=== PATIENT | female | born 1935 | race Caucasian/White ===

== ENCOUNTER 2023-08-24 05:38 | Outpatient (REF) | payer MEDICARE, SELFPAY ==
[2023-08-24 06:05] LABS: INR 2.06
== END 2023-08-24 05:39 | disposition home or self-care (01) ==
LOC: LAB 05:38
DX: I50.9 Heart failure, unspecified (principal)
CPT/HCPCS: 36415; 85610

== ENCOUNTER 2023-09-07 19:07 | Outpatient (REF) | payer MEDICARE, SELFPAY ==
--- OUTSIDE RECORDS SUMMARY | 2023-09-07 19:12 | XMS_ITS | CCD ---
Author Name Unknown Address [address] [place] [address] Organization [facility] Care Team Providers Care Senior Financial Accountant Name Role Phone Favio Garzonuso Primary Care Provider [phone] ZHEN SOLO Referring Unavailable ORTEGA GONZALEZ I Primary Care Unavailable ALAMINA, FOLUSO Primary Care Unavailable ALAMINA, FOLUSO Primary Care Unavailable EDIE HALL Attending Unavailable ALAMINA, FOLUSO Primary Care Unavailable HAMZAH LUJAN Attending Unavailable ELOY SULLIVAN Consulting Unavailable THOMAS CHANG Attending Unavailable THOMAS CHANG Admitting Unavailable ALAMINA, FOLUSO Primary Care Unavailable CARLOS ALBERTO BEST Consulting Unavailable TYRESE CLEMONS Consulting Unavailable HAMZAH BRISCOE Consulting Unavailable Medications Current Medications Medication Drug Class(es) Dates Sig (Normalized) Sig (Original) Acetaminophen (3 sources) Start: 12-09-2022 acetaminophen (TYLENOL) tablet 650 mg take 1 tablet by angel th every six hours as needed acetaminophen (TYLENOL) 500 MG tablet Ta ke 1 tablet by mouth every 6 hours as needed 0 Active Acetaminophen / HYDROcodone (1 source) Opioid Agonist Start: 12-09-2022 HYDROcodone-acetaminophen (NORCO) 5-325 MG per tablet 1 tablet apixaban 2.5 mg oral tablet (3 sources) Factor Xa Inhibitor Start: 11-20-2022 End: 12-20-2022 take 1 tablet by mouth twice daily apixaban (ELIQUIS) 2.5 MG TABS tablet Take 1 tablet by mouth 2 times daily 60 tablet 0 11/20/2022 12/20/2022 Active aspirin 81 mg chewable tablet (2 sources) Platelet Aggregation Inhibitor, Nonsteroidal Anti-inflammator y Drug Start: 03-23-2021 aspirin 81 MG chewable tablet Take 1 tablet by mouth 0 03/23/2021 Active 4 ml furosemide 10 mg/ml injection (5 sources) Loop Diuretic Start: 12-10-2022 furosemide (LASIX) injection 40 mg Start: 12-09-2022 End: 12-10-2022 furosemide (LASIX) injection 20 mg Start: 11-13-2022 End: 12-14-2022 furosemide (LASIX) 20 MG tab let TAKE 1 TABLET BY MOUTH NEEDED FOR LEG EDEMA 0 11/13/2022 Active 1 ml hydrALAZINE hydrochloride 20 mg/ml injection (1 source) Arteriolar Vasodilator Start: 12-11-2022 hydrALAZINE (APRESOLINE) injection 10 mg 1 ml HYDROmorphone hydrochloride 1 mg/ml cartridge (1 source) Opioid Agonist Start: 12-11-2022 HYDROmorphone (DILAUDID) injection 0.5 mg 100 ml magnesium sulfate 10 mg/ml injection (1 source) Start: 12-09-2022 take 1000 mg intravenously every hour as needed 1,000 mg, IntraVENous, at 100 mL/hr, Administer over 1 Hours, PRN, Other, Per IV Magnesium Replacement Protocol, Starting on 12/09/22 at 0805 Mg Lab &nb sp; Replaceme nt Action 1.4-1. 6 &nbsp ; 1 gram IVPB x 2 doses & nbsp; & nbsp; & nbsp; & nbsp; & nbsp; & nbsp; (2 gram Total) 1.0-1. 3 &nbsp ; 1 gram IVPB x 4 doses & nbsp; & nbsp; & nbsp; & nbsp; & nbsp; & nbsp; (4 gram Total) <1.0&n bsp; &n bsp; &n bsp; CALL PHYSICIAN and 1 gram IVPB x 4 doses (4 gram Total) Infuse at 1 gram/hr Repea t Mag level next AM Protocol not for use in Patients with CrCl<30ml/min&nbsp ; midodrine hydrochloride 10 mg oral tablet (3 sources) alpha-Adrenergic Agonist Start: 12-14-2022 take 0.5 tablet by mouth three times daily midodrine (PROAMATINE) 10 MG tablet Take 0.5 tablets by mouth 3 times daily 90 tablet 3 12/14/2022 Active Start: 12-12-2022 midodrine (PRO AMATINE) tablet 10 mg 1 ml morphine sulfate 2 mg/ml cartridge (1 source) Opioid Agonist Start: 12-11-2022 morphine (PF) injection 1 mg ondansetron (ZOFRAN-ODT) disintegrating tablet 4 mg (1 source) Start: 12-09-2022 ondansetron (Z OFRAN-ODT) disintegrating tablet 4 mg Potassium Chloride (1 source) Start: 12-09-2022 potassium chlo ride (KLOR-CON M) extended release tablet 40 mEq Completed/Discontinued Medications Medication Drug Class(es) Dates Sig (Normalized) Sig (Original) acetaminophen 325 mg / oxyCODONE hydrochloride 5 mg oral tablet (1 source) Opioid Agonist Start: 12-08-2022 End: 12-08-2022 oxyCODONE-acetamin ophen (PERCOCET) 5-325 MG per tablet 1 tablet digoxin 0.125 mg oral tablet (3 sources) Cardiac Glycoside Start: 12-10-2022 take 0.125 mg by mouth once daily 0.125 mg, Oral, DAILY, First dose on Sat12/10/22 at 0900, Until Discontinued Start: 05-21-2022 digoxin (LANOX IN) 125 MCG tablet Take 1 tablet by mouth 0 05/21/2022 Active 0.4 ml enoxaparin sodium 100 mg/ml prefilled syringe (1 source) Low Molecular Weight Heparin Start: 12-09-2022 End: 12-12-2022 inject 40 mg by subcutaneous injection once daily 40 mg, SubCUTAneous, DAILY, First dose on 12/09/22 at 0900, Until Discontinued Indication of Use: Prophylaxis-DVT/PE Administer by deep subCUTAneous injection with pt lying down. Alternate injection sites on abdominal wall. Do not rub site after injection. Check with provider prior to any invasive procedure. 24 hr metoprolol succinate 25 mg extended release oral tablet (2 sources) beta-Adrenergic Felipe Start: 11-09-2022 take 25 mg by mouth once daily 25 mg, Oral, DAILY, First dose on Sat12/09/22 at 2200, Until Discontinued Do not crush or chew. polyethylene glycol [id number] [id number] mg powder for oral solution (1 source) Osmotic Laxative Start: 12-09-2022 17 g, Oral, DAILY PRN, Starting on Sat12/09/22 at 0805, Until Discontinued, Constipation First line therapy for constipation sacubitril 24 mg / valsartan 26 mg oral tablet (3 sources) Angiotensin 2 Receptor Felipe Start: 12-09-2022 take 1 tablet by mouth twice daily 1 tablet, Oral, 2 TIMES DAILY, First dose on Sat12/09/22 at 2200, Until Discontinued Start: 06-02-2021 take 24-26 mg by angel th once sacubitril-valsartan (ENTRESTO) 24-26 MG per tablet Take 1 tablet by mouth 2 times daily 0 06/02/2021 Active 5 ml sodium chloride 9 mg/ml injection (8 sources) Start: 12-11-2022 0.9 % sodium c hloride infusion Start: 12-11-2022 End: 12-13-2022 sodium chloride flush 0.9 % injection 5-40 mL Start: 12-09-2022 IntraVENous, a t 5-250 mL/hr, PRN, if patient receiving piggyback infusions and maintenance fluids are not ordered OR KVO fluids to protect IV site / prevent frequent line interruptions/ long duration, Starting on Sat12/09/22 at 0805 For piggyback infusion, administer at same rate as piggyback for a total of 25 mL. Enter 25 mL into dose field and piggyback rate into rate field of order. If piggyback is infusing at a rate less than 100 mL/hr, enter 25 mL into dose field and 100 mL/hr into rate field of order. For KVO fluids, enter rate of 20 mL/hr or less into rate field of order. Start: 12-09-2022 take 1 dose intraven ously twice daily 5-40 mL, IntraVENous, EVERY 12 HOURS SCHEDULED (2 times per day), First dose on Sat12/09/22 at 0900, Until Discontinued For Line Patency: Peripheral IV = 5 mL; Midline or Central Line = 10 mL/lumen. If following IV push medication, administer flush at same rate as the IV push. Flush volume is determined by type of infusion therapy being given. For non-viscous solutions use: Peripheral IV = 5 mL Midline or Central Line = 10 mL/lumen For viscous solutions (i.e. blood components, parenteral nutrition, contrast media, or after obtaining blood sample) use: Peripheral IV = 10 mL Midline or Central Line = 20 mL/lumen Start: 12-09-2022 take 10 mL intraveno usly once as needed 10 mL, IntraVENous, PRN, Starting on Sat12/09/22 at 0805, Until Discontinued, Line Care, After every IV line use Problems Problem Classification Problem Date Documented Da te Episodic/Chronic Abdominal hernia (1 source) Umbilical hernia without obstruction or gangrene; Translations: [Umbilical hernia without obstruction or gangrene] Onset: 01-24-2023 Episodic Cardiac dysrhythmias (3 sources) Atrial fibrillation with rapid ventricular response; Translations: [Unspecified atrial fibrillation] Onset: 12-09-2022 Chronic Congestive heart failure; nonhypertensive (1 source) Heart failure, unspecified; Translations: [Heart failure, unspecified] Onset: 12-25-2022 Chronic Genitourinary symptoms and ill-defined conditions (1 source) Retention of urine, unspecified; Translations: [Retention of urine, unspecified] Onset: 01-24-2023 Episodic Other fractures (1 source) Compression fracture of lumbar spine; Translations: [Wedge compression fracture of unspecified lumbar vertebra, sequela] Episodic Other fractures (3 sources) Closed fracture lumbar vertebra; Translations: [Unspecified fracture of unspecified lumbar vertebra, initial encounter for closed fracture] Onset: 12-09-2022 Episodic Other fractures (1 source) Other specified fracture of right pubis, initial encounter for closed fracture; Translations: [Other specified fracture of right pubis, initial encounter for closed fracture] Onset: 01-24-2023 Episodic Other fractures (1 source) Unspecified fracture of sacrum, initial encounter for closed fracture; Translations: [Unspecified fracture of sacrum, initial encounter for closed fracture] Onset: 01-24-2023 Episodic Other fractures (1 source) Wedge compression fracture of unspecified lumbar vertebra, sequela; Translations: [Wedge compression fracture of unspecified lumbar vertebra, sequela] Onset: 12-08-2022 Episodic Other gastrointestinal disorders (1 source) Constipation, unspecified; Translations: [Constipation, unspecified] Onset: 01-24-2023 Episodic Other screening for suspected conditions (not mental disorders or infectious disease) (1 source) Other specified abnormal findings of blood chemistry; Translations: [Other specified abnormal findings of blood chemistry] Onset: 12-25-2022 Episodic Pleurisy; pneumothorax; pulmonary collapse (3 sources) Pleural effusion; Translations: [Pleural effusion, not elsewhere classified] Onset: 12-09-2022 Episodic Residual codes; unclassified (3 sources) Edema, generalized; Translations: [Generalized edema] Onset: 12-09-2022 Episodic Residual codes; unclassified (1 source) Pain, unspecified; Translations: [Pain, unspecified] Onset: 01-30-2023 Episodic Urinary tract infections (1 source) Urinary tract infection, site not specified; Translations: [Urinary tract infection, site not specified] Onset: 12-25-2022 Episodic Results Test Name Value Interpretation Reference Range Facility XR PELVIS (MIN 3 VIEWS)on XR PELVIS (MIN 3 VIEWS) History: 87yo FFSH with right pelvic pain Comparison: None Findings: 3 views of the pelvis (AP pelvis, inlet/outlet) showing the inferior and superior pubic ramus fracture unchanged in alignment or displacement. No significant interval healing. No soft tissue abnormalities. Scoliotic change about lumbar spine with noted bone cement within lumbar vertebrae. Osteopenic bone. Mild bilateral hip osteoarthritis. Impression: Right superior and inferior pubic ramus fracture Interpreted by: Zhen Solo DO Signed by: Zhen Solo DO 02/12/23 Final result Normal [facility] CT ABDOMEN PELVIS WO CONTRAS Ton 01-25-2023 CT ABDOMEN PELVIS WO CONTRAST EXAMINATION: CT OF THE ABDOMEN AND PELVIS WITHOUT CONTRAST 01/24/2023 8:47 pm TECHNIQUE: CT of the abdomen and pelvis was performed without the administration of intravenous contrast. Multiplanar reformatted images are provided for review. Automated exposure control, iterative reconstruction, and/or weight based adjustment of the mA/kV was utilized to reduce the radiation dose to as low as reasonably achievable. COMPARISON: Lumbar spine CT 12/08/2022. HISTORY: ORDERING SYSTEM PROVIDED HISTORY: fall yesterday, outpatient x-ray shows right superior rami fracture, low back and pelvic pain TECHNOLOGIST PROVIDED HISTORY: fall yesterday, outpatient x-ray shows right superior rami fracture, low back and pelvic pain Decision Support Exception - unselect if not a suspected or confirmed emergency medical condition->Emergency Medical Condition (MA) Reason for Exam: h/o compression fractures, new fall yesterday, low back and pelvic pain, outpatient x-ray shows right superior rami fracture FINDINGS: Lower Chest: There is a trace right pleural effusion. There is no confluent consolidation at the lung bases. Organs: The liver, gallbladder, spleen, adrenal glands and pancreas are unremarkable. There is mild bilateral hydronephrosis. GI/Bowel: No bowel dilatation or bowel wall thickening is noted. There is a moderate amount of stool in the colon. An umbilical hernia contains a loop of small bowel. Pelvis: There is moderate to severe distension of the bladder. The uterus is unremarkable. Peritoneum/Retroperit oneum: No evidence of lymphadenopathy. Aorta is normal in caliber. No fat stranding, free fluid, free air or focal fluid collection is identified. Bones/Soft Tissues: There is a nondisplaced fracture of the right sacral ala. There is an oblique fracture of the medial aspect of the right superior pubic ramus with mild inferior displacement of the medial fracture fragment. There is a fracture of the inferior ramus with lateral displacement of the anterior fracture fragment. There has been treatment of a T12 compression fracture and of an L3 compression fracture in the interval. Compression fractures at L1, L2 and L3 appear unchanged. No other fracture is noted. IMPRESSION: 1. Right obturator ring fractures including an oblique fracture of the superior ramus medially with mild inferior displacement of the medial fracture fragment and a transverse inferior ramus fracture with lateral displacement of the anterior fracture fragment. There is also a nondisplaced right sacral lydia are fracture. 2. No CT evidence of acute injury elsewhere in the abdomen or pelvis. 3. Moderate to severe distension of the bladder which raise the question of bladder outlet obstruction and mild bilateral hydronephrosis which is likely related. 4. Trace right pleural effusion. 5. Small bowel containing umbilical hernia with no associated bowel obstruction. 6. Moderate stool in the colon which could reflect constipation. Interpreted by: Abdifatah Ac MD Signed by: Abdifatah Ac MD 01/24/23 Final result Normal [facility] CT HEAD WO CONTRASTon 2022 CT HEAD WO CONTRAST EXAMINATION: CT OF THE HEAD WITHOUT CONTRAST 01/24/2023 6:47 pm TECHNIQUE: CT of the head was performed without the administration of intravenous contrast. Automated exposure control, iterative reconstruction, and/or weight based adjustment of the mA/kV was utilized to reduce the radiation dose to as low as reasonably achievable. COMPARISON: None. HISTORY: ORDERING SYSTEM PROVIDED HISTORY: fall yesterday, hit head, on Eliquis TECHNOLOGIST PROVIDED HISTORY: fall yesterday, hit head, on Eliquis Decision Support Exception - unselect if not a suspected or confirmed emergency medical condition->Emergency Medical Condition (MA) Reason for Exam: fall yesterday, hit head, on Eliquis FINDINGS: BRAIN/VENTRICLES: There is a small area of loss of lauren-white differentiation in the right parietal lobe medially. Attenuation of this region is relatively low. There is a similar small area of loss of lauren-white differentiation in the right frontal lobe anteriorly on image 16 of series 3. There is no loss of lauren-white differentiation elsewhere. There is no acute intracranial hemorrhage or mass effect. There is generalized volume loss with multifocal areas of white matter hypoattenuation. The ventricles and cisterns normally patent. No abnormal extra-axial fluid collection is identified. ORBITS: The visualized portion of the orbits demonstrate no acute abnormality. SINUSES: The visualized paranasal sinuses and mastoid air cells demonstrate no acute abnormality. SOFT TISSUES/SKULL: No acute abnormality of the visualized skull or soft tissues. IMPRESSION: 1. No CT evidence of acute injury. 2. 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 These are of uncertain acuity, but favored to be old given their attenuation. 3. Volume loss and chronic microvascular ischemic changes. Interpreted by: Abdifatah Ac MD Signed by: Abdifatah Ac MD 01/24/23 Final result Normal [facility] CT LUMBAR SPINE WO CONTRASTo n 01-25-2023 CT LUMBAR SPINE WO CONTRAST EXAMINATION: CT OF THE LUMBAR SPINE WITHOUT CONTRAST 01/24/2023 TECHNIQUE: CT of the lumbar spine was performed without the administration of intravenous contrast. Multiplanar reformatted images are provided for review. Adjustment of mA and/or kV according to patient size was utilized. Automated exposure control, iterative reconstruction, and/or weight based adjustment of the mA/kV was utilized to reduce the radiation dose to as low as reasonably achievable. COMPARISON: CT lumbar spine performed 12/08/2022. HISTORY: ORDERING SYSTEM PROVIDED HISTORY: h/o compression fractures, new fall yesterday, low back and pelvic pain, outpatient x-ray shows right superior rami fracture TECHNOLOGIST PROVIDED HISTORY: h/o compression fractures, new fall yesterday, low back and pelvic pain, outpatient x-ray shows right superior rami fracture Decision Support Exception - unselect if not a suspected or confirmed emergency medical condition->Emergency Medical Condition (MA) Reason for Exam: h/o compression fractures, new fall yesterday, low back and pelvic pain, outpatient x-ray shows right superior rami fracture FINDINGS: BONES/ALIGNMENT: There is levocurvature of the lumbar spine. There is remote compression deformity status post kyphoplasty at T10, T11, and L3. There is stable remote compression deformity at L1, L2, and L4. There is no spondylolisthesis. DEGENERATIVE CHANGES: There is multilevel degenerative change with endplate osteophytosis throughout the lumbar spine. There is multilevel degenerative facet hypertrophy. There is no significant canal stenosis. There is bony foraminal narrowing most pronounced on the right at L3-4, L4-5, and L5-S1. SOFT TISSUES/RETROPERITONE UM: The posterior paraspinal soft tissues are unremarkable. There are trace pleural effusions. IMPRESSION: Levocurvature with remote compression deformity at T10, T11, L1, L2, L3, and L4 with prior kyphoplasty at T10, T11, and L3. No definite acute lumbar spine abnormality. Interpreted by: Thiago Rosenthal MD Signed by: Thiago Rosenthal MD 01/24/23 Final result Normal [facility] BASIC METABOLIC PANELon 06-0 Anion gap [Moles/Vol] 9 mmol/L Normal 7-20 [facility] Comment on above: Performed By: #### L [id number] #### [facility] [[email or web address] LAB ([facility]) [address] [place] [address] Calcium [Mass/Vol] 8.5 mg/dL Low 8.6-10.3 [facility] Comment on above: Performed By: #### L [id number] #### [facility] [[email or web address] LAB ([facility]) [address] [place] [address] Chloride [Moles/Vol] 106 mmol/L Normal 98-107 [facility] Comment on above: Performed By: #### L [id number] #### [facility] [[email or web address]] LAB ([facility]) [address] [place] [address] CO2 [Moles/Vol] 28 mmol/L Normal 21-31 [facility] Comment on above: Performed By: #### L [id number] #### [facility] [[email or web address] [address] [place] [address] Creatinine [Mass/Vol] 0.64 mg/dL Normal 0.60-1.20 [facility] Comment on above: Performed By: #### L [id number] #### [facility] [[email or web address]] LAB ([facility]) [address] [place] [address] GLOMERULAR FILTRATION RATE ML/MIN/1.73 SQ M.PREDICTED 86.0 mL/min/1.73m*2 Normal >60.0 [facility] Comment on above: Result Comment: [facility]???s estimated glomerular filtration rate (eGFR) will no longer include consideration of race in its calculation. The National Kidney Foundation???s eGFR Task Force developed new recommendations for the estimation of the glomerular filtration rate in the [place] They recommend immediate implementation of the new equation refit without the race variable in all laboratories because the calculation does not include race. In addition to not including race in the calculation and reporting, it included diversity in its development, and has acceptable performance characteristics and potential consequences that do not disproportionately affect any one group of individuals. Performed By: #### L [id number] #### [facility] [[email or web address]] LAB ([facility]) [address] [place] [address] Glucose [Mass/Vol] 78 mg/dL Normal 70-100 [facility] Comment on above: Performed By: #### L [id number] #### [facility] [[email or web address]] LAB ([facility]) [address] [place] [address] Potassium [Moles/Vol] 4.5 mmol/L Normal 3.5-5.1 [facility] Comment on above: Performed By: #### L [id number] #### [facility] [[email or web address]] LAB ([facility]) [address] [place] [address] Sodium [Moles/Vol] 138 mmol/L Normal 136-145 [facility] Comment on above: Performed By: #### L [id number] #### [facility] [[email or web address]] LAB ([facility]) [address] [place] [address] Urea nitrogen [Mass/Vol] 17 mg/dL Normal 7-25 [facility] Comment on above: Performed By: #### L [id number] #### [facility] [[email or web address]] LAB ([facility]) [address] [place] [address] UREA NITROGEN/CREATININE (MASS RATIO) IN SER/PLAS 26.6 Normal [facility] Comment on above: Performed By: #### L [id number] #### [facility] [[email or web address]] LAB ([facility]) [address] [place] [address] CBCon 01-16-2023 Erythrocyte distribution width (RBC) [Ratio] 21.6 % High 11.5-15.0 [facility] Comment on above: Performed By: #### L [id number] #### [facility] [[email or web address]] LAB ([facility]) [address] [place] [address] ERYTHROCYTE MEAN CORPUSCULAR HEMOGLOBIN CONCENTRATION (G/DL) BY AUTOMATED 30.9 g/dL Low 32.0-35.0 [facility] Comment on above: Performed By: #### L [id number] #### [facility] [[email or web address]] LAB ([facility]) [address] [place] [place] [address] Hematocrit (Bld) [Volume fraction] 37.6 % Normal 36.0-48.0 [facility] Comment on above: Performed By: #### L [id number] #### [facility] [[email or web address]] LAB ([facility]) [address] [place] [place] [address] Hemoglobin (Bld) [Mass/Vol] 11.6 g/dL Low 12.0-15.0 [facility] Comment on above: Performed By: #### L [id number] #### [facility] [[email or web address]] LAB ([facility]) [address] [place] [address] MCH (RBC) [Entitic mass] 29.5 pg Normal 27.0-33.0 [facility] Comment on above: Performed By: #### L [id number] #### [facility] [[email or web address]] LAB ([facility]) [address] [place] [address] MCV (RBC) [Entitic vol] 95.7 fL Normal 82.0-98.0 [facility] Comment on above: Performed By: #### L [id number] #### [facility] [[email or web address]] LAB ([facility]) [address] [place] [address] PLATELETS (10*3/UL) IN BLOOD AUTOMATED COUNT 313 10*3/uL Normal 150-400 [facility] Comment on above: Performed By: #### L [id number] #### [facility] [[email or web address]] [facility] ([facility]) [address] [place] [address] RBC (Bld) [#/Vol] 3.93 10*6/uL Normal 3.80-5.00 [facility] Comment on above: Performed By: #### L [id number] #### [facility] ([facility]) [address] [place] [address] WBC (Bld) [#/Vol] 7.89 10*3/uL Normal 4.00-10.60 [facility] Comment on above: Performed By: #### L [id number] #### [facility] [[email or web address] LAB ([facility]) [address] [place] [address] URINALYSISon 01-15-2023 BILIRUBIN, TOTAL PRESENCE IN URINE Negative Normal Negative [facility] Comment on above: Order Comment: Micro scopics not performed on urines with negative chemical reactions unless requested on original order. Performed By: #### L [id number] #### [facility] [[email or web address] LAB ([facility]) [address] [place] [address] Clarity (U) Clear Normal Clear [facility] Comment on above: Order Comment: Micro scopics not performed on urines with negative chemical reactions unless requested on original order. Performed By: #### L [id number] #### [facility] [[email or web address] LAB ([facility]) [address] [place] [address] Color (U) Yellow Normal Yellow [facility] Comment on above: Order Comment: Micro scopics not performed on urines with negative chemical reactions unless requested on original order. Performed By: #### L [id number] #### [facility] [[email or web address] LAB ([facility]) [address] [place] [address] Glucose (U) [Mass/Vol] Negative Normal Negative [facility] Comment on above: Order Comment: Micro scopics not performed on urines with negative chemical reactions unless requested on original order. Performed By: #### L [id number] #### [facility] [[email or web address] LAB ([facility]) [address] [place] [address] HEMOGLOBIN PRESENCE IN URINE Negative Normal Negative [facility] Comment on above: Order Comment: Micro scopics not performed on urines with negative chemical reactions unless requested on original order. Performed By: #### L [id number] #### [facility] [[email or web address] LAB ([facility]) [address] [place] [address] Ketones Ql (U) Negative Normal Negative [facility] Comment on above: Order Comment: Micro scopics not performed on urines with negative chemical reactions unless requested on original order. Performed By: #### L [id number] #### [facility] [[email or web address] LAB ([facility]) [address] [place] [address] LEUKOCYTE ESTERASE PRESENCE IN URINE BY TEST STRIP Negative Normal Negative [facility] Comment on above: Order Comment: Micro scopics not performed on urines with negative chemical reactions unless requested on original order. Performed By: #### L [id number] #### [facility] [[email or web address] LAB ([facility]) [address] [place] [address] NITRITE PRESENCE IN URINE Negative Normal Negative [facility] Comment on above: Order Comment: Micro scopics not performed on urines with negative chemical reactions unless requested on original order. Performed By: #### L [id number] #### [facility] [[email or web address] LAB ([facility]) [address] [place] [address] pH (U) 7.0 [pH] Normal 5.0-8.0 [facility] Comment on above: Order Comment: Micro scopics not performed on urines with negative chemical reactions unless requested on original order. Performed By: #### L [id number] #### [facility] [[email or web address] LAB ([facility]) [address] [place] [address] Protein (U) [Mass/Vol] Negative Normal Negative [facility] Comment on above: Order Comment: Micro scopics not performed on urines with negative chemical reactions unless requested on original order. Performed By: #### L [id number] #### [facility] [[email or web address] LAB ([facility]) [address] [place] [address] Specific gravity (U) [Rel density] 1.013 Low 1.015-1.020 [facility] Comment on above: Order Comment: Micro scopics not performed on urines with negative chemical reactions unless requested on original order. Performed By: #### L [id number] #### [facility] [[email or web address] LAB ([facility]) [address] [place] [address] URINE CULTURE, ROUTINEon Ampicillin [Susc] >8 Resistant [facility] Comment on above: Performed By: #### L [id number] #### [facility] [[email or web address] LAB ([facility]) [address] [place] [address] DAPTOmycin [Susc] 2 ug/ml Susceptible [facility] Comment on above: Performed By: #### L [id number] #### [facility] [[email or web address] LAB ([facility]) [address] [place] [address] Linezolid [Susc] <=1 Susceptible [facility] Comment on above: Performed By: #### L [id number] #### [facility] [[email or web address] LAB ([facility]) [address] [place] [address] Vancomycin [Susc] >16 Resistant [facility] Comment on above: Performed By: #### L [id number] #### [facility] [[email or web address] LAB ([facility]) [address] [place] [address] B-TYPE NATRIURETIC PEPTIDEon 12-28-2022 Natriuretic peptide B (Bld) [Mass/Vol] 1447 pg/mL High 0-100 [facility] Comment on above: Performed By: #### L [id number] #### [facility] [[email or web address] LAB ([facility]) [address] [place] [address] BASIC METABOLIC PANELon - Anion gap [Moles/Vol] 23 mmol/L High 7-20 [facility] Comment on above: Performed By: #### L [id number] #### [facility] [[email or web address] LAB ([facility]) [address] [place] [address] Calcium [Mass/Vol] 8.1 mg/dL Low 8.6-10.3 [facility] Comment on above: Performed By: #### L [id number] #### [facility] [[email or web address] LAB ([facility]) [address] [place] [address] Chloride [Moles/Vol] 108 mmol/L High 98-107 [facility] Comment on above: Performed By: #### L [id number] #### [facility] [[email or web address] LAB ([facility]) [address] [place] [address] CO2 [Moles/Vol] 13 mmol/L Invalid Interpretation Code 21-31 [facility] Comment on above: Performed By: #### L [id number] #### [facility] [[email or web address] LAB ([facility]) [address] [place] [address] Creatinine [Mass/Vol] 0.86 mg/dL Normal 0.60-1.20 [facility] Comment on above: Performed By: #### L [id number] #### [facility] [[email or web address] LAB ([facility]) [address] [place] [address] GLOMERULAR FILTRATION RATE ML/MIN/1.73 SQ M.PREDICTED 65.8 mL/min/1.73m*2 Normal >60.0 [facility] Comment on above: Result Comment: [facility]???s estimated glomerular filtration rate (eGFR) will no longer include consideration of race in its calculation. The National Kidney Foundation???s eGFR Task Force developed new recommendations for the estimation of the glomerular filtration rate in the [place] They recommend immediate implementation of the new equation refit without the race variable in all laboratories because the calculation does not include race. In addition to not including race in the calculation and reporting, it included diversity in its development, and has acceptable performance characteristics and potential consequences that do not disproportionately affect any one group of individuals. Performed By: #### L [id number] #### [facility] [[email or web address] LAB ([facility]) [address] [place] [address] Glucose [Mass/Vol] 41 mg/dL Invalid Interpretation Code 70-100 [facility] Comment on above: Performed By: #### L [id number] #### [facility] [[email or web address] LAB ([facility]) [address] [place] [address] Potassium [Moles/Vol] 5.3 mmol/L High 3.5-5.1 [facility] Comment on above: Performed By: #### L [id number] #### [facility] [[email or web address] LAB ([facility]) [address] [place] [address] Sodium [Moles/Vol] 139 mmol/L Normal 136-145 [facility] Comment on above: Performed By: #### L [id number] #### [facility] [[email or web address]] LAB ([facility]) [address] [place] [address] Urea nitrogen [Mass/Vol] 20 mg/dL Normal 7-25 [facility] Comment on above: Performed By: #### L [id number] #### [facility] [[email or web address] LAB ([facility]) [address] [place] [address] UREA NITROGEN/CREATININE (MASS RATIO) IN SER/PLAS 23.3 Normal [facility] Comment on above: Performed By: #### L [id number] #### [facility] [[email or web address] LAB ([facility]) [address] [place] [address] XR CHEST PORTABLEon 12-27-19 XR CHEST PORTABLE EXAMINATION: ONE XRAY VIEW OF THE CHEST 12/25/2022 5:40 pm COMPARISON: December 12, 2022 HISTORY: ORDERING SYSTEM PROVIDED HISTORY: altered mental status TECHNOLOGIST PROVIDED HISTORY: altered mental status Reason for Exam: Altered mental status FINDINGS: Redemonstration of cardiomegaly. Increased opacity of the right chest is less pronounced compared to the previous evaluation. Right effusion is smaller. Right lower lobe atelectatic changes. No evidence of pulmonary edema. No evidence of left lung infiltrates. IMPRESSION: Improvement and right effusion and right lower lobe atelectatic changes. Redemonstration of cardiomegaly. Interpreted by: Radha Rizo MD Signed by: Radha Rizo MD 12/25/22 Final result Normal [facility] B-TYPE NATRIURETIC PEPTIDEon 12-25-2022 Natriuretic peptide B (Bld) [Mass/Vol] 1854 pg/mL High 0-100 [facility] Comment on above: Performed By: #### L [id number] #### [facility] [[email or web address]] LAB ([facility]) [address] [place] [address] BASIC METABOLIC PANELon 12-10 Anion gap [Moles/Vol] 15 mmol/L Normal 7-20 [facility] Comment on above: Performed By: #### L [id number] #### [facility] [[email or web address] LAB ([facility]) [address] [place] [address] Calcium [Mass/Vol] 8.0 mg/dL Low 8.6-10.3 [facility] Comment on above: Performed By: #### L [id number] #### [facility] [[email or web address] LAB ([facility]) [address] [place] [address] Chloride [Moles/Vol] 106 mmol/L Normal 98-107 [facility] Comment on above: Performed By: #### L [id number] #### [facility] [[email or web address] LAB ([facility]) [address] [place] [address] CO2 [Moles/Vol] 22 mmol/L Normal 21-31 [facility] Comment on above: Performed By: #### L [id number] #### [facility] [[email or web address] LAB ([facility]) [address] [place] [address] Creatinine [Mass/Vol] 0.77 mg/dL Normal 0.60-1.20 [facility] Comment on above: Performed By: #### L [id number] #### [facility] [[email or web address] LAB ([facility]) [address] [place] [address] GLOMERULAR FILTRATION RATE ML/MIN/1.73 SQ M.PREDICTED 75.1 mL/min/1.73m*2 Normal >60.0 [facility] Comment on above: Result Comment: [facility]???s estimated glomerular filtration rate (eGFR) will no longer include consideration of race in its calculation. The National Kidney Foundation???s eGFR Task Force developed new recommendations for the estimation of the glomerular filtration rate in the [place] They recommend immediate implementation of the new equation refit without the race variable in all laboratories because the calculation does not include race. In addition to not including race in the calculation and reporting, it included diversity in its development, and has acceptable performance characteristics and potential consequences that do not disproportionately affect any one group of individuals. Performed By: #### L [id number] #### [facility] [[email or web address]] LAB ([facility]) [address] [place] [address] Glucose [Mass/Vol] 48 mg/dL Invalid Interpretation Code 70-100 [facility] Comment on above: Performed By: #### L [id number] #### [facility] [[email or web address] [address] [place] [address] Potassium [Moles/Vol] 5.3 mmol/L High 3.5-5.1 [facility] Comment on above: Result Comment: M-CH EMISTRY SPECIMEN MODERATELY HEMOLYZED RESULTS MAY NOT BE ACCURATE Performed By: #### L [id number] #### [facility] [[email or web address] LAB ([facility]) [address] [place] [address] Sodium [Moles/Vol] 138 mmol/L Normal 136-145 [facility] Comment on above: Performed By: #### L [id number] #### [facility] [[email or web address] LAB ([facility]) [address] [place] [address] Urea nitrogen [Mass/Vol] 14 mg/dL Normal 7-25 [facility] Comment on above: Performed By: #### L [id number] #### [facility] [[email or web address] LAB ([facility]) [address] [place] [address] UREA NITROGEN/CREATININE (MASS RATIO) IN SER/PLAS 18.2 Normal [facility] Comment on above: Performed By: #### L [id number] #### [facility] [[email or web address] LAB ([facility]) [address] [place] [address] Basic Metabolic Profon 12-25 Anion gap [Moles/Vol] 12 mmol/L Normal 9-17 [facility] Comment on above: Performed By: #### KYE HUANG #### [facility] [address] [place] [address] Cable Machine Operator: Paddy Juares MD Calcium [Mass/Vol] 8.4 mg/dL Low 8.6-10.4 [facility] Comment on above: Performed By: #### RENEE HUANGX #### [facility] [id number] [place] [address] [employer] Machine Operator: Paddy Juares MD Chloride [Moles/Vol] 103 mmol/L Normal 98-107 [facility] Comment on above: Performed By: #### U MICAO, UAX #### [place] [id number] [employer] Machine Operator: Paddy Juares MD CO2 [Moles/Vol] 25 mmol/L Normal 20-31 [facility] Comment on above: Performed By: #### U MICAO, UAX #### [place] [address] Cable Machine Operator: Paddy Juares MD Creatinine [Mass/Vol] 0.72 mg/dL Normal 0.50-0.90 [facility] Comment on above: Performed By: #### U MICAO, UAX #### [place] [address] Cable Machine Operator: Paddy Juares MD GFR/1.73 sq M.predicted among non-blacks MDRD (S/P/Bld) [Vol rate/Area] mL/min/{1.73_m2} Normal >60 [facility] Comment on above: Result Comment: These results are not intended for use in patients <18 years of age. eGFR results are calculated without a race factor using the 2020 CKD-EPI equation. Careful clinical correlation is recommended, particularly when comparing to results calculated using previous equations. The CKD-EPI equation is less accurate in patients with extremes of muscle mass, extra-renal metabolism of creatine, excessive creatine ingestion, or following therapy that affects renal tubular secretion. Performed By: #### U MICAO, UAX #### [place] [id number] Cable Machine Operator: Paddy Juares MD Glucose [Mass/Vol] 79 mg/dL Normal 70-99 [facility] Comment on above: Performed By: #### U MICAO, UAX #### [place] [address] Cable Machine Operator: Paddy Juares MD Potassium [Moles/Vol] 3.7 mmol/L Normal 3.7-5.3 [facility] Comment on above: Performed By: #### Jonh AGUILERA UAX #### [address] [address] Cable Machine Operator: Paddy Juares MD Sodium [Moles/Vol] 140 mmol/L Normal 135-144 [facility] Comment on above: Performed By: #### Jonh AGUILERA UAX #### [place] [id number] Cable Machine Operator: Paddy Juares MD Urea nitrogen [Mass/Vol] 13 mg/dL Normal 8-23 [facility] Comment on above: Performed By: #### Jonh AGUILERA UAX #### [place] [id number] Cable Machine Operator: Paddy Juares MD Brain Natri. Peptideon 12-25 Natriuretic peptide B (Bld) [Mass/Vol] 8736 pg/mL High <300 [facility] Comment on above: Result Comment: An age-independent cutoff point of 300 pg/ml has a 98% negative predictive value excluding acute heart failure. Performed By: #### Jonh AGUILERA UAX #### [place] [id number] [employer] Machine Operator: Paddy Juares MD CBCon 12-25-2022 Hemoglobin (Bld) [Mass/Vol] 14.0 g/dL Normal 12.0-16.0 [facility] Comment on above: Performed By: #### L [id number] #### [facility] [[email or web address]] LAB ([facility]) [address] [place] [address] Performed By: #### Jonh AGUILERA UAX #### [place] [id number] [place], [place] [id number] Cable Machine Operator: Paddy Juares MD Erythrocyte distribution width (RBC) [Ratio] 21.7 % High 11.5-15.0 [facility] Comment on above: Performed By: #### L [id number] #### [facility] [[email or web address] LAB ([facility]) [address] [place] [address] ERYTHROCYTE MEAN CORPUSCULAR HEMOGLOBIN CONCENTRATION (G/DL) BY AUTOMATED 31.1 g/dL Low 32.0-35.0 [facility] Comment on above: Performed By: #### L [id number] #### [facility] [[email or web address] LAB ([facility]) [address] [place] [address] Hematocrit (Bld) [Volume fraction] 45.0 % Normal 36.0-48.0 [facility] Comment on above: Performed By: #### L [id number] #### [facility] [[email or web address] LAB ([facility]) [address] [place] [address] MCH (RBC) [Entitic mass] 28.9 pg Normal 27.0-33.0 [facility] Comment on above: Performed By: #### L [id number] #### [email or web address] LAB ([facility]) [address] [place] [address] MCV (RBC) [Entitic vol] 92.8 fL Normal 82.0-98.0 [facility] Comment on above: Performed By: #### L [id number] #### [facility] [[email or web address] LAB ([facility]) [address] [place] [address] PLATELETS (10*3/UL) IN BLOOD AUTOMATED COUNT 327 10*3/uL Normal 150-400 [facility] Comment on above: Performed By: #### L [id number] #### [email or web address] LAB ([facility]) [address] [place] [address] RBC (Bld) [#/Vol] 4.85 10*6/uL Normal 3.80-5.00 [facility] Comment on above: Performed By: #### L [id number] #### [email or web address] LAB ([facility]) [address] [place] [address] WBC (Bld) [#/Vol] 9.86 10*3/uL Normal 4.00-10.60 [facility] Comment on above: Performed By: #### L [id number] #### [email or web address] LAB ([facility]) [address] [place] [address] CBC with Diffon 12-25-2022 Abs. Basophil 0.00 k/uL Normal 0.0-0.2 [facility] Comment on above: Performed By: #### U WILLY UAX #### [place] [address] Cable Machine Operator: Paddy Juares MD Abs.Neutrophil (Seg) 9.63 k/uL High 1.8-7.7 [facility] Comment on above: Performed By: #### Jonh AGUILERA UAX #### [place] [address] Cable Machine Operator: Paddy Juares MD Basophils/100 WBC (Bld) 0 % Normal 0-2 [facility] Comment on above: Performed By: #### Jonh AGUILERA UAX #### [place] [address] Cable Machine Operator: Paddy Juares MD Eosinophils (Bld) [#/Vol] 0.00 10*3/uL Normal 0.0-0.4 [facility] Comment on above: Performed By: #### U WILLY UAX #### [place] [address] Cable Machine Operator: Paddy Juares MD Eosinophils/100 WBC (Bld) 0 % Low 1-4 [facility] Comment on above: Performed By: #### U WILLY UAX #### [facility] [id number] [place] [address] Cable Machine Operator: Paddy Juares MD Lymphocytes (Bld) [#/Vol] 0.32 10*3/uL Low 1.0-4.8 [facility] Comment on above: Performed By: #### U MAILEO, UAX #### [place] [address] Cable Machine Operator: Paddy Juares MD Lymphocytes/100 WBC (Bld) 3 % Low 24-44 [facility] Comment on above: Performed By: #### U MAILEO, UAX #### [place] [address] Cable Machine Operator: Paddy Juares MD Monocytes (Bld) [#/Vol] 0.75 10*3/uL Normal 0.1-0.8 [facility] Comment on above: Performed By: #### U MAILEO, UAX #### [place] [address] Cable Machine Operator: Paddy Juares MD Monocytes/100 WBC (Bld) 7 % Normal 1-7 [facility] Comment on above: Performed By: #### U WILLY, UAX #### [place] [address] Cable Machine Operator: Paddy Juares MD Morphology Juan Manuel (Bld) [Interp] ANISOCYTOSIS PRESENT Normal [facility] Comment on above: Performed By: #### U MAILEO, UAX #### [place] [address] Cable Machine Operator: Paddy Juares MD Neutrophil (Seg) 90 % High 36-66 [facility] Comment on above: Performed By: #### U WILLY, UAX #### [place] [address] Cable Machine Operator: Paddy Juares MD Erythrocyte distribution width (RBC) [Ratio] 23.0 % High 12.5-15.4 [facility] Comment on above: Performed By: #### U WILLY UAX #### [place] [address] Cable Machine Operator: Paddy Juares MD Hematocrit (Bld) [Volume fraction] 44.7 % Normal 36-46 [facility] Comment on above: Performed By: #### Jonh AGUILERA UAX #### [place] [address] Cable Machine Operator: Paddy Juares MD MCH (RBC) [Entitic mass] 29.1 pg Normal 26-34 [facility] Comment on above: Performed By: #### Jonh AGUILERA UAX #### [place] [address] Cable Machine Operator: Paddy Juares MD MCHC (RBC) [Mass/Vol] 31.3 g/dL Normal 31-37 [facility] Comment on above: Performed By: #### Jonh AGUILERA UAX #### [place] [address] Cable Machine Operator: Paddy Juares MD MCV (RBC) [Entitic vol] 92.9 fL Normal 80-100 [facility] Comment on above: Performed By: #### U WILLY UAX #### [place] [address] Cable Machine Operator: Paddy Juares MD Platelet mean volume (Bld) [Entitic vol] 10.5 fL Normal 8.0-14.0 [facility] Comment on above: Performed By: #### U MICAO, UAX #### [place] [address] Cable Machine Operator: Paddy Juares MD Platelets (Bld) [#/Vol] 289 10*3/uL Normal 140-450 [facility] Comment on above: Performed By: #### U MICAO, UAX #### [place] [address] Cable Machine Operator: Paddy Juares MD RBC (Bld) [#/Vol] 4.81 10*6/uL Normal 4.0-5.2 [facility] Comment on above: Performed By: #### U MICAO, UAX #### [place] [address] Cable Machine Operator: Paddy Juares MD WBC (Bld) [#/Vol] 10.7 10*3/uL Normal 3.5-11.0 [facility] Comment on above: Performed By: #### U MICAO, UAX #### [place] [address] Cable Machine Operator: Paddy Juares MD Specimen Rejectionon 023 Reason for rejection Unable to perform testing: Specimen quantity not sufficient. Normal [facility] Comment on above: Performed By: #### U MICAO, UAX #### [place] [address] Cable Machine Operator: Paddy Juares MD Source of sample .BLOOD Normal [facility] Comment on above: Performed By: #### U MICAO, UAX #### [place] [address] Cable Machine Operator: Paddy Juares MD Test ordered BMP TROPI BNP Normal [facility] Comment on above: Performed By: #### U MICAO, UAX #### [place] [address] [employer] Machine Operator: Paddy Juares MD Troponinon 12-25-2022 Troponin, High Sens 51 ng/L High 014 [facility] Comment on above: Result Comment: High Sensitivity Troponin values cannot be compared with other Troponin methodologies. Performed By: #### T ROPI #### [place] [address] [employer] Machine Operator: Paddy Juares MD Troponin, High Sens 50 ng/L High 0-14 [facility] Comment on above: Result Comment: High Sensitivity Troponin values cannot be compared with other Troponin methodologies. Performed By: #### U MICAO, UAX #### [place] [address] Cable Machine Operator: Paddy Juares MD UA w/Reflex Cultureon 2022 Bilirubin, SemiQt,Ur Negative Normal NEG [facility] Comment on above: Performed By: #### U MICAO, UAX #### [place] [address] Cable Machine Operator: Paddy Juares MD Blood, Urine Negative Normal NEG [facility] Comment on above: Performed By: #### U MICAO, UAX #### [place] [address] Cable Machine Operator: Paddy Juares MD Clarity (U) Clear Normal CLEAR [facility] Comment on above: Performed By: #### U MICAO, UAX #### [address] [phone] [employer] Operator: Paddy Juares MD Color (U) Yellow Normal YEL [facility] Comment on above: Performed By: #### U MICAO, UAX #### [address] [address] [employer] Machine Operator: Paddy Juares MD Glucose Ql (U) Negative Normal NEG [facility] Comment on above: Performed By: #### U MICAO, UAX #### [address] [phone] [employer] Machine Operator: Paddy Juares MD Ketones Ql (U) Negative Normal NEG [facility] Comment on above: Performed By: #### U MICAO, UAX #### [place] [address] Cable Machine Operator: Paddy Juares MD Leukocyte esterase Test strip Ql (U) Negative Normal NEG [facility] Comment on above: Performed By: #### U MICAO, UAX #### [address] [phone] [employer] Operator: Paddy Juares MD Nitrite,Ur Positive Abnormal NEG [facility] Comment on above: Performed By: #### U MICAO, UAX #### [address] [phone] Cable Machine Operator: Paddy Juares MD PH,Ur 8.0 Normal 5.0-8.0 [facility] Comment on above: Performed By: #### U MICAO, UAX #### [address] [phone] Cable Machine Operator: Paddy Juares MD Protein Ql (U) Negative Normal NEG [facility] Comment on above: Performed By: #### U MAILEO, UAX #### [facility] [id number] [place] [address] [phone] [employer] Machine Operator: Paddy Juares MD Spec. Veblen,Ur 1.015 Normal 1.005-1.030 [facility] Comment on above: Performed By: #### U MAILEO, UAX #### [place] [phone] Cable Machine Operator: Paddy Juares MD Urobilinogen,Ur Normal Normal NORM [facility] Comment on above: Performed By: #### U MAILEO, UAX #### [place] [phone] [employer] Machine Operator: Paddy Juares MD URINALYSISon 12-25-2022 BILIRUBIN, TOTAL PRESENCE IN URINE Negative Normal Negative [facility] Comment on above: Order Comment: Micro scopics not performed on urines with negative chemical reactions unless requested on original order. Performed By: #### L [id number] #### [facility] [[email or web address] LAB (AKER) [address] [place] [address] Clarity (U) Clear Normal Clear [facility] Comment on above: Order Comment: Micro scopics not performed on urines with negative chemical reactions unless requested on original order. Performed By: #### L [id number] #### [facility] [[email or web address] LAB (BEAKER) [address] [facility] [place] [address] Color (U) Yellow Normal Yellow [facility] Comment on above: Order Comment: Micro scopics not performed on urines with negative chemical reactions unless requested on original order. Performed By: #### L [id number] #### [facility] [[email or web address] LAB (BEAKER) [address] [place] [address] Glucose (U) [Mass/Vol] Negative Normal Negative [facility] Comment on above: Order Comment: Micro scopics not performed on urines with negative chemical reactions unless requested on original order. Performed By: #### L [id number] #### [facility] ([facility]) [address] [place] [address] HEMOGLOBIN PRESENCE IN URINE Negative Normal Negative [facility] Comment on above: Order Comment: Micro scopics not performed on urines with negative chemical reactions unless requested on original order. Performed By: #### L [id number] #### [facility] [[email or web address] LAB ([facility]) [address] [place] [address] Ketones Ql (U) Negative Normal Negative [facility] Comment on above: Order Comment: Micro scopics not performed on urines with negative chemical reactions unless requested on original order. Performed By: #### L [id number] #### [facility] [[email or web address] LAB ([facility]) [address] [place] [address] LEUKOCYTE ESTERASE PRESENCE IN URINE BY TEST STRIP Negative Normal Negative [facility] Comment on above: Order Comment: Micro scopics not performed on urines with negative chemical reactions unless requested on original order. Performed By: #### L [id number] #### [facility] [[email or web address] LAB ([facility]) [address] [place] [address] NITRITE PRESENCE IN URINE Negative Normal Negative [facility] Comment on above: Order Comment: Micro scopics not performed on urines with negative chemical reactions unless requested on original order. Performed By: #### L [id number] #### [facility] [[email or web address] LAB ([facility]) [address] [place] [address] pH (U) 8.0 [pH] Normal 5.0-8.0 [facility] Comment on above: Order Comment: Micro scopics not performed on urines with negative chemical reactions unless requested on original order. Performed By: #### L [id number] #### [facility] [[email or web address] LAB ([facility]) [address] [place] [address] Protein (U) [Mass/Vol] Negative Normal Negative [facility] Comment on above: Order Comment: Micro scopics not performed on urines with negative chemical reactions unless requested on original order. Performed By: #### L [id number] #### [facility] [[email or web address] LAB ([facility]) [address] [place] [address] Specific gravity (U) [Rel density] 1.009 Low 1.015-1.020 [facility] Comment on above: Order Comment: Micro scopics not performed on urines with negative chemical reactions unless requested on original order. Performed By: #### L [id number] #### [facility] [[email or web address] LAB ([facility]) [address] [place] [address] URINE CULTURE, ROUTINEon 3 Bacteria identified Cx Nom (U) <10,000 CFU/ML No Significant Growth Normal [facility] Comment on above: Performed By: #### L [id number] #### [facility] [[email or web address] LAB ([facility]) [address] [place] [address] Urinalysis,Microon 3 Bacteria MANY Abnormal NONE [facility] Comment on above: Performed By: #### U WILLY UAX #### [place] [phone] Cable Machine Operator: Paddy Juares MD Epithelial cells LM Ql (Urine sed) 0 TO 2 Normal 0-5 [facility] Comment on above: Performed By: #### U WILLY, UAX #### [address] [address] Cable Machine Operator: Paddy Juares MD Other Observations Utilizing a urinalysis as the only screening method to exclude a potential Abnormal NREQ [facility] Comment on above: Result Comment: urop athogen can be unreliable in many patient populations. Rapid screening tests are less sensitive than culture and if UTI is a clinical possibility, culture should be considered despite a negative urinalysis. Performed By: #### U WILLY, UAX #### [address] [address] Cable Machine Operator: Paddy Juares MD Urine RBC's 0 TO 2 Normal 0-2 [facility] Comment on above: Performed By: #### U WILLY UAX #### [facility] [address] [place], [place] [phone] Cable Machine Operator: Paddy Juares MD Urine WBC's 0 TO 2 Normal 0-5 [facility] Comment on above: Performed By: #### U WILLY, UAX #### [facility] [address] [place], [place] [phone] Cable Machine Operator: Paddy Juares MD BASIC METABOLIC PANELon 05-0 Anion gap [Moles/Vol] 9 mmol/L Normal 7-20 [facility] Comment on above: Performed By: #### L [id number] #### [facility] [[email or web address]] LAB (BEAKER) [address] [place] [address] Calcium [Mass/Vol] 7.5 mg/dL Low 8.6-10.3 [facility] Comment on above: Performed By: #### L [id number] #### [facility] [[email or web address] LAB (BEAKER) [address] [place] [address] Chloride [Moles/Vol] 101 mmol/L Normal 98-107 [facility] Comment on above: Performed By: #### L [id number] #### [facility] [[email or web address] LAB (BEAKER) [address] [place] [address] CO2 [Moles/Vol] 36 mmol/L High 21-31 [facility] Comment on above: Performed By: #### L [id number] #### [facility] [[email or web address]] LAB (BEAKER) [address] [place] [address] Creatinine [Mass/Vol] 0.83 mg/dL Normal 0.60-1.20 [facility] Comment on above: Performed By: #### L [id number] #### [facility] [[email or web address] LAB (BEAKER) [address] [place] [address] GLOMERULAR FILTRATION RATE ML/MIN/1.73 SQ M.PREDICTED 68.6 mL/min/1.73m*2 Normal >60.0 [facility] Comment on above: Result Comment: The [facility]???s estimated glomerular filtration rate (eGFR) will no longer include consideration of race in its calculation. The National Kidney Foundation???s eGFR Task Force developed new recommendations for the estimation of the glomerular filtration rate in the [place] They recommend immediate implementation of the new equation refit without the race variable in all laboratories because the calculation does not include race. In addition to not including race in the calculation and reporting, it included diversity in its development, and has acceptable performance characteristics and potential consequences that do not disproportionately affect any one group of individuals. Performed By: #### L [id number] #### [facility] [[email or web address] LAB ([facility]) [address] [place] [address] Glucose [Mass/Vol] 136 mg/dL High 70-100 [facility] Comment on above: Performed By: #### L [id number] #### [facility] [[email or web address] LAB ([facility]) [address] [place] [address] Potassium [Moles/Vol] 3.3 mmol/L Low 3.5-5.1 [facility] Comment on above: Performed By: #### L [id number] #### [facility] [[email or web address] LAB ([facility]) [address] [place] [address] Sodium [Moles/Vol] 143 mmol/L Normal 136-145 [facility] Comment on above: Performed By: #### L [id number] #### [facility] [[email or web address] LAB ([facility]) [address] [place] [address] Urea nitrogen [Mass/Vol] 17 mg/dL Normal 7-25 [facility] Comment on above: Performed By: #### L [id number] #### [facility] [[email or web address] LAB ([facility]) [address] [place] [address] UREA NITROGEN/CREATININE (MASS RATIO) IN SER/PLAS 20.5 Normal [facility] Comment on above: Performed By: #### L [id number] #### [facility] [[email or web address] LAB ([facility]) [address] [place] [address] CBCon 12-17-2022 Erythrocyte distribution width (RBC) [Ratio] 20.5 % High 11.5-15.0 [facility] Comment on above: Performed By: #### L [id number] #### [facility] [[email or web address] [address] [place] [address] ERYTHROCYTE MEAN CORPUSCULAR HEMOGLOBIN CONCENTRATION (G/DL) BY AUTOMATED 29.4 g/dL Low 32.0-35.0 [facility] Comment on above: Performed By: #### L [id number] #### [facility] [[email or web address] [address] [place] [address] Hematocrit (Bld) [Volume fraction] 43.6 % Normal 36.0-48.0 [facility] Comment on above: Performed By: #### L [id number] #### [facility] [[email or web address] LAB ([facility]) [address] [place] [address] Hemoglobin (Bld) [Mass/Vol] 12.8 g/dL Normal 12.0-15.0 [facility] Comment on above: Performed By: #### L [id number] #### [email or web address] [address] [place] [address] MCH (RBC) [Entitic mass] 28.1 pg Normal 27.0-33.0 [facility] Comment on above: Performed By: #### L [id number] #### [facility] [[email or web address] [address] [place] [address] MCV (RBC) [Entitic vol] 95.6 fL Normal 82.0-98.0 [facility] Comment on above: Performed By: #### L [id number] #### [facility] [[email or web address] [address] [place] [address] PLATELETS (10*3/UL) IN BLOOD AUTOMATED COUNT 210 10*3/uL Normal 150-400 [facility] Comment on above: Performed By: #### L [id number] #### [facility] [[email or web address] LAB (BEAKER) [address] [place] [address] RBC (Bld) [#/Vol] 4.56 10*6/uL Normal 3.80-5.00 [facility] Comment on above: Performed By: #### L [id number] #### [facility] [[email or web address] LAB ([facility]) [address] [place] [address] WBC (Bld) [#/Vol] 6.10 10*3/uL Normal 4.00-10.60 [facility] Comment on above: Performed By: #### L [id number] #### [facility] [[email or web address] LAB ([facility]) [address] [place] [address] DIGOXIN LEVELon 12-17-2022 DIGOXIN (NG/ML) IN SER/PLAS 1.3 ng/mL Normal 0.7-2 [facility] Comment on above: Performed By: #### L [id number] #### [facility] [[email or web address] LAB ([facility]) [address] [place] [address] EKG Rhythm Stripon 3 [facility]SE [facility] Lactate Dehydrogenaseon LDH [Catalytic activity/Vol] 418 U/L High 135-214 [facility] Comment on above: Performed By: #### L D #### [facility] [employer] [address] [place], [place] [phone] Cable Machine Operator: Rogelio Franks MD #### TROPI, BMP, PT, TP #### [facility] [address] [place] [address] Cable Machine Operator: Paddy Juares MD Cholesterol in LDL [Mass/Vol] 418 U/L High 135 - 214 U/L [facility] Interpretation and review of laboratory results Abnormal [facility] [employer] EKG Rhythm Stripon 3 [facility] No Panel Informationon 12-13 Successful ultrasoun d guided thoracentesis. [facility] Nilo Muro MD - 12/13/2022 PROCEDURE: ULTRASOUNDGUIDED RIGHT THORACENTESIS 12/13/2022 HISTORY: ORDERING SYSTEM PROVIDED HISTORY: Right-sided pleural effusion TECHNOLOGIST PROVIDED HISTORY: Right-sided pleural effusion Which side should the procedure be performed?->Right TECHNIQUE: This procedure was performed by Emmett Steele PA-C under indirect supervision of Dr. Rawls. A detailed explanation of the procedure including but not limited to risks and benefits of the procedure were discussed. The posterior chest was prepped and draped using universal protocol and maximum sterile barrier technique. All elements of maximal sterile barrier technique, including cap, mask, sterile gown, sterile gloves, sterile drapes, hand hygiene and 2% chlorhexidine for cutaneous antisepsis were followed. While the patient was seated upright, after localizing, marking and anesthetizing the posterior right lower chest with one percent lidocaine. A 5 [place] [employer] needle was advanced into the pleural effusion under ultrasound guidence. A saved sonographic image demonstrates safe tract access. The catheter was advanced and the needle was removed. The catheter was connected to a Vacutainer bottle and 800 mL of clear yellow fluidwere drained. Postprocedural ultrasound demonstrated no residual fluid. The catheter was removed and the site was dressed appropriately. A sample was sent for laboratory analysis. Estimated blood loss was minimum. The patient tolerated the procedure well and left the department in stable condition. FINDINGS: A total of 800 mL clear yellow fluid was removed. IMPRESSION: Successful ultrasound guided thoracentesis. [employer] Phone: Radiology Study observation (narrative) [employer] Phone: No Panel InformationOrdered By: Nilo Rawls on 12-13-2022 [employer] Phone: Protein, Totalon 12-13-2022 Protein [Mass/Vol] 5.7 g/dL Low 6.4-8.3 [facility] Comment on above: Performed By: #### L D #### [employer] [address] [place] [address] Cable Machine Operator: Rogelio Franks MD #### BENJAMINI, BMP, PT, TP #### [facility] [address] Cable Machine Operator: Paddy Juares MD Interpretation and review of laboratory results Abnormal [facility] Protein [Mass/Vol] 5.7 g/dL Low 6.4 - 8.3 g/dL [facility] Lactate, Sepsison 12-12-2022 Lactic Acid, Sepsis 2.1 mmol/L High 0.5-1.9 [facility] Comment on above: Performed By: #### U MICAO, UAX #### [address] [address] Cable Machine Operator: Paddy Juares MD Interpretation and review of laboratory results Abnormal [facility] Lactic Acid, Sepsis 2.1 mmol/L High 0.5 - 1. 9 mmol/L [facility] Lactic Acid, Sepsis 2.9 mmol/L High 0.5-1.9 [facility] Comment on above: Performed By: #### U MICAO, UAX #### [address] [address] Cable Machine Operator: Paddy Juares MD Interpretation and review of laboratory results Abnormal [facility] Lactic Acid, Sepsis 2.9 mmol/L High 0.5 - 1. 9 mmol/L [facility] Microscopic Urinalysison Bacteria, UA MANY Abnormal None [facility] Epithelial Cells UA TOO NUMEROUS TO COUNT [facility] Interpretation and review of laboratory results Abnormal [facility] Other Observations UA Utilizing a urinalysis as the only screening method to exclude a potential uropathogen can be unreliable in many patient populations. Rapid screening tests are less sensitive than culture and if UTI is a clinical possibility, culture should be considered despite a negative urinalysis. Abnormal NOT REQ. [facility] RBC clumps Auto (Urine sed) [#/Area] 0 TO 2 [facility] WBC, UA 0 TO 2 [facility] UA w/Reflex Cultureon 2022 Bilirubin, SemiQt,Ur Negative Normal NEG [facility] Comment on above: Performed By: #### U AX, UMICAO #### [address] [phone] Cable Machine Operator: Paddy Juares MD Blood, Urine Negative Normal NEG [facility] Comment on above: Performed By: #### U AX, UMICAO #### [place] [address] Cable Machine Operator: Paddy Juares MD Clarity (U) Cloudy Abnormal CLEAR [facility] Comment on above: Performed By: #### U AX, UMICAO #### [place] [address] Cable Machine Operator: Paddy Juares MD Color (U) Yellow Normal YEL [facility] Comment on above: Performed By: #### U AX, UMICAO #### [place] [address] Cable Machine Operator: Paddy Juares MD Glucose Ql (U) Negative Normal NEG [facility] Comment on above: Performed By: #### U AX, UMICAO #### [place] [phone] Cable Machine Operator: Paddy Juares MD Ketones Ql (U) Negative Normal NEG [facility] Comment on above: Performed By: #### U AX, UMICAO #### [address] [phone] Cable Machine Operator: Paddy Juares MD Leukocyte esterase Test strip Ql (U) Negative Normal NEG [facility] Comment on above: Performed By: #### U AX, UMICAO #### [place] [address] Cable Machine Operator: Paddy Juares MD Nitrite,Ur Negative Normal NEG [facility] Comment on above: Performed By: #### U AX, UMICAO #### [place] [address] Cable Machine Operator: Paddy Juares MD PH,Ur 7.0 Normal 5.0-8.0 [facility] Comment on above: Performed By: #### U AX, UMICAO #### [place] [address] Cable Machine Operator: Paddy Juares MD Protein Ql (U) Negative Normal NEG [facility] Comment on above: Performed By: #### U AX, UMICAO #### [place] [address] Cable Machine Operator: Paddy Juares MD Spec. Veblen,Ur 1.015 Normal 1.005-1.030 [facility] Comment on above: Performed By: #### U AX, UMICAO #### [place] [address] Cable Machine Operator: Paddy Juares MD Urobilinogen,Ur Normal Normal NORM [facility] Comment on above: Performed By: #### U AX, UMICAO #### [place] [address] Cable Machine Operator: Paddy Juares MD Urinalysis with Reflex to Cu ltureon 12-12-2022 Bilirubin Urine Negative NEGATIVE [facility] Color, UA Yellow Yellow [facility] Glucose Auto test strip (U) [Mass/Vol] Negative NEGATIVE [facility] Interpretation and review of laboratory results Abnormal [facility] Ketones (U) [Mass/Vol] Negative NEGATIVE [facility] Leukocyte esterase Auto test strip Ql (U) Negative NEGATIVE [facility] Nitrite Auto test strip Ql (U) Negative NEGATIVE [facility] Protein (U) [Mass/Vol] 7.0 mg/dL 5.0 - 8.0 [facility] Protein (U) [Mass/Vol] Negative NEGATIVE [facility] Specific Veblen, UA 1.015 1.005 - 1.030 [facility] Turbidity UA Cloudy Abnormal Clear [facility] Urine Hgb Negative NEGATIVE [facility] Urobilinogen, Urine Normal Normal [facility] Urinalysis,Microon 3 Bacteria MANY Abnormal NONE [facility] Comment on above: Performed By: #### U AXFRANKY #### [place] [address] Cable Machine Operator: Paddy Juares MD Epithelial cells LM Ql (Urine sed) TOO NUMEROUS TO COUNT Normal 0-5 [facility] Comment on above: Performed By: #### U FRANKY DAWKINS #### [address] [address] Cable Machine Operator: Paddy Juares MD Other Observations Utilizing a urinalysis as the only screening method to exclude a potential Abnormal NREQ [facility] Comment on above: Result Comment: urop athogen can be unreliable in many patient populations. Rapid screening tests are less sensitive than culture and if UTI is a clinical possibility, culture should be considered despite a negative urinalysis. Performed By: #### U AXFRANKY #### [address] [address] Cable Machine Operator: Paddy Juares MD Urine RBC's 0 TO 2 Normal 0-2 [facility] Comment on above: Performed By: #### U AX, MARCELO #### [facility] [address] [place] [address] Cable Machine Operator: Paddy Juares MD Urine WBC's 0 TO 2 Normal 0-5 [facility] Comment on above: Performed By: #### U AX, UMICAO #### [address] [address] Cable Machine Operator: Paddy Juares MD XR CHEST PORTABLEon 12-13-19 XR CHEST PORTABLE EXAMINATION: ONE XRAY VIEW OF THE CHEST 12/12/2022 3:06 pm COMPARISON: 12/10/2022 HISTORY: ORDERING SYSTEM PROVIDED HISTORY: Hypotension; r/o post-op PNA TECHNOLOGIST PROVIDED HISTORY: Hypotension; r/o post-op PNA Reason for Exam: Hypotension FINDINGS: Stable cardiomegaly. Right pleural effusion again noted. No pneumothorax. No new airspace disease. No pulmonary vascular congestion. IMPRESSION: Unchanged chest demonstrating cardiomegaly and right pleural effusion Interpreted by: Tim Sánchez MD Signed by: Tim Sánchez MD 12/12/22 Final result Normal [facility] Unchanged chest demonstrating cardiomegaly and right pleural effusion [facility] RIS CONSOLIDATED EXAMINATION: ONE XRAY VIEW OF THE CHEST 12/12/2022 3:06 pm COMPARISON: 12/10/2022 HISTORY: ORDERING SYSTEM PROVIDED HISTORY: Hypotension; r/o post-op PNA TECHNOLOGIST PROVIDED HISTORY: Hypotension; r/o post-op PNA Reason for Exam: Hypotension FINDINGS: Stable cardiomegaly. Right pleural effusion again noted. No pneumothorax. No new airspace disease. No pulmonary vascular congestion. MHPN RIS CONSOLIDATED Tim Sánchez MD - 12/12/2022 EXAMINATION: ONE XRAY VIEW OF THE CHEST 12/12/2022 3:06 pm COMPARISON: 12/10/2022 HISTORY: ORDERING SYSTEM PROVIDED HISTORY: Hypotension; r/o post-op PNA TECHNOLOGIST PROVIDED HISTORY: Hypotension; r/o post-op PNA Reason for Exam: Hypotension FINDINGS: Stable cardiomegaly. Right pleural effusion again noted. No pneumothorax. No new airspace disease. No pulmonary vascular congestion. IMPRESSION: Unchanged chest demonstrating cardiomegaly and right pleural effusion [employer] Phone: Radiology Study observation (narrative) [employer] Phone: XR CHEST PORTABLEOrdered By: Tim Sánchez on 12-12-2022 [employer] Phone: ECHO Complete 2D W Doppler W ColorOrdered By: Tyrese Clemons on 12-11-2022 Left ventricular Ejection fraction 33 [employer] Phone: LVEF MODALITY ECHO [employer] Phone: [employer] Phone: ECHO Complete 2D W Doppler W Coloron 12-11-2022 [facility] Transthoracic Echocardiography Report (TTE) Patient Name MINARCIN Date of Study 12/10/2022 REBEKAH Date of 1935 Gender Female Age 87 year(s) Race Room Number [id number] Height: 64 inch, 162.56 cm Corporate ID [id number] Weight: 116 pounds, 52.6 kg # Patient Acct [id number] BSA: 1.55 m^2 BMI: 19.91 kg/m^2 # MR # [id number] Packing Room Worker Samy Man, [facility] Interpreting Physician Tyrese Clemons Fellow Referring Nurse Practitioner Interpreting Referring Physician Stephen Gamboa Fellow Type of Study TTE procedure:2D Echocardiogram, M-Mode, Doppler, Color Doppler. Procedure Date Date: 12/10/2022 Start: 03:57 PM Study Location: [facility] Technical Quality: Adequate visualization Indications:Congestiv e heart failure. Patient Status: Inpatient Height: 64 inches Weight: 116 pounds BSA: 1.55 m^2 BMI: 19.91 kg/m^2 Rhythm: Atrial fibrillation CONCLUSIONS Summary Normal left ventricle size with reduced function. Garay's biplane estimated EF of 40%. Visually LVEF 30-35%, global hypokinesis. Mild concentric left ventricular hypertrophy. Left atrium is severely dilated. Right atrium is severely dilated . Reduced right ventricle function. Sclerotic tri-leaflet AV. Trivial aortic insufficiency. Posterior mitral annular calcification. Thickened mitral scott leaflets. Severe Eccentric mitral regurgitation, posteriorly directed, with coanda. Normal tricuspid valve structure and function. Moderate tricuspid regurgitation. Estimated right ventricular systolic pressure is 36 mmHg. Dilated IVC at 2.1 with collapse. RAP of 8 mmHg. Signature FINDINGS Left Atrium Left atrium is severely dilated. Left Ventricle Normal left ventricle size with reduced function. Garay's biplane estimated EF of 40%. Visually LVEF 30-35%, global hypokinesis. Mild concentric left ventricular hypertrophy. Right Atrium Right atrium is severely dilated . Right Ventricle Reduced right ventricle function. Mitral Valve Posterior mitral annular calcification. Thickened mitral scott leaflets. Severe Eccentric mitral regurgitation, posteriorly directed, with coanda. Aortic Valve Sclerotic tri-leaflet AV. Trivial aortic insufficiency. Tricuspid Valve Normal tricuspid valve structure and function. Moderate tricuspid regurgitation. Estimated right ventricular systolic pressure is 36 mmHg. Pulmonic Valve The pulmonic valve is normal in structure. Pericardial Effusion No pericardial effusion seen. Miscellaneous Dilated IVC at 2.1 with collapse. RAP of 8 mmHg. M-mode / 2D Measurements & Calculations: LVIDd:3.8 cm(3.7 - 5.6 cm) Diastolic Volume:56.1 ml LVIDs:2.9 cm(2.2 - 4.0 cm) Systolic Volume:33.5 ml IVSd:1.5 cm(0.6 - 1.1 cm) Aortic Root:3.2 cm(2.0 - 3.7 cm) LVPWd:1.3 cm(0.6 - 1.1 cm) LA Dimension: 3 cm(1.9 - 4.0 cm) Fractional Shortenin.68 % LA volume/Index: 68.9 ml /44m^2 Calculated LVEF (%): 40.29 % LVOT:2 cm Mitral: Aortic Peak E-Wave: 0.99 m/s Peak Velocity: 0.92 m/s Peak Gradient: 3.39 mmHg Peak Gradient: 3.88 mmHg Mean Gradient: 2 mmHg Deceleration Time: 187 msec Mean Velocity: 0.60 m/s Tricuspid: Pulmonic: Peak TR Velocity: 2.62 m/s Peak Velocity: 0.47 m/s Peak TR Gradient: 27.4576 mmHg Peak Gradient: 0.86 mmHg Estimated RA Pressure: 8 mmHg Peak E-Wave: 0.70 m/s Peak Gradient: 1.96 mmHg Estimated PASP: 35.46 mmHg MH LVEF Tyrese Clemons, / Result, Unknown Provider - 12/11/2022 [facility] Transthoracic Echocardiography Report (TTE) Patient Name MINARCIN Date of Study 12/10/2022 REBEKAH Date of 1935 Gender Female Age 87 year(s) Race Room Number [id number] Height: 64 inch, 162.56 cm Corporate ID [id number] Weight: 116 pounds, 52.6 kg # Patient Acct [id number] BSA: 1.55 m^2 BMI: 19.91 kg/m^2 # MR # [id number] Packing Room Worker Samy Man RDCS Interpreting Physician Tyrese Clemons Fellow Referring Nurse Practitioner Interpreting Referring Physician Stephen Gamboa Fellow Type of Study TTE procedure:2D Echocardiogram, M-Mode, Doppler, Color Doppler. Procedure Date Date: 12/10/2022 Start: 03:57 PM Study Location: [facility] Technical Quality: Adequate visualization Indications:Congestiv e heart failure. Patient Status: Inpatient Height: 64 inches Weight: 116 pounds BSA: 1.55 m^2 BMI: 19.91 kg/m^2 Rhythm: Atrial fibrillation CONCLUSIONS Summary Normal left ventricle size with reduced function. Garay's biplane estimated EF of 40%. Visually LVEF 30-35%, global hypokinesis. Mild concentric left ventricular hypertrophy. Left atrium is severely dilated. Right atrium is severely dilated . Reduced right ventricle function. Sclerotic tri-leaflet AV. Trivial aortic insufficiency. Posterior mitral annular calcification. Thickened mitral scott leaflets. Severe Eccentric mitral regurgitation, posteriorly directed, with coanda. Normal tricuspid valve structure and function. Moderate tricuspid regurgitation. Estimated right ventricular systolic pressure is 36 mmHg. Dilated IVC at 2.1 with collapse. RAP of 8 mmHg. Signature - - - - FINDINGS Left Atrium Left atrium is severely dilated. Left Ventricle Normal left ventricle size with reduced function. Garay's biplane estimated EF of 40%. Visually LVEF 30-35%, global hypokinesis. Mild concentric left ventricular hypertrophy. Right Atrium Right atrium is severely dilated . Right Ventricle Reduced right ventricle function. Mitral Valve Posterior mitral annular calcification. Thickened mitral scott leaflets. Severe Eccentric mitral regurgitation, posteriorly directed, with coanda. Aortic Valve Sclerotic tri-leaflet AV. Trivial aortic insufficiency. Tricuspid Valve Normal tricuspid valve structure and function. Moderate tricuspid regurgitation. Estimated right ventricular systolic pressure is 36 mmHg. Pulmonic Valve The pulmonic valve is normal in structure. Pericardial Effusion No pericardial effusion seen. Miscellaneous Dilated IVC at 2.1 with collapse. RAP of 8 mmHg. M-mode / 2D Measurements & Calculations: LVIDd:3.8 cm(3.7 - 5.6 cm) Diastolic Volume:56.1 ml LVIDs:2.9 cm(2.2 - 4.0 cm) Systolic Volume:33.5 ml IVSd:1.5 cm(0.6 - 1.1 cm) Aortic Root:3.2 cm(2.0 - 3.7 cm) LVPWd:1.3 cm(0.6 - 1.1 cm) LA Dimension: 3 cm(1.9 - 4.0 cm) Fractional Shortenin.68 % LA volume/Index: 68.9 ml /44m^2 Calculated LVEF (%): 40.29 % LVOT:2 cm Mitral: Aortic Peak E-Wave: 0.99 m/s Peak Velocity: 0.92 m/s Peak Gradient: 3.39 mmHg Peak Gradient: 3.88 mmHg Mean Gradient: 2 mmHg Deceleration Time: 187 msec Mean Velocity: 0.60 m/s Tricuspid: Pulmonic: Peak TR Velocity: 2.62 m/s Peak Velocity: 0.47 m/s Peak TR Gradient: 27.4576 mmHg Peak Gradient: 0.86 mmHg Estimated RA Pressure: 8 mmHg Peak E-Wave: 0.70 m/s Peak Gradient: 1.96 mmHg Estimated PASP: 35.46 mmHg [employer] Phone: EKG 12 Leadon 12-11-2022 Atrial Rate 75 BPM [employer] Phone: Q-T Interval 418 ms [employer] Phone: QRS Duration 124 ms [employer] Phone: QTc Calculation (Bazett) 466 ms [employer] Phone: R [place] 2 degrees [employer] Phone: T [place] -91 degrees [employer] Phone: Ventricular Rate 75 BPM AKI [facility] Phone: Atrial fibrillation Right bundle branch block T wave abnormality, consider inferolateral ischemia Abnormal ECG When compared with ECG of 08-DEC-2022 21:14, Vent. rate has decreased BY 54 BPM Right bundle branch block is now Present [facility] Result, Unknown Provider - 12/11/2022 Atrial fibrillation Right bundle branch block T wave abnormality, consider inferolateral ischemia Abnormal ECG When compared with ECG of 08-DEC-2022 21:14, Vent. rate has decreased BY 54 BPM Right bundle branch block is now Present [employer] Phone: [employer] Phone: EKG Rhythm Stripon [employer] FLUORO FOR SURGICAL PROCEDUR ESon 12-11-2022 FLUORO FOR SURGICAL PROCEDURES Radiology exam is complete. No Radiologist dictation. Please follow up with ordering provider. Final result Normal [facility] Radiology exam is complete. No Radiologist dictation. Please follow up with ordering provider. [facility] RIS CONSOLIDATED Basic Metabolic Panelon 05-0 Anion gap [Moles/Vol] 8 mmol/L Low 9 - 17 mmol/L [facility] Calcium [Mass/Vol] 8.4 mg/dL Low 8.6 - 10. 4 mg/dL [facility] Chloride [Moles/Vol] 104 mmol/L 98 - 10 7 mmol/L [facility] CO2 [Moles/Vol] 31 mmol/L 20 - 31 mmol/L [facility] Creatinine [Mass/Vol] 0.99 mg/dL High 0.50 - 0.90 mg/dL [facility] GFR/1.73 sq M.predicted MDRD (S/P/Bld) [Vol rate/Area] 56 mL/min/{1.73_m2} Low - PINF [facility] Comment on above: These results are not intended for use in patients <18 years of age. eGFR results are calculated without a race factor using the 2020 CKD-EPI equation. Careful clinical correlation is recommended, particularly when comparing to results calculated using previous equations. The CKD-EPI equation is less accurate in patients with extremes of muscle mass, extra-renal metabolism of creatine, excessive creatine ingestion, or following therapy that affects renal tubular secretion. Glucose [Mass/Vol] 121 mg/dL High 70 - 99 mg/dL [facility] Interpretation and review of laboratory results Abnormal [facility] Potassium [Moles/Vol] 3.8 mmol/L 3.7 - 5.3 mmol/L [facility] Sodium [Moles/Vol] 143 mmol/L 135 - 144 mmol/L [facility] Urea nitrogen [Mass/Vol] 24 mg/dL High 8 - 23 mg/dL [facility] Basic Metabolic Profon 12-10 Anion gap [Moles/Vol] 8 mmol/L Low 9-17 [facility] Comment on above: Performed By: #### L D #### [facility] [address] [id number] Cable Machine Operator: Rogelio Franks MD #### TROPI, BMP, PT, TP #### [address] [address] Cable Machine Operator: Paddy Juares MD Calcium [Mass/Vol] 8.4 mg/dL Low 8.6-10.4 [facility] Comment on above: Performed By: #### L D #### [address] [id number] Cable Machine Operator: Rogelio Franks MD #### TROPRobyn, BMP, PT, TP #### [address] [address] Cable Machine Operator: Paddy Juares MD Chloride [Moles/Vol] 104 mmol/L Normal 98-107 [facility] Comment on above: Performed By: #### L D #### [address] [id number] Cable Machine Operator: Rogelio Franks MD #### TROPRobyn, BMP, PT, TP #### [address] [address] Cable Machine Operator: Paddy Juares MD CO2 [Moles/Vol] 31 mmol/L Normal 20-31 [facility] Comment on above: Performed By: #### L D #### [address] [id number] Cable Machine Operator: Rogelio Franks MD #### TROPI, BMP, PT, TP #### [address] [address] Cable Machine Operator: Paddy Juares MD Creatinine [Mass/Vol] 0.99 mg/dL High 0.50-0.90 [facility] Comment on above: Performed By: #### L D #### [employer] [address] [place] [address] [id number] Cable Machine Operator: Rogelio Franks MD #### EDGAR MENDENHALL PT, TP #### [address] [address] Cable Machine Operator: Paddy Juares MD GFR/1.73 sq M.predicted among non-blacks MDRD (S/P/Bld) [Vol rate/Area] 56 mL/min/{1.73_m2} Low >60 [facility] Comment on above: Result Comment: These results are not intended for use in patients <18 years of age. eGFR results are calculated without a race factor using the 2020 CKD-EPI equation. Careful clinical correlation is recommended, particularly when comparing to results calculated using previous equations. The CKD-EPI equation is less accurate in patients with extremes of muscle mass, extra-renal metabolism of creatine, excessive creatine ingestion, or following therapy that affects renal tubular secretion. Performed By: #### L D #### [address] [id number] Cable Machine Operator: Rogelio Franks MD #### EDGAR MENDENHALL PT, TP #### [address] [address] Cable Machine Operator: Paddy Juares MD Glucose [Mass/Vol] 121 mg/dL High 70-99 [facility] Comment on above: Performed By: #### L D #### [employer] [address] [place] [address] [id number] Cable Machine Operator: Rogelio Franks MD #### EDGAR MENDENHALL PT, TP #### [id number] [place] [address] Cable Machine Operator: Paddy Juares MD Potassium [Moles/Vol] 3.8 mmol/L Normal 3.7-5.3 [facility] Comment on above: Performed By: #### L D #### [facility] [employer] [address] [place] [address] [id number] Cable Machine Operator: Rogelio Franks MD #### TROPI, BMP, PT, TP #### [address] [id number] Cable Machine Operator: Paddy Juares MD Sodium [Moles/Vol] 143 mmol/L Normal 135-144 [facility] Comment on above: Performed By: #### L D #### [facility] [employer] [address] [place] [address] [id number] Cable Machine Operator: Rogelio Franks MD #### TROPI, BMP, PT, TP #### [address] [address] Cable Machine Operator: Paddy Juares MD Urea nitrogen [Mass/Vol] 24 mg/dL High 8- [facility] Comment on above: Performed By: #### L D #### [address] [id number] Cable Machine Operator: Rogelio Franks MD #### TROPI, BMP, PT, TP #### [address] [address] Cable Machine Operator: Paddy Juares MD EKG 12 Leadon 12-10-2022 Atrial Rate 131 BPM [employer] Phone: Q-T Interval 306 ms [employer] Phone: QRS Duration 114 ms [employer] Phone: QTc Calculation (Bazett) 448 ms [employer] Phone: R [place] 21 degrees [employer] Phone: T [place] -66 degrees [employer] Phone: Ventricular Rate 129 BPM AKI PEARCE [employer] Work Phone: Atrial fibrillation with rapid ventricular response ST & T wave abnormality, consider anterior ischemia Abnormal ECG No previous ECGs available [facility] Result, Unknown Provider - 12/10/2022 Atrial fibrillation with rapid ventricular response ST & T wave abnormality, consider anterior ischemia Abnormal ECG No previous ECGs available [facility] [employer] Work Phone: AKI [employer] Work Phone: EKG Rhythm Stripon 3 [employer] [facility] [employer] MRI LUMBAR SPINE WO CONTRAST on 12-10-2022 MRI LUMBAR SPINE WO CONTRAST EXAMINATION: MRI OF THE LUMBAR SPINE WITHOUT CONTRAST, 12/10/2022 10:46 am TECHNIQUE: Multiplanar multisequence MRI of the lumbar spine was performed without the administration of intravenous contrast. COMPARISON: CT lumbar spine performed 12/08/2022. HISTORY: ORDERING SYSTEM PROVIDED HISTORY: lumbar compression fracture TECHNOLOGIST PROVIDED HISTORY: Please prioritize sagittal cuts > axial and coronals if too painful to lie still entire time, as my main goal is to assess for acute VCF lumbar compression fracture Reason for Exam: lumbar compression fracture, patient was picking up something heavy now has a lot of pain in the back FINDINGS: BONES/ALIGNMENT: There is mild loss of vertebral body height with superior endplate edema versus inflammation at the L3 level. There is remote compression deformity at L1 and L2. There is multilevel degenerative disc disease with loss of disc signal. There is disc space narrowing in the mid and lower lumbar spine. There is no spondylolisthesis. SPINAL CORD: The conus terminates normally. SOFT TISSUES: No paraspinal mass identified. L1-L2: There is a circumferential disc bulge with facet and ligamentous hypertrophy. There is no canal stenosis. There is moderate bilateral foraminal narrowing. L2-L3: There is a circumferential disc bulge with facet and ligamentous hypertrophy. There is no canal stenosis. There is mild left and moderate right foraminal narrowing. L3-L4: There is a circumferential disc bulge with facet and ligamentous hypertrophy. There is no canal stenosis. There is lateral recess narrowing. There is mild left and moderate to severe right foraminal narrowing. L4-L5: There is a circumferential disc bulge with facet and ligamentous hypertrophy. There is no canal stenosis. There is narrowing of the lateral recesses. There is moderate left and severe right foraminal narrowing. L5-S1: There is a circumferential disc bulge with facet and ligamentous hypertrophy. There is no canal stenosis. There is severe bilateral foraminal narrowing. IMPRESSION: Mild loss of vertebral body height and superior endplate edema versus inflammation at the L3 level that may represent an acute/subacute compression deformity. Remote compression deformity at L1 and L2. Multilevel degenerative change with foraminal narrowing as described above. Interpreted by: Thiago Rosenthal MD Signed by: Thiago Rosenthal MD 12/10/22 Final result Normal [facility] Mild loss of vertebral body height and superior endplate edema versus inflammation at the L3 level that may represent an acute/subacute compression deformity. Remote compression deformity at L1 and L2. Multilevel degenerative change with foraminal narrowing as described above. [facility] RIS CONSOLIDATED EXAMINATION: MRI OF THE LUMBAR SPINE WITHOUT CONTRAST, 12/10/2022 10:46 am TECHNIQUE: Multiplanar multisequence MRI of the lumbar spine was performed without the administration of intravenous contrast. COMPARISON: CT lumbar spine performed 12/08/2022. HISTORY: ORDERING SYSTEM PROVIDED HISTORY: lumbar compression fracture TECHNOLOGIST PROVIDED HISTORY: Please prioritize sagittal cuts > axial and coronals if too painful to lie still entire time, as my main goal is to assess for acute VCF lumbar compression fracture Reason for Exam: lumbar compression fracture, patient was picking up something heavy now has a lot of pain in the back FINDINGS: BONES/ALIGNMENT: There is mild loss of vertebral body height with superior endplate edema versus inflammation at the L3 level. There is remote compression deformity at L1 and L2. There is multilevel degenerative disc disease with loss of disc signal. There is disc space narrowing in the mid and lower lumbar spine. There is no spondylolisthesis. SPINAL CORD: The conus terminates normally. SOFT TISSUES: No paraspinal mass identified. L1-L2: There is a circumferential disc bulge with facet and ligamentous hypertrophy. There is no canal stenosis. There is moderate bilateral foraminal narrowing. L2-L3: There is a circumferential disc bulge with facet and ligamentous hypertrophy. There is no canal stenosis. There is mild left and moderate right foraminal narrowing. L3-L4: There is a circumferential disc bulge with facet and ligamentous hypertrophy. There is no canal stenosis. There is lateral recess narrowing. There is mild left and moderate to severe right foraminal narrowing. L4-L5: There is a circumferential disc bulge with facet and ligamentous hypertrophy. There is no canal stenosis. There is narrowing of the lateral recesses. There is moderate left and severe right foraminal narrowing. L5-S1: There is a circumferential disc bulge with facet and ligamentous hypertrophy. There is no canal stenosis. There is severe bilateral foraminal narrowing. [facility] RIS CONSOLIDATED Thiago Rosenthal MD - 12/10/2022 EXAMINATION: MRI OF THE LUMBAR SPINE WITHOUT CONTRAST, 12/10/2022 10:46 am TECHNIQUE: Multiplanar multisequence MRI of the lumbar spine was performed without the administration of intravenous contrast. COMPARISON: CT lumbar spine performed 12/08/2022. HISTORY: ORDERING SYSTEM PROVIDED HISTORY: lumbar compression fracture TECHNOLOGIST PROVIDED HISTORY: Please prioritize sagittal cuts > axial and coronals if too painful to lie still entire time, as my main goal is to assess for acute VCF lumbar compression fracture Reason for Exam: lumbar compression fracture, patient was picking up something heavy now has a lot of pain in the back FINDINGS: BONES/ALIGNMENT: There is mild loss of vertebral body height with superior endplate edema versus inflammation at the L3 level. There is remote compression deformity at L1 and L2. There is multilevel degenerative disc disease with loss of disc signal. There is disc space narrowing in the mid and lower lumbar spine. There is no spondylolisthesis. SPINAL CORD: The conus terminates normally. SOFT TISSUES: No paraspinal mass identified. L1-L2: There is a circumferential disc bulge with facet and ligamentous hypertrophy. There is no canal stenosis. There is moderate bilateral foraminal narrowing. L2-L3: There is a circumferential disc bulge with facet and ligamentous hypertrophy. There is no canal stenosis. There is mild left and moderate right foraminal narrowing. L3-L4: There is a circumferential disc bulge with facet and ligamentous hypertrophy. There is no canal stenosis. There is lateral recess narrowing. There is mild left and moderate to severe right foraminal narrowing. L4-L5: There is a circumferential disc bulge with facet and ligamentous hypertrophy. There is no canal stenosis. There is narrowing of the lateral recesses. There is moderate left and severe right foraminal narrowing. L5-S1: There is a circumferential disc bulge with facet and ligamentous hypertrophy. There is no canal stenosis. There is severe bilateral foraminal narrowing. IMPRESSION: Mild loss of vertebral body height and superior endplate edema versus inflammation at the L3 level that may represent an acute/subacute compression deformity. Remote compression deformity at L1 and L2. Multilevel degenerative change with foraminal narrowing as described above. [employer] Phone: [employer] Phone: Radiology Study observation (narrative) [employer] Phone: MRI THORACIC SPINE WO CONTRA STon 12-10-2022 MRI THORACIC SPINE WO CONTRAST EXAMINATION: MRI OF THE THORACIC SPINE WITHOUT CONTRAST 12/10/2022 10:45 am TECHNIQUE: Multiplanar multisequence MRI of the thoracic spine was performed without the administration of intravenous contrast. COMPARISON: None. HISTORY: ORDERING SYSTEM PROVIDED HISTORY: multiple compression fractures on CT, mid to upper back and rib pain TECHNOLOGIST PROVIDED HISTORY: Please prioritize sagittal cuts > axial and coronals if too painful to lie flat entire time, as my main goal is to assess for acute VCF multiple compression fractures on CT, mid to upper back and rib pain Reason for Exam: multiple compression fractures on CT, mid to upper back and rib pain FINDINGS: BONES/ALIGNMENT: There is scoliotic curvature of the dorsal spine with dextrocurvature in the thoracic region and compensatory levocurvature in the lumbar region. There is remote compression deformity at T4, T6, T7, T8, T10, T11, L1, and L2. There is a prominent inferior endplate Schmorl's node at T11 with adjacent edema or inflammation. There is no spondylolisthesis. SPINAL CORD: No abnormal cord signal is seen. SOFT TISSUES: The posterior paraspinal soft tissues are unremarkable. The visualized abdominal structures are unremarkable. There is a large right-sided pleural effusion. There is trace left-sided effusion. DEGENERATIVE CHANGES: There is multilevel degenerative change with loss of disc signal. There is multilevel degenerative facet hypertrophy. There is no canal stenosis or significant foraminal narrowing. IMPRESSION: Remote compression deformity at T4, T6, T7, T8, T10, T11, L1, and L2. Prominent inferior endplate Schmorl's node at T11 with adjacent edema or inflammation. Multilevel degenerative change without significant canal stenosis or foraminal narrowing. Large right-sided pleural effusion and trace left-sided pleural effusion. Interpreted by: Thiago Rosenthal MD Signed by: Thiago Rosenthal MD 12/10/22 Final result Normal [facility] Remote compression deformity at T4, T6, T7, T8, T10, T11, L1, and L2. Prominent inferior endplate Schmorl's node at T11 with adjacent edema or inflammation. Multilevel degenerative change without significant canal stenosis or foraminal narrowing. Large right-sided pleural effusion and trace left-sided pleural effusion. [facility] EXAMINATION: MRI OF THE THORACIC SPINE WITHOUT CONTRAST 12/10/2022 10:45 am TECHNIQUE: Multiplanar multisequence MRI of the thoracic spine was performed without the administration of intravenous contrast. COMPARISON: None. HISTORY: ORDERING SYSTEM PROVIDED HISTORY: multiple compression fractures on CT, mid to upper back and rib pain TECHNOLOGIST PROVIDED HISTORY: Please prioritize sagittal cuts > axial and coronals if too painful to lie flat entire time, as my main goal is to assess for acute VCF multiple compression fractures on CT, mid to upper back and rib pain Reason for Exam: multiple compression fractures on CT, mid to upper back and rib pain FINDINGS: BONES/ALIGNMENT: There is scoliotic curvature of the dorsal spine with dextrocurvature in the thoracic region and compensatory levocurvature in the lumbar region. There is remote compression deformity at T4, T6, T7, T8, T10, T11, L1, and L2. There is a prominent inferior endplate Schmorl's node at T11 with adjacent edema or inflammation. There is no spondylolisthesis. SPINAL CORD: No abnormal cord signal is seen. SOFT TISSUES: The posterior paraspinal soft tissues are unremarkable. The visualized abdominal structures are unremarkable. There is a large right-sided pleural effusion. There is trace left-sided effusion. DEGENERATIVE CHANGES: There is multilevel degenerative change with loss of disc signal. There is multilevel degenerative facet hypertrophy. There is no canal stenosis or significant foraminal narrowing. [facility] Thiago Rosenthal MD - 12/10/2022 EXAMINATION: MRI OF THE THORACIC SPINE WITHOUT CONTRAST 12/10/2022 10:45 am TECHNIQUE: Multiplanar multisequence MRI of the thoracic spine was performed without the administration of intravenous contrast. COMPARISON: None. HISTORY: ORDERING SYSTEM PROVIDED HISTORY: multiple compression fractures on CT, mid to upper back and rib pain TECHNOLOGIST PROVIDED HISTORY: Please prioritize sagittal cuts > axial and coronals if too painful to lie flat entire time, as my main goal is to assess for acute VCF multiple compression fractures on CT, mid to upper back and rib pain Reason for Exam: multiple compression fractures on CT, mid to upper back and rib pain FINDINGS: BONES/ALIGNMENT: There is scoliotic curvature of the dorsal spine with dextrocurvature in the thoracic region and compensatory levocurvature in the lumbar region. There is remote compression deformity at T4, T6, T7, T8, T10, T11, L1, and L2. There is a prominent inferior endplate Schmorl's node at T11 with adjacent edema or inflammation. There is no spondylolisthesis. SPINAL CORD: No abnormal cord signal is seen. SOFT TISSUES: The posterior paraspinal soft tissues are unremarkable. The visualized abdominal structures are unremarkable. There is a large right-sided pleural effusion. There is trace left-sided effusion. DEGENERATIVE CHANGES: There is multilevel degenerative change with loss of disc signal. There is multilevel degenerative facet hypertrophy. There is no canal stenosis or significant foraminal narrowing. IMPRESSION: Remote compression deformity at T4, T6, T7, T8, T10, T11, L1, and L2. Prominent inferior endplate Schmorl's node at T11 with adjacent edema or inflammation. Multilevel degenerative change without significant canal stenosis or foraminal narrowing. Large right-sided pleural effusion and trace left-sided pleural effusion. [employer] Phone: Radiology Study observation (narrative) [employer] Phone: MRI THORACIC SPINE WO CONTRA STOrdered By: Thiago Rosenthal on 12-10-2022 [employer] Phone: PTon 12-10-2022 INR Coag (PPP) [Relative time] 1.2 {INR} Normal [facility] Comment on above: Result Comment: Therapeutic Range: Moderate Anticoagulant Intensity: INR = 2.0-3.0 High Anticoagulant Intensity: INR = 2.5-3.5 Performed By: #### L D #### [address] [id number] [employer] Machine Operator: Rogelio Franks MD #### TROPI, BMP, PT, TP #### [address] [address] [employer] Machine Operator: Paddy Juares MD PT Coag (PPP) [Time] 12.5 s Normal 9.4-12.6 [facility] Comment on above: Performed By: #### L D #### [place] [id number] [employer] Machine Operator: Rogelio Franks MD #### TROPI, BMP, PT, TP #### [address] [address] [employer] Machine Operator: Paddy Juares MD Protime-INRon 1 INR Coag (PPP) [Relative time] 1.2 {INR} [facility] Comment on above: Therapeutic Range: Moderate Anticoagulant Intensity: INR = 2.0-3.0 High Anticoagulant Intensity: INR = 2.5-3.5 PT Coag (PPP) [Time] 12.5 s [facility] Troponinon 12-10-2022 Troponin, High Sens 35 ng/L High 0-14 [facility] Comment on above: Result Comment: High Sensitivity Troponin values cannot be compared with other Troponin methodologies. Performed By: #### L D #### [place] [id number] [employer] Machine Operator: Rogelio Franks MD #### TROPI, BMP, PT, TP #### [address] [address] Cable Machine Operator: Paddy Juares MD Interpretation and review of laboratory results Abnormal [facility] Troponin I.cardiac DL <= 0.01 ng/mL [Mass/Vol] 35 ng/L High 0 - 14 ng/L [facility] Comment on above: High Sensitivity Tro ponin values cannot be compared with other Troponin methodologies. [facility] XR CHEST PORTABLEon 12-11-19 XR CHEST PORTABLE EXAMINATION: ONE XRAY VIEW OF THE CHEST 12/10/2022 2:19 pm COMPARISON: CT scan of the lumbar spine from 12/08/2022 HISTORY: ORDERING SYSTEM PROVIDED HISTORY: Rt pleural effusion TECHNOLOGIST PROVIDED HISTORY: Rt pleural effusion Reason for Exam: Right pleural effusion FINDINGS: Overlying ECG monitor leads and gown snaps. Mod cardiomegaly. Probable left ventricular configuration. Mediastinal structures midline; heavy calcification thoracic aorta, especially knob. Opacity right mid-lower lung, corresponding to pleural effusion noted on recent CT, with associated compressive atelectasis and likely extending into the major fissure. Probable atelectasis medial left base. Underlying infiltrate a consideration. Cephalization of blood flow but no definite Yasmeen lines. For convex-left curvature thoracic spine and some DJD. IMPRESSION: Right pleural effusion with associated compressive atelectasis. Bibasilar opacities, also likely atelectatic. Infiltrate a consideration. Cardiomegaly with venous hypertension but no radiographic CHF. Interpreted by: Deuce Dubois MD Signed by: Deuce Dubois MD 12/10/22 Final result Normal [facility] Right pleural effusion with associated compressive atelectasis. Bibasilar opacities, also likely atelectatic. Infiltrate a consideration. Cardiomegaly with venous hypertension but no radiographic CHF. [facility] EXAMINATION: ONE XRAY VIEW OF THE CHEST 12/10/2022 2:19 pm COMPARISON: CT scan of the lumbar spine from 12/08/2022 HISTORY: ORDERING SYSTEM PROVIDED HISTORY: Rt pleural effusion TECHNOLOGIST PROVIDED HISTORY: Rt pleural effusion Reason for Exam: Right pleural effusion FINDINGS: Overlying ECG monitor leads and gown snaps. Mod cardiomegaly. Probable left ventricular configuration. Mediastinal structures midline; heavy calcification thoracic aorta, especially knob. Opacity right mid-lower lung, corresponding to pleural effusion noted on recent CT, with associated compressive atelectasis and likely extending into the major fissure. Probable atelectasis medial left base. Underlying infiltrate a consideration. Cephalization of blood flow but no definite Yasmeen lines. For convex-left curvature thoracic spine and some DJD. [facility] R[facility] Deuce Celeste MD - 12/10/2022 EXAMINATION: ONE XRAY VIEW OF THE CHEST 12/10/2022 2:19 pm COMPARISON: CT scan of the lumbar spine from 12/08/2022 HISTORY: ORDERING SYSTEM PROVIDED HISTORY: Rt pleural effusion TECHNOLOGIST PROVIDED HISTORY: Rt pleural effusion Reason for Exam: Right pleural effusion FINDINGS: Overlying ECG monitor leads and gown snaps. Mod cardiomegaly. Probable left ventricular configuration. Mediastinal structures midline; heavy calcification thoracic aorta, especially knob. Opacity right mid-lower lung, corresponding to pleural effusion noted on recent CT, with associated compressive atelectasis and likely extending into the major fissure. Probable atelectasis medial left base. Underlying infiltrate a consideration. Cephalization of blood flow but no definite Yasmeen lines. For convex-left curvature thoracic spine and some DJD. IMPRESSION: Right pleural effusion with associated compressive atelectasis. Bibasilar opacities, also likely atelectatic. Infiltrate a consideration. Cardiomegaly with venous hypertension but no radiographic CHF. [employer] Phone: Radiology Study observation (narrative) [employer] Phone: XR CHEST PORTABLEOrdered By: Deuce Dubois on 12-10-2022 [employer] Phone: CT LUMBAR SPINE WO CONTRASTo n 12-09-2022 CT LUMBAR SPINE WO CONTRAST EXAMINATION: CT OF THE LUMBAR SPINE WITHOUT CONTRAST 12/08/2022 11:10 pm TECHNIQUE: CT of the lumbar spine was performed without the administration of intravenous contrast. Multiplanar reformatted images are provided for review. Adjustment of mA and/or kV according to patient size was utilized. Automated exposure control, iterative reconstruction, and/or weight based adjustment of the mA/kV was utilized to reduce the radiation dose to as low as reasonably achievable. COMPARISON: Lumbar spine radiograph 12/08/2022 HISTORY: ORDERING SYSTEM PROVIDED HISTORY: trauma TECHNOLOGIST PROVIDED HISTORY: trauma Decision Support Exception - unselect if not a suspected or confirmed emergency medical condition->Emergency Medical Condition ([place]) Reason for Exam: lower back pain, fall FINDINGS: BONES/ALIGNMENT: Severe diffuse bony demineralization. Fractures of the T11 inferior endplate, L3 superior endplate, and L4 superior endplate with associated sclerosis and new bone formation, appearing older at T11 than at L3 or L4. Chronic appearing fractures involving the L1 and L2 superior endplates, likely newer at L2 given some persistent sclerosis. Partial straightening of lumbar lordosis. No spondylolisthesis. Moderate levoscoliosis. DEGENERATIVE CHANGES: Moderate to severe degenerative disc disease. Mild to severe facet arthropathy. SOFT TISSUES: Normal appearance of the paravertebral soft tissues. Moderate to large right and trace left pleural effusions. Passive atelectasis more prominent in the right lower lobe than in the left lower lobe. Wedge-shaped opacity in the left lower lobe due to subsegmental atelectasis or scarring. Suspected cardiomegaly. At least trace pericardial effusion. Potential for at least trace free intraperitoneal fluid. At least mild subcutaneous edema. IMPRESSION: 1. Subacute appearing fractures involving the T11 inferior endplate and the superior endplates of L3 and L4. Consider MRI if needed for confirmation. 2. Chronic appearing fractures involving the superior endplates of L1 and L2, likely newer at L2. 3. Bony demineralization consistent with osteoporosis given the above findings. 4. Moderate to severe lumbar spine degenerative changes associated with moderate levoscoliosis. 5. Findings suggestive of volume overload include moderate to large right pleural effusion, trace left pleural effusion, at least trace pericardial effusion, potential for at least trace ascites, and at least mild anasarca. Interpreted by: Tim Bishop MD Signed by: Tim Bishop MD 12/09/22 Final result Normal [facility] 1. Subacute appearin g fractures involving the T11 inferior endplate and the superior endplates of L3 and L4. Consider MRI if needed for confirmation. 2. Chronic appearing fractures involving the superior endplates of L1 and L2, likely newer at L2. 3. Bony demineralization consistent with osteoporosis given the above findings. 4. Moderate to severe lumbar spine degenerative changes associated with moderate levoscoliosis. 5. Findings suggestive of volume overload include moderate to large right pleural effusion, trace left pleural effusion, at least trace pericardial effusion, potential for at least trace ascites, and at least mild anasarca. [facility] EXAMINATION: CT OF THE LUMBAR SPINE WITHOUT CONTRAST 12/08/2022 11:10 pm TECHNIQUE: CT of the lumbar spine was performed without the administration of intravenous contrast. Multiplanar reformatted images are provided for review. Adjustment of mA and/or kV according to patient size was utilized. Automated exposure control, iterative reconstruction, and/or weight based adjustment of the mA/kV was utilized to reduce the radiation dose to as low as reasonably achievable. COMPARISON: Lumbar spine radiograph 12/08/2022 HISTORY: ORDERING SYSTEM PROVIDED HISTORY: trauma TECHNOLOGIST PROVIDED HISTORY: trauma Decision Support Exception - unselect if not a suspected or confirmed emergency medical condition->Emergency Medical Condition ([place]) Reason for Exam: lower back pain, fall FINDINGS: BONES/ALIGNMENT: Severe diffuse bony demineralization. Fractures of the T11 inferior endplate, L3 superior endplate, and L4 superior endplate with associated sclerosis and new bone formation, appearing older at T11 than at L3 or L4. Chronic appearing fractures involving the L1 and L2 superior endplates, likely newer at L2 given some persistent sclerosis. Partial straightening of lumbar lordosis. No spondylolisthesis. Moderate levoscoliosis. DEGENERATIVE CHANGES: Moderate to severe degenerative disc disease. Mild to severe facet arthropathy. SOFT TISSUES: Normal appearance of the paravertebral soft tissues. Moderate to large right and trace left pleural effusions. Passive atelectasis more prominent in the right lower lobe than in the left lower lobe. Wedge-shaped opacity in the left lower lobe due to subsegmental atelectasis or scarring. Suspected cardiomegaly. At least trace pericardial effusion. Potential for at least trace free intraperitoneal fluid. At least mild subcutaneous edema. [facility] Tim Bishop MD - 12/09/2022 EXAMINATION: CT OF THE LUMBAR SPINE WITHOUT CONTRAST 12/08/2022 11:10 pm TECHNIQUE: CT of the lumbar spine was performed without the administration of intravenous contrast. Multiplanar reformatted images are provided for review. Adjustment of mA and/or kV according to patient size was utilized. Automated exposure control, iterative reconstruction, and/or weight based adjustment of the mA/kV was utilized to reduce the radiation dose to as low as reasonably achievable. COMPARISON: Lumbar spine radiograph 12/08/2022 HISTORY: ORDERING SYSTEM PROVIDED HISTORY: trauma TECHNOLOGIST PROVIDED HISTORY: trauma Decision Support Exception - unselect if not a suspected or confirmed emergency medical condition->Emergency Medical Condition ([place]) Reason for Exam: lower back pain, fall FINDINGS: BONES/ALIGNMENT: Severe diffuse bony demineralization. Fractures of the T11 inferior endplate, L3 superior endplate, and L4 superior endplate with associated sclerosis and new bone formation, appearing older at T11 than at L3 or L4. Chronic appearing fractures involving the L1 and L2 superior endplates, likely newer at L2 given some persistent sclerosis. Partial straightening of lumbar lordosis. No spondylolisthesis. Moderate levoscoliosis. DEGENERATIVE CHANGES: Moderate to severe degenerative disc disease. Mild to severe facet arthropathy. SOFT TISSUES: Normal appearance of the paravertebral soft tissues. Moderate to large right and trace left pleural effusions. Passive atelectasis more prominent in the right lower lobe than in the left lower lobe. Wedge-shaped opacity in the left lower lobe due to subsegmental atelectasis or scarring. Suspected cardiomegaly. At least trace pericardial effusion. Potential for at least trace free intraperitoneal fluid. At least mild subcutaneous edema. IMPRESSION: 1. Subacute appearing fractures involving the T11 inferior endplate and the superior endplates of L3 and L4. Consider MRI if needed for confirmation. 2. Chronic appearing fractures involving the superior endplates of L1 and L2, likely newer at L2. 3. Bony demineralization consistent with osteoporosis given the above findings. 4. Moderate to severe lumbar spine degenerative changes associated with moderate levoscoliosis. 5. Findings suggestive of volume overload include moderate to large right pleural effusion, trace left pleural effusion, at least trace pericardial effusion, potential for at least trace ascites, and at least mild anasarca. [employer] Phone: [employer] Phone: XR LUMBAR SPINE (2-3 VIEWS)o n 12-09-2022 XR LUMBAR SPINE (2-3 VIEWS) EXAMINATION: 3 XRAY VIEWS OF THE LUMBAR SPINE 12/08/2022 10:03 pm COMPARISON: None HISTORY: ORDERING SYSTEM PROVIDED HISTORY: fall, rule out fracture TECHNOLOGIST PROVIDED HISTORY: fall, rule out fracture Reason for Exam: fall, rule out fracture FINDINGS: Severe diffuse bony demineralization. Age-indeterminate deformities of the L1 and L2 superior endplates with resultant mild and moderate height loss, respectively. Additional height loss involving the T10 and T11 vertebral bodies with more chronic appearance. Straightening of lumbar lordosis. No obvious spondylolisthesis. Moderate levoscoliosis. Mild to moderate degenerative disc disease. Mild to severe facet arthropathy. IMPRESSION: 1. Age-indeterminate compression fractures of the L1 and L2 superior endplates. Compression deformities at T10 and T11 are favored to be chronic. Consider further seen with MRI or CT. 2. Severe bony demineralization partially limits evaluation for fractures. 3. Moderate lumbar spine degenerative changes associated with moderate levoscoliosis. Interpreted by: Tim Bishop MD Signed by: Tim Bishop MD 12/08/22 Final result Normal [facility] CT LUMBAR SPINE WO CONTRASTo n 12-08-2022 Radiology Study observation (narrative) [facility] [employer] Work Phone: XR LUMBAR SPINE (2-3 VIEWS)o n 12-08-2022 1. Age-indeterminate compression fractures of the L1 and L2 superior endplates. Compression deformities at T10 and T11 are favored to be chronic. Consider further seen with MRI or CT. 2. Severe bony demineralization partially limits evaluation for fractures. 3. Moderate lumbar spine degenerative changes associated with moderate levoscoliosis. [facility] EXAMINATION: 3 XRAY VIEWS OF THE LUMBAR SPINE 12/08/2022 10:03 pm COMPARISON: None HISTORY: ORDERING SYSTEM PROVIDED HISTORY: fall, rule out fracture TECHNOLOGIST PROVIDED HISTORY: fall, rule out fracture Reason for Exam: fall, rule out fracture FINDINGS: Severe diffuse bony demineralization. Age-indeterminate deformities of the L1 and L2 superior endplates with resultant mild and moderate height loss, respectively. Additional height loss involving the T10 and T11 vertebral bodies with more chronic appearance. Straightening of lumbar lordosis. No obvious spondylolisthesis. Moderate levoscoliosis. Mild to moderate degenerative disc disease. Mild to severe facet arthropathy. [facility] Tim Bishop MD - 12/08/2022 EXAMINATION: 3 XRAY VIEWS OF THE LUMBAR SPINE 12/08/2022 10:03 pm COMPARISON: None HISTORY: ORDERING SYSTEM PROVIDED HISTORY: fall, rule out fracture TECHNOLOGIST PROVIDED HISTORY: fall, rule out fracture Reason for Exam: fall, rule out fracture FINDINGS: Severe diffuse bony demineralization. Age-indeterminate deformities of the L1 and L2 superior endplates with resultant mild and moderate height loss, respectively. Additional height loss involving the T10 and T11 vertebral bodies with more chronic appearance. Straightening of lumbar lordosis. No obvious spondylolisthesis. Moderate levoscoliosis. Mild to moderate degenerative disc disease. Mild to severe facet arthropathy. IMPRESSION: 1. Age-indeterminate compression fractures of the L1 and L2 superior endplates. Compression deformities at T10 and T11 are favored to be chronic. Consider further seen with MRI or CT. 2. Severe bony demineralization partially limits evaluation for fractures. 3. Moderate lumbar spine degenerative changes associated with moderate levoscoliosis. [employer] Work Phone: Radiology Study observation (narrative) [employer] Work Phone: XR LUMBAR SPINE (2-3 VIEWS)O rdered By: Tim Bishop on 12-08-2022 [employer] Work Phone: Vital Signs Date Time Vital Sign Value Performing Clinician Faci lity 12-14-2022 14:46-0400 Body height 162.6 cm Abdifatah Bridges III, MD Work Phone: [facility] 12-14-2022 08:15-0400 Body temperature 97.3 [degF] Abdifatah Bridges III, MD Work Phone: [facility] 12-14-2022 08:15-0400 Diastolic blood pressure 65 mm[Hg] Abdifatah Bridges III, MD Work Phone: [facility] 12-14-2022 08:15-0400 Heart rate 71 /min Abdifatah Bridges III, MD Work Phone: [facility] 12-14-2022 08:15-0400 Respiratory rate 16 /min Abdifatah Bridges III, MD Work Phone: [facility] 12-14-2022 08:15-0400 SaO2% (BldA) [Mass fraction] 98 % Abdifatah Bridges III, MD Work Phone: [facility] 12-14-2022 08:15-0400 Systolic blood pressure 110 mm[Hg] Abdifatah Bridges III, MD Work Phone: [facility] 12-14-2022 06:00-0400 Body mass index (BMI) [Ratio] 20.06 kg/m2 Abdifatah Bridges III, MD Work Phone: [facility] 12-14-2022 06:00-0400 Body weight 53 kg Abdifatah Bridges III, MD Work Phone: [facility] 12-13-2022 11:54-0400 Diastolic blood pressure 64 mm[Hg] [facility] [place] 2 [facility] 12-13-2022 11:54-0400 SaO2% (BldA) [Mass fraction] 100 % [facility] [place] 2 [facility] 12-13-2022 11:54-0400 Systolic blood pressure 112 mm[Hg] [facility] [place] 2 [facility] Encounters Encounter Date Encounter Type Care Provider Facility Start: 01-30-2023 End: 01-30-2023 ambulatory ZHEN SOLO [facility] Start: 01-24-2023 End: 01-25-2023 Emergency department patient visit [facility] Start: 12-25-2022 End: 12-26-2022 Emergency department patient visit [facility] Start: 12-13-2022 End: 12-16-2022 ambulatory [facility] Start: 12-13-2022 End: 12-15-2022 Subsequent hospital visit by physician [facility] [address] Special Procedures Comment on above: Arrived Start: 12-08-2022 End: 12-14-2022 Evaluation and management of inpatient ELOY Sonia SULLIVAN [facility] Start: 12-08-2022 End: 12-14-2022 Evaluation and management of inpatient Abdifatah Bridges MD Work Phone: [facility] Med Surg ICU Comment on above: Lumbar compression f racture, sequela (Primary Dx) Procedures Date Procedure Procedure Detail Performing Clinician Start: 12-14-2022 Rhythm ecg 1-3 leads w/interpretation & report Unknown Provider Result Start: 12-13-2022 Thoracentesis needle /cath pleura w/imaging Thomas Chang MD Work Phone: Start: 12-13-2022 Rhythm ecg 1-3 leads w/interpretation & report Unknown Provider Result Start: 12-12-2022 LACTATE, SEPSIS Thomas Chang MD Work Phone: Start: 12-12-2022 Radiologic exam ches t single view Thomas Chang MD Work Phone: Start: 12-12-2022 Urinalysis microscop ic only Thomas Chang MD Work Phone: Start: 12-12-2022 Urnls dip stick/tabl et rgnt auto w/o microscopy Thomas Chang MD Work Phone: Start: 12-12-2022 LACTATE, SEPSIS Thomas Chang MD Work Phone: Start: 12-11-2022 Fluoroscopy during operation Deuce Olguinenship DO Work Phone: Start: 12-11-2022 End: 12-11-2022 Perq vert agmntj cavity crtj uni/bi cannulj lmbr Deuce Pozo Hollis DO Work Phone: Start: 12-11-2022 Rhythm ecg 1-3 leads w/interpretation & report Unknown Provider Result Start: 12-10-2022 Echo tthrc r-t 2d w/wom-mode compl spec&colr d Cooper Mitchell MD Work Phone: Start: 12-10-2022 Radiologic exam ches t single view Carlos Alberto Best MD Work Phone: Start: 12-10-2022 End: 12-10-2022 Mri spinal canal thoracic w/o contrast matrl Deuce Pozo Hollis DO Work Phone: Start: 12-10-2022 Ecg routine ecg w/le ast 12 lds trcg only w/o i&r Thomas Chang MD Work Phone: Start: 12-10-2022 Basic metabolic pane l calcium total Showkat Stephen MARTINEZ Work Phone: Start: 12-10-2022 Rhythm ecg 1-3 leads w/interpretation & report Unknown Provider Result Start: 12-08-2022 Ct lumbar spine w/o contrast material Abdifatah Bridges MD Work Phone: Start: 12-08-2022 Radex spine lumbosac ral 2/3 views Abdifatah Bridges MD Work Phone: Start: 12-08-2022 Ecg routine ecg w/le ast 12 lds trcg only w/o i&r Abdifatah Bridges MD Work Phone: Plan of Treatment Date Care Activity Detail Author Start: 08-15-2032 DTaP/Tdap/Td vaccine (2 - Td or Tdap) DTaP/Tdap/Td vaccine (2 - Td or Tdap) [facility] Start: 03-12-2023 Influenza vaccination Flu vacc ine (Season Ended) [facility] Start: 12-10-2022 Annual Wellness Visi t (AWV) Annual Wellness Visit (AWV) [facility] Start: 1986 Shingles vaccine (1 of 2) Shingles vaccine (1 of 2) [facility] Start: 1948 Depression Screen Depression Screen [facility] Start: 1942 Pneumococcal 65+ yea rs Vaccine (1 - PCV) Pneumococcal 65+ years Vaccine (1 - PCV) [facility] Start: 1936 COVID-19 Vaccine (#1) COVID-19 Vacci ne (#1) [facility] End: 12-13-2022 Culture, Body Fluid Culture, Body Fluid Microbiology Routine One Time for 1 Occurrences starting 12/13/2022 until 12/13/2022 [facility] Work Phone: Comment on above: One Time for 1 Occur rences starting 12/13/2022 until 12/13/2022 End: 12-13-2022 Cytology, Non-Senior Assistant Manager Cytology, Non-Senior Assistant Manager Lab Routine One Time for 1 Occurrences starting 12/13/2022 until 12/13/2022 [employer] Phone: Comment on above: One Time for 1 Occur rences starting 12/13/2022 until 12/13/2022 End: 12-13-2022 Glucose, Body Fluid Glucose, Body Fluid Lab Routine One Time for 1 Occurrences starting 12/13/2022 until 12/13/2022 [employer] Phone: Comment on above: One Time for 1 Occur rences starting 12/13/2022 until 12/13/2022 End: 12-11-2022 INITIATE PACU OXYGEN THERAPY PROTOCOL Initiate PACU Oxygen Therapy Protocol Respiratory Care Routine Continuous until discontinued starting 12/11/2022 [employer] Phone: Comment on above: Continuous until dis continued starting 12/11/2022 Intermittent pulse oximetry Pulse Oximetry Spot Check Respiratory Care Routine As Needed until discontinued starting 12/09/2022 [employer] Phone: Comment on above: As Needed until disc ontinued starting 12/09/2022 End: 12-13-2022 Lactate Dehydrogenase, Body Fluid Lactate Dehydrogenase, Body Fluid Lab Routine One Time for 1 Occurrences starting 12/13/2022 until 12/13/2022 [employer] Phone: Comment on above: One Time for 1 Occur rences starting 12/13/2022 until 12/13/2022 Nasal Cannula Oxygen Nasal Cannu la Oxygen Respiratory Care Routine Daily until discontinued starting 12/11/2022 [employer] Phone: Comment on above: Daily until disconti nued starting 12/11/2022 Nasal Cannula Oxygen Nasal Cannu la Oxygen Respiratory Care Routine Daily until discontinued starting 12/12/2022 [employer] Phone: Comment on above: Daily until disconti nued starting 12/12/2022 Oxygen therapy [[facility] Data Set] Initiate Oxygen Therapy Protocol Respiratory Care Routine As Needed until discontinued starting 12/09/2022 [employer] Phone: Comment on above: As Needed until disc ontinued starting 12/09/2022 Oxygen therapy [[facility] Data Set] Initiate Oxygen Therapy Protocol Respiratory Care Routine As Needed until discontinued starting 12/11/2022 [employer] Phone: Comment on above: As Needed until disc ontinued starting 12/11/2022 End: 12-13-2022 pH, Body Fluid pH, Body Fluid Lab Routine One Time for 1 Occurrences starting 12/13/2022 until 12/13/2022 [employer] Phone: Comment on above: One Time for 1 Occur rences starting 12/13/2022 until 12/13/2022 End: 12-11-2022 , urine POCT , urine POCT Point of Care Testing Routine One Time for 1 Occurrences starting 12/11/2022 until 12/11/2022 [employer] Phone: Comment on above: One Time for 1 Occur rences starting 12/11/2022 until 12/11/2022 End: 12-13-2022 Protein [Mass/volume] in Serum or Plasma Protein, Total Lab Routine One Time for 1 Occurrences starting 12/13/2022 until 12/13/2022 [employer] Phone: Comment on above: One Time for 1 Occur rences starting 12/13/2022 until 12/13/2022 Payers Date Payer Category Payer Medicare [id number] 1935 Unknown [id number] 1935 Unknown [id number] 2.16 [id number] 1936 Unknown [id number]. [id number] 1935 Unknown [id number] [id number]. [id number] 1935 Unknown [id number] [id number]. [id number] Social History Date Type Detail Facility Start: 12-09-2022 [facility] [employer] Phone: History of tobacco use Cigarette Smoker [facility] [employer] Phone: Start: 12-09-2022 Cigarettes smoked current (pack per day) - Reported 1 [facility] [employer] Phone: Start: 12-09-2022 Tobacco use and exposure Smoke less tobacco non-user [facility] [employer] Phone: Start: 1935 Sex Assigned At Not on file [facility] [employer] Phone: Medical Equipment Procedure Code Equipment Code Equipment Origin al Text Equipment Identifier Dates Cement Bne Hi Vi sc Radiopaque Kyphon Hv-R - [id number] Start: 12-11-2022 Hospital Discharge instructions 12-14-2022 Discharge Instr - LORA Note Date & Type Note Facility 12-14-2022 Hospital Discharg e instructions Thomas Chang MD - 12/14/2022 12:07 PM EDT Continuity of Care Form Patient Name: Rebekah Moore : 1935 Admit date: 12/08/2022 Discharge date: Code Status Order: Full Code Advance Directives: Advance Care Flowsheet Documentation Date/Time Healthcare Directive Type of Healthcare Directive Copy in Chart Healthcare Agent Appointed Healthcare Agent's Name Healthcare Agent's Phone Number 12/11/22 1122 No, patient does not have an advance directive for healthcare treatment -- -- -- -- -- Admitting Physician: Thomas Chang MD PCP: Hawa Garzon Discharging Nurse: Discharging Hospital Unit/Room#: 324/324-01 Discharging Unit Phone Number: Emergency Contact: Extended Emergency Contact Information Primary Emergency Contact: Klarissa Moore Relation: Child Police Department Secretary needed? No Secondary Emergency Contact: maria dolores kamara Relation: Child Past Surgical History: Past Surgical History: Procedure Laterality Date KYPHOSIS SURGERY 12/11/2022 SPINE SURGERY N/A 12/11/2022 T10, T11, L3 KYPHOPLASTY WITH KYPHON performed by Deuce Hollis DO at [facility] OR Immunization History: There is no immunization history on file for this patient. Active Problems: Patient Active Problem List Diagnosis Code Fracture of lumbar spine without cord injury, closed, initial encounter ([facility]) S32.009A Pleural effusion, right J90 Atrial fibrillation with rapid ventricular response ([facility]) I48.91 Anasarca R60.1 Isolation/Infection: Isolation No Isolation Patient Infection Status None to display Nurse Assessment: Last Vital Signs: BP 110/65 Pulse 71 Temp 97.3 F (36.3 C) (Axillary) Resp 16 Ht 5' 4 (1.626 m) Wt 116 lb 13.5 oz (53 kg) SpO2 98% BMI 20.06 kg/m Last documented pain score (0-10 scale): Pain Level: 4 Last Weight: Wt Readings from Last 1 Encounters: 12/14/22 116 lb 13.5 oz (53 kg) Mental Status: oriented IV Access: - None Nursing Mobility/ADLs: Walking Assisted Transfer Assisted Bathing Assisted Dressing Assisted Toileting Assisted Feeding Independent Animal Therapist Independent Med Delivery whole Wound Care Documentation and Therapy: Puncture 12/11/22 Back (Active) Kimberlee-wound Assessment Intact 12/13/22 1600 Closure Adhesive bandage 12/13/22 1600 Drainage Amount Small 12/12/22 0345 Drainage Description Sanguinous 12/12/22 0345 Dressing/Treatment Adhesive bandage 12/13/22 1600 Dressing Changed Changed/New 12/11/22 1347 Dressing Status Intact;Old drainage noted 12/13/22 1600 Number of days: 2 Puncture 12/13/22 Back (Active) Kimberlee-wound Assessment Intact 12/13/22 1600 Closure Adhesive bandage 12/13/22 1600 Drainage Amount None 12/13/22 1600 Dressing/Treatment Gauze dressing/dressing sponge;Tape/Soft cloth adhesive tape 12/13/22 1600 Dressing Status Clean, dry & intact 12/13/22 1600 Number of days: 0 Elimination: Continence: Bowel: Yes Bladder: No Urinary Catheter: None Colostomy/Ileostomy/Ileal Conduit: No Date of Last BM: 12/13 Intake/Output Summary (Last 24 hours) at 12/14/2022 1158 Last data filed at 12/14/2022 0600 Gross per 24 hour Intake 250 ml Output 1370 ml Net -1120 ml I/O last 3 completed shifts: In: 670 [P.O.:650; I.V.:20] Out: 1690 [Urine:1690] Safety Concerns: At Risk for Falls Impairments/Disabilities: None Nutrition Therapy: Current Nutrition Therapy: - Oral Diet: General Routes of Feeding: Oral Liquids: Thin Liquids Daily Fluid Restriction: no Last Modified Barium Swallow with Video (Video Swallowing Test): not done Treatments at the Time of Hospital Discharge: Respiratory Treatments: Oxygen Therapy: is not on home oxygen therapy. Ventilator: - No ventilator support Rehab Therapies: Physical Therapy and Occupational Therapy Weight Bearing Status/Restrictions: No weight bearing restrictions Other Medical Equipment (for information only, NOT a DME order): walker Other Treatments: Patient's personal belongings (please select all that are sent with patient): None RN SIGNATURE: CASE MANAGEMENT/SOCIAL WORK SECTION Inpatient Status Date: Readmission Risk Assessment Score: Readmission Risk Risk of Unplanned Readmission: 11 Discharging to Facility/ Agency Name: Facility: [facility] Address: [address] [place] [address] Service Loss Control Consultant/Hotel Dining Room Cashier signature: PHYSICIAN SECTION Prognosis: Fair Condition at Discharge: Stable Rehab Potential (if transferring to Rehab): Fair Recommended Labs or Other Treatments After Discharge: PT/OT; follow-up with orthopedic surgery and pulmonology as scheduled. Physician Certification: I certify the above information and transfer of Rebekah Moore is necessary for the continuing treatment of the diagnosis listed and that she requires Penitentiary Facility for greater 30 days. Update Admission H&P: No change in H&P PHYSICIAN SIGNATURE: documented in this encounter [facility] Work Phone: Hospital course Narrative 12-14-2022 Thomas Chang MD - 12/14/2022 9:11 AM EDT Note Date & Type Note Facility 12-14-2022 Hospital course Narrative Images from the original note were not included. [facility] Office: [phone] Aditya Zapata DO, Teo Espitia DO, Haroon Killian DO, Italo Sanabria DO, Martínez Julio MD, Grecia Fox MD, Copoer Mitchell MD, Annita Argueta MD, Kapil Jones MD, Darrel Tejada MD, Hamilton Redmond DO, Barney Mcclelland MD, Megan Harper DO, Era Garcia MD, Thomas Chang MD, Tim Zapata DO, Kenya Garduno MD, Brian Lai MD, Sanya Rojas DO, Alissa Pulido MD, Larissa Moses MD, Nicolasa Yeh MD, Clara Calles MD, Moustapha Gillespie DO, Augustus Pak MD, No Walton CNP, Kendra Ramirez CNP, Aviva Barnett CNP, Hamzah Hartman CNP, Yudith Shell DNP, Karissa Nguyen CNP, Julissa Landis CNP, Genet Vega CNP, Keri Dietz CNP, Shirley Helton CNP, Deuce Guthrie PA-C, Anabelle Mccoy, [place], Aparna Bryant CNP, Rebekah Duran, CORNELIUS [facility] IN-PATIENT SERVICE [facility] Discharge Summary Patient ID: Rebekah Moore : 1935 ACCOUNT: [id number] Patient's PCP: Hawa Garzon Admit Date: 12/08/2022 Discharge Date: 12/14/2022 Length of Stay: 5 Code Status: Full Code Admitting Physician: Thomas Chang MD Discharge Physician: Thomas Chang MD Active Discharge Diagnoses: Hospital Problem Lists: Principal Problem: Fracture of lumbar spine without cord injury, closed, initial encounter (HCC) Active Problems: Pleural effusion, right Atrial fibrillation with rapid ventricular response (HCC) Anasarca Resolved Problems: * No resolved hospital problems. * Admission Condition: poor Discharged Condition: fair Hospital Stay: Hospital Course: Rebekah Moore is a 87 y.o. female with a past medical history of atrial fibrillation (on Eliquis) and HFrEF who presented to the emergency department on 12/09/2022 after experiencing a mechanical fall at home. In the ED, the patient was afebrile and nontoxic appearing. CT scan of the lumbar spine was done and was remarkable for T11, L3 and L4 compression fractures as well as a large right pleural effusion. The patient was admitted to internal medicine for further management. Orthopedic surgery was consulted and took the patient to the OR for T10, T11 and L3 vertebral augmentation on 12/11. The patient had an uncomplicated post-operative course. The patient was hypoxic during admission and an IR-guided therapeutic thoracentesis was done for the right pleural effusion on 12/13. The patient improved following thoracentesis. She is discharged to SNF today (12/14) in stable condition. The patient is instructed to follow-up with orthopedic surgery and pulmonology as scheduled. Significant therapeutic interventions: Vertebral augmentation; thoracentesis Significant Diagnostic Studies: Labs: Hematology:No results for input(s): WBC, RBC, HGB, HCT, MCV, MCH, MCHC, RDW, PLT, MPV, SEDRATE, CRP, INR, DDIMER, QG0CSOWB, LABABSO in the last 72 hours. Invalid input(s): PT Chemistry:No results for input(s): NA, K, CL, CO2, GLUCOSE, BUN, CREATININE, MG, ANIONGAP, LABGLOM, GFRAA, CALCIUM, CAION, PHOS, PSA, PROBNP, TROPHS, CKTOTAL, CKMB, CKMBINDEX, MYOGLOBIN, DIGOXIN, LACTACIDWB in the last 72 hours.No results for input(s): PROT, LABALBU, LABA1C, V6WDBQC, O0LURSX, FT4, TSH, AST, ALT, LDH, GGT, ALKPHOS, LABGGT, BILITOT, BILIDIR, AMMONIA, AMYLASE, LIPASE, LACTATE, CHOL, HDL, LDLCHOLESTEROL, CHOLHDLRATIO, TRIG, VLDL, JRQ49JO, PHENYTOIN, PHENYF, URICACID, POCGLU in the last 72 hours. ABG:No results found for: POCPH, PHART, PH, POCPCO2, BVP8PHC, PCO2, POCPO2, PO2ART, PO2, POCHCO3, FDF6DQJ, HCO3, NBEA, PBEA, BEART, BE, THGBART, THB, PXB7TKB, MEZP7JIC, R1AOKCVV, O2SAT, FIO2 No results found for: SPECIAL No results found for: CULTURE Radiology: XR LUMBAR SPINE (2-3 VIEWS) Result Date: 12/08/2022 1. Age-indeterminate compression fractures of the L1 and L2 superior endplates. Compression deformities at T10 and T11 are favored to be chronic. Consider further seen with MRI or CT. 2. Severe bony demineralization partially limits evaluation for fractures. 3. Moderate lumbar spine degenerative changes associated with moderate levoscoliosis. CT LUMBAR SPINE WO CONTRAST Result Date: 12/09/2022 1. Subacute appearing fractures involving the T11 inferior endplate and the superior endplates of L3 and L4. Consider MRI if needed for confirmation. 2. Chronic appearing fractures involving the superior endplates of L1 and L2, likely newer at L2. 3. Bony demineralization consistent with osteoporosis given the above findings. 4. Moderate to severe lumbar spine degenerative changes associated with moderate levoscoliosis. 5. Findings suggestive of volume overload include moderate to large right pleural effusion, trace left pleural effusion, at least trace pericardial effusion, potential for at least trace ascites, and at least mild anasarca. MRI THORACIC SPINE WO CONTRAST Result Date: 12/10/2022 Remote compression deformity at T4, T6, T7, T8, T10, T11, L1, and L2. Prominent inferior endplate Schmorl's node at T11 with adjacent edema or inflammation. Multilevel degenerative change without significant canal stenosis or foraminal narrowing. Large right-sided pleural effusion and trace left-sided pleural effusion. MRI LUMBAR SPINE WO CONTRAST Result Date: 12/10/2022 Mild loss of vertebral body height and superior endplate edema versus inflammation at the L3 level that may represent an acute/subacute compression deformity. Remote compression deformity at L1 and L2. Multilevel degenerative change with foraminal narrowing as described above. XR CHEST PORTABLE Result Date: 12/12/2022 Unchanged chest demonstrating cardiomegaly and right pleural effusion XR CHEST PORTABLE Result Date: 12/10/2022 Right pleural effusion with associated compressive atelectasis. Bibasilar opacities, also likely atelectatic. Infiltrate a consideration. Cardiomegaly with venous hypertension but no radiographic CHF. IR GUIDED THORACENTESIS PLEURAL Result Date: 12/13/2022 Successful ultrasound guided thoracentesis. Consultations: Consults: Final Specialist Recommendations/Findings: IP CONSULT TO ORTHOPEDIC SURGERY IP CONSULT TO PULMONOLOGY IP CONSULT TO CARDIOLOGY IP CONSULT TO CARDIOLOGY The patient was seen and examined on day of discharge and this discharge summary is in conjunction with any daily progress note from day of discharge. Discharge plan: Disposition: To a non-[facility] facility Physician Follow Up: [place] [id number] [address] [phone] Schedule an appointment as soon as possible for a visit in 1 week(s) Hospital follow-up; right-sided pleural effusion Deuce Hollis DO [address] [facility] [phone] Schedule an appointment as soon as possible for a visit in 2 week(s) Post-op follow-up Requiring Further Evaluation/Follow Up POST HOSPITALIZATION/Incidental Findings: Patient will need to follow-up with pulmonology and orthopedic surgery as scheduled. Diet: cardiac diet Activity: As tolerated Instructions to Patient: Follow-up with pulmonology and orthopedic surgery as scheduled. Discharge Medications: Medication List START taking these medications midodrine 10 MG tablet Commonly known as: PROAMATINE Take 0.5 tablets by mouth 3 times daily CHANGE how you take these medications furosemide 20 MG tablet Commonly known as: LASIX What changed: Another medication with the same name was removed. Continue taking this medication, and follow the directions you see here. CONTINUE taking these medications acetaminophen 500 MG tablet Commonly known as: TYLENOL apixaban 2.5 MG Tabs tablet Commonly known as: ELIQUIS aspirin 81 MG chewable tablet digoxin 125 MCG tablet Commonly known as: LANOXIN metoprolol succinate 25 MG extended release tablet Commonly known as: TOPROL XL sacubitril-valsartan 24-26 MG per tablet Commonly known as: ENTRESTO Where to Get Your Medications These medications were sent to [facility] [address] [place] [id number] [address]BBOTT - P [phone] - F [phone] [id number] [facility] [id number] midodrine 10 MG tablet Time spent on discharge is 20 mins in patient examination, evaluation, counseling as well as medication reconciliation, prescriptions for required medications, discharge plan and follow up. Electronically signed by Thomas Chang MD 12/14/2022 9:[address] Hawa Garzon for the opportunity to be involved in this patient's care. documented in this encounter [facility] [employer] Phone: Clinical Note 12-13-2022 Note Date & Type Note Facility 12-13-2022 Note PROCEDURE: ULTRASOUNDGUIDED RIGHT THORACENTESIS 12/13/2022 HISTORY: ORDERING SYSTEM PROVIDED HISTORY: Right-sided pleural effusion TECHNOLOGIST PROVIDED HISTORY: Right-sided pleural effusion Which side should the procedure be performed?->Right TECHNIQUE: This procedure was performed by Emmett Steele PA-C under indirect supervision of Dr. Rawls. A detailed explanation of the procedure including but not limited to risks and benefits of the procedure were discussed. The posterior chest was prepped and draped using universal protocol and maximum sterile barrier technique. All elements of maximal sterile barrier technique, including cap, mask, sterile gown, sterile gloves, sterile drapes, hand hygiene and 2% chlorhexidine for cutaneous antisepsis were followed. While the patient was seated upright, after localizing, marking and anesthetizing the posterior right lower chest with one percent lidocaine. A 5 [place] Y[place] needle was advanced into the pleural effusion under ultrasound guidence. A saved sonographic image demonstrates safe tract access. The catheter was advanced and the needle was removed. The catheter was connected to a Vacutainer bottle and 800 mL of clear yellow fluidwere drained. Postprocedural ultrasound demonstrated no residual fluid. The catheter was removed and the site was dressed appropriately. A sample was sent for laboratory analysis. Estimated blood loss was minimum. The patient tolerated the procedure well and left the department in stable condition. FINDINGS: A total of 800 mL clear yellow fluid was removed. IMPRESSION: Successful ultrasound guided thoracentesis. Interpreted by: MD Emmett Alarcon PA Signed by: Nilo Rawls MD 12/13/22 Final result [facility] History of Present illness Narrative 12-13-2022 Carlos Alberto Best MD - 12/13/2022 5:03 PM EDTThomas Chang MD - 12/13/2022 10:19 AM EDTCarlos Alberto Best MD - 12/12/2022 4:53 PM EDTThomas Chang MD - 12/12/2022 1:25 PM EDT Note Date & Type Note Facility 12-13-2022 History of Present illness Narrative PULMONARY & CRITICAL CARE MEDICINE PROGRESS NOTE Patient: Reebkah Moore Admit date: 12/08/2022 Primary Care Physician: Hawa Garzon Consulting Physician: Thomas Chang MD CODE Status: Full Code LOS: 4 SUBJECTIVE CHIEF COMPLAINT/REASON FOR INITIAL CONSULT:Fall (Fell backwards in the bathroom while trying to have a BM, struck upper/mid back on door. C/o rib pain and pain with movement) BRIEF HOSPITAL COURSE: The patient is a 87 y.o. female ith history of coronary artery disease CHF, and atrial fibrillation atrial fibrillation presented with complaints of back pain after she fell backwards in the bathroom. During evaluation in the hospital she was found to be in A-fib with RVR. CT lumbar spine showed subacute fracture involving T11. CT also reported a large right pleural effusion. Patient does not seem to be a good historian. Her home medication list show Entresto, metoprolol and Lasix. Unsure if she is compliant with her medications. She is receiving IV Lasix now. She is on room air and does not seem to be in any acute respiratory distress. INTERVAL HISTORY: 12/13/22 Patient s/p T10, T11 and L3 kyphoplasty on 12/29 Afebrile, hemodynamically stable On nasal cannula at 2 L/min She is s/p IR guided thoracentesis today with removal of 800 mL clear dark yellow fluid OBJECTIVE VITAL SIGNS: LAST: BP 116/84 Pulse 91 Temp 97.5 F (36.4 C) (Axillary) Resp 14 Ht 5' 4 (1.626 m) Wt 116 lb 10 oz (52.9 kg) SpO2 97% BMI 20.02 kg/m 8-24 HR RANGE: TEMP Temp Av.6 F (36.4 C) Min: 97.5 F (36.4 C) Max: 97.8 F (36.6 C) BP Systolic (24hrs), Av , Min:100 , Max:127 Diastolic (24hrs), Av, Min:57, Max:84 PULSE Pulse Av Min: 66 Max: 91 RR Resp Av Min: 10 Max: 14 O2 SAT SpO2 Av % Min: 97 % Max: 97 % OXYGEN DELIVERY O2 Flow Rate (L/min) Av L/min Min: 2 L/min Max: 4 L/min PHYSICAL EXAM: Physical Exam Constitutional: General: She is awake. Appearance: She is ill-appearing. Interventions: Nasal cannula in place. HENT: Head: Normocephalic and atraumatic. Eyes: General: No scleral icterus. Conjunctiva/sclera: Conjunctivae normal. Cardiovascular: Rate and Rhythm: Normal rate. Heart sounds: Normal heart sounds. No murmur heard. Pulmonary: Effort: No accessory muscle usage or respiratory distress. Breath sounds: Examination of the right-lower field reveals decreased breath sounds. Decreased breath sounds and rales present. Abdominal: General: Bowel sounds are normal. Palpations: Abdomen is soft. Tenderness: There is no abdominal tenderness. Musculoskeletal: Cervical back: Neck supple. Right lower leg: No edema. Left lower leg: No edema. Skin: Coloration: Skin is not pale. Findings: No rash. Neurological: General: No focal deficit present. DATA REVIEW CURRENT MEDICATIONS: Scheduled Meds: [Held by provider] apixaban 2.5 mg Oral BID midodrine 10 mg Oral TID WC furosemide 40 mg IntraVENous BID sodium chloride flush 5-40 mL IntraVENous 2 times per day digoxin 0.125 mg Oral Daily [Held by provider] metoprolol succinate 25 mg Oral Daily [Held by provider] sacubitril-valsartan 1 tablet Oral BID Continuous Infusions: sodium chloride sodium chloride sodium chloride INPUT/OUTPUT: In: 430 [P.O.:410; I.V.:20] Out: 1470 [Urine:1470] Date 12/13/22 - 12/13/22 235 Shift 0459-7924 5067-9425 6531-0099 24 Hour Total INTAKE P.O.(mL/kg/hr) 50(0.1) 50 I.V.(mL/kg) 10(0.2) 10(0.2) Shift Total(mL/kg) 50(0.9) 10(0.2) 60(1.1) OUTPUT Urine(mL/kg/hr) 320(0.8) 1150 1470 Shift Total(mL/kg) 320(6) 1150(21.7) 1470(27.8) Weight (kg) 52.9 52.9 52.9 52.9 LABORATORY RESULTS: BLOOD GASES: No results for input(s): POCPH, POCPCO2, POCPO2, POCHCO3, GGCL9QIB in the last 72 hours. COMPLETE BLOOD COUNTS: No results for input(s): WBC, HGB, HCT, MCV, PLT, LABLYMP, MID, GRAN, LYMPHOPCT, MIDPERCENT, GRANULOCYTES, RBC, MCH, MCHC, RDW in the last 72 hours. Invalid input(s): RELATIVEPERCENT C-REACTIVE PROTEIN: No results for input(s): CRP in the last 72 hours. LACTATE DEHYDROGENASE: No results for input(s): LDH in the last 72 hours. BASIC METABOLIC PROFILE: No results for input(s): NA, K, CL, CO2, BUN, CREATININE, GLUCOSE, PHOS, CA, IONCA in the last 72 hours. Invalid input(s): MG LIVER FUNCTION TESTS: No results for input(s): PROT, LABALBU, ALT, AST, GGT, ALKPHOS, BILITOT in the last 72 hours. COAGULATION PROFILE: No results for input(s): INR, PROTIME, APTT in the last 72 hours. D-DIMER: No results for input(s): DDIMER in the last 72 hours. LACTIC ACID: No results for input(s): LACTA in the last 72 hours. CARDIAC ENZYMES: No results for input(s): CKTOTAL, CKMB, CKMBINDEX, TROPONINI in the last 72 hours. Invalid input(s): TROPONIN, HSTROP BRAIN NATRIURETIC PEPTIDE/PRO-BRAIN NATRURETIC PEPTIDE: No results for input(s): BNP, PROBNP in the last 72 hours. TRIGLYCERIDES: No results for input(s): TRIG in the last 72 hours. MICROBIOLOGY RESULTS: URINE CULTURE: No components found for: CURINE BLOOD CULTURE: No components found for: CBLOOD, CFUNGUSBL SPUTUM CULTURE: No components found for: CSPUTUM No results for input(s): SPUTUM, SPECDESC, SPECIAL, CULTURE, STATUS, ORG, CDIFFTOXPCR, MPNEUM, MPNEUG, CAMPYLOBPCR, SALMONELLAPC, SHIGAPCR, SHIGELLAPCR, LACTOQL in the last 72 hours. Invalid input(s): CURINE, CBLOOD, CFUNGUSBL PATHOLOGY RESULTS: RADIOLOGY REPORTS: IR GUIDED THORACENTESIS PLEURAL Final Result Successful ultrasound guided thoracentesis. XR CHEST PORTABLE Final Result Unchanged chest demonstrating cardiomegaly and right pleural effusion FLUORO FOR SURGICAL PROCEDURES Final Result XR CHEST PORTABLE Final Result Right pleural effusion with associated compressive atelectasis. Bibasilar opacities, also likely atelectatic. Infiltrate a consideration. Cardiomegaly with venous hypertension but no radiographic CHF. MRI LUMBAR SPINE WO CONTRAST Final Result Mild loss of vertebral body height and superior endplate edema versus inflammation at the L3 level that may represent an acute/subacute compression deformity. Remote compression deformity at L1 and L2. Multilevel degenerative change with foraminal narrowing as described above. MRI THORACIC SPINE WO CONTRAST Final Result Remote compression deformity at T4, T6, T7, T8, T10, T11, L1, and L2. Prominent inferior endplate Schmorl's node at T11 with adjacent edema or inflammation. Multilevel degenerative change without significant canal stenosis or foraminal narrowing. Large right-sided pleural effusion and trace left-sided pleural effusion. CT LUMBAR SPINE WO CONTRAST Final Result 1. Subacute appearing fractures involving the T11 inferior endplate and the superior endplates of L3 and L4. Consider MRI if needed for confirmation. 2. Chronic appearing fractures involving the superior endplates of L1 and L2, likely newer at L2. 3. Bony demineralization consistent with osteoporosis given the above findings. 4. Moderate to severe lumbar spine degenerative changes associated with moderate levoscoliosis. 5. Findings suggestive of volume overload include moderate to large right pleural effusion, trace left pleural effusion, at least trace pericardial effusion, potential for at least trace ascites, and at least mild anasarca. XR LUMBAR SPINE (2-3 VIEWS) Final Result 1. Age-indeterminate compression fractures of the L1 and L2 superior endplates. Compression deformities at T10 and T11 are favored to be chronic. Consider further seen with MRI or CT. 2. Severe bony demineralization partially limits evaluation for fractures. 3. Moderate lumbar spine degenerative changes associated with moderate levoscoliosis. ECHOCARDIOGRAM: No results found for this or any previous visit. ASSESSMENT AND PLAN PROBLEM LIST: Patient Active Problem List Diagnosis Fracture of lumbar spine without cord injury, closed, initial encounter ([facility]) Pleural effusion, right Atrial fibrillation with rapid ventricular response (HCC) Anasarca ASSESSMENT: Right pleural effusion, s/p thoracentesis 12/13 Congestive cardiac failure LV systolic dysfunction, EF 40% Atrial fibrillation, on chronic anticoagulation with Eliquis Recent fall T11 compression fracture; s/p kyphoplasty PLAN: I personally interviewed/examined the patient; reviewed interval history, interpreted all available radiographic and laboratory data at the time of service. Patient remains hemodynamically stable On nasal cannula Echo reviewed Diuresis with Lasix S/p IR guided thoracentesis Pleural fluid analysis ordered CHF management as per primary service/cardiology Use supplemental oxygen if needed, to keep oxygen saturation >90% Encourage incentive spirometry/Acapella Maintain bronchopulmonary hygiene Aspiration precautions Bronchodilators as needed Anticoagulation to be resumed when okay with orthopedic surgery Physical/occupational therapy Smoking cessation counseling It was my pleasure to evaluate Rebekah Moore today. I would like to thank you for allowing me to participate in the care of this patient. Please feel free to call with any further questions or concerns. We will continue to follow. Carlos Alberto Best MD Pulmonary and Critical Care Medicine 12/13/2022 This note is created with the assistance of a speech recognition program. While intending to generate a document that actually reflects the content of the visit, the document can still have some errors including those of syntax and sound-alike substitutions which may escape proof reading. It such instances, actual meaning can be extrapolated by contextual diversion. Images from the original note were not included. [facility] Office: [phone] Aditya Zapata DO, Teo Espitia DO, Haroon Killian DO, Italo Sanabria DO, Martínez Julio MD, Grecia Fox MD, Cooper Mitchell MD, Annita Argueta MD, Kapil Jones MD, Darrel Tejada MD, Hamilton Redmond DO, Barney Mcclelland MD, Megan Harper DO, Era Garcia MD, Thomas Chang MD, Tim Zapata DO, Kenya Garduno MD, Brian Lai MD, Sanya Rojas DO, Alissa Pulido MD, Larissa Moses MD, Nicolasa Yeh MD, Clara Calles MD, Moustapha Gillespie DO, Augustus Pak MD, No Walton, CAD PROGRAMMER, Kendra Ramirez, CAD PROGRAMMER, Aviva Barnett, CAD PROGRAMMER, Hamzah Hartman, CAD PROGRAMMER, Yudith Shell, DNP, Karissa Nguyen, CAD PROGRAMMER, Julissa Landis, CAD PROGRAMMER, Genet Vega, CAD PROGRAMMER, Keri Dietz, CAD PROGRAMMER, Shirley Helton, CAD PROGRAMMER, MEGHA Mcelroy-Alcon, Anabelle Mccoy, LICENSED MENTAL HEALTH COUNSELOR, Aparna Bryant, CAD PROGRAMMER, Rebekah Durna, CAD PROGRAMMER [facility] IN-PATIENT SERVICE [facility] Progress Note 12/13/2022 10:19 AM Name: Rebekah Moore Acct: [id number] Room: 324/324-01 Day: 4 Admit Date: 12/08/2022 8:59 PM PCP: Hawa Garzon Code Status: Full Code Subjective: Patient was seen and examined at bedside this AM. She reports feeling okay and is without complaint but remains on 4 L nasal cannula. Plan for IR-guided thoracentesis of the right pleural effusion this morning. Anticipate discharge in 24-48 hours pending continued clinical improvement. Medications: Allergies: No Known Allergies Current Meds: Scheduled Meds: [Held by provider] apixaban 2.5 mg Oral BID midodrine 10 mg Oral TID WC furosemide 40 mg IntraVENous BID sodium chloride flush 5-40 mL IntraVENous 2 times per day digoxin 0.125 mg Oral Daily [Held by provider] metoprolol succinate 25 mg Oral Daily [Held by provider] sacubitril-valsartan 1 tablet Oral BID Continuous Infusions: sodium chloride sodium chloride sodium chloride PRN Meds: sodium chloride, sodium chloride flush, sodium chloride, morphine, HYDROmorphone, hydrALAZINE, sodium chloride flush, sodium chloride, [Held by provider] potassium chloride OR [Held by provider] potassium alternative oral replacement OR [Held by provider] potassium chloride, [Held by provider] magnesium sulfate, ondansetron OR ondansetron, polyethylene glycol, acetaminophen OR acetaminophen, HYDROcodone 5 mg - acetaminophen OR HYDROcodone 5 mg - acetaminophen Data: Vitals: BP 114/73 Pulse 81 Temp 97.6 F (36.4 C) Resp 16 Ht 5' 4 (1.626 m) Wt 116 lb 10 oz (52.9 kg) SpO2 96% BMI 20.02 kg/m Temp (24hrs), Av.7 F (36.5 C), Min:97.3 F (36.3 C), Max:98.2 F (36.8 C) No results for input(s): POCGLU in the last 72 hours. I/O (24Hr): Intake/Output Summary (Last 24 hours) at 12/13/2022 1019 Last data filed at 12/13/2022 0400 Gross per 24 hour Intake 670 ml Output 320 ml Net 350 ml Labs: Hematology: No results for input(s): WBC, RBC, HGB, HCT, MCV, MCH, MCHC, RDW, PLT, MPV, SEDRATE, CRP, INR, DDIMER, UN3OHUBH, LABABSO in the last 72 hours. Invalid input(s): PT Chemistry: No results for input(s): NA, K, CL, CO2, GLUCOSE, BUN, CREATININE, MG, ANIONGAP, LABGLOM, GFRAA, CALCIUM, CAION, PHOS, PSA, PROBNP, TROPHS, CKTOTAL, CKMB, CKMBINDEX, MYOGLOBIN, DIGOXIN, LACTACIDWB in the last 72 hours. No results for input(s): PROT, LABALBU, LABA1C, B9HHZYG, R1HKAMF, FT4, TSH, AST, ALT, LDH, GGT, ALKPHOS, LABGGT, BILITOT, BILIDIR, AMMONIA, AMYLASE, LIPASE, LACTATE, CHOL, HDL, LDLCHOLESTEROL, CHOLHDLRATIO, TRIG, VLDL, OFC82NH, PHENYTOIN, PHENYF, URICACID, POCGLU in the last 72 hours. ABG:No results found for: POCPH, PHART, PH, POCPCO2, HMA6VHH, PCO2, POCPO2, PO2ART, PO2, POCHCO3, ZBU8LMW, HCO3, NBEA, PBEA, BEART, BE, THGBART, THB, USY3QTZ, WTUW2DDW, O6IUTWPI, O2SAT, FIO2 No results found for: SPECIAL No results found for: CULTURE Radiology: XR LUMBAR SPINE (2-3 VIEWS) Result Date: 12/08/2022 1. Age-indeterminate compression fractures of the L1 and L2 superior endplates. Compression deformities at T10 and T11 are favored to be chronic. Consider further seen with MRI or CT. 2. Severe bony demineralization partially limits evaluation for fractures. 3. Moderate lumbar spine degenerative changes associated with moderate levoscoliosis. CT LUMBAR SPINE WO CONTRAST Result Date: 12/09/2022 1. Subacute appearing fractures involving the T11 inferior endplate and the superior endplates of L3 and L4. Consider MRI if needed for confirmation. 2. Chronic appearing fractures involving the superior endplates of L1 and L2, likely newer at L2. 3. Bony demineralization consistent with osteoporosis given the above findings. 4. Moderate to severe lumbar spine degenerative changes associated with moderate levoscoliosis. 5. Findings suggestive of volume overload include moderate to large right pleural effusion, trace left pleural effusion, at least trace pericardial effusion, potential for at least trace ascites, and at least mild anasarca. Physical Examination: General appearance: alert, cooperative and no distress Mental Status: oriented to person, place and time and normal affect Lungs: Decreased breath sounds on the right. Heart: regular rate and rhythm, no murmur Abdomen: soft, nontender, nondistended, normal bowel sounds, no masses, hepatomegaly, splenomegaly Extremities: 1+ pitting edema appreciated in bilateral lower extremities. Skin: no gross lesions, rashes, induration Assessment: Hospital Problems Last Modified POA * (Principal) Fracture of lumbar spine without cord injury, closed, initial encounter ([facility]) 12/09/2022 Yes Pleural effusion, right 12/09/2022 Yes Atrial fibrillation with rapid ventricular response ([facility]) 12/09/2022 Yes Anasarca 12/09/2022 Yes Plan: T11 compression fracture -CT lumbar spine showing subacute appearing fractures in the T11 inferior endplate as well as L3 and L4 endplates -MRI thoracic and lumbar spine showing L1 and L2 compression fractures -Patient is POD #2 s/p kyphoplasty Right pleural effusion -Secondary to underlying HFrEF -Echocardiogram showing reduced EF of 40% -Continue diuresis -IR-guided thoracentesis Atrial fibrillation -Chronic -Continue home Eliquis -Continue home digoxin and metoprolol HFrEF -Currently in acute exacerbation -Lasix as above Medical Decision Making: Medium Thomas Chang MD 12/13/2022 10:19 AM PULMONARY & CRITICAL CARE MEDICINE PROGRESS NOTE Patient: Rebekah Moore Admit date: 12/08/2022 Primary Care Physician: Hawa Garzon Consulting Physician: Thomas Chang MD CODE Status: Full Code LOS: 3 SUBJECTIVE CHIEF COMPLAINT/REASON FOR INITIAL CONSULT:Fall (Fell backwards in the bathroom while trying to have a BM, struck upper/mid back on door. C/o rib pain and pain with movement) BRIEF HOSPITAL COURSE: The patient is a 87 y.o. female ith history of coronary artery disease CHF, and atrial fibrillation atrial fibrillation presented with complaints of back pain after she fell backwards in the bathroom. During evaluation in the hospital she was found to be in A-fib with RVR. CT lumbar spine showed subacute fracture involving T11. CT also reported a large right pleural effusion. Patient does not seem to be a good historian. Her home medication list show Entresto, metoprolol and Lasix. Unsure if she is compliant with her medications. She is receiving IV Lasix now. She is on room air and does not seem to be in any acute respiratory distress. INTERVAL HISTORY: 12/12/22 Patient s/p T10, T11 and L3 kyphoplasty on 12/29 T-max is 98.7 Remains hemodynamically stable On nasal cannula at 2 L/min Denies any shortness of breath, cough or wheezing OBJECTIVE VITAL SIGNS: LAST: BP (!) 98/52 Pulse 70 Temp 98.2 F (36.8 C) (Oral) Resp 18 Ht 5' 4 (1.626 m) Wt 118 lb 13.3 oz (53.9 kg) SpO2 98% BMI 20.40 kg/m 8-24 HR RANGE: TEMP Temp Av.8 F (36.6 C) Min: 97 F (36.1 C) Max: 98.7 F (37.1 C) BP Systolic (24hrs), Av , Min:74 , Max:108 Diastolic (24hrs), Av, Min:42, Max:75 PULSE Pulse Av.4 Min: 70 Max: 116 RR Resp Av.3 Min: 12 Max: 18 O2 SAT SpO2 Av % Min: 98 % Max: 100 % OXYGEN DELIVERY No data recorded PHYSICAL EXAM: Physical Exam Constitutional: General: She is awake. Appearance: She is ill-appearing. Interventions: Nasal cannula in place. HENT: Head: Normocephalic and atraumatic. Eyes: General: No scleral icterus. Conjunctiva/sclera: Conjunctivae normal. Cardiovascular: Rate and Rhythm: Normal rate. Heart sounds: Normal heart sounds. No murmur heard. Pulmonary: Effort: No accessory muscle usage or respiratory distress. Breath sounds: Examination of the right-lower field reveals decreased breath sounds. Decreased breath sounds and rales present. Abdominal: General: Bowel sounds are normal. Palpations: Abdomen is soft. Tenderness: There is no abdominal tenderness. Musculoskeletal: Cervical back: Neck supple. Right lower leg: No edema. Left lower leg: No edema. Skin: Coloration: Skin is not pale. Findings: No rash. Neurological: General: No focal deficit present. DATA REVIEW CURRENT MEDICATIONS: Scheduled Meds: [Held by provider] apixaban 2.5 mg Oral BID midodrine 10 mg Oral TID WC sodium chloride flush 5-40 mL IntraVENous 2 times per day sodium chloride flush 5-40 mL IntraVENous 2 times per day [Held by provider] furosemide 40 mg IntraVENous BID sodium chloride flush 5-40 mL IntraVENous 2 times per day digoxin 0.125 mg Oral Daily [Held by provider] metoprolol succinate 25 mg Oral Daily [Held by provider] sacubitril-valsartan 1 tablet Oral BID Continuous Infusions: sodium chloride sodium chloride sodium chloride INPUT/OUTPUT: In: 1200 [P.O.:150; I.V.:1000] Out: 875 [Urine:875] Date 12/12/22 - 12/12/222358 Shift 6120-9630 9884-7057 6679-5094 24 Hour Total INTAKE P.O.(mL/kg/hr) 150(0.3) 150 Shift Total(mL/kg) 150(2.8) 150(2.8) OUTPUT Urine(mL/kg/hr) 525(1.2) 525 Shift Total(mL/kg) 525(9.7) 525(9.7) Weight (kg) 53.9 53.9 53.9 53.9 LABORATORY RESULTS: BLOOD GASES: No results for input(s): POCPH, POCPCO2, POCPO2, POCHCO3, HGEO7KMN in the last 72 hours. COMPLETE BLOOD COUNTS: No results for input(s): WBC, HGB, HCT, MCV, PLT, LABLYMP, MID, GRAN, LYMPHOPCT, MIDPERCENT, GRANULOCYTES, RBC, MCH, MCHC, RDW in the last 72 hours. Invalid input(s): RELATIVEPERCENT C-REACTIVE PROTEIN: No results for input(s): CRP in the last 72 hours. LACTATE DEHYDROGENASE: No results for input(s): LDH in the last 72 hours. BASIC METABOLIC PROFILE: Recent Labs 12/10/22 0504 NA 143 K 3.8 CL 104 CO2 31 BUN 24* CREATININE 0.99* GLUCOSE 121* LIVER FUNCTION TESTS: No results for input(s): PROT, LABALBU, ALT, AST, GGT, ALKPHOS, BILITOT in the last 72 hours. COAGULATION PROFILE: Recent Labs 12/10/22 0504 INR 1.2 PROTIME 12.5 D-DIMER: No results for input(s): DDIMER in the last 72 hours. LACTIC ACID: No results for input(s): LACTA in the last 72 hours. CARDIAC ENZYMES: No results for input(s): CKTOTAL, CKMB, CKMBINDEX, TROPONINI in the last 72 hours. Invalid input(s): TROPONIN, HSTROP BRAIN NATRIURETIC PEPTIDE/PRO-BRAIN NATRURETIC PEPTIDE: No results for input(s): BNP, PROBNP in the last 72 hours. TRIGLYCERIDES: No results for input(s): TRIG in the last 72 hours. MICROBIOLOGY RESULTS: URINE CULTURE: No components found for: CURINE BLOOD CULTURE: No components found for: CBLOOD, CFUNGUSBL SPUTUM CULTURE: No components found for: CSPUTUM No results for input(s): SPUTUM, SPECDESC, SPECIAL, CULTURE, STATUS, ORG, CDIFFTOXPCR, MPNEUM, MPNEUG, CAMPYLOBPCR, SALMONELLAPC, SHIGAPCR, SHIGELLAPCR, LACTOQL in the last 72 hours. Invalid input(s): CURINE, CBLOOD, CFUNGUSBL PATHOLOGY RESULTS: RADIOLOGY REPORTS: XR CHEST PORTABLE Final Result Unchanged chest demonstrating cardiomegaly and right pleural effusion FLUORO FOR SURGICAL PROCEDURES Final Result XR CHEST PORTABLE Final Result Right pleural effusion with associated compressive atelectasis. Bibasilar opacities, also likely atelectatic. Infiltrate a consideration. Cardiomegaly with venous hypertension but no radiographic CHF. MRI LUMBAR SPINE WO CONTRAST Final Result Mild loss of vertebral body height and superior endplate edema versus inflammation at the L3 level that may represent an acute/subacute compression deformity. Remote compression deformity at L1 and L2. Multilevel degenerative change with foraminal narrowing as described above. MRI THORACIC SPINE WO CONTRAST Final Result Remote compression deformity at T4, T6, T7, T8, T10, T11, L1, and L2. Prominent inferior endplate Schmorl's node at T11 with adjacent edema or inflammation. Multilevel degenerative change without significant canal stenosis or foraminal narrowing. Large right-sided pleural effusion and trace left-sided pleural effusion. CT LUMBAR SPINE WO CONTRAST Final Result 1. Subacute appearing fractures involving the T11 inferior endplate and the superior endplates of L3 and L4. Consider MRI if needed for confirmation. 2. Chronic appearing fractures involving the superior endplates of L1 and L2, likely newer at L2. 3. Bony demineralization consistent with osteoporosis given the above findings. 4. Moderate to severe lumbar spine degenerative changes associated with moderate levoscoliosis. 5. Findings suggestive of volume overload include moderate to large right pleural effusion, trace left pleural effusion, at least trace pericardial effusion, potential for at least trace ascites, and at least mild anasarca. XR LUMBAR SPINE (2-3 VIEWS) Final Result 1. Age-indeterminate compression fractures of the L1 and L2 superior endplates. Compression deformities at T10 and T11 are favored to be chronic. Consider further seen with MRI or CT. 2. Severe bony demineralization partially limits evaluation for fractures. 3. Moderate lumbar spine degenerative changes associated with moderate levoscoliosis. ECHOCARDIOGRAM: No results found for this or any previous visit. ASSESSMENT AND PLAN PROBLEM LIST: Patient Active Problem List Diagnosis Fracture of lumbar spine without cord injury, closed, initial encounter (HCC) Pleural effusion, right Atrial fibrillation with rapid ventricular response (HCC) Anasarca ASSESSMENT: Right pleural effusion Congestive cardiac failure Atrial fibrillation with rapid ventricular response, on chronic anticoagulation with Eliquis Recent fall PLAN: I personally interviewed/examined the patient; reviewed interval history, interpreted all available radiographic and laboratory data at the time of service. Patient remains hemodynamically stable On nasal cannula Echo reviewed Diuresis with Lasix Suggest conservative treatment for right-sided pleural effusion CHF management as per primary service/cardiology Use supplemental oxygen if needed, to keep oxygen saturation >90% Encourage incentive spirometry/Acapella Maintain bronchopulmonary hygiene Aspiration precautions Bronchodilators as needed Chemical DVT prophylaxis/anticoagulation to resume once okay with surgery Physical/occupational therapy Smoking cessation counseling It was my pleasure to evaluate Rebekah Moore today. I would like to thank you for allowing me to participate in the care of this patient. Please feel free to call with any further questions or concerns. We will continue to follow. Carlos Alberto Best MD Pulmonary and Critical Care Medicine 12/12/2022, 4:53 PM This note is created with the assistance of a speech recognition program. While intending to generate a document that actually reflects the content of the visit, the document can still have some errors including those of syntax and sound-alike substitutions which may escape proof reading. It such instances, actual meaning can be extrapolated by contextual diversion. Images from the original note were not included. [facility] Office: [phone] Aditya Zapata DO, Teo Espitia DO, Haroon Killian DO, Italo Sanabria DO, Martínez Julio MD, Grecia Fox MD, Cooper Mitchell MD, Annita Argueta MD, Kapil Jones MD, Darrel Tejada MD, Hamilton Redmond DO, Barney Mcclelland MD, Megan Harper DO, Era Garcia MD, Thomas Chang MD, Tim Zapata DO, Kenya Garduno MD, Brian Lai MD, Sanya Rojas DO, Alissa Pulido MD, Larissa Moses MD, Nicolasa Yeh MD, Clara Calles MD, Moustapha Gillespie DO, Augustus Pak MD, No Walton, CAD PROGRAMMER, Kendra Ramirez, CAD PROGRAMMER, Aviva Barnett, CAD PROGRAMMER, Hamzah Hartman, CAD PROGRAMMER, Yudith Shell, [facility], Karissa Nguyen, CAD PROGRAMMER, Julissa Landis, CAD PROGRAMMER, Genet Vega CAD PROGRAMMER, Keri Dietz, CAD PROGRAMMER, Shirley Helton, CAD PROGRAMMER, MEGHA Mcelroy-C, Anabelle Mccoy, LICENSED MENTAL HEALTH COUNSELOR, Aparna Bryant, CAD PROGRAMMER, Rebekah Duran, CAD PROGRAMMER [facility] IN-PATIENT SERVICE [facility] Progress Note 12/12/2022 1:25 PM Name: Rebekah Moore Acct: [id number] Room: [address] [place] [address] Day: 3 Admit Date: 12/08/2022 8:59 PM PCP: Hawa Garzon Code Status: Full Code Subjective: Patient was seen and examined at bedside this AM. She reports feeling okay and is without complaint. The patient is s/p kyphoplasty. Awaiting placement. Medications: Allergies: No Known Allergies Current Meds: Scheduled Meds: [Held by provider] apixaban 2.5 mg Oral BID midodrine 10 mg Oral TID WC sodium chloride flush 5-40 mL IntraVENous 2 times per day sodium chloride flush 5-40 mL IntraVENous 2 times per day furosemide 40 mg IntraVENous BID sodium chloride flush 5-40 mL IntraVENous 2 times per day digoxin 0.125 mg Oral Daily metoprolol succinate 25 mg Oral Daily sacubitril-valsartan 1 tablet Oral BID Continuous Infusions: sodium chloride sodium chloride sodium chloride PRN Meds: sodium chloride flush, sodium chloride, sodium chloride flush, sodium chloride, morphine, HYDROmorphone, hydrALAZINE, sodium chloride flush, sodium chloride, [Held by provider] potassium chloride OR [Held by provider] potassium alternative oral replacement OR [Held by provider] potassium chloride, [Held by provider] magnesium sulfate, ondansetron OR ondansetron, polyethylene glycol, acetaminophen OR acetaminophen, HYDROcodone 5 mg - acetaminophen OR HYDROcodone 5 mg - acetaminophen Data: Vitals: BP (!) 74/42 Comment: RN notified Pulse 80 Temp 97.7 F (36.5 C) (Axillary) Resp 13 Ht 5' 4 (1.626 m) Wt 118 lb 13.3 oz (53.9 kg) SpO2 100% BMI 20.40 kg/m Temp (24hrs), Av.6 F (36.4 C), Min:97 F (36.1 C), Max:98.7 F (37.1 C) No results for input(s): POCGLU in the last 72 hours. I/O (24Hr): Intake/Output Summary (Last 24 hours) at 12/12/2022 1325 Last data filed at 12/12/2022 0913 Gross per 24 hour Intake 150 ml Output 875 ml Net -725 ml Labs: Hematology: Recent Labs 12/10/22 0504 INR 1.2 Chemistry: Recent Labs 12/10/22 0504 NA 143 K 3.8 CL 104 CO2 31 GLUCOSE 121* BUN 24* CREATININE 0.99* ANIONGAP 8* LABGLOM 56* CALCIUM 8.4* TROPHS 35* No results for input(s): PROT, LABALBU, LABA1C, B3BZNGK, F1VXJYY, FT4, TSH, AST, ALT, LDH, GGT, ALKPHOS, LABGGT, BILITOT, BILIDIR, AMMONIA, AMYLASE, LIPASE, LACTATE, CHOL, HDL, LDLCHOLESTEROL, CHOLHDLRATIO, TRIG, VLDL, ODE46OV, PHENYTOIN, PHENYF, URICACID, POCGLU in the last 72 hours. ABG:No results found for: POCPH, PHART, PH, POCPCO2, KUI9CUM, PCO2, POCPO2, PO2ART, PO2, POCHCO3, GSA8ZQN, HCO3, NBEA, PBEA, BEART, BE, THGBART, THB, YPJ9ZIM, QUCY5SAY, V9QYNCIF, O2SAT, FIO2 No results found for: SPECIAL No results found for: CULTURE Radiology: XR LUMBAR SPINE (2-3 VIEWS) Result Date: 12/08/2022 1. Age-indeterminate compression fractures of the L1 and L2 superior endplates. Compression deformities at T10 and T11 are favored to be chronic. Consider further seen with MRI or CT. 2. Severe bony demineralization partially limits evaluation for fractures. 3. Moderate lumbar spine degenerative changes associated with moderate levoscoliosis. CT LUMBAR SPINE WO CONTRAST Result Date: 12/09/2022 1. Subacute appearing fractures involving the T11 inferior endplate and the superior endplates of L3 and L4. Consider MRI if needed for confirmation. 2. Chronic appearing fractures involving the superior endplates of L1 and L2, likely newer at L2. 3. Bony demineralization consistent with osteoporosis given the above findings. 4. Moderate to severe lumbar spine degenerative changes associated with moderate levoscoliosis. 5. Findings suggestive of volume overload include moderate to large right pleural effusion, trace left pleural effusion, at least trace pericardial effusion, potential for at least trace ascites, and at least mild anasarca. Physical Examination: General appearance: alert, cooperative and no distress Mental Status: oriented to person, place and time and normal affect Lungs: clear to auscultation bilaterally, normal effort Heart: regular rate and rhythm, no murmur Abdomen: soft, nontender, nondistended, normal bowel sounds, no masses, hepatomegaly, splenomegaly Extremities: 1+ pitting edema appreciated in bilateral lower extremities. Skin: no gross lesions, rashes, induration Assessment: Hospital Problems Last Modified POA * (Principal) Fracture of lumbar spine without cord injury, closed, initial encounter ([facility]) 12/09/2022 Yes Pleural effusion, right 12/09/2022 Yes Atrial fibrillation with rapid ventricular response ([facility]) 12/09/2022 Yes Anasarca 12/09/2022 Yes Plan: T11 compression fracture -CT lumbar spine showing subacute appearing fractures in the T11 inferior endplate as well as L3 and L4 endplates -MRI thoracic and lumbar spine showing L1 and L2 compression fractures -Patient is POD #1 s/p kyphoplasty Right pleural effusion -Secondary to underlying HFrEF -Echocardiogram showing reduced EF of 40% -IV furosemide 40 mg bid -Patient is currently on 2 L nasal cannula Atrial fibrillation -Chronic -Continue home Eliquis -Continue home digoxin and metoprolol HFrEF -Currently in acute exacerbation -Lasix as above Medical Decision Making: Medium Thomas Chang MD 12/12/2022 1:25 PM Physical Therapy Facility/Department: [facility] ICU Physical Therapy Initial Assessment Name: Rebekah Moore : 1935 Date of Service: 12/12/2022 Chief Complaint Patient presents with Fall Fell backwards in the bathroom while trying to have a BM, struck upper/mid back on door. C/o rib pain and pain with movement Discharge Recommendations: Patient would benefit from continued therapy after discharge PT Equipment Recommendations Equipment Needed: Yes Mobility Devices: Walker Walker: Rolling Other: Pt denies having any assistive devices at home. Patient Diagnosis(es): The encounter diagnosis was Lumbar compression fracture, sequela. Past Medical History: has a past medical history of CAD (coronary artery disease), Chronic atrial fibrillation ([facility]), Chronic CHF (congestive heart failure) ([facility]), Compression fracture of body of thoracic vertebra ([facility]), Moderate malnutrition ([facility]), Osteoporosis, and PAD (peripheral artery disease) ([facility]). Past Surgical History: has a past surgical history that includes Kyphosis surgery (12/11/2022). Assessment Body Structures, Functions, Activity Limitations Requiring Skilled Therapeutic Intervention: Decreased functional mobility ;Decreased endurance;Decreased strength;Decreased safe awareness;Decreased balance Assessment: Pt presents with generalized weakness and impaired mobility s/p fall with lumbar fracture and surgical repair. Pt requires Min-CGA for transfers and ambulated 10' x 2 with Min-CGA; pt fatigues quickly and exhibited unsteadiness during mobility. Pt would be unsafe to return home at this time due to impaired mobility and limited help at home. Pt would benefit from further therapy upon discharge. Treatment Diagnosis: decreased mobility Therapy Prognosis: Good Decision Making: Medium Complexity Requires PT Follow-Up: Yes Activity Tolerance Activity Tolerance: Patient limited by endurance;Patient limited by fatigue Plan Physcial Therapy Plan General Plan: (1-2x/day 6-7x/week) Current Treatment Recommendations: Strengthening, Balance training, Functional mobility training, Transfer training, Gait training, Endurance training, Patient/Caregiver education & training, Safety education & training, Therapeutic activities Safety Devices Type of Devices: Call light within reach, Chair alarm in place, Nurse notified, Left in chair Restraints Restraints Initially in Place: No Restrictions Restrictions/Precautions Restrictions/Precautions: Fall Risk Required Braces or Orthoses?: No Position Activity Restriction Spinal Precautions: No Bending, No Lifting, No Twisting Other position/activity restrictions: S/p T10, T11, L3 kyphoplasty on 12/11/[address] Mustafa. Mobilize as tolerated per orthosx. Up with assistance. Subjective General Patient assessed for rehabilitation services?: Yes Family / Caregiver Present: No Referring Practitioner: Brad Referral Date : 12/09/22 Follows Commands: Within Functional Limits Subjective Subjective: Pt supine in bed and agreeable to therapy. Pt reports chest and back pain primarily with movement but unquantified. Social/Functional History Social/Functional History Lives With: Daughter Type of Home: Mobile home Home Layout: One level Home Access: Stairs to enter without rails Entrance Stairs - Number of Steps: 4 Bathroom Shower/Tub: Walk-in shower Bathroom Toilet: Standard Bathroom Equipment: None Bathroom Accessibility: Accessible Home Equipment: None Has the patient had two or more falls in the past year or any fall with injury in the past year?: Yes Receives Help From: Family (Pt reports supportive dtr) ADL Assistance: Independent Homemaking Assistance: Independent Homemaking Responsibilities: Yes (pt reports IADL tasks able to be shared with or completed by dtr) Ambulation Assistance: Independent (pt self reports wall/furniture walking) Transfer Assistance: Independent Active Marketing Program Coordinator: Yes Patient's Marketing Program Coordinator Info: Daughter Mode of Transportation: Car Occupation: Retired Vision/Hearing Vision Vision: Impaired Vision Exceptions: Wears glasses for distance Hearing Hearing: Exceptions to WFL Hearing Exceptions: Hard of hearing/hearing concerns Cognition Orientation Overall Orientation Status: Within Functional Limits Orientation Level: Oriented X4 Cognition Overall Cognitive Status: Exceptions Arousal/Alertness: Delayed responses to stimuli Following Commands: Follows one step commands with increased time;Follows one step commands with repetition Attention Span: Attends with cues to redirect Safety Judgement: Decreased awareness of need for assistance Problem Solving: Assistance required to generate solutions;Assistance required to implement solutions;Assistance required to identify errors made Insights: Decreased awareness of deficits Initiation: Requires cues for some Sequencing: Requires cues for some Objective Gross Assessment AROM: Within functional limits PROM: Within functional limits Strength: Generally decreased, functional Coordination: Generally decreased, functional Tone: Normal Sensation: Intact AROM RLE (degrees) RLE AROM: WFL AROM LLE (degrees) LLE AROM : WFL Strength RLE Strength RLE: Exception Comment: Grossly 4-/5 Strength LLE Strength LLE: Exception Comment: Grossly 4-/5 Bed mobility Supine to Sit: Contact guard assistance Scooting: Minimal assistance Bed Mobility Comments: Mod verbal/tactile cues for initiation/sequencing/safety awareness and problem solving; increased time/effort to perform as pt with slow pace/quick to fatigue and with decreased cognition; pt with difficulty scooting to edge of bed. Pt retired to chair at end of session. Transfers Sit to Stand: Minimal Assistance Stand to Sit: Contact guard assistance;Minimal Assistance Stand Pivot Transfers: Contact guard assistance;Minimal Assistance Comment: Transfers with RW; increased time and effort. Ambulation Surface: Level tile Device: Rolling Walker Other Apparatus: O2 (4 L O2) Assistance: Contact guard assistance;Minimal assistance Quality of Gait: Pt with slow pace, increased base of support with short step length and height. Gait Deviations: Slow Jenn;Increased ISAEL;Decreased step length;Decreased step height Distance: 10' x 2 Comments: Pt mildly unsteady throughout ambulation but no true LOB; pt fatgues quickly with decreased safety awareness. More Ambulation?: No Stairs/Curb Stairs?: No Balance Posture: Fair Sitting - Static: Fair Sitting - Dynamic: Fair;- Standing - Static: Fair;- Standing - Dynamic: Fair;- Comments: standing balance assessed with RW OutComes Score AM-PAC Score AM-PAC Inpatient Mobility Raw Score : 16 (12/12/22 111) AM-PAC Inpatient T-Scale Score : 40.78 (12/12/22 1113) Mobility Inpatient CMS 0-100% Score: 54.16 (12/12/22 1113) Mobility Inpatient [facility] G-Code Modifier : CK (12/12/22 1113) Tinneti Score Goals Short Term Goals Time Frame for Short Term Goals: 14 visits Short Term Goal 1: Pt to transfer Modified (I) with appropriate device without LOB. Short Term Goal 2: Pt to improve LE strength via seated PRE's x 20 reps. Short Term Goal 3: Pt to ambulate with RW/appropriate device Modified (I) 150' without LOB. Short Term Goal 4: Pt to negotiate 4 steps without rails SUpervision-SBA without LOB for entry into home. Short Term Goal 5: Improve standing static/dynamic balance to Good with least restrictive device to minimize fall risk. Patient Goals Patient Goals : Return home Education Patient Education Education Given To: Patient Education Provided: Role of Therapy;Plan of Care;Transfer Training;Precautions Education Provided Comments: safety with device, surgical precautions Education Method: Verbal;Demonstration Barriers to Learning: None Education Outcome: Verbalized understanding;Continued education needed Therapy Time Individual Concurrent Group Co-treatment Time In 0832 Time Out 0907 Minutes 35 Timed Code Treatment Minutes: 10 Minutes Kristina Franks PT Occupational Therapy Facility/Department: [facility] Occupational Therapy Initial Assessment Name: Rebekah Moore : 1935 Date of Service: 12/12/2022 Chief Complaint Patient presents with Fall Fell backwards in the bathroom while trying to have a BM, struck upper/mid back on door. C/o rib pain and pain with movement Discharge Recommendations: Patient would benefit from continued therapy after discharge Patient Diagnosis(es): The encounter diagnosis was Lumbar compression fracture, sequela. Past Medical History: has a past medical history of CAD (coronary artery disease), Chronic atrial fibrillation ([facility]), Chronic CHF (congestive heart failure) ([facility]), Compression fracture of body of thoracic vertebra ([facility]), Moderate malnutrition ([facility]), Osteoporosis, and PAD (peripheral artery disease) ([facility]). Past Surgical History: has a past surgical history that includes Kyphosis surgery (12/11/2022). Assessment Performance deficits / Impairments: Decreased functional mobility ;Decreased ADL status;Decreased strength;Decreased safe awareness;Decreased cognition;Decreased fine motor control;Decreased high-level IADLs;Decreased balance;Decreased coordination;Decreased endurance Assessment: Pt currently limited in performing ADL tasks due to above noted deficits, most significantly decreased activity tolerance and decreased cognition/safety awareness. Throughout session this date, pt requiring mod A for functional transfers and min A for functional mobility with use of RW; pt requiring min A to mod A during ADL performance. Pt to benefit from continued therapy services while hospitalized to maximize pt's safety and independence in performing functional tasks. Pt would be unsafe to return to prior living arrangements at this time, strict 24hr supervision/assistance and continued skilled therapy services recommended at discharge. Prognosis: Good Decision Making: Medium Complexity REQUIRES OT FOLLOW-UP: Yes Activity Tolerance Activity Tolerance: Patient limited by fatigue;Treatment limited secondary to decreased cognition;Patient limited by pain Safety Devices Type of Devices: Call light within reach;Chair alarm in place;Nurse notified;Left in chair Restraints Restraints Initially in Place: No Plan Occupational Therapy Plan Times Per Week: 5-6x/wk Current Treatment Recommendations: Strengthening, Balance training, Functional mobility training, Endurance training, Patient/Caregiver education & training, Equipment evaluation, education, & procurement, Home management training, Self-Care / ADL, Safety education & training, Coordination training Restrictions Restrictions/Precautions Restrictions/Precautions: Fall Risk Required Braces or Orthoses?: No Position Activity Restriction Spinal Precautions: No Bending, No Lifting, No Twisting Other position/activity restrictions: S/p T10, T11, L3 kyphoplasty on 12/11/[address] Mustafa. Mobilize as tolerated per orthosx. Up with assistance. Subjective General Patient assessed for rehabilitation services?: Yes Family / Caregiver Present: No General Comment Comments: RN ok'd for therapy this AM. Pt agreeable to participate in session and cooperative however pleasantly confused throughout. Pt denies any pain at rest however reports chest pain/back pain with activity however does not quantify; assisted pt to reposition/increase activity. Pt with 4L O2 in place via nasal cannula. Social/Functional History Social/Functional History Lives With: Daughter Type of Home: Mobile home Home Layout: One level Home Access: Stairs to enter without rails Entrance Stairs - Number of Steps: 4 Bathroom Shower/Tub: Walk-in shower Bathroom Toilet: Standard Bathroom Equipment: None Bathroom Accessibility: Accessible Home Equipment: None Has the patient had two or more falls in the past year or any fall with injury in the past year?: Yes Receives Help From: Family (Pt reports supportive dtr) ADL Assistance: Independent Homemaking Assistance: Independent Homemaking Responsibilities: Yes (pt reports IADL tasks able to be shared with or completed by dtr) Ambulation Assistance: Independent (pt self reports wall/furniture walking) Transfer Assistance: Independent Active Marketing Program Coordinator: Yes Patient's Marketing Program Coordinator Info: Daughter Mode of Transportation: Car Occupation: Retired Objective Balance Sitting: (SBA- static, min A- dynamic) Standing: (min A- static, mod A- dynamic) Functional Mobility Overall Level of Assistance: Moderate assistance (Pt performed functional mobility to/from bathroom with min A-mod A and use of RW; pt unsteady throughout with 2x LOB; increased time/effort to perform as pt with slow pace/quick to fatigue, increased back/chest pain with activity, and decreased cognition) Interventions: Safety awareness training;Tactile cues;Verbal cues (Mod verbal/tactile cues for RW mngt/navigation, safety awareness, initiation/sequencing, problem solving, and attention to task) Assistive Device: Walker, rolling Toilet Transfers Toilet - Technique: Ambulating (with use of RW) Equipment Used: Standard toilet (with use of grab bars) Toilet Transfer: Moderate assistance AROM: Within functional limits (BUE) Strength: Grossly decreased, non-functional (BUE grossly 3+/5) Coordination: Generally decreased, functional (BUE FMC/GMC- decreased speed/accuracy) Sensation: Impaired (Pt reports chronic numbness/tingling to BLE at baseline) ADL Feeding: Setup;Increased time to complete Grooming: Increased time to complete;Verbal cueing;Minimal assistance UE Bathing: Increased time to complete;Verbal cueing;Moderate assistance LE Bathing: Increased time to complete;Verbal cueing;Moderate assistance UE Dressing: Increased time to complete;Verbal cueing;Moderate assistance LE Dressing: Increased time to complete;Verbal cueing;Moderate assistance (pt able to bring ankle over knees for figure four technique however pt is unable to manipulate socks over toes due to decreased BUE strength/coordination, decreased cognition, and decreased activity tolerance) Toileting: Increased time to complete;Moderate assistance (mod A for toilet transfer with use of grab bars, mod A for standing balance with unilateral support on RW/grab bar to perform LB clothing mngt and bottom hygiene) Bed mobility Supine to Sit: Contact guard assistance Sit to Supine: (Pt retired up to chair at end of session) Scooting: Minimal assistance Bed Mobility Comments: Mod verbal/tactile cues for initiation/sequencing/safety awareness and problem solving; increased time/effort to perform as pt with slow pace/quick to fatigue and with decreased cognition Transfers Sit to stand: Moderate assistance Stand to sit: Minimal assistance Transfer Comments: Mod verbal/tactile cues for proper hand placement/initiation/sequencing/s afety awareness with use of RW; increased time/effort to perform Vision Vision: Impaired Vision Exceptions: Wears glasses for distance Hearing Hearing: Exceptions to WFL Hearing Exceptions: Hard of hearing/hearing concerns Cognition Overall Cognitive Status: Exceptions Arousal/Alertness: Delayed responses to stimuli Following Commands: Follows one step commands with increased time;Follows one step commands with repetition Attention Span: Attends with cues to redirect Safety Judgement: Decreased awareness of need for assistance Problem Solving: Assistance required to generate solutions;Assistance required to implement solutions;Assistance required to identify errors made Insights: Decreased awareness of deficits Initiation: Requires cues for some Sequencing: Requires cues for some Orientation Overall Orientation Status: Within Functional Limits Orientation Level: Oriented X4 Education Given To: Patient Education Provided: Role of Therapy;Plan of Care;Precautions;Transfer Training;Energy Conservation;Fall Prevention Strategies;Equipment (Activity Promotion, Safety Awareness/Fall Prevention, Bed Mobility Techniques- No Bending/Lifting/Twisting, Safety with Transfers/RW Mngt, ADL Techniques, Pursed Lip Breathing Techniques) Education Method: Demonstration;Verbal Barriers to Learning: Cognition;Hearing Education Outcome: Verbalized understanding;Continued education needed Hand Dominance Hand Dominance: Right AM-PAC Score AM-PAC Inpatient Daily Activity Raw Score: 15 (12/12/22956) AM-PAC Inpatient ADL T-Scale Score : 34.69 (12/12/22956) ADL Inpatient CMS 0-100% Score: 56.46 (12/12/22956) ADL Inpatient [facility] G-Code Modifier : CK (12/12/22956) Goals Short Term Goals Time Frame for Short Term Goals: 14 visits Short Term Goal 1: Pt will perform grooming/UB ADL tasks with mod IND using AE/DME PRN Short Term Goal 2: Pt will perform toileting tasks/LB ADL tasks with SBA using AE/DME PRN Short Term Goal 3: Pt will perform functional transfers/functional mobility with mod IND using least restrictive AD Short Term Goal 4: Pt will independently demo good safety awareness during engagement in all functional tasks Short Term Goal 5: Pt will demo 5+ minutes standing tolerance with use of least restrictive AD for increased participation in ADL tasks Therapy Time Individual Concurrent Group Co-treatment Time In 0832 Time Out 0909 Minutes 37 Time Coded Treatment Minutes: 10 Kalani Keene OTR/L Images from the original note were not included. [facility] Office: [phone] Aditya Zapata DO, Teo Espitia DO, Haroon Killian DO, Italo Sanabria DO, Martínez Julio MD, Grecia Fox MD, Cooper Mitchell MD, Annita Argueta MD, Kapil oJnes MD, Darrel Tejada MD, Hamilton Redmond DO, Barney Mcclelland MD, Megan Harper DO, Era Garcia MD, Thomas Chang MD, Tim Zapata DO, Kenya Garduno MD, Brian Lai MD, Sanya Rojas DO, Alissa Pulido MD, Larissa Moses MD, Nicolasa Yeh MD, Clara Calles MD, Moustapha Gillespie DO, Augustus Pak MD, No Walton CNP, Kendra Ramirez CNP, Aviva Barnett CNP, Hamzah Hartman CNP, Yudith Shell, KIRTI, Karissa Nguyen CNP, Julissa Landis CNP, Genet Vega CNP, Keri Dietz CNP, Shirley Helton CNP, Deuce Guthrie PA-C, Anabelle Mccoy, LICENSED MENTAL HEALTH COUNSELOR, Aparna Bryant, CAD PROGRAMMER, Rebekah Duran, CAD PROGRAMMER [facility] IN-PATIENT SERVICE [facility] Progress Note 12/11/2022 1:46 PM Name: Rebekah Moore Acct: [id number] Room: [facility] RM/NONE IP Day: 2 Admit Date: 12/08/2022 8:59 PM PCP: No primary care provider on file. Code Status: Full Code Subjective: Patient was seen and examined at bedside this AM. She reports feeling okay and is without complaint. Orthopedic surgery following; plan for kyphoplasty today. Medications: Allergies: No Known Allergies Current Meds: Scheduled Meds: sodium chloride flush 5-40 mL IntraVENous 2 times per day bupivacaine-EPINEPHrine PF sodium chloride flush 5-40 mL IntraVENous 2 times per day ceFAZolin furosemide 40 mg IntraVENous BID sodium chloride flush 5-40 mL IntraVENous 2 times per day enoxaparin 40 mg SubCUTAneous Daily digoxin 0.125 mg Oral Daily metoprolol succinate 25 mg Oral Daily sacubitril-valsartan 1 tablet Oral BID Continuous Infusions: lactated ringers IV soln sodium chloride sodium chloride sodium chloride PRN Meds: lidocaine 1 % injection, sodium chloride flush, sodium chloride, sodium chloride flush, sodium chloride, morphine, HYDROmorphone, oxyCODONE OR oxyCODONE, ondansetron, metoclopramide, diphenhydrAMINE, hydrALAZINE, sodium chloride flush, sodium chloride, [Held by provider] potassium chloride OR [Held by provider] potassium alternative oral replacement OR [Held by provider] potassium chloride, [Held by provider] magnesium sulfate, ondansetron OR ondansetron, polyethylene glycol, acetaminophen OR acetaminophen, HYDROcodone 5 mg - acetaminophen OR HYDROcodone 5 mg - acetaminophen Data: Vitals: BP 113/80 Pulse 92 Temp 97 F (36.1 C) (Infrared) Resp 17 Ht 5' 4 (1.626 m) Wt 112 lb 7 oz (51 kg) SpO2 93% BMI 19.30 kg/m Temp (24hrs), Av.4 F (36.3 C), Min:97 F (36.1 C), Max:97.5 F (36.4 C) No results for input(s): POCGLU in the last 72 hours. I/O (24Hr): Intake/Output Summary (Last 24 hours) at 12/11/2022 1346 Last data filed at 12/11/2022 1309 Gross per 24 hour Intake 1050 ml Output 400 ml Net 650 ml Labs: Hematology: Recent Labs 12/10/22 0504 INR 1.2 Chemistry: Recent Labs 12/10/22 0504 NA 143 K 3.8 CL 104 CO2 31 GLUCOSE 121* BUN 24* CREATININE 0.99* ANIONGAP 8* LABGLOM 56* CALCIUM 8.4* TROPHS 35* No results for input(s): PROT, LABALBU, LABA1C, V0AKMEO, Z7ESRTE, FT4, TSH, AST, ALT, LDH, GGT, ALKPHOS, LABGGT, BILITOT, BILIDIR, AMMONIA, AMYLASE, LIPASE, LACTATE, CHOL, HDL, LDLCHOLESTEROL, CHOLHDLRATIO, TRIG, VLDL, VMY75DH, PHENYTOIN, PHENYF, URICACID, POCGLU in the last 72 hours. ABG:No results found for: POCPH, PHART, PH, POCPCO2, KOM5EIG, PCO2, POCPO2, PO2ART, PO2, POCHCO3, YWH3NKT, HCO3, NBEA, PBEA, BEART, BE, THGBART, THB, OPT2RSV, THVP0JLT, J3MWKQVD, O2SAT, FIO2 No results found for: SPECIAL No results found for: CULTURE Radiology: XR LUMBAR SPINE (2-3 VIEWS) Result Date: 12/08/2022 1. Age-indeterminate compression fractures of the L1 and L2 superior endplates. Compression deformities at T10 and T11 are favored to be chronic. Consider further seen with MRI or CT. 2. Severe bony demineralization partially limits evaluation for fractures. 3. Moderate lumbar spine degenerative changes associated with moderate levoscoliosis. CT LUMBAR SPINE WO CONTRAST Result Date: 12/09/2022 1. Subacute appearing fractures involving the T11 inferior endplate and the superior endplates of L3 and L4. Consider MRI if needed for confirmation. 2. Chronic appearing fractures involving the superior endplates of L1 and L2, likely newer at L2. 3. Bony demineralization consistent with osteoporosis given the above findings. 4. Moderate to severe lumbar spine degenerative changes associated with moderate levoscoliosis. 5. Findings suggestive of volume overload include moderate to large right pleural effusion, trace left pleural effusion, at least trace pericardial effusion, potential for at least trace ascites, and at least mild anasarca. Physical Examination: General appearance: alert, cooperative and no distress Mental Status: oriented to person, place and time and normal affect Lungs: clear to auscultation bilaterally, normal effort Heart: regular rate and rhythm, no murmur Abdomen: soft, nontender, nondistended, normal bowel sounds, no masses, hepatomegaly, splenomegaly Extremities: 1+ pitting edema appreciated in bilateral lower extremities. Skin: no gross lesions, rashes, induration Assessment: Hospital Problems Last Modified POA * (Principal) Fracture of lumbar spine without cord injury, closed, initial encounter ([facility]) 12/09/2022 Yes Pleural effusion, right 12/09/2022 Yes Atrial fibrillation with rapid ventricular response ([facility]) 12/09/2022 Yes Anasarca 12/09/2022 Yes Plan: T11 compression fracture -CT lumbar spine showing subacute appearing fractures in the T11 inferior endplate as well as L3 and L4 endplates -MRI thoracic and lumbar spine showing L1 and L2 compression fractures -Orthopedic surgery following; plan for kyphoplasty today Right pleural effusion -Secondary to underlying HFrEF -Echocardiogram showing reduced EF of 40% -IV furosemide 40 mg bid -Patient is currently on 2 L nasal cannula Atrial fibrillation -Chronic -Continue home Eliquis -Continue home digoxin and metoprolol HFrEF -Currently in acute exacerbation -Lasix as above Medical Decision Making: Veronica Chang MD 12/11/2022 1:46 PM Cardiology note: Asked to comment on patient's risk from a cardiovascular standpoint for upcoming vertebral augmentation Patient normally follows with [facility] Previous cardiac catheterization was in 2014 at which time she had an acute SC involving the right coronary artery with subsequent percutaneous intervention to that vessel. At present asymptomatic from a cardiovascular standpoint. Given the nature of her surgical intervention she is felt to be a moderate risk from a cardiovascular standpoint and should proceed accordingly. Current echo: Summary Normal left ventricle size with reduced function. Garay's biplane estimated EF of 40%. Visually LVEF 30-35%, global hypokinesis. Mild concentric left ventricular hypertrophy. Left atrium is severely dilated. Right atrium is severely dilated . Reduced right ventricle function. Sclerotic tri-leaflet AV. Trivial aortic insufficiency. Posterior mitral annular calcification. Thickened mitral scott leaflets. Severe Eccentric mitral regurgitation, posteriorly directed, with coanda. Normal tricuspid valve structure and function. Moderate tricuspid regurgitation. Estimated right ventricular systolic pressure is 36 mmHg. Dilated IVC at 2.1 with collapse. RAP of 8 mmHg. Echocardiogram is essentially unchanged from a previous study completed at [facility] on September 26, 2021. Electrocardiogram shows atrial fibrillation right bundle branch block pattern. This is unchanged from previous tracings as well. Would resume anticoagulation as soon is it is felt safe to do so from a surgical standpoint. Post discharge she should follow-up with [facility]. Progress Note Patient: Rebekah Moore Date of : 1935 87 y.o. female Subjective: Patient seen and examined in pre-operative area this morning. No new complaints or concerns per patient this morning. No acute issues overnight per nursing. Denies: fever/chills, CP, SOB, or numbness/tingling in extremities. Re-discussed procedure and imaging findings. Objective: Vitals: 12/11/22 0800 BP: 109/66 Pulse: 89 Resp: 16 Temp: 97.5 F (36.4 C) SpO2: 95% Gen: NAD, cooperative, lying comfortably supine in bed CV: distal pulses 2+, +pedal edema Resp: equal chest rise bilaterally, no audible wheezes, no accessory muscle use MSK TTP thoracolumbar Increased back pain with any movement in bed LE Able to perform SLR supine in bed with back pain Gross motor intact 5/5 TA/EHL/GSC Sensation intact to light touch L2-S1 bilaterally No clonus Recent Labs 12/10/22 0504 INR 1.2 NA 143 K 3.8 BUN 24* CREATININE 0.99* GLUCOSE 121* Meds: See rec for complete list Impression: Plan: 87 y.o. female with multiple subacute and chronic compression fractures, acute T10, T11, and L3 -To OR today for vertebral augmentation T10, T11, and L3 -NPO since midnight -Informed consent will be obtained and operative site marked -Ancef child monitor to OR -IM and pulmonology cleared; Echo reviewed per anesthesia and okay to proceed -May mobilize as tolerated post-operatively. Avoid excessive bending, lifting, and twisting (BLT). -Pain control -PT/OT -Okay from orthopedic standpoint for discharge home later this evening if back pain tolerable and cleared for DC by primary team -Follow up in office 2 weeks post-operatively Deuce Hollis DO Orthopedic Spine Surgery 11:06 AM 12/11/2022 Patient is of an acceptable risk level to proceed with kyphoplasty from internal medicine standpoint (RCRI Class II risk) if pre-operative EKG is unchanged from prior. Images from the original note were not included. Occupational Therapy [facility] Occupational Therapy Not Seen Note DATE: 12/11/2022 NAME: Rebekah Moore : 1935 Patient not seen this date for Occupational Therapy due to: Surgery/Procedure: Pt pending kyphoplasty this date with orthosx Next Scheduled Treatment: Will check back 12/12/2022 Images from the original note were not included. Physical Therapy Physical Therapy Cancel Note DATE: 12/11/2022 NAME: Rebekah Moore : 1935 Patient not seen this date for Physical Therapy due to: Surgery/Procedure: hypoplasty today at noon [employer] spoke with Sury on med surg unit, informed her that pt's surgery has been rescheduled for noon on 12/11/2022. Also informed caller that surgeon wants patient to eat today & NPO at midnight. Caller verbalized an understanding. [employer] spoke with RASHIDA Armijo, for report. [employer] Handler informed that pt has an active order for an echocardiogram d/t pleural effusion & was waiting for it to be performed & would need cardiac clearance. States pt was in MRI when tech came to perform test. Surgery lead, Alaina, notified. Dr. Upton notified for clarification of orders for fluoro. Dr. Chang notified that MRI results back. Patient returns back from MRI. Images from the original note were not included. [facility] Office: [phone] Aditya Zapata DO, Teo Espitia DO, Haroon Killian DO, Italo Sanabria DO, Martínez Julio MD, Grecia Fox MD, Cooper Mitchell MD, Annita Argueta MD, Kapil Jones MD, Darrel Tejada MD, Hamilton Redmond DO, Barney Mcclelland MD, Megan Harper DO, Era Garcia MD, Thomas Chang MD, Tim Zapata DO, Kenya Garduno MD, Brian Lai MD, Sanya Rojas DO, Alissa Pulido MD, Larissa Moses MD, Nicolasa Yeh MD, Clara Calles MD, Moustapha Gillespie DO, Augustus Pak MD, No Walton CNP, Kendra Ramirez CNP, Aviva Barnett CNP, Hamzah Hartman, CORNELIUS, Yudith Shell, KIRTI, Karissa Nguyen, CORNELIUS, Julissa Landis, CAD PROGRAMMER, Genet Vega, CAD PROGRAMMER, Keri Dietz, CAD PROGRAMMER, Shirley Helton CNP, Deuce Guthrie PA-C, Anabelle Mccoy, LICENSED MENTAL HEALTH COUNSELOR, Aparna Bryant, CORNELIUS, Rebekah Duran, CORNELIUS [facility] IN-PATIENT SERVICE [facility] Progress Note 12/10/2022 11:07 AM Name: Rebekah Moore Acct: [id number] Room: 324/324-01 Day: 1 Admit Date: 12/08/2022 8:59 PM PCP: No primary care provider on file. Code Status: Full Code Subjective: Patient was seen and examined at bedside this AM. She reports feeling okay but continues to endorse low back pain. MRI cervical and thoracic spine pending. Tentative plan for kyphoplasty today. Medications: Allergies: No Known Allergies Current Meds: Scheduled Meds: sodium chloride flush 5-40 mL IntraVENous 2 times per day enoxaparin 40 mg SubCUTAneous Daily furosemide 20 mg IntraVENous BID digoxin 0.125 mg Oral Daily metoprolol succinate 25 mg Oral Daily sacubitril-valsartan 1 tablet Oral BID Continuous Infusions: sodium chloride PRN Meds: sodium chloride flush, sodium chloride, [Held by provider] potassium chloride OR [Held by provider] potassium alternative oral replacement OR [Held by provider] potassium chloride, [Held by provider] magnesium sulfate, ondansetron OR ondansetron, polyethylene glycol, acetaminophen OR acetaminophen, HYDROcodone 5 mg - acetaminophen OR HYDROcodone 5 mg - acetaminophen Data: Vitals: BP 94/64 Pulse 72 Temp 97.5 F (36.4 C) (Oral) Resp 18 Ht 5' 4 (1.626 m) Wt 116 lb 2.9 oz (52.7 kg) SpO2 96% BMI 19.94 kg/m Temp (24hrs), Av.5 F (36.4 C), Min:97.3 F (36.3 C), Max:97.5 F (36.4 C) No results for input(s): POCGLU in the last 72 hours. I/O (24Hr): Intake/Output Summary (Last 24 hours) at 12/10/2022 1107 Last data filed at 12/10/2022 0510 Gross per 24 hour Intake -- Output 200 ml Net -200 ml Labs: Hematology: Recent Labs 12/10/22 0504 INR 1.2 Chemistry: Recent Labs 12/10/22 0504 NA 143 K 3.8 CL 104 CO2 31 GLUCOSE 121* BUN 24* CREATININE 0.99* ANIONGAP 8* LABGLOM 56* CALCIUM 8.4* TROPHS 35* No results for input(s): PROT, LABALBU, LABA1C, N3NOKNJ, I3UNAIX, FT4, TSH, AST, ALT, LDH, GGT, ALKPHOS, LABGGT, BILITOT, BILIDIR, AMMONIA, AMYLASE, LIPASE, LACTATE, CHOL, HDL, LDLCHOLESTEROL, CHOLHDLRATIO, TRIG, VLDL, RYG21LY, PHENYTOIN, PHENYF, URICACID, POCGLU in the last 72 hours. ABG:No results found for: POCPH, PHART, PH, POCPCO2, SON6PMG, PCO2, POCPO2, PO2ART, PO2, POCHCO3, IFM2TRL, HCO3, NBEA, PBEA, BEART, BE, THGBART, THB, EDI7LGF, BQHB8XCI, F8GLYNFR, O2SAT, FIO2 No results found for: SPECIAL No results found for: CULTURE Radiology: XR LUMBAR SPINE (2-3 VIEWS) Result Date: 12/08/2022 1. Age-indeterminate compression fractures of the L1 and L2 superior endplates. Compression deformities at T10 and T11 are favored to be chronic. Consider further seen with MRI or CT. 2. Severe bony demineralization partially limits evaluation for fractures. 3. Moderate lumbar spine degenerative changes associated with moderate levoscoliosis. CT LUMBAR SPINE WO CONTRAST Result Date: 12/09/2022 1. Subacute appearing fractures involving the T11 inferior endplate and the superior endplates of L3 and L4. Consider MRI if needed for confirmation. 2. Chronic appearing fractures involving the superior endplates of L1 and L2, likely newer at L2. 3. Bony demineralization consistent with osteoporosis given the above findings. 4. Moderate to severe lumbar spine degenerative changes associated with moderate levoscoliosis. 5. Findings suggestive of volume overload include moderate to large right pleural effusion, trace left pleural effusion, at least trace pericardial effusion, potential for at least trace ascites, and at least mild anasarca. Physical Examination: General appearance: alert, cooperative and no distress Mental Status: oriented to person, place and time and normal affect Lungs: clear to auscultation bilaterally, normal effort Heart: regular rate and rhythm, no murmur Abdomen: soft, nontender, nondistended, normal bowel sounds, no masses, hepatomegaly, splenomegaly Extremities: 1+ pitting edema appreciated in bilateral lower extremities. Skin: no gross lesions, rashes, induration Assessment: Hospital Problems Last Modified POA * (Principal) Fracture of lumbar spine without cord injury, closed, initial encounter ([facility]) 12/09/2022 Yes Pleural effusion, right 12/09/2022 Yes Atrial fibrillation with rapid ventricular response ([facility]) 12/09/2022 Yes Anasarca 12/09/2022 Yes Plan: T11 compression fracture -CT lumbar spine showing subacute appearing fractures in the T11 inferior endplate as well as L3 and L4 endplates -MRI thoracic and lumbar spine pending -Orthopedic surgery following; plan for possible kyphoplasty today Right pleural effusion -Secondary to underlying HFrEF -Echocardiogram pending -IV furosemide 40 mg bid -Patient is currently on 2 L nasal cannula Atrial fibrillation -Chronic -Continue home Eliquis -Continue home digoxin and metoprolol HFrEF -Currently in acute exacerbation -Lasix as above Medical Decision Making: Veronica Chang MD 12/10/2022 11:07 AM Patient down to MRI per bed MRI screening form completed. Images from the original note were not included. Physical Therapy Physical Therapy Cancel Note DATE: 12/10/2022 NAME: Rebekah Moore : 1935 Patient not seen this date for Physical Therapy due to: Awaiting thoracic/lumbar MRI and orthosx POC following MRI results. Will check back in PM as time allows or 12/11 Images from the original note were not included. Occupational Therapy [facility] Occupational Therapy Not Seen Note DATE: 12/10/2022 NAME: Rebekah Moore : 1935 Patient not seen this date for Occupational Therapy due to: Other: Awaiting thoracic/lumbar MRI and orthosx POC following MRI results Next Scheduled Treatment: Will check back PM as able or 12/11/2022 documented in this encounter [facility] Work Phone: Clinical Note 12-13-2022 Note Date & Type Note Facility 12-13-2022 Note PROCEDURE: ULTRASOUNDGUIDED RIGHT THORACENTESIS 12/13/2022 HISTORY: ORDERING SYSTEM PROVIDED HISTORY: Right-sided pleural effusion TECHNOLOGIST PROVIDED HISTORY: Right-sided pleural effusion Which side should the procedure be performed?->Right TECHNIQUE: This procedure was performed by Emmett Steele PA-C under indirect supervision of Dr. Rawls. A detailed explanation of the procedure including but not limited to risks and benefits of the procedure were discussed. The posterior chest was prepped and draped using universal protocol and maximum sterile barrier technique. All elements of maximal sterile barrier technique, including cap, mask, sterile gown, sterile gloves, sterile drapes, hand hygiene and 2% chlorhexidine for cutaneous antisepsis were followed. While the patient was seated upright, after localizing, marking and anesthetizing the posterior right lower chest with one percent lidocaine. A 5 [place] Yueh needle was advanced into the pleural effusion under ultrasound guidence. A saved sonographic image demonstrates safe tract access. The catheter was advanced and the needle was removed. The catheter was connected to a Vacutainer bottle and 800 mL of clear yellow fluidwere drained. Postprocedural ultrasound demonstrated no residual fluid. The catheter was removed and the site was dressed appropriately. A sample was sent for laboratory analysis. Estimated blood loss was minimum. The patient tolerated the procedure well and left the department in stable condition. FINDINGS: A total of 800 mL clear yellow fluid was removed. [facility] Clinical Note 12-13-2022 Note Date & Type Note Facility 12-13-2022 Note PROCEDURE: ULTRASOUNDGUIDED RIGHT THORACENTESIS 12/13/2022 HISTORY: ORDERING SYSTEM PROVIDED HISTORY: Right-sided pleural effusion TECHNOLOGIST PROVIDED HISTORY: Right-sided pleural effusion Which side should the procedure be performed?->Right TECHNIQUE: This procedure was performed by Emmett Steele PA-C under indirect supervision of Dr. Rawls. A detailed explanation of the procedure including but not limited to risks and benefits of the procedure were discussed. The posterior chest was prepped and draped using universal protocol and maximum sterile barrier technique. All elements of maximal sterile barrier technique, including cap, mask, sterile gown, sterile gloves, sterile drapes, hand hygiene and 2% chlorhexidine for cutaneous antisepsis were followed. While the patient was seated upright, after localizing, marking and anesthetizing the posterior right lower chest with one percent lidocaine. A 5 [place] Yueh needle was advanced into the pleural effusion under ultrasound guidence. A saved sonographic image demonstrates safe tract access. The catheter was advanced and the needle was removed. The catheter was connected to a Vacutainer bottle and 800 mL of clear yellow fluidwere drained. Postprocedural ultrasound demonstrated no residual fluid. The catheter was removed and the site was dressed appropriately. A sample was sent for laboratory analysis. Estimated blood loss was minimum. The patient tolerated the procedure well and left the department in stable condition. FINDINGS: A total of 800 mL clear yellow fluid was removed. [facility] History of Present illness Narrative 12-13-2022 Nolvia Phipps RN - 12/13/2022 12:00 PM EDT Note Date & Type Note Facility 12-13-2022 History of Present illness Narrative Pt arrives to room with EMS for rt therapeutic thoracentesis JR Megha and CM RT to bedside Site prepped and draped Access obtained on right 800ml of clear dark yellow fluid removed Tolerated well Return to [facility] with transport documented in this encounter [facility] [employer] Phone: Evaluation note Note Date & Type Note Facility Evaluation note Diagnosis Fracture of lumbar spine without cord injury, closed, initial encounter (HCC)- Primary Lumbar compression fracture, sequela Pleural effusion, right Unspecified pleural effusion Atrial fibrillation with rapid ventricular response (HCC) Atrial fibrillation Anasarca Edema documented in this encounter [employer] Phone: Advance Directives No Advanced Directives Records FoundLatest Code Status on File Code Status Date Activated Date Inactivated Comments Full Code 12/09/2022 6:00 AM Latest Code Status on File Code Status Date Activated Date Inactivated Comments Full Code 12/09/2022 6:00 AM 12/14/2022 6:44 PM Summary Purpose Family History No Family History Records FoundNo Family History Records Found Additional Source Comments Reason for Visit (unrecogniz ed section and content) Reason Comments Fall Fell backwards in th e bathroom while trying to have a BM, struck upper/mid back on door. C/o rib pain and pain with movement Ordered Prescriptions (unrec ognized section and content) Prescription Sig Dispensed Refills Start Date End Da te midodrine (PROAMATINE) 10 MG tablet Take 0.5 tablets by mouth 3 times daily 90 tablet 3 12/14/2022 Scheduled Active and Recently Administ ered Medications (unrecognized section and content) Medication Order 12/12/2022 12/13/2022 12/14/2022 apixaban (ELIQUIS) tablet 2.5 mg 2.5 mg, Oral, 2 TIMES DAILY, First dose on Sat12/12/22 at 0900, Until Discontinued, Indication of Use: A Fib/A Flutter, ANTICOAGULANT 0611 (Held by provider - Provider: Thomas Chang MD - Reason: Other - Comment: Possible thora)0900 (Automatically Held - Provider: Thomas Cahng MD)2100 (Automatically Held - Provider: Thomas Chang MD) 0900 (Automatically Held - Provider: Thomas Chang MD)2100 (Automatically Held - Provider: Thomas Chang MD) 0900 (Not Given - Provider: Moustapha Middleton - Reason: Other - Comment: HELD)0911 (Unheld by provider - Provider: Thomas Chang MD)2100 (Due) digoxin (LANOXIN) tablet 0.125 mg 0.125 mg, Oral, DAILY, First dose on Sat12/10/22 at 0900, Until Discontinued 1011 (Given - Provider: Britney Mendosa RN) 0821 (Given - Provider: Andria Cm RN) 0905 (Given - Provider: Moustapha Middleton) furosemide (LASIX) injection 40 mg 40 mg, IntraVENous, 2 TIMES DAILY, First dose (after last modification) on Sat12/10/22 at 1800, Until Discontinued 1011 (Given - Provider: Britney Mendosa RN)1327 (Held by provider - Provider: Thomas Chang MD - Reason: Other - Comment: Hypotension)1800 (Automatically Held - Provider: Thomas Chang MD) 0636 (Unheld by provider - Provider: Thomas Chang MD)0821 (Given - Provider: Andria Cm, RASHIDA)1700 (Given - Provider: Andria Cm RN) 0905 (Given - Provider: Moustapha Middleton)1800 (Due) metoprolol succinate (TOPROL XL) extended release tablet 25 mg 25 mg, Oral, DAILY, First dose on Sat12/09/22 at 2200, Until Discontinued, Do not crush or chew. 1011 (Given - Provider: Britney Mendosa RN)1327 (Held by provider - Provider: Thomas Chang MD - Reason: Other) 0900 (Automatically Held - Provider: Thomas Chang MD) 0900 (Not Given - Provider: Moustapha Middleton - Reason: Other - Comment: HELD)0911 (Unheld by provider - Provider: Thomas Chang MD) midodrine (PROAMATINE) tablet 10 mg 10 mg, Oral, 3 TIMES DAILY WITH MEALS, First dose on Sat12/12/22 at 1230, Until Discontinued, Do not give after 1800 or within 4 hrs of bedtime. 1308 (Given - Provider: Britney Mendosa RN)1735 (Given - Provider: Britney Mendosa RN) 0821 (Given - Provider: Andria Cm RN)1200 (Not Given - Provider: Andria Cm RN - Reason: Transfer to a Procedural area)1700 (Given - Provider: Andria Cm RN) 0905 (Given - Provider: Moustapha Middleton)1228 (Held - Provider: Moustapha Middleton - Reason: Order parameters not met - Comment: BP127/84)1700 (Due) sacubitril-valsartan (ENTRESTO) 24-26 MG per tablet 1 tablet 1 tablet, Oral, 2 TIMES DAILY, First dose on 12/09/22 at 2200, Until Discontinued 1011 (Given - Provider: Britney Mendosa RN)1327 (Held by provider - Provider: Thomas Chang MD - Reason: Other - Comment: Hypotension)2100 (Automatically Held - Provider: Thomas Chang MD) 0900 (Automatically Held - Provider: Thomas Chang MD)2100 (Automatically Held - Provider: Thomas Chang MD) 0900 (Not Given - Provider: Moustapha Middleton - Reason: Other - Comment: HELD)0911 (Unheld by provider - Provider: Thomas Chang MD)2100 (Due) sodium chloride flush 0.9 % injection 5-40 mL 5-40 mL, IntraVENous, EVERY 12 HOURS SCHEDULED (2 times per day), First dose on 12/09/22 at 0900, Until Discontinued, For Line Patency: Peripheral IV = 5 mL; Midline or Central Line = 10 mL/lumen. If following IV push medication, administer flush at same rate as the IV push. Flush volume is determined by type of infusion therapy being given. For non-viscous solutions use: Peripheral IV = 5 mL Midline or Central Line = 10 mL/lumen For viscous solutions (i.e. blood components, parenteral nutrition, contrast media, or after obtaining blood sample) use: Peripheral IV = 10 mL Midline or Central Line = 20 mL/lumen 1012 (Not Given - Provider: Britney Mendosa RN - Reason: Other)2103 (Given - Provider: Jimmy Dewitt RN) 0857 (Not Given - Provider: Andria Cm RN - Reason: Other - Comment: duplicate order)210 (Given - Provider: Jimmy Dewitt RN) 1004 (Not Given - Provider: Moustapha Middleton - Reason: Other)2100 (Due) sodium chloride flush 0.9 % injection 5-40 mL (CANCELED) 5-40 mL, IntraVENous, EVERY 12 HOURS SCHEDULED (2 times per day), First dose on Sat12/11/22 at 2100, Until Discontinued, For Line Patency: Peripheral IV = 5 mL; Midline or Central Line = 10 mL/lumen. If following IV push medication, administer flush at same rate as the IV push. Flush volume is determined by type of infusion therapy being given. For non-viscous solutions use: Peripheral IV = 5 mL Midline or Central Line = 10 mL/lumen For viscous solutions (i.e. blood components, parenteral nutrition, contrast media, or after obtaining blood sample) use: Peripheral IV = 10 mL Midline or Central Line = 20 mL/lumen, PACU only 1011 (Given - Provider: Britney Mendosa RN)2103 (Not Given - Provider: Jimmy Dewitt RN - Reason: Other - Comment: Duplicate order- 1 peripheral IV) 0823 (Given - Provider: Andria Cm RN) PRN Medication Order 12/12/2022 12/13/2022 12/14/2022 0.9 % sodium chloride infusion IntraVENous, at 5-250 mL/hr, PRN, if patient receiving piggyback infusions and maintenance fluids are not ordered OR KVO fluids to protect IV site / prevent frequent line interruptions/ long duration, Starting on Sat12/09/22 at 0805, For piggyback infusion, administer at same rate as piggyback for a total of 25 mL. Enter 25 mL into dose field and piggyback rate into rate field of order. If piggyback is infusing at a rate less than 100 mL/hr, enter 25 mL into dose field and 100 mL/hr into rate field of order. For KVO fluids, enter rate of 20 mL/hr or less into rate field of order. 0.9 % sodium chloride infusion IntraVENous, at 5-250 mL/hr, PRN, if patient receiving piggyback infusions and maintenance fluids are not ordered OR KVO fluids to protect IV site / prevent frequent line interruptions/ long duration, Starting on Sat12/11/22 at 0919, For piggyback infusion, administer at same rate as piggyback for a total of 25 mL. Enter 25 mL into dose field and piggyback rate into rate field of order. If piggyback is infusing at a rate less than 100 mL/hr, enter 25 mL into dose field and 100 mL/hr into rate field of order. For KVO fluids, enter rate of 20 mL/hr or less into rate field of order., Pre-op (day of surgery) 0.9 % sodium chloride infusion 25 mL, IntraVENous, at 100 mL/hr, PRN, If patient receiving piggyback infusions without ordered maintenance IV fluids or with frequent/long duration piggyback infusions, Starting on Sat12/11/22 at 1323, Administer at the same rate as the piggyback being infused., PACU only acetaminophen (TYLENOL) suppository 650 mg(Linked Group 1) 650 mg, Rectal, EVERY 6 HOURS PRN, Starting on Sat12/09/22 at 0712, Until Discontinued, Pain Mild (1-3), Fever, For temp greater than 100.4 F (38 C), Administer if oral route cannot be used. acetaminophen (TYLENOL) tablet 650 mg(Linked Group 1) 650 mg, Oral, EVERY 6 HOURS PRN, Starting on Sat12/09/22 at 0712, Until Discontinued, Pain Mild (1-3), Fever, For temp greater than 100.4 F (38 C), Maximum dose of acetaminophen is 4000 mg from all sources in 24 hours. hydrALAZINE (APRESOLINE) injection 10 mg 10 mg, IntraVENous, EVERY 15 MIN PRN, 2 doses, Starting on Sat12/11/22 at 1323, Until Discontinued, High Blood Pressure, for SBP greater than 180 mmHg for 2 consecutive measurements taken from different sites, Inform provider if SBP is still greater than 180 mmHg 10 minutes after second antihypertensive dose is administered., PACU only HYDROcodone-acetaminophen (NORCO) 5-325 MG per tablet 1 tablet(Linked Group 2) 1 tablet, Oral, EVERY 4 HOURS PRN, Starting on Sat12/09/22 at 0600, Until Discontinued, Pain Moderate (4-6), Maximum dose of acetaminophen is 4000 mg from all sources in 24 hours. 0201 (Given - Provider: Jimmy Dewitt RN) 0105 (See Alternative - Provider: Jimmy Dewitt RN) HYDROcodone-acetaminophen (NORCO) 5-325 MG per tablet 2 tablet(Linked Group 2) 2 tablet, Oral, EVERY 4 HOURS PRN, Starting on Sat12/09/22 at 0600, Until Discontinued, Pain Severe (7-10), Maximum dose of acetaminophen is 4000 mg from all sources in 24 hours. 0201 (See Alternative - Provider: Jimmy Dewitt RN) 0105 (Given - Provider: Jimmy Dewitt RN) HYDROmorphone (DILAUDID) injection 0.5 mg 0.5 mg, IntraVENous, EVERY 5 MIN PRN, 4 doses, Starting on Sat12/11/22 at 1323, Until Discontinued, Pain Severe (7-10), Phase I - Initial therapy for severe pain., PACU only magnesium sulfate 1000 mg in dextrose 5% 100 mL IVPB 1,000 mg, IntraVENous, at 100 mL/hr, Administer over 1 Hours, PRN, Other, Per IV Magnesium Replacement Protocol, Starting on Sat12/09/22 at 0805, Mg Lab Replacement Action 1.4-1.6 1 gram IVPB x 2 doses (2 gram Total) 1.0-1.3 1 gram IVPB x 4 doses (4 gram Total) <1.0 CALL PHYSICIAN and 1 gram IVPB x 4 doses (4 gram Total) Infuse at 1 gram/hr Repeat Mag level next AM Protocol not for use in Patients with CrCl<30ml/min morphine (PF) injection 1 mg 1 mg, IntraVENous, EVERY 5 MIN PRN, 4 doses, Starting on Sat12/11/22 at 1323, Until Discontinued, Pain Moderate (4-6), Phase I - Initial therapy for moderate pain., PACU only ondansetron (ZOFRAN) injection 4 mg(Linked Group 3) 4 mg, IntraVENous, EVERY 6 HOURS PRN, Starting on Sat12/09/22 at 0600, Until Discontinued, Nausea, Vomiting, Administer if oral route cannot be used. ondansetron (ZOFRAN-ODT) disintegrating tablet 4 mg(Linked Group 3) 4 mg, Oral, EVERY 8 HOURS PRN, Starting on Sat12/09/22 at 0600, Until Discontinued, Nausea, Vomiting polyethylene glycol (GLYCOLAX) packet 17 g 17 g, Oral, DAILY PRN, Starting on Sat12/09/22 at 0805, Until Discontinued, Constipation, First line therapy for constipation potassium bicarb-citric acid (EFFER-K) effervescent tablet 40 mEq(Linked Group 4) 40 mEq, Oral, PRN, Starting on Sat12/09/22 at 0805, Until Discontinued, Per Potassium Replacement Protocol, Administer as alternative if patient unable to tolerate oral tablet. K Lab Replacement Action 3.1 to 3.5 40 mEq ORAL x 1 Under 3.1 Refer to IV replacement protocol Recheck K level in AM. Protocol not for use in patients with CrCl less than 30 mL/min. Do not chew or crush. Dissolve flavored tablets completely in 3 to 4 ounces of cold water; unflavored tablets may be dissolved in 3 to 4 ounces of cold juice. Patient to sip slowly over a 5 to 10 minute period. May further dilute if GI adverse effects occur. potassium chloride (KLOR-CON M) extended release tablet 40 mEq(Linked Group 4) 40 mEq, Oral, PRN, Starting on Sat12/09/22 at 0805, Until Discontinued, Potassium Replacement, May give oral solution if patient unable to tolerate tablet. K Lab Replacement Action 3.1-3.5 40 mEq ORAL x 1 2.7-3.0 Refer to IV replacement orders < 2.7 Refer to IV replacement orders Recheck K level in AM. Not for use in patients with CrCl less than 30 mL/min. potassium chloride 10 mEq/100 mL IVPB (Peripheral Line)(Linked Group 4) 10 mEq, IntraVENous, PRN, Starting on Sat12/09/22 at 0805, Until Discontinued, at 100 mL/hr, Potassium Replacement, K Lab Replacement Action 2.7-3.0 10 mEq IVPB x 6 doses (60 mEq Total) < 2.7 CALL PHYSICIAN and 10 mEq IVPB x 6 doses (60 mEq Total) Infuse at 10 mEq/hr Repeat Potassium lab 1 hour after final administration. Not for use in patients with CrCl less than 30 mL/min. sodium chloride flush 0.9 % injection 10 mL 10 mL, IntraVENous, PRN, Starting on Sat12/09/22 at 0805, Until Discontinued, Line Care, After every IV line use sodium chloride flush 0.9 % injection 5-40 mL 5-40 mL, IntraVENous, PRN, Starting on Sat12/11/22 at 1323, Until Discontinued, Line Care, After every IV line use, For Line Patency: Peripheral IV = 5 mL; Midline or Central Line = 10 mL/lumen. If following IV push medication, administer flush at same rate as the IV push. Flush volume is determined by type of infusion therapy being given. For non-viscous solutions use: Peripheral IV = 5 mL Midline or Central Line = 10 mL/lumen For viscous solutions (i.e. blood components, parenteral nutrition, contrast media, or after obtaining blood sample) use: Peripheral IV = 10 mL Midline or Central Line = 20 mL/lumen, PACU only Linked Groups Order Group 1: acetaminophen (TYLENOL) tablet 650 mgJump to med 650 mg, Oral, EVERY 6 HOURS PRN, Starting on Sat12/09/22 at 0712, Until Discontinued, Pain Mild (1-3), Fever, For temp greater than 100.4 F (38 C)
Maximum dose of acetaminophen is 4000 mg from all sources in 24 hours.
Or acetaminophen (TYLENOL) suppository 650 mgJump to med 650 mg, Rectal, EVERY 6 HOURS PRN, Starting on Sat12/09/22 at 0712, Until Discontinued, Pain Mild (1-3), Fever, For temp greater than 100.4 F (38 C)
Administer if oral route cannot be used.
Group 2: HYDROcodone-acetaminophen (NORCO) 5-325 MG per tablet 1 tabletJump to med 1 tablet, Oral, EVERY 4 HOURS PRN, Starting on Sat12/09/22 at 0600, Until Discontinued, Pain Moderate (4-6)
Maximum dose of acetaminophen is 4000 mg from all sources in 24 hours.
Or HYDROcodone-acetaminophen (NORCO) 5-325 MG per tablet 2 tabletJump to med 2 tablet, Oral, EVERY 4 HOURS PRN, Starting on Sat12/09/22 at 0600, Until Discontinued, Pain Severe (7-10)
Maximum dose of acetaminophen is 4000 mg from all sources in 24 hours.
Group 3: ondansetron (ZOFRAN-ODT) disintegrating tablet 4 mgJump to med 4 mg, Oral, EVERY 8 HOURS PRN, Starting on Sat12/09/22 at 0600, Until Discontinued, Nausea, Vomiting Or ondansetron (ZOFRAN) injection 4 mgJump to med 4 mg, IntraVENous, EVERY 6 HOURS PRN, Starting on 12/09/22 at 0600, Until Discontinued, Nausea, Vomiting
Administer if oral route cannot be used.
Group 4: potassium chloride (KLOR-CON M) extended release tablet 40 mEqJump to med 40 mEq, Oral, PRN, Starting on 12/09/22 at 0805, Until Discontinued, Potassium Replacement
May give oral solution if patient unable to tolerate tablet. K Lab Replacement Action 3.1-3.5 40 mEq ORAL x 1 & nbsp; 2.7-3.0 Refer to IV replacement orders < 2.7 Refer to IV replacement orders Recheck K level in AM. Not for use in patients with CrCl less than 30 mL/min.
Or potassium bicarb-citric acid (EFFER-K) effervescent tablet 40 mEqJump to med 40 mEq, Oral, PRN, Starting on 12/09/22 at 0805, Until Discontinued, Per Potassium Replacement Protocol
Administer as alternative if patient unable to tolerate oral tablet. K Lab Repla cemen t Action 3.1 to 3.5 40 mEq ORAL x 1 Under 3.1 Refer to IV replacement protocol Recheck K level in AM. Protocol not for use in patients with CrCl less than 30 mL/min. Do not chew or crush. Dissolve flavored tablets completely in 3 to 4 ounces of cold water; unflavored tablets may be dissolved in 3 to 4 ounces of cold juice. Patient to sip slowly over a 5 to 10 minute period. May further dilute if GI adverse effects occur.
Or potassium chloride 10 mEq/100 mL IVPB (Peripheral Line)Jump to med 10 mEq, IntraVENous, PRN, Starting on 12/09/22 at 0805, Until Discontinued, at 100 mL/hr, Potassium Replacement
K Lab Replacement Action 2.7-3.0 10 mEq IVPB x 6 doses (60 mEq Total) < 2.7 CALL PHYSICIAN and 10 mEq IVPB x 6 doses (60 mEq Total) Infuse at 10 mEq/hr Repeat Potassium lab 1 hour after final administration. Not for use in patients with CrCl less than 30 mL/min.
Care Teams (unrecognized sec tion and content) Senior Financial Accountant Relationship Specialty Start Date End Date Hawa Garzon [address] [place] [address] PCP - General J[employer] Builder 12/11/22 Senior Financial Accountant Relationship Specialty Start Date End Date Hawa Garzon [address] [place] [id number] PCP - General Jig And Fixture Builder 12/11/22 INFORMATION SOURCE (unrecogn ized section and content) DATE CREATED AUTHOR 01/22/2023 [facility] DATE CREATED AUTHOR 'S VEDA LOWE 02/12/2023 [facility] FOR RECORDS PERTAINING TO PATIENTS WHO ARE OR HAVE BEEN ENROLLED IN A CHEMICAL DEPENDENCY/SUBSTANCEABUSE PROGRAM, SOME INFORMATION MAY BE OMITTED. This clinical summary was aggregated from multiple sources. Caution should be exercised in using it in the provision of clinical care. This summary normalizes information from multiple sources, and as a consequence, information in this document may materially change the coding, format and clinical context of patient data. In addition, data may be omitted in some cases. CLINICAL DECISIONS SHOULD BE BASED ON THE PRIMARY CLINICAL RECORDS. [facility] [employer] [facility]. provides no warranty or guarantee of the accuracy or completeness of information in this document.
[2023-09-07 19:51] LABS: Prothrombin Time 32.7 sec (9.0-11.6)
== END 2023-09-07 19:08 | disposition home or self-care (01) ==
LOC: LAB 19:07
DX: I48.20 Chronic atrial fibrillation, unspecified (principal)
CPT/HCPCS: 36415; 85610

== ENCOUNTER 2023-11-22 20:18 | Outpatient (REF) | payer MEDICARE, SELFPAY ==
--- OUTSIDE RECORDS SUMMARY | 2023-11-22 20:24 | XMS_ITS | CCD ---
Author Organization [facility] Care Team Providers Care Bioinformaticist Name Role Phone Favio Garzonuscarol Primary Care Provider [phone] ZHEN SOLO Referring Unavailable ORTEGA GONZALEZ I Primary Care Unavailable ALAMINIvanna FOLUSO Primary Care Unavailable ALAMINA, FOLUSO Primary Care Unavailable EDIE HALL Attending Unavailable ALAMINA, FOLUSO Primary Care Unavailable HAMZAH LUJAN Attending Unavailable ELOY SULLIVAN Consulting Unavailable THOMAS CHANG Attending Unavailable THOMAS CHANG Admitting Unavailable ALAMINIvanna FOLUSO Primary Care Unavailable CARLOS ALBERTO BEST Consulting Unavailable TYRESE CLEMONS Consulting Unavailable HAMZAH BRISCOE Consulting Unavailable Alamelissa MCLAIN-CORNELIUS Foluscarol Primary Care Provider Medications Current Medications Medication Drug Class(es) Dates [...] not crush or chew. polyethylene glycol 3350 60967 mg powder for oral solution (1 source) [...] frequent line interruptions/ long duration, Starting on [place] 12/09/22 at 0805 For piggyback infusion, administer at [...] (2 times per day), First dose on [place] 12/09/22 at 0900, Until Discontinued For Line Patency: [...] needed 10 mL, IntraVENous, PRN, Starting on [place] 12/09/22 at 0805, Until Discontinued, Line Care, After every IV line use Problems Active Problems Problem Classification Problem Date Documented Da te Episodic/Chronic Abdominal hernia (1 source) Umbilical hernia without obstruction or gangrene; Translations: [Umbilical hernia without obstruction or gangrene] Onset: 3 Episodic Acute myocardial infarction (1 source) Myocardial infarction; Translations: [Acute myocardial infarction, unspecified] Onset: 1 07-21-2021 Chronic Cardiac dysrhythmias (4 sources) Atrial fibrillation with rapid ventricular response; Translations: [Unspecified atrial fibrillation] Onset: 1 Chronic Congestive heart failure; nonhypertensive (4 sources) Heart failure, unspecified; Translations: [Chronic systolic heart failure] Onset: 1 07-08-2023 Chronic Coronary atherosclerosis and other heart disease (2 sources) Coronary arteriosclerosis; Translations: [Atherosclerotic heart disease of [place] coronary artery without angina pectoris] Onset: 1 07-08-2023 Chronic E Codes: Fall (1 source) Fall; Translations: [Unspecified fall, initial encounter] Onset: 3 07-09-2023 Episodic Fracture of neck of femur (hip) (2 sources) Closed intertrochanteric fracture of right femur; Translations: [Displaced intertrochanteric fracture of right femur, initial encounter for closed fracture] Onset: 3 07-09-2023 Episodic Genitourinary symptoms and ill-defined conditions (1 source) Retention of urine, unspecified; Translations: [Retention of urine, unspecified] Onset: 3 Episodic Heart valve disorders (2 sources) Non-rheumatic mitral regurgitation ; Translations: [Nonrheumatic mitral (valve) insufficiency] Onset: 1 07-19-2021 Chronic Nutritional deficiencies (1 source) Malnutrition (calorie); Translations: [Moderate protein-calorie malnutrition] Onset: 3 11-06-2022 Chronic Other fractures (1 source) Compression fracture of lumbar spine; Translations: [Wedge compression fracture of unspecified lumbar vertebra, sequela] Episodic Other fractures (3 sources) Closed fracture lumbar vertebra; Translations: [Unspecified fracture of unspecified lumbar vertebra, initial encounter for closed fracture] Onset: 3 Episodic Other fractures (1 source) Other specified fracture of right pubis, initial encounter for closed fracture; Translations: [Other specified fracture of right pubis, initial encounter for closed fracture] Onset: 3 Episodic Other fractures (1 source) Unspecified fracture of sacrum, initial encounter for closed fracture; Translations: [Unspecified fracture of sacrum, initial encounter for closed fracture] Onset: 3 Episodic Other fractures (1 source) Wedge compression fracture of unspecified lumbar vertebra, sequela; Translations: [Wedge compression fracture of unspecified lumbar vertebra, sequela] Onset: 3 Episodic Other gastrointestinal disorders (1 source) Constipation, unspecified; Translations: [Constipation, unspecified] Onset: 3 Episodic Pleurisy; pneumothorax; pulmonary collapse (3 sources) Pleural effusion; Translations: [Pleural effusion, not elsewhere classified] Onset: 3 Episodic Residual codes; unclassified (3 sources) Edema, generalized; Translations: [Generalized edema] Onset: 3 Episodic Residual codes; unclassified (1 source) Pain, unspecified; Translations: [Pain, unspecified] Onset: 3 Episodic Past or Other Problems Problem Classification Problem Date Documented Da te Episodic/Chronic Mood disorders (1 source) Mood disorders Onset: 11-13-2022 11-13-2022 Other screening for suspected conditions (not mental disorders or infectious disease) (2 sources) Other specified abnormal findings of blood chemistry; Translations: [Raised cardiac enzyme or marker] Onset: 07-21-2021 07-21-2021 Episodic Residual codes; unclassified (1 source) Tobacco user; Translations: [Tobacco use] Onset: 07-19-2021 07-19-2021 Episodic Residual codes; unclassified (1 source) Bilateral lower limb edema; Translations: [Localized edema] Onset: 08-16-2022 08-16-2022 Episodic Respiratory failure; insufficiency; arrest (adult) (1 source) Acute respiratory failure; Translations: [Acute respiratory failure with hypoxia] Onset: 09-19-2021 Resolved: 09-19-2021 09-19-2021 Episodic Skin and subcutaneous tissue infections (1 source) Cellulitis of lower leg; Translations: [Cellulitis of left lower limb] Onset: 08-16-2022 08-16-2022 Episodic Spondylosis; intervertebral disc disorders; other back problems (1 source) Chronic low back pain; Translations: [Lumbago with sciatica, left side] Onset: 07-21-2021 07-21-2021 Episodic Urinary tract infections (2 sources) Urinary tract infection, site not specified; Translations: [Acute cystitis] Onset: 07-21-2021 07-21-2021 Episodic Results Test Name Value Interpretation Reference Range Facility Prothrombin Timeon 4 INR Coag (PPP) [Relative time] 1.5 {INR} Normal [facility] Comment on above: Order Comment: CALL doctor [id number] tel. [phone], Fax results to [facility] Ass Patient is at: [address] [place] [address] CALL doctor [id number] tel. [phone], Fax results to [facility] Ass Patient is at: [address] [place] [address] Performed By: #### P T #### [facility] [address] [place] [id number] PT Coag (PPP) [Time] 18.2 s Critically high 12.3-14.9 [facility] Comment on above: Order Comment: CALL doctor [id number] tel. [phone], Fax results to [facility] Ass Patient is at: [address] [place] [address] CALL doctor [id number] tel. [phone], Fax results to [facility] Ass Patient is at: [address] [address] Performed By: #### P T #### [facility] [address] [place] [address] XR PELVIS (MIN 3 VIEWS)on XR PELVIS [...] Zhen Solo DO 02/12/23 Final result Normal [facility] CT ABDOMEN PELVIS WO YAZMIN Ton 01-25-2023 CT ABDOMEN PELVIS WO CONTRAST [...] Abdifatah Ac MD 01/24/23 Final result Normal [facility] CT HEAD WO CONTRASTon 2022 CT HEAD [...] Abdifatah Ac MD 01/24/23 Final result Normal [facility] CT LUMBAR SPINE WO CONTRASTo n 01-25-2023 [...] Thiago Rosenthal MD 01/24/23 Final result Normal [facility] BASIC METABOLIC PANELon 06-0 Anion gap [Moles/Vol] 9 mmol/L Normal 7-20 [facility] Comment on above: Performed By: #### L [id number] #### [facility] (BEAKER) [address] [place] [address] Calcium [Mass/Vol] 8.5 mg/dL Low 8.6-10.3 [facility] Comment on above: Performed By: #### L [id number] #### [facility] ([facility]) [address] [place] [address] Chloride [Moles/Vol] 106 mmol/L Normal 98-107 [facility] Comment on above: Performed By: #### L [id number] #### [facility] ([facility]) [address] [place] [address] CO2 [Moles/Vol] 28 mmol/L Normal 21-31 [facility] Comment on above: Performed By: #### L [id number] #### [facility] ([facility]) [address] [place] [address] Creatinine [Mass/Vol] 0.64 mg/dL Normal 0.60-1.20 [facility] Comment on above: Performed By: #### L [id number] #### [facility] ([facility]) [address] [place] [address] GLOMERULAR FILTRATION RATE ML/MIN/1.73 SQ M.PREDICTED 86.0 mL/min/1.73m*2 Normal >60.0 [facility] Comment on above: Result Comment: [facility]???s estimated glomerular filtration rate (eGFR) will [...] individuals. Performed By: #### L [id number] #### [facility] ([facility]) [address] [place] [address] Glucose [Mass/Vol] 78 mg/dL Normal 70-100 [facility] Comment on above: Performed By: #### L [id number] #### [facility] ([facility]) [address] [place] [address] Potassium [Moles/Vol] 4.5 mmol/L Normal 3.5-5.1 [facility] Comment on above: Performed By: #### L [id number] #### [facility] ([facility]) [address] [place] [address] Sodium [Moles/Vol] 138 mmol/L Normal 136-145 [facility] Comment on above: Performed By: #### L [id number] #### [facility] ([facility]) [address] [place] [address] Urea nitrogen [Mass/Vol] 17 mg/dL Normal 7-25 [facility] Comment on above: Performed By: #### L [id number] #### [facility] ([facility]) [address] [place] [address] UREA NITROGEN/CREATININE (MASS RATIO) IN SER/PLAS 26.6 Normal [facility] Comment on above: Performed By: #### L [id number] #### [facility] ([facility]) [address] [place] [address] CBCon 01-16-2023 Erythrocyte distribution width (RBC) [Ratio] 21.6 % High 11.5-15.0 [facility] Comment on above: Performed By: #### L [id number] #### [facility] ([facility]) [address] [place] [address] ERYTHROCYTE MEAN CORPUSCULAR HEMOGLOBIN CONCENTRATION (G/DL) BY AUTOMATED 30.9 g/dL Low 32.0-35.0 [facility] Comment on above: Performed By: #### L [id number] #### [facility] ([facility]) [address] [place] [address] Hematocrit (Bld) [Volume fraction] 37.6 % Normal 36.0-48.0 [facility] Comment on above: Performed By: #### L [id number] #### [facility] ([facility]) [address] [place] [address] Hemoglobin (Bld) [Mass/Vol] 11.6 g/dL Low 12.0-15.0 [facility] Comment on above: Performed By: #### L [id number] #### [facility] ([facility]) [address] [place] [address] MCH (RBC) [Entitic mass] 29.5 pg Normal 27.0-33.0 [facility] Comment on above: Performed By: #### L [id number] #### [facility] ([facility]) [address] [place] [address] MCV (RBC) [Entitic vol] 95.7 fL Normal 82.0-98.0 [facility] Comment on above: Performed By: #### L [id number] #### [facility] ([facility]) [address] [place] [address] PLATELETS (10*3/UL) IN BLOOD AUTOMATED COUNT 313 10*3/uL Normal 150-400 [facility] Comment on above: Performed By: #### L [id number] #### [facility] ([facility]) [address] [place] [address] RBC (Bld) [#/Vol] 3.93 10*6/uL Normal 3.80-5.00 [facility] Comment on above: Performed By: #### L [id number] #### [facility] ([facility]) [address] [place] [address] WBC (Bld) [#/Vol] 7.89 10*3/uL Normal 4.00-10.60 [facility] Comment on above: Performed By: #### L [id number] #### [facility] ([facility]) [address] [place] [address] URINALYSISon 01-15-2023 BILIRUBIN, TOTAL PRESENCE IN URINE Negative Normal Negative [facility] Comment on above: Order Comment: Micro scopics not performed on urines with negative chemical reactions unless requested on original order. Performed By: #### L [id number] #### [facility] ([facility]) [address] [place] [address] Clarity (U) Clear Normal Clear [facility] Comment on above: Order Comment: Micro scopics not performed on urines with negative chemical reactions unless requested on original order. Performed By: #### L [id number] #### [facility] ([facility]) [address] [place] [address] Color (U) Yellow Normal Yellow [facility] Comment on above: Order Comment: Micro scopics not performed on urines with negative chemical reactions unless requested on original order. Performed By: #### L [id number] #### [facility] ([facility]) [address] [place] [address] Glucose (U) [Mass/Vol] Negative Normal Negative [facility] Comment on above: Order Comment: Micro scopics not performed on urines with negative chemical reactions unless requested on original order. Performed By: #### L [id number] #### [facility] ([facility]) [address] [place] [address] HEMOGLOBIN PRESENCE IN URINE Negative Normal Negative [facility] Comment on above: Order Comment: Micro scopics not performed on urines with negative chemical reactions unless requested on original order. Performed By: #### L [id number] #### [facility] ([facility]) [address] [place] [address] Ketones Ql (U) Negative Normal Negative [facility] Comment on above: Order Comment: Micro scopics not performed on urines with negative chemical reactions unless requested on original order. Performed By: #### L [id number] #### [facility] ([facility]) [address] [place] [address] LEUKOCYTE ESTERASE PRESENCE IN URINE BY TEST STRIP Negative Normal Negative [facility] Comment on above: Order Comment: Micro scopics not performed on urines with negative chemical reactions unless requested on original order. Performed By: #### L [id number] #### [facility] ([facility]) [address] [place] [address] NITRITE PRESENCE IN URINE Negative Normal Negative [facility] Comment on above: Order Comment: Micro scopics not performed on urines with negative chemical reactions unless requested on original order. Performed By: #### L [id number] #### [facility] ([facility]) [address] [place] [address] pH (U) 7.0 [pH] Normal 5.0-8.0 [facility] Comment on above: Order Comment: Micro scopics not performed on urines with negative chemical reactions unless requested on original order. Performed By: #### L [id number] #### [facility] ([facility]) [address] [place] [address] Protein (U) [Mass/Vol] Negative Normal Negative [facility] Comment on above: Order Comment: Micro scopics not performed on urines with negative chemical reactions unless requested on original order. Performed By: #### L [id number] #### [facility] ([facility]) [address] [place] [address] Specific gravity (U) [Rel density] 1.013 Low 1.015-1.020 [facility] Comment on above: Order Comment: Micro scopics not performed on urines with negative chemical reactions unless requested on original order. Performed By: #### L [id number] #### [facility] ([facility]) [address] [place] [address] URINE CULTURE, ROUTINEon Ampicillin [Susc] >8 Resistant [facility] Comment on above: Performed By: #### L [id number] #### [facility] ([facility]) [address] [place] [address] DAPTOmycin [Susc] 2 ug/ml Susceptible [facility] Comment on above: Performed By: #### L [id number] #### [facility] ([facility]) [address] [place] [address] Linezolid [Susc] <=1 Susceptible [facility] Comment on above: Performed By: #### L [id number] #### [facility] ([facility]) [address] [place] [address] Vancomycin [Susc] >16 Resistant [facility] Comment on above: Performed By: #### L [id number] #### [facility] ([facility]) [address] [place] [address] B-TYPE NATRIURETIC PEPTIDEon 12-28-2022 Natriuretic peptide B (Bld) [Mass/Vol] 1447 pg/mL High 0-100 [facility] Comment on above: Performed By: #### L [id number] #### [facility] ([facility]) [address] [place] [address] BASIC METABOLIC PANELon 12-10 Anion gap [Moles/Vol] 23 mmol/L High 7-20 [facility] Comment on above: Performed By: #### L [id number] #### [facility] ([facility]) [address] [place] [address] Calcium [Mass/Vol] 8.1 mg/dL Low 8.6-10.3 [facility] Comment on above: Performed By: #### L [id number] #### [facility] ([facility]) [address] [place] [address] Chloride [Moles/Vol] 108 mmol/L High 98-107 [facility] Comment on above: Performed By: #### L [id number] #### [facility] ([facility]) [address] [place] [address] CO2 [Moles/Vol] 13 mmol/L Invalid Interpretation Code 21- [facility] Comment on above: Performed By: #### L [id number] #### [facility] ([facility]) [address] [place] [address] Creatinine [Mass/Vol] 0.86 mg/dL Normal 0.60-1.20 [facility] Comment on above: Performed By: #### L [id number] #### [facility] ([facility]) [address] [place] [address] GLOMERULAR FILTRATION RATE ML/MIN/1.73 SQ M.PREDICTED 65.8 mL/min/1.73m*2 Normal >60.0 [facility] Comment on above: Result Comment: [facility]???s estimated glomerular filtration rate (eGFR) will [...] individuals. Performed By: #### L [id number] #### [facility] ([facility]) [address] [place] [address] Glucose [Mass/Vol] 41 mg/dL Invalid Interpretation Code 70-100 [facility] Comment on above: Performed By: #### L [id number] #### [facility] ([facility]) [address] [place] [address] Potassium [Moles/Vol] 5.3 mmol/L High 3.5-5.1 [facility] Comment on above: Performed By: #### L [id number] #### [facility] ([facility]) [address] [place] [address] Sodium [Moles/Vol] 139 mmol/L Normal 136-145 [facility] Comment on above: Performed By: #### L [id number] #### [facility] ([facility]) [address] [place] [address] Urea nitrogen [Mass/Vol] 20 mg/dL Normal 7-25 [facility] Comment on above: Performed By: #### L [id number] #### [facility] ([facility]ER) [address] [place] [address] UREA NITROGEN/CREATININE (MASS RATIO) IN SER/PLAS 23.3 Normal [facility] Comment on above: Performed By: #### L [id number] #### [facility] ([facility]ER) [address] [place] [address] XR CHEST PORTABLEon 12-27-19 XR CHEST PORTABLE [...] Radha Rizo MD 12/25/22 Final result Normal [facility] B-TYPE NATRIURETIC PEPTIDEon 12-25-2022 Natriuretic peptide B (Bld) [Mass/Vol] 1854 pg/mL High 0-100 [facility] Comment on above: Performed By: #### L [id number] #### [facility] ([facility]ER) [address] [place] [address] BASIC METABOLIC PANELon 12-10 Anion gap [Moles/Vol] 15 mmol/L Normal 7-20 [facility] Comment on above: Performed By: #### L [id number] #### [facility] ([facility]ER) [address] [place] [address] Calcium [Mass/Vol] 8.0 mg/dL Low 8.6-10.3 [facility] Comment on above: Performed By: #### L [id number] #### [facility] ([facility]) [address] [place] [address] Chloride [Moles/Vol] 106 mmol/L Normal 98-107 [facility] Comment on above: Performed By: #### L [id number] #### [facility] ([facility]) [address] [place] [address] CO2 [Moles/Vol] 22 mmol/L Normal 21-31 [facility] Comment on above: Performed By: #### L [id number] #### [facility] ([facility]) [address] [place] [address] Creatinine [Mass/Vol] 0.77 mg/dL Normal 0.60-1.20 [facility] Comment on above: Performed By: #### L [id number] #### [facility] ([facility]) [address] [place] [address] GLOMERULAR FILTRATION RATE ML/MIN/1.73 SQ M.PREDICTED 75.1 mL/min/1.73m*2 Normal >60.0 [facility] Comment on above: Result Comment: [facility]???s estimated glomerular filtration rate (eGFR) will [...] individuals. Performed By: #### L [id number] #### [facility] ([facility]) [address] [place] [address] Glucose [Mass/Vol] 48 mg/dL Invalid Interpretation Code 70-100 [facility] Comment on above: Performed By: #### L [id number] #### [facility] ([facility]) [address] [place] [address] Potassium [Moles/Vol] 5.3 mmol/L High 3.5-5.1 [facility] Comment on above: Result Comment: M-CH EMISTRY SPECIMEN MODERATELY HEMOLYZED RESULTS MAY NOT BE ACCURATE Performed By: #### L [id number] #### [facility] ([facility]ER) [address] [place] [address] Sodium [Moles/Vol] 138 mmol/L Normal 136-145 [facility] Comment on above: Performed By: #### L [id number] #### [facility] ([facility]ER) [address] [place] [address] Urea nitrogen [Mass/Vol] 14 mg/dL Normal 7-25 [facility] Comment on above: Performed By: #### L [id number] #### [facility] ([facility]ER) [address] [place] [address] UREA NITROGEN/CREATININE (MASS RATIO) IN SER/PLAS 18.2 Normal [facility] Comment on above: Performed By: #### L [id number] #### [facility] (BE[facility]ER) [address] [place] [address] Basic Metabolic Profon 12-25 Anion gap [Moles/Vol] 12 mmol/L Normal 9-17 [facility] Comment on above: Performed By: #### U WILLY UAX #### [place] [id number] Battery Test Engineer: Paddy Juares MD Calcium [Mass/Vol] 8.4 mg/dL Low 8.6-10.[address] [facility] Comment on above: Performed By: #### Jonh AGUILERA UAX #### [facility] [id number] [place], [place] [id number] Battery Test Engineer: Paddy Juares MD Chloride [Moles/Vol] 103 mmol/L Normal 98-107 [facility] Comment on above: Performed By: #### U WILLY UAX #### [facility] [id number] [place], [place] [id number] Battery Test Engineer: Paddy Juares MD CO2 [Moles/Vol] 25 mmol/L Normal 20-[address] [facility] Comment on above: Performed By: #### U MICAO, UAX #### [place] [id number] Battery Test Engineer: Paddy Juares MD Creatinine [Mass/Vol] 0.72 mg/dL Normal 0.50-0.90 [facility] Comment on above: Performed By: #### U MICAO, UAX #### [place] [address] Battery Test Engineer: Paddy Juares MD GFR/1.73 sq M.predicted among non-blacks MDRD (S/P/Bld) [Vol rate/Area] mL/min/{1.73_m2} Normal >[address] [facility] Comment on above: Result Comment: These results [...] renal tubular secretion. Performed By: #### U MAILEO, UAX #### [place] [address] Battery Test Engineer: Paddy Juares MD Glucose [Mass/Vol] 79 mg/dL Normal 70-[address] [facility] Comment on above: Performed By: #### U MAILEO, UAX #### [place] [id number] Battery Test Engineer: Paddy Juares MD Potassium [Moles/Vol] 3.7 mmol/L Normal 3.7-5.3 [facility] Comment on above: Performed By: #### U MAILEO, UAX #### [place] [address] Battery Test Engineer: Paddy Juares MD Sodium [Moles/Vol] 140 mmol/L Normal 135-[address] [facility] Comment on above: Performed By: #### Jonh AGUILERA UAX #### [address] [address] Battery Test Engineer: Paddy Juares MD Urea nitrogen [Mass/Vol] 13 mg/dL Normal 8-[address] [facility] Comment on above: Performed By: #### U WILLY UAX #### [place] [id number] Battery Test Engineer: Paddy Juares MD Brain Natri. Peptideon 12-25 Natriuretic peptide B (Bld) [Mass/Vol] 8736 pg/mL High <[address] [facility] Comment on above: Result Comment: An age-independent cutoff point of 300 pg/ml has a 98% negative predictive value excluding acute heart failure. Performed By: #### Jonh AGUILERA UAX #### [place] [id number] Battery Test Engineer: Paddy Juares MD CBCon 12-25-2022 Hemoglobin (Bld) [Mass/Vol] 14.0 g/dL Normal 12.0-16.0 [facility] Comment on above: Performed By: #### L [id number] #### [facility] ([facility]) [address] [place] [address] Performed By: #### U WILLY UAX #### [address] [address] Battery Test Engineer: Paddy Juares MD Erythrocyte distribution width (RBC) [Ratio] 21.7 % High 11.5-15.0 [facility] Comment on above: Performed By: #### L [id number] #### [facility] ([facility]) [address] [place] [address] ERYTHROCYTE MEAN CORPUSCULAR HEMOGLOBIN CONCENTRATION (G/DL) BY AUTOMATED 31.1 g/dL Low 32.0-35.0 [facility] Comment on above: Performed By: #### L [id number] #### [facility] ([facility]) [address] [place] [address] Hematocrit (Bld) [Volume fraction] 45.0 % Normal 36.0-48.0 [facility] Comment on above: Performed By: #### L [id number] #### [facility] ([facility]) [address] [address] MCH (RBC) [Entitic mass] 28.9 pg Normal 27.0-33.0 [facility] Comment on above: Performed By: #### L [id number] #### [facility] ([facility]) [address] [place] [address] MCV (RBC) [Entitic vol] 92.8 fL Normal 82.0-98.0 [facility] Comment on above: Performed By: #### L [id number] #### [facility] ([facility]) [address] [place] [address] PLATELETS (10*3/UL) IN BLOOD AUTOMATED COUNT 327 10*3/uL Normal 150-400 [facility] Comment on above: Performed By: #### L [id number] #### [facility] ([facility]) [address] [place] [address] RBC (Bld) [#/Vol] 4.85 10*6/uL Normal 3.80-5.00 [facility] Comment on above: Performed By: #### L [id number] #### [facility] ([facility]) [address] [place] [address] WBC (Bld) [#/Vol] 9.86 10*3/uL Normal 4.00-10.60 [facility] Comment on above: Performed By: #### L [id number] #### [facility] ([facility]) [address] [place] [address] CBC with Diffon 12-25-2022 Abs. Basophil 0.00 k/uL Normal 0.0-0.[address] [facility] Comment on above: Performed By: #### U WILLY, UAX #### [place] [address] Battery Test Engineer: Paddy Juares MD Abs.Neutrophil (Seg) 9.63 k/uL High 1.8-7.7 [facility] Comment on above: Performed By: #### U WILLY UAX #### [place] [address] Battery Test Engineer: Paddy Juares MD Basophils/100 WBC (Bld) 0 % Normal 0-[address] [facility] Comment on above: Performed By: #### Jonh AGUILERA UAX #### [place] [address] Battery Test Engineer: Paddy Juares MD Eosinophils (Bld) [#/Vol] 0.00 10*3/uL Normal 0.0-0.[address] [facility] Comment on above: Performed By: #### Jonh AGUILERA UAX #### [place] [address] Battery Test Engineer: Paddy Juares MD Eosinophils/100 WBC (Bld) 0 % Low 1-[address] [facility] Comment on above: Performed By: #### U WILLY UAX #### [place] [address] Battery Test Engineer: Paddy Juares MD Lymphocytes (Bld) [#/Vol] 0.32 10*3/uL Low 1.0-4.[address] [facility] Comment on above: Performed By: #### Jonh AGUILERA UAX #### [place] [address] Battery Test Engineer: Paddy Juares MD Lymphocytes/100 WBC (Bld) 3 % Low 24-[address] [facility] Comment on above: Performed By: #### U MICAO, UAX #### [place] [address] Battery Test Engineer: Paddy Juares MD Monocytes (Bld) [#/Vol] 0.75 10*3/uL Normal 0.1-0.[address] [facility] Comment on above: Performed By: #### U MAILEO, UAX #### [place] [address] Battery Test Engineer: Paddy Juares MD Monocytes/100 WBC (Bld) 7 % Normal 1-[address] [facility] Comment on above: Performed By: #### U MAILEO, UAX #### [place] [address] Battery Test Engineer: Paddy Juares MD Morphology Juan Manuel (Bld) [Interp] ANISOCYTOSIS PRESENT Normal [facility] Comment on above: Performed By: #### U MAILEO, UAX #### [place] [address] Battery Test Engineer: Paddy Juares MD Neutrophil (Seg) 90 % High 36-66 [facility] Comment on above: Performed By: #### U MICAO, UAX #### [place] [address] Battery Test Engineer: Paddy Juares MD Erythrocyte distribution width (RBC) [Ratio] 23.0 % High 12.5-15.[address] [facility] Comment on above: Performed By: #### U MAILEO, UAX #### [place] [address] Battery Test Engineer: Paddy Juraes MD Hematocrit (Bld) [Volume fraction] 44.7 % Normal 36-[address] [facility] Comment on above: Performed By: #### U MAILEO, UAX #### [place] [address] Battery Test Engineer: Paddy Juares MD MCH (RBC) [Entitic mass] 29.1 pg Normal 26-[address] [facility] Comment on above: Performed By: #### U MAILEO, UAX #### [place] [address] Battery Test Engineer: Paddy Juares MD MCHC (RBC) [Mass/Vol] 31.3 g/dL Normal 31-37 [facility] Comment on above: Performed By: #### U WILLY, UAX #### [place] [address] Battery Test Engineer: Paddy Juares MD MCV (RBC) [Entitic vol] 92.9 fL Normal 80-[address] [facility] Comment on above: Performed By: #### U MAILEO, UAX #### [place] [address] Battery Test Engineer: Paddy Juares MD Platelet mean volume (Bld) [Entitic vol] 10.5 fL Normal 8.0-14.[address] [facility] Comment on above: Performed By: #### U MICAO, UAX #### [place] [address] Battery Test Engineer: Paddy Juares MD Platelets (Bld) [#/Vol] 289 10*3/uL Normal 140-[address] [facility] Comment on above: Performed By: #### U MICAO, UAX #### [address] [address] Battery Test Engineer: Paddy Juares MD RBC (Bld) [#/Vol] 4.81 10*6/uL Normal 4.0-5.[address] [facility] Comment on above: Performed By: #### U MICAO, UAX #### [address] [id number] Battery Test Engineer: Paddy Juares MD WBC (Bld) [#/Vol] 10.7 10*3/uL Normal 3.5-11.[address] [facility] Comment on above: Performed By: #### U MICAO, UAX #### [place] [address] Battery Test Engineer: Paddy Juares MD Specimen Rejectionon 023 Reason for rejection Unable to perform testing: Specimen quantity not sufficient. Normal [facility] Comment on above: Performed By: #### U MICAO, UAX #### [address] [address] Battery Test Engineer: Paddy Juares MD Source of sample .BLOOD Normal [facility] Comment on above: Performed By: #### U MICAO, UAX #### [address] [id number] Battery Test Engineer: Paddy Juares MD Test ordered BMP TROPI BNP [facility] Comment on above: Performed By: #### U MICAO, UAX #### [address] [id number] Battery Test Engineer: Paddy Juares MD Troponinon 12-25-2022 Troponin, High Sens 51 ng/L High 0-[address] [facility] Comment on above: Result Comment: High Sensitivity Troponin values cannot be compared with other Troponin methodologies. Performed By: #### T ROPI #### [address] [address] Battery Test Engineer: Paddy Juares MD Troponin, High Sens 50 ng/L High 0-[address] [facility] Comment on above: Result Comment: High Sensitivity Troponin values cannot be compared with other Troponin methodologies. Performed By: #### U MICAO, UAX #### [place] [address] Battery Test Engineer: Paddy Juares MD UA w/Reflex Cultureon 2022 Bilirubin, SemiQt,Ur Negative Normal NEG [facility] Comment on above: Performed By: #### U MICAO, UAX #### [place] [address] Battery Test Engineer: Paddy uJares MD Blood, Urine Negative Normal NEG [facility] Comment on above: Performed By: #### U MICAO, UAX #### [place] [address] Battery Test Engineer: Paddy Juares MD Clarity (U) Clear Normal CLEAR [facility] Comment on above: Performed By: #### U MICAO, UAX #### [place] [address] Battery Test Engineer: Paddy Juares MD Color (U) Yellow Normal YEL [facility] Comment on above: Performed By: #### U MICAO, UAX #### [place] [address] Battery Test Engineer: Paddy Juares MD Glucose Ql (U) Negative Normal NEG [facility] Comment on above: Performed By: #### U MICAO, UAX #### [place] [address] Battery Test Engineer: Paddy Juares MD Ketones Ql (U) Negative Normal NEG [facility] Comment on above: Performed By: #### U MICAO, UAX #### [place] [address] Battery Test Engineer: Paddy Juares MD Leukocyte esterase Test strip Ql (U) Negative Normal NEG [facility] Comment on above: Performed By: #### U MICAO, UAX #### [place] [address] Battery Test Engineer: Paddy Juares MD Nitrite,Ur Positive Abnormal NEG [facility] Comment on above: Performed By: #### U MICAO, UAX #### [place] [address] Battery Test Engineer: Paddy Juares MD PH,Ur 8.0 Normal 5.0-8.[address] [facility] Comment on above: Performed By: #### U MICAO, UAX #### [place] [address] Battery Test Engineer: Paddy Juares MD Protein Ql (U) Negative Normal NEG [facility] Comment on above: Performed By: #### U MICAO, UAX #### [place] [address] Battery Test Engineer: Paddy Juares MD Spec. [place],Ur 1.015 Normal 1.005-1.030 [facility] Comment on above: Performed By: #### U MICAO, UAX #### [facility] [address] [place], [place] [id number] Battery Test Engineer: Paddy Juares MD Urobilinogen,Ur Normal Normal NORM [facility] Comment on above: Performed By: #### U MICAO, UAX #### [facility] [address] [place], [place] [id number] Battery Test Engineer: Paddy Juares MD URINALYSISon 12-25-2022 BILIRUBIN, TOTAL PRESENCE IN URINE Negative Normal Negative [facility] Comment on above: Order Comment: Micro scopics not performed on urines with negative chemical reactions unless requested on original order. Performed By: #### L [id number] #### [facility] ([facility]) [address] [place] [address] Clarity (U) Clear Normal Clear [facility] Comment on above: Order Comment: Micro scopics not performed on urines with negative chemical reactions unless requested on original order. Performed By: #### L [id number] #### [facility] ([facility]) [address] [facility] [address] Color (U) Yellow Normal Yellow [facility] Comment on above: Order Comment: Micro scopics not performed on urines with negative chemical reactions unless requested on original order. Performed By: #### L [id number] #### [facility] ([facility]) [address] [place] [address] Glucose (U) [Mass/Vol] Negative Normal Negative [facility] Comment on above: Order Comment: Micro scopics not performed on urines with negative chemical reactions unless requested on original order. Performed By: #### L [id number] #### [facility] ([facility]) [address] [place] [address] HEMOGLOBIN PRESENCE IN URINE Negative Normal Negative [facility] Comment on above: Order Comment: Micro scopics not performed on urines with negative chemical reactions unless requested on original order. Performed By: #### L [id number] #### [facility] [address] [place] [address] Ketones Ql (U) Negative Normal Negative [facility] Comment on above: Order Comment: Micro scopics not performed on urines with negative chemical reactions unless requested on original order. Performed By: #### L [id number] #### [facility] ([facility]) [address] [place] [address] LEUKOCYTE ESTERASE PRESENCE IN URINE BY TEST STRIP Negative Normal Negative [facility] Comment on above: Order Comment: Micro scopics not performed on urines with negative chemical reactions unless requested on original order. Performed By: #### L [id number] #### [facility] ([facility]) [address] [place] [address] NITRITE PRESENCE IN URINE Negative Normal Negative [facility] Comment on above: Order Comment: Micro scopics not performed on urines with negative chemical reactions unless requested on original order. Performed By: #### L [id number] #### [facility] ([facility]) [address] [place] [address] pH (U) 8.0 [pH] Normal 5.0-8.0 [facility] Comment on above: Order Comment: Micro scopics not performed on urines with negative chemical reactions unless requested on original order. Performed By: #### L [id number] #### [facility] ([facility]) [address] [place] [address] Protein (U) [Mass/Vol] Negative Normal Negative [facility] Comment on above: Order Comment: Micro scopics not performed on urines with negative chemical reactions unless requested on original order. Performed By: #### L [id number] #### [facility] ([facility]) [address] [place] [address] Specific gravity (U) [Rel density] 1.009 Low 1.015-1.020 [facility] Comment on above: Order Comment: Micro scopics not performed on urines with negative chemical reactions unless requested on original order. Performed By: #### L [id number] #### [facility] ([facility]) [address] [facility] [place] [address] URINE CULTURE, ROUTINEon Bacteria identified Cx Nom (U) <10,000 CFU/ML No Significant Growth Normal [facility] Comment on above: Performed By: #### L [id number] #### [facility] ([facility]) [address] [facility] [place] [address] Urinalysis,Microon 3 Bacteria MANY Abnormal NONE [facility] Comment on above: Performed By: #### U MAILEO, UAX #### [address] [id number] Battery Test Engineer: Paddy Juares MD Epithelial cells LM Ql (Urine sed) 0 TO 2 Normal 0-[address] [facility] Comment on above: Performed By: #### U WILLY, UAX #### [place] [address] Battery Test Engineer: aPddy Juares MD Other Observations Utilizing a urinalysis as the only screening method to exclude a potential Abnormal NREQ [facility] Comment on above: Result Comment: urop athogen can be unreliable in many patient populations. Rapid screening tests are less sensitive than culture and if UTI is a clinical possibility, culture should be considered despite a negative urinalysis. Performed By: #### U WILLY, UAX #### [place] [address] Battery Test Engineer: Paddy Juares MD Urine RBC's 0 TO 2 Normal 0-[address] [facility] Comment on above: Performed By: #### U WILLY, UAX #### [address] [id number] Battery Test Engineer: Paddy Juares MD Urine WBC's 0 TO 2 Normal 0-[address] [facility] Comment on above: Performed By: #### U WILLY, UAX #### [facility] [address] [place] [id number] Battery Test Engineer: Paddy Juares MD BASIC METABOLIC PANELon 05-0 Anion gap [Moles/Vol] 9 mmol/L Normal 7-20 [facility] Comment on above: Performed By: #### L [id number] #### [facility] [address] [place] [address] Calcium [Mass/Vol] 7.5 mg/dL Low 8.6-10.3 [facility] Comment on above: Performed By: #### L [id number] #### [facility] ([facility]) [address] [place] [address] Chloride [Moles/Vol] 101 mmol/L Normal 98-107 [facility] Comment on above: Performed By: #### L [id number] #### [facility] ([facility]) [address] [place] [address] CO2 [Moles/Vol] 36 mmol/L High 21-31 [facility] Comment on above: Performed By: #### L [id number] #### [facility] ([facility]) [address] [place] [address] Creatinine [Mass/Vol] 0.83 mg/dL Normal 0.60-1.20 [facility] Comment on above: Performed By: #### L [id number] #### [facility] ([facility]) [address] [place] [address] GLOMERULAR FILTRATION RATE ML/MIN/1.73 SQ M.PREDICTED 68.6 mL/min/1.73m*2 Normal >60.0 [facility] Comment on above: Result Comment: [facility]???s estimated glomerular filtration rate (eGFR) will [...] individuals. Performed By: #### L [id number] #### [facility] ([facility]) [address] [place] [address] Glucose [Mass/Vol] 136 mg/dL High 70-100 [facility] Comment on above: Performed By: #### L [id number] #### [facility] ([facility]) [address] [place] [address] Potassium [Moles/Vol] 3.3 mmol/L Low 3.5-5.1 [facility] Comment on above: Performed By: #### L [id number] #### [facility] ([facility]) [address] [place] [address] Sodium [Moles/Vol] 143 mmol/L Normal 136-145 [facility] Comment on above: Performed By: #### L [id number] #### [facility] ([facility]) [address] [place] [address] Urea nitrogen [Mass/Vol] 17 mg/dL Normal 7-25 [facility] Comment on above: Performed By: #### L [id number] #### [facility] [address] [place] [address] UREA NITROGEN/CREATININE (MASS RATIO) IN SER/PLAS 20.5 Normal [facility] Comment on above: Performed By: #### L [id number] #### [facility] ([facility]) [address] [place] [address] CBCon 12-17-2022 Erythrocyte distribution width (RBC) [Ratio] 20.5 % High 11.5-15.0 [facility] Comment on above: Performed By: #### L [id number] #### [facility] [address] [place] [address] ERYTHROCYTE MEAN CORPUSCULAR HEMOGLOBIN CONCENTRATION (G/DL) BY AUTOMATED 29.4 g/dL Low 32.0-35.0 [facility] Comment on above: Performed By: #### L [id number] #### [facility] ([facility]) [address] [place] [address] Hematocrit (Bld) [Volume fraction] 43.6 % Normal 36.0-48.0 [facility] Comment on above: Performed By: #### L [id number] #### [facility] ([facility]) [address] [place] [address] Hemoglobin (Bld) [Mass/Vol] 12.8 g/dL Normal 12.0-15.0 [facility] Comment on above: Performed By: #### L [id number] #### [facility] ([facility]) [address] [place] [address] MCH (RBC) [Entitic mass] 28.1 pg Normal 27.0-33.0 [facility] Comment on above: Performed By: #### L [id number] #### [facility] ([facility]) [address] [place] [address] MCV (RBC) [Entitic vol] 95.6 fL Normal 82.0-98.0 [facility] Comment on above: Performed By: #### L [id number] #### [facility] ([facility]) [address] [place] [address] PLATELETS (10*3/UL) IN BLOOD AUTOMATED COUNT 210 10*3/uL Normal 150-400 [facility] Comment on above: Performed By: #### L [id number] #### [facility] ([facility]) [address] [place] [address] RBC (Bld) [#/Vol] 4.56 10*6/uL Normal 3.80-5.00 [facility] Comment on above: Performed By: #### L [id number] #### [facility] [address] [place] [address] WBC (Bld) [#/Vol] 6.10 10*3/uL Normal 4.00-10.60 [facility] Comment on above: Performed By: #### L [id number] #### [facility] (AKER) [address] [place] [address] DIGOXIN LEVELon 12-17-2022 DIGOXIN (NG/ML) IN SER/PLAS 1.3 ng/mL Normal 0.7-2 [facility] Comment on above: Performed By: #### L [id number] #### [facility] ([facility]) [address] [place] [address] EKG Rhythm Stripon 3 [facility] Lactate Dehydrogenaseon LDH [Catalytic activity/Vol] 418 U/L High 135-[address] [facility] Comment on above: Performed By: #### L D #### [facility] [address] [place] [address] Battery Test Engineer: Rogelio Franks MD #### TROPI, BMP, PT, TP #### [facility] [address] [place], [place] [id number] Battery Test Engineer: Paddy Juares MD Cholesterol in LDL [Mass/Vol] 418 U/L High 135 - 214 U/L [facility] Interpretation and review of laboratory results Abnormal [facility] EKG Rhythm Stripon 3 [facility] No Panel Informationon 12-13 Successful ultrasoun d guided thoracentesis. [facility] Nilo Muro MD - 12/13/2022 PROCEDURE: [...] chest with one percent lidocaine. A 5 [place] Yueh needle was advanced into the pleural [...] was removed. IMPRESSION: Successful ultrasound guided thoracentesis. [facility] [employer] Work Phone: Radiology Study observation (narrative) [facility] [employer] Work Phone: No Panel InformationOrdered By: Nilo Rawls on 12-13-2022 [facility] Work [facility]: Protein, Totalon 12-13-2022 Protein [Mass/Vol] 5.7 g/dL Low 6.4-8.[address] [facility] Comment on above: Performed By: #### L D #### [employer] [address] [place] [address] Battery Test Engineer: Rogelio Franks MD #### TROPI, BMP, PT, TP #### [place] [id number] [place] [address] Battery Test Engineer: Paddy Juares MD Interpretation and review of laboratory results Abnormal [facility] [employer] Protein [Mass/Vol] 5.7 g/dL Low 6.4 - 8.3 g/dL [facility] [employer] Lactate, Sepsison 12-12-2022 Lactic Acid, Sepsis 2.1 mmol/L High 0.5-1.[address] [facility] Comment on above: Performed By: #### U MAILEO, UAX #### [address] [address] Battery Test Engineer: Paddy Juares MD Interpretation and review of laboratory results Abnormal [facility] Lactic Acid, Sepsis 2.1 mmol/L High 0.5 - 1. 9 mmol/L [facility] Lactic Acid, Sepsis 2.9 mmol/L High 0.5-1.[address] [facility] Comment on above: Performed By: #### U MICAO, UAX #### [address] [address] Battery Test Engineer: Paddy Juares MD Interpretation and review of laboratory results Abnormal [facility] Lactic Acid, Sepsis 2.9 mmol/L High 0.5 - 1. 9 mmol/L [facility] Microscopic Urinalysison Bacteria, UA MANY Abnormal None [facility] Epithelial Cells UA TOO NUMEROUS TO COUNT [facility] Interpretation and review of laboratory results Abnormal [facility] Other Observations UA Utilizing a urinalysis as the only screening method to exclude a potential uropathogen can be unreliable in many patient populations. Rapid screening tests are less sensitive than culture and if UTI is a clinical possibility, culture should be considered despite a negative urinalysis. Abnormal NOT REQ. [facility] RBC clumps Auto (Urine sed) [#/Area] 0 TO 2 [facility] WBC, UA 0 TO 2 [facility] UA w/Reflex Cultureon 2022 Bilirubin, SemiQt,Ur Negative Normal NEG [facility] Comment on above: Performed By: #### U AX, UMICAO #### [address] [address] Battery Test Engineer: Paddy Juares MD Blood, Urine Negative Normal NEG [facility] Comment on above: Performed By: #### U AX, UMICAO #### [address] [id number] Battery Test Engineer: Paddy Juares MD Clarity (U) Cloudy Abnormal CLEAR [facility] Comment on above: Performed By: #### U AX, UMICAO #### [address] [id number] Battery Test Engineer: Paddy Juares MD Color (U) Yellow Normal YEL [facility] Comment on above: Performed By: #### U AX, UMICAO #### [address] [address] Battery Test Engineer: Paddy Juares MD Glucose Ql (U) Negative Normal NEG [facility] Comment on above: Performed By: #### U AX, UMICAO #### [address] [address] Battery Test Engineer: Paddy Juares MD Ketones Ql (U) Negative Normal NEG [facility] Comment on above: Performed By: #### U AX, UMICAO #### [address] [address] Battery Test Engineer: Paddy Juares MD Leukocyte esterase Test strip Ql (U) Negative Normal NEG [facility] Comment on above: Performed By: #### U AX, UMICAO #### [address] [id number] Battery Test Engineer: Paddy Juares MD Nitrite,Ur Negative Normal NEG [facility] Comment on above: Performed By: #### U AX, UMICAO #### [place] [address] Battery Test Engineer: Paddy Juares MD PH,Ur 7.0 Normal 5.0-8.[address] [facility] Comment on above: Performed By: #### U AX, UMICAO #### [place] [address] Battery Test Engineer: Paddy Juares MD Protein Ql (U) Negative Normal NEG [facility] Comment on above: Performed By: #### U AX, UMICAO #### [place] [address] Battery Test Engineer: Paddy Juares MD Spec. [place],Ur 1.015 Normal 1.005-1.030 [place] [facility] Comment on above: Performed By: #### U AX, UMICAO #### [place] [address] Battery Test Engineer: Paddy Juares MD Urobilinogen,Ur Normal Normal NORM [facility] Comment on above: Performed By: #### U AX, UMICAO #### [place] [address] Battery Test Engineer: Paddy Juares MD Urinalysis with Reflex to Cu ltureon 12-12-2022 Bilirubin Urine Negative NEGATIVE [facility] Color, UA Yellow Yellow [facility] Glucose Auto test strip (U) [Mass/Vol] Negative NEGATIVE [facility] Interpretation and review of laboratory results Abnormal [facility] Ketones (U) [Mass/Vol] Negative NEGATIVE [facility] Leukocyte esterase Auto test strip Ql (U) Negative NEGATIVE [facility] Nitrite Auto test strip Ql (U) Negative NEGATIVE [facility] Protein (U) [Mass/Vol] 7.0 mg/dL 5.0 - 8.0 [facility] Protein (U) [Mass/Vol] Negative NEGATIVE [facility] Specific [place], UA 1.015 1.005 - 1.030 [facility] Turbidity UA Cloudy Abnormal Clear [facility] Urine Hgb Negative NEGATIVE [facility] Urobilinogen, Urine Normal Normal [facility] Urinalysis,Microon 3 Bacteria MANY Abnormal NONE [facility] Comment on above: Performed By: #### U AX UMICAO #### [place] [address] Battery Test Engineer: Paddy Juares MD Epithelial cells LM Ql (Urine sed) TOO NUMEROUS TO COUNT Normal 0-[address] [facility] Comment on above: Performed By: #### U AXFRANKY #### [place] [address] Battery Test Engineer: Paddy Juares MD Other Observations Utilizing a urinalysis as the only screening method to exclude a potential Abnormal NREQ [facility] Comment on above: Result Comment: urop athogen can be unreliable in many patient populations. Rapid screening tests are less sensitive than culture and if UTI is a clinical possibility, culture should be considered despite a negative urinalysis. Performed By: #### U AXMARCELO #### [place] [address] Battery Test Engineer: Paddy Juares MD Urine RBC's 0 TO 2 Normal 0-[address] [facility] Comment on above: Performed By: #### U AX UMELEAZARO #### [place] [id number] Battery Test Engineer: Paddy Juares MD Urine WBC's 0 TO 2 Normal 0-[address] [facility] Comment on above: Performed By: #### U AX, UMICAO #### [facility] [address] [place] [address] Battery Test Engineer: Paddy Juares MD XR CHEST PORTABLEon 12-13-19 [...] Tim Sánchez MD 12/12/[address] Final result Normal [facility] Unchanged chest demonstrating cardiomegaly and right pleural [...] chest demonstrating cardiomegaly and right pleural effusion [employer] Phone: Radiology Study observation (narrative) [employer] Phone: XR CHEST PORTABLEOrdered By: Tim Sánchez on 12-12-2022 [employer] [facility] Work Phone: ECHO Complete 2D W Doppler W ColorOrdered By: Tyrese Clemons on 12-11-2022 Left ventricular Ejection fraction [address] [facility] [employer] [facility] Phone: LVEF MODALITY ECHO [facility] Phone: [facility] [employer] [facility] Phone: ECHO Complete 2D W Doppler W Coloron 12-11-2022 [facility] Transthoracic Echocardiography Report (TTE) Patient Name MINARCIN Date of Study 12/10/2022 REBEKAH Date of 1935 Gender Female Age 87 year(s) Race Room Number PB324 Height: 64 inch, 162.56 cm Corporate ID [id number] Weight: 116 pounds, 52.6 kg # Patient Acct [id number] BSA: 1.55 m^2 BMI: 19.91 kg/m^2 # MR # [id number] Strings Teacher Samy Man, [facility] Interpreting Physician Tyrese Clemons Fellow Referring Nurse Practitioner Interpreting Referring Physician Stephen Gamboa Fellow Type of Study TTE procedure:2D Echocardiogram, M-Mode, Doppler, Color Doppler. Procedure Date Date: 12/10/2022 Start: 03:57 PM Study Location: [facility] Technical Quality: Adequate visualization Indications:Congestiv [...] Clemons, / Result, Unknown Provider - 12/11/2022 [facility] Transthoracic Echocardiography Report (TTE) Patient Name MINARCIN Date of Study 12/10/2022 REBEKAH Date of 1935 Gender Female Age 87 year(s) Race Room Number PB324 Height: 64 inch, 162.56 cm Corporate ID [id number] Weight: 116 pounds, 52.6 kg # Patient Acct [id number] BSA: 1.55 m^2 BMI: 19.91 kg/m^2 # MR # [id number] Strings Teacher Samy Man [facility] Interpreting Physician Tyrese Clemons Fellow Referring Nurse Practitioner Interpreting Referring Physician Stephen Gamboa Fellow Type of Study TTE procedure:2D Echocardiogram, M-Mode, Doppler, Color Doppler. Procedure Date Date: 12/10/2022 Start: 03:57 PM Study Location: [facility] Technical Quality: Adequate visualization Indications:Congestiv [...] Gradient: 1.96 mmHg Estimated PASP: 35.46 mmHg [employer] Work Phone: EKG 12 Leadon 12-11-2022 Atrial Rate 75 BPM AKI [employer] Work Phone: Q-T Interval 418 ms [employer] Phone: QRS Duration 124 ms [employer] Work Phone: QTc Calculation (Bazett) 466 ms [employer] Phone: R [place] 2 degrees [employer] Phone: T [place] -91 degrees [employer] Phone: Ventricular Rate 75 BPM AKI [employer] Work Phone: Atrial fibrillation Right bundle branch block T wave abnormality, consider inferolateral ischemia Abnormal ECG When compared with ECG of 08-DEC-2022 21:14, Vent. rate has decreased BY 54 BPM Right bundle branch block is now Present [facility] STV MUSE Result, Unknown Provider - 12/11/2022 Atrial fibrillation Right bundle branch block T wave abnormality, consider inferolateral ischemia Abnormal ECG When compared with ECG of 08-DEC-2022 21:14, Vent. rate has decreased BY 54 BPM Right bundle branch block is now Present [employer] Work Phone: [facility] [employer] Work Phone: EKG Rhythm Stripon [address] [facility] [employer] FLUORO FOR SURGICAL PROCEDUR ESon 12-11-2022 FLUORO FOR SURGICAL PROCEDURES Radiology exam is complete. No Radiologist dictation. Please follow up with ordering provider. Final result Normal [facility] Radiology exam is complete. No Radiologist dictation. Please follow up with ordering provider. [facility] RIS CONSOLIDATED Basic Metabolic Panelon 05-0 Anion gap [Moles/Vol] 8 mmol/L Low 9 - 17 mmol/L [employer] Calcium [Mass/Vol] 8.4 mg/dL Low 8.6 - 10. 4 mg/dL [facility] Chloride [Moles/Vol] 104 mmol/L 98 - 10 7 mmol/L [facility] CO2 [Moles/Vol] 31 mmol/L 20 - 31 mmol/L [facility] Creatinine [Mass/Vol] 0.99 mg/dL High 0.50 - 0.90 mg/dL [facility] GFR/1.73 sq M.predicted MDRD (S/P/Bld) [Vol rate/Area] 56 mL/min/{1.73_m2} Low - PINF [facility] Comment on above: These results are [...] 121 mg/dL High 70 - 99 mg/dL [facility] Interpretation and review of laboratory results Abnormal [facility] Potassium [Moles/Vol] 3.8 mmol/L 3.7 - 5.3 mmol/L [facility] Sodium [Moles/Vol] 143 mmol/L 135 - 144 mmol/L [facility] Urea nitrogen [Mass/Vol] 24 mg/dL High 8 - 23 mg/dL [facility] Basic Metabolic Profon 12-10 Anion gap [Moles/Vol] 8 mmol/L Low 9-17 [facility] Comment on above: Performed By: #### L D #### [employer] [address] [place] [address] Battery Test Engineer: Rogelio Franks MD #### ABDIRASHID, BMP, PT, TP #### [facility] [address] [place] [address] Battery Test Engineer: Paddy Juares MD Calcium [Mass/Vol] 8.4 mg/dL Low 8.6-10.[address] [facility] Comment on above: Performed By: #### L D #### [address] [id number] Battery Test Engineer: Rogelio Franks MD #### TROPI, BMP, PT, TP #### [address] [id number] Battery Test Engineer: Paddy Juares MD Chloride [Moles/Vol] 104 mmol/L Normal 98-107 [facility] Comment on above: Performed By: #### L D #### [address] [id number] Battery Test Engineer: Rogelio Franks MD #### TROPI, BMP, PT, TP #### [address] [address] Battery Test Engineer: Paddy Juares MD CO2 [Moles/Vol] 31 mmol/L Normal 20-[address] [facility] Comment on above: Performed By: #### L D #### [address] [id number] Battery Test Engineer: Rogelio Franks MD #### TROPI, BMP, PT, TP #### [address] [address] Battery Test Engineer: Paddy Juares MD Creatinine [Mass/Vol] 0.99 mg/dL High 0.50-0.90 [facility] Comment on above: Performed By: #### L D #### [address] [id number] Battery Test Engineer: Rogelio Franks MD #### TROPI, BMP, PT, TP #### [address] [address] Battery Test Engineer: Paddy Juares MD GFR/1.73 sq M.predicted among non-blacks MDRD (S/P/Bld) [Vol rate/Area] 56 mL/min/{1.73_m2} Low >[address] [facility] Comment on above: Result Comment: These results [...] secretion. Performed By: #### L D #### [address] [address] Battery Test Engineer: Rogelio Franks MD #### TROPI, BMP, PT, TP #### [address] [address] Battery Test Engineer: Paddy Juares MD Glucose [Mass/Vol] 121 mg/dL High 70-[address] [facility] Comment on above: Performed By: #### L D #### [address] [address] Battery Test Engineer: Rogelio Franks MD #### TROPI, BMP, PT, TP #### [address] [address] Battery Test Engineer: Paddy Juares MD Potassium [Moles/Vol] 3.8 mmol/L Normal 3.7-5.3 [facility] Comment on above: Performed By: #### L D #### [address] [address] Battery Test Engineer: Rogelio Franks MD #### TROPI, BMP, PT, TP #### [address] [address] Battery Test Engineer: Paddy Juares MD Sodium [Moles/Vol] 143 mmol/L Normal 135-[address] [facility] Comment on above: Performed By: #### L D #### [facility] [address] [place] [address] [id number] Battery Test Engineer: Rogelio Franks MD #### TROPRobyn BMP, PT, TP #### [address] [id number] Battery Test Engineer: Paddy Juares MD Urea nitrogen [Mass/Vol] 24 mg/dL High 8- [facility] Comment on above: Performed By: #### L D #### [address] [id number] Battery Test Engineer: Rogelio Franks MD #### TROPRobyn, BMP, PT, TP #### [address] [address] Battery Test Engineer: Paddy Juares MD EKG 12 Leadon 12-10-2022 Atrial Rate 131 BPM [employer] Phone: Q-T Interval 306 ms [employer] Phone: QRS Duration 114 ms [employer] Phone: QTc Calculation (Bazett) 448 ms [employer] Phone: R [place] 21 degrees [employer] Phone: T [place] -66 degrees [employer] Phone: Ventricular Rate 129 BPM [email or web address] Phone: Atrial fibrillation with rapid ventricular response ST & T wave abnormality, consider anterior ischemia Abnormal ECG No previous ECGs available [facility] STV MUSE Result, Unknown Provider - 12/10/2022 Atrial fibrillation with rapid ventricular response ST & T wave abnormality, consider anterior ischemia Abnormal ECG No previous ECGs available [employer] Work Phone: [employer] Work Phone: EKG Rhythm Stripon 3 [employer] MRI LUMBAR SPINE WO CONTRAST on 12-10-2022 [...] Thiago Rosenthal MD 12/10/[address] Normal [facility] Mild loss of vertebral body height and superior endplate edema versus inflammation at the L3 level that may represent an acute/subacute compression deformity. Remote compression deformity at L1 and L2. Multilevel degenerative change with foraminal narrowing as described above. [facility] RIS CONSOLIDATED EXAMINATION: MRI OF THE [...] stenosis. There is severe bilateral foraminal narrowing. [facility] Thiago Herr MD - 12/10/2022 EXAMINATION: MRI OF THE [...] change with foraminal narrowing as described above. [employer] Phone: [employer] Phone: Radiology Study observation (narrative) [employer] Phone: MRI THORACIC SPINE WO CONTRA STon [...] by: Thiago Rosenthal MD Signed by: Thiago Rosetnhal MD 12/10/[address] [facility] Remote compression deformity at T4, T6, T7, T8, T10, T11, L1, and L2. Prominent inferior endplate Schmorl's node at T11 with adjacent edema or inflammation. Multilevel degenerative change without significant canal stenosis or foraminal narrowing. Large right-sided pleural effusion and trace left-sided pleural effusion. [facility] CONSOLIDATED EXAMINATION: MRI OF THE THORACIC SPINE [...] no canal stenosis or significant foraminal narrowing. [facility] CONSOLIDATED Thiago Rosenthal MD - 12/10/2022 EXAMINATION: [...] pleural effusion and trace left-sided pleural effusion. [employer] Phone: Radiology Study observation (narrative) [employer] Phone: MRI THORACIC SPINE WO CONTRA STOrdered By: Thiago Rosenthal on 12-10-2022 [employer] Phone: PTon 12-10-2022 INR Coag (PPP) [Relative time] 1.2 {INR} Normal [facility] Comment on above: Result Comment: Therapeutic Range: Moderate Anticoagulant Intensity: INR = 2.0-3.0 High Anticoagulant Intensity: INR = 2.5-3.5 Performed By: #### L D #### [employer] [address] [place] [address] Battery Test Engineer: Rogelio Franks MD #### TROPI, BMP, PT, TP #### [address] [address] Battery Test Engineer: Paddy Juares MD PT Coag (PPP) [Time] 12.5 s Normal 9.4-12.6 [facility] Comment on above: Performed By: #### L D #### [address] [address] Battery Test Engineer: Rogelio Franks MD #### TROPI, BMP, PT, TP #### [address] [address] Battery Test Engineer: Paddy Juares MD Protime-INRon 12-10-2022 INR Coag (PPP) [Relative time] 1.2 {INR} [facility] Comment on above: Therapeutic Range: Moderate Anticoagulant Intensity: INR = 2.0-3.0 High Anticoagulant Intensity: INR = 2.5-3.5 PT Coag (PPP) [Time] 12.5 s [facility] Troponinon 12-10-2022 Troponin, High Sens 35 ng/L High 0-[address] [facility] Comment on above: Result Comment: High Sensitivity Troponin values cannot be compared with other Troponin methodologies. Performed By: #### L D #### [address] [address] Battery Test Engineer: Rogelio Franks MD #### TROPI, BMP, PT, TP #### [address] [address] Battery Test Engineer: Paddy Juares MD Interpretation and review of laboratory results Abnormal [facility] Troponin I.cardiac DL <= 0.01 ng/mL [Mass/Vol] 35 ng/L High 0 - 14 ng/L [facility] Comment on above: High Sensitivity Tro ponin values cannot be compared with other Troponin methodologies. [facility] XR CHEST PORTABLEon 12-11-19 XR CHEST [...] Deuce Dubois MD 12/10/[address] [facility] Right pleural effusion with associated compressive atelectasis. Bibasilar opacities, also likely atelectatic. Infiltrate a consideration. Cardiomegaly with venous hypertension but no radiographic CHF. [facility] CONSOLIDATED EXAMINATION: ONE XRAY VIEW OF THE [...] convex-left curvature thoracic spine and some DJD. [facility] CONSOLIDATED Deuce Dubois MD - 12/10/2022 EXAMINATION: ONE XRAY VIEW [...] with venous hypertension but no radiographic CHF. [employer] Phone: Radiology Study observation (narrative) [employer] Phone: XR CHEST PORTABLEOrdered By: Deuce Dubois on 12-10-2022 [employer] Phone: CT LUMBAR SPINE WO CONTRASTo n [...] Tim Bishop MD 12/09/[address] [facility] 1. Subacute appearin g fractures involving the [...] trace ascites, and at least mild anasarca. [facility] RIS CONSOLIDATED EXAMINATION: CT OF THE LUMBAR SPINE [...] intraperitoneal fluid. At least mild subcutaneous edema. [facility] RIS CONSOLIDATED Tim Bishop MD - 12/09/2022 EXAMINATION: [...] trace ascites, and at least mild anasarca. [employer] Phone: [employer] Phone: XR LUMBAR SPINE (2-3 VIEWS)o n [...] Tim Bishop MD 12/08/[address] [facility] CT LUMBAR SPINE WO CONTRASTo n 12-08-2022 Radiology Study observation (narrative) [employer] Work Phone: XR LUMBAR SPINE (2-3 VIEWS)o n 12-08-2022 1. Age-indeterminate compression fractures of the L1 and L2 superior endplates. Compression deformities at T10 and T11 are favored to be chronic. Consider further seen with MRI or CT. 2. Severe bony demineralization partially limits evaluation for fractures. 3. Moderate lumbar spine degenerative changes associated with moderate levoscoliosis. [facility] CONSOLIDATED EXAMINATION: 3 XRAY VIEWS OF THE [...] disc disease. Mild to severe facet arthropathy. [facility] CONSOLID[facility] Tim Bishop MD - 12/08/2022 EXAMINATION: [...] spine degenerative changes associated with moderate levoscoliosis. [employer] Work Phone: Radiology Study observation (narrative) [employer] Work Phone: XR LUMBAR SPINE (2-3 VIEWS)O rdered By: Tim Bishop on 12-08-2022 [employer] Work Phone: Vital Signs Date Time Vital Sign Value Performing Clinician Jerzy nicole 12-14-2022 14:46-0400 Body height 162.6 cm Abdifatah Bridges III, MD Work Phone: [employer] 12-14-2022 08:15-0400 Body temperature 97.3 [degF] Abdifatah Bridges III, MD Work Phone: [employer] 12-14-2022 08:15-0400 Diastolic blood pressure 65 mm[Hg] Abdifatah Bridges III, MD Work Phone: [employer] 12-14-2022 08:15-0400 Heart rate 71 /min Abdifatah Bridges III, MD Work Phone: [employer] 12-14-2022 08:15-0400 Respiratory rate 16 /min Abdifatah Bridges III, MD Work Phone: [employer] 12-14-2022 08:15-0400 SaO2% (BldA) [Mass fraction] 98 % Abdifatah Bridges III, MD Work Phone: [employer] 12-14-2022 08:15-0400 Systolic blood pressure 110 mm[Hg] Abdifatah Bridges III, MD Work Phone: [employer] 12-14-2022 06:00-0400 Body mass index (BMI) [Ratio] 20.06 kg/m2 Abdifatah Bridges III, MD Work Phone: [employer] 12-14-2022 06:00-0400 Body weight 53 kg Abdifatah Bridges III, MD Work Phone: [facility] 12-13-2022 11:54-0400 Diastolic blood pressure 64 mm[Hg] Stv 2 [facility] 12-13-2022 11:54-0400 SaO2% (BldA) [Mass fraction] 100 % Stv 2 [facility] 12-13-2022 11:54-0400 Systolic blood pressure 112 mm[Hg] Stv 2 [facility] Encounters Encounter Date Encounter Type Care Provider Facility Start: 01-30-2023 End: 01-30-2023 ambulatory ZHEN Alcon [facility] Start: 01-24-2023 End: 01-25-2023 Emergency department patient visit [facility] Start: 12-25-2022 End: 12-26-2022 Emergency department patient visit [facility] Start: 12-13-2022 End: 12-16-2022 ambulatory [facility] Start: 12-13-2022 End: 12-15-2022 Subsequent hospital visit by physician Eddy [employer] [address] Special Procedures Comment on above: Arrived Start: 12-11-2022 Telephone encounter Alaina Jackman [facility] Start: 12-08-2022 End: 12-14-2022 Evaluation and management of inpatient ELOY SULLIVAN [facility] Start: 12-08-2022 End: 12-14-2022 Evaluation and management of inpatient Abdifatah Bridges MD Work Phone: [facility] Comment on above: Lumbar [...] Phone: Start: 12-12-2022 Urinalysis microscop ic only Tohmas Chang MD Work Phone: Start: 12-12-2022 Urnls dip stick/tabl et rgnt auto w/o microscopy Thomas Chang MD Work Phone: Start: 12-12-2022 LACTATE, SEPSIS Thomas Chang MD Work Phone: Start: 12-11-2022 Fluoroscopy during operation Deuce Pozo [employer] DO Work Phone: Start: 12-11-2022 End: 12-11-2022 Perq vert agmntj cavity crtj uni/bi cannulj lmbr Deuce Pozo [employer] DO Work Phone: Start: 12-11-2022 Rhythm ecg 1-3 leads w/interpretation & report Unknown Provider Result Start: 12-10-2022 Echo tthrc r-t 2d w/wom-mode compl spec&colr d Cooper Mitchell MD Work Phone: Start: 12-10-2022 Radiologic exam ches t single view Carlos Alberto Best MD Work Phone: Start: 12-10-2022 End: 12-10-2022 Mri spinal canal thoracic w/o contrast matrl Deuce Olguinenship DO Work Phone: Start: 12-10-2022 Ecg routine ecg w/le ast 12 lds trcg only w/o i&r Thomas Chang MD Work Phone: Start: 12-10-2022 Basic metabolic pane l calcium total Cooper Mitchell MD Work Phone: Start: 12-10-2022 Rhythm ecg 1-3 leads w/interpretation & report Unknown Provider Result Start: 04-29-2023 Ct lumbar spine w/o contrast material Abdifatah Bridges MD Work Phone: Start: 12-08-2022 Radex spine lumbosac ral 2/3 views Abdifatah Bridges MD Work Phone: Start: 12-08-2022 Ecg routine ecg w/le ast 12 lds trcg only w/o i&r Abdifatah Bridges MD Work Phone: Start: 11-13-2022 Adult depression scr eening assessment Alaina Hurley RN Plan of Treatment Date Care Activity Detail Author Start: 08-15-2032 DTaP,Tdap and Td Vac cines (2 - Td or Tdap) DTaP,Tdap and Td Vaccines (2 - Td or Tdap) [facility] Start: 08-15-2032 DTaP/Tdap/Td vaccine (2 - Td or Tdap) DTaP/Tdap/Td vaccine (2 - Td or Tdap) [facility] Start: 07-12-2024 Adult BMI Screening Adult BMI Screen ing [facility] Start: 07-10-2024 Tobacco Screening Tobacco Screening [facility] Start: 11-14-2023 Depression Screening Depression Scre ening [facility] Start: 04-12-2023 Influenza vaccination Influenza Vacc ine [facility] Start: 03-12-2023 Influenza vaccination Flu vacc ine (Season Ended) [facility] Start: 12-10-2022 Annual Wellness Visi t (AWV) Annual Wellness Visit (AWV) [facility] Start: 2001 Fall Risk Screening Fall Risk Screen ing [facility] Start: 1986 Administration of varicella zoster vaccine Zoster (Shingles) Vaccine (1 of 2) [facility] Start: 1986 Shingles vaccine (1 of 2) [place] gles vaccine (1 of 2) [facility] Start: 1948 Depression Screen Depression Screen [facility] Start: 1942 Pneumococcal 65+ yea rs Vaccine (1 - PCV) Pneumococcal 65+ years Vaccine (1 - PCV) [facility] Start: 1936 COVID-19 Vaccine (#1) COVID-19 Vacci ne (#1) [employer] Start: 1935 Medicare Annual Well ness Visit Medicare Annual Wellness Visit [email or web address] Start: 1936 Tobacco Counseling Tobacco Counselin g [email or web address] End: 12-13-2022 Culture, Body Fluid Culture, Body Fluid Microbiology Routine One Time for 1 Occurrences starting 12/13/2022 until 12/13/2022 [employer] Phone: Comment on above: One Time for 1 Occur rences starting 12/13/2022 until 12/13/2022 End: 12-13-2022 Cytology, Non-Labor And Employment Paralegal Cytology, Non-Labor And Employment Paralegal Lab Routine One Time for 1 Occurrences starting 12/13/2022 until 12/13/2022 [employer] Phone: Comment on above: One Time for 1 Occur rences starting 12/13/2022 until 12/13/2022 End: 12-13-2022 Glucose, Body Fluid Glucose, Body Fluid Lab Routine One Time for 1 Occurrences starting 12/13/2022 until 12/13/2022 [employer] Phone: Comment on above: One Time for 1 Occur rences starting 12/13/2022 until 12/13/2022 End: 12-11-2022 INITIATE PACU OXYGEN THERAPY PROTOCOL Initiate PACU Oxygen Therapy Protocol Respiratory Care Routine Continuous until discontinued starting 12/11/2022 [employer] Phone: Comment on above: Continuous until dis continued starting 12/11/2022 Intermittent pulse oximetry Pulse Oximetry Spot Check Respiratory Care Routine As Needed until discontinued starting 12/09/2022 [employer] Phone: Comment on above: As Needed until disc ontinued starting 12/09/2022 End: 12-13-2022 Lactate Dehydrogenase, Body Fluid Lactate Dehydrogenase, Body Fluid Lab Routine One Time for 1 Occurrences starting 12/13/2022 until 12/13/2022 [employer] Phone: Comment on above: One Time for 1 Occur rences starting 12/13/2022 until 12/13/2022 Nasal Cannula Oxygen Nasal Cannu la Oxygen Respiratory Care Routine Daily until discontinued starting 12/11/2022 [employer] Phone: Comment on above: Daily until disconti nued starting 12/11/2022 Nasal Cannula Oxygen Nasal Cannu la Oxygen Respiratory Care Routine Daily until discontinued starting 12/12/2022 [employer] Phone: Comment on above: Daily until disconti nued starting 12/12/2022 Oxygen therapy [Mini mum Data Set] Initiate Oxygen Therapy Protocol Respiratory Care Routine As Needed until discontinued starting 12/09/2022 [employer] Phone: Comment on above: As Needed until disc ontinued starting 12/09/2022 Oxygen therapy [Mini mum Data Set] Initiate Oxygen Therapy Protocol Respiratory Care Routine As Needed until discontinued starting 12/11/2022 [employer] Phone: Comment on above: As Needed until disc ontinued starting 12/11/2022 End: 12-13-2022 pH, Body Fluid pH, Body Fluid Lab Routine One Time for 1 Occurrences starting 12/13/2022 until 12/13/2022 [employer] Phone: Comment on above: One Time for 1 Occur rences starting 12/13/2022 until 12/13/2022 End: 12-11-2022 , urine POCT , urine POCT Point of Care Testing Routine One Time for 1 Occurrences starting 12/11/2022 until 12/11/2022 [employer] Phone: Comment on above: One Time for 1 Occur rences starting 12/11/2022 until 12/11/2022 End: 12-13-2022 Protein [Mass/volume] in Serum or Plasma Protein, Total Lab Routine One Time for 1 Occurrences starting 12/13/2022 until 12/13/2022 [employer] Phone: Comment on above: One Time for 1 Occur rences starting 12/13/2022 until 12/13/2022 Immunizations Immunization Date Immunization Notes Care Provider Fa destinysree 08-15-2022 tetanus toxoid, redu rakel diphtheria toxoid, and acellular pertussis vaccine, adsorbed Alaina Hurley RN [email or web address] Payers Date Payer Category Payer Medicare [id number] 2001 Medicare MEDICARE MEDICAR E PART A & B [id number] 2001-Present [phone] [address] [place] [address] [id number] 1936 Unknown [id number] 1935 Unknown [id number] 1935 Unknown [id number] 1935 Unknown [id number] 1935 Unknown [id number] Social History Date Type Detail Facility Start: 11-07-2022 End: 12-09-2022 Tobacco smoking status ALIS Smokes tobacco daily [employer] Phone: History of tobacco use Cigarette Smoker [facility] [employer] Phone: Start: 09-21-2020 End: 12-09-2022 Cigarettes smoked current (pack per day) - Reported 1 [email or web address] Work Phone: Start: 11-07-2022 End: 12-09-2022 Tobacco use and exposure Smokeless tobacco non-user [employer] Phone: Start: 1935 Sex Assigned At Not on file AKI [employer] Work Phone: Start: 11-13-2022 Alcohol intake Lifetime non-drinker (finding) [facility] Start: 07-31-2020 End: 09-21-2020 Alcohol Use Disorder Identification Test - Consumption [AUDIT-C] [email or web address] Work Phone: How often to you hav e a drink containing alcohol? Never [email or web address] Work Phone: Average Number of Drinks Not on file [employer] [facility] Start: 1935 Sex Assigned At Female [email or web address] Start: 07-08-2023 Gender identity Identifies as female gender (finding) [facility] Start: 07-08-2023 Sexual orientation Heterosexual (finding) [facility] Start: 10-14-2022 End: 11-13-2022 Exposure to SARS-CoV-2 (event) Not sure [facility] Medical Equipment Procedure Code Equipment Code Equipment Origin al Text Equipment Identifier Dates Cement Bne Hi Vi sc Radiopaque Kyphon Hv-R - [id number] Start: 12-11-2022 Nail Im 170mm 9m m 125d Shrt Cnn Tfn-Adv Lat Rlf Cut Ti Cocr - [id number] Start: 07-10-2023 Blade Im Nl Au 9 0mm 10.35mm Tfn-Adv Hlcl Fem Prox Ti Niobium - [id number] Start: 07-10-2023 Screw Bn 34mm 5m m 4.[address] Lck Strdr Blnt Tip Ti T25 Ft Strl - [id number] Start: 07-10-2023 Goals Date Patient Goal Desired Activity /State Personal health goal Comment on above: Formatting of this n ote might be different from the original. Evaluation of progress towards goal: Pt's goal is to go to SNF at discharge for short term rehab. 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 Active Problems: Patient Active Problem List Diagnosis Code Fracture of lumbar spine without cord injury, closed, initial encounter ([facility]) S32.009A Pleural effusion, right J90 Atrial fibrillation with rapid ventricular response (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 Physician Certification: I certify the above information and transfer of Rebekah Moore is necessary for the continuing treatment of the diagnosis listed and that she requires Half-Way Facility for greater 30 days. Update Admission H&P: No change in H&P PHYSICIAN SIGNATURE: documented in this encounter [employer] Phone: 12-14-2022 Hospital course Narrative Images from the original note were not included. [facility] Office: [phone] Aditya Zapata DO, Teo Espitia DO, Haroon Killian DO, Italo Sanabria DO, Martínez Julio MD, Grecai Fox MD, Cooper Mitchell MD, Annita Argueta MD, Kapil Jones MD, Darrel Tejada MD, Hamilton Redmond DO, Barney Mcclelland MD, Megan Harper DO, Era Garcia MD, Thomas Chang MD, Tim Zapata DO, Kenya Garduno MD, Brian Lai MD, Sanya Rojas, DO, Alissa Pulido MD, Larissa Moses MD, Nicolasa Yeh MD, Clara Calles MD, Moustapha Gillespie DO, Augustus Pak MD, No Walton, SEED CONE PICKER, Kendra Ramirez, SEED CONE PICKER, Aviva Barnett, SEED CONE PICKER, Hamzah Hartman, SEED CONE PICKER, Yudith Shell, KIRTI, Karissa Nguyen, SEED CONE PICKER, Julissa Landis, SEED CONE PICKER, Genet Vega, SEED CONE PICKER, Keri Dietz, SEED CONE PICKER, Shirley Helton, SEED CONE PICKER, Deuce Guthrie PA-C, Anabelle Mccoy, REHEATER HELPER, Aparna Bryant, SEED CONE PICKER, Rebekah Duran, SEED CONE PICKER [facility] IN-PATIENT SERVICE [facility] Discharge Summary Patient ID: Rebekah Moore : 1935 ACCOUNT: [id number] Patient's PCP: Hawa Garzon Admit Date: 12/08/2022 [...] RDW, PLT, MPV, SEDRATE, CRP, INR, DDIMER, FI1QUSHV, LABABSO in the last 72 hours. Invalid input(s): PT Chemistry:No results for input(s): NA, K, CL, CO2, GLUCOSE, BUN, CREATININE, MG, ANIONGAP, LABGLOM, GFRAA, CALCIUM, CAION, PHOS, PSA, PROBNP, TROPHS, CKTOTAL, CKMB, CKMBINDEX, MYOGLOBIN, DIGOXIN, LACTACIDWB in the last 72 hours.No results for input(s): PROT, LABALBU, LABA1C, S3EEIAL, Z7JHBTL, FT4, TSH, AST, ALT, LDH, GGT, ALKPHOS, LABGGT, BILITOT, BILIDIR, AMMONIA, AMYLASE, LIPASE, LACTATE, CHOL, HDL, LDLCHOLESTEROL, CHOLHDLRATIO, TRIG, VLDL, BOR18CX, PHENYTOIN, PHENYF, URICACID, POCGLU in the last 72 hours. ABG:No results found for: POCPH, PHART, PH, POCPCO2, LYE2XTV, PCO2, POCPO2, PO2ART, PO2, POCHCO3, VAB6CLX, HCO3, NBEA, PBEA, BEART, BE, THGBART, THB, QCY6DIJ, NNQA7QPY, I9UHFHDV, O2SAT, FIO2 No results found for: SPECIAL [...] of discharge. Discharge plan: Disposition: To a non-[facility] facility Physician Follow Up: [place] [address] [address] Schedule an appointment as soon as possible for a visit in 1 week(s) Hospital follow-up; right-sided pleural effusion Deuce Hollis, [address] [place] [address] Schedule an appointment as soon as possible [...] Your Medications These medications were sent to [facility] [address] [place] [id number] [place] [address] - [phone] [facility] [id number] midodrine 10 MG tablet Time spent on discharge is 20 mins in patient examination, evaluation, counseling as well as medication reconciliation, prescriptions for required medications, discharge plan and follow up. Electronically signed by Thomas Chang MD 12/14/2022 9:[address] Hawa Garzon for the opportunity to be involved in this patient's care. documented in this encounter [employer] Phone: 12-13-2022 Note PROCEDURE: ULTRASOUNDGUIDED RIGHT THORACENTESIS 12/13/2022 [...] chest with one percent lidocaine. A 5 Salvadorean Yueh needle was advanced into the pleural [...] by: Nilo Rawls MD 12/13/[address] [facility] 12-13-2022 History of Present illness Narrative PULMONARY [...] [P.O.:410; I.V.:20] Out: 1470 [Urine:1470] Date 12/13/22 0000 - 12/13/22 2359 Shift [phone] 5696-9590 8020-8047 24 Hour Total INTAKE P.O.(mL/kg/hr) 50(0.1) 50 I.V.(mL/kg) 10(0.2) 10(0.2) Shift Total(mL/kg) 50(0.9) 10(0.2) 60(1.1) OUTPUT Urine(mL/kg/hr) 320(0.8) 1150 1470 Shift Total(mL/kg) 320(6) 1150(21.7) 1470(27.8) Weight (kg) 52.9 52.9 52.9 52.9 LABORATORY RESULTS: BLOOD GASES: No results for input(s): POCPH, POCPCO2, POCPO2, POCHCO3, VEKZ4TMX in the last 72 hours. COMPLETE BLOOD [...] Anasarca ASSESSMENT: Right pleural effusion, s/p thoracentesis 5/4 Congestive cardiac failure LV systolic dysfunction, EF [...] from the original note were not included. [facility] Office: [phone] Aditya Zapata DO, Teo Espitia DO, Haroon [...] Ramirez CNP, Aviva Barnett CNP, Hamzah Hartman, SEED CONE PICKER, Yudith Shell, KIRTI, Karissa Nguyen, SEED CONE PICKER, Julissa Landis CNP, Genet Vega CNP, Keri Dietz CNP, Shirley Helton CNP, Deuce Guthrie PA-C, Anabelle Mccoy, REHEATER HELPER, Aparna Bryant, SEED CONE PICKER, Rebekah Duran, SEED CONE PICKER [facility] IN-PATIENT SERVICE [facility] Progress Note 12/13/2022 10:19 AM Name: Rebekah Moore Acct: [id number] Room: [address] [place] [address] Day: 4 Admit Date: 12/08/2022 8:59 PM [...] RDW, PLT, MPV, SEDRATE, CRP, INR, DDIMER, LV0VMGUY, LABABSO in the last 72 hours. Invalid input(s): PT Chemistry: No results for input(s): NA, K, CL, CO2, GLUCOSE, BUN, CREATININE, MG, ANIONGAP, LABGLOM, GFRAA, CALCIUM, CAION, PHOS, PSA, PROBNP, TROPHS, CKTOTAL, CKMB, CKMBINDEX, MYOGLOBIN, DIGOXIN, LACTACIDWB in the last 72 hours. No results for input(s): PROT, LABALBU, LABA1C, J3NZAPN, S1IBNKA, FT4, TSH, AST, ALT, LDH, GGT, ALKPHOS, LABGGT, BILITOT, BILIDIR, AMMONIA, AMYLASE, LIPASE, LACTATE, CHOL, HDL, LDLCHOLESTEROL, CHOLHDLRATIO, TRIG, VLDL, RVE97ID, PHENYTOIN, PHENYF, URICACID, POCGLU in the last 72 hours. ABG:No results found for: POCPH, PHART, PH, POCPCO2, JFC9JBK, PCO2, POCPO2, PO2ART, PO2, POCHCO3, XAZ6SBB, HCO3, NBEA, PBEA, BEART, BE, THGBART, THB, ISM7NQT, KPAS0IUV, U9XPQQSJ, O2SAT, FIO2 No results found for: SPECIAL [...] spine without cord injury, closed, initial encounter ([facility]) 12/09/2022 Yes Pleural effusion, right 12/09/2022 Yes Atrial fibrillation with rapid ventricular response ([facility]) 12/09/2022 Yes Anasarca 12/09/2022 Yes Plan: T11 [...] 875 [Urine:875] Date 12/12/22 - 12/12/222358 Shift 2197-0859 5637-8430 7049-4654 24 Hour Total INTAKE P.O.(mL/kg/hr) 150(0.3) 150 Shift Total(mL/kg) 150(2.8) 150(2.8) OUTPUT Urine(mL/kg/hr) 525(1.2) 525 Shift Total(mL/kg) 525(9.7) 525(9.7) Weight (kg) 53.9 53.9 53.9 53.9 LABORATORY RESULTS: BLOOD GASES: No results for input(s): POCPH, POCPCO2, POCPO2, POCHCO3, DMEB9AAB in the last 72 hours. COMPLETE BLOOD [...] from the original note were not included. [facility] Office: [phone] Aditya Zapata DO, Teo Espitia DO, Haroon [...] [place], [place], Aparna Bryant CNP, Rebekah Duran, SEED CONE PICKER [facility] IN-PATIENT SERVICE [facility] Progress Note 12/12/2022 1:25 PM Name: Rebekah Moore Acct: [id number] Room: [address] [place] [address] Day: 3 Admit Date: 12/08/2022 8:59 PM [...] No results for input(s): PROT, LABALBU, LABA1C, M1XFEXR, Z8RMCMB, FT4, TSH, AST, ALT, LDH, GGT, ALKPHOS, LABGGT, BILITOT, BILIDIR, AMMONIA, AMYLASE, LIPASE, LACTATE, CHOL, HDL, LDLCHOLESTEROL, CHOLHDLRATIO, TRIG, VLDL, VNY86JD, PHENYTOIN, PHENYF, URICACID, POCGLU in the last 72 hours. ABG:No results found for: POCPH, PHART, PH, POCPCO2, YFS4DCK, PCO2, POCPO2, PO2ART, PO2, POCHCO3, KAY4TKM, HCO3, NBEA, PBEA, BEART, BE, THGBART, THB, ERY7XNZ, NEPI6IOR, V9ABIDBZ, O2SAT, FIO2 No results found for: SPECIAL [...] spine without cord injury, closed, initial encounter ([facility]) 12/09/2022 Yes Pleural effusion, right 12/09/2022 Yes Atrial fibrillation with rapid ventricular response ([facility]) 12/09/2022 Yes Anasarca 12/09/2022 Yes Plan: T11 [...] MD 12/12/2022 1:25 PM Physical Therapy Facility/Department: [facility] ICU Physical Therapy Initial Assessment [...] CAD (coronary artery disease), Chronic atrial fibrillation ([facility]), Chronic CHF (congestive heart failure) ([facility]), Compression fracture of body of thoracic vertebra ([facility]), Moderate malnutrition ([facility]), Osteoporosis, and PAD (peripheral artery disease) (HCC). Past Surgical History: has a past surgical [...] reports wall/furniture walking) Transfer Assistance: Independent Active Back Hoe Machine Operator: Yes Patient's Back Hoe Machine Operator Info: Daughter Mode of Transportation: Car Occupation: [...] AM-PAC Inpatient T-Scale Score : 40.78 (12/12/22 111) Mobility Inpatient CMS 0-100% Score: 54.16 (12/12/22 111) Mobility Inpatient CMS G-Code Modifier : CK (12/12/221112) Tinneti Score Goals Short Term Goals Time [...] Minutes Kristina Franks PT Occupational Therapy Facility/Department: [facility] MED SURG ICU Occupational Therapy Initial Assessment Name: [...] CAD (coronary artery disease), Chronic atrial fibrillation ([facility]), Chronic CHF (congestive heart failure) ([facility]), Compression fracture of body of thoracic vertebra (HCC), Moderate malnutrition ([facility]), Osteoporosis, and PAD (peripheral artery disease) ([facility]). Past Surgical History: has a past surgical [...] reports wall/furniture walking) Transfer Assistance: Independent Active Back Hoe Machine Operator: Yes Patient's Back Hoe Machine Operator Info: Daughter Mode of Transportation: Car Occupation: [...] Comments: Mod verbal/tactile cues for proper hand placement/initiation/sequencing /safety awareness with use of RW; increased time/effort [...] T-Scale Score : 34.69 (12/12/22956) ADL Inpatient [facility] 0-100% Score: 56.46 (12/12/22956) ADL Inpatient CMS G-Code Modifier : CK (12/12/22956) Goals Short [...] from the original note were not included. [facility] Office: [phone] Aditya Zapata DO, Teo Espitia DO, Haroon [...] Gillespie DO, Augustus Pak MD, No Walton, CORNELIUS, Kendra Ramirez, CORNELIUS, Aviva Barnett, CORNELIUS, Hamzah Hartman, CORNELIUS, Yudith Shell DNP, Karissa Nguyen, CORNELIUS, Julissa Landis, CORNELIUS, Genet Vega, CORNELIUS, Keri Dietz, CORNELIUS, Shirley Helton, CORNELIUS, Deuce Guthrie PA-C, Anabelle Mccoy, REHEATER HELPER, Aparna Bryant, CORNELIUS, Rebekah Duran, CORNELIUS [facility] IN-PATIENT SERVICE [facility] Progress Note 12/11/2022 1:46 PM Name: Rebekah Moore Acct: [id number] Room: [facility] Day: 2 Admit Date: 12/08/2022 8:59 PM [...] No results for input(s): PROT, LABALBU, LABA1C, W1MMDPO, F5CRPVC, FT4, TSH, AST, ALT, LDH, GGT, ALKPHOS, LABGGT, BILITOT, BILIDIR, AMMONIA, AMYLASE, LIPASE, LACTATE, CHOL, HDL, LDLCHOLESTEROL, CHOLHDLRATIO, TRIG, VLDL, OGO06ND, PHENYTOIN, PHENYF, URICACID, POCGLU in the last 72 hours. ABG:No results found for: POCPH, PHART, PH, POCPCO2, FPO1QCQ, PCO2, POCPO2, PO2ART, PO2, POCHCO3, JBR6DAM, HCO3, NBEA, PBEA, BEART, BE, THGBART, THB, HZO9XMH, AEFV7UWO, Y1ZSLGMG, O2SAT, FIO2 No results found for: SPECIAL [...] spine without cord injury, closed, initial encounter ([facility]) 12/09/2022 Yes Pleural effusion, right 12/09/2022 Yes Atrial fibrillation with rapid ventricular response ([facility]) 12/09/2022 Yes Anasarca 12/09/2022 Yes Plan: T11 [...] unchanged from a previous study completed at [facility] on September 26, 2021. Electrocardiogram shows atrial [...] bed with back pain Gross motor intact / TA/EHL/GSC Sensation intact to light touch L2-S1 [...] be obtained and operative site marked -Ancef product consultant to OR -IM and pulmonology cleared; Echo [...] original note were not included. Occupational Therapy [facility] Occupational Therapy Not Seen Note DATE: 12/11/2022 NAME: Rebekah Moore : 1935 Patient not seen this date for Occupational Therapy due to: Surgery/Procedure: Pt pending kyphoplasty this with orthosx Next Scheduled Treatment: Will check back 12/12/2022 Images from the original note were not included. Physical Therapy Physical Therapy Cancel Note DATE: 12/11/2022 NAME: Rebekah Moore : 1935 Patient not seen this date for Physical Therapy due to: Surgery/Procedure: hypoplasty today at noon Graphics Manager spoke with Sury on med surg unit, informed her that pt's surgery has been rescheduled for noon on 12/11/2022. Also informed caller that surgeon wants patient to eat today & NPO at midnight. Caller verbalized an understanding. Graphics Manager spoke with RASHIDA Armijo, for report. Graphics Manager informed that pt has an active order [...] from the original note were not included. [facility] Office: [phone] Aditya Zapata DO, Teo Espitia DO, Haroon Killian DO, Italo Sanabria, DO, Martínez Julio MD, Grecia Fox MD, Cooper Mitchell MD, Annita Argueta MD, Kapil Jones MD, Darrel Tejada MD, Hamilton Redmond, DO, Barney Mcclelland MD, Megan Harper, DO, Era Garcia MD, Thomas Chang MD, Tim Zapata DO, Kenya Garduno MD, Brian Lai MD, Sanya Rojas DO, Alissa Pulido MD, Larissa Moses MD, Nicolasa Yeh MD, Clara Calles MD, Moustapha Gillespie DO, Augustus aPk MD, No Walton, SEED CONE PICKER, Kendra Ramirez, SEED CONE PICKER, Aviva Barnett, SEED CONE PICKER, Hamzah Hartman, SEED CONE PICKER, Yudith Shell, [facility], Karissa Nguyen, SEED CONE PICKER, Julissa Landis, SEED CONE PICKER, Genet Vega SEED CONE PICKER, Keri Dietz, SEED CONE PICKER, Shirley Helton, SEED CONE PICKER, Deuce Guthrie PA-C, Anabelle Mccoy, REHEATER HELPER, Aparna Bryant, SEED CONE PICKER, Rebekah Duran, SEED CONE PICKER [facility] IN-PATIENT SERVICE [facility] Progress Note 12/10/2022 11:07 AM Name: Rebekah Moore Acct: [id number] Room: [address] [place] [address] Day: 1 Admit Date: 12/08/2022 8:59 PM [...] No results for input(s): PROT, LABALBU, LABA1C, X3ZWQEK, E8TCXVT, FT4, TSH, AST, ALT, LDH, GGT, ALKPHOS, LABGGT, BILITOT, BILIDIR, AMMONIA, AMYLASE, LIPASE, LACTATE, CHOL, HDL, LDLCHOLESTEROL, CHOLHDLRATIO, TRIG, VLDL, HVU22FJ, PHENYTOIN, PHENYF, URICACID, POCGLU in the last 72 hours. ABG:No results found for: POCPH, PHART, PH, POCPCO2, HHI0PFB, PCO2, POCPO2, PO2ART, PO2, POCHCO3, YVL4QWJ, HCO3, NBEA, PBEA, BEART, BE, THGBART, THB, QDE9QFS, DPPP1XFY, Y4MOITVS, O2SAT, FIO2 No results found for: SPECIAL [...] spine without cord injury, closed, initial encounter ([facility]) 12/09/2022 Yes Pleural effusion, right 12/09/2022 Yes Atrial fibrillation with rapid ventricular response ([facility]) 12/09/2022 Yes Anasarca 12/09/2022 Yes Plan: T11 [...] original note were not included. Occupational Therapy [facility] Occupational Therapy Not Seen Note DATE: 12/10/2022 NAME: Rebekah Moore : 1935 Patient not seen this date for Occupational Therapy due to: Other: Awaiting thoracic/lumbar MRI and orthosx POC following MRI results Next Scheduled Treatment: Will check back PM as able or 12/11/2022 documented in this encounter [facility] [employer] Work Phone: 12-13-2022 Note PROCEDURE: ULTRASOUNDGUIDED RIGHT THORACENTESIS 12/13/2022 [...] chest with one percent lidocaine. A 5 Salvadorean Yueh needle was advanced into the pleural [...] 800 mL clear yellow fluid was removed. [facility] CONSOLIDATED 12-13-2022 Note PROCEDURE: ULTRASOUNDGUIDED RIGHT THORACENTESIS 12/13/2022 [...] chest with one percent lidocaine. A 5 Salvadorean Yueh needle was advanced into the pleural [...] 800 mL clear yellow fluid was removed. [facility] CONSOLIDATED 12-13-2022 History of Present illness Narrative Pt arrives to room with EMS for rt therapeutic thoracentesis JR Pa and CM RT to bedside Site prepped and draped Access obtained on right 800ml of clear dark yellow fluid removed Tolerated well Return to [facility] with transport documented in this encounter [employer] Phone: 12-11-2022 Miscellaneous Notes Contact Type: General Care Coordination Activity Patient was scheduled for f/u with PCP today. This was cancelled, as patient is currently admitted to [facility] for fall and lumbar compression fracture. documented in this encounter [email or web address] 12-11-2022 Telephone encounter Note Contact Type: General Care Coordination Activity Patient was scheduled for f/u with PCP today. This was cancelled, as patient is currently admitted to [facility] for fall and lumbar compression fracture. [email or web address] Evaluation note Diagnosis Fracture of lumbar spine without cord injury, closed, initial encounter (HCC)- Primary Lumbar compression fracture, sequela Pleural effusion, right Unspecified pleural effusion Atrial fibrillation with rapid ventricular response (HCC) Atrial fibrillation Anasarca Edema documented in this encounter [employer] Phone: InstructionsNot on filedocumented in this encounter [email or web address] Advance Directives No Advanced Directives Records FoundLatest Code Status on File Code Status Date Activated Date Inactivated Comments Full Code 12/09/2022 6:00 AM Latest Code Status on File Code Status Date Activated Date Inactivated Comments Full Code 12/09/2022 6:00 AM 12/14/2022 6:44 PM Documents on File Type Date Recorded 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 DNR Physician Order 07/19/2023 10:17 AM Latest Code Status on File Code Status Date Activated Date Inactivated Comments DNR Comfort Care Arrest (DNR-CCA) [place] 07/08/2023 5:51 PM 07/12/2023 5:41 PM Code Status History Code Status Date Activated Date Inactivated Comments DNR Comfort Care Arrest (DNR -CCA) [place] 11/07/2022 7:10 AM 11/08/2022 8:15 PM Full Code 08/15/2022 6:14 PM 08/20/2022 12:34 AM Full Code 07/22/2021 11:21 AM 07/22/2021 5:22 PM Full Code 05/30/2021 2:17 PM 06/02/2021 5:36 PM Summary Purpose Family History No Family History Records FoundNo Family History Records FoundNo Family History Records [...] Possible thora)0900 (Automatically Held - Provider: Thomas Chang MD)2100 [...] Thomas Chang MD)0821 (Given - Provider: Andria Cm RN)1700 (Given - Provider: Andria Cm RN) 0905 [...] - Provider: Britney Mendosa RN - Reason: Other)210 (Given - Provider: Jimmy Dewitt RN) 0857 [...] only 1011 (Given - Provider: Britney Mendosa RN)2104 (Not Given - Provider: Jimmy Dewitt RN [...] Oral, EVERY 6 HOURS PRN, Starting on 12/09/22 at 0712, Until Discontinued, Pain Mild (1-3), Fever, For temp greater than 100.4 F (38 C)
Maximum dose of acetaminophen is 4000 mg from all sources in 24 hours.
Or acetaminophen (TYLENOL) suppository 650 mgJump to med 650 mg, Rectal, EVERY 6 HOURS PRN, Starting on 12/09/22 at 0712, Until Discontinued, Pain Mild (1-3), Fever, For temp greater than 100.4 F (38 C)
Administer if oral route cannot be used.
Group 2: HYDROcodone-acetaminophen (NORCO) 5-325 MG per tablet 1 tabletJump to med 1 tablet, Oral, EVERY 4 HOURS PRN, Starting on 12/09/22 at 0600, Until Discontinued, Pain Moderate (4-6)
Maximum dose of acetaminophen is 4000 mg from all sources in 24 hours.
Or HYDROcodone-acetaminophen (NORCO) 5-325 MG per tablet 2 tabletJump to med 2 tablet, Oral, EVERY 4 HOURS PRN, Starting on 12/09/22 at 0600, Until Discontinued, Pain Severe (7-10)
Maximum dose of acetaminophen is 4000 mg from all sources in 24 hours.
Group 3: ondansetron (ZOFRAN-ODT) disintegrating tablet 4 mgJump to med 4 mg, Oral, EVERY 8 HOURS PRN, Starting on 12/09/22 at 0600, Until Discontinued, Nausea, Vomiting Or [...]
Care Teams (unrecognized sec tion and content) Bioinformaticist Relationship Specialty Start Date End Date Hawa Garzon [address] [place] [id number] PCP - General Heel Former 12/11/22 Bioinformaticist Relationship Specialty Start Date End Date Hawa Garzon [address] [place] [phone] PCP - General Heel Former 12/11/22 Bioinformaticist Relationship Specialty Start Date End Date Hawa Garzon, [employer] [address] [place] [phone] PCP - General Family Medicine 05/30/21 INFORMATION SOURCE (unrecogn ized section and content) DATE CREATED AUTHOR 01/22/2023 [facility] DATE CREATED AUTHOR AUTHOR'S ORGANIZ ATION 02/12/2023 [facility] DATE CREATED AUTHOR AUTHOR'S ORGANIZ ATION 11/17/2023 [facility] FOR RECORDS PERTAINING TO PATIENTS WHO ARE [...] BE BASED ON THE PRIMARY CLINICAL RECORDS. [facility] provides no warranty or guarantee of the accuracy or completeness of information in this document.
[2023-11-22 20:51] LABS: INR 2.88; Prothrombin Time 28.8 sec (9.0-11.6)
== END 2023-11-22 20:19 | disposition home or self-care (01) ==
LOC: LAB 20:18
PROVIDERS: Visit Provider Student in an Organized Health Care Education/Training Program
DX: Z79.01 Long term (current) use of anticoagulants (principal)
CPT/HCPCS: 36415; 85610

== ENCOUNTER 2023-12-07 09:33 | Outpatient (REF) | payer MEDICARE, SELFPAY ==
--- OUTSIDE RECORDS SUMMARY | 2023-12-07 09:37 | XMS_ITS | CCD ---
Author Organization [facility] Care Team Providers Care Supervisor [employer] Name Role Phone Favio Garzonuscarol Primary Care Provider [phone] ZHEN SOLO Referring Unavailable ORTEGA GONZALEZ I [...] not crush or chew. 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 [phone], Fax results to [facility] Ass Patient is at: [address] [place] [address] CALL doctor [id number] tel. [phone], Fax results to [facility] Ass Patient is at: [address] [place] [address] Performed By: #### P T #### [facility] [address] [place] [id number] PT Coag (PPP) [Time] 18.2 s Critically high 12.3-14.9 [facility] Comment on above: Order Comment: CALL doctor [id number] tel. [phone], Fax results to [facility] Ass Patient is at: [address] [place] [address] CALL doctor [id number] tel. [phone], Fax results to [facility] Ass Patient is at: [address] [address] Performed By: #### P T #### [facility] [address] [place] [address] XR PELVIS (MIN 3 VIEWS)on XR PELVIS [...] Solo DO 02/12/23 Final result Normal [facility] CT ABDOMEN PELVIS WO YAZMIN Ton [...] Ac MD 01/24/23 Final result Normal [facility] CT HEAD WO CONTRASTon 2022 CT [...] Ac MD 01/24/23 Final result Normal [facility] CT LUMBAR SPINE WO CONTRASTo n [...] Rosenthal MD 01/24/23 Final result Normal [facility] BASIC METABOLIC PANELon 06-0 Anion gap [Moles/Vol] 9 mmol/L Normal 7-20 [facility] Comment on above: Performed By: #### L [id number] #### [facility] (BEAKER) [address] [place] [address] Calcium [Mass/Vol] 8.5 mg/dL Low 8.6-10.3 [facility] Comment on above: Performed By: #### L [id number] #### [facility] (BEAKER) [address] [place] [address] Chloride [Moles/Vol] 106 mmol/L Normal 98-107 [facility] Comment on above: Performed By: #### L [id number] #### [facility] (BEAKER) [address] [place] [address] CO2 [Moles/Vol] 28 mmol/L Normal 21-31 [facility] Comment on above: Performed By: #### L [id number] #### [facility] ([facility]AKER) [address] [place] [address] Creatinine [Mass/Vol] 0.64 mg/dL Normal 0.60-1.20 [facility] Comment on above: Performed By: #### L [id number] #### [facility] (BEAKER) [address] [place] [address] GLOMERULAR FILTRATION RATE ML/MIN/1.73 SQ M.PREDICTED 86.0 mL/min/1.73m*2 Normal >60.0 [facility] Comment on above: Result Comment: [facility]???s estimated glomerular filtration rate (eGFR) will no [...] individuals. Performed By: #### L [id number] #### [facility] ([facility]) [address] [place] [address] Glucose [Mass/Vol] 78 mg/dL Normal 70-100 [facility] Comment on above: Performed By: #### L [id number] #### [facility] ([facility]) [address] [place] [address] Potassium [Moles/Vol] 4.5 mmol/L Normal 3.5-5.[address] [facility] Comment on above: Performed By: #### L [id number] #### [facility] ([facility]) [address] [place] [address] Sodium [Moles/Vol] 138 mmol/L Normal 136-145 [facility] Comment on above: Performed By: #### L [id number] #### [facility] ([facility]) [address] [place] [address] Urea nitrogen [Mass/Vol] 17 mg/dL Normal 7-25 [facility] Comment on above: Performed By: #### L [id number] #### [facility] ([facility]) [address] [place] [address] UREA NITROGEN/CREATININE (MASS RATIO) IN SER/PLAS 26.6 Normal [facility] Comment on above: Performed By: #### L [id number] #### [facility] ([facility]) [address] [place] [address] CBCon 01-16-2023 Erythrocyte distribution width (RBC) [Ratio] 21.6 % High 11.5-15.0 [facility] Comment on above: Performed By: #### L [id number] #### [facility] ([facility]) [address] [place] [address] ERYTHROCYTE MEAN CORPUSCULAR HEMOGLOBIN CONCENTRATION (G/DL) BY AUTOMATED 30.9 g/dL Low 32.0-35.0 [facility] Comment on above: Performed By: #### L [id number] #### [facility] ([facility]) [address] [place] [address] Hematocrit (Bld) [Volume fraction] 37.6 % Normal 36.0-48.0 [facility] Comment on above: Performed By: #### L [id number] #### [facility] ([facility]) [address] [place] [address] Hemoglobin (Bld) [Mass/Vol] 11.6 g/dL Low 12.0-15.0 [facility] Comment on above: Performed By: #### L [id number] #### [facility] ([facility]) [address] [place] [address] MCH (RBC) [Entitic mass] 29.5 pg Normal 27.0-33.0 [facility] Comment on above: Performed By: #### L [id number] #### [facility] ([facility]) [address] [place] [address] MCV (RBC) [Entitic vol] 95.7 fL Normal 82.0-98.0 [facility] Comment on above: Performed By: #### L [id number] #### [facility] ([facility]) [address] [place] [address] PLATELETS (10*3/UL) IN BLOOD AUTOMATED COUNT 313 10*3/uL Normal 150-400 [facility] Comment on above: Performed By: #### L [id number] #### [facility] ([facility]) [address] [place] [address] RBC (Bld) [#/Vol] 3.93 10*6/uL Normal 3.80-5.00 [facility] Comment on above: Performed By: #### L [id number] #### [facility] ([facility]) [address] [place] [address] WBC (Bld) [#/Vol] 7.89 10*3/uL Normal 4.00-10.60 [facility] Comment on above: Performed By: #### L [id number] #### [facility] ([facility]) [address] [place] [address] URINALYSISon 01-15-2023 BILIRUBIN, TOTAL PRESENCE IN URINE Negative Normal Negative [facility] Comment on above: Order Comment: Micro scopics not performed on urines with negative chemical reactions unless requested on original order. Performed By: #### L [id number] #### [facility] ([facility]) [address] [place] [address] Clarity (U) Clear Normal Clear [facility] Comment on above: Order Comment: Micro scopics not performed on urines with negative chemical reactions unless requested on original order. Performed By: #### L [id number] #### [facility] ([facility]) [address] [place] [address] Color (U) Yellow Normal Yellow [facility] Comment on above: Order Comment: Micro scopics not performed on urines with negative chemical reactions unless requested on original order. Performed By: #### L [id number] #### [facility] ([facility]) [address] [place] [address] Glucose (U) [Mass/Vol] Negative Normal Negative [facility] Comment on above: Order Comment: Micro scopics not performed on urines with negative chemical reactions unless requested on original order. Performed By: #### L [id number] #### [facility] ([facility]) [address] [place] [address] HEMOGLOBIN PRESENCE IN URINE Negative Normal Negative [facility] Comment on above: Order Comment: Micro scopics not performed on urines with negative chemical reactions unless requested on original order. Performed By: #### L [id number] #### [facility] ([facility]) [address] [place] [address] Ketones Ql (U) Negative Normal Negative [facility] Comment on above: Order Comment: Micro scopics not performed on urines with negative chemical reactions unless requested on original order. Performed By: #### L [id number] #### [facility] ([facility]) [address] [place] [address] LEUKOCYTE ESTERASE PRESENCE IN URINE BY TEST STRIP Negative Normal Negative [facility] Comment on above: Order Comment: Micro scopics not performed on urines with negative chemical reactions unless requested on original order. Performed By: #### L [id number] #### [facility] ([facility]) [address] [place] [address] NITRITE PRESENCE IN URINE Negative Normal Negative [facility] Comment on above: Order Comment: Micro scopics not performed on urines with negative chemical reactions unless requested on original order. Performed By: #### L [id number] #### [facility] ([facility]) [address] [facility] [place] [address] pH (U) 7.0 [pH] Normal 5.0-8.0 [facility] Comment on above: Order Comment: Micro scopics not performed on urines with negative chemical reactions unless requested on original order. Performed By: #### L [id number] #### [facility] ([facility]) [address] [place] [address] Protein (U) [Mass/Vol] Negative Normal Negative [facility] Comment on above: Order Comment: Micro scopics not performed on urines with negative chemical reactions unless requested on original order. Performed By: #### L [id number] #### [facility] ([facility]) [address] [place] [address] Specific gravity (U) [Rel density] 1.013 Low 1.015-1.020 [facility] Comment on above: Order Comment: Micro scopics not performed on urines with negative chemical reactions unless requested on original order. Performed By: #### L [id number] #### [facility] ([facility]) [address] [place] [address] URINE CULTURE, ROUTINEon Ampicillin [Susc] >8 Resistant [facility] Comment on above: Performed By: #### L [id number] #### [facility] ([facility]) [address] [place] [address] DAPTOmycin [Susc] 2 ug/ml Susceptible [facility] Comment on above: Performed By: #### L [id number] #### [facility] ([facility]) [address] [place] [address] Linezolid [Susc] <=1 Susceptible [facility] Comment on above: Performed By: #### L [id number] #### [facility] ([facility]) [address] [place] [address] Vancomycin [Susc] >16 Resistant [facility] Comment on above: Performed By: #### L [id number] #### [facility] ([facility]) [address] [place] [address] B-TYPE NATRIURETIC PEPTIDEon 12-28-2022 Natriuretic peptide B (Bld) [Mass/Vol] 1447 pg/mL High 0-100 [facility] Comment on above: Performed By: #### L [id number] #### [facility] ([facility]) [address] [place] [address] BASIC METABOLIC PANELon 12-10 Anion gap [Moles/Vol] 23 mmol/L High 7-20 [facility] Comment on above: Performed By: #### L [id number] #### [facility] ([facility]) [address] [place] [address] Calcium [Mass/Vol] 8.1 mg/dL Low 8.6-10.3 [facility] Comment on above: Performed By: #### L [id number] #### [facility] ([facility]) [address] [place] [address] Chloride [Moles/Vol] 108 mmol/L High 98-107 [facility] Comment on above: Performed By: #### L [id number] #### [facility] ([facility]) [address] [place] [address] CO2 [Moles/Vol] 13 mmol/L Invalid Interpretation Code 21- [facility] Comment on above: Performed By: #### L [id number] #### [facility] ([facility]) [address] [place] [address] Creatinine [Mass/Vol] 0.86 mg/dL Normal 0.60-1.20 [facility] Comment on above: Performed By: #### L [id number] #### [facility] ([facility]) [address] [place] [address] GLOMERULAR FILTRATION RATE ML/MIN/1.73 SQ M.PREDICTED 65.8 mL/min/1.73m*2 Normal >60.0 [facility] Comment on above: Result Comment: [facility]???s estimated glomerular filtration rate (eGFR) will no [...] individuals. Performed By: #### L [id number] #### [facility] ([facility]) [address] [place] [address] Glucose [Mass/Vol] 41 mg/dL Invalid Interpretation Code 70-100 [facility] Comment on above: Performed By: #### L [id number] #### [facility] ([facility]) [address] [place] [address] Potassium [Moles/Vol] 5.3 mmol/L High 3.5-5.1 [facility] Comment on above: Performed By: #### L [id number] #### [facility] ([facility]) [address] [place] [address] Sodium [Moles/Vol] 139 mmol/L Normal 136-145 [facility] Comment on above: Performed By: #### L [id number] #### [facility] ([facility]) [address] [place] [address] Urea nitrogen [Mass/Vol] 20 mg/dL Normal 7-25 [facility] Comment on above: Performed By: #### L [id number] #### [facility] (BEAKER) [address] [place] [address] UREA NITROGEN/CREATININE (MASS RATIO) IN SER/PLAS 23.3 Normal [facility] Comment on above: Performed By: #### L [id number] #### [facility] (BEAKER) [address] [place] [address] XR CHEST PORTABLEon 12-27-19 XR CHEST PORTABLE [...] Rizo MD 12/25/22 Final result Normal [facility] B-TYPE NATRIURETIC PEPTIDEon 12-25-2022 Natriuretic peptide B (Bld) [Mass/Vol] 1854 pg/mL High 0-100 [facility] Comment on above: Performed By: #### L [id number] #### [facility] (BEAKER) [address] [place] [address] BASIC METABOLIC PANELon 12-10 Anion gap [Moles/Vol] 15 mmol/L Normal 7-20 [facility] Comment on above: Performed By: #### L [id number] #### [facility] (BEAKER) [address] [place] [address] Calcium [Mass/Vol] 8.0 mg/dL Low 8.6-10.3 [facility] Comment on above: Performed By: #### L [id number] #### [facility] (BEAKER) [address] [place] [address] Chloride [Moles/Vol] 106 mmol/L Normal 98-107 [facility] Comment on above: Performed By: #### L [id number] #### [facility] ([facility]) [address] [place] [address] CO2 [Moles/Vol] 22 mmol/L Normal 21-31 [facility] Comment on above: Performed By: #### L [id number] #### [facility] ([facility]) [address] [place] [address] Creatinine [Mass/Vol] 0.77 mg/dL Normal 0.60-1.20 [facility] Comment on above: Performed By: #### L [id number] #### [facility] ([facility]) [address] [place] [address] GLOMERULAR FILTRATION RATE ML/MIN/1.73 SQ M.PREDICTED 75.1 mL/min/1.73m*2 Normal >60.0 [facility] Comment on above: Result Comment: [facility]???s estimated glomerular filtration rate (eGFR) will no [...] individuals. Performed By: #### L [id number] #### [facility] ([facility]) [address] [place] [address] Glucose [Mass/Vol] 48 mg/dL Invalid Interpretation Code 70-100 [facility] Comment on above: Performed By: #### L [id number] #### [facility] ([facility]) [address] [place] [address] Potassium [Moles/Vol] 5.3 mmol/L High 3.5-5.1 [facility] Comment on above: Result Comment: M-CH EMISTRY SPECIMEN MODERATELY HEMOLYZED RESULTS MAY NOT BE ACCURATE Performed By: #### L [id number] #### [facility] (BEAKER) [address] [place] [address] Sodium [Moles/Vol] 138 mmol/L Normal 136-145 [facility] Comment on above: Performed By: #### L [id number] #### [facility] (BEAKER) [address] [place] [address] Urea nitrogen [Mass/Vol] 14 mg/dL Normal 7-25 [facility] Comment on above: Performed By: #### L [id number] #### [facility] (BEAKER) [address] [place] [address] UREA NITROGEN/CREATININE (MASS RATIO) IN SER/PLAS 18.2 Normal [facility] Comment on above: Performed By: #### L [id number] #### [facility] (BEAKER) [address] [place] [address] Basic Metabolic Profon 12-25 Anion gap [Moles/Vol] 12 mmol/L Normal 9-17 [facility] Comment on above: Performed By: #### U WILLY UAX #### [place] [id number] [employer]: Paddy Juares MD Calcium [Mass/Vol] 8.4 mg/dL Low 8.6-10.4 [facility] Comment on above: Performed By: #### Jonh AGUILERA UAX #### [facility] [id number] [place], [place] [id number] [employer]: Paddy Juares MD Chloride [Moles/Vol] 103 mmol/L Normal 98-107 [facility] Comment on above: Performed By: #### U WILLY UAX #### [facility] [id number] [place], [place] [id number] [employer]: Paddy Juares MD CO2 [Moles/Vol] 25 mmol/L Normal 20-31 [facility] Comment on above: Performed By: #### U MICAO, UAX #### [place] [id number] [employer]: Paddy Juares MD Creatinine [Mass/Vol] 0.72 mg/dL Normal 0.50-0.90 [facility] Comment on above: Performed By: #### U MICAO, UAX #### [place] [address] [employer]: Paddy Juares MD GFR/1.73 sq M.predicted among non-blacks MDRD (S/P/Bld) [Vol rate/Area] mL/min/{1.73_m2} Normal >60 [facility] Comment on above: Result Comment: These [...] Performed By: #### U MAILEO, UAX #### [place] [address] [employer]: Paddy Juares MD Glucose [Mass/Vol] 79 mg/dL Normal 70-99 [facility] Comment on above: Performed By: #### U MAILEO, UAX #### [place] [id number] [employer]: Paddy Juares MD Potassium [Moles/Vol] 3.7 mmol/L Normal 3.7-5.3 [facility] Comment on above: Performed By: #### U MAILEO, UAX #### [place] [address] [employer]: Paddy Juares MD Sodium [Moles/Vol] 140 mmol/L Normal 135-144 [facility] Comment on above: Performed By: #### Jonh AGUILERA UAX #### [address] [address] [employer]: Paddy Juares MD Urea nitrogen [Mass/Vol] 13 mg/dL Normal 8-23 [facility] Comment on above: Performed By: #### U WILLY UAX #### [place] [id number] [employer]: Paddy Juares MD Brain Natri. Peptideon 12-25 Natriuretic peptide B (Bld) [Mass/Vol] 8736 pg/mL High <300 [facility] Comment on above: Result Comment: An age-independent cutoff point of 300 pg/ml has a 98% negative predictive value excluding acute heart failure. Performed By: #### Jonh AGUILERA UAX #### [place] [id number] [employer]: Paddy Juares MD CBCon 12-25-2022 Hemoglobin (Bld) [Mass/Vol] 14.0 g/dL Normal 12.0-16.0 [facility] Comment on above: Performed By: #### L [id number] #### [facility] (BEAKER) [address] [place] [address] Performed By: #### U WILLY UAX #### [address] [address] [employer]: Paddy Juares MD Erythrocyte distribution width (RBC) [Ratio] 21.7 % High 11.5-15.0 [facility] Comment on above: Performed By: #### L [id number] #### [facility] (BEAKER) [address] [place] [address] ERYTHROCYTE MEAN CORPUSCULAR HEMOGLOBIN CONCENTRATION (G/DL) BY AUTOMATED 31.1 g/dL Low 32.0-35.0 [facility] Comment on above: Performed By: #### L [id number] #### [facility] ([facility]) [address] [place] [address] Hematocrit (Bld) [Volume fraction] 45.0 % Normal 36.0-48.0 [facility] Comment on above: Performed By: #### L [id number] #### [facility] ([facility]) [address] [place] [address] MCH (RBC) [Entitic mass] 28.9 pg Normal 27.0-33.0 [facility] Comment on above: Performed By: #### L [id number] #### [facility] ([facility]) [address] [place] [address] MCV (RBC) [Entitic vol] 92.8 fL Normal 82.0-98.0 [facility] Comment on above: Performed By: #### L [id number] #### [facility] ([facility]) [address] [place] [address] PLATELETS (10*3/UL) IN BLOOD AUTOMATED COUNT 327 10*3/uL Normal 150-400 [facility] Comment on above: Performed By: #### L [id number] #### [facility] ([facility]) [address] [place] [address] RBC (Bld) [#/Vol] 4.85 10*6/uL Normal 3.80-5.00 [facility] Comment on above: Performed By: #### L [id number] #### [facility] ([facility]) [address] [place] [address] WBC (Bld) [#/Vol] 9.86 10*3/uL Normal 4.00-10.60 [facility] Comment on above: Performed By: #### L [id number] #### [facility] (BEAKER) [address] [place] [address] CBC with Diffon 12-25-2022 Abs. Basophil 0.00 k/uL Normal 0.0-0.2 [facility] Comment on above: Performed By: #### U WILLY, UAX #### [place] [address] [employer]: Paddy Juares MD Abs.Neutrophil (Seg) 9.63 k/uL High 1.8-7.7 [facility] Comment on above: Performed By: #### U WILLY UAX #### [place] [address] [employer]ice: Paddy Juares MD Basophils/100 WBC (Bld) 0 % Normal 0-2 [facility] Comment on above: Performed By: #### Jonh AGUILERA UAX #### [place] [address] [employer]ice: Paddy Juares MD Eosinophils (Bld) [#/Vol] 0.00 10*3/uL Normal 0.0-0.4 [facility] Comment on above: Performed By: #### Jonh AGUILERA UAX #### [place] [address] [employer]: Paddy Juares MD Eosinophils/100 WBC (Bld) 0 % Low 1-4 [facility] Comment on above: Performed By: #### U WILLY UAX #### [place] [address] [employer] App[employer]ice: Paddy Juares MD Lymphocytes (Bld) [#/Vol] 0.32 10*3/uL Low 1.0-4.8 [facility] Comment on above: Performed By: #### Jonh AGUILERA UAX #### [place] [address] [employer] Apprentice: Paddy Juarse MD Lymphocytes/100 WBC (Bld) 3 % Low 24-44 [facility] Comment on above: Performed By: #### U MICAO, UAX #### [place] [address] [employer]rentice: Paddy Juares MD Monocytes (Bld) [#/Vol] 0.75 10*3/uL Normal 0.1-0.8 [facility] Comment on above: Performed By: #### U MAILEO, UAX #### [place] [address] [employer]ice: Paddy Juares MD Monocytes/100 WBC (Bld) 7 % Normal 1-7 [facility] Comment on above: Performed By: #### U MAILEO, UAX #### [place] [address] [employer] Apprentice: Paddy Juares MD Morphology Juan Manuel (Bld) [Interp] ANISOCYTOSIS PRESENT Normal [facility] Comment on above: Performed By: #### U MAILEO, UAX #### [place] [address] [employer] Apprentice: Paddy Juares MD Neutrophil (Seg) 90 % High 36-66 [facility] Comment on above: Performed By: #### U MICAO, UAX #### [place] [address] [employer] Apprentice: Paddy Juares MD Erythrocyte distribution width (RBC) [Ratio] 23.0 % High 12.5-15.4 [facility] Comment on above: Performed By: #### U MAILEO, UAX #### [place] [address] [employer]ice: Paddy Juares MD Hematocrit (Bld) [Volume fraction] 44.7 % Normal 36-46 [facility] Comment on above: Performed By: #### U MAILEO, UAX #### [place] [address] [employer] Apprentice: Paddy Juares MD MCH (RBC) [Entitic mass] 29.1 pg Normal 26-34 [facility] Comment on above: Performed By: #### U MAILEO, UAX #### [place] [address] [employer] Apprentice: Paddy Juares MD MCHC (RBC) [Mass/Vol] 31.3 g/dL Normal 31-37 [facility] Comment on above: Performed By: #### U WILLY, UAX #### [place] [address] [employer] Apprentice: Paddy Juares MD MCV (RBC) [Entitic vol] 92.9 fL Normal 80-100 [facility] Comment on above: Performed By: #### U MAILEO, UAX #### [place] [address] [employer] Apprentice: Paddy Juares MD Platelet mean volume (Bld) [Entitic vol] 10.5 fL Normal 8.0-14.0 [facility] Comment on above: Performed By: #### U MICAO, UAX #### [place] [address] [employer] Apprentice: Paddy Juares MD Platelets (Bld) [#/Vol] 289 10*3/uL Normal 140-450 [facility] Comment on above: Performed By: #### U MICAO, UAX #### [address] [address] [employer] Apprentice: Paddy Juares MD RBC (Bld) [#/Vol] 4.81 10*6/uL Normal 4.0-5.2 [facility] Comment on above: Performed By: #### U MICAO, UAX #### [address] [id number] [employer]ice: Paddy Juares MD WBC (Bld) [#/Vol] 10.7 10*3/uL Normal 3.5-11.0 [facility] Comment on above: Performed By: #### U MICAO, UAX #### [place] [address] [employer] Apprentice: Paddy Juares MD Specimen Rejectionon 023 Reason for rejection Unable to perform testing: Specimen quantity not sufficient. Normal [facility] Comment on above: Performed By: #### U MICAO, UAX #### [address] [address] [employer] Apprentice: Paddy Juares MD Source of sample .BLOOD Normal [facility] Comment on above: Performed By: #### U MICAO, UAX #### [address] [id number] [employer] Apprentice: Paddy Juares MD Test ordered BMP TROPI BNP [facility] Comment on above: Performed By: #### U MICAO, UAX #### [address] [id number] [employer]ice: Paddy Juares MD Troponinon 12-25-2022 Troponin, High Sens 51 ng/L High 0-14 [facility] Comment on above: Result Comment: High Sensitivity Troponin values cannot be compared with other Troponin methodologies. Performed By: #### T ROPI #### [address] [address] [employer]ice: Paddy Juares MD Troponin, High Sens 50 ng/L High 0-14 [facility] Comment on above: Result Comment: High Sensitivity Troponin values cannot be compared with other Troponin methodologies. Performed By: #### U MICAO, UAX #### [place] [address] [employer]ice: Paddy Juares MD UA w/Reflex Cultureon 2022 Bilirubin, SemiQt,Ur Negative Normal NEG [facility] Comment on above: Performed By: #### U MICAO, UAX #### [place] [address] [employer] Apprentice: Paddy Juares MD Blood, Urine Negative Normal NEG [facility] Comment on above: Performed By: #### U MICAO, UAX #### [place] [address] [employer] Apprentice: Paddy Juares MD Clarity (U) Clear Normal CLEAR [facility] Comment on above: Performed By: #### U MICAO, UAX #### [place] [address] [employer] Apprentice: Paddy Juares MD Color (U) Yellow Normal YEL [facility] Comment on above: Performed By: #### U MICAO, UAX #### [place] [address] [employer] Apprentice: Paddy Juares MD Glucose Ql (U) Negative Normal NEG [facility] Comment on above: Performed By: #### U MICAO, UAX #### [place] [address] [employer] Apprentice: Paddy Juares MD Ketones Ql (U) Negative Normal NEG [facility] Comment on above: Performed By: #### U MICAO, UAX #### [place] [address] [employer] Apprentice: Paddy Juares MD Leukocyte esterase Test strip Ql (U) Negative Normal NEG [facility] Comment on above: Performed By: #### U MICAO, UAX #### [place] [address] [employer] Apprentice: Paddy Juares MD Nitrite,Ur Positive Abnormal NEG [facility] Comment on above: Performed By: #### U MICAO, UAX #### [place] [address] [employer] Apprentice: Paddy Juares MD PH,Ur 8.0 Normal 5.0-8.0 [facility] Comment on above: Performed By: #### U MICAO, UAX #### [place] [address] [employer] Apprentice: Paddy Juares MD Protein Ql (U) Negative Normal NEG [facility] Comment on above: Performed By: #### U MICAO, UAX #### [place] [address] [employer] Apprentice: Paddy Juares MD Spec. [place],Ur 1.015 Normal 1.005-1.[address] [facility] Comment on above: Performed By: #### U MICAO, UAX #### [facility] [address] [place], [place] [id number] [employer] App[employer]ice: Paddy Juares MD Urobilinogen,Ur Normal Normal NORM [facility] Comment on above: Performed By: #### U MICAO, UAX #### [facility] [address] [place], [place] [id number] [employer] App[employer]ice: Paddy Juares MD URINALYSISon 12-25-2022 BILIRUBIN, TOTAL PRESENCE IN URINE Negative Normal Negative [facility] Comment on above: Order Comment: Micro scopics not performed on urines with negative chemical reactions unless requested on original order. Performed By: #### L [id number] #### [facility] ([facility]) [address] [place] [address] Clarity (U) Clear Normal Clear [facility] Comment on above: Order Comment: Micro scopics not performed on urines with negative chemical reactions unless requested on original order. Performed By: #### L [id number] #### [facility] ([facility]) [address] [place] [address] Color (U) Yellow Normal Yellow [facility] Comment on above: Order Comment: Micro scopics not performed on urines with negative chemical reactions unless requested on original order. Performed By: #### L [id number] #### [facility] ([facility]) [address] [place] [address] Glucose (U) [Mass/Vol] Negative Normal Negative [facility] Comment on above: Order Comment: Micro scopics not performed on urines with negative chemical reactions unless requested on original order. Performed By: #### L [id number] #### [facility] ([facility]) [address] [place] [address] HEMOGLOBIN PRESENCE IN URINE Negative Normal Negative [facility] Comment on above: Order Comment: Micro scopics not performed on urines with negative chemical reactions unless requested on original order. Performed By: #### L [id number] #### [facility] ([facility]) [address] [place] [address] Ketones Ql (U) Negative Normal Negative [facility] Comment on above: Order Comment: Micro scopics not performed on urines with negative chemical reactions unless requested on original order. Performed By: #### L [id number] #### [facility] ([facility]) [address] [place] [address] LEUKOCYTE ESTERASE PRESENCE IN URINE BY TEST STRIP Negative Normal Negative [facility] Comment on above: Order Comment: Micro scopics not performed on urines with negative chemical reactions unless requested on original order. Performed By: #### L [id number] #### [facility] ([facility]) [address] [place] [address] NITRITE PRESENCE IN URINE Negative Normal Negative [facility] Comment on above: Order Comment: Micro scopics not performed on urines with negative chemical reactions unless requested on original order. Performed By: #### L [id number] #### [facility] ([facility]) [address] [place] [address] pH (U) 8.0 [pH] Normal 5.0-8.0 [facility] Comment on above: Order Comment: Micro scopics not performed on urines with negative chemical reactions unless requested on original order. Performed By: #### L [id number] #### [facility] ([facility]) [address] [facility] [place] [address] Protein (U) [Mass/Vol] Negative Normal Negative [facility] Comment on above: Order Comment: Micro scopics not performed on urines with negative chemical reactions unless requested on original order. Performed By: #### L [id number] #### [facility] ([facility]) [address] [place] [address] Specific gravity (U) [Rel density] 1.009 Low 1.015-1.020 [facility] Comment on above: Order Comment: Micro scopics not performed on urines with negative chemical reactions unless requested on original order. Performed By: #### L [id number] #### [facility] ([facility]) [address] [place] [address] URINE CULTURE, ROUTINEon Bacteria identified Cx Nom (U) <10,000 CFU/ML No Significant Growth Normal [facility] Comment on above: Performed By: #### L [id number] #### [facility] ([facility]) [address] [facility] [place] [address] Urinalysis,Microon 3 Bacteria MANY Abnormal NONE [facility] Comment on above: Performed By: #### U MAILEO, UAX #### [address] [id number] [employer] Apprentice: Paddy Juares MD Epithelial cells LM Ql (Urine sed) 0 TO 2 Normal 0-5 [facility] Comment on above: Performed By: #### U WILLY, UAX #### [place] [address] [employer] Apprentice: Paddy Juares MD Other Observations Utilizing a urinalysis as the only screening method to exclude a potential Abnormal NREQ [facility] Comment on above: Result Comment: urop athogen can be unreliable in many patient populations. Rapid screening tests are less sensitive than culture and if UTI is a clinical possibility, culture should be considered despite a negative urinalysis. Performed By: #### U WILLY, UAX #### [place] [address] [employer]ice: Paddy Juares MD Urine RBC's 0 TO 2 Normal 0-2 [facility] Comment on above: Performed By: #### U WILLY, UAX #### [address] [id number] [employer] Apprentice: Paddy Juares MD Urine WBC's 0 TO 2 Normal 0-5 [facility] Comment on above: Performed By: #### U WILLY, UAX #### [facility] [address] [place] [id number] [employer] Apprentice: Paddy Juares MD BASIC METABOLIC PANELon 05-0 Anion gap [Moles/Vol] 9 mmol/L Normal 7-20 [facility] Comment on above: Performed By: #### L [id number] #### [facility] ([facility]) [address] [place] [address] Calcium [Mass/Vol] 7.5 mg/dL Low 8.6-10.3 [facility] Comment on above: Performed By: #### L [id number] #### [facility] ([facility]) [address] [place] [address] Chloride [Moles/Vol] 101 mmol/L Normal 98-107 [facility] Comment on above: Performed By: #### L [id number] #### [facility] ([facility]) [address] [place] [address] CO2 [Moles/Vol] 36 mmol/L High 21-31 [facility] Comment on above: Performed By: #### L [id number] #### [facility] ([facility]) [address] [place] [address] Creatinine [Mass/Vol] 0.83 mg/dL Normal 0.60-1.20 [facility] Comment on above: Performed By: #### L [id number] #### [facility] ([facility]) [address] [place] [address] GLOMERULAR FILTRATION RATE ML/MIN/1.73 SQ M.PREDICTED 68.6 mL/min/1.73m*2 Normal >60.0 [facility] Comment on above: Result Comment: [facility]???s estimated glomerular filtration rate (eGFR) will no [...] individuals. Performed By: #### L [id number] #### [facility] ([facility]) [address] [place] [address] Glucose [Mass/Vol] 136 mg/dL High 70-100 [facility] Comment on above: Performed By: #### L [id number] #### [facility] ([facility]) [address] [place] [address] Potassium [Moles/Vol] 3.3 mmol/L Low 3.5-5.1 [facility] Comment on above: Performed By: #### L [id number] #### [facility] ([facility]) [address] [place] [address] Sodium [Moles/Vol] 143 mmol/L Normal 136-145 [facility] Comment on above: Performed By: #### L [id number] #### [facility] ([facility]) [address] [place] [address] Urea nitrogen [Mass/Vol] 17 mg/dL Normal 7-25 [facility] Comment on above: Performed By: #### L [id number] #### [facility] ([facility]) [address] [place] [address] UREA NITROGEN/CREATININE (MASS RATIO) IN SER/PLAS 20.5 Normal [facility] Comment on above: Performed By: #### L [id number] #### [facility] ([facility]) [address] [place] [address] CBCon 12-17-2022 Erythrocyte distribution width (RBC) [Ratio] 20.5 % High 11.5-15.0 [facility] Comment on above: Performed By: #### L [id number] #### [facility] ([facility]) [address] [place] [address] ERYTHROCYTE MEAN CORPUSCULAR HEMOGLOBIN CONCENTRATION (G/DL) BY AUTOMATED 29.4 g/dL Low 32.0-35.0 [facility] Comment on above: Performed By: #### L [id number] #### [facility] ([facility]) [address] [place] [address] Hematocrit (Bld) [Volume fraction] 43.6 % Normal 36.0-48.0 [facility] Comment on above: Performed By: #### L [id number] #### [facility] ([facility]) [address] [place] [address] Hemoglobin (Bld) [Mass/Vol] 12.8 g/dL Normal 12.0-15.0 [facility] Comment on above: Performed By: #### L [id number] #### [facility] ([facility]) [address] [place] [address] MCH (RBC) [Entitic mass] 28.1 pg Normal 27.0-33.0 [facility] Comment on above: Performed By: #### L [id number] #### [facility] ([facility]) [address] [place] [address] MCV (RBC) [Entitic vol] 95.6 fL Normal 82.0-98.0 [facility] Comment on above: Performed By: #### L [id number] #### [facility] ([facility]) [address] [place] [address] PLATELETS (10*3/UL) IN BLOOD AUTOMATED COUNT 210 10*3/uL Normal 150-400 [facility] Comment on above: Performed By: #### L [id number] #### [facility] ([facility]) [address] [place] [address] RBC (Bld) [#/Vol] 4.56 10*6/uL Normal 3.80-5.00 [facility] Comment on above: Performed By: #### L [id number] #### [facility] ([facility]) [address] [place] [address] WBC (Bld) [#/Vol] 6.10 10*3/uL Normal 4.00-10.60 [facility] Comment on above: Performed By: #### L [id number] #### [facility] ([facility]ER) [address] [place] [address] DIGOXIN LEVELon 12-17-2022 DIGOXIN (NG/ML) IN SER/PLAS 1.3 ng/mL Normal 0.7-2 [facility] Comment on above: Performed By: #### L [id number] #### [facility] ([facility]) [address] [place] [address] [address] Strip[address] [facility] Lactate Dehydrogenaseon LDH [Catalytic activity/Vol] 418 U/L High 135-214 [facility] Comment on above: Performed By: #### L D #### [facility] [address] [place] [address] [employer]ice: Rogelio Franks MD #### TROPI, BMP, PT, TP #### [facility] [address] [place], [place] [id number] [employer] Apprentice: Paddy Juares MD Cholesterol in LDL [Mass/Vol] 418 U/L High 135 - 214 U/L [facility] Interpretation and review of laboratory results Abnormal [facility] EKG Rhythm Stripon [address] [facility] No Panel Informationon 12-13 Successful ultrasoun d guided thoracentesis. [facility] Nilo Muro MD - 12/13/2022 PROCEDURE: ULTRASOUNDGUIDED [...] chest with one percent lidocaine. A 5 Welsh Yueh needle was advanced into the pleural [...] was removed. IMPRESSION: Successful ultrasound guided thoracentesis. [facility] [employer] Work Phone: Radiology Study observation (narrative) [facility] [employer] Work Phone: No Panel InformationOrdered By: Nilo Rawls on 12-13-2022 [facility] Work [facility]: Protein, Totalon 12-13-2022 Protein [Mass/Vol] 5.7 g/dL Low 6.4-8.3 [facility] Comment on above: Performed By: #### L D #### [employer] [address] [place] [address] [employer] Apprentice: Rogelio Franks MD #### TROPI, BMP, PT, TP #### [place] [id number] [place] [address] [employer] Apprentice: Paddy Juares MD Interpretation and review of laboratory results Abnormal [facility] [employer] Protein [Mass/Vol] 5.7 g/dL Low 6.4 - 8.3 g/dL [facility] [employer] Lactate, Sepsison 12-12-2022 Lactic Acid, Sepsis 2.1 mmol/L High 0.5-1.9 [facility] Comment on above: Performed By: #### U MAILEO, UAX #### [address] [address] [employer]ice: Paddy Juares MD Interpretation and review of laboratory results Abnormal [facility] Lactic Acid, Sepsis 2.1 mmol/L High 0.5 - 1. 9 mmol/L [facility] Lactic Acid, Sepsis 2.9 mmol/L High 0.5-1.9 [facility] Comment on above: Performed By: #### U MICAO, UAX #### [address] [address] [employer]ice: Paddy Juares MD Interpretation and review of laboratory results Abnormal [facility] Lactic Acid, Sepsis 2.9 mmol/L High 0.5 - 1. 9 mmol/L [facility] Microscopic Urinalysison Bacteria, UA MANY Abnormal None [facility] Epithelial Cells UA TOO NUMEROUS TO COUNT [facility] Interpretation and review of laboratory results Abnormal [facility] Other Observations UA Utilizing a urinalysis as the only screening method to exclude a potential uropathogen can be unreliable in many patient populations. Rapid screening tests are less sensitive than culture and if UTI is a clinical possibility, culture should be considered despite a negative urinalysis. Abnormal NOT REQ. [facility] RBC clumps Auto (Urine sed) [#/Area] 0 TO 2 [facility] WBC, UA 0 TO 2 [facility] UA w/Reflex Cultureon 2022 Bilirubin, SemiQt,Ur Negative Normal NEG [facility] Comment on above: Performed By: #### U AX, UMICAO #### [address] [address] [employer] Apprentice: Paddy Juares MD Blood, Urine Negative Normal NEG [facility] Comment on above: Performed By: #### U AX, UMICAO #### [address] [id number] [employer]ice: Paddy Juares MD Clarity (U) Cloudy Abnormal CLEAR [facility] Comment on above: Performed By: #### U AX, UMICAO #### [address] [id number] [employer] Apprentice: Paddy Juares MD Color (U) Yellow Normal YEL [facility] Comment on above: Performed By: #### U AX, UMICAO #### [address] [address] [employer]rentice: Paddy Juares MD Glucose Ql (U) Negative Normal NEG [facility] Comment on above: Performed By: #### U AX, UMICAO #### [address] [address] [employer]rentice: Paddy Juares MD Ketones Ql (U) Negative Normal NEG [facility] Comment on above: Performed By: #### U AX, UMICAO #### [address] [address] [employer] Apprentice: Paddy Juares MD Leukocyte esterase Test strip Ql (U) Negative Normal NEG [facility] Comment on above: Performed By: #### U AX, UMICAO #### [address] [id number] [employer] Apprentice: Paddy Juares MD Nitrite,Ur Negative Normal NEG [facility] Comment on above: Performed By: #### U AX, UMICAO #### [place] [address] [employer] Apprentice: Paddy Juares MD PH,Ur 7.0 Normal 5.0-8.0 [facility] Comment on above: Performed By: #### U AX, UMICAO #### [place] [address] [employer] Apprentice: Paddy Juares MD Protein Ql (U) Negative Normal NEG [facility] Comment on above: Performed By: #### U AX, UMICAO #### [place] [address] [employer] Apprentice: Paddy Juares MD Spec. [place],Ur 1.015 Normal 1.005-1.[address] [facility] Comment on above: Performed By: #### U AX, UMICAO #### [place] [address] [employer] Apprentice: Paddy Juares MD Urobilinogen,Ur Normal Normal NORM [facility] Comment on above: Performed By: #### U AX, UMICAO #### [place] [address] [employer] Apprentice: Paddy Juares MD Urinalysis with Reflex to Cu ltureon 12-12-2022 Bilirubin Urine Negative NEGATIVE [facility] Color, UA Yellow Yellow [facility] Glucose Auto test strip (U) [Mass/Vol] Negative NEGATIVE [facility] Interpretation and review of laboratory results Abnormal [facility] Ketones (U) [Mass/Vol] Negative NEGATIVE [facility] Leukocyte esterase Auto test strip Ql (U) Negative NEGATIVE [facility] Nitrite Auto test strip Ql (U) Negative NEGATIVE [facility] Protein (U) [Mass/Vol] 7.0 mg/dL 5.0 - 8.0 [facility] Protein (U) [Mass/Vol] Negative NEGATIVE [facility] Specific [place], UA 1.015 1.005 - 1.030 [facility] Turbidity UA Cloudy Abnormal Clear [facility] Urine Hgb Negative NEGATIVE [facility] Urobilinogen, Urine Normal Normal [facility] Urinalysis,Microon 3 Bacteria MANY Abnormal NONE [facility] Comment on above: Performed By: #### U AX UMICAO #### [place] [address] [employer] Apprentice: Paddy Juares MD Epithelial cells LM Ql (Urine sed) TOO NUMEROUS TO COUNT Normal 0-5 [facility] Comment on above: Performed By: #### U AXFRAKNY #### [place] [address] [employer] Apprentice: Paddy Juares MD Other Observations Utilizing a urinalysis as the only screening method to exclude a potential Abnormal NREQ [facility] Comment on above: Result Comment: urop athogen can be unreliable in many patient populations. Rapid screening tests are less sensitive than culture and if UTI is a clinical possibility, culture should be considered despite a negative urinalysis. Performed By: #### U AXMARCELO #### [place] [address] [employer] Apprentice: Paddy Juares MD Urine RBC's 0 TO 2 Normal 0-2 [facility] Comment on above: Performed By: #### U AX UMELEAZARO #### [place] [id number] [employer] Apprentice: Paddy Juares MD Urine WBC's 0 TO 2 Normal 0-5 [facility] Comment on above: Performed By: #### U AX, UMICAO #### [facility] [address] [place] [address] [employer] Apprentice: Paddy Juares MD XR CHEST PORTABLEon 12-13-19 [...] Sánchez MD 12/12/22 Final result Normal [facility] Unchanged chest demonstrating cardiomegaly and right [...] chest demonstrating cardiomegaly and right pleural effusion [employer] Phone: Radiology Study observation (narrative) [employer] Phone: XR CHEST PORTABLEOrdered By: Tim Sánchez on 12-12-2022 [employer] [facility] Work Phone: ECHO Complete 2D W Doppler W ColorOrdered By: Tyrese Clemons on 12-11-2022 Left ventricular Ejection fraction 33 [facility] [employer] [facility] Phone: LVEF MODALITY ECHO [facility] Phone: [facility] [employer] [facility] Phone: ECHO Complete 2D W Doppler W Coloron 12-11-2022 [facility] Transthoracic Echocardiography Report (TTE) Patient Name MINARCIN Date of Study 12/10/2022 REBEKAH Date of 1935 Gender Female Age 87 year(s) Race Room Number PB324 Height: 64 inch, 162.56 cm Corporate ID [id number] Weight: 116 pounds, 52.6 kg # Patient Acct [id number] BSA: 1.55 m^2 BMI: 19.91 kg/m^2 # MR # [id number] Construction Engineering Manager Samy Man, [facility] Interpreting Physician Tyrese Clemons Fellow Referring Nurse Practitioner Interpreting Referring Physician Stephen Gamboa Fellow Type of Study TTE procedure:2D Echocardiogram, M-Mode, Doppler, Color Doppler. Procedure Date Date: 12/10/2022 Start: 03:57 PM Study Location: [facility] Technical Quality: Adequate visualization Indications:Congestiv e heart [...] Clemons, / Result, Unknown Provider - 12/11/2022 [facility] Transthoracic Echocardiography Report (TTE) Patient Name MINARCIN Date of Study 12/10/2022 REBEKAH Date of 1935 Gender Female Age 87 year(s) Race Room Number PB324 Height: 64 inch, 162.56 cm Corporate ID [id number] Weight: 116 pounds, 52.6 kg # Patient Acct [id number] BSA: 1.55 m^2 BMI: 19.91 kg/m^2 # MR # [id number] Construction Engineering Manager Samy Man [facility] Interpreting Physician Tyrese Clemons Fellow Referring Nurse Practitioner Interpreting Referring Physician Stephen Gamboa Fellow Type of Study TTE procedure:2D Echocardiogram, M-Mode, Doppler, Color Doppler. Procedure Date Date: 12/10/2022 Start: 03:57 PM Study Location: [facility] Technical Quality: Adequate visualization Indications:Congestiv e heart [...] Gradient: 1.96 mmHg Estimated PASP: 35.46 mmHg [employer] Work Phone: EKG 12 Leadon 12-11-2022 Atrial Rate 75 BPM AKI [employer] Work Phone: Q-T Interval 418 ms [employer] Phone: QRS Duration 124 ms [employer] Work Phone: QTc Calculation (Bazett) 466 ms [employer] Phone: R [place] 2 degrees [employer] Phone: T [place] -91 degrees [employer] Phone: Ventricular Rate 75 BPM AKI [employer] Work Phone: Atrial fibrillation Right bundle branch block T wave abnormality, consider inferolateral ischemia Abnormal ECG When compared with ECG of 08-DEC-2022 21:14, Vent. rate has decreased BY 54 BPM Right bundle branch block is now Present [facility] STV MUSE Result, Unknown Provider - 12/11/2022 Atrial fibrillation Right bundle branch block T wave abnormality, consider inferolateral ischemia Abnormal ECG When compared with ECG of 08-DEC-2022 21:14, Vent. rate has decreased BY 54 BPM Right bundle branch block is now Present [employer] Work Phone: [facility] [employer] Work Phone: EKG Rhythm Stripon 3 [facility]ERSyncronex [facility] [employer] FLUORO FOR SURGICAL PROCEDUR ESon 12-11-2022 [facility] Radiology exam is complete. No Radiologist dictation. Please follow up with ordering provider. Final result Normal [facility] Radiology exam is complete. No Radiologist dictation. Please follow up with ordering provider. [facility] RIS CONSOLIDATED Basic Metabolic Panelon 05-0 Anion gap [Moles/Vol] 8 mmol/L Low 9 - 17 mmol/L [employer] Calcium [Mass/Vol] 8.4 mg/dL Low 8.6 - 10. 4 mg/dL [facility] Chloride [Moles/Vol] 104 mmol/L 98 - 10 7 mmol/L [facility] CO2 [Moles/Vol] 31 mmol/L 20 - 31 mmol/L [facility] Creatinine [Mass/Vol] 0.99 mg/dL High 0.50 - 0.90 mg/dL [facility] GFR/1.73 sq M.predicted MDRD (S/P/Bld) [Vol rate/Area] 56 mL/min/{1.73_m2} Low - PINF [facility] Comment on above: These results are [...] 121 mg/dL High 70 - 99 mg/dL [facility] Interpretation and review of laboratory results Abnormal [facility] Potassium [Moles/Vol] 3.8 mmol/L 3.7 - 5.3 mmol/L [facility] Sodium [Moles/Vol] 143 mmol/L 135 - 144 mmol/L [facility] Urea nitrogen [Mass/Vol] 24 mg/dL High 8 - 23 mg/dL [facility] Basic Metabolic Profon 12-10 Anion gap [Moles/Vol] 8 mmol/L Low 9-17 [facility] Comment on above: Performed By: #### L D #### [employer] [address] [place] [address] [employer] And Die Maker Apprentice: Rogelio Franks MD #### ABDIRASHID, BMP, PT, TP #### [facility] [address] [place] [address] [employer] Maker Apprentice: Paddy Juares MD Calcium [Mass/Vol] 8.4 mg/dL Low 8.6-10.4 [facility] Comment on above: Performed By: #### L D #### [address] [id number] [employer] Maker Apprentice: Rogelio Franks MD #### TROPI, BMP, PT, TP #### [address] [id number] [employer] Maker Apprentice: Paddy Juares MD Chloride [Moles/Vol] 104 mmol/L Normal 98-107 [facility] Comment on above: Performed By: #### L D #### [address] [id number] [employer] Maker Apprentice: Rogelio Franks MD #### TROPI, BMP, PT, TP #### [address] [address] [employer] Apprentice: Paddy Juares MD CO2 [Moles/Vol] 31 mmol/L Normal 20-31 [facility] Comment on above: Performed By: #### L D #### [address] [id number] [employer] Maker Apprentice: Rogelio Franks MD #### TROPI, BMP, PT, TP #### [address] [address] [employer] Apprentice: Paddy Juares MD Creatinine [Mass/Vol] 0.99 mg/dL High 0.50-0.90 [facility] Comment on above: Performed By: #### L D #### [address] [id number] [employer] Apprentice: Rogelio Franks MD #### TROPI, BMP, PT, TP #### [address] [address] [employer] Apprentice: Paddy Juares MD GFR/1.73 sq M.predicted among non-blacks MDRD (S/P/Bld) [Vol rate/Area] 56 mL/min/{1.73_m2} Low >60 [facility] Comment on above: Result Comment: These [...] secretion. Performed By: #### L D #### [address] [address] [employer] Apprentice: Rogelio Franks MD #### TROPI, BMP, PT, TP #### [address] [address] [employer] Apprentice: Paddy Juares MD Glucose [Mass/Vol] 121 mg/dL High 70-99 [facility] Comment on above: Performed By: #### L D #### [address] [address] [employer] Maker Apprentice: Rogelio Franks MD #### TROPI, BMP, PT, TP #### [address] [address] [employer] Maker Apprentice: Paddy Juares MD Potassium [Moles/Vol] 3.8 mmol/L Normal 3.7-5.3 [facility] Comment on above: Performed By: #### L D #### [address] [address] [employer] Maker Apprentice: Rogelio Franks MD #### TROPI, BMP, PT, TP #### [address] [address] [employer] Maker Apprentice: Paddy Juares MD Sodium [Moles/Vol] 143 mmol/L Normal 135-144 [facility] Comment on above: Performed By: #### L D #### [facility] [address] [place] [id number] [employer] Maker Apprentice: Rogelio Franks MD #### TROPRobyn BMP, PT, TP #### [address] [id number] [employer] Maker Apprentice: Paddy Juares MD Urea nitrogen [Mass/Vol] 24 mg/dL High 8- [facility] Comment on above: Performed By: #### L D #### [address] [id number] [employer] Maker Apprentice: Rogelio Franks MD #### TROPRobyn, BMP, PT, TP #### [address] [address] [employer] Maker Apprentice: Paddy Juares MD EKG 12 Leadon 12-10-2022 Atrial Rate 131 BPM [employer] Phone: Q-T Interval 306 ms [employer] Phone: QRS Duration 114 ms [employer] Phone: QTc Calculation (Bazett) 448 ms [employer] Phone: R [place] 21 degrees [employer] Phone: T [place] -66 degrees [employer] Phone: Ventricular Rate 129 BPM [employer] Phone: Atrial fibrillation with rapid ventricular response ST & T wave abnormality, consider anterior ischemia Abnormal ECG No previous ECGs available [facility] STV MUSE Result, Unknown Provider - 12/10/2022 Atrial fibrillation with rapid ventricular response ST & T wave abnormality, consider anterior ischemia Abnormal ECG No previous ECGs available [employer] Work Phone: [employer] Work Phone: EKG Rhythm Stripon 3 Biom[employer] - Biomolecular Determination MRI LUMBAR SPINE WO CONTRAST on 12-10-2022 [...] Rosenthal MD 12/10/22 Final result Normal [facility] Mild loss of vertebral body height and superior endplate edema versus inflammation at the L3 level that may represent an acute/subacute compression deformity. Remote compression deformity at L1 and L2. Multilevel degenerative change with foraminal narrowing as described above. [facility] RIS CONSOLIDATED EXAMINATION: MRI OF THE LUMBAR [...] stenosis. There is severe bilateral foraminal narrowing. [facility] Thiago Herr MD - 12/10/2022 EXAMINATION: MRI [...] change with foraminal narrowing as described above. [employer] Phone: [employer] Phone: Radiology Study observation (narrative) [employer] Phone: MRI THORACIC SPINE WO CONTRA STon [...] Rosenthal MD 12/10/22 Final result Normal [facility] Remote compression deformity at T4, T6, T7, T8, T10, T11, L1, and L2. Prominent inferior endplate Schmorl's node at T11 with adjacent edema or inflammation. Multilevel degenerative change without significant canal stenosis or foraminal narrowing. Large right-sided pleural effusion and trace left-sided pleural effusion. [facility] CONSOL[facility] EXAMINATION: MRI OF THE [...] no canal stenosis or significant foraminal narrowing. [facility] CON[facility] Thiago Rosenthal MD - [...] pleural effusion and trace left-sided pleural effusion. [employer] Phone: Radiology Study observation (narrative) [employer] Phone: MRI THORACIC SPINE WO CONTRA STOrdered By: Thiago Rosenthal on 12-10-2022 [employer] Phone: PTon 12-10-2022 INR Coag (PPP) [Relative time] 1.2 {INR} Normal [facility] Comment on above: Result Comment: Therapeutic Range: Moderate Anticoagulant Intensity: INR = 2.0-3.0 High Anticoagulant Intensity: INR = 2.5-3.5 Performed By: #### L D #### [employer] [address] [place] [id number] [employer] Apprentice: Rogelio Franks MD #### TROPI, BMP, PT, TP #### [address] [address] [employer] Apprentice: Paddy Juares MD PT Coag (PPP) [Time] 12.5 s Normal 9.4-12.6 [facility] Comment on above: Performed By: #### L D #### [address] [address] [employer] Apprentice: Rogelio Franks MD #### TROPI, BMP, PT, TP #### [address] [address] [employer] Maker Apprentice: Paddy Juares MD [employer] 12-10-2022 INR Coag (PPP) [Relative time] 1.2 {INR} [facility] Comment on above: Therapeutic Range: Moderate Anticoagulant Intensity: INR = 2.0-3.0 High Anticoagulant Intensity: INR = 2.5-3.5 PT Coag (PPP) [Time] 12.5 s [facility] Troponinon 12-10-2022 Troponin, High Sens 35 ng/L High 0-14 [facility] Comment on above: Result Comment: High Sensitivity Troponin values cannot be compared with other Troponin methodologies. Performed By: #### L D #### [address] [address] [employer] Apprentice: Rogelio Franks MD #### TROPI, BMP, PT, TP #### [address] [address] [employer] Apprentice: Paddy Juares MD Interpretation and review of laboratory results Abnormal [facility] Troponin I.cardiac DL <= 0.01 ng/mL [Mass/Vol] 35 ng/L High 0 - 14 ng/L [facility] Comment on above: High Sensitivity Tro ponin values cannot be compared with other Troponin methodologies. [facility] XR CHEST PORTABLEon 12-11-19 XR CHEST [...] Dubois MD 12/10/22 Final result Normal [facility] Right pleural effusion with associated compressive atelectasis. Bibasilar opacities, also likely atelectatic. Infiltrate a consideration. Cardiomegaly with venous hypertension but no radiographic CHF. [facility] CONSOLIDATED EXAMINATION: ONE XRAY VIEW [...] convex-left curvature thoracic spine and some DJD. [facility] Deuce Dubois MD - [...] with venous hypertension but no radiographic CHF. [employer] Phone: Radiology Study observation (narrative) [employer] Phone: XR CHEST PORTABLEOrdered By: Deuce Dubois on 12-10-2022 [employer] Phone: CT LUMBAR SPINE WO CONTRASTo n [...] Bishop MD 12/09/22 Final result Normal [facility] 1. Subacute appearin g fractures involving [...] trace ascites, and at least mild anasarca. [employer] Phone: [employer] Phone: XR LUMBAR SPINE (2-3 VIEWS)o n [...] Bishop MD 12/08/22 Final result Normal [facility] CT LUMBAR SPINE WO CONTRASTo n 12-08-2022 Radiology Study observation (narrative) [employer] Work Phone: XR LUMBAR SPINE (2-3 VIEWS)o n 12-08-2022 1. Age-indeterminate compression fractures of the L1 and L2 superior endplates. Compression deformities at T10 and T11 are favored to be chronic. Consider further seen with MRI or CT. 2. Severe bony demineralization partially limits evaluation for fractures. 3. Moderate lumbar spine degenerative changes associated with moderate levoscoliosis. [facility] CON[facility] EXAMINATION: 3 XRAY VIEWS [...] disc disease. Mild to severe facet arthropathy. [facility] Tim Bishop MD - [...] spine degenerative changes associated with moderate levoscoliosis. [employer] Work Phone: Radiology Study observation (narrative) [employer] Work Phone: XR LUMBAR SPINE (2-3 VIEWS)O rdered By: Tim Bishop on 12-08-2022 [employer] Work Phone: Vital Signs Date Time Vital Sign Value Performing Clinician Jerzy nicole 12-14-2022 14:46-0400 Body height 162.6 cm Abdifatah Bridges III, MD Work Phone: [employer] 12-14-2022 08:15-0400 Body temperature 97.3 [degF] Abdifatah Bridges III, MD Work Phone: [employer] 12-14-2022 08:15-0400 Diastolic blood pressure 65 mm[Hg] Abdifatah Bridges III, MD Work Phone: [employer] 12-14-2022 08:15-0400 Heart rate 71 /min Abdifatah Bridges III, MD Work Phone: [employer] 12-14-2022 08:15-0400 Respiratory rate 16 /min Abdifatah Bridges III, MD Work Phone: [employer] 12-14-2022 08:15-0400 SaO2% (BldA) [Mass fraction] 98 % Abdifatah Bridges III, MD Work Phone: [employer] 12-14-2022 08:15-0400 Systolic blood pressure 110 mm[Hg] Abdifatah Bridges III, MD Work Phone: [employer] 12-14-2022 06:00-0400 Body mass index (BMI) [Ratio] 20.06 kg/m2 Abdifatah Bridges III, MD Work Phone: [employer] 12-14-2022 06:00-0400 Body weight 53 kg Abdifatah Bridges III, MD Work Phone: [facility] 12-13-2022 11:54-0400 Diastolic blood pressure 64 mm[Hg] Stv 2 [facility] 12-13-2022 11:54-0400 SaO2% (BldA) [Mass fraction] 100 % Stv 2 [facility] 12-13-2022 11:54-0400 Systolic blood pressure 112 mm[Hg] Stv 2 [facility] Encounters Encounter Date Encounter Type Care Provider Facility Start: 01-30-2023 End: 01-30-2023 ambulatory [facility] Alcon [facility] Start: 01-24-2023 End: 01-25-2023 Emergency department patient visit [facility] Start: 12-25-2022 End: 12-26-2022 Emergency department patient visit [facility] Start: 12-13-2022 End: 12-16-2022 ambulatory [facility] Start: 12-13-2022 End: 12-15-2022 Subsequent hospital visit by physician [facility] [employer] [address] Special Procedures Comment on above: Arrived Start: 12-11-2022 Telephone encounter Alaina [facility]man [facility] Start: 12-08-2022 End: 12-14-2022 Evaluation and management of inpatient ELOY SULLIVAN [facility] Start: 12-08-2022 End: 12-14-2022 Evaluation and management of inpatient Abdifatah Bridges MD Work Phone: [facility] Med Surg ICU Comment on above: Lumbar [...] Start: 12-11-2022 Fluoroscopy during operation Deuce [employer] DO Work Phone: Start: 12-11-2022 End: 12-11-2022 Perq vert agmntj cavity crtj uni/bi cannulj lmbr Deuce [employer] DO Work Phone: Start: 12-11-2022 Rhythm ecg [...] (2 - Td or Tdap) [facility] Start: 08-15-2032 DTaP/Tdap/Td vaccine (2 - Td or Tdap) DTaP/Tdap/Td vaccine (2 - Td or Tdap) [facility] [employer] Start: 07-12-2024 Adult BMI Screening Adult BMI Screen ing [facility] Start: 07-10-2024 Tobacco Screening Tobacco Screening [facility] Start: 11-14-2023 Depression Screening Depression Scre ening [facility] Start: 04-12-2023 Influenza vaccination Influenza Vacc ine [facility] Start: 03-12-2023 Influenza vaccination Flu vacc ine (Season Ended) [facility] Start: 12-10-2022 Annual Wellness Visi t (AWV) Annual Wellness Visit (AWV) [facility] Start: 2001 Fall Risk Screening Fall Risk Screen ing [facility] Start: 1986 Administration of varicella zoster vaccine Zoster (Shingles) Vaccine (1 of 2) [facility] Start: 1986 Shingles vaccine (1 of 2) [place] gles vaccine (1 of 2) [facility] Start: 1948 Depression Screen Depression Screen [facility] Start: 1942 Pneumococcal 65+ yea rs Vaccine (1 - PCV) Pneumococcal 65+ years Vaccine (1 - PCV) [facility] Start: 1936 COVID-19 Vaccine (#1) COVID-19 Vacci ne (#1) [employer] Start: 1936 Medicare Annual Well ness Visit Medicare Annual Wellness Visit [facility] Start: 1936 Tobacco Counseling Tobacco Counselin g [facility] End: 12-13-2022 Culture, Body Fluid Culture, Body Fluid Microbiology Routine One Time for 1 Occurrences starting 12/13/2022 until 12/13/2022 [employer] Phone: Comment on above: One Time for 1 Occur rences starting 12/13/2022 until 12/13/2022 End: 12-13-2022 Cytology, Non-Tool And Die Engineer Cytology, Non-Tool And Die Engineer Lab Routine One Time for 1 Occurrences starting 12/13/2022 until 12/13/2022 [employer] Phone: Comment on above: One Time for 1 Occur rences starting 12/13/2022 until 12/13/2022 End: 12-13-2022 Glucose, Body Fluid Glucose, Body Fluid Lab Routine One Time for 1 Occurrences starting 12/13/2022 until 12/13/2022 [employer] Phone: Comment on above: One Time for 1 Occur rences starting 12/13/2022 until 12/13/2022 End: 12-11-2022 INITIATE PACU OXYGEN THERAPY PROTOCOL Initiate PACU Oxygen Therapy Protocol Respiratory Care Routine Continuous until discontinued starting 12/11/2022 [employer] Phone: Comment on above: Continuous until dis continued starting 12/11/2022 Intermittent pulse oximetry Pulse Oximetry Spot Check Respiratory Care Routine As Needed until discontinued starting 12/09/2022 [employer] Phone: Comment on above: As Needed until disc ontinued starting 12/09/2022 End: 12-13-2022 Lactate Dehydrogenase, Body Fluid Lactate Dehydrogenase, Body Fluid Lab Routine One Time for 1 Occurrences starting 12/13/2022 until 12/13/2022 [employer] Phone: Comment on above: One Time for 1 Occur rences starting 12/13/2022 until 12/13/2022 Nasal Cannula Oxygen Nasal Cannu la Oxygen Respiratory Care Routine Daily until discontinued starting 12/11/2022 [employer] Phone: Comment on above: Daily until disconti nued starting 12/11/2022 Nasal Cannula Oxygen Nasal Cannu la Oxygen Respiratory Care Routine Daily until discontinued starting 12/12/2022 [employer] Phone: Comment on above: Daily until disconti nued starting 12/12/2022 Oxygen therapy [Mini mum Data Set] Initiate Oxygen Therapy Protocol Respiratory Care Routine As Needed until discontinued starting 12/09/2022 [employer] Phone: Comment on above: As Needed until disc ontinued starting 12/09/2022 Oxygen therapy [Mini mum Data Set] Initiate Oxygen Therapy Protocol Respiratory Care Routine As Needed until discontinued starting 12/11/2022 [employer] Phone: Comment on above: As Needed until disc ontinued starting 12/11/2022 End: 12-13-2022 pH, Body Fluid pH, Body Fluid Lab Routine One Time for 1 Occurrences starting 12/13/2022 until 12/13/2022 [employer] Phone: Comment on above: One Time for 1 Occur rences starting 12/13/2022 until 12/13/2022 End: 12-11-2022 , urine POCT , urine POCT Point of Care Testing Routine One Time for 1 Occurrences starting 12/11/2022 until 12/11/2022 [employer] Phone: Comment on above: One Time for 1 Occur rences starting 12/11/2022 until 12/11/2022 End: 12-13-2022 Protein [Mass/volume] in Serum or Plasma Protein, Total Lab Routine One Time for 1 Occurrences starting 12/13/2022 until 12/13/2022 [employer] Phone: Comment on above: One Time for 1 Occur rences starting 12/13/2022 until 12/13/2022 Immunizations Immunization Date Immunization Notes Care Provider Fa destinysree 08-15-2022 tetanus toxoid, redu rakel diphtheria toxoid, and acellular pertussis vaccine, adsorbed Alaina Hurley RN [facility] Payers Date Payer Category Payer Medicare [id number] 2001 Medicare MEDICARE MEDICAR E PART A & B [id number] 2001-Present [phone] [address] [place] [address] [id number] 1936 Unknown [id number] 1936 Unknown [id number] 1936 Unknown [id number] 1936 Unknown [id number] 1936 Unknown [id number] Social History Date Type Detail Facility Start: 11-07-2022 End: 12-09-2022 Tobacco smoking status OHIS Smokes tobacco daily [employer] Phone: History of tobacco use Cigarette Smoker B ON Saranas Phone: Start: 09-21-2020 End: 12-09-2022 Cigarettes smoked current (pack per day) - Reported 1 [employer] Work Phone: Start: 11-07-2022 End: 12-09-2022 Tobacco use and exposure Smokeless tobacco non-user [employer] Phone: Start: 1935 Sex Assigned At Not on file 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 Never [employer] Work Phone: Average Number of Drinks Not on file [facility] Start: 1935 Sex Assigned At Female [facility]idelis Start: 07-08-2023 Gender identity Identifies as female gender (finding) [facility] Start: 07-08-2023 Sexual orientation Heterosexual (finding) [facility] Start: 10-14-2022 End: 11-13-2022 Exposure to SARS-CoV-2 (event) Not sure [facility] Equipment Procedure Code Equipment Code Equipment Origin al Text Equipment Identifier Dates Cement Bne Hi Vi sc Radiopaque Kyphon Hv-R - [id number] Start: 12-11-2022 Nail Im 170mm 9m m 125d Shrt Cnn Tfn-Adv Lat Rlf Cut Ti Cocr - [id number] Start: 07-10-2023 Blade Im Nl Au 9 0mm 10.35mm Tfn-Adv Hlcl Fem Prox Ti Niobium - [id number] Start: 07-10-2023 Screw Bn 34mm 5m m 4.[address] Lck Strdr Blnt Tip Ti T25 Ft Strl - [id number] Start: 07-10-2023 Goals Date Patient Goal [...] Primary Emergency Contact: Klarissa Moore Relation: Child Self Storage Manager needed? No Secondary Emergency Contact: asaddenilsonjay [place] Relation: Child Past Surgical History: Past Surgical History: Procedure Laterality Date KYPHOSIS SURGERY 12/11/2022 SPINE SURGERY N/A 12/11/2022 T10, T11, L3 KYPHOPLASTY WITH KYPHON performed by Deuce Hollis DO at [facility] OR Immunization History: There is no immunization history on file for this patient. Active Problems: Patient Active Problem List Diagnosis Code Fracture of lumbar spine without cord injury, closed, initial encounter ([facility]) S32.009A Pleural effusion, right J90 Atrial fibrillation with rapid ventricular response ([facility]) I48.91 Anasarca R60.1 Isolation/Infection: Isolation No [...] Assisted Dressing Assisted Toileting Assisted Feeding Independent Support Services Specialist Independent Med Delivery whole Wound Care Documentation [...] 11 Discharging to Facility/ Agency Name: Facility: [facility] Address: [address] [place] [address] Rn Patient Services/Sheet Combining Operator signature: PHYSICIAN SECTION Prognosis: Fair Condition at Discharge: Stable Rehab Potential (if transferring to Rehab): Fair Recommended Labs or Other Treatments After Discharge: PT/OT; follow-up with orthopedic surgery and pulmonology as scheduled. Physician Certification: I certify the above information and transfer of Rebekah Moore is necessary for the continuing treatment of the diagnosis listed and that she requires Snf Facility for greater 30 days. Update Admission H&P: No change in H&P PHYSICIAN SIGNATURE: documented in this encounter [facility] Phone: 12-14-2022 Hospital course Narrative Images from the original note were not included. [facility] Office: [phone] Aditya Zapata DO, Teo Espitia DO, Haroon [...] Gillespie DO, Augustus Pak MD, No Walton, STRING STUDIES DIRECTOR, Kendra Ramirez, STRING STUDIES DIRECTOR, Aviva Barnett, STRING STUDIES DIRECTOR, Hamzah Hartman, STRING STUDIES DIRECTOR, Yudith Shell, KIRTI, Karissa Nguyen, STRING STUDIES DIRECTOR, Julissa Landis, STRING STUDIES DIRECTOR, Genet Vega, STRING STUDIES DIRECTOR, Keri Dietz, STRING STUDIES DIRECTOR, Shirley Helton, STRING STUDIES DIRECTOR, Deuce Guthrie PA-C, Anabelle Mccoy, SITE DIRECTOR, Aparna Bryant, STRING STUDIES DIRECTOR, Rebekah Duran, STRING STUDIES DIRECTOR [facility] IN-PATIENT SERVICE [facility] Discharge Summary Patient ID: Rebekah Moore : 1935 ACCOUNT: [id number] Patient's PCP: Hawa Garzon Admit Date: 12/08/2022 [...] RDW, PLT, MPV, SEDRATE, CRP, INR, DDIMER, HV5DMWNO, LABABSO in the last 72 hours. Invalid input(s): PT Chemistry:No results for input(s): NA, K, CL, CO2, GLUCOSE, BUN, CREATININE, MG, ANIONGAP, LABGLOM, GFRAA, CALCIUM, CAION, PHOS, PSA, PROBNP, TROPHS, CKTOTAL, CKMB, CKMBINDEX, MYOGLOBIN, DIGOXIN, LACTACIDWB in the last 72 hours.No results for input(s): PROT, LABALBU, LABA1C, M3MSYTR, W8OQEWL, FT4, TSH, AST, ALT, LDH, GGT, ALKPHOS, LABGGT, BILITOT, BILIDIR, AMMONIA, AMYLASE, LIPASE, LACTATE, CHOL, HDL, LDLCHOLESTEROL, CHOLHDLRATIO, TRIG, VLDL, JSG75AH, PHENYTOIN, PHENYF, URICACID, POCGLU in the last 72 hours. ABG:No results found for: POCPH, PHART, PH, POCPCO2, PTG4GQP, PCO2, POCPO2, PO2ART, PO2, POCHCO3, RLL0TKI, HCO3, NBEA, PBEA, BEART, BE, THGBART, THB, IXE5DTN, MZWR2ILU, Z3RAOSRH, O2SAT, FIO2 No results found for: SPECIAL [...] of discharge. Discharge plan: Disposition: To a non-[facility] facility Physician Follow Up: [place] [address] [address] Schedule an appointment as soon as possible for a visit in 1 week(s) Hospital follow-up; right-sided pleural effusion Deuce Hollis, [address] [place] [address] Schedule an appointment as soon as [...] Your Medications These medications were sent to [facility] [address] [place] [id number] [place] [address] - [phone] [id number] [facility] [address] midodrine 10 MG tablet Time spent on discharge is 20 mins in patient examination, evaluation, counseling as well as medication reconciliation, prescriptions for required medications, discharge plan and follow up. Electronically signed by Thomas Chang MD 12/14/2022 9:[address] Hawa Garzon for the opportunity to be involved in this patient's care. documented in this encounter [facility] Phone: 12-13-2022 Note PROCEDURE: ULTRASOUNDGUIDED RIGHT THORACENTESIS [...] chest with one percent lidocaine. A 5 Welsh Yueh needle was advanced into the pleural [...] Nilo Rawls MD 12/13/22 Final result [facility] 12-13-2022 History of Present illness Narrative [...] Date 12/13/22 0000 - 12/13/22 2359 Shift 6551-2568 7927-1211 1251-5644 24 Hour Total INTAKE P.O.(mL/kg/hr) 50(0.1) 50 I.V.(mL/kg) 10(0.2) 10(0.2) Shift Total(mL/kg) 50(0.9) 10(0.2) 60(1.1) OUTPUT Urine(mL/kg/hr) 320(0.8) 1150 1470 Shift Total(mL/kg) 320(6) 1150(21.7) 1470(27.8) Weight (kg) 52.9 52.9 52.9 52.9 LABORATORY RESULTS: BLOOD GASES: No results for input(s): POCPH, POCPCO2, POCPO2, POCHCO3, ZRBA4EHH in the last 72 hours. COMPLETE BLOOD [...] the original note were not included. [facility] Office: [phone] Aditya Zapata DO, Teo Espitia DO, Haroon [...] Ramirez CNP, Aviva Barnett CNP, Hamzah Hartman, STRING STUDIES DIRECTOR, Yudith Shell, KIRTI, Karissa Nguyen, STRING STUDIES DIRECTOR, Julissa Landis CNP, Genet Vega CNP, Keri Dietz CNP, Shirley Helton CNP, Deuce Guthrie PA-C, Anabelle Mccoy, SITE DIRECTOR, Aparna Bryant, STRING STUDIES DIRECTOR, Rebekah Duran, STRING STUDIES DIRECTOR [facility] IN-PATIENT SERVICE [facility] Progress Note 12/13/2022 10:19 AM Name: Rebekah Moore Acct: [id number] Room: [address] [place] [address] Day: 4 Admit Date: 12/08/2022 8:59 PM [...] RDW, PLT, MPV, SEDRATE, CRP, INR, DDIMER, PX5HKTWB, LABABSO in the last 72 hours. Invalid input(s): PT Chemistry: No results for input(s): NA, K, CL, CO2, GLUCOSE, BUN, CREATININE, MG, ANIONGAP, LABGLOM, GFRAA, CALCIUM, CAION, PHOS, PSA, PROBNP, TROPHS, CKTOTAL, CKMB, CKMBINDEX, MYOGLOBIN, DIGOXIN, LACTACIDWB in the last 72 hours. No results for input(s): PROT, LABALBU, LABA1C, P5TXCBE, J9LZCHX, FT4, TSH, AST, ALT, LDH, GGT, ALKPHOS, LABGGT, BILITOT, BILIDIR, AMMONIA, AMYLASE, LIPASE, LACTATE, CHOL, HDL, LDLCHOLESTEROL, CHOLHDLRATIO, TRIG, VLDL, RMY90MI, PHENYTOIN, PHENYF, URICACID, POCGLU in the last 72 hours. ABG:No results found for: POCPH, PHART, PH, POCPCO2, YFT9YCO, PCO2, POCPO2, PO2ART, PO2, POCHCO3, ZJY9HYE, HCO3, NBEA, PBEA, BEART, BE, THGBART, THB, OQO0IUA, DINV1SNM, P0NHKLVB, O2SAT, FIO2 No results found for: SPECIAL [...] spine without cord injury, closed, initial encounter ([facility]) 12/09/2022 Yes Pleural effusion, right 12/09/2022 Yes Atrial fibrillation with rapid ventricular response ([facility]) 12/09/2022 Yes Anasarca 12/09/2022 Yes Plan: [...] 875 [Urine:875] Date 12/12/22 - 12/12/222358 Shift 6079-8812 2718-0544 6898-6917 24 Hour Total INTAKE P.O.(mL/kg/hr) 150(0.3) 150 Shift Total(mL/kg) 150(2.8) 150(2.8) OUTPUT Urine(mL/kg/hr) 525(1.2) 525 Shift Total(mL/kg) 525(9.7) 525(9.7) Weight (kg) 53.9 53.9 53.9 53.9 LABORATORY RESULTS: BLOOD GASES: No results for input(s): POCPH, POCPCO2, POCPO2, POCHCO3, SNPY4SOE in the last 72 hours. COMPLETE BLOOD [...] the original note were not included. [facility] Office: [phone] Aditya Zapata DO, Teo Espitia DO, Haroon [...] [place], [place], Aparna Bryant CNP, Rebekah Duran, STRING STUDIES DIRECTOR [facility] IN-PATIENT SERVICE [facility] Progress Note 12/12/2022 1:25 PM Name: Rebekah Moore Acct: [id number] Room: [address] [place] [address] Day: 3 Admit Date: 12/08/2022 8:59 PM [...] No results for input(s): PROT, LABALBU, LABA1C, C8TNMEX, U0WUCTE, FT4, TSH, AST, ALT, LDH, GGT, ALKPHOS, LABGGT, BILITOT, BILIDIR, AMMONIA, AMYLASE, LIPASE, LACTATE, CHOL, HDL, LDLCHOLESTEROL, CHOLHDLRATIO, TRIG, VLDL, XYW60JV, PHENYTOIN, PHENYF, URICACID, POCGLU in the last 72 hours. ABG:No results found for: POCPH, PHART, PH, POCPCO2, AQH6SEN, PCO2, POCPO2, PO2ART, PO2, POCHCO3, GTF2TVQ, HCO3, NBEA, PBEA, BEART, BE, THGBART, THB, QQH4LSB, WQOX8KDZ, M9RTWHUD, O2SAT, FIO2 No results found for: SPECIAL [...] spine without cord injury, closed, initial encounter ([facility]) 12/09/2022 Yes Pleural effusion, right 12/09/2022 Yes Atrial fibrillation with rapid ventricular response ([facility]) 12/09/2022 Yes Anasarca 12/09/2022 Yes Plan: [...] 12/12/2022 1:25 PM Physical Therapy Facility/Department: [facility] ICU Physical Therapy Initial Assessment Name: Rebekah [...] CAD (coronary artery disease), Chronic atrial fibrillation ([facility]), Chronic CHF (congestive heart failure) ([facility]), Compression fracture of body of thoracic vertebra ([facility]), Moderate malnutrition ([facility]), Osteoporosis, and PAD (peripheral artery disease) (HCC). [...] reports wall/furniture walking) Transfer Assistance: Independent Active Nuclear Technician: Yes Patient's Nuclear Technician Info: Daughter Mode of Transportation: Car Occupation: [...] Minutes Kristina Franks PT Occupational Therapy Facility/Department: [facility] ICU Occupational Therapy Initial [...] CAD (coronary artery disease), Chronic atrial fibrillation ([facility]), Chronic CHF (congestive heart failure) ([facility]), Compression fracture of body of thoracic vertebra (HCC), Moderate malnutrition ([facility]), Osteoporosis, and PAD (peripheral artery disease) ([facility]). Past Surgical History: has a past [...] reports wall/furniture walking) Transfer Assistance: Independent Active Nuclear Technician: Yes Patient's Nuclear Technician Info: Daughter Mode of Transportation: Car Occupation: [...] T-Scale Score : 34.69 (12/12/22956) ADL Inpatient [facility] 0-100% Score: 56.46 (12/12/22956) ADL Inpatient CMS [...] the original note were not included. [facility] Office: [phone] Aditya Zapata DO, Teo Espitia DO, Haroon [...] Helton, CORNELIUS, Deuce Guthrie PA-C, Anabelle Mccoy, SITE DIRECTOR, Aparna Bryant, CORNELIUS, Rebekah Duran, CORNELIUS [facility] IN-PATIENT SERVICE [facility] Progress Note 12/11/2022 1:46 PM Name: Rebekah Moore Acct: [id number] Room: [facility] Day: 2 Admit Date: 12/08/2022 8:59 PM [...] No results for input(s): PROT, LABALBU, LABA1C, P8UEBXY, P1UYDRS, FT4, TSH, AST, ALT, LDH, GGT, ALKPHOS, LABGGT, BILITOT, BILIDIR, AMMONIA, AMYLASE, LIPASE, LACTATE, CHOL, HDL, LDLCHOLESTEROL, CHOLHDLRATIO, TRIG, VLDL, NME99EH, PHENYTOIN, PHENYF, URICACID, POCGLU in the last 72 hours. ABG:No results found for: POCPH, PHART, PH, POCPCO2, GSW4HQU, PCO2, POCPO2, PO2ART, PO2, POCHCO3, QCN5QLD, HCO3, NBEA, PBEA, BEART, BE, THGBART, THB, PVG4IWD, RMIC6ZVH, X7MRFDSN, O2SAT, FIO2 No results found for: SPECIAL [...] spine without cord injury, closed, initial encounter ([facility]) 12/09/2022 Yes Pleural effusion, right 12/09/2022 Yes Atrial fibrillation with rapid ventricular response ([facility]) 12/09/2022 Yes Anasarca 12/09/2022 Yes Plan: [...] at which time she had an acute VT involving the right coronary artery with subsequent [...] unchanged from a previous study completed at [facility] on September 26, 2021. Electrocardiogram shows atrial [...] be obtained and operative site marked -Ancef professor of special education to OR -IM and pulmonology cleared; Echo [...] original note were not included. Occupational Therapy [facility] Occupational Therapy Not Seen Note DATE: [...] due to: Surgery/Procedure: hypoplasty today at noon Safety Sitter spoke with Sury on med surg unit, informed her that pt's surgery has been rescheduled for noon on 12/11/2022. Also informed caller that surgeon wants patient to eat today & NPO at midnight. Caller verbalized an understanding. Safety Sitter spoke with RASHIDA Armijo, for report. Safety Sitter informed that pt has an active order for an echocardiogram d/t pleural effusion & was waiting for it to be performed & would need cardiac clearance. States pt was in MRI when tech came to perform test. Surgery lead, Alania, notified. Dr. Upton notified for clarification of orders for fluoro. Dr. Chang notified that MRI results back. Patient returns back from MRI. Images from the original note were not included. [facility] Office: [phone] Aditya Zapata DO, Teo Espitia DO, Haroon [...] Gillespie DO, Augustus Pak MD, No Walton, STRING STUDIES DIRECTOR, Kendra Ramirez, STRING STUDIES DIRECTOR, Aviva Barnett, STRING STUDIES DIRECTOR, Hamzah Hartman, STRING STUDIES DIRECTOR, Yudith Shell, [facility], Karissa Nguyen, STRING STUDIES DIRECTOR, Julissa Landis, STRING STUDIES DIRECTOR, Genet Vega STRING STUDIES DIRECTOR, Keri Dietz, STRING STUDIES DIRECTOR, Shirley Helton, STRING STUDIES DIRECTOR, Deuce Guthrie PA-C, Anabelle Mccoy, SITE DIRECTOR, Aparna Bryant, STRING STUDIES DIRECTOR, Rebekah Duran, STRING STUDIES DIRECTOR [facility] IN-PATIENT SERVICE [facility] Progress Note 12/10/2022 11:07 AM Name: Rebekah Moore Acct: [id number] Room: [address] [place] [address] Day: 1 Admit Date: 12/08/2022 8:59 PM [...] No results for input(s): PROT, LABALBU, LABA1C, W5QFLTD, X0VOICW, FT4, TSH, AST, ALT, LDH, GGT, ALKPHOS, LABGGT, BILITOT, BILIDIR, AMMONIA, AMYLASE, LIPASE, LACTATE, CHOL, HDL, LDLCHOLESTEROL, CHOLHDLRATIO, TRIG, VLDL, XPH64EL, PHENYTOIN, PHENYF, URICACID, POCGLU in the last 72 hours. ABG:No results found for: POCPH, PHART, PH, POCPCO2, IJT5CLW, PCO2, POCPO2, PO2ART, PO2, POCHCO3, NXZ5PQH, HCO3, NBEA, PBEA, BEART, BE, THGBART, THB, AHM6GGD, CKIH3MGZ, R0MFLHYM, O2SAT, FIO2 No results found for: SPECIAL [...] spine without cord injury, closed, initial encounter ([facility]) 12/09/2022 Yes Pleural effusion, right 12/09/2022 Yes Atrial fibrillation with rapid ventricular response ([facility]) 12/09/2022 Yes Anasarca 12/09/2022 Yes Plan: [...] original note were not included. Occupational Therapy [facility] Occupational Therapy Not Seen Note DATE: 12/10/2022 NAME: Rebekah Moore : 1935 Patient not seen this date for Occupational Therapy due to: Other: Awaiting thoracic/lumbar MRI and orthosx POC following MRI results Next Scheduled Treatment: Will check back PM as able or 12/11/2022 documented in this encounter [facility] [employer] Work Phone: 12-13-2022 Note PROCEDURE: ULTRASOUNDGUIDED RIGHT [...] chest with one percent lidocaine. A 5 Welsh Yueh needle was advanced into the pleural [...] 800 mL clear yellow fluid was removed. [facility] RIS CONSOLIDATED 12-13-2022 Note PROCEDURE: ULTRASOUNDGUIDED RIGHT [...] chest with one percent lidocaine. A 5 Welsh Yueh needle was advanced into the pleural [...] 800 mL clear yellow fluid was removed. [facility] CONSOLIDATED 12-13-2022 History of Present illness Narrative Pt arrives to room with EMS for rt therapeutic thoracentesis JR Pa and CM RT to bedside Site prepped and draped Access obtained on right 800ml of clear dark yellow fluid removed Tolerated well Return to [facility] with transport documented in this encounter [employer] Phone: 12-11-2022 Miscellaneous Notes Contact Type: General Care Coordination Activity Patient was scheduled for f/u with PCP today. This was cancelled, as patient is currently admitted to [facility] for fall and lumbar compression fracture. documented in this encounter [facility] 12-11-2022 Telephone encounter Note Contact Type: General Care Coordination Activity Patient was scheduled for f/u with PCP today. This was cancelled, as patient is currently admitted to [facility] for fall and lumbar compression fracture. [facility] Evaluation note Diagnosis Fracture of lumbar spine without cord injury, closed, initial encounter (HCC)- Primary Lumbar compression fracture, sequela Pleural effusion, right Unspecified pleural effusion Atrial fibrillation with rapid ventricular response (HCC) Atrial fibrillation Anasarca Edema documented in this encounter [employer] Phone: InstructionsNot on filedocumented in this encounter Fidelis Advance Directives No Advanced Directives Records FoundLatest Code Status on File Code Status Date Activated Date Inactivated Comments Full Code 12/09/2022 6:00 AM Latest Code Status on File Code Status Date Activated Date Inactivated Comments Full Code 12/09/2022 6:00 AM 12/14/2022 6:44 PM Documents on File Type Date Recorded Patient Audio Visual Technician Expl anation DNR Physician Order 07/19/2023 10:17 AM Latest Code Status on File Code Status Date Activated Date Inactivated Comments DNR Comfort Care Arrest (DNR-CCA) [place] 07/08/2023 5:51 PM 07/12/2023 5:41 PM Code Status History Code Status Date Activated Date Inactivated Comments DNR Comfort Care Arrest (DNR -CCA) [place] 11/07/2022 7:10 AM 11/08/2022 8:15 PM Full [...] to a Procedural area)1700 (Given - Provider: Anrdia Cm RN) 0905 (Given - Provider: Moustapha [...] - Reason: Other)210 (Given - Provider: Jimmy eDwitt RN) 0857 (Not Given - Provider: Andria [...]
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 DATE CREATED AUTHOR AUTHOR'S ORGANIZ ATION 02/12/2023 [facility] DATE CREATED AUTHOR AUTHOR'S ORGANIZ ATION 11/17/2023 [facility] FOR RECORDS PERTAINING TO PATIENTS WHO [...] BE BASED ON THE PRIMARY CLINICAL RECORDS. [facility] [facility]. provides no warranty or guarantee of the accuracy or completeness of information in this document.
[2023-12-07 11:16] LABS: INR 1.96
== END 2023-12-07 09:34 | disposition home or self-care (01) ==
LOC: LAB 09:33
PROVIDERS: PCP Student in an Organized Health Care Education/Training Program; Visit Provider Student in an Organized Health Care Education/Training Program
DX: Z79.01 Long term (current) use of anticoagulants (principal)
CPT/HCPCS: 36415; 85610

== ENCOUNTER 2023-12-20 14:50 | Outpatient (REF) | payer MEDICARE, SELFPAY ==
[2023-12-20 15:38] LABS: Prothrombin Time 19.8 sec (9.0-11.6)
== END 2023-12-20 14:51 | disposition home or self-care (01) ==
LOC: LAB 14:50
PROVIDERS: PCP Student in an Organized Health Care Education/Training Program; Visit Provider Student in an Organized Health Care Education/Training Program
DX: Z79.01 Long term (current) use of anticoagulants (principal)
CPT/HCPCS: 36415; 85610

== ENCOUNTER 2024-04-18 10:49 | Outpatient (REF) | payer MEDICARE, MEDICAID, SELFPAY ==
--- OUTSIDE RECORDS SUMMARY | 2024-04-18 10:53 | XMS_ITS | CCD ---
Author Organization [facility] Informat ion Partnership [facility] Care Team Providers Care Counter Intelligence Agent Name Role Phone Favio Garzonuscarol Primary Care Provider ZHEN SOLO Referring Unavailable ORTEGA GONZALEZ I Primary Care Unavailable ALAMINIvanna FOLUSO Primary Care Unavailable ALAMINA, FOLUSO Primary Care Unavailable EDIE HALL Attending Unavailable ALAMINA, FOLUSO Primary Care Unavailable HAMZAH LUJAN Attending Unavailable ELOY SULLIVAN Consulting Unavailable THOMAS CHANG Attending Unavailable THOMAS CHANG Admitting Unavailable BISMARKMINIvanna, FOLUSO Primary Care Unavailable CARLOS ALBERTO BEST Consulting Unavailable TYRESE CLEMONS Consulting Unavailable HAMZAH BRISCOE Consulting Unavailable Duran MCLAIN-CORNELIUS Foluscarol Primary Care Provider Medications Current [...] 40 mg, SubCUTAneous, DAILY, First dose on Sat12/09/22 at 0900, Until Discontinued Indication of Use: [...] not crush or chew. polyethylene glycol 3350 [id number] mg powder for oral solution (1 source) [...] frequent line interruptions/ long duration, Starting on 12/09/22 at 0805 For piggyback infusion, administer [...] dose on 12/09/22 at 0900, Until Discontinued For Line [...] needed 10 mL, IntraVENous, PRN, Starting on 12/09/22 at 0805, Until Discontinued, Line Care, [...] Coronary arteriosclerosis; Translations: [Atherosclerotic heart disease of [place] coronary artery without angina pectoris] Onset: 1 [...] Value Interpretation Reference Range Facility Prothrombin Timeon 04-07-202 4 INR Coag (PPP) [Relative time] 1.5 {INR} Normal [facility] Comment on above: Order Comment: CALL doctor [id number] tel. [phone], Fax results to [facility] Patient is at: [address] [place] [address] CALL doctor [id number] tel. [phone], Fax results to [facility] Patient is at: [address] [place] [address] Performed By: #### P T #### [facility] [address] [place] [id number] PT Coag (PPP) [Time] 18.2 s Critically high 12.3-14.9 [facility] Comment on above: Order Comment: CALL doctor [id number] tel. [phone], Fax results to [facility] Patient is at: [address] [place] [address] CALL doctor [id number] tel. [phone], Fax results to [facility] Patient is at: [phone] [place] [address] Performed By: #### P T #### [facility] [address] [place] [address] XR PELVIS (MIN 3 VIEWS)on XR PELVIS [...] Zhen Solo DO 02/12/23 Final result Normal [facility] CT ABDOMEN PELVIS WO CONTRJIM Ton 01-25-2023 CT ABDOMEN PELVIS WO CONTRAST [...] Abdifatah Ac MD 01/24/23 Final result Normal [facility] CT HEAD WO CONTRASTon 2022 CT [...] Abdifatah Ac MD 01/24/23 Final result Normal [facility] CT LUMBAR SPINE WO CONTRASTo n [...] definite acute lumbar spine abnormality. Interpreted by: Tihago Rosenthal MD Signed by: Thiago Rosenthal MD 01/24/23 Final result Normal [facility] BASIC METABOLIC PANELon 06-0 Anion gap [Moles/Vol] 9 mmol/L Normal 7-20 [facility] Comment on above: Performed By: #### L [id number] #### [facility] [address] [place] [address] Calcium [Mass/Vol] 8.5 mg/dL Low 8.6-10.3 [facility] Comment on above: Performed By: #### L [id number] #### [facility] ([facility]) [address] [place] [address] Chloride [Moles/Vol] 106 mmol/L Normal 98-107 [facility] Comment on above: Performed By: #### L [id number] #### [facility] ([facility]) [address] [place] [address] CO2 [Moles/Vol] 28 mmol/L Normal 21-31 [facility] Comment on above: Performed By: #### L [id number] #### [facility] ([facility]) [address] [place] [address] Creatinine [Mass/Vol] 0.64 mg/dL Normal 0.60-1.20 [facility] Comment on above: Performed By: #### L [id number] #### [facility] ([facility]) [address] [place] [address] GLOMERULAR FILTRATION RATE ML/MIN/1.73 SQ M.PREDICTED 86.0 mL/min/1.73m*2 Normal >60.0 [facility] Comment on above: Result Comment: [facility]???s estimated glomerular filtration rate (eGFR) will [...] individuals. Performed By: #### L [id number] #### [facility] ([facility]) [address] [place] [address] Glucose [Mass/Vol] 78 mg/dL Normal 70-100 [facility] Comment on above: Performed By: #### L [id number] #### [facility] ([facility]) [address] [place] [address] Potassium [Moles/Vol] 4.5 mmol/L Normal 3.5-5.1 [facility] Comment on above: Performed By: #### L [id number] #### [facility] ([facility]) [address] [place] [address] Sodium [Moles/Vol] 138 mmol/L Normal 136-145 [facility] Comment on above: Performed By: #### L [id number] #### [facility] ([facility]) [address] [place] [address] Urea nitrogen [Mass/Vol] 17 mg/dL Normal 7-25 [facility] Comment on above: Performed By: #### L [id number] #### [facility] ([facility]) [address] [place] [address] UREA NITROGEN/CREATININE (MASS RATIO) IN SER/PLAS 26.6 Normal [facility] Comment on above: Performed By: #### L [id number] #### [facility] ([facility]) [address] [place] [address] CBCon 01-16-2023 Erythrocyte distribution width (RBC) [Ratio] 21.6 % High 11.5-15.0 [facility] Comment on above: Performed By: #### L [id number] #### [facility] ([facility]) [address] [place] [address] ERYTHROCYTE MEAN CORPUSCULAR HEMOGLOBIN CONCENTRATION (G/DL) BY AUTOMATED 30.9 g/dL Low 32.0-35.0 [facility] Comment on above: Performed By: #### L [id number] #### [facility] ([facility]) [address] [place] [address] Hematocrit (Bld) [Volume fraction] 37.6 % Normal 36.0-48.0 [facility] Comment on above: Performed By: #### L [id number] #### [facility] ([facility]) [address] [place] [address] Hemoglobin (Bld) [Mass/Vol] 11.6 g/dL Low 12.0-15.0 [facility] Comment on above: Performed By: #### L [id number] #### [facility] ([facility]) [address] [place] [address] MCH (RBC) [Entitic mass] 29.5 pg Normal 27.0-33.0 [facility] Comment on above: Performed By: #### L [id number] #### [facility] ([facility]) [address] [place] [address] MCV (RBC) [Entitic vol] 95.7 fL Normal 82.0-98.0 [facility] Comment on above: Performed By: #### L [id number] #### [facility] ([facility]) [address] [place] [address] PLATELETS (10*3/UL) IN BLOOD AUTOMATED COUNT 313 10*3/uL Normal 150-400 [facility] Comment on above: Performed By: #### L [id number] #### [facility] ([facility]) [address] [place] [address] RBC (Bld) [#/Vol] 3.93 10*6/uL Normal 3.80-5.00 [facility] Comment on above: Performed By: #### L [id number] #### [facility] ([facility]) [address] [place] [address] WBC (Bld) [#/Vol] 7.89 10*3/uL Normal 4.00-10.60 [facility] Comment on above: Performed By: #### L [id number] #### [facility] ([facility]) [address] [place] [address] URINALYSISon 01-15-2023 BILIRUBIN, TOTAL PRESENCE IN URINE Negative Normal Negative [facility] Comment on above: Order Comment: Micro scopics not performed on urines with negative chemical reactions unless requested on original order. Performed By: #### L [id number] #### [facility] ([facility]) [address] [place] [address] Clarity (U) Clear Normal Clear [facility] Comment on above: Order Comment: Micro scopics not performed on urines with negative chemical reactions unless requested on original order. Performed By: #### L [id number] #### [facility] ([facility]) [address] [place] [address] Color (U) Yellow Normal Yellow [facility] Comment on above: Order Comment: Micro scopics not performed on urines with negative chemical reactions unless requested on original order. Performed By: #### L [id number] #### [facility] ([facility]) [address] [place] [address] Glucose (U) [Mass/Vol] Negative Normal Negative [facility] Comment on above: Order Comment: Micro scopics not performed on urines with negative chemical reactions unless requested on original order. Performed By: #### L [id number] #### [facility] ([facility]) [address] [place] [address] HEMOGLOBIN PRESENCE IN URINE Negative Normal Negative [facility] Comment on above: Order Comment: Micro scopics not performed on urines with negative chemical reactions unless requested on original order. Performed By: #### L [id number] #### [facility] ([facility]) [address] [place] [address] Ketones Ql (U) Negative Normal Negative [facility] Comment on above: Order Comment: Micro scopics not performed on urines with negative chemical reactions unless requested on original order. Performed By: #### L [id number] #### [facility] ([facility]) [address] [place] [address] LEUKOCYTE ESTERASE PRESENCE IN URINE BY TEST STRIP Negative Normal Negative [facility] Comment on above: Order Comment: Micro scopics not performed on urines with negative chemical reactions unless requested on original order. Performed By: #### L [id number] #### [facility] ([facility]) [address] [place] [address] NITRITE PRESENCE IN URINE Negative Normal Negative [facility] Comment on above: Order Comment: Micro scopics not performed on urines with negative chemical reactions unless requested on original order. Performed By: #### L [id number] #### [facility] ([facility]) [address] [place] [address] pH (U) 7.0 [pH] Normal 5.0-8.0 [facility] Comment on above: Order Comment: Micro scopics not performed on urines with negative chemical reactions unless requested on original order. Performed By: #### L [id number] #### [facility] ([facility]) [address] [place] [address] Protein (U) [Mass/Vol] Negative Normal Negative [facility] Comment on above: Order Comment: Micro scopics not performed on urines with negative chemical reactions unless requested on original order. Performed By: #### L [id number] #### [facility] ([facility]) [address] [facility] [place] [address] Specific gravity (U) [Rel density] 1.013 Low 1.015-1.020 [facility] Comment on above: Order Comment: Micro scopics not performed on urines with negative chemical reactions unless requested on original order. Performed By: #### L [id number] #### [facility] ([facility]) [address] [place] [address] URINE CULTURE, ROUTINEon Ampicillin [Susc] >8 Resistant [facility] Comment on above: Performed By: #### L [id number] #### [facility] ([facility]) [address] [place] [address] DAPTOmycin [Susc] 2 ug/ml Susceptible [facility] Comment on above: Performed By: #### L [id number] #### [facility] ([facility]) [address] [place] [address] Linezolid [Susc] <=1 Susceptible [facility] Comment on above: Performed By: #### L [id number] #### [facility] ([facility]) [address] [place] [address] Vancomycin [Susc] >16 Resistant [facility] Comment on above: Performed By: #### L [id number] #### [facility] ([facility]) [address] [place] [address] B-TYPE NATRIURETIC PEPTIDEon 12-28-2022 Natriuretic peptide B (Bld) [Mass/Vol] 1447 pg/mL High 0-100 [facility] Comment on above: Performed By: #### L [id number] #### [facility] ([facility]) [address] [place] [address] BASIC METABOLIC PANELon - Anion gap [Moles/Vol] 23 mmol/L High 7-20 [facility] Comment on above: Performed By: #### L [id number] #### [facility] ([facility]) [address] [place] [address] Calcium [Mass/Vol] 8.1 mg/dL Low 8.6-10.3 [facility] Comment on above: Performed By: #### L [id number] #### [facility] ([facility]) [address] [place] [address] Chloride [Moles/Vol] 108 mmol/L High 98-107 [facility] Comment on above: Performed By: #### L [id number] #### [facility] ([facility]) [address] [place] [address] CO2 [Moles/Vol] 13 mmol/L Invalid Interpretation Code 21-31 [facility] Comment on above: Performed By: #### L [id number] #### [facility] ([facility]) [address] [place] [address] Creatinine [Mass/Vol] 0.86 mg/dL Normal 0.60-1.20 [facility] Comment on above: Performed By: #### L [id number] #### [facility] ([facility]) [address] [place] [address] GLOMERULAR FILTRATION RATE ML/MIN/1.73 SQ M.PREDICTED 65.8 mL/min/1.73m*2 Normal >60.0 [facility] Comment on above: Result Comment: [facility]???s estimated glomerular filtration rate (eGFR) will [...] individuals. Performed By: #### L [id number] #### [facility] ([facility]) [address] [place] [address] Glucose [Mass/Vol] 41 mg/dL Invalid Interpretation Code 70-100 [facility] Comment on above: Performed By: #### L [id number] #### [facility] ([facility]) [address] [place] [address] Potassium [Moles/Vol] 5.3 mmol/L High 3.5-5.1 [facility] Comment on above: Performed By: #### L [id number] #### [facility] ([facility]) [address] [place] [address] Sodium [Moles/Vol] 139 mmol/L Normal 136-145 [facility] Comment on above: Performed By: #### L [id number] #### [facility] ([facility]) [address] [place] [address] Urea nitrogen [Mass/Vol] 20 mg/dL Normal 7-25 [facility] Comment on above: Performed By: #### L [id number] #### [facility] [address] [place] [address] UREA NITROGEN/CREATININE (MASS RATIO) IN SER/PLAS 23.3 Normal [facility] Comment on above: Performed By: #### L [id number] #### [facility] [address] [place] [address] XR CHEST PORTABLEon 12-27-19 XR CHEST PORTABLE [...] Radha Rizo MD 12/25/22 Final result Normal [facility] B-TYPE NATRIURETIC PEPTIDEon 12-25-2022 Natriuretic peptide B (Bld) [Mass/Vol] 1854 pg/mL High 0-100 [facility] Comment on above: Performed By: #### L [id number] #### [facility] ([facility]) [address] [place] [address] BASIC METABOLIC PANELon 12-10 Anion gap [Moles/Vol] 15 mmol/L Normal 7-20 [facility] Comment on above: Performed By: #### L [id number] #### [facility] ([facility]) [address] [place] [address] Calcium [Mass/Vol] 8.0 mg/dL Low 8.6-10.3 [facility] Comment on above: Performed By: #### L [id number] #### [facility] ([facility]) [address] [place] [address] Chloride [Moles/Vol] 106 mmol/L Normal 98-107 [facility] Comment on above: Performed By: #### L [id number] #### [facility] ([facility]) [address] [place] [address] CO2 [Moles/Vol] 22 mmol/L Normal 21-31 [facility] Comment on above: Performed By: #### L [id number] #### [facility] ([facility]) [address] [place] [address] Creatinine [Mass/Vol] 0.77 mg/dL Normal 0.60-1.20 [facility] Comment on above: Performed By: #### L [id number] #### [facility] ([facility]) [address] [place] [address] GLOMERULAR FILTRATION RATE ML/MIN/1.73 SQ M.PREDICTED 75.1 mL/min/1.73m*2 Normal >60.0 [facility] Comment on above: Result Comment: [facility]???s estimated glomerular filtration rate (eGFR) will [...] individuals. Performed By: #### L [id number] #### [facility] ([facility]) [address] [place] [address] Glucose [Mass/Vol] 48 mg/dL Invalid Interpretation Code 70-100 [facility] Comment on above: Performed By: #### L [id number] #### [facility] ([facility]) [address] [place] [address] Potassium [Moles/Vol] 5.3 mmol/L High 3.5-5.1 [facility] Comment on above: Result Comment: M-CH EMISTRY SPECIMEN MODERATELY HEMOLYZED RESULTS MAY NOT BE ACCURATE Performed By: #### L [id number] #### [facility] ([facility]) [address] [place] [address] Sodium [Moles/Vol] 138 mmol/L Normal 136-145 [facility] Comment on above: Performed By: #### L [id number] #### [facility] ([facility]) [address] [place] [address] Urea nitrogen [Mass/Vol] 14 mg/dL Normal 7-25 [facility] Comment on above: Performed By: #### L [id number] #### [facility] ([facility]) [address] [place] [address] UREA NITROGEN/CREATININE (MASS RATIO) IN SER/PLAS 18.2 Normal [facility] Comment on above: Performed By: #### L [id number] #### [facility] ([facility]) [address] [place] [address] Basic Metabolic Profon 12-25 Anion gap [Moles/Vol] 12 mmol/L Normal 9-17 [facility] Comment on above: Performed By: #### Jonh AGUILERA UAX #### [facility] [id number] [place] [address] Hand Molder: Paddy Juares MD Calcium [Mass/Vol] 8.4 mg/dL Low 8.6-10.4 [facility] Comment on above: Performed By: #### Jonh AGUILERA UAX #### [facility] [id number] [place] [id number] Hand Molder: Paddy Juares MD Chloride [Moles/Vol] 103 mmol/L Normal 98-107 [facility] Comment on above: Performed By: #### U WILLY, UAX #### [facility] [address] [place], [place] [id number] Hand Molder: Paddy Juares MD CO2 [Moles/Vol] 25 mmol/L Normal 20-31 [facility] Comment on above: Performed By: #### U MICAO, UAX #### [place] [address] Hand Molder: Paddy Juares MD Creatinine [Mass/Vol] 0.72 mg/dL Normal 0.50-0.90 [facility] Comment on above: Performed By: #### U MICAO, UAX #### [place] [address] Hand Molder: Paddy Juares MD GFR/1.73 sq M.predicted among non-blacks MDRD (S/P/Bld) [Vol rate/Area] mL/min/{1.73_m2} Normal >60 [facility] Comment on above: Result Comment: These [...] Performed By: #### U MAILEO, UAX #### [place] [address] Hand Molder: Paddy Juares MD Glucose [Mass/Vol] 79 mg/dL Normal 70-99 [facility] Comment on above: Performed By: #### U MICAO, UAX #### [place] [id number] Hand Molder: Paddy Juares MD Potassium [Moles/Vol] 3.7 mmol/L Normal 3.7-5.3 [facility] Comment on above: Performed By: #### U MICAO, UAX #### [address], [place] [id number] Hand Molder: Paddy Juares MD Sodium [Moles/Vol] 140 mmol/L Normal 135-144 [facility] Comment on above: Performed By: #### Jonh AGUILERA, UAX #### [address] [address] Hand Molder: Paddy Juares MD Urea nitrogen [Mass/Vol] 13 mg/dL Normal 8-23 [facility] Comment on above: Performed By: #### Jonh AGUILERA UAX #### [place] [address] Hand Molder: Paddy Juares MD Brain Natri. Peptideon 12-25 Natriuretic peptide B (Bld) [Mass/Vol] 8736 pg/mL High <300 [facility] Comment on above: Result Comment: An age-independent cutoff point of 300 pg/ml has a 98% negative predictive value excluding acute heart failure. Performed By: #### Jonh AGUILERA UAX #### [place] [id number] Hand Molder: Paddy Juares MD CBCon 12-25-2022 Hemoglobin (Bld) [Mass/Vol] 14.0 g/dL Normal 12.0-16.0 [facility] Comment on above: Performed By: #### L [id number] #### [facility] ([facility]) [address] [place] [address] Performed By: #### U WILLY UAX #### [address] [address] Hand Molder: Paddy Juares MD Erythrocyte distribution width (RBC) [Ratio] 21.7 % High 11.5-15.0 [facility] Comment on above: Performed By: #### L [id number] #### [facility] ([facility]) [address] [place] [address] ERYTHROCYTE MEAN CORPUSCULAR HEMOGLOBIN CONCENTRATION (G/DL) BY AUTOMATED 31.1 g/dL Low 32.0-35.0 [facility] Comment on above: Performed By: #### L [id number] #### [facility] ([facility]) [address] [place] [address] Hematocrit (Bld) [Volume fraction] 45.0 % Normal 36.0-48.0 [facility] Comment on above: Performed By: #### L [id number] #### [facility] ([facility]) [address] [place] [address] MCH (RBC) [Entitic mass] 28.9 pg Normal 27.0-33.0 [facility] Comment on above: Performed By: #### L [id number] #### [facility] ([facility]) [address] [place] [address] MCV (RBC) [Entitic vol] 92.8 fL Normal 82.0-98.0 [facility] Comment on above: Performed By: #### L [id number] #### [facility] ([facility]) [address] [place] [address] PLATELETS (10*3/UL) IN BLOOD AUTOMATED COUNT 327 10*3/uL Normal 150-400 [facility] Comment on above: Performed By: #### L [id number] #### [facility] ([facility]) [address] [place] [address] RBC (Bld) [#/Vol] 4.85 10*6/uL Normal 3.80-5.00 [facility] Comment on above: Performed By: #### L [id number] #### [facility] ([facility]) [address] [place] [address] WBC (Bld) [#/Vol] 9.86 10*3/uL Normal 4.00-10.60 [facility] Comment on above: Performed By: #### L [id number] #### [facility] ([facility]) [address] [place] [address] CBC with Diffon 12-25-2022 Abs. Basophil 0.00 k/uL Normal 0.0-0.2 [facility] Comment on above: Performed By: #### Jonh AGUILERA, UAX #### [place] [address] Hand Molder: Paddy Juares MD Abs.Neutrophil (Seg) 9.63 k/uL High 1.8-7.7 [facility] Comment on above: Performed By: #### Jonh AGUILERA UAX #### [place] [address] Hand Molder: Paddy Juares MD Basophils/100 WBC (Bld) 0 % Normal 0-2 [facility] Comment on above: Performed By: #### Jonh AGUILERA UAX #### [place] [address] Hand Molder: Paddy Juares MD Eosinophils (Bld) [#/Vol] 0.00 10*3/uL Normal 0.0-0.4 [facility] Comment on above: Performed By: #### Jonh AGUILERA UAX #### [place] [address] Hand Molder: Paddy Juares MD Eosinophils/100 WBC (Bld) 0 % Low 1-4 [facility] Comment on above: Performed By: #### U WILLY UAX #### [place] [address] Hand Molder: Paddy Juares MD Lymphocytes (Bld) [#/Vol] 0.32 10*3/uL Low 1.0-4.8 [facility] Comment on above: Performed By: #### U MAILEO, UAX #### [place] [address] Hand Molder: Paddy Juares MD Lymphocytes/100 WBC (Bld) 3 % Low 24-44 [facility] Comment on above: Performed By: #### U MAILEO, UAX #### [place] [address] Hand Molder: Paddy Juares MD Monocytes (Bld) [#/Vol] 0.75 10*3/uL Normal 0.1-0.8 [facility] Comment on above: Performed By: #### U MAILEO, UAX #### [place] [address] Hand Molder: Paddy Juares MD Monocytes/100 WBC (Bld) 7 % Normal 1-7 [facility] Comment on above: Performed By: #### U WILLY, UAX #### [place] [address] Hand Molder: Paddy Juares MD Morphology Juan Manuel (Bld) [Interp] ANISOCYTOSIS PRESENT Normal [facility] Comment on above: Performed By: #### U WILLY, UAX #### [place] [address] Hand Molder: Paddy Juares MD Neutrophil (Seg) 90 % High 36-66 [facility] Comment on above: Performed By: #### U MAILEO, UAX #### [place] [address] Hand Molder: Paddy Juares MD Erythrocyte distribution width (RBC) [Ratio] 23.0 % High 12.5-15.4 [facility] Comment on above: Performed By: #### U MAILEO, UAX #### [place] [address] Hand Molder: Paddy Juares MD Hematocrit (Bld) [Volume fraction] 44.7 % Normal 36-46 [facility] Comment on above: Performed By: #### U MAILEO, UAX #### [place] [address] Hand Molder: Paddy Juares MD MCH (RBC) [Entitic mass] 29.1 pg Normal 26-34 [facility] Comment on above: Performed By: #### U WILLY, UAX #### [place] [address] Hand Molder: Paddy Juares MD MCHC (RBC) [Mass/Vol] 31.3 g/dL Normal 31-37 [facility] Comment on above: Performed By: #### U WILLY UAX #### [place] [address] Hand Molder: Paddy Juares MD MCV (RBC) [Entitic vol] 92.9 fL Normal 80-100 [facility] Comment on above: Performed By: #### U WILLY, UAX #### [place] [address] Hand Molder: Paddy Juares MD Platelet mean volume (Bld) [Entitic vol] 10.5 fL Normal 8.0-14.0 [facility] Comment on above: Performed By: #### U MAILEO, UAX #### [place] [id number] Hand Molder: Paddy Juares MD Platelets (Bld) [#/Vol] 289 10*3/uL Normal 140-450 [facility] Comment on above: Performed By: #### U MICAO, UAX #### [address] [address] Hand Molder: Paddy Juares MD RBC (Bld) [#/Vol] 4.81 10*6/uL Normal 4.0-5.2 [facility] Comment on above: Performed By: #### U MICAO, UAX #### [place] [address] Hand Molder: Paddy Juares MD WBC (Bld) [#/Vol] 10.7 10*3/uL Normal 3.5-11.0 [facility] Comment on above: Performed By: #### U MICAO, UAX #### [place] [address] Hand Molder: Paddy Juares MD Specimen Rejectionon 023 Reason for rejection Unable to perform testing: Specimen quantity not sufficient. Normal [facility] Comment on above: Performed By: #### U MICAO, UAX #### [place] [address] Hand Molder: Paddy Juares MD Source of sample .BLOOD Normal [facility] Comment on above: Performed By: #### U MICAO, UAX #### [place] [address] Hand Molder: Paddy Juares MD Test ordered BMP TROPI BNP Normal [facility] Comment on above: Performed By: #### U MICAO, UAX #### [place] [address] Hand Molder: Paddy Juares MD Troponinon 12-25-2022 Troponin, High Sens 51 ng/L High 0-14 [facility] Comment on above: Result Comment: High Sensitivity Troponin values cannot be compared with other Troponin methodologies. Performed By: #### T ROPI #### [address] [address] Hand Molder: Paddy Juares MD Troponin, High Sens 50 ng/L High 0-14 [facility] Comment on above: Result Comment: High Sensitivity Troponin values cannot be compared with other Troponin methodologies. Performed By: #### U MICAO, UAX #### [address] [address] Hand Molder: Paddy Juares MD UA w/Reflex Cultureon 2022 Bilirubin, SemiQt,Ur Negative Normal NEG [facility] Comment on above: Performed By: #### U MICAO, UAX #### [address] [address] Hand Molder: Paddy Juares MD Blood, Urine Negative Normal NEG [facility] Comment on above: Performed By: #### U MICAO, UAX #### [place] [address] Hand Molder: Paddy Juares MD Clarity (U) Clear Normal CLEAR [facility] Comment on above: Performed By: #### U MICAO, UAX #### [place] [address] Hand Molder: Paddy Juares MD Color (U) Yellow Normal YEL [facility] Comment on above: Performed By: #### U MICAO, UAX #### [address] [place] [address] Hand Molder: Paddy Juares MD Glucose Ql (U) Negative Normal NEG [facility] Comment on above: Performed By: #### U MICAO, UAX #### [place] [address] Hand Molder: Paddy Juares MD Ketones Ql (U) Negative Normal NEG [facility] Comment on above: Performed By: #### U MICAO, UAX #### [place] [address] Hand Molder: Paddy Juares MD Leukocyte esterase Test strip Ql (U) Negative Normal NEG [facility] Comment on above: Performed By: #### U MICAO, UAX #### [place] [address] Hand Molder: Paddy Juares MD Nitrite,Ur Positive Abnormal NEG [facility] Comment on above: Performed By: #### U MICAO, UAX #### [place] [address] Hand Molder: Paddy Juares MD PH,Ur 8.0 Normal 5.0-8.0 [facility] Comment on above: Performed By: #### U MICAO, UAX #### [place] [address] Hand Molder: Paddy Juares MD Protein Ql (U) Negative Normal NEG [facility] Comment on above: Performed By: #### U MICAO, UAX #### [place] [address] Hand Molder: Paddy Juares MD Spec. [place],Ur 1.015 Normal 1.005-1.030 [facility] Comment on above: Performed By: #### U MAILEO, UAX #### [facility] [address] [place], [place] [phone] Hand Molder: Paddy Juares MD Urobilinogen,Ur Normal Normal NORM [facility] Comment on above: Performed By: #### U MAILEO, UAX #### [facility] [address] [place], [place] [phone] Hand Molder: Paddy Juares MD URINALYSISon 12-25-2022 BILIRUBIN, TOTAL PRESENCE IN URINE Negative Normal Negative [facility] Comment on above: Order Comment: Micro scopics not performed on urines with negative chemical reactions unless requested on original order. Performed By: #### L [id number] #### [facility] ([facility]) [address] [place] [address] Clarity (U) Clear Normal Clear [facility] Comment on above: Order Comment: Micro scopics not performed on urines with negative chemical reactions unless requested on original order. Performed By: #### L [id number] #### [facility] ([facility]) [address] [place] [address] Color (U) Yellow Normal Yellow [facility] Comment on above: Order Comment: Micro scopics not performed on urines with negative chemical reactions unless requested on original order. Performed By: #### L [id number] #### [facility] [address] [place] [address] Glucose (U) [Mass/Vol] Negative Normal Negative [facility] Comment on above: Order Comment: Micro scopics not performed on urines with negative chemical reactions unless requested on original order. Performed By: #### L [id number] #### [facility] [address] [facility] [place] [address] HEMOGLOBIN PRESENCE IN URINE Negative Normal Negative [facility] Comment on above: Order Comment: Micro scopics not performed on urines with negative chemical reactions unless requested on original order. Performed By: #### L [id number] #### [facility] ([facility]) [address] [place] [address] Ketones Ql (U) Negative Normal Negative [facility] Comment on above: Order Comment: Micro scopics not performed on urines with negative chemical reactions unless requested on original order. Performed By: #### L [id number] #### [facility] ([facility]) [address] [place] [address] LEUKOCYTE ESTERASE PRESENCE IN URINE BY TEST STRIP Negative Normal Negative [facility] Comment on above: Order Comment: Micro scopics not performed on urines with negative chemical reactions unless requested on original order. Performed By: #### L [id number] #### [facility] ([facility]) [address] [place] [address] NITRITE PRESENCE IN URINE Negative Normal Negative [facility] Comment on above: Order Comment: Micro scopics not performed on urines with negative chemical reactions unless requested on original order. Performed By: #### L [id number] #### [facility] ([facility]) [address] [place] [address] pH (U) 8.0 [pH] Normal 5.0-8.0 [facility] Comment on above: Order Comment: Micro scopics not performed on urines with negative chemical reactions unless requested on original order. Performed By: #### L [id number] #### [facility] ([facility]) [address] [place] [address] Protein (U) [Mass/Vol] Negative Normal Negative [facility] Comment on above: Order Comment: Micro scopics not performed on urines with negative chemical reactions unless requested on original order. Performed By: #### L [id number] #### [facility] ([facility]) [address] [facility] [place] [address] Specific gravity (U) [Rel density] 1.009 Low 1.015-1.020 [facility] Comment on above: Order Comment: Micro scopics not performed on urines with negative chemical reactions unless requested on original order. Performed By: #### L [id number] #### [facility] ([facility]) [address] [facility] [facility] [place] [address] URINE CULTURE, ROUTINEon Bacteria identified Cx Nom (U) <10,000 CFU/ML No Significant Growth Normal [facility] Comment on above: Performed By: #### L [id number] #### [facility] ([facility]) [address] [place] [address] Urinalysis,Microon 3 Bacteria MANY Abnormal NONE [facility] Comment on above: Performed By: #### U MAILEO, UAX #### [address] [phone] Hand Molder: Paddy Juares MD Epithelial cells LM Ql (Urine sed) 0 TO 2 Normal 0-5 [facility] Comment on above: Performed By: #### U WILLY UAX #### [place] [phone] Hand Molder: Paddy Juares MD Other Observations Utilizing a urinalysis as the only screening method to exclude a potential Abnormal NREQ [facility] Comment on above: Result Comment: urop athogen can be unreliable in many patient populations. Rapid screening tests are less sensitive than culture and if UTI is a clinical possibility, culture should be considered despite a negative urinalysis. Performed By: #### U WILLY, UAX #### [address] [phone] Hand Molder: Paddy Juares MD Urine RBC's 0 TO 2 Normal 0-2 [facility] Comment on above: Performed By: #### U WILLY, UAX #### [address] [address] Hand Molder: Paddy Juares MD Urine WBC's 0 TO 2 Normal 0-5 [facility] Comment on above: Performed By: #### U WILLY UAX #### [facility] [address] [place] [phone] Hand Molder: Paddy Juares MD BASIC METABOLIC PANELon 05-0 Anion gap [Moles/Vol] 9 mmol/L Normal 7-20 [facility] Comment on above: Performed By: #### L [id number] #### [facility] [address] [place] [address] Calcium [Mass/Vol] 7.5 mg/dL Low 8.6-10.3 [facility] Comment on above: Performed By: #### L [id number] #### [facility] ([facility]) [address] [place] [address] Chloride [Moles/Vol] 101 mmol/L Normal 98-107 [facility] Comment on above: Performed By: #### L [id number] #### [facility] ([facility]) [address] [place] [address] CO2 [Moles/Vol] 36 mmol/L High 21-31 [facility] Comment on above: Performed By: #### L [id number] #### [facility] ([facility]) [address] [place] [address] Creatinine [Mass/Vol] 0.83 mg/dL Normal 0.60-1.20 [facility] Comment on above: Performed By: #### L [id number] #### [facility] [address] [place] [address] GLOMERULAR FILTRATION RATE ML/MIN/1.73 SQ M.PREDICTED 68.6 mL/min/1.73m*2 Normal >60.0 [facility] Comment on above: Result Comment: The [facility]???s estimated glomerular filtration rate (eGFR) will [...] individuals. Performed By: #### L [id number] #### [facility] ([facility]) [address] [place] [address] Glucose [Mass/Vol] 136 mg/dL High 70-100 [facility] Comment on above: Performed By: #### L [id number] #### [facility] ([facility]) [address] [place] [address] Potassium [Moles/Vol] 3.3 mmol/L Low 3.5-5.1 [facility] Comment on above: Performed By: #### L [id number] #### [facility] ([facility]) [address] [place] [address] Sodium [Moles/Vol] 143 mmol/L Normal 136-145 [facility] Comment on above: Performed By: #### L [id number] #### [facility] ([facility]) [address] [place] [address] Urea nitrogen [Mass/Vol] 17 mg/dL Normal 7-25 [facility] Comment on above: Performed By: #### L [id number] #### [facility] ([facility]) [address] [facility] [place] [address] UREA NITROGEN/CREATININE (MASS RATIO) IN SER/PLAS 20.5 Normal [facility] Comment on above: Performed By: #### L [id number] #### [facility] ([facility]) [address] [place] [address] CBCon 12-17-2022 Erythrocyte distribution width (RBC) [Ratio] 20.5 % High 11.5-15.0 [facility] Comment on above: Performed By: #### L [id number] #### [facility] ([facility]) [address] [place] [address] ERYTHROCYTE MEAN CORPUSCULAR HEMOGLOBIN CONCENTRATION (G/DL) BY AUTOMATED 29.4 g/dL Low 32.0-35.0 [facility] Comment on above: Performed By: #### L [id number] #### [facility] ([facility]) [address] [place] [address] Hematocrit (Bld) [Volume fraction] 43.6 % Normal 36.0-48.0 [facility] Comment on above: Performed By: #### L [id number] #### [facility] ([facility]) [address] [place] [address] Hemoglobin (Bld) [Mass/Vol] 12.8 g/dL Normal 12.0-15.0 [facility] Comment on above: Performed By: #### L [id number] #### [facility] [address] [place] [address] MCH (RBC) [Entitic mass] 28.1 pg Normal 27.0-33.0 [facility] Comment on above: Performed By: #### L [id number] #### [facility] ([facility]) [address] [place] [address] MCV (RBC) [Entitic vol] 95.6 fL Normal 82.0-98.0 [facility] Comment on above: Performed By: #### L [id number] #### [facility] ([facility]) [address] [place] [address] PLATELETS (10*3/UL) IN BLOOD AUTOMATED COUNT 210 10*3/uL Normal 150-400 [facility] Comment on above: Performed By: #### L [id number] #### [facility] [address] [place] [address] RBC (Bld) [#/Vol] 4.56 10*6/uL Normal 3.80-5.00 [facility] Comment on above: Performed By: #### L [id number] #### [facility] [address] [place] [address] WBC (Bld) [#/Vol] 6.10 10*3/uL Normal 4.00-10.60 [facility] Comment on above: Performed By: #### L [id number] #### [facility] ([facility]) [address] [place] [address] DIGOXIN LEVELon 12-17-2022 DIGOXIN (NG/ML) IN SER/PLAS 1.3 ng/mL Normal 0.7-2 [facility] Comment on above: Performed By: #### L [id number] #### [facility] ([facility]) [address] [place] [address] EKG Rhythm Stripon 3 [facility] Lactate Dehydrogenaseon LDH [Catalytic activity/Vol] 418 U/L High 135-214 [facility] Comment on above: Performed By: #### L D #### [facility] [address] [place] [address] Hand Molder: Rogelio Franks MD #### TROPI, BMP, PT, TP #### [facility] [address] [place], [place] [phone] Hand Molder: Paddy Juares MD Cholesterol in LDL [Mass/Vol] 418 U/L High 135 - 214 U/L [facility] Interpretation and review of laboratory results Abnormal [facility] EKG Rhythm Stripon 3 [facility] No Panel Informationon 12-13 Successful ultrasoun d guided thoracentesis. [facility] Nilo Muro MD - 12/13/2022 PROCEDURE: [...] chest with one percent lidocaine. A 5 Turkish Yueh needle was advanced into the pleural [...] was removed. IMPRESSION: Successful ultrasound guided thoracentesis. [facility] Work Phone: Radiology Study observation (narrative) [facility] Phone: No Panel InformationOrdered By: Nilo Rawls on 12-13-2022 [facility] Work Phone: Protein, Totalon 12-13-2022 Protein [Mass/Vol] 5.7 g/dL Low 6.4-8.3 [facility] Comment on above: Performed By: #### L D #### [employer] [address] [place] [address] Hand Molder: Rogelio Franks MD #### ABDIRASHID, BMP, PT, TP #### [facility] [employer] [address] [address] Hand Molder: Paddy Juares MD Interpretation and review of laboratory results Abnormal [facility] Protein [Mass/Vol] 5.7 g/dL Low 6.4 - 8.3 g/dL [facility] Lactate, Sepsison 12-12-2022 Lactic Acid, Sepsis 2.1 mmol/L High 0.5-1.9 [facility] Comment on above: Performed By: #### U MICAO, UAX #### [address] [address] Hand Molder: Paddy Juares MD Interpretation and review of laboratory results Abnormal [facility] Lactic Acid, Sepsis 2.1 mmol/L High 0.5 - 1. 9 mmol/L [facility] Lactic Acid, Sepsis 2.9 mmol/L High 0.5-1.9 [facility] Comment on above: Performed By: #### U MICAO, UAX #### [address] [address] Hand Molder: Paddy Juares MD Interpretation and review of laboratory results Abnormal [facility] Lactic Acid, Sepsis 2.9 mmol/L High 0.5 - 1. 9 mmol/L [facility] Microscopic Urinalysison Bacteria, UA MANY Abnormal None [facility] Epithelial Cells UA TOO NUMEROUS TO COUNT [facility] Interpretation and review of laboratory results Abnormal [facility] Other Observations UA Utilizing a urinalysis as the only screening method to exclude a potential uropathogen can be unreliable in many patient populations. Rapid screening tests are less sensitive than culture and if UTI is a clinical possibility, culture should be considered despite a negative urinalysis. Abnormal NOT REQ. [facility] RBC clumps Auto (Urine sed) [#/Area] 0 TO 2 [facility] WBC, UA 0 TO 2 [facility] UA w/Reflex Cultureon 2022 Bilirubin, SemiQt,Ur Negative Normal NEG [facility] Comment on above: Performed By: #### U AX, UMICAO #### [address] [address] Hand Molder: Paddy Juares MD Blood, Urine Negative Normal NEG [facility] Comment on above: Performed By: #### U AX, UMICAO #### [place] [address] Hand Molder: Paddy Juares MD Clarity (U) Cloudy Abnormal CLEAR [facility] Comment on above: Performed By: #### U AX, UMICAO #### [place] [address] Hand Molder: Paddy Juares MD Color (U) Yellow Normal YEL [facility] Comment on above: Performed By: #### U AX, UMICAO #### [place] [address] Hand Molder: Paddy Juares MD Glucose Ql (U) Negative Normal NEG [facility] Comment on above: Performed By: #### U AX, UMICAO #### [place] [address] Hand Molder: Paddy Juares MD Ketones Ql (U) Negative Normal NEG [facility] Comment on above: Performed By: #### U AX, UMICAO #### [place] [address] Hand Molder: Paddy Juares MD Leukocyte esterase Test strip Ql (U) Negative Normal NEG [facility] Comment on above: Performed By: #### U AX, UMICAO #### [address] [id number] Hand Molder: Paddy Juares MD Nitrite,Ur Negative Normal NEG [facility] Comment on above: Performed By: #### U AX, UMICAO #### [place] [address] Hand Molder: Paddy Juares MD PH,Ur 7.0 Normal 5.0-8.0 [facility] Comment on above: Performed By: #### U AX, UMICAO #### [place] [address] Hand Molder: Paddy Juares MD Protein Ql (U) Negative Normal NEG [facility] Comment on above: Performed By: #### U AX, UMICAO #### [place] [address] Hand Molder: Paddy Juares MD Spec. [place],Ur 1.015 Normal 1.005-1.030 [facility] Comment on above: Performed By: #### U AX, UMICAO #### [place] [address] Hand Molder: Paddy Juares MD Urobilinogen,Ur Normal Normal NORM [facility] Comment on above: Performed By: #### U AX, UMICAO #### [place] [address] Hand Molder: Paddy Juares MD Urinalysis with Reflex to Cu ltureon 12-12-2022 Bilirubin Urine Negative NEGATIVE [facility] [employer]Sec[employer] Color, UA Yellow Yellow [facility] Glucose Auto test strip (U) [Mass/Vol] Negative NEGATIVE [facility] Interpretation and review of laboratory results Abnormal [facility] Ketones (U) [Mass/Vol] Negative NEGATIVE [facility] Leukocyte esterase Auto test strip Ql (U) Negative NEGATIVE [facility] Nitrite Auto test strip Ql (U) Negative NEGATIVE [facility] Protein (U) [Mass/Vol] 7.0 mg/dL 5.0 - 8.0 [facility] Protein (U) [Mass/Vol] Negative NEGATIVE [facility] Specific [place], UA 1.015 1.005 - 1.030 [facility] Turbidity UA Cloudy Abnormal Clear [facility] Urine Hgb Negative NEGATIVE [facility] Urobilinogen, Urine Normal Normal [facility] Urinalysis,Microon 3 Bacteria MANY Abnormal NONE [facility] Comment on above: Performed By: #### U AX, UMICAO #### [address] [address] Hand Molder: Paddy Juares MD Epithelial cells LM Ql (Urine sed) TOO NUMEROUS TO COUNT Normal [address] [place] [address] Comment on above: Performed By: #### U AX UMICAO #### [place] [address] Hand Molder: Paddy Juares MD Other Observations Utilizing a urinalysis as the only screening method to exclude a potential [facility] Comment on above: Result Comment: urop athogen can be unreliable in many patient populations. Rapid screening tests are less sensitive than culture and if UTI is a clinical possibility, culture should be considered despite a negative urinalysis. Performed By: #### U AX, UMICAO #### [place] [id number] Hand Molder: Paddy Juares MD Urine RBC's 0 TO 2 Normal 0-2 [facility] Comment on above: Performed By: #### U AX, UMICAO #### [address] [address] Hand Molder: Paddy Juares MD Urine WBC's 0 TO 2 Normal 0-5 [facility] Comment on above: Performed By: #### U AX, FRANKY #### [facility] [address] [place] [address] Hand Molder: Paddy Juares MD XR CHEST PORTABLEon 12-13-19 [...] Tim Sánchez MD 12/12/22 Final result Normal [facility] Unchanged chest demonstrating cardiomegaly and right [...] chest demonstrating cardiomegaly and right pleural effusion [employer] Phone: Radiology Study observation (narrative) [employer] Phone: XR CHEST PORTABLEOrdered By: Tim Sánchez on 12-12-2022 [employer] Work Phone: ECHO Complete 2D W Doppler W ColorOrdered By: Tyrese Clemons on 12-11-2022 Left ventricular Ejection fraction 33 [employer] Phone: LVEF MODALITY ECHO [facility] DEM[facility]IT Phone: [facility] Phone: ECHO Complete 2D W Doppler W Coloron 12-11-2022 [facility] Transthoracic Echocardiography Report (TTE) Patient Name MINARCIN Date of Study 12/10/2022 REBEKAH Date of 1935 Gender Female Age 87 year(s) Race Room Number PB324 Height: 64 inch, 162.56 cm Corporate ID [id number] Weight: 116 pounds, 52.6 kg # Patient Acct [id number] BSA: 1.55 m^2 BMI: 19.91 kg/m^2 # MR # [id number] Government Affairs Director Samy Man, [facility] Interpreting Physician Tyrese Clemons Fellow Referring Nurse Practitioner Interpreting Referring Physician Stephen Gamboa Fellow Type of Study TTE procedure:2D Echocardiogram, M-Mode, Doppler, Color Doppler. Procedure Date Date: 12/10/2022 Start: 03:57 PM Study Location: [facility] Technical Quality: Adequate visualization Indications:Congestiv e [...] Clemons, / Result, Unknown Provider - 12/11/2022 [facility] Transthoracic Echocardiography Report (TTE) Patient Name MINARCIN Date of Study 12/10/2022 REBEKAH Date of 1935 Gender Female Age 87 year(s) Race Room Number PB324 Height: 64 inch, 162.56 cm Corporate ID [id number] Weight: 116 pounds, 52.6 kg # Patient Acct [id number] BSA: 1.55 m^2 BMI: 19.91 kg/m^2 # MR # [id number] Government Affairs Director Samy Man [facility] Interpreting Physician Tyrese Clemons Fellow Referring Nurse Practitioner Interpreting Referring Physician Stephen Cardona Type of Study TTE procedure:2D Echocardiogram, M-Mode, Doppler, Color Doppler. Procedure Date Date: 12/10/2022 Start: 03:57 PM Study Location: [facility] Technical Quality: Adequate visualization Indications:Congestiv e [...] of 8 mmHg. Signature - - - Electronically signed by [facility]andre [facility] Madisonvilleshana physician) on 12/11/2022 10:30 AM - FINDINGS Left Atrium Left atrium is [...] Gradient: 1.96 mmHg Estimated PASP: 35.46 mmHg [employer] Phone: EKG 12 Leadon 12-11-2022 Atrial Rate 75 BPM AKI [facility]ANDIT Phone: Q-T Interval 418 ms [employer] Phone: QRS Duration 124 ms [employer] Phone: QTc Calculation (Bazett) 466 ms [employer] Phone: R [place] 2 degrees [employer] Phone: T [place] -91 degrees [employer] Phone: Ventricular Rate 75 BPM AKI [employer] Phone: Atrial fibrillation Right bundle branch block T wave abnormality, consider inferolateral ischemia Abnormal ECG When compared with ECG of 08-DEC-2022 21:14, Vent. rate has decreased BY 54 BPM Right bundle branch block is now Present [facility] STV MUSE Result, Unknown Provider - 12/11/2022 Atrial fibrillation Right bundle branch block T wave abnormality, consider inferolateral ischemia Abnormal ECG When compared with ECG of 08-DEC-2022 21:14, Vent. rate has decreased BY 54 BPM Right bundle branch block is now Present [employer] Phone: [employer] Phone: EKG Rhythm Stripon Timecros [facility] [employer] FLUORO FOR SURGICAL PROCEDUR ESon 12-11-2022 FLU[facility] FOR SURGICAL PROCEDURES Radiology exam is complete. No Radiologist dictation. Please follow up with ordering provider. Final result Normal [facility] Radiology exam is complete. No Radiologist dictation. Please follow up with ordering provider. [facility] RIS CONSOLIDATED Basic Metabolic Panelon 05-0 Anion gap [Moles/Vol] 8 mmol/L Low 9 - 17 mmol/L [facility] Calcium [Mass/Vol] 8.4 mg/dL Low 8.6 - 10. 4 mg/dL [facility] Chloride [Moles/Vol] 104 mmol/L 98 - 10 7 mmol/L [facility] CO2 [Moles/Vol] 31 mmol/L 20 - 31 mmol/L [facility] Creatinine [Mass/Vol] 0.99 mg/dL High 0.50 - 0.90 mg/dL [facility] GFR/1.73 sq M.predicted MDRD (S/P/Bld) [Vol rate/Area] 56 mL/min/{1.73_m2} Low - PINF [facility] Comment on above: These results are not [...] 121 mg/dL High 70 - 99 mg/dL [facility] Interpretation and review of laboratory results Abnormal [facility] Potassium [Moles/Vol] 3.8 mmol/L 3.7 - 5.3 mmol/L [facility] Sodium [Moles/Vol] 143 mmol/L 135 - 144 mmol/L [facility] Urea nitrogen [Mass/Vol] 24 mg/dL High 8 - 23 mg/dL [facility] Basic Metabolic Profon 12-10 Anion gap [Moles/Vol] 8 mmol/L Low 9-17 [facility] Comment on above: Performed By: #### L D #### [employer] [address] [place] [address] Hand Molder: Rogelio Franks MD #### TROPI, BMP, PT, TP #### [facility] [address] [place] [address] Hand Molder: Paddy Juares MD Calcium [Mass/Vol] 8.4 mg/dL Low 8.6-10.4 [facility] Comment on above: Performed By: #### L D #### [address] [id number] Hand Molder: Rogelio Franks MD #### TROPI, BMP, PT, TP #### [address] [phone] Hand Molder: Paddy Juares MD Chloride [Moles/Vol] 104 mmol/L Normal 98-107 [facility] Comment on above: Performed By: #### L D #### [address] [id number] Hand Molder: Rogelio Franks MD #### TROPI, BMP, PT, TP #### [address] [address] Hand Molder: Paddy Juares MD CO2 [Moles/Vol] 31 mmol/L Normal 20-31 [facility] Comment on above: Performed By: #### L D #### [address] [id number] Hand Molder: Rogelio Franks MD #### TROPI, BMP, PT, TP #### [address] [address] Hand Molder: Paddy Juares MD Creatinine [Mass/Vol] 0.99 mg/dL High 0.50-0.90 [facility] Comment on above: Performed By: #### L D #### [address] [id number] Hand Molder: Rogelio Franks MD #### TROPI, BMP, PT, TP #### [address] [address] Hand Molder: Paddy Juares MD GFR/1.73 sq M.predicted among non-blacks MDRD (S/P/Bld) [Vol rate/Area] 56 mL/min/{1.73_m2} Low >60 [facility] Comment on above: Result Comment: These [...] secretion. Performed By: #### L D #### [address] [address] Hand Molder: Rogelio Franks MD #### TROPRobyn, BMP, PT, TP #### [address] [address] Hand Molder: Paddy Juares MD Glucose [Mass/Vol] 121 mg/dL High 70-99 [facility] Comment on above: Performed By: #### L D #### [address] [address] Hand Molder: Rogelio Franks MD #### TROPI BMP, PT, TP #### [place] [id number] [place] [address] Hand Molder: Paddy Juares MD Potassium [Moles/Vol] 3.8 mmol/L Normal 3.7-5.3 [facility] Comment on above: Performed By: #### L D #### [address] [address] Hand Molder: Rogelio Franks MD #### TROPI, BMP, PT, TP #### [address] [place] [id number] Hand Molder: Paddy Juares MD Sodium [Moles/Vol] 143 mmol/L Normal 135-144 [facility] Comment on above: Performed By: #### L D #### [address] [facility] Hospital[facility] [address] [place] [address] [id number] Hand Molder: Rogelio Franks MD #### TROPRobyn BMP, PT, TP #### [address] [phone] Hand Molder: Paddy Juares MD Urea nitrogen [Mass/Vol] 24 mg/dL High 8-23 [facility] Comment on above: Performed By: #### L D #### [address] [id number] Hand Molder: Rogelio Franks MD #### TROPI, BMP, PT, TP #### [address] [address] Hand Molder: Paddy Juares MD EKG 12 Leadon 12-10-2022 Atrial Rate 131 BPM [employer] Phone: Q-T Interval 306 ms [employer] Phone: QRS Duration 114 ms [employer] Phone: QTc Calculation (Bazett) 448 ms [employer] Phone: R [place] 21 degrees [employer] Phone: T [place] -66 degrees [employer] Phone: Ventricular Rate 129 BPM [place] [employer] Phone: Atrial fibrillation with rapid ventricular response ST & T wave abnormality, consider anterior ischemia Abnormal ECG No previous ECGs available [facility] STV MUSE Result, Unknown Provider - 12/10/2022 Atrial fibrillation with rapid ventricular response ST & T wave abnormality, consider anterior ischemia Abnormal ECG No previous ECGs available [employer] Work Phone: [facility] [employer] Work Phone: EKG Rhythm Stripon 3 Timecros [facility]ITALAbsolute Commerce MRI LUMBAR SPINE WO CONTRAST on 12-10-2022 [...] Thiago Rosenthal MD 12/10/22 Final result Normal [facility] Mild loss of vertebral body height and superior endplate edema versus inflammation at the L3 level that may represent an acute/subacute compression deformity. Remote compression deformity at L1 and L2. Multilevel degenerative change with foraminal narrowing as described above. [facility] RIS CONSOLIDATED EXAMINATION: MRI OF THE [...] stenosis. There is severe bilateral foraminal narrowing. Thiago Alvarado MD - 12/10/2022 EXAMINATION: MRI OF THE [...] change with foraminal narrowing as described above. [employer] Phone: [employer] Phone: Radiology Study observation (narrative) [employer] Phone: MRI THORACIC SPINE WO CONTRA STon [...] Thiago Rosenthal MD 12/10/22 Final result Normal [facility] Remote compression deformity at T4, T6, T7, T8, T10, T11, L1, and L2. Prominent inferior endplate Schmorl's node at T11 with adjacent edema or inflammation. Multilevel degenerative change without significant canal stenosis or foraminal narrowing. Large right-sided pleural effusion and trace left-sided pleural effusion. [facility] CON[facility] EXAMINATION: MRI OF THE THORACIC [...] no canal stenosis or significant foraminal narrowing. [facility] Thiago Rosenthal MD - 12/10/2022 [...] pleural effusion and trace left-sided pleural effusion. [employer] Phone: Radiology Study observation (narrative) [employer] Phone: MRI THORACIC SPINE WO CONTRA STOrdered By: Thiago Rosenthal on 12-10-2022 [employer] Phone: PTon 12-10-2022 INR Coag (PPP) [Relative time] 1.2 {INR} Normal [facility] Comment on above: Result Comment: Therapeutic Range: Moderate Anticoagulant Intensity: INR = 2.0-3.0 High Anticoagulant Intensity: INR = 2.5-3.5 Performed By: #### L D #### [employer] [address] [place] [id number] Hand Molder: Rogelio Franks MD #### TROPI, BMP, PT, TP #### [address] [address] Hand Molder: Paddy Juares MD PT Coag (PPP) [Time] 12.5 s Normal 9.4-12.6 [facility] Comment on above: Performed By: #### L D #### [address] [address] Hand Molder: Rogelio Franks MD #### TROPI, BMP, PT, TP #### [place] [id number] [place] [address] Hand Molder: Paddy Juares MD Protime-INRon 12-10-2022 INR Coag (PPP) [Relative time] 1.2 {INR} [facility] Comment on above: Therapeutic Range: Moderate Anticoagulant Intensity: INR = 2.0-3.0 High Anticoagulant Intensity: INR = 2.5-3.5 PT Coag (PPP) [Time] 12.5 s [facility] Troponinon 12-10-2022 Troponin, High Sens 35 ng/L High 0-14 [facility] Comment on above: Result Comment: High Sensitivity Troponin values cannot be compared with other Troponin methodologies. Performed By: #### L D #### [address] [address] Hand Molder: Rogelio Franks MD #### TROPI, BMP, PT, TP #### [address] [address] Hand Molder: Paddy Juares MD Interpretation and review of laboratory results Abnormal [facility] Troponin I.cardiac DL <= 0.01 ng/mL [Mass/Vol] 35 ng/L High 0 - 14 ng/L [facility] Comment on above: High Sensitivity Tro ponin values cannot be compared with other Troponin methodologies. [facility] XR CHEST PORTABLEon 12-11-19 XR CHEST PORTABLE [...] Deuce Dubois MD 12/10/22 Final result Normal [facility] Right pleural effusion with associated compressive atelectasis. Bibasilar opacities, also likely atelectatic. Infiltrate a consideration. Cardiomegaly with venous hypertension but no radiographic CHF. [facility] CON[facility] EXAMINATION: ONE XRAY VIEW OF THE [...] convex-left curvature thoracic spine and some DJD. [facility] Deuce Dubois MD - 12/10/2022 EXAMINATION: [...] with venous hypertension but no radiographic CHF. [employer] Phone: Radiology Study observation (narrative) [employer] Phone: XR CHEST PORTABLEOrdered By: Deuce Dubois on 12-10-2022 [employer] Phone: CT LUMBAR SPINE WO CONTRASTo n [...] Tim Bishop MD 12/09/22 Final result Normal [facility] 1. Subacute appearin g fractures involving [...] trace ascites, and at least mild anasarca. [facility] RIS CONSOLIDATED EXAMINATION: CT OF THE LUMBAR [...] trace ascites, and at least mild anasarca. [employer] Phone: [employer] Phone: XR LUMBAR SPINE (2-3 VIEWS)o n [...] Tim Bishop MD 12/08/22 Final result Normal [facility] CT LUMBAR SPINE WO CONTRASTo n 12-08-2022 Radiology Study observation (narrative) AKI [facility] [employer] Work Phone: XR LUMBAR SPINE (2-3 VIEWS)o n 12-08-2022 1. Age-indeterminate compression fractures of the L1 and L2 superior endplates. Compression deformities at T10 and T11 are favored to be chronic. Consider further seen with MRI or CT. 2. Severe bony demineralization partially limits evaluation for fractures. 3. Moderate lumbar spine degenerative changes associated with moderate levoscoliosis. [facility] EXAMINATION: 3 XRAY VIEWS OF THE LUMBAR [...] disc disease. Mild to severe facet arthropathy. [facility] Tim Bishop MD - 12/08/2022 [...] spine degenerative changes associated with moderate levoscoliosis. [employer] Work Phone: Radiology Study observation (narrative) [employer] Work Phone: XR LUMBAR SPINE (2-3 VIEWS)O rdered By: Tim Bishop on 12-08-2022 [employer] Work Phone: Vital Signs Date Time Vital Sign Value Performing Clinician Jerzy nicole 12-14-2022 14:46-0400 Body height 162.6 cm Abdifatah Bridges III, MD Work Phone: [employer] 12-14-2022 08:15-0400 Body temperature 97.3 [degF] Abdifatah Bridges III, MD Work Phone: [employer] 12-14-2022 08:15-0400 Diastolic blood pressure 65 mm[Hg] Abdifatah Bridges III, MD Work Phone: [employer] 12-14-2022 08:15-0400 Heart rate 71 /min Abdifatah Bridges III, MD Work Phone: [employer] 12-14-2022 08:15-0400 Respiratory rate 16 /min Abdifatah Bridges III, MD Work Phone: [employer] 12-14-2022 08:15-0400 SaO2% (BldA) [Mass fraction] 98 % Abdifatah Bridges III, MD Work Phone: [employer] 12-14-2022 08:15-0400 Systolic blood pressure 110 mm[Hg] Abdifatah Bridges III, MD Work Phone: [employer] 12-14-2022 06:00-0400 Body mass index (BMI) [Ratio] 20.06 kg/m2 Abdifatah Bridges III, MD Work Phone: [facility] 12-14-2022 06:00-0400 Body weight 53 kg Abdifatah Bridges III, MD Work Phone: [facility] 12-13-2022 11:54-0400 Diastolic blood pressure 64 mm[Hg] Stv 2 [facility] 12-13-2022 11:54-0400 SaO2% (BldA) [Mass fraction] 100 % Stv 2 [facility] 12-13-2022 11:54-0400 Systolic blood pressure 112 mm[Hg] Stv 2 [facility] Encounters Encounter Date Encounter Type Care Provider Facility Start: 01-30-2023 End: 01-30-2023 ambulatory [facility] Start: 01-24-2023 End: 01-25-2023 Emergency department patient visit [facility] Start: 12-25-2022 End: 12-26-2022 Emergency department patient visit [facility] Start: 12-13-2022 End: 12-16-2022 ambulatory [facility] Start: 12-13-2022 End: 12-15-2022 Subsequent hospital visit by physician Eddy [employer] [address] Special Procedures Comment on above: Arrived Start: 12-11-2022 Telephone encounter Alaina Hurley RN [facility] Start: 12-08-2022 End: 12-14-2022 Evaluation and management of inpatient ELOY SULLIVAN [facility] Start: 12-08-2022 End: 12-14-2022 Evaluation and management of inpatient Abdifatah Bridges MD Work Phone: [facility] Comment on above: Lumbar [...] Start: 12-11-2022 Fluoroscopy during operation Deuce Pozo [employer] DO Work Phone: Start: 12-11-2022 End: 12-11-2022 [...] Td Vaccines (2 - Td or Tdap) [facility] Start: 08-15-2032 DTaP/Tdap/Td vaccine (2 - Td or Tdap) DTaP/Tdap/Td vaccine (2 - Td or Tdap) [facility] Start: 07-12-2024 Adult BMI Screening Adult BMI Screen ing [facility] Start: 07-10-2024 Tobacco Screening Tobacco Screening [facility] Start: 11-14-2023 Depression Screening Depression Scre ening [facility] Start: 04-12-2023 Influenza vaccination Influenza Vacc ine [facility] Start: 03-12-2023 Influenza vaccination Flu vacc ine (Season Ended) [facility] Start: 12-10-2022 Annual Wellness Visi t (AWV) Annual Wellness Visit (AWV) [facility] Start: 2001 Fall Risk Screening Fall Risk Screen ing [facility] Start: 1986 Administration of varicella zoster vaccine Zoster (Shingles) Vaccine (1 of 2) [facility] Start: 1986 Shingles vaccine (1 of 2) [place] gles vaccine (1 of 2) [facility] Start: 1948 Depression Screen Depression Screen [facility] Start: 1942 Pneumococcal 65+ yea rs Vaccine (1 - PCV) Pneumococcal 65+ years Vaccine (1 - PCV) [facility] Start: 1936 COVID-19 Vaccine (#1) COVID-19 Vacci ne (#1) [employer] Start: 1936 Medicare Annual Well ness Visit Medicare Annual Wellness Visit [facility] Start: 1936 Tobacco Counseling Tobacco Counselin g [facility] End: 12-13-2022 Culture, Body Fluid Culture, Body Fluid Microbiology Routine One Time for 1 Occurrences starting 12/13/2022 until 12/13/2022 [employer] Phone: Comment on above: One Time for 1 Occur rences starting 12/13/2022 until 12/13/2022 End: 12-13-2022 Cytology, Non-Archeologist Classical Cytology, Non-Archeologist Classical Lab Routine One Time for 1 Occurrences starting 12/13/2022 until 12/13/2022 [employer] Phone: Comment on above: One Time for 1 Occur rences starting 12/13/2022 until 12/13/2022 End: 12-13-2022 Glucose, Body Fluid Glucose, Body Fluid Lab Routine One Time for 1 Occurrences starting 12/13/2022 until 12/13/2022 [employer] Phone: Comment on above: One Time for 1 Occur rences starting 12/13/2022 until 12/13/2022 End: 12-11-2022 INITIATE PACU OXYGEN THERAPY PROTOCOL Initiate PACU Oxygen Therapy Protocol Respiratory Care Routine Continuous until discontinued starting 12/11/2022 [employer] Phone: Comment on above: Continuous until dis continued starting 12/11/2022 Intermittent pulse oximetry Pulse Oximetry Spot Check Respiratory Care Routine As Needed until discontinued starting 12/09/2022 [employer] Phone: Comment on above: As Needed until disc ontinued starting 12/09/2022 End: 12-13-2022 Lactate Dehydrogenase, Body Fluid Lactate Dehydrogenase, Body Fluid Lab Routine One Time for 1 Occurrences starting 12/13/2022 until 12/13/2022 [employer] Phone: Comment on above: One Time for 1 Occur rences starting 12/13/2022 until 12/13/2022 Nasal Cannula Oxygen Nasal Cannu la Oxygen Respiratory Care Routine Daily until discontinued starting 12/11/2022 [employer] Phone: Comment on above: Daily until disconti nued starting 12/11/2022 Nasal Cannula Oxygen Nasal Cannu la Oxygen Respiratory Care Routine Daily until discontinued starting 12/12/2022 [employer] Phone: Comment on above: Daily until disconti nued starting 12/12/2022 Oxygen therapy [Mini mum Data Set] Initiate Oxygen Therapy Protocol Respiratory Care Routine As Needed until discontinued starting 12/09/2022 [employer] Phone: Comment on above: As Needed until disc ontinued starting 12/09/2022 Oxygen therapy [Mini mum Data Set] Initiate Oxygen Therapy Protocol Respiratory Care Routine As Needed until discontinued starting 12/11/2022 [employer] Phone: Comment on above: As Needed until disc ontinued starting 12/11/2022 End: 12-13-2022 pH, Body Fluid pH, Body Fluid Lab Routine One Time for 1 Occurrences starting 12/13/2022 until 12/13/2022 [employer] Phone: Comment on above: One Time for 1 Occur rences starting 12/13/2022 until 12/13/2022 End: 12-11-2022 , urine POCT , urine POCT Point of Care Testing Routine One Time for 1 Occurrences starting 12/11/2022 until 12/11/2022 [employer] Phone: Comment on above: One Time for 1 Occur rences starting 12/11/2022 until 12/11/2022 End: 12-13-2022 Protein [Mass/volume] in Serum or Plasma Protein, Total Lab Routine One Time for 1 Occurrences starting 12/13/2022 until 12/13/2022 [employer] Phone: Comment on above: One Time for 1 Occur rences starting 12/13/2022 until 12/13/2022 Immunizations Immunization Date Immunization Notes Care Provider Fa kranthi 08-15-2022 tetanus toxoid, redu rakel diphtheria toxoid, and acellular pertussis vaccine, adsorbed Alaina Hurley RN [facility] Payers Date Payer Category Payer Medicare [id number] 2001 Medicare MEDICARE MEDICAR E PART A & B [id number] 2001-Present [phone] [address] [place] [address] [id number] 1935 Unknown [id number] 1935 Unknown [id number] 1935 Unknown [id number] 1935 Unknown [id number] 1935 Unknown [id number] Social History Date Type Detail Facility Start: 11-07-2022 End: 12-09-2022 Tobacco smoking status WYIS Smokes tobacco daily [facility] Phone: History of tobacco use Cigarette Smoker [facility] Phone: Start: 09-21-2020 End: 12-09-2022 Cigarettes smoked current (pack per day) - Reported 1 [facility] Work Phone: Start: 11-07-2022 End: 12-09-2022 Tobacco use and exposure Smokeless tobacco non-user [facility] Phone: Start: 1935 Sex Assigned At Not on file 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 Never [facility] Work Phone: Average Number of Drinks Not on file [facility] Start: 1935 Sex Assigned At Female [facility] Start: 07-08-2023 Gender identity Identifies as female gender (finding) [facility] Start: 07-08-2023 Sexual orientation Heterosexual (finding) [facility] Start: 10-14-2022 End: 11-13-2022 Exposure to SARS-CoV-2 (event) Not sure [facility] Medical Equipment Procedure Code Equipment Code Equipment Origin al Text Equipment Identifier Dates Cement Bne Hi Vi sc Radiopaque Kyphon Hv-R - [id number] Start: 12-11-2022 Nail Im 170mm 9m m 125d Shrt Cnn Tfn-Adv Lat Rlf Cut Ti Cocr - [id number] Start: 07-10-2023 Blade Im Nl Au 9 0mm 10.35mm Tfn-Adv Hlcl Fem Prox Ti Niobium - [id number] Start: 07-10-2023 Screw Bn 34mm 5m m 4.[address] Lck Strdr Blnt Tip Ti T25 Ft Strl - [id number] Start: 07-10-2023 Goals Date Patient Goal [...] Dante Best MD - 12/13/2022 5:03 PM Deborah Chang MD - 12/13/2022 10:19 AM Dante [...] Primary Emergency Contact: Klarissa Moore Relation: Child Desk Lieutenant needed? No Secondary Emergency Contact: asaddenilsonjay Relation: Child Past Surgical History: Past Surgical History: Procedure Laterality Date KYPHOSIS SURGERY 12/11/2022 SPINE SURGERY N/A 12/11/2022 T10, T11, L3 KYPHOPLASTY WITH KYPHON performed by Deuce Hollis DO at [facility] OR Immunization History: There is no immunization history on file for this patient. Active Problems: Patient Active Problem List Diagnosis Code Fracture of lumbar spine without cord injury, closed, initial encounter ([facility]) S32.009A Pleural effusion, right J90 Atrial fibrillation with rapid ventricular response ([facility]) I48.91 Anasarca R60.1 Isolation/Infection: Isolation No Isolation [...] Assisted Dressing Assisted Toileting Assisted Feeding Independent Under Cutter Independent Med Delivery whole Wound Care Documentation [...] 11 Discharging to Facility/ Agency Name: Facility: [facility] Address: [address] [place] [address] 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 Physician Certification: I certify the above information and transfer of Rebekah Moore is necessary for the continuing treatment of the diagnosis listed and that she requires Care Home Facility for greater 30 days. Update Admission H&P: No change in H&P PHYSICIAN SIGNATURE: documented in this encounter [facility] Phone: 12-14-2022 Hospital course Narrative Images from the original note were not included. [facility] Office: [phone] Aditya Zapata DO, Teo Espitia DO, Haroon Killian DO, Italo Sanabria DO, Martínez Julio MD, Grecia Fox MD, Cooper Mitchell MD, Annita Argueta MD, Kapil Jones MD, Darrel Tejada MD, Hamilton Redmond DO, Barney Mcclelland MD, Megan Harper DO, Era Garcia MD, Thomas Chang MD, Tim Zapata DO, Kenya Garduno MD, Brina Lai MD, Sanya Rjoas DO, Alissa Pulido MD, Larissa Moses MD, Nicolasa Yeh MD, Clara Calles MD, Moustapha Gillespie DO, Augustus Pak MD, No Walton, BRAZER RESISTANCE, Kendra Ramirez, BRAZER RESISTANCE, Aviva Barnett, BRAZER RESISTANCE, Hamzah Hartman, BRAZER RESISTANCE, Yudith Shell, KIRTI, Karissa Nguyen, BRAZER RESISTANCE, Julissa Landis, BRAZER RESISTANCE, Genet Vega, BRAZER RESISTANCE, Keri Dietz, BRAZER RESISTANCE, Shirley Helton, BRAZER RESISTANCE, Deuce Guthrie PA-C, Anabelle Mccoy, ACCOUNT EXECUTIVE, Aparna Bryant, BRAZER RESISTANCE, Rebekah Duran, BRAZER RESISTANCE [facility] IN-PATIENT SERVICE [facility] Discharge Summary Patient ID: Rebekah Moore : 1935 ACCOUNT: [id number] Patient's PCP: Hawa Garzon Admit Date: 12/08/2022 [...] RDW, PLT, MPV, SEDRATE, CRP, INR, DDIMER, [id number], LABABSO in the last 72 hours. Invalid input(s): PT Chemistry:No results for input(s): NA, K, CL, CO2, GLUCOSE, BUN, CREATININE, MG, ANIONGAP, LABGLOM, GFRAA, CALCIUM, CAION, PHOS, PSA, PROBNP, TROPHS, CKTOTAL, CKMB, CKMBINDEX, MYOGLOBIN, DIGOXIN, LACTACIDWB in the last 72 hours.No results for input(s): PROT, LABALBU, LABA1C, H0SDILZ, V7MMFIS, FT4, TSH, AST, ALT, LDH, GGT, ALKPHOS, LABGGT, BILITOT, BILIDIR, AMMONIA, AMYLASE, LIPASE, LACTATE, CHOL, HDL, LDLCHOLESTEROL, CHOLHDLRATIO, TRIG, VLDL, WAV16IJ, PHENYTOIN, PHENYF, URICACID, POCGLU in the last 72 hours. ABG:No results found for: POCPH, PHART, PH, POCPCO2, BNJ6QHY, PCO2, POCPO2, PO2ART, PO2, POCHCO3, PPW2EVJ, HCO3, NBEA, PBEA, BEART, BE, THGBART, THB, JBM5XDD, AAMI9ICQ, N7XADGIA, O2SAT, FIO2 No results found for: SPECIAL [...] of discharge. Discharge plan: Disposition: To a non-[facility] facility Physician Follow Up: [place] [id number] [phone] Schedule an appointment as soon as possible for a visit in 1 week(s) Hospital follow-up; right-sided pleural effusion Deuce Pozo Telma, DO [address] [place] [address] Schedule an appointment as soon as [...] Your Medications These medications were sent to [facility] [address] [place] [address] - [phone] - [phone] [facility] [id number] midodrine 10 MG tablet Time spent on discharge is 20 mins in patient examination, evaluation, counseling as well as medication reconciliation, prescriptions for required medications, discharge plan and follow up. Electronically signed by Thomas Chang MD 12/14/2022 9:[address] Hawa Garzon for the opportunity to be involved in this patient's care. documented in this encounter [facility] Phone: 12-13-2022 Note PROCEDURE: ULTRASOUNDGUIDED RIGHT THORACENTESIS [...] chest with one percent lidocaine. A 5 Turkish Yueh needle was advanced into the pleural [...] by: Nilo Rawls MD 12/13/22 Final result [facility] 12-13-2022 History of Present illness Narrative [...] Date 12/13/22 0000 - 12/13/22 2359 Shift 9225-9803 4155-2530 3842-7484 24 Hour Total INTAKE P.O.(mL/kg/hr) 50(0.1) 50 I.V.(mL/kg) 10(0.2) 10(0.2) Shift Total(mL/kg) 50(0.9) 10(0.2) 60(1.1) OUTPUT Urine(mL/kg/hr) 320(0.8) 1150 1470 Shift Total(mL/kg) 320(6) 1150(21.7) 1470(27.8) Weight (kg) 52.9 52.9 52.9 52.9 LABORATORY RESULTS: BLOOD GASES: No results for input(s): POCPH, POCPCO2, POCPO2, POCHCO3, DZFM0XMI in the last 72 hours. COMPLETE BLOOD [...] spine without cord injury, closed, initial encounter ([facility]) Pleural effusion, right Atrial fibrillation with rapid ventricular response ([facility]) Anasarca ASSESSMENT: Right pleural effusion, s/p thoracentesis [...] from the original note were not included. [facility] Office: [phone] Aditya Zapata DO, Teo Espitia DO, Haroon [...] Walton CNP, Kendra Ramirez CNP, Aviva Barnett BRAZER RESISTANCE, Hamzah Hartman, BRAZER RESISTANCE, Yudith Shell, KIRTI, Karissa Nguyen, BRAZER RESISTANCE, Julissa Landis, BRAZER RESISTANCE, Genet Vega BRAZER RESISTANCE, Keri Dietz, BRAZER RESISTANCE, Shirley Helton BRAZER RESISTANCE, Deuce Guthrie PAYuliaC, Anabelle Mccoy, ACCOUNT EXECUTIVE, Aparna Bryant, BRAZER RESISTANCE, Rebekah Durna, BRAZER RESISTANCE [facility] IN-PATIENT SERVICE [facility] Progress Note 12/13/2022 10:19 AM Name: Rebekah Moore Acct: [id number] Room: [address] [place] [address] Day: 4 Admit Date: 12/08/2022 8:59 PM [...] RDW, PLT, MPV, SEDRATE, CRP, INR, DDIMER, PW7FEFQL, LABABSO in the last 72 hours. Invalid input(s): PT Chemistry: No results for input(s): NA, K, CL, CO2, GLUCOSE, BUN, CREATININE, MG, ANIONGAP, LABGLOM, GFRAA, CALCIUM, CAION, PHOS, PSA, PROBNP, TROPHS, CKTOTAL, CKMB, CKMBINDEX, MYOGLOBIN, DIGOXIN, LACTACIDWB in the last 72 hours. No results for input(s): PROT, LABALBU, LABA1C, D8HUJFA, R6AONEW, FT4, TSH, AST, ALT, LDH, GGT, ALKPHOS, LABGGT, BILITOT, BILIDIR, AMMONIA, AMYLASE, LIPASE, LACTATE, CHOL, HDL, LDLCHOLESTEROL, CHOLHDLRATIO, TRIG, VLDL, VPI22GL, PHENYTOIN, PHENYF, URICACID, POCGLU in the last 72 hours. ABG:No results found for: POCPH, PHART, PH, POCPCO2, ZWZ8KEX, PCO2, POCPO2, PO2ART, PO2, POCHCO3, BAV2GUI, HCO3, NBEA, PBEA, BEART, BE, THGBART, THB, DQL1UUW, YJYN0ZNF, Y7TSTIYX, O2SAT, FIO2 No results found for: SPECIAL [...] spine without cord injury, closed, initial encounter ([facility]) 12/09/2022 Yes Pleural effusion, right 12/09/2022 Yes Atrial fibrillation with rapid ventricular response ([facility]) 12/09/2022 Yes Anasarca 12/09/2022 Yes Plan: T11 [...] I.V.:1000] Out: 875 [Urine:875] Date 12/12/22 - 12/12/229 Shift 8994-7588 8589-1975 3135-6516 24 Hour Total INTAKE P.O.(mL/kg/hr) 150(0.3) 150 Shift Total(mL/kg) 150(2.8) 150(2.8) OUTPUT Urine(mL/kg/hr) 525(1.2) 525 Shift Total(mL/kg) 525(9.7) 525(9.7) Weight (kg) 53.9 53.9 53.9 53.9 LABORATORY RESULTS: BLOOD GASES: No results for input(s): POCPH, POCPCO2, POCPO2, POCHCO3, XMCB5IBN in the last 72 hours. COMPLETE BLOOD [...] from the original note were not included. [facility] Office: [phone] Aditya Zapata DO, Teo Espitia DO, Haroon Killian DO, Italo Sanabria DO, Martínez Julio MD, Grecia Fox MD, Cooper Mitchell MD, Annita Argueta MD, Kapil Jones MD, Darrel Tejada MD, Hamilton Redmond DO, Barney Mcclelland MD, Megan Harper DO, Era Garcia MD, Tohmas Chang MD, Tim Zapata DO, Kenya Garduno MD, Brian Lai MD, aSnya Rojas DO, Alissa Pulido MD, Larissa Moses MD, Nicolasa Yeh MD, Clara Calles MD, Moustapha Gillespie DO, Augustus Pak MD, No Walton CNP, Kendra Ramirez CNP, Aviva Barnett CNP, Hamzah Hartman CNP, Yudith Shell DNP, Karissa Nguyen CNP, Julissa Landis CNP, Genet Vega CNP, Keri Dietz CNP, Shirley Helton CNP, Deuce Guthrie PA-C, Anabelle Mccoy, [place], Aparna Bryant CNP, Rebekah Duran, CORNELIUS [facility] IN-PATIENT SERVICE [facility] Progress Note 12/12/2022 1:25 PM Name: Rebekah Moore Acct: [id number] Room: [address] [place] [address] Day: 3 Admit Date: 12/08/2022 8:59 PM [...] No results for input(s): PROT, LABALBU, LABA1C, P0EGNNC, A2JTWKN, FT4, TSH, AST, ALT, LDH, GGT, ALKPHOS, LABGGT, BILITOT, BILIDIR, AMMONIA, AMYLASE, LIPASE, LACTATE, CHOL, HDL, LDLCHOLESTEROL, CHOLHDLRATIO, TRIG, VLDL, NQS59UF, PHENYTOIN, PHENYF, URICACID, POCGLU in the last 72 hours. ABG:No results found for: POCPH, PHART, PH, POCPCO2, NSX9FKB, PCO2, POCPO2, PO2ART, PO2, POCHCO3, WXH3OUP, HCO3, NBEA, PBEA, BEART, BE, THGBART, THB, LJR8YID, KJRC8KGJ, S8QMWROM, O2SAT, FIO2 No results found for: SPECIAL [...] spine without cord injury, closed, initial encounter ([facility]) 12/09/2022 Yes Pleural effusion, right 12/09/2022 Yes Atrial fibrillation with rapid ventricular response ([facility]) 12/09/2022 Yes Anasarca 12/09/2022 Yes Plan: T11 [...] CAD (coronary artery disease), Chronic atrial fibrillation ([facility]), Chronic CHF (congestive heart failure) ([facility]), Compression fracture of body of thoracic vertebra ([facility]), Moderate malnutrition ([facility]), Osteoporosis, and PAD (peripheral artery disease) ([facility]). Past Surgical History: has a past surgical [...] reports wall/furniture walking) Transfer Assistance: Independent Active Vessel Builder: Yes Patient's Vessel Builder Info: Daughter Mode of Transportation: Car Occupation: [...] AM-PAC Inpatient Mobility Raw Score : 16 (12/12/221112) AM-PAC Inpatient T-Scale Score : 40.78 (12/12/22 [...] CAD (coronary artery disease), Chronic atrial fibrillation ([facility]), Chronic CHF (congestive heart failure) ([facility]), Compression fracture of body of thoracic vertebra ([facility]), Moderate malnutrition (HCC), Osteoporosis, and PAD (peripheral artery disease) ([facility]). Past Surgical History: has a past surgical [...] reports wall/furniture walking) Transfer Assistance: Independent Active Vessel Builder: Yes Patient's Vessel Builder Info: Daughter Mode of Transportation: Car Occupation: [...] CMS 0-100% Score: 56.46 (12/12/22956) ADL Inpatient CMS [...] Group Co-treatment Time In 0832 Time Out 09 Minutes 37 Time Coded Treatment Minutes: 10 Kalani Keene OTR/L Images from the original note were not included. [facility] Office: [phone] Aditya Zapata DO, Toe Espitia DO, Haroon Killian DO, Italo Sanabria [...] Nguyen, CORNELIUS, Julissa Landis, CORNELIUS, Genet Vega, BRAZER RESISTANCE, Keri Dietz, BRAZER RESISTANCE, Shirley Helton, BRAZER RESISTANCE, Deuce Guthrie PA-C, Anabelle Mccoy, ACCOUNT EXECUTIVE, Aparna Bryant, CORNELIUS, Rebekah Duran, CORNELIUS [facility] IN-PATIENT SERVICE [facility] Progress Note 12/11/2022 1:46 PM Name: Rebekah Moore Acct: [id number] Room: [facility] Day: 2 Admit Date: 12/08/2022 8:59 [...] No results for input(s): PROT, LABALBU, LABA1C, Z8YAGVE, W1JBLBS, FT4, TSH, AST, ALT, LDH, GGT, ALKPHOS, LABGGT, BILITOT, BILIDIR, AMMONIA, AMYLASE, LIPASE, LACTATE, CHOL, HDL, LDLCHOLESTEROL, CHOLHDLRATIO, TRIG, VLDL, VTC84ZF, PHENYTOIN, PHENYF, URICACID, POCGLU in the last 72 hours. ABG:No results found for: POCPH, PHART, PH, POCPCO2, QXA0JOW, PCO2, POCPO2, PO2ART, PO2, POCHCO3, GIT4LAV, HCO3, NBEA, PBEA, BEART, BE, THGBART, THB, GXT2IQC, YWUE2FPK, L4VOVGJN, O2SAT, FIO2 No results found for: SPECIAL [...] spine without cord injury, closed, initial encounter ([facility]) 12/09/2022 Yes Pleural effusion, right 12/09/2022 Yes Atrial fibrillation with rapid ventricular response ([facility]) 12/09/2022 Yes Anasarca 12/09/2022 Yes Plan: T11 [...] at which time she had an acute HI involving the right coronary artery with subsequent [...] unchanged from a previous study completed at [facility] on September 26, 2021. Electrocardiogram shows [...] be obtained and operative site marked -Ancef lithopone charger to OR -IM and pulmonology cleared; Echo [...] original note were not included. Occupational Therapy [facility] Occupational Therapy Not Seen Note DATE: 12/11/2022 [...] due to: Surgery/Procedure: hypoplasty today at noon Head Of Sales spoke with Sury on med surg unit, informed her that pt's surgery has been rescheduled for noon on 12/11/2022. Also informed caller that surgeon wants patient to eat today & NPO at midnight. Caller verbalized an understanding. Head Of Sales spoke with RASHIDA Armijo, for report. Head Of Sales informed that pt has an active order [...] from the original note were not included. [facility] Office: [phone] Aditya Zapata DO, Teo Espitia DO, Haroon [...] Gillespie DO, Augustus Pak MD, No Walton, BRAZER RESISTANCE, Kendra Ramirez, BRAZER RESISTANCE, Aviva Barnett, BRAZER RESISTANCE, Hamzah Hartman, BRAZER RESISTANCE, Yudith Shell, KIRTI, Karissa Nguyen, BRAZER RESISTANCE, Julissa Landis, BRAZER RESISTANCE, Genet Vega BRAZER RESISTANCE, Keri Dietz, BRAZER RESISTANCE, Shirley Helton, BRAZER RESISTANCE, Deuce Guthrie PA-C, Anabelle Mccoy, ACCOUNT EXECUTIVE, Aparna Bryant, BRAZER RESISTANCE, Rebekah Duran, BRAZER RESISTANCE [facility] IN-PATIENT SERVICE [facility] Progress Note 12/10/2022 11:07 AM Name: Rebekah Moore Acct: [id number] Room: [address] [place] [address] Day: 1 Admit Date: 12/08/2022 8:59 PM [...] No results for input(s): PROT, LABALBU, LABA1C, O5EKUTC, X3KKHZU, FT4, TSH, AST, ALT, LDH, GGT, ALKPHOS, LABGGT, BILITOT, BILIDIR, AMMONIA, AMYLASE, LIPASE, LACTATE, CHOL, HDL, LDLCHOLESTEROL, CHOLHDLRATIO, TRIG, VLDL, MMM71DV, PHENYTOIN, PHENYF, URICACID, POCGLU in the last 72 hours. ABG:No results found for: POCPH, PHART, PH, POCPCO2, FND5XJC, PCO2, POCPO2, PO2ART, PO2, POCHCO3, RXT4MQS, HCO3, NBEA, PBEA, BEART, BE, THGBART, THB, TTE7LLN, WOZN4SSN, Q8XTDZYX, O2SAT, FIO2 No results found for: SPECIAL [...] spine without cord injury, closed, initial encounter ([facility]) 12/09/2022 Yes Pleural effusion, right 12/09/2022 Yes Atrial fibrillation with rapid ventricular response ([facility]) 12/09/2022 Yes Anasarca 12/09/2022 Yes Plan: T11 [...] original note were not included. Occupational Therapy [facility] Occupational Therapy Not Seen Note DATE: 12/10/2022 NAME: Rebekah Moore : 1935 Patient not seen this date for Occupational Therapy due to: Other: Awaiting thoracic/lumbar MRI and orthosx POC following MRI results Next Scheduled Treatment: Will check back PM as able or 12/11/2022 documented in this encounter [facility] [employer] Work Phone: 12-13-2022 Note PROCEDURE: ULTRASOUNDGUIDED RIGHT [...] chest with one percent lidocaine. A 5 Turkish Yueh needle was advanced into the pleural [...] 800 mL clear yellow fluid was removed. [facility] R[facility] CONSOLIDATED 12-13-2022 Note PROCEDURE: ULTRASOUNDGUIDED [...] chest with one percent lidocaine. A 5 Turkish Yueh needle was advanced into the pleural [...] 800 mL clear yellow fluid was removed. [facility] CONSOLIDATED 12-13-2022 History of Present illness Narrative Pt arrives to room with EMS for rt therapeutic thoracentesis JR Pa and CM RT to bedside Site prepped and draped Access obtained on right 800ml of clear dark yellow fluid removed Tolerated well Return to [facility] with transport documented in this encounter [employer] Phone: 12-11-2022 Miscellaneous Notes Contact Type: General Care Coordination Activity Patient was scheduled for f/u with PCP today. This was cancelled, as patient is currently admitted to [facility] for fall and lumbar compression fracture. documented [facility] this encounter [facility]2022 Telephone encounter Note Contact Type: General Care Coordination Activity Patient was scheduled for f/u with PCP today. This was cancelled, as patient is currently admitted to [facility] for fall and lumbar compression fracture. [facility] Evaluation note Diagnosis Fracture of lumbar spine without cord injury, closed, initial encounter (HCC)- Primary Lumbar compression fracture, sequela Pleural effusion, right Unspecified pleural effusion Atrial fibrillation with rapid ventricular response (HCC) Atrial fibrillation Anasarca Edema documented in this encounter [employer] Phone: InstructionsNot on filedocumented in this encounter [facility] Advance Directives No Advanced Directives Records FoundLatest Code Status on File Code Status Date Activated Date Inactivated Comments Full Code 12/09/2022 6:00 AM Latest Code Status on File Code Status Date Activated Date Inactivated Comments Full Code 12/09/2022 6:00 AM 12/14/2022 6:44 PM Documents on File Type Date Recorded 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
Care Teams (unrecognized sec tion and content) Counter Intelligence Agent Relationship Specialty Start Date End Date Hawa Garzon [address] [place] [id number] PCP - General Professional Benefits Sales Consultant 12/11/22 Counter Intelligence Agent Relationship Specialty Start Date End Date Hawa Garzon [address] [place] [address] PCP - General Professional Benefits Sales Consultant 12/11/22 Counter Intelligence Agent Relationship Specialty Start Date End Date Hawa Garzon APRN-BRAZER RESISTANCE [address] [place] [address] PCP - General Family Medicine 05/30/21 INFORMATION SOURCE (unrecogn ized section and content) DATE CREATED AUTHOR 01/22/2023 [facility] DATE CREATED AUTHOR AUTHOR'S ORGANIZ ATION 02/12/2023 [facility] DATE CREATED AUTHOR AUTHOR'S ORGANIZ ATION 11/17/2023 [facility] FOR RECORDS PERTAINING TO PATIENTS WHO ARE [...] BE BASED ON THE PRIMARY CLINICAL RECORDS. [facility], [facility]. provides no warranty or guarantee of the accuracy or [phone] information in [phone] [id number]
[2024-04-18 11:22] LABS: INR 2.12; Prothrombin Time 20.9 sec (9.0-11.6)
== END 2024-04-18 10:50 | disposition home or self-care (01) ==
LOC: LAB 10:49
PROVIDERS: PCP Student in an Organized Health Care Education/Training Program; Visit Provider Student in an Organized Health Care Education/Training Program
DX: Z79.01 Long term (current) use of anticoagulants (principal)
CPT/HCPCS: 36415; 85610

== ENCOUNTER 2024-05-17 09:35 | Outpatient (REF) | payer MEDICARE, MEDICAID, SELFPAY ==
--- OUTSIDE RECORDS SUMMARY | 2017-11-11 05:30 | XMS_ITS | Continuity of Care Document ---
Author Organization [employer] [facility] Address [address] [place] [address] [place] [address] Phone Care Team Providers Care Loan Collector Name Role Phone Dylan Nascimento MD Unavailable Unavailable Allergies, Adverse Reactions, Alerts Substance Reaction Status Criticality No Known Allergies Active No Inform ation Medications Medication Instructions Dosage Effective Dates (start - stop) Status Comments Aspir-81 81 mg tablet,delayed release take 1 tablet by oral route every day - Active Procedures Procedure Date EKG OFFICE/OUTPATIENT VISIT, [facility] Advance Directives Directive Yes / No Effective Date File Name No Information Encounters Encounter Description Practice Location Reason(s) For Visit Diagnoses Date Provider Providers Copied on Encounter OFFICE/OUTPAT IENT VISIT, [facility], [address] [place] [address] B, [place], [place], [id number], [place] tel:[phone] [facility] Est PCP (chief complaint)P re-op Clearance Cataract surgery (chief complaint) Age-related cataract of both eyes, unspecified age-related cataract typePreop examinationHx of heart artery stentTobacco abuse Pily Richardson. [address] [place] [address], [facility] A, [place], [place], [id number], [place]. tel:[phone] Referring Provider: Dylan Rondon, [address] [place] [address] A, [place], [address] . tel:[phone] Family History Family Member Type Diagnosis Age At Onset Father Problem (finding) diabetes melli tus in first degree relative Payers Payer name Insurance type Covered democrat ID Authoriza tion(s) Medicare MB [id number] Social History Type Description Quantity Date Captured Comments Alcohol Use Details No Caffeine Use Details coffee and soda 8 Tobacco Use Status Moderate cigarette smoker (10-19 cigs/day) Smoking Status Heavy tobacco smoker Smoking Tobacco Use Details Cigarette: Age Started: 62, Years Used 20 Cigarette: 0.5 Packs per day, Pack Year: 10 Sex Female Sexual Orientation Straight or heterosexual Vital Signs Date / Time: Height Weight BMI Pulse Rate Blood Pressure Temperature Respiratory Rate Body Surface Area Head Circumference Head Circ. Percentile Wt./Terence. Percentile BMI percentile Pulse Ox Inhaled Ox 9:53 AM 62.00 in 65.771 kg (145.00 lbs) 26.5 2 kg/m eter (2) 94 /min 138/82 mm[Hg] 20 /min Chief Complaint And Reason For Visit From encounter dated '11/11/2017 09:30'. Est PCP (chief complaint). Description: pt is here for initial visit. pt never had PCP in the past.pt is with 4 children.pt had ID in 2012, had stent x 1. pt saw coal pulverizer operator x 1 year, then ptnever f/u with coal pulverizer operator. pt declined to f/u wtih coal pulverizer operator. pt never had colonoscopy or mammogram in the past, declined test. Pre-op Clearance Cataract surgery (chief complaint). Description: Pt is here for preop exam for bilateral cataract surgery date: [facility] Malikanesthesia: local Reason For Referral Reason For Referral No Information Plan Of Treatment Date Type Action Status Goal DEXA Scan. Due on 8 due Goal Colonoscopy. Due on 018 due Goal EKG. Due on due Goal Digital Mammogram Screening. Due on due Goal SCREENINGMAMMOGRAPHYDIGITAL. Due on due Goal LINE ERECTOR APPRENTICE/Breast exam. Due on due Goal Zoster vaccine. Due on due Goal Td vaccine. Due on 18 due Goal Influenza vaccine. Due on Ap due Goal Pneumococcal vaccine. Due on due Goal Glucose. Due on due Goal Cytology report of Cervical and vaginal smear or scraping Cyto stain. Due on due Goal Pap/HPV testing. Due on due Goal URINALYSIS NONAUTO W/O SCOPE . Due on due Goal Depression screening. Due on due Goal ECG. Due on due Goal Echocardiogram. Due on due Goal Fasting glucose. Due on due Goal Lipid panel. Due on 018 due Goal Tobacco cessation counseling completed History Of Present Illness Encounter Date Complaint History Of Prese nt Illness Est PCP pt is here for i nitial visit. pt never had PCP in the past. pt is with 4 children.pt had ID in 2012, had stent x 1. pt saw coal pulverizer operator x 1 year, then pt never f/u with coal pulverizer operator. pt declined to f/u [facility] coal pulverizer operator. pt never had colonoscopy or mammogram in the past, declined test. Pre-op Clearance Cataract surger y Pt is here for preop exam for bilateral cataract surgery date: [facility]28[facility] Malikanesthesia: local Functional Status Date Functional Assessmen t No Information Instructions Date Instruction Additional Infor mation No Information Assessments Type Assessment Date assessment Age-related cataract of both eyes, unspecified age-related cataract type assessment Preop examination assessment Hx of heart artery stent 2017 assessment Tobacco abuse Mental Status Date Cognitive Assessment Orientation - [place] ed to time, place, person, situation. Patient Care Teams Name Effective Dates (start - stop) Status Members No Information
--- OUTSIDE RECORDS SUMMARY | 2017-11-11 05:30 | XMS_ITS | Continuity of Care Document ---
Author Organization [employer] [facility] Address [address] [place] [address] [place] [address] Phone Care Team Providers Care Talent Coordinator Name Role Phone Dylan Nascimento MD Unavailable Unavailable Allergies, Adverse Reactions, Alerts Substance Reaction Status Criticality No Known Allergies Active No Inform ation Medications Medication Instructions Dosage Effective Dates (start - stop) Status Comments Aspir-81 81 mg tablet,delayed release take 1 tablet by oral route every day - Active Procedures Procedure Date EKG OFFICE/OUTPATIENT VISIT, [facility] Advance Directives Directive Yes / No Effective Date File Name No Information Encounters Encounter Description Practice Location Reason(s) For Visit Diagnoses Date Provider Providers Copied on Encounter OFFICE/OUTPAT IENT VISIT, [facility] [facility], [address] [place] [address] B, [place], [place], [id number], [place] tel:[phone] [facility] Est PCP (chief complaint)P re-op Clearance Cataract surgery (chief complaint) Age-related cataract of both eyes, unspecified age-related cataract typePreop examinationHx of heart artery stentTobacco abuse Pily Richardson. [address] [place] [address], [facility] A, [place], [place], [id number], [place]. tel:[phone] Referring Provider: Dylan Rondon, [address] [place] [address] A, [place], [address] . tel:[phone] Family History Family Member Type Diagnosis Age At Onset Father Problem (finding) diabetes melli tus in first degree relative Payers Payer name Insurance type Covered green party ID Authoriza tion(s) Medicare MB [id number] Social History Type Description Quantity Date Captured [...] 2012, had stent x 1. pt saw epic prelude analyst x 1 year, then ptnever f/u with epic prelude analyst. pt declined to f/u wtih epic prelude analyst. pt never had colonoscopy or mammogram in the past, declined test. Pre-op Clearance Cataract surgery (chief complaint). Description: Pt is here for preop exam for bilateral cataract surgery date: [facility] Malikanesthesia: local Reason For Referral Reason For Referral No Information Plan Of Treatment Date Type Action Status Goal DEXA Scan. Due on 8 due Goal Colonoscopy. Due on 018 due Goal EKG. Due on due Goal Digital Mammogram Screening. Due on due Goal SCREENINGMAMMOGRAPHYDIGITAL. Due on due Goal CLOTH PRESSER/Breast exam. Due on due Goal Zoster vaccine. [...] 2012, had stent x 1. pt saw epic prelude analyst x 1 year, then pt never f/u with epic prelude analyst. pt declined to f/u [facility] epic prelude analyst. pt never had colonoscopy or mammogram in the past, declined test. Pre-op Clearance Cataract surger y Pt is here for preop exam for bilateral cataract surgery date: 11[facility]28[facility]17 [facility] Malikanesthesia: local Functional Status Date Functional Assessmen t No Information Instructions Date Instruction Additional Infor mation No Information Assessments Type Assessment Date assessment Age-related cataract of both eyes, unspecified age-related cataract type assessment Preop examination assessment Hx of heart artery stent 2017 assessment Tobacco abuse Mental Status Date Cognitive Assessment Orientation - [place] ed to time, place, person, situation. Patient Care Teams Name Effective Dates (start - stop) Status Members No Information
--- OUTSIDE RECORDS SUMMARY | 2023-08-19 12:37 | XMS_ITS ---
Author Organization [facility] [place] Address [address] [place] [address] Care Team Providers Care Alternative Energy Engineer Name Role Phone Hawa Garzon CNP Primary Care Provider Opal Taylor Unavailable [phone] REASON FOR VISIT Discuss cholecystectomy Encounters Encounter Location Date Provider Diagnosis General Surgery [place] [id number] 08/19/2023 Opal Santizo Plan Of Treatment No Information Progress Notes * Rebekah MOORE RDOB:1934 (88 yo F)Acc No.[id number]:08/19/2023 Patient: Tye Rebekah hill :1935 A ge:88 Y S ex:Female Address:[address] [place] [id number] * true * Date: Generated for Jess goodman/Eduar/eTransmitting on: 0 01/13/2025 04:23 PM EDT
--- OUTSIDE RECORDS SUMMARY | 2024-05-17 09:38 | XMS_ITS | CCD ---
Author Organization [facility] Informat ion Partnership [facility] Care Team Providers Care Cw Operator Name Role Phone Favio Garzonuscarol Primary Care [...] not crush or chew. polyethylene glycol 3350 65853 mg powder for oral solution (1 source) [...] Coronary arteriosclerosis; Translations: [Atherosclerotic heart disease of [place] coronary artery without angina pectoris] Onset: 1 [...] Coag (PPP) [Relative time] 1.5 {INR} Normal [facility] Comment on above: Order Comment: CALL doctor [id number] tel. [phone], Fax results to [facility] Patient is at: [address] [place] [address] CALL doctor [id number] tel. [phone], Fax results to [facility] Patient is at: [address] [place] [address] Performed By: #### P T #### [facility] [address] [place] [id number] PT Coag (PPP) [Time] 18.2 s Critically high 12.3-14.9 [facility] Comment on above: Order Comment: CALL doctor [id number] tel. [phone], Fax results to [facility] Patient is at: [address] [place] [address] CALL doctor [id number] tel. [phone], Fax results to [facility] Patient is at: [id number] [place] [address] Performed By: #### P T #### [facility] [address] [place] [address] XR PELVIS (MIN 3 VIEWS)on XR PELVIS [...] Zhen Solo DO 02/12/23 Final result Normal [facility] CT ABDOMEN PELVIS WO CONTRJIM Ton [...] Abdifatah Ac MD 01/24/23 Final result Normal [facility] CT HEAD WO CONTRASTon 2022 CT [...] chronic microvascular ischemic changes. Interpreted by: Abdifatah cA MD Signed by: Abdifatah Ac MD 01/24/23 Final result Normal [facility] CT LUMBAR SPINE WO CONTRASTo n [...] Thiago Rosenthal MD 01/24/23 Final result Normal [facility] BASIC METABOLIC PANELon 06-0 Anion gap [Moles/Vol] 9 mmol/L Normal 7-20 [facility] Comment on above: Performed By: #### L [id number] #### [facility] ([facility]) [address] [place] [address] Calcium [Mass/Vol] 8.5 mg/dL Low 8.6-10.3 [facility] Comment on above: Performed By: #### L [id number] #### [facility] ([facility]) [address] [place] [address] Chloride [Moles/Vol] 106 mmol/L Normal 98-107 [facility] Comment on above: Performed By: #### L [id number] #### [facility] ([facility]) [address] [place] [address] CO2 [Moles/Vol] 28 mmol/L Normal 21-31 [facility] Comment on above: Performed By: #### L [id number] #### [facility] ([facility]) [address] [place] [address] Creatinine [Mass/Vol] 0.64 mg/dL Normal 0.60-1.20 [facility] Comment on above: Performed By: #### L [id number] #### [facility] ([facility]) [address] [place] [address] GLOMERULAR FILTRATION RATE ML/MIN/1.73 SQ M.PREDICTED 86.0 mL/min/1.73m*2 Normal >60.0 [facility] Comment on above: Result Comment: The [facility]???s estimated glomerular filtration rate (eGFR) will [...] individuals. Performed By: #### L [id number] #### [facility] ([facility]) [address] [place] [address] Glucose [Mass/Vol] 78 mg/dL Normal 70-100 [facility] Comment on above: Performed By: #### L [id number] #### [facility] ([facility]) [address] [place] [address] Potassium [Moles/Vol] 4.5 mmol/L Normal 3.5-5.1 [facility] Comment on above: Performed By: #### L [id number] #### [facility] ([facility]) [address] [place] [address] Sodium [Moles/Vol] 138 mmol/L Normal 136-145 [facility] Comment on above: Performed By: #### L [id number] #### [facility] ([facility]) [address] [place] [address] Urea nitrogen [Mass/Vol] 17 mg/dL Normal 7-25 [facility] Comment on above: Performed By: #### L [id number] #### [facility] ([facility]) [address] [place] [address] UREA NITROGEN/CREATININE (MASS RATIO) IN SER/PLAS 26.6 Normal [facility] Comment on above: Performed By: #### L [id number] #### [facility] ([facility]) [address] [place] [address] CBCon 01-16-2023 Erythrocyte distribution width (RBC) [Ratio] 21.6 % High 11.5-15.0 [facility] Comment on above: Performed By: #### L [id number] #### [facility] ([facility]) [address] [place] [address] ERYTHROCYTE MEAN CORPUSCULAR HEMOGLOBIN CONCENTRATION (G/DL) BY AUTOMATED 30.9 g/dL Low 32.0-35.0 [facility] Comment on above: Performed By: #### L [id number] #### [facility] ([facility]) [address] [place] [address] Hematocrit (Bld) [Volume fraction] 37.6 % Normal 36.0-48.0 [facility] Comment on above: Performed By: #### L [id number] #### [facility] ([facility]) [address] [place] [address] Hemoglobin (Bld) [Mass/Vol] 11.6 g/dL Low 12.0-15.0 [facility] Comment on above: Performed By: #### L [id number] #### [facility] ([facility]) [address] [place] [address] MCH (RBC) [Entitic mass] 29.5 pg Normal 27.0-33.0 [facility] Comment on above: Performed By: #### L [id number] #### [facility] ([facility]) [address] [place] [address] MCV (RBC) [Entitic vol] 95.7 fL Normal 82.0-98.0 [facility] Comment on above: Performed By: #### L [id number] #### [facility] ([facility]) [address] [place] [address] PLATELETS (10*3/UL) IN BLOOD AUTOMATED COUNT 313 10*3/uL Normal 150-400 [facility] Comment on above: Performed By: #### L [id number] #### [facility] ([facility]) [address] [place] [address] RBC (Bld) [#/Vol] 3.93 10*6/uL Normal 3.80-5.00 [facility] Comment on above: Performed By: #### L [id number] #### [facility] ([facility]) [address] [place] [address] WBC (Bld) [#/Vol] 7.89 10*3/uL Normal 4.00-10.60 [facility] Comment on above: Performed By: #### L [id number] #### [facility] ([facility]) [address] [place] [address] URINALYSISon 01-15-2023 BILIRUBIN, TOTAL PRESENCE IN URINE Negative Normal Negative [facility] Comment on above: Order Comment: Micro scopics not performed on urines with negative chemical reactions unless requested on original order. Performed By: #### L [id number] #### [facility] ([facility]) [address] [place] [address] Clarity (U) Clear Normal Clear [facility] Comment on above: Order Comment: Micro scopics not performed on urines with negative chemical reactions unless requested on original order. Performed By: #### L [id number] #### [facility] ([facility]) [address] [place] [address] Color (U) Yellow Normal Yellow [facility] Comment on above: Order Comment: Micro scopics not performed on urines with negative chemical reactions unless requested on original order. Performed By: #### L [id number] #### [facility] ([facility]) [address] [place] [address] Glucose (U) [Mass/Vol] Negative Normal Negative [facility] Comment on above: Order Comment: Micro scopics not performed on urines with negative chemical reactions unless requested on original order. Performed By: #### L [id number] #### [facility] ([facility]) [address] [place] [address] HEMOGLOBIN PRESENCE IN URINE Negative Normal Negative [facility] Comment on above: Order Comment: Micro scopics not performed on urines with negative chemical reactions unless requested on original order. Performed By: #### L [id number] #### [facility] ([facility]) [address] [place] [address] Ketones Ql (U) Negative Normal Negative [facility] Comment on above: Order Comment: Micro scopics not performed on urines with negative chemical reactions unless requested on original order. Performed By: #### L [id number] #### [facility] ([facility]) [address] [place] [address] LEUKOCYTE ESTERASE PRESENCE IN URINE BY TEST STRIP Negative Normal Negative [facility] Comment on above: Order Comment: Micro scopics not performed on urines with negative chemical reactions unless requested on original order. Performed By: #### L [id number] #### [facility] ([facility]) [address] [place] [address] NITRITE PRESENCE IN URINE Negative Normal Negative [facility] Comment on above: Order Comment: Micro scopics not performed on urines with negative chemical reactions unless requested on original order. Performed By: #### L [id number] #### [facility] ([facility]) [address] [place] [address] pH (U) 7.0 [pH] Normal 5.0-8.0 [facility] Comment on above: Order Comment: Micro scopics not performed on urines with negative chemical reactions unless requested on original order. Performed By: #### L [id number] #### [facility] ([facility]) [address] [place] [address] Protein (U) [Mass/Vol] Negative Normal Negative [facility] Comment on above: Order Comment: Micro scopics not performed on urines with negative chemical reactions unless requested on original order. Performed By: #### L [id number] #### [facility] ([facility]) [address] [facility] [place] [place] [address] Specific gravity (U) [Rel density] 1.013 Low 1.015-1.020 [facility] Comment on above: Order Comment: Micro scopics not performed on urines with negative chemical reactions unless requested on original order. Performed By: #### L [id number] #### [facility] ([facility]) [address] [place] [address] URINE CULTURE, ROUTINEon Ampicillin [Susc] >8 Resistant [facility] Comment on above: Performed By: #### L [id number] #### [facility] ([facility]) [address] [place] [address] DAPTOmycin [Susc] 2 ug/ml Susceptible [facility] Comment on above: Performed By: #### L [id number] #### [facility] ([facility]) [address] [place] [address] Linezolid [Susc] <=1 Susceptible [facility] Comment on above: Performed By: #### L [id number] #### [facility] ([facility]) [address] [place] [address] Vancomycin [Susc] >16 Resistant [facility] Comment on above: Performed By: #### L [id number] #### [facility] ([facility]) [address] [place] [address] B-TYPE NATRIURETIC PEPTIDEon 12-28-2022 Natriuretic peptide B (Bld) [Mass/Vol] 1447 pg/mL High 0-100 [facility] Comment on above: Performed By: #### L [id number] #### [facility] ([facility]) [address] [place] [address] BASIC METABOLIC PANELon - Anion gap [Moles/Vol] 23 mmol/L High 7-20 [facility] Comment on above: Performed By: #### L [id number] #### [facility] ([facility]) [address] [place] [address] Calcium [Mass/Vol] 8.1 mg/dL Low 8.6-10.3 [facility] Comment on above: Performed By: #### L [id number] #### [facility] ([facility]) [address] [place] [address] Chloride [Moles/Vol] 108 mmol/L High 98-107 [facility] Comment on above: Performed By: #### L [id number] #### [facility] ([facility]) [address] [place] [address] CO2 [Moles/Vol] 13 mmol/L Invalid Interpretation Code 21-31 [facility] Comment on above: Performed By: #### L [id number] #### [facility] ([facility]) [address] [place] [address] Creatinine [Mass/Vol] 0.86 mg/dL Normal 0.60-1.20 [facility] Comment on above: Performed By: #### L [id number] #### [facility] ([facility]) [address] [place] [address] GLOMERULAR FILTRATION RATE ML/MIN/1.73 SQ M.PREDICTED 65.8 mL/min/1.73m*2 Normal >60.0 [facility] Comment on above: Result Comment: [facility]???s estimated glomerular filtration rate (eGFR) will [...] individuals. Performed By: #### L [id number] #### [facility] ([facility]) [address] [place] [address] Glucose [Mass/Vol] 41 mg/dL Invalid Interpretation Code 70-100 [facility] Comment on above: Performed By: #### L [id number] #### [facility] ([facility]) [address] [place] [address] Potassium [Moles/Vol] 5.3 mmol/L High 3.5-5.1 [facility] Comment on above: Performed By: #### L [id number] #### [facility] ([facility]) [address] [place] [address] Sodium [Moles/Vol] 139 mmol/L Normal 136-145 [facility] Comment on above: Performed By: #### L [id number] #### [facility] ([facility]) [address] [place] [address] Urea nitrogen [Mass/Vol] 20 mg/dL Normal 7-25 [facility] Comment on above: Performed By: #### L [id number] #### [facility] ([facility]) [address] [place] [address] UREA NITROGEN/CREATININE (MASS RATIO) IN SER/PLAS 23.3 Normal [facility] Comment on above: Performed By: #### L [id number] #### [facility] ([facility]) [address] [place] [address] XR CHEST PORTABLEon 12-27-19 XR CHEST PORTABLE [...] atelectatic changes. Redemonstration of cardiomegaly. Interpreted by: Rdaha Rizo MD Signed by: Radha Rizo MD 12/25/22 Final result Normal [facility] B-TYPE NATRIURETIC PEPTIDEon 12-25-2022 Natriuretic peptide B (Bld) [Mass/Vol] 1854 pg/mL High 0-100 [facility] Comment on above: Performed By: #### L [id number] #### [facility] ([facility]) [address] [place] [address] BASIC METABOLIC PANELon 12-10 Anion gap [Moles/Vol] 15 mmol/L Normal 7-20 [facility] Comment on above: Performed By: #### L [id number] #### [facility] ([facility]) [address] [place] [address] Calcium [Mass/Vol] 8.0 mg/dL Low 8.6-10.3 [facility] Comment on above: Performed By: #### L [id number] #### [facility] ([facility]) [address] [place] [address] Chloride [Moles/Vol] 106 mmol/L Normal 98-107 [facility] Comment on above: Performed By: #### L [id number] #### [facility] ([facility]) [address] [place] [address] CO2 [Moles/Vol] 22 mmol/L Normal 21-31 [facility] Comment on above: Performed By: #### L [id number] #### [facility] ([facility]) [address] [place] [address] Creatinine [Mass/Vol] 0.77 mg/dL Normal 0.60-1.20 [facility] Comment on above: Performed By: #### L [id number] #### [facility] ([facility]) [address] [place] [address] GLOMERULAR FILTRATION RATE ML/MIN/1.73 SQ M.PREDICTED 75.1 mL/min/1.73m*2 Normal >60.0 [facility] Comment on above: Result Comment: [facility]???s estimated glomerular filtration rate (eGFR) will [...] individuals. Performed By: #### L [id number] #### [facility] ([facility]) [address] [place] [address] Glucose [Mass/Vol] 48 mg/dL Invalid Interpretation Code 70-100 [facility] Comment on above: Performed By: #### L [id number] #### [facility] ([facility]) [address] [place] [address] Potassium [Moles/Vol] 5.3 mmol/L High 3.5-5.1 [facility] Comment on above: Result Comment: M-CH EMISTRY SPECIMEN MODERATELY HEMOLYZED RESULTS MAY NOT BE ACCURATE Performed By: #### L [id number] #### [facility] ([facility]) [address] [place] [address] Sodium [Moles/Vol] 138 mmol/L Normal 136-145 [facility] Comment on above: Performed By: #### L [id number] #### [facility] ([facility]) [address] [place] [address] Urea nitrogen [Mass/Vol] 14 mg/dL Normal 7-25 [facility] Comment on above: Performed By: #### L [id number] #### [facility] ([facility]) [address] [place] [address] UREA NITROGEN/CREATININE (MASS RATIO) IN SER/PLAS 18.2 Normal [facility] Comment on above: Performed By: #### L [id number] #### [facility] ([facility]) [address] [place] [address] Basic Metabolic Profon 12-25 Anion gap [Moles/Vol] 12 mmol/L Normal 9-17 [facility] Comment on above: Performed By: #### Jonh AGUILERA UAX #### [facility] [id number] [place] [id number] Senior Copywriter: Paddy Juares MD Calcium [Mass/Vol] 8.4 mg/dL Low 8.6-10.4 [facility] Comment on above: Performed By: #### Jonh AGUILERA UAX #### [facility] [id number] [place] [id number] Senior Copywriter: Paddy Juares MD Chloride [Moles/Vol] 103 mmol/L Normal 98-107 [facility] Comment on above: Performed By: #### U WILLY, UAX #### [facility] [address] [place], [place] [id number] Senior Copywriter: Paddy Juares MD CO2 [Moles/Vol] 25 mmol/L Normal 20-31 [facility] Comment on above: Performed By: #### U MICAO, UAX #### [place] [address] Senior Copywriter: Paddy Juares MD Creatinine [Mass/Vol] 0.72 mg/dL Normal 0.50-0.90 [facility] Comment on above: Performed By: #### U MICAO, UAX #### [place] [address] Senior Copywriter: Paddy Juares MD GFR/1.73 sq M.predicted among non-blacks MDRD (S/P/Bld) [Vol rate/Area] mL/min/{1.73_m2} Normal >60 [facility] Comment on above: Result Comment: These [...] Performed By: #### U MAILEO, UAX #### [place] [address] Senior Copywriter: Paddy Juares MD Glucose [Mass/Vol] 79 mg/dL Normal 70-99 [facility] Comment on above: Performed By: #### U MICAO, UAX #### [place] [id number] Senior Copywriter: Paddy Juares MD Potassium [Moles/Vol] 3.7 mmol/L Normal 3.7-5.3 [facility] Comment on above: Performed By: #### U MICAO, UAX #### [address], [place] [phone] Senior Copywriter: Paddy Juares MD Sodium [Moles/Vol] 140 mmol/L Normal 135-144 [facility] Comment on above: Performed By: #### Jonh AGUILERA, UAX #### [address] [address] Senior Copywriter: Paddy Juares MD Urea nitrogen [Mass/Vol] 13 mg/dL Normal 8-23 [facility] Comment on above: Performed By: #### Jonh AGUILERA UAX #### [place] [address] Senior Copywriter: Paddy Juares MD Brain Natri. Peptideon 12-25 Natriuretic peptide B (Bld) [Mass/Vol] 8736 pg/mL High <300 [facility] Comment on above: Result Comment: An age-independent cutoff point of 300 pg/ml has a 98% negative predictive value excluding acute heart failure. Performed By: #### Jonh AGUILERA UAX #### [place] [id number] Senior Copywriter: Paddy Juares MD CBCon 12-25-2022 Hemoglobin (Bld) [Mass/Vol] 14.0 g/dL Normal 12.0-16.0 [facility] Comment on above: Performed By: #### L [id number] #### [facility] ([facility]) [address] [place] [address] Performed By: #### U WILLY UAX #### [address] [address] Senior Copywriter: Paddy Juares MD Erythrocyte distribution width (RBC) [Ratio] 21.7 % High 11.5-15.0 [facility] Comment on above: Performed By: #### L [id number] #### [facility] ([facility]) [address] [place] [address] ERYTHROCYTE MEAN CORPUSCULAR HEMOGLOBIN CONCENTRATION (G/DL) BY AUTOMATED 31.1 g/dL Low 32.0-35.0 [facility] Comment on above: Performed By: #### L [id number] #### [facility] ([facility]) [address] [place] [address] Hematocrit (Bld) [Volume fraction] 45.0 % Normal 36.0-48.0 [facility] Comment on above: Performed By: #### L [id number] #### [facility] ([facility]) [address] [place] [address] MCH (RBC) [Entitic mass] 28.9 pg Normal 27.0-33.0 [facility] Comment on above: Performed By: #### L [id number] #### [facility] ([facility]) [address] [place] [address] MCV (RBC) [Entitic vol] 92.8 fL Normal 82.0-98.0 [facility] Comment on above: Performed By: #### L [id number] #### [facility] ([facility]) [address] [place] [address] PLATELETS (10*3/UL) IN BLOOD AUTOMATED COUNT 327 10*3/uL Normal 150-400 [facility] Comment on above: Performed By: #### L [id number] #### [facility] ([facility]) [address] [place] [address] RBC (Bld) [#/Vol] 4.85 10*6/uL Normal 3.80-5.00 [facility] Comment on above: Performed By: #### L [id number] #### [facility] ([facility]) [address] [place] [address] WBC (Bld) [#/Vol] 9.86 10*3/uL Normal 4.00-10.60 [facility] Comment on above: Performed By: #### L [id number] #### [facility] ([facility]) [address] [place] [address] CBC with Diffon 12-25-2022 Abs. Basophil 0.00 k/uL Normal 0.0-0.2 [facility] Comment on above: Performed By: #### Jonh AGUIELRA, UAX #### [place] [address] Senior Copywriter: Paddy Juares MD Abs.Neutrophil (Seg) 9.63 k/uL High 1.8-7.7 [facility] Comment on above: Performed By: #### Jonh AGUILERA UAX #### [place] [address] Senior Copywriter: Paddy Juares MD Basophils/100 WBC (Bld) 0 % Normal 0-2 [facility] Comment on above: Performed By: #### Jonh AGUILERA UAX #### [place] [address] Senior Copywriter: Paddy Juares MD Eosinophils (Bld) [#/Vol] 0.00 10*3/uL Normal 0.0-0.4 [facility] [facility] Comment on above: Performed By: #### Jonh AGUILERA UAX #### [place] [address] Senior Copywriter: Paddy Juares MD Eosinophils/100 WBC (Bld) 0 % Low 1-4 [facility] Comment on above: Performed By: #### U WILLY UAX #### [place] [address] Senior Copywriter: Paddy Juares MD Lymphocytes (Bld) [#/Vol] 0.32 10*3/uL Low 1.0-4.8 [facility] Comment on above: Performed By: #### U MAILEO, UAX #### [place] [address] Senior Copywriter: Paddy Juares MD Lymphocytes/100 WBC (Bld) 3 % Low 24-44 [facility] Comment on above: Performed By: #### U MAILEO, UAX #### [place] [address] Senior Copywriter: Paddy Juares MD Monocytes (Bld) [#/Vol] 0.75 10*3/uL Normal 0.1-0.8 [facility] Comment on above: Performed By: #### U MALIEO, UAX #### [place] [address] Senior Copywriter: Paddy Juares MD Monocytes/100 WBC (Bld) 7 % Normal 1-7 [facility] Comment on above: Performed By: #### U WILLY, UAX #### [place] [address] Senior Copywriter: Paddy Juares MD Morphology Juan Manuel (Bld) [Interp] ANISOCYTOSIS PRESENT Normal [facility] Comment on above: Performed By: #### U WILLY, UAX #### [place] [address] Senior Copywriter: Paddy Juares MD Neutrophil (Seg) 90 % High 36-66 [facility] Comment on above: Performed By: #### U MAILEO, UAX #### [place] [address] Senior Copywriter: Paddy Juares MD Erythrocyte distribution width (RBC) [Ratio] 23.0 % High 12.5-15.4 [facility] Comment on above: Performed By: #### U MAILEO, UAX #### [place] [address] Senior Copywriter: Paddy Juares MD Hematocrit (Bld) [Volume fraction] 44.7 % Normal 36-46 [facility] Comment on above: Performed By: #### U MAILEO, UAX #### [place] [address] Senior Copywriter: Paddy Juares MD MCH (RBC) [Entitic mass] 29.1 pg Normal 26-34 [facility] Comment on above: Performed By: #### U WILLY, UAX #### [place] [address] Senior Copywriter: Paddy Juares MD MCHC (RBC) [Mass/Vol] 31.3 g/dL Normal 31-37 [facility] Comment on above: Performed By: #### U WILLY UAX #### [place] [address] Senior Copywriter: Paddy Juares MD MCV (RBC) [Entitic vol] 92.9 fL Normal 80-100 [facility] Comment on above: Performed By: #### U WILLY, UAX #### [place] [address] Senior Copywriter: Paddy Juares MD Platelet mean volume (Bld) [Entitic vol] 10.5 fL Normal 8.0-14.0 [facility] Comment on above: Performed By: #### U MAILEO, UAX #### [place] [id number] Senior Copywriter: Paddy Juares MD Platelets (Bld) [#/Vol] 289 10*3/uL Normal 140-450 [facility] Comment on above: Performed By: #### U MICAO, UAX #### [address] [address] Senior Copywriter: Paddy Juares MD RBC (Bld) [#/Vol] 4.81 10*6/uL Normal 4.0-5.2 [facility] Comment on above: Performed By: #### U MICAO, UAX #### [place] [address] Senior Copywriter: Paddy Juares MD WBC (Bld) [#/Vol] 10.7 10*3/uL Normal 3.5-11.0 [facility] Comment on above: Performed By: #### U MICAO, UAX #### [place] [address] Senior Copywriter: Paddy Juares MD Specimen Rejectionon 023 Reason for rejection Unable to perform testing: Specimen quantity not sufficient. Normal [facility] Comment on above: Performed By: #### U MICAO, UAX #### [place] [address] Senior Copywriter: Paddy Juares MD Source of sample .BLOOD Normal [facility] Comment on above: Performed By: #### U MICAO, UAX #### [place] [address] Senior Copywriter: Paddy Juares MD Test ordered BMP TROPI BNP Normal [facility] Comment on above: Performed By: #### U MICAO, UAX #### [place] [address] Senior Copywriter: Paddy Juares MD Troponinon 12-25-2022 Troponin, High Sens 51 ng/L High 0-14 [facility] Comment on above: Result Comment: High Sensitivity Troponin values cannot be compared with other Troponin methodologies. Performed By: #### T ROPI #### [address] [address] Senior Copywriter: Paddy Juares MD Troponin, High Sens 50 ng/L High 0-14 [facility] Comment on above: Result Comment: High Sensitivity Troponin values cannot be compared with other Troponin methodologies. Performed By: #### U MICAO, UAX #### [address] [address] Senior Copywriter: Paddy Juares MD UA w/Reflex Cultureon 2022 Bilirubin, SemiQt,Ur Negative Normal NEG [facility] Comment on above: Performed By: #### U MICAO, UAX #### [address] [address] Senior Copywriter: Paddy Juares MD Blood, Urine Negative Normal NEG [facility] Comment on above: Performed By: #### U MICAO, UAX #### [place] [address] Senior Copywriter: Paddy Juares MD Clarity (U) Clear Normal CLEAR [facility] Comment on above: Performed By: #### U MICAO, UAX #### [place] [address] Senior Copywriter: Paddy Juares MD Color (U) Yellow Normal YEL [facility] Comment on above: Performed By: #### U MICAO, UAX #### [address] [place] [address] Senior Copywriter: Paddy Juares MD Glucose Ql (U) Negative Normal NEG [facility] Comment on above: Performed By: #### U MICAO, UAX #### [place] [address] Senior Copywriter: Paddy Juares MD Ketones Ql (U) Negative Normal NEG [facility] Comment on above: Performed By: #### U MICAO, UAX #### [place] [address] Senior Copywriter: Paddy Juares MD Leukocyte esterase Test strip Ql (U) Negative Normal NEG [facility] Comment on above: Performed By: #### U MICAO, UAX #### [place] [address] Senior Copywriter: Paddy Juares MD Nitrite,Ur Positive Abnormal NEG [facility] Comment on above: Performed By: #### U MICAO, UAX #### [place] [address] Senior Copywriter: Paddy Juares MD PH,Ur 8.0 Normal 5.0-8.0 [facility] Comment on above: Performed By: #### U MICAO, UAX #### [place] [address] Senior Copywriter: Paddy Juares MD Protein Ql (U) Negative Normal NEG [facility] Comment on above: Performed By: #### U MICAO, UAX #### [place] [address] Senior Copywriter: Paddy Juares MD Spec. Troy,Ur 1.015 Normal 1.005-1.030 [facility] Comment on above: Performed By: #### U MAILEO, UAX #### [facility] [address] [place], [place] [id number] Senior Copywriter: Paddy Juares MD Urobilinogen,Ur Normal Normal NORM [facility] Comment on above: Performed By: #### U MAILEO, UAX #### [facility] [address] [place], [place] [phone] Senior Copywriter: Paddy Juares MD URINALYSISon 12-25-2022 BILIRUBIN, TOTAL PRESENCE IN URINE Negative Normal Negative [facility] Comment on above: Order Comment: Micro scopics not performed on urines with negative chemical reactions unless requested on original order. Performed By: #### L [id number] #### [facility] ([facility]) [address] [place] [address] Clarity (U) Clear Normal Clear [facility] Comment on above: Order Comment: Micro scopics not performed on urines with negative chemical reactions unless requested on original order. Performed By: #### L [id number] #### [facility] ([facility]) [address] [place] [address] Color (U) Yellow Normal Yellow [facility] Comment on above: Order Comment: Micro scopics not performed on urines with negative chemical reactions unless requested on original order. Performed By: #### L [id number] #### [facility] ([facility]) [address] [place] [address] Glucose (U) [Mass/Vol] Negative Normal Negative [facility] Comment on above: Order Comment: Micro scopics not performed on urines with negative chemical reactions unless requested on original order. Performed By: #### L [id number] #### [facility] ([facility]) [address] [place] [address] HEMOGLOBIN PRESENCE IN URINE Negative Normal Negative [facility] Comment on above: Order Comment: Micro scopics not performed on urines with negative chemical reactions unless requested on original order. Performed By: #### L [id number] #### [facility] ([facility]) [address] [place] [address] Ketones Ql (U) Negative Normal Negative [facility] Comment on above: Order Comment: Micro scopics not performed on urines with negative chemical reactions unless requested on original order. Performed By: #### L [id number] #### [facility] ([facility]) [address] [place] [address] LEUKOCYTE ESTERASE PRESENCE IN URINE BY TEST STRIP Negative Normal Negative [facility] Comment on above: Order Comment: Micro scopics not performed on urines with negative chemical reactions unless requested on original order. Performed By: #### L [id number] #### [facility] ([facility]) [address] [place] [address] NITRITE PRESENCE IN URINE Negative Normal Negative [facility] Comment on above: Order Comment: Micro scopics not performed on urines with negative chemical reactions unless requested on original order. Performed By: #### L [id number] #### [facility] ([facility]) [address] [place] [address] pH (U) 8.0 [pH] Normal 5.0-8.0 [facility] Comment on above: Order Comment: Micro scopics not performed on urines with negative chemical reactions unless requested on original order. Performed By: #### L [id number] #### [facility] ([facility]) [address] [place] [address] Protein (U) [Mass/Vol] Negative Normal Negative [facility] Comment on above: Order Comment: Micro scopics not performed on urines with negative chemical reactions unless requested on original order. Performed By: #### L [id number] #### [facility] ([facility]) [address] [place] [address] Specific gravity (U) [Rel density] 1.009 Low 1.015-1.020 [facility] Comment on above: Order Comment: Micro scopics not performed on urines with negative chemical reactions unless requested on original order. Performed By: #### L [id number] #### [facility] ([facility]) [address] [place] [address] URINE CULTURE, ROUTINEon Bacteria identified Cx Nom (U) <10,000 CFU/ML No Significant Growth Normal [facility] Comment on above: Performed By: #### L [id number] #### [facility] ([facility]) [address] [place] [address] Urinalysis,Microon 3 Bacteria MANY Abnormal NONE [facility] Comment on above: Performed By: #### U MAILEO, UAX #### [address] [phone] Senior Copywriter: Paddy Juares MD Epithelial cells LM Ql (Urine sed) 0 TO 2 Normal 0-5 [facility] Comment on above: Performed By: #### U WILLY UAX #### [place] [id number] Senior Copywriter: Paddy Juares MD Other Observations Utilizing a urinalysis as the only screening method to exclude a potential Abnormal NREQ [facility] Comment on above: Result Comment: urop athogen can be unreliable in many patient populations. Rapid screening tests are less sensitive than culture and if UTI is a clinical possibility, culture should be considered despite a negative urinalysis. Performed By: #### U WILLY, UAX #### [address] [id number] Senior Copywriter: Paddy Juares MD Urine RBC's 0 TO 2 Normal 0-2 [facility] Comment on above: Performed By: #### U WILLY, UAX #### [address] [address] Senior Copywriter: Paddy Juares MD Urine WBC's 0 TO 2 Normal 0-5 [facility] Comment on above: Performed By: #### U WILLY UAX #### [facility] [address] [place] [id number] Senior Copywriter: Paddy Juares MD BASIC METABOLIC PANELon 05-0 Anion gap [Moles/Vol] 9 mmol/L Normal 7-20 [facility] Comment on above: Performed By: #### L [id number] #### [facility] ([facility]) [address] [place] [address] Calcium [Mass/Vol] 7.5 mg/dL Low 8.6-10.3 [facility] Comment on above: Performed By: #### L [id number] #### [facility] ([facility]) [address] [place] [address] Chloride [Moles/Vol] 101 mmol/L Normal 98-107 [facility] Comment on above: Performed By: #### L [id number] #### [facility] ([facility]) [address] [place] [address] CO2 [Moles/Vol] 36 mmol/L High 21-31 [facility] Comment on above: Performed By: #### L [id number] #### [facility] ([facility]) [address] [place] [address] Creatinine [Mass/Vol] 0.83 mg/dL Normal 0.60-1.20 [facility] Comment on above: Performed By: #### L [id number] #### [facility] ([facility]) [address] [place] [address] GLOMERULAR FILTRATION RATE ML/MIN/1.73 SQ M.PREDICTED 68.6 mL/min/1.73m*2 Normal >60.0 [facility] Comment on above: Result Comment: The [facility]???s estimated glomerular filtration rate (eGFR) will [...] individuals. Performed By: #### L [id number] #### [facility] ([facility]) [address] [place] [address] Glucose [Mass/Vol] 136 mg/dL High 70-100 [facility] Comment on above: Performed By: #### L [id number] #### [facility] ([facility]) [address] [place] [address] Potassium [Moles/Vol] 3.3 mmol/L Low 3.5-5.1 [facility] Comment on above: Performed By: #### L [id number] #### [facility] ([facility]) [address] [place] [address] Sodium [Moles/Vol] 143 mmol/L Normal 136-145 [facility] Comment on above: Performed By: #### L [id number] #### [facility] ([facility]) [address] [place] [address] Urea nitrogen [Mass/Vol] 17 mg/dL Normal 7-25 [facility] Comment on above: Performed By: #### L [id number] #### [facility] ([facility]) [address] [place] [address] UREA NITROGEN/CREATININE (MASS RATIO) IN SER/PLAS 20.5 Normal [facility] Comment on above: Performed By: #### L [id number] #### [facility] ([facility]) [address] [place] [address] CBCon 12-17-2022 Erythrocyte distribution width (RBC) [Ratio] 20.5 % High 11.5-15.0 [facility] Comment on above: Performed By: #### L [id number] #### [facility] ([facility]) [address] [place] [address] ERYTHROCYTE MEAN CORPUSCULAR HEMOGLOBIN CONCENTRATION (G/DL) BY AUTOMATED 29.4 g/dL Low 32.0-35.0 [facility] Comment on above: Performed By: #### L [id number] #### [facility] ([facility]) [address] [place] [address] Hematocrit (Bld) [Volume fraction] 43.6 % Normal 36.0-48.0 [facility] Comment on above: Performed By: #### L [id number] #### [facility] ([facility]) [address] [place] [address] Hemoglobin (Bld) [Mass/Vol] 12.8 g/dL Normal 12.0-15.0 [facility] Comment on above: Performed By: #### L [id number] #### [facility] ([facility]) [address] [place] [address] MCH (RBC) [Entitic mass] 28.1 pg Normal 27.0-33.0 [facility] Comment on above: Performed By: #### L [id number] #### [facility] ([facility]) [address] [place] [address] MCV (RBC) [Entitic vol] 95.6 fL Normal 82.0-98.0 [facility] Comment on above: Performed By: #### L [id number] #### [facility] ([facility]) [address] [place] [address] PLATELETS (10*3/UL) IN BLOOD AUTOMATED COUNT 210 10*3/uL Normal 150-400 [facility] Comment on above: Performed By: #### L [id number] #### [facility] ([facility]) [address] [place] [address] RBC (Bld) [#/Vol] 4.56 10*6/uL Normal 3.80-5.00 [facility] Comment on above: Performed By: #### L [id number] #### [facility] ([facility]) [address] [place] [address] WBC (Bld) [#/Vol] 6.10 10*3/uL Normal 4.00-10.60 [facility] Comment on above: Performed By: #### L [id number] #### [facility] ([facility]) [address] [place] [address] DIGOXIN LEVELon 12-17-2022 DIGOXIN (NG/ML) IN SER/PLAS 1.3 ng/mL Normal 0.7-2 [facility] Comment on above: Performed By: #### L [id number] #### [facility] ([facility]) [address] [place] [address] EKG Rhythm Stripon 3 [facility] Lactate Dehydrogenaseon LDH [Catalytic activity/Vol] 418 U/L High 135-214 [facility] Comment on above: Performed By: #### L D #### [facility] [address] [place] [address] Senior Copywriter: Rogelio Franks MD #### TROPI, BMP, PT, TP #### [facility] [address] [place], [place] [phone] Senior Copywriter: Paddy Juares MD Cholesterol in LDL [Mass/Vol] 418 U/L High 135 - 214 U/L [facility] Interpretation and review of laboratory results Abnormal [facility] EKG Rhythm Stripon 3 [facility] No Panel Informationon 12-13 Successful ultrasoun d [...] chest with one percent lidocaine. A 5 Mosoth[place] Yueh needle was advanced into the pleural [...] was removed. IMPRESSION: Successful ultrasound guided thoracentesis. [facility] Work Phone: Radiology Study observation (narrative) [facility] 3[facility] Forms Phone: No Panel InformationOrdered By: Nilo Rawls on 12-13-2022 [facility] Work Phone: Protein, Totalon 12-13-2022 Protein [Mass/Vol] 5.7 g/dL Low 6.4-8.3 [facility] Comment on above: Performed By: #### L D #### [facility] [address] [place] [address] Senior Copywriter: Rogelio Franks MD #### ABDIRASHID, BMP, PT, TP #### [facility] reQall [address] [address] Senior Copywriter: Paddy Juares MD Interpretation and review of laboratory results Abnormal [facility] Protein [Mass/Vol] 5.7 g/dL Low 6.4 - 8.3 g/dL [facility] Lactate, Sepsison 12-12-2022 Lactic Acid, Sepsis 2.1 mmol/L High 0.5-1.9 [facility] Comment on above: Performed By: #### U MICAO, UAX #### [address] [address] Senior Copywriter: Paddy Juares MD Interpretation and review of laboratory results Abnormal [facility] Lactic Acid, Sepsis 2.1 mmol/L High 0.5 - 1. 9 mmol/L [facility] Lactic Acid, Sepsis 2.9 mmol/L High 0.5-1.9 [facility] Comment on above: Performed By: #### U MICAO, UAX #### [address] [address] Senior Copywriter: Paddy Juares MD Interpretation and review of laboratory results Abnormal [facility] Lactic Acid, Sepsis 2.9 mmol/L High 0.5 - 1. 9 mmol/L [facility] Microscopic Urinalysison Bacteria, UA MANY Abnormal None [facility] Epithelial Cells UA TOO NUMEROUS TO COUNT [facility] Interpretation and review of laboratory results Abnormal [facility] Other Observations UA Utilizing a urinalysis as the only screening method to exclude a potential uropathogen can be unreliable in many patient populations. Rapid screening tests are less sensitive than culture and if UTI is a clinical possibility, culture should be considered despite a negative urinalysis. Abnormal NOT REQ. [facility] RBC clumps Auto (Urine sed) [#/Area] 0 TO 2 [facility] WBC, UA 0 TO 2 [facility] UA w/Reflex Cultureon 2022 Bilirubin, SemiQt,Ur Negative Normal NEG [facility] Comment on above: Performed By: #### U AX, UMICAO #### [address] [address] Senior Copywriter: Paddy Juares MD Blood, Urine Negative Normal NEG [facility] Comment on above: Performed By: #### U AX, UMICAO #### [place] [address] Senior Copywriter: Paddy Juares MD Clarity (U) Cloudy Abnormal CLEAR [facility] Comment on above: Performed By: #### U AX, UMICAO #### [place] [address] Senior Copywriter: Paddy Juares MD Color (U) Yellow Normal YEL [facility] Comment on above: Performed By: #### U AX, UMICAO #### [place] [address] Senior Copywriter: Paddy Juares MD Glucose Ql (U) Negative Normal NEG [facility] Comment on above: Performed By: #### U AX, UMICAO #### [place] [address] Senior Copywriter: Paddy Juares MD Ketones Ql (U) Negative Normal NEG [facility] Comment on above: Performed By: #### U AX, UMICAO #### [place] [address] Senior Copywriter: Paddy Juares MD Leukocyte esterase Test strip Ql (U) Negative Normal NEG [facility] Comment on above: Performed By: #### U AX, UMICAO #### [address] [id number] Senior Copywriter: Paddy Juares MD Nitrite,Ur Negative Normal NEG [facility] Comment on above: Performed By: #### U AX, UMICAO #### [place] [address] Senior Copywriter: Paddy Juares MD PH,Ur 7.0 Normal 5.0-8.0 [facility] Comment on above: Performed By: #### U AX, UMICAO #### [place] [address] Senior Copywriter: Paddy Juares MD Protein Ql (U) Negative Normal NEG [facility] Comment on above: Performed By: #### U AX, UMICAO #### [place] [address] Senior Copywriter: Paddy Juares MD Spec. Troy,Ur 1.015 Normal 1.005-1.030 [facility] Comment on above: Performed By: #### U AX, UMICAO #### [place] [address] Senior Copywriter: Paddy Juares MD Urobilinogen,Ur Normal Normal NORM [facility] Comment on above: Performed By: #### U AX, UMICAO #### [place] [address] Senior Copywriter: Paddy Juares MD Urinalysis with Reflex to Cu ltureon 12-12-2022 Bilirubin Urine Negative NEGATIVE [facility] [place] Color, UA Yellow Yellow [facility] Glucose Auto test strip (U) [Mass/Vol] Negative NEGATIVE [facility] Interpretation and review of laboratory results Abnormal [facility] Ketones (U) [Mass/Vol] Negative NEGATIVE [facility] Leukocyte esterase Auto test strip Ql (U) Negative NEGATIVE [facility] Nitrite Auto test strip Ql (U) Negative NEGATIVE [facility] Protein (U) [Mass/Vol] 7.0 mg/dL 5.0 - 8.0 [facility] Protein (U) [Mass/Vol] Negative NEGATIVE [facility] Specific Troy, UA 1.015 1.005 - 1.030 [facility] Turbidity UA Cloudy Abnormal Clear [facility] Urine Hgb Negative NEGATIVE [facility] Urobilinogen, Urine Normal Normal [facility] Urinalysis,Microon 3 Bacteria MANY Abnormal NONE [facility] Comment on above: Performed By: #### U AX, UMICAO #### [address] [address] Senior Copywriter: Paddy Juares MD Epithelial cells LM Ql (Urine sed) TOO NUMEROUS TO COUNT Normal [address] [place] [address] Comment on above: Performed By: #### U AX UMICAO #### [place] [address] Senior Copywriter: Paddy Juares MD Other Observations Utilizing a urinalysis as the only screening method to exclude a potential [facility] Comment on above: Result Comment: urop athogen can be unreliable in many patient populations. Rapid screening tests are less sensitive than culture and if UTI is a clinical possibility, culture should be considered despite a negative urinalysis. Performed By: #### U AX, UMICAO #### [place] [id number] Senior Copywriter: Paddy Juares MD Urine RBC's 0 TO 2 Normal 0-2 [facility] Comment on above: Performed By: #### U AX, UMICAO #### [address] [address] Senior Copywriter: Paddy Juares MD Urine WBC's 0 TO 2 Normal 0-5 [facility] Comment on above: Performed By: #### U AX, FRANKY #### [facility] [address] [place] [address] Senior Copywriter: Paddy Juares MD XR CHEST PORTABLEon 12-13-19 [...] Tim Sánchez MD 12/12/22 Final result Normal [facility] Unchanged chest demonstrating cardiomegaly and right [...] chest demonstrating cardiomegaly and right pleural effusion [facility] Phone: Radiology Study observation (narrative) [facility] Phone: XR CHEST PORTABLEOrdered By: Tim Sánchez on 12-12-2022 [employer] Work Phone: ECHO Complete 2D W Doppler W ColorOrdered By: Tyrese Clemons on 12-11-2022 Left ventricular Ejection fraction 33 [facility] Phone: LVEF MODALITY ECHO [facility] [employer] Phone: [facility] [employer] Phone: ECHO Complete 2D W Doppler W Coloron 12-11-2022 [facility] Transthoracic Echocardiography Report (TTE) Patient Name MINARCIN Date of Study 12/10/2022 REBEKAH Date of 1935 Gender Female Age 87 year(s) Race Room Number PB324 Height: 64 inch, 162.56 cm Corporate ID [id number] Weight: 116 pounds, 52.6 kg # Patient Acct [id number] BSA: 1.55 m^2 BMI: 19.91 kg/m^2 # MR # [id number] Electromechanical Assembly Technician Samy Man, [facility] Interpreting Physician Tyrese Clemons Fellow Referring Nurse Practitioner Interpreting Referring Physician Stephen Gamboa Fellow Type of Study TTE procedure:2D Echocardiogram, M-Mode, Doppler, Color Doppler. Procedure Date Date: 12/10/2022 Start: 03:57 PM Study Location: [facility] Technical Quality: Adequate visualization Indications:Congestiv e [...] Clemons, / Result, Unknown Provider - 12/11/2022 [facility] Transthoracic Echocardiography Report (TTE) Patient Name MINARCIN Date of Study 12/10/2022 REBEKAH Date of 1935 Gender Female Age 87 year(s) Race Room Number PB324 Height: 64 inch, 162.56 cm Corporate ID [id number] Weight: 116 pounds, 52.6 kg # Patient Acct [id number] BSA: 1.55 m^2 BMI: 19.91 kg/m^2 # MR # [id number] Electromechanical Assembly Technician Samy Man [facility] Interpreting Physician Tyrese Clemons Fellow Referring Nurse Practitioner Interpreting Referring Physician Stephen Cardona Type of Study TTE procedure:2D Echocardiogram, M-Mode, Doppler, Color Doppler. Procedure Date Date: 12/10/2022 Start: 03:57 PM Study Location: [facility] Technical Quality: Adequate visualization Indications:Congestiv e [...] Gradient: 1.96 mmHg Estimated PASP: 35.46 mmHg [facility] Phone: EKG 12 Leadon 12-11-2022 Atrial Rate 75 BPM [facility] [employer] Phone: Q-T Interval 418 ms [facility] Phone: QRS Duration 124 ms [facility] Phone: QTc Calculation (Bazett) 466 ms [facility] Phone: R Humble 2 degrees [facility] Phone: T Humble -91 degrees [facility] Phone: Ventricular Rate 75 BPM AKI [employer] Phone: Atrial fibrillation Right bundle branch block [...] Right bundle branch block is now Present [facility] Phone: [facility] Phone: EKG Rhythm Stripon [facility] [employer] FLUORO FOR SURGICAL PROCEDUR ESon 12-11-2022 FLUORO FOR SURGICAL PROCEDURES Radiology exam is complete. No Radiologist dictation. Please follow up with ordering provider. Final result Normal [facility] Radiology exam is complete. No Radiologist dictation. Please follow up with ordering provider. [facility] RIS CONSOLID[facility] Basic Metabolic Panelon 05-0 Anion gap [Moles/Vol] 8 mmol/L Low 9 - 17 mmol/L [facility] Calcium [Mass/Vol] 8.4 mg/dL Low 8.6 - 10. 4 mg/dL [facility] Chloride [Moles/Vol] 104 mmol/L 98 - 10 7 mmol/L [facility] CO2 [Moles/Vol] 31 mmol/L 20 - 31 mmol/L [facility] Creatinine [Mass/Vol] 0.99 mg/dL High 0.50 - 0.90 mg/dL [facility] GFR/1.73 sq M.predicted MDRD (S/P/Bld) [Vol rate/Area] 56 mL/min/{1.73_m2} Low - PINF [facility] Comment on above: These results are [...] 121 mg/dL High 70 - 99 mg/dL [facility] Interpretation and review of laboratory results Abnormal [facility] Potassium [Moles/Vol] 3.8 mmol/L 3.7 - 5.3 mmol/L [facility] Sodium [Moles/Vol] 143 mmol/L 135 - 144 mmol/L [facility] Urea nitrogen [Mass/Vol] 24 mg/dL High 8 - 23 mg/dL [facility] Basic Metabolic Profon 12-10 Anion gap [Moles/Vol] 8 mmol/L Low 9-17 [facility] Comment on above: Performed By: #### L D #### [employer] [address] [place] [address] Senior Copywriter: Rogelio Franks MD #### TROPI, BMP, PT, TP #### [facility] [address] [place] [address] Senior Copywriter: Paddy Juares MD Calcium [Mass/Vol] 8.4 mg/dL Low 8.6-10.4 [facility] Comment on above: Performed By: #### L D #### [address] [id number] Senior Copywriter: Rogelio Franks MD #### TROPI, BMP, PT, TP #### [address] [phone] Senior Copywriter: Paddy Juares MD Chloride [Moles/Vol] 104 mmol/L Normal 98-107 [facility] Comment on above: Performed By: #### L D #### [address] [id number] Senior Copywriter: Rogelio Franks MD #### TROPI, BMP, PT, TP #### [address] [address] Senior Copywriter: Paddy Juares MD CO2 [Moles/Vol] 31 mmol/L Normal 20-31 [facility] Comment on above: Performed By: #### L D #### [address] [id number] Senior Copywriter: Rogelio Franks MD #### TROPI, BMP, PT, TP #### [address] [address] Senior Copywriter: Paddy Juares MD Creatinine [Mass/Vol] 0.99 mg/dL High 0.50-0.90 [facility] Comment on above: Performed By: #### L D #### [address] [id number] Senior Copywriter: Rogelio Franks MD #### TROPI, BMP, PT, TP #### [address] [address] Senior Copywriter: Paddy Juares MD GFR/1.73 sq M.predicted among non-blacks MDRD (S/P/Bld) [Vol rate/Area] 56 mL/min/{1.73_m2} Low >60 [facility] Comment on above: Result Comment: These [...] secretion. Performed By: #### L D #### [address] [address] Senior Copywriter: Rogelio Franks MD #### TROPRobyn, BMP, PT, TP #### [address] [address] Senior Copywriter: Paddy Juares MD Glucose [Mass/Vol] 121 mg/dL High 70-99 [facility] Comment on above: Performed By: #### L D #### [address] [address] Senior Copywriter: Rogelio Franks MD #### TROPI BMP, PT, TP #### [place] [id number] [place] [address] Senior Copywriter: Paddy Juares MD Potassium [Moles/Vol] 3.8 mmol/L Normal 3.7-5.3 [facility] Comment on above: Performed By: #### L D #### [address] [address] Senior Copywriter: Rogelio Franks MD #### TROPI, BMP, PT, TP #### [address] [place] [phone] Senior Copywriter: Paddy Juares MD Sodium [Moles/Vol] 143 mmol/L Normal 135-144 [facility] Comment on above: Performed By: #### L D #### [facility] [address] [place] [address] [phone] Senior Copywriter: Rogelio Franks MD #### TROPRobyn BMP, PT, TP #### [address] [phone] Senior Copywriter: Paddy Juares MD Urea nitrogen [Mass/Vol] 24 mg/dL High 8-23 [facility] Comment on above: Performed By: #### L D #### [address] [phone] Senior Copywriter: Rogelio Franks MD #### TROPI, BMP, PT, TP #### [address] [address] Senior Copywriter: Paddy Juares MD EKG 12 Leadon 12-10-2022 Atrial Rate 131 BPM [facility] Phone: Q-T Interval 306 ms [facility] Phone: QRS Duration 114 ms [facility] Phone: QTc Calculation (Bazett) 448 ms [facility] Phone: R Humble 21 degrees [facility] Phone: T Humble -66 degrees [facility] Phone: Ventricular Rate 129 BPM GEL[facility] [employer] Phone: Atrial fibrillation with rapid ventricular response ST & T wave abnormality, consider anterior ischemia Abnormal ECG No previous ECGs available [facility] STV MUSE Result, Unknown Provider - 12/10/2022 Atrial fibrillation with rapid ventricular response ST & T wave abnormality, consider anterior ischemia Abnormal ECG No previous ECGs available [employer] Work Phone: [facility] [employer] Work Phone: EKG Rhythm Stripon 3 [facility] MRI LUMBAR SPINE WO CONTRAST on 12-10-2022 [...] Thiago Rosenthal MD 12/10/22 Final result Normal [facility] Mild loss of vertebral body height [...] change with foraminal narrowing as described above. [facility] Phone: [facility] Phone: Radiology Study observation (narrative) [facility] Phone: MRI THORACIC SPINE WO CONTRA STon [...] Thiago Rosenthal MD 12/10/22 Final result Normal [facility] Remote compression deformity at T4, T6, T7, T8, T10, T11, L1, and L2. Prominent inferior endplate Schmorl's node at T11 with adjacent edema or inflammation. Multilevel degenerative change without significant canal stenosis or foraminal narrowing. Large right-sided pleural effusion and trace left-sided pleural effusion. [facility] EXAMINATION: MRI OF THE [...] no canal stenosis or significant foraminal narrowing. [facility] Thiago Rosenthal MD - [...] pleural effusion and trace left-sided pleural effusion. [facility] Phone: Radiology Study observation (narrative) [facility] Phone: MRI THORACIC SPINE WO CONTRA STOrdered By: Thiago Rosenthal on 12-10-2022 [facility] Phone: PTon 12-10-2022 INR Coag (PPP) [Relative time] 1.2 {INR} Normal [facility] Comment on above: Result Comment: Therapeutic Range: Moderate Anticoagulant Intensity: INR = 2.0-3.0 High Anticoagulant Intensity: INR = 2.5-3.5 Performed By: #### L D #### [employer] [address] [place] [id number] Senior Copywriter: Rogelio Franks MD #### TROPI, BMP, PT, TP #### [address] [address] Senior Copywriter: Paddy Juares MD PT Coag (PPP) [Time] 12.5 s Normal 9.4-12.6 [facility] Comment on above: Performed By: #### L D #### [address] [address] Senior Copywriter: Rogelio Franks MD #### TROPI, BMP, PT, TP #### [place] [id number] [place] [address] Senior Copywriter: Paddy Juares MD [facility] 12-10-2022 INR Coag (PPP) [Relative time] 1.2 {INR} [facility] Comment on above: Therapeutic Range: Moderate Anticoagulant Intensity: INR = 2.0-3.0 High Anticoagulant Intensity: INR = 2.5-3.5 PT Coag (PPP) [Time] 12.5 s [facility] Troponinon 12-10-2022 Troponin, High Sens 35 ng/L High 0-14 [facility] Comment on above: Result Comment: High Sensitivity Troponin values cannot be compared with other Troponin methodologies. Performed By: #### L D #### [address] [address] Senior Copywriter: Rogelio Franks MD #### TROPI, BMP, PT, TP #### [address] [address] Senior Copywriter: Paddy Juarse MD Interpretation and review of laboratory results Abnormal [facility] Troponin I.cardiac DL <= 0.01 ng/mL [Mass/Vol] 35 ng/L High 0 - 14 ng/L [facility] Comment on above: High Sensitivity Tro ponin values cannot be compared with other Troponin methodologies. [facility] XR CHEST PORTABLEon 12-11-19 XR CHEST [...] Deuce Dubois MD 12/10/22 Final result Normal [facility] Right pleural effusion with associated compressive atelectasis. Bibasilar opacities, also likely atelectatic. Infiltrate a consideration. Cardiomegaly with venous hypertension but no radiographic CHF. [facility] EXAMINATION: ONE XRAY VIEW [...] convex-left curvature thoracic spine and some DJD. [facility] Deuce Dubois MD - [...] with venous hypertension but no radiographic CHF. [facility] Phone: Radiology Study observation (narrative) [facility] Phone: XR CHEST PORTABLEOrdered By: Deuce Dubois on 12-10-2022 [facility] Phone: CT LUMBAR SPINE WO CONTRASTo n [...] Tim Bishop MD 12/09/22 Final result Normal [facility] 1. Subacute appearin g fractures involving [...] trace ascites, and at least mild anasarca. [facility] Phone: [facility] Phone: XR LUMBAR SPINE (2-3 VIEWS)o n [...] Tim Bishop MD 12/08/22 Final result Normal [facility] CT LUMBAR SPINE WO CONTRASTo n 12-08-2022 Radiology Study observation (narrative) AKI [facility] [employer] Work Phone: XR LUMBAR SPINE (2-3 VIEWS)o n 12-08-2022 1. Age-indeterminate compression fractures of the L1 and L2 superior endplates. Compression deformities at T10 and T11 are favored to be chronic. Consider further seen with MRI or CT. 2. Severe bony demineralization partially limits evaluation for fractures. 3. Moderate lumbar spine degenerative changes associated with moderate levoscoliosis. [facility] EXAMINATION: 3 XRAY VIEWS OF THE LUMBAR [...] disc disease. Mild to severe facet arthropathy. [facility] Tim Bishop MD - [...] spine degenerative changes associated with moderate levoscoliosis. [facility] Work Phone: Radiology Study observation (narrative) [facility] [employer] Work Phone: XR LUMBAR SPINE (2-3 VIEWS)O rdered By: Tim Bishop on 12-08-2022 [employer] Work Phone: Vital Signs Date Time Vital Sign Value Performing Clinician Jerzy nicole 12-14-2022 14:46-0400 Body height 162.6 cm Abdifatah Bridges III, MD Work Phone: [facility] 12-14-2022 08:15-0400 Body temperature 97.3 [degF] Abdifatah Bridges III, MD Work Phone: [facility] 12-14-2022 08:15-0400 Diastolic blood pressure 65 mm[Hg] Abdifatah Bridges III, MD Work Phone: [facility] 12-14-2022 08:15-0400 Heart rate 71 /min Abdifatah Bridges III, MD Work Phone: [facility] 12-14-2022 08:15-0400 Respiratory rate 16 /min Abdifatah Bridges III, MD Work Phone: [facility] 12-14-2022 08:15-0400 SaO2% (BldA) [Mass fraction] 98 % Abdifatah Bridges III, MD Work Phone: [facility] 12-14-2022 08:15-0400 Systolic blood pressure 110 mm[Hg] Abdifatah Bridges III, MD Work Phone: [facility] 12-14-2022 06:00-0400 Body mass index (BMI) [Ratio] 20.06 kg/m2 Abdifatah Bridges III, MD Work Phone: [facility] 12-14-2022 06:00-0400 Body weight 53 kg Abdifatah Bridges III, MD Work Phone: [facility] 12-13-2022 11:54-0400 Diastolic blood pressure 64 mm[Hg] Stv 2 [facility] 12-13-2022 11:54-0400 SaO2% (BldA) [Mass fraction] 100 % Stv 2 [facility] 12-13-2022 11:54-0400 Systolic blood pressure 112 mm[Hg] Stv 2 [facility] Encounters Encounter Date Encounter Type Care Provider Facility Start: 01-30-2023 End: 01-30-2023 ambulatory ZHEN Rondon [facility] Start: 01-24-2023 End: 01-25-2023 Emergency department patient visit [facility] Start: 12-25-2022 End: 12-26-2022 Emergency department patient visit [facility] Start: 12-13-2022 End: 12-16-[address] [facility] Start: 12-13-2022 End: 12-15-2022 Subsequent hospital visit by physician Eddy [facility] [address] Special Procedures Comment on above: Arrived Start: 12-11-2022 Telephone encounter Alaina Hurley RN [facility] Start: 12-08-2022 End: 12-14-2022 Evaluation and management of inpatient ELOY SULLIVAN [facility] Start: 12-08-2022 End: 12-14-2022 Evaluation and [...] Start: 12-11-2022 Fluoroscopy during operation Deuce Pozo [employer] DO Work Phone: Start: 12-11-2022 End: 12-11-2022 [...] Td Vaccines (2 - Td or Tdap) [facility] Start: 08-15-2032 DTaP/Tdap/Td vaccine (2 - Td or Tdap) DTaP/Tdap/Td vaccine (2 - Td or Tdap) [facility] Start: 07-12-2024 Adult BMI Screening Adult BMI Screen ing [facility] Start: 07-10-2024 Tobacco Screening Tobacco Screening [facility] Start: 11-14-2023 Depression Screening Depression Scre ening [facility] Start: 04-12-2023 Influenza vaccination Influenza Vacc ine [facility] Start: 03-12-2023 Influenza vaccination Flu vacc ine (Season Ended) [facility] Start: 12-10-2022 Annual Wellness Visi t (AWV) Annual Wellness Visit (AWV) [facility] Start: 2001 Fall Risk Screening Fall Risk Screen ing [facility] Start: 1986 Administration of varicella zoster vaccine Zoster (Shingles) Vaccine (1 of 2) [facility] Start: 1986 Shingles vaccine (1 of 2) [place] gles vaccine (1 of 2) [facility] Start: 1948 Depression Screen Depression Screen [facility] Start: 1942 Pneumococcal 65+ yea rs Vaccine (1 - PCV) Pneumococcal 65+ years Vaccine (1 - PCV) [facility] Start: 1936 COVID-19 Vaccine (#1) COVID-19 Vacci ne (#1) [facility] Start: 1936 Medicare Annual Well ness Visit Medicare Annual Wellness Visit [facility] Start: 1936 Tobacco Counseling Tobacco Counselin g [facility] End: 12-13-2022 Culture, Body Fluid Culture, Body Fluid Microbiology Routine One Time for 1 Occurrences starting 12/13/2022 until 12/13/2022 [facility] Phone: Comment on above: One Time for 1 Occur rences starting 12/13/2022 until 12/13/2022 End: 12-13-2022 Cytology, Non-Asphalt Distributor Tender Cytology, Non-Asphalt Distributor Tender Lab Routine One Time for 1 Occurrences starting 12/13/2022 until 12/13/2022 [facility] Phone: Comment on above: One Time for 1 Occur rences starting 12/13/2022 until 12/13/2022 End: 12-13-2022 Glucose, Body Fluid Glucose, Body Fluid Lab Routine One Time for 1 Occurrences starting 12/13/2022 until 12/13/2022 [facility] Phone: Comment on above: One Time for 1 Occur rences starting 12/13/2022 until 12/13/2022 End: 12-11-2022 INITIATE PACU OXYGEN THERAPY PROTOCOL Initiate PACU Oxygen Therapy Protocol Respiratory Care Routine Continuous until discontinued starting 12/11/2022 [facility] Phone: Comment on above: Continuous until dis continued starting 12/11/2022 Intermittent pulse oximetry Pulse Oximetry Spot Check Respiratory Care Routine As Needed until discontinued starting 12/09/2022 [facility] Phone: Comment on above: As Needed until disc ontinued starting 12/09/2022 End: 12-13-2022 Lactate Dehydrogenase, Body Fluid Lactate Dehydrogenase, Body Fluid Lab Routine One Time for 1 Occurrences starting 12/13/2022 until 12/13/2022 [facility] Phone: Comment on above: One Time for 1 Occur rences starting 12/13/2022 until 12/13/2022 Nasal Cannula Oxygen Nasal Cannu la Oxygen Respiratory Care Routine Daily until discontinued starting 12/11/2022 [facility] Phone: Comment on above: Daily until disconti nued starting 12/11/2022 Nasal Cannula Oxygen Nasal Cannu la Oxygen Respiratory Care Routine Daily until discontinued starting 12/12/2022 [facility] Phone: Comment on above: Daily until disconti nued starting 12/12/2022 Oxygen therapy [Mini mum Data Set] Initiate Oxygen Therapy Protocol Respiratory Care Routine As Needed until discontinued starting 12/09/2022 [facility] Phone: Comment on above: As Needed until disc ontinued starting 12/09/2022 Oxygen therapy [Mini mum Data Set] Initiate Oxygen Therapy Protocol Respiratory Care Routine As Needed until discontinued starting 12/11/2022 [facility] Phone: Comment on above: As Needed until disc ontinued starting 12/11/2022 End: 12-13-2022 pH, Body Fluid pH, Body Fluid Lab Routine One Time for 1 Occurrences starting 12/13/2022 until 12/13/2022 [facility] Phone: Comment on above: One Time for 1 Occur rences starting 12/13/2022 until 12/13/2022 End: 12-11-2022 , urine POCT , urine POCT Point of Care Testing Routine One Time for 1 Occurrences starting 12/11/2022 until 12/11/2022 [facility] Phone: Comment on above: One Time for 1 Occur rences starting 12/11/2022 until 12/11/2022 End: 12-13-2022 Protein [Mass/volume] in Serum or Plasma Protein, Total Lab Routine One Time for 1 Occurrences starting 12/13/2022 until 12/13/2022 [facility] Phone: Comment on above: One Time for 1 Occur rences starting 12/13/2022 until 12/13/2022 Immunizations Immunization Date Immunization Notes Care Provider Fa kranthi 08-15-2022 tetanus toxoid, redu rakel diphtheria toxoid, and acellular pertussis vaccine, adsorbed Alaina Hurley RN [facility] Payers Date Payer Category Payer Medicare [id number] 2001 Medicare MEDICARE MEDICAR E PART A & B [id number] 2001-Present [phone] [address] [place] [address] [id number] 1935 Unknown [id number] 1936 Unknown [id number] 1936 Unknown [id number] 1936 Unknown [id number] 1936 Unknown [id number] Social History Date Type Detail Facility Start: 11-07-2022 End: 12-09-2022 Tobacco smoking status MSIS Smokes tobacco daily [facility] Phone: History of tobacco use Cigarette Smoker B ON [employer] Phone: Start: 09-21-2020 End: 12-09-2022 Cigarettes smoked current (pack per day) - Reported 1 [facility] Work Phone: Start: 11-07-2022 End: 12-09-2022 Tobacco use and exposure Smokeless tobacco non-user [facility] Phone: Start: 1935 Sex Assigned At Not on file AKI [facility] [employer] Work Phone: Start: 11-13-2022 Alcohol intake Lifetime non-drinker (finding) [facility] Start: 07-31-2020 End: 09-21-2020 Alcohol Use Disorder Identification Test - Consumption [AUDIT-C] [facility] Work Phone: How often to you hav e a drink containing alcohol? Never [facility] Work Phone: Average Number of Drinks Not on file [employer] Start: 1935 Sex Assigned At Female [facility] Start: 07-08-2023 Gender identity Identifies as female gender (finding) [facility] Start: 07-08-2023 Sexual orientation Heterosexual (finding) [facility] Start: 10-14-2022 End: 11-13-2022 Exposure to SARS-CoV-2 (event) Not sure [facility] Medical Equipment Procedure Code Equipment Code Equipment Origin al Text Equipment Identifier Dates Cement Bne Hi Vi sc Radiopaque Kyphon Hv-R - [id number] Start: 12-11-2022 Nail Im 170mm 9m m 125d Shrt Cnn Tfn-Adv Lat Rlf Cut Ti Cocr - [id number] Start: 07-10-2023 Blade Im Nl Au 9 0mm 10.35mm Tfn-Adv Hlcl Fem Prox Ti Niobium - [id number] Start: 07-10-2023 Screw Bn 34mm 5m m 4.3mm St Lck Strdr Blnt Tip Ti T25 Ft Strl - [id number] Start: 07-10-2023 Goals Date Patient Goal [...] Primary Emergency Contact: Klarissa Moore Relation: Child [employer] Sales Manager needed? No Secondary Emergency Contact: asaddenilsonjay Relation: Child Past Surgical History: Past Surgical History: Procedure Laterality Date KYPHOSIS SURGERY 12/11/2022 SPINE SURGERY N/A 12/11/2022 T10, T11, L3 KYPHOPLASTY WITH KYPHON performed by Deuce Hollis DO at [facility] OR Immunization History: There is no immunization history on file for this patient. Active Problems: Patient Active Problem List Diagnosis Code Fracture of lumbar spine without cord injury, closed, initial encounter ([facility]) S32.009A Pleural effusion, right J90 Atrial fibrillation with rapid ventricular response ([facility]) I48.91 Anasarca R60.1 Isolation/Infection: Isolation No Isolation [...] Assisted Dressing Assisted Toileting Assisted Feeding Independent Union Carpenter Independent Med Delivery whole Wound Care Documentation [...] 11 Discharging to Facility/ Agency Name: Facility: [facility] Address: [address] [place] [address] Torpedo Shooter/Rental Representative signature: PHYSICIAN SECTION Prognosis: Fair Condition at Discharge: Stable Rehab Potential (if transferring to Rehab): Fair Recommended Labs or Other Treatments After Discharge: PT/OT; follow-up with orthopedic surgery and pulmonology as scheduled. Physician Certification: I certify the above information and transfer of Rebekah Moore is necessary for the continuing treatment of the diagnosis listed and that she requires Alf Facility for greater 30 days. Update Admission H&P: No change in H&P PHYSICIAN SIGNATURE: documented in this encounter [employer] Phone: 12-14-2022 Hospital course Narrative Images from the original note were not included. [facility] Office: [phone] Aditya Zapata DO, Teo Espitia DO, Haroon [...] Gillespie DO, Augustus Pak MD, No Walton, STUDENT FINANCIAL SERVICES COUNSELOR, Kendra Ramirez, STUDENT FINANCIAL SERVICES COUNSELOR, Aviva Barnett, STUDENT FINANCIAL SERVICES COUNSELOR, Hamzah Harmtan, STUDENT FINANCIAL SERVICES COUNSELOR, Yudith Shell, KIRTI, Karissa Nguyen, STUDENT FINANCIAL SERVICES COUNSELOR, Julissa Landis, STUDENT FINANCIAL SERVICES COUNSELOR, Genet Vega, STUDENT FINANCIAL SERVICES COUNSELOR, Keri Dietz, STUDENT FINANCIAL SERVICES COUNSELOR, Shirley Helton, STUDENT FINANCIAL SERVICES COUNSELOR, Deuce Guthrie PA-C, Anabelle Mccoy, NITRATE OPERATOR, Aparna Bryant, STUDENT FINANCIAL SERVICES COUNSELOR, Rebekah Duran, STUDENT FINANCIAL SERVICES COUNSELOR [facility] IN-PATIENT SERVICE [facility] Discharge Summary Patient ID: Rebekah Moore : 1935 ACCOUNT: [id number] Patient's PCP: Hawa Garzon Admit Date: 12/08/2022 [...] RDW, PLT, MPV, SEDRATE, CRP, INR, DDIMER, [id number], LABABSO in the last 72 hours. Invalid input(s): PT Chemistry:No results for input(s): NA, K, CL, CO2, GLUCOSE, BUN, CREATININE, MG, ANIONGAP, LABGLOM, GFRAA, CALCIUM, CAION, PHOS, PSA, PROBNP, TROPHS, CKTOTAL, CKMB, CKMBINDEX, MYOGLOBIN, DIGOXIN, LACTACIDWB in the last 72 hours.No results for input(s): PROT, LABALBU, LABA1C, C5IHKHX, I2GIZOI, FT4, TSH, AST, ALT, LDH, GGT, ALKPHOS, LABGGT, BILITOT, BILIDIR, AMMONIA, AMYLASE, LIPASE, LACTATE, CHOL, HDL, LDLCHOLESTEROL, CHOLHDLRATIO, TRIG, VLDL, [id number], PHENYTOIN, PHENYF, URICACID, POCGLU in the last 72 hours. ABG:No results found for: POCPH, PHART, PH, POCPCO2, ZJO8SDX, PCO2, POCPO2, PO2ART, PO2, POCHCO3, DIL9JJU, HCO3, NBEA, PBEA, BEART, BE, THGBART, THB, DFH1GKD, UETF4DPF, M9ZIHFVC, O2SAT, FIO2 No results found for: SPECIAL [...] of discharge. Discharge plan: Disposition: To a non-[facility] facility Physician Follow Up: [place] [address] [id number] Schedule an appointment as soon as possible for a visit in 1 week(s) Hospital follow-up; right-sided pleural effusion Deuce Pozo Telma, DO [address] [place] [address] Schedule an appointment as soon as [...] Your Medications These medications were sent to [facility] [address] [place] [id number] - [phone] - F [phone] [id number] [facility] [address] midodrine 10 MG tablet Time spent on discharge is 20 mins in patient examination, evaluation, counseling as well as medication reconciliation, prescriptions for required medications, discharge plan and follow up. Electronically signed by Thomas Chang MD 12/14/2022 9:[address] Hawa Garzon for the opportunity to be involved in this patient's care. documented in this encounter [employer] Phone: 12-13-2022 Note PROCEDURE: ULTRASOUNDGUIDED RIGHT THORACENTESIS [...] chest with one percent lidocaine. A 5 Mosotho Yueh needle was advanced into the pleural [...] by: Nilo Rawls MD 12/13/22 Final result [facility] 12-13-2022 History of Present illness Narrative [...] Date 12/13/22 0000 - 12/13/22 2359 Shift [id number] 0700-2982 6070-9312 24 Hour Total INTAKE P.O.(mL/kg/hr) 50(0.1) 50 I.V.(mL/kg) 10(0.2) 10(0.2) Shift Total(mL/kg) 50(0.9) 10(0.2) 60(1.1) OUTPUT Urine(mL/kg/hr) 320(0.8) 1150 1470 Shift Total(mL/kg) 320(6) 1150(21.7) 1470(27.8) Weight (kg) 52.9 52.9 52.9 52.9 LABORATORY RESULTS: BLOOD GASES: No results for input(s): POCPH, POCPCO2, POCPO2, POCHCO3, PJUO5DXS in the last 72 hours. COMPLETE BLOOD [...] without cord injury, closed, initial encounter ([facility]) Pleural effusion, right Atrial fibrillation with rapid ventricular response ([facility]) Anasarca ASSESSMENT: Right pleural effusion, s/p thoracentesis [...] from the original note were not included. [facility] Office: [phone] Aditya Zapata DO, Teo Espitia DO, Haroon [...] Walton CNP, Kendra Ramirez CNP, Aviva Barnett STUDENT FINANCIAL SERVICES COUNSELOR, Hamzah Hartman, STUDENT FINANCIAL SERVICES COUNSELOR, Yudith Shell, KIRTI, Karissa Nguyen, STUDENT FINANCIAL SERVICES COUNSELOR, Julissa Landis, STUDENT FINANCIAL SERVICES COUNSELOR, Genet Vega STUDENT FINANCIAL SERVICES COUNSELOR, Keri Dietz, STUDENT FINANCIAL SERVICES COUNSELOR, Shirley Helton STUDENT FINANCIAL SERVICES COUNSELOR, Deuce Guthrie PAYuliaC, Anabelle Mccoy, NITRATE OPERATOR, Aparna Bryant, STUDENT FINANCIAL SERVICES COUNSELOR, Rebekah Duran, STUDENT FINANCIAL SERVICES COUNSELOR [facility] IN-PATIENT SERVICE [facility] Progress Note 12/13/2022 10:19 AM Name: Rebekah Moore Acct: [id number] Room: [address] [place] [address] Day: 4 Admit Date: 12/08/2022 8:59 PM [...] RDW, PLT, MPV, SEDRATE, CRP, INR, DDIMER, PB1OMGME, LABABSO in the last 72 hours. Invalid input(s): PT Chemistry: No results for input(s): NA, K, CL, CO2, GLUCOSE, BUN, CREATININE, MG, ANIONGAP, LABGLOM, GFRAA, CALCIUM, CAION, PHOS, PSA, PROBNP, TROPHS, CKTOTAL, CKMB, CKMBINDEX, MYOGLOBIN, DIGOXIN, LACTACIDWB in the last 72 hours. No results for input(s): PROT, LABALBU, LABA1C, I2IYVLL, M2KSDDU, FT4, TSH, AST, ALT, LDH, GGT, ALKPHOS, LABGGT, BILITOT, BILIDIR, AMMONIA, AMYLASE, LIPASE, LACTATE, CHOL, HDL, LDLCHOLESTEROL, CHOLHDLRATIO, TRIG, VLDL, KCX61PT, PHENYTOIN, PHENYF, URICACID, POCGLU in the last 72 hours. ABG:No results found for: POCPH, PHART, PH, POCPCO2, IET5BWP, PCO2, POCPO2, PO2ART, PO2, POCHCO3, UVL5UFB, HCO3, NBEA, PBEA, BEART, BE, THGBART, THB, WTJ3TYV, NCAX3YWA, V7FULEVZ, O2SAT, FIO2 No results found for: SPECIAL [...] without cord injury, closed, initial encounter ([facility]) 12/09/2022 Yes Pleural effusion, right 12/09/2022 Yes Atrial fibrillation with rapid ventricular response ([facility]) 12/09/2022 Yes Anasarca 12/09/2022 Yes Plan: T11 [...] 875 [Urine:875] Date 12/12/22 - 12/12/229 Shift [id number] 4970-1424 4755-8093 24 Hour Total INTAKE P.O.(mL/kg/hr) 150(0.3) 150 Shift Total(mL/kg) 150(2.8) 150(2.8) OUTPUT Urine(mL/kg/hr) 525(1.2) 525 Shift Total(mL/kg) 525(9.7) 525(9.7) Weight (kg) 53.9 53.9 53.9 53.9 LABORATORY RESULTS: BLOOD GASES: No results for input(s): POCPH, POCPCO2, POCPO2, POCHCO3, FOIV5EIA in the last 72 hours. COMPLETE BLOOD [...] from the original note were not included. [facility] Office: [phone] Aditya Zapata DO, Teo Espitia DO, Haroon [...] [place], Aparna Bryant CNP, Rebekah Duran, CORNELIUS [facility] IN-PATIENT SERVICE [facility] Progress Note 12/12/2022 1:25 PM Name: Rebekah Moore Acct: [id number] Room: [address] [place] [address] Day: 3 Admit Date: 12/08/2022 8:59 PM [...] No results for input(s): PROT, LABALBU, LABA1C, Z1ZKYIV, G0RORNW, FT4, TSH, AST, ALT, LDH, GGT, ALKPHOS, LABGGT, BILITOT, BILIDIR, AMMONIA, AMYLASE, LIPASE, LACTATE, CHOL, HDL, LDLCHOLESTEROL, CHOLHDLRATIO, TRIG, VLDL, KNA99LO, PHENYTOIN, PHENYF, URICACID, POCGLU in the last 72 hours. ABG:No results found for: POCPH, PHART, PH, POCPCO2, DGU1XHL, PCO2, POCPO2, PO2ART, PO2, POCHCO3, MWK3ZFO, HCO3, NBEA, PBEA, BEART, BE, THGBART, THB, RNZ9IZY, RFNT0MUI, X7TWKPVL, O2SAT, FIO2 No results found for: SPECIAL [...] without cord injury, closed, initial encounter ([facility]) 12/09/2022 Yes Pleural effusion, right 12/09/2022 Yes Atrial fibrillation with rapid ventricular response ([facility]) 12/09/2022 Yes Anasarca 12/09/2022 Yes Plan: T11 [...] MD 12/12/2022 1:25 PM Physical Therapy Facility/Department: [facility] ICU Physical Therapy Initial Assessment Name: [...] (coronary artery disease), Chronic atrial fibrillation ([facility]), Chronic CHF (congestive heart failure) ([facility]), Compression fracture of body of thoracic vertebra ([facility]), Moderate malnutrition ([facility]), Osteoporosis, and PAD (peripheral artery disease) ([facility]). Past Surgical History: has a past surgical [...] reports wall/furniture walking) Transfer Assistance: Independent Active Clinical Business Manager: Yes Patient's Clinical Business Manager Info: Daughter Mode of Transportation: Car Occupation: [...] Minutes Kristina Franks PT Occupational Therapy Facility/Department: [facility] ICU Occupational Therapy Initial Assessment [...] (coronary artery disease), Chronic atrial fibrillation ([facility]), Chronic CHF (congestive heart failure) ([facility]), Compression fracture of body of thoracic vertebra ([facility]), Moderate malnutrition (HCC), Osteoporosis, and PAD (peripheral artery disease) ([facility]). Past Surgical History: has a past surgical [...] reports wall/furniture walking) Transfer Assistance: Independent Active Clinical Business Manager: Yes Patient's Clinical Business Manager Info: Daughter Mode of Transportation: Car Occupation: [...] from the original note were not included. [facility] Office: [phone] Aditya Zapata DO, Teo Espitia DO, Haroon [...] Gillespie DO, Augustus Pak MD, No Walton, STUDENT FINANCIAL SERVICES COUNSELOR, Kendra Ramirez, CORNELIUS, Aviva Barnett, CORNELIUS, Hamzah Hartman, CORNELIUS, Yudith Shell DNP, Karissa Nguyen, CORNELIUS, Julissa Landis, CORNELIUS, Genet Vega, STUDENT FINANCIAL SERVICES COUNSELOR, Keri Dietz, STUDENT FINANCIAL SERVICES COUNSELOR, Shirley Helton, STUDENT FINANCIAL SERVICES COUNSELOR, Deuce Guthrie PA-C, Anabelle Mccoy, NITRATE OPERATOR, Aparna Bryant, CORNELIUS, Rebekah Duran, CORNELIUS [facility] IN-PATIENT SERVICE [facility] Progress Note 12/11/2022 1:46 PM Name: Rebekah Moore Acct: [id number] Room: [facility] Day: 2 Admit Date: 12/08/2022 8:59 PM [...] No results for input(s): PROT, LABALBU, LABA1C, T4CFACZ, Z7RMCMG, FT4, TSH, AST, ALT, LDH, GGT, ALKPHOS, LABGGT, BILITOT, BILIDIR, AMMONIA, AMYLASE, LIPASE, LACTATE, CHOL, HDL, LDLCHOLESTEROL, CHOLHDLRATIO, TRIG, VLDL, PLI43QY, PHENYTOIN, PHENYF, URICACID, POCGLU in the last 72 hours. ABG:No results found for: POCPH, PHART, PH, POCPCO2, KII1XXB, PCO2, POCPO2, PO2ART, PO2, POCHCO3, QCV0ICV, HCO3, NBEA, PBEA, BEART, BE, THGBART, THB, FNY4VLX, WIGY6UCY, X7ADZCXG, O2SAT, FIO2 No results found for: SPECIAL [...] without cord injury, closed, initial encounter ([facility]) 12/09/2022 Yes Pleural effusion, right 12/09/2022 Yes Atrial fibrillation with rapid ventricular response ([facility]) 12/09/2022 Yes Anasarca 12/09/2022 Yes Plan: T11 [...] at which time she had an acute GA involving the right coronary artery with subsequent [...] unchanged from a previous study completed at [facility] on September 26, 2021. Electrocardiogram shows atrial [...] be obtained and operative site marked -Ancef personal injury paralegal to OR -IM and pulmonology cleared; Echo [...] original note were not included. Occupational Therapy [facility] Occupational Therapy Not Seen Note [...] due to: Surgery/Procedure: hypoplasty today at noon Nipping Machine Operator spoke with Sury on med surg unit, informed her that pt's surgery has been rescheduled for noon on 12/11/2022. Also informed caller that surgeon wants patient to eat today & NPO at midnight. Caller verbalized an understanding. Nipping Machine Operator spoke with RASHIDA Armijo, for report. Nipping Machine Operator informed that pt has an active order [...] from the original note were not included. [facility] Office: [phone] Aditya Zapata DO, Teo Espitia DO, Haroon [...] Gillespie DO, Augustus Pak MD, No Walton, STUDENT FINANCIAL SERVICES COUNSELOR, Kendra Ramirez, STUDENT FINANCIAL SERVICES COUNSELOR, Aviva Barnett, STUDENT FINANCIAL SERVICES COUNSELOR, Hamzah Hartman, STUDENT FINANCIAL SERVICES COUNSELOR, Yudith Shell, KIRTI, Karissa Nguyen, STUDENT FINANCIAL SERVICES COUNSELOR, Julissa Landis, STUDENT FINANCIAL SERVICES COUNSELOR, Genet Vega STUDENT FINANCIAL SERVICES COUNSELOR, Keri Dietz, STUDENT FINANCIAL SERVICES COUNSELOR, Shirley Helton, STUDENT FINANCIAL SERVICES COUNSELOR, Deuce Guthrie PA-C, Anabelle Mccoy, NITRATE OPERATOR, Aparna Bryant, STUDENT FINANCIAL SERVICES COUNSELOR, Rebekah Duran, STUDENT FINANCIAL SERVICES COUNSELOR [facility] IN-PATIENT SERVICE [facility] Progress Note 12/10/2022 11:07 AM Name: Rebekah Moore Acct: [id number] Room: [address] [place] [address] Day: 1 Admit Date: 12/08/2022 8:59 PM [...] No results for input(s): PROT, LABALBU, LABA1C, Q5PXREL, W3VAYLG, FT4, TSH, AST, ALT, LDH, GGT, ALKPHOS, LABGGT, BILITOT, BILIDIR, AMMONIA, AMYLASE, LIPASE, LACTATE, CHOL, HDL, LDLCHOLESTEROL, CHOLHDLRATIO, TRIG, VLDL, RTR51LW, PHENYTOIN, PHENYF, URICACID, POCGLU in the last 72 hours. ABG:No results found for: POCPH, PHART, PH, POCPCO2, VUJ6CWO, PCO2, POCPO2, PO2ART, PO2, POCHCO3, ZFT1TJR, HCO3, NBEA, PBEA, BEART, BE, THGBART, THB, FYD1BFQ, DNVX4BPV, T7KIAEDR, O2SAT, FIO2 No results found for: SPECIAL [...] without cord injury, closed, initial encounter ([facility]) 12/09/2022 Yes Pleural effusion, right 12/09/2022 Yes Atrial fibrillation with rapid ventricular response ([facility]) 12/09/2022 Yes Anasarca 12/09/2022 Yes Plan: T11 [...] original note were not included. Occupational Therapy [facility] Occupational Therapy Not Seen Note DATE: 12/10/2022 NAME: Rebekah Moore : 1935 Patient not seen this date for Occupational Therapy due to: Other: Awaiting thoracic/lumbar MRI and orthosx POC following MRI results Next Scheduled Treatment: Will check back PM as able or 12/11/2022 documented in this encounter [facility] [employer] Work Phone: 12-13-2022 Note PROCEDURE: ULTRASOUNDGUIDED RIGHT [...] chest with one percent lidocaine. A 5 Mosotho Yueh needle was advanced into the pleural [...] chest with one percent lidocaine. A 5 Mosotho Yueh needle was advanced into the pleural [...] 800 mL clear yellow fluid was removed. [facility] 12-13-2022 History of Present illness Narrative Pt arrives to room with EMS for rt therapeutic thoracentesis JR Pa and CM RT to bedside Site prepped and draped Access obtained on right 800ml of clear dark yellow fluid removed Tolerated well Return to [facility] with transport documented in this encounter [facility] Phone: 12-11-2022 Miscellaneous Notes Contact Type: General Care Coordination Activity Patient was scheduled for f/u with PCP today. This was cancelled, as patient is currently admitted to [facility] for fall and lumbar compression fracture. [facility]22 Telephone encounter Note Contact Type: General Care Coordination Activity Patient was scheduled for f/u with PCP today. This was cancelled, as patient is currently admitted to [facility] for fall and lumbar compression fracture. [facility] Evaluation note Diagnosis Fracture of lumbar spine without cord injury, closed, initial encounter (HCC)- Primary Lumbar compression fracture, sequela Pleural effusion, right Unspecified pleural effusion Atrial fibrillation with rapid ventricular response (HCC) Atrial fibrillation Anasarca Edema documented in this encounter [facility] Phone: InstructionsNot on filedocumented in this encounter [facility] Advance Directives No Advanced Directives Records FoundLatest Code Status on File Code Status Date Activated Date Inactivated Comments Full Code 12/09/2022 6:00 AM Latest Code Status on File Code Status Date Activated Date Inactivated Comments Full Code 12/09/2022 6:00 AM 12/14/2022 6:44 PM Documents on File Type Date Recorded 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
Care Teams (unrecognized sec tion and content) Cw Operator Relationship Specialty Start Date End Date Hawa Garzon [address] [place] [id number] PCP - General Glue Drier Operator 12/11/22 Cw Operator Relationship Specialty Start Date End Date Hawa Garzon [address] [place] [address] PCP - General Glue Drier Operator 12/11/22 Cw Operator Relationship Specialty Start Date End Date Hawa Garzon APRN-STUDENT FINANCIAL SERVICES COUNSELOR [address] [place] [address] PCP - General Family Medicine 05/30/21 INFORMATION SOURCE (unrecogn ized section and content) DATE CREATED AUTHOR 01/22/2023 [facility] DATE CREATED AUTHOR AUTHOR'S ORGANIZ ATION 02/12/2023 [facility] DATE CREATED AUTHOR AUTHOR'S ORGANIZ ATION 11/17/2023 [facility] FOR RECORDS PERTAINING TO PATIENTS [...] BE BASED ON THE PRIMARY CLINICAL RECORDS. [facility], [facility]. provides no warranty or guarantee of the accuracy or completeness of information in this document.
[2024-05-17 09:53] LABS: INR 2.06; Prothrombin Time 20.3 sec (9.0-11.6)
--- OUTSIDE RECORDS SUMMARY | 2024-12-13 20:00 | XMS_ITS | Continuity of Care Document ---
Author Organization [facility] Address [address] [place] [address] Care Team Providers Care Director Of Housing And Energy Services Name Role Phone Hamzah Martinez DPM Unavailable Unavailable Allergies, Adverse Reactions, Alerts Substance Reaction Status Criticality No Known Allergies Active No Inform ation Medications Medication Instructions Dosage Effective Dates (start - stop) Status Comments metoprolol succinate ER 25 mg tablet,extended release 24 hr - Active oxycodone 5 mg tablet - Acti ve warfarin 3 mg tablet - Activ e warfarin 2 mg tablet - Activ e Problems Condition Type Effective Dates (start - stop) Clini keven Status Comments No Known Problems Procedures Procedure Date DEBRIDE NAIL 1- Trim Dystrophic nail(s) DEBRIDE NAIL 1-5 NURSING FAC CARE SUBSEQ FIT SPECTACLES BIFOCAL VISION SVCS FRAMES PURCHASES LENS SPHCYL BIFOCAL 4.00D/.1 EYE EXAM WITH PHOTOS COMPRE OPH EXAM NEW PT 1/> REMOVE IMPACTED EAR WAX DEBRIDE NAIL 1-5 NURSING FAC CARE SUBSEQ UNLISTED ORL SERVICE/PX DEBRIDE NAIL 1-5 Advance Directives Directive Yes / No Effective Date File Name No Information Encounters Encounter Description Practice Location Reason(s) For Visit Diagnoses Date Provider Providers Copied on Encounter [facility], [address], [place], [place], [id number] , [facility] Onychogryphosis Other specified peripheral vascular diseasesNail dystrophy 5 Juan Ordone[place] , [place]. Referring Provider: Marshal Camarena NURSING FAC CARE SUBSEQ [facility] [address], [place], [place], [id number] , [facility] Onychogryphosis Other specified peripheral vascular diseases 5 Juan Ordonez , [place]. [facility] [address], [place], [place], [id number] , [facility] Presbyopia 5 Luc Espinosa. [address] [facility], [address], [place], [place], [id number], . tel:[phone] [facility] [address], [place], [place], [id number] , [facility] Blurry vision (chief complaint) Primary open-angle glaucoma, bilateral, indeterminate stage 5 Luc Espinosa. [address] [facility], [address], [place], [place], [id number], . tel:[phone] Referring Provider: Marshal Addison. [facility] [address], [place], [place], [id number] , [facility] impacted cerumen, ear care exam (chief complaint) Impacted cerumen, right ear 4 Evette Tay. [address] [facility], [place], [place], [id number], . tel:[phone] Referring Provider: Marshal Camarena NURSING FAC CARE SUBSEQ [facility] [address], [place], [place], [id number] , [facility] Other specified peripheral vascular diseasesOnychog ryphosis 4 Juan Ordonez , [place]. [facility] [address], [place], [place], [id number] , [facility] Impacted cerumen, bilateralUnspec ified hearing loss, bilateral Sep- 4 America Adams , [place]. Referring Provider: Marshal Addison. [address] [place] [address] [address], [place], [place], [id number] , [facility] Onychogryphosis Other specified peripheral vascular diseases 4 Juan [place]. [place]. [address] [place] [address], [address], [place], [place], [id number] , [facility] No Information 4 Juan [place]. [place]. Family History Family Member Type Diagnosis Age At Onset No Information Payers Payer name Insurance type Covered constitution party ID Authoriza tion(s) [place] [id number] [place] [id number] Social History Type Description Quantity Date Captured Comments Alcohol Use Details Unknown Caffeine Use Details Unknown Tobacco Use Status No Information Smoking Status No Information Sex Female Chief Complaint And Reason For Visit No Information Reason For Referral Reason For Referral No Information Plan Of Treatment Date Type Action Status Goal Influenza vaccine. Due on due Goal Td vaccine. Due on due Goal Pneumococcal vaccine. Due on due Goal Tobacco screening. Due on due Goal Depression screening. Due on due Goal Unhealthy drug u se screening. Due on due Goal DEXA scan. Due on due Goal Zoster vaccine (). Due on due Goal Tdap. Due on due Goal Influenza vaccine. Due on due Goal Pneumococcal vaccine. Due on due Goal Td vaccine. Due on due Goal Depression screening. Due on due Goal Tdap. Due on due Goal DEXA scan. Due on due Goal Zoster vaccine (). Due on due Goal Unhealthy drug u se screening. Due on due Goal Influenza vaccine. Due on due Goal Pneumococcal vaccine. Due on due Goal Td vaccine. Due on due Goal Tdap. Due on due Goal DEXA scan. Due on due Goal Zoster vaccine (). Due on due Goal Unhealthy drug u se screening. Due on due Goal Depression screening. Due on due Goal Unhealthy drug u se screening. Due on due Goal Depression screening. Due on due Goal Td vaccine. Due on due Goal Pneumococcal vaccine. Due on due Goal DEXA scan. Due on due Goal Tdap. Due on due Goal Influenza vaccine. Due on due Goal Zoster vaccine (). Due on due Goal Unhealthy drug u se screening. Due on due Goal Depression screening. Due on due Goal Td vaccine. Due on due Goal Zoster vaccine (1st). Due on due Goal DEXA scan. Due on due Goal Influenza vaccine. Due on due Goal Pneumococcal vaccine. Due on due Goal Tdap. Due on due Goal Unhealthy drug u se screening. Due on due Goal Tdap. Due on due Goal Pneumococcal vaccine. Due on due Goal DEXA scan. Due on due Goal Depression screening. Due on due Goal Zoster vaccine (). Due on due Goal Td vaccine. Due on due Goal Influenza vaccine. Due on due Goal Tdap. Due on due Goal DEXA scan. Due on due Goal Depression screening. Due on due Goal Pneumococcal vaccine. Due on due Goal Influenza vaccine. Due on due Goal Unhealthy drug u se screening. Due on due Goal Zoster vaccine (). Due on due Goal Td vaccine. Due on due Goal Tdap. Due on due Goal DEXA scan. Due on due Goal Depression screening. Due on due Goal Pneumococcal vaccine. Due on due Goal Influenza vaccine. Due on due Goal Unhealthy drug u se screening. Due on due Aug-19-2024 Goal Zoster vaccine (1st). Due on due Goal Td vaccine. Due on 24 due Appointment Rebekah Lei BOOKED Appointment Rebekah Lei BOOKED Patient Education Earwax Blockage: Care I nstructions completed History Of Present Illness Encounter Date Complaint History Of Prese nt Illness Blurry vision The 89 year old patient presents for evaluation of Blurry vision in the right eye and left eye. Moderate, constant, > 6 months Functional Status Date Functional Assessmen t No Information Instructions Date Instruction Additional Infor mation All of the thickened or mycotic nails described were debrided to prevent pain and infection. The nails were debrided using a rotary tool and nail nipper. Related to Onychogryphosis All dystrophic nails were reduced in length as needed to prevent pain and other symptoms. Related to Nail dystrophy All of the thickened or mycotic nails described were debrided to prevent pain and infection. The nails were debrided using a rotary tool and nail nipper. Related to Onychogryphosis Follow up - Return i n 3-6 months for IOP / gonio / pachymetry. 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 Begin latanoprost qhs OU to lower pressure. monitor for progression. visual field seems intact. Related to Primary open-angle glaucoma, bilateral, indeterminate stage Performed Cerumen Re moval as per protocol, right ear cleared. Follow up in 6-9 months for reevaluation for chronic cerumen impaction. Related to Impacted cerumen, right ear All of the thickened or mycotic nails described were debrided to prevent pain and infection. The nails were debrided using a rotary tool and nail nipper. Related to Onychogryphosis Refer to [facility] for ceru men removal. HT after ears clear Related to Impacted cerumen, bilateral All of the thickened or mycotic nails described were debrided to prevent pain and infection. The nails were debrided using a rotary tool and nail nipper. Related to Onychogryphosis Assessments Type Assessment Date assessment Onychogryphosis assessment Other specified peripheral vascu lar diseases assessment Nail dystrophy Patient Care Teams Name Effective Dates (start - stop) Status Members No Information
--- OUTSIDE RECORDS SUMMARY | 2024-12-13 20:00 | XMS_ITS | Continuity of Care Document ---
Author Organization [facility] Address [address] [place] [address] Care Team Providers Care African Studies Professor Name Role Phone Hamzah Martienz DPM Unavailable Unavailable Allergies, Adverse Reactions, Alerts [...] Provider Providers Copied on Encounter [facility], [address], [place], [place], [id number] , [facility] Onychogryphosis Other specified peripheral vascular diseasesNail dystrophy 5 Juan [place] , [place]. Referring Provider: Marshal Camarena NURSING FAC CARE SUBSEQ [facility] [address], [place], [place], [id number] , [facility] Onychogryphosis Other specified peripheral vascular diseases 5 Juan Ordonez , [place]. [facility] [address], [place], [place], [id number] , [facility] Presbyopia 5 Luc Espinosa. [address] [facility] [address], [place], [place], [id number], . tel:[phone] [facility] [address], [place], [place], [id number] , [facility] Blurry vision (chief complaint) Primary open-angle glaucoma, bilateral, indeterminate stage 5 Luc Espinosa. [address] [facility] [address], [place], [place], [id number], . tel:[phone] Referring Provider: Marshal Addison. [facility] [address], [place], [place], [id number] , [facility] impacted cerumen, ear care exam (chief complaint) Impacted cerumen, right ear 4 Evette Tay. [address] [facility] [address], [place], [place], [id number], . tel:[phone] Referring Provider: Marshal Camarena NURSING FAC CARE SUBSEQ [facility] [address], [place], [place], [id number] , [facility] Other specified peripheral vascular diseasesOnychog ryphosis 4 Juan [place]done[place] , [place]. [facility] [address], [place], [place], [id number] , [facility] Impacted cerumen, bilateralUnspec ified hearing loss, bilateral Sep- 4 [place] , [place]. Referring Provider: Marshal Addison. [address] [place] [address] [address], [place], [place], [id number] , [facility] Onychogryphosis Other specified peripheral vascular diseases 4 Juan Ordone[place]. [address] [place] [address], [address], [place], [place], [phone] , [facility] No Information 4 Juan [place]. [place]. Family History Family Member Type Diagnosis Age At Onset No Information Payers Payer name Insurance type Covered green party ID Authoriza tion(s) Medicare Of [place] MB [id number] Medicaid [place] [id number] Social History Type Description Quantity Date Captured Comments Alcohol Use Details Unknown Caffeine Use Details Unknown Tobacco Use Status No Information Smoking Status No Information Sex Female Chief Complaint And Reason For Visit No Information Reason For Referral Reason For Referral No Information Plan Of Treatment Date Type Action Status Goal Tdap. Due on due Goal Zoster vaccine (). Due on due Goal DEXA scan. Due on due Goal Unhealthy drug u se screening. Due on due Goal Depression screening. Due on due Goal Influenza vaccine. Due on due Goal Td vaccine. Due on due Goal Pneumococcal vaccine. Due on due Goal Tobacco screening. Due on due Goal Unhealthy drug u se screening. Due on due Goal Zoster vaccine (). Due on due Goal DEXA scan. Due on due Goal Tdap. Due on due Goal Depression screening. Due on due Goal Td vaccine. Due on due Goal Pneumococcal vaccine. Due on due Goal Influenza vaccine. Due on due Goal Influenza vaccine. Due on due Goal Pneumococcal vaccine. Due on due Goal Td vaccine. Due on due Goal Tdap. Due on due Goal DEXA scan. Due on due Goal Zoster vaccine (). Due on due Goal Unhealthy drug u se screening. Due on due Goal Depression screening. Due on due Goal Zoster vaccine (). Due on due Goal Influenza vaccine. Due on due Goal Tdap. Due on due Goal DEXA scan. Due on due Goal Pneumococcal vaccine. Due on due Goal Td vaccine. Due on due Goal Depression screening. Due on due Goal Unhealthy drug u se screening. Due on due Goal Unhealthy drug [...] Zoster vaccine (1st). Due on due Goal Depression screening. Due on due Goal DEXA scan. Due on due Goal Pneumococcal vaccine. Due on due Goal Tdap. Due on due Goal Unhealthy drug u se screening. Due on due Goal Td vaccine. Due on due Goal Zoster vaccine (1st). Due on due Goal Unhealthy drug u se screening. Due on due Goal Influenza vaccine. Due on due Goal Pneumococcal vaccine. Due on due Goal Depression screening. Due on due Goal DEXA scan. Due on due Goal Tdap. Due on due Goal Td vaccine. Due on due Goal Zoster vaccine (1st). Due on due Goal Unhealthy drug u se screening. Due on due Goal Influenza vaccine. Due on due Goal Pneumococcal vaccine. Due on due Goal Depression screening. Due on due Goal DEXA scan. Due on 4 due Goal Tdap. Due on due Appointment Rebekah Lei BOOKED Appointment Rebekah [...] nail nipper. Related to Onychogryphosis Refer to LICENSED ACUPUNCTURIST for ceru men removal. HT after ears [...]
--- OUTSIDE RECORDS SUMMARY | 2025-01-13 16:23 | XMS_ITS | Encounter Summary ---
Author Organization [facility] Address [address] [place] [address] Care Team Providers Care Tare Worker Name Role Phone Rigoberto Hernandez MD Primary Care Provider [phone] Encounter Details Date Type Department Care Team (Late st Contact Info) Description 12/17/2022 Lab Requisition [facility] Lab [address] [place] [id number] Rigoberto Hernandez MD [address] [place] [id number] Social History Tobacco Use Types Packs/Day Years Used Date Smoking Tobacco: Never Assessed Sex and Gender Information Value Date Recorded Sex Assigned at Not on file Gender Identity Not on file Sexual Orientation Not on file documented as of this encounter Plan of Treatment Not on file documented as of this encounter Procedures Procedure Name Priority Date/Time Associated Diagnosis Comments CBC Routine 12/17/2022 3:50 AM EDT DIGOXIN LEVEL Routine 12/17/2022 3:50 AM EDT BASIC METABOLIC PANEL Routine 12/17/2022 3:50 AM EDT documented in this encounter Results * Digoxin level (12/17/2022 3:50 AM EDT) Digoxin Lvl 1.3 0.7 - 2 ng/mL 12/17/2022 8:50 AM EDT [facility] ([facility]) Blood Venous blood specimen / Unknown Venipuncture / Unknown 12/17/2022 3:50 AM EDT 12/17/2022 7:54 AM EDT Rigoberto Hernandez MD LAB BLOOD ORDERABLES [facility] ([facility]) [address] [place] [address] * (ABNORMAL) Basic metabolic panel (12/17/2022 3:50 AM EDT) Sodium 143 136 - 145 mmol/L 12/17/2022 8:50 AM EDT [facility] ([facility]) Potassium 3.3(L) 3.5 - 5.1 mmol/L 12/17/2022 8:50 AM EDT [facility] ([facility]) Chloride 101 98 - 107 mmol/L 12/17/2022 8:50 AM EDT [facility] ([facility]) CO2 36(H) 21 - 31 mmol/L 12/17/2022 8:50 AM EDT [facility] ([facility]) BUN 17 7 - 25 mg/dL 12/17/2022 8:50 AM EDT [facility] ([facility]) Creatinine 0.83 0.60 - 1.20 mg/dL 12/17/2022 8:50 AM EDT [facility] ([facility]) Glucose 136(H) 70 - 100 mg/dL 12/17/2022 8:50 AM EDT [facility] ([facility]) Calcium 7.5(L) 8.6 - 10.3 mg/dL 12/17/2022 8:50 AM T [facility] ([facility]) Anion Gap 9 7 - 20 mmol/L 12/17/2022 8:50 AM EDT [facility] ([facility]) eGFR 68.6 >60.0 mL/min/1. 73m*2 12/17/2022 8:50 AM T [facility] ([facility]) Comment:The [facility] s estimated glomerular filtration rate (eGFR) will no longer include consideration of race in its calculation. The [employer] s eGFR Task Force developed new recommendations for [...] disproportionately affect any one group of individuals. BUN/Creatinine Ratio 20.5 03/2023 8:50 AM EDT [facility] ([facility]) Blood Venous blood specimen / Unknown Venipuncture / Unknown 12/17/2022 3:50 AM EDT 12/17/2022 7:54 AM EDT Rigoberto Hernandez MD LAB BLOOD ORDERABLES [facility]) [address] [place] [address] * (ABNORMAL) CBC (12/17/2022 3:50 AM EDT) Auto WBC 6.10 4.00 - 10.60 10*3/uL 12/17/2022 9:16 AM EDT [facility] ([facility]) RBC 4.56 3.80 - 5.00 10*6/uL 12/17/2022 9:16 AM T [facility] ([facility]) Hemoglobin 12.8 12.0 - 15.0 g/dL 12/17/2022 9:16 AM T [facility] ([facility]) Hematocrit 43.6 36.0 - 48.0 % 12/17/2022 9:16 AM T [facility] ([facility]) MCV 95.6 82.0 - 98.0 fL 12/17/2022 9:16 AM EDT [facility] ([facility]) MCH 28.1 27.0 - 33.0 pg 12/17/2022 9:16 AM T [facility] ([facility]) MCHC 29.4(L) 32.0 - 35.0 g/dL 12/17/2022 9:16 AM T [facility] ([facility]) RDW 20.5(H) 11.5 - 15.0 % 12/17/2022 9:16 AM EDT [facility] ([facility]) Platelets 210 150 - 400 10*3/uL 12/17/2022 9:16 AM EDT [facility]) Blood Venous blood specimen / Unknown Venipuncture / Unknown 12/17/2022 3:50 AM EDT 12/17/2022 7:54 AM EDT Rigoberto Hernandez MD LAB BLOOD ORDERABLES [facility]) [address] [place] [address] documented in this encounter Visit Diagnoses Not on filedocumented in this encounter Additional Health Concerns 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
--- OUTSIDE RECORDS SUMMARY | 2025-01-13 16:23 | XMS_ITS | Encounter Summary ---
Author Organization [email or web address] Address [id number] [address] [place] [address] Care Team Providers Care Supervisor Payroll Name Role Phone Marshal Addison MD Primary Care Provider [phone] Encounter Details Date Type Department Care Team (Late st Contact Info) Description 05/25/2022 [facility]phone [facility] [address] [facility] [address] [place] [address] Ahsan No CMA Social History Tobacco Use Types Packs/Day Years Used Date Smoking Tobacco: Every Day Cigarettes 0.5 30 Smokeless Tobacco: Never Alcohol Use Standard Drinks/Week Comments Never 0 (1 standard drink = 0.6 oz pur e alcohol) AUDIT-C Answer Date Recorded Q1: How often do you have a drink containing alc ohol? Never 07/31/2020 Average Number of Drinks Not on file 020 Frequency of Binge Drinking Not on file 07/13 PHQ-2 Answer Date Recorded Total Score 0 09/19/2021 Childcare Answer Date Recorded Childcare Unknown 07/31/2020 Employment Answer Date Recorded Employment Unknown 07/31/2020 Purpose - Life Answer Date Recorded Purpose and direction in life Unknown Comments No Sex and Gender Information Value Date Recorded Sex Assigned at Female 07/08/2023 9:47 AM EST Legal Sex Female 12:00 PM EDT Gender Identity Female 07/08/2023 9:47 AM EST Sexual Orientation Straight 07/08/2023 9: 47 AM EST documented as of this encounter Miscellaneous Notes * Telephone Encounter - Ahsan No CMA - 05/25/2022 10:24 AM EDT [email or web address] nurse contact the office, stating patient last dose was 05/23/22. Patient nurse stats the bottom of patient PICC Line is broken and cant be fixed. Patient daughter is taking her to the ER. Nurse states she don't know what to do to re-drwan her blood. * Telephone Encounter - TRENA Reyes - 05/25/2022 10:24 AM EDT Did she happened to say what emergency center she is going to? I could call them and let them know she is going to be coming in for replacement midline. * Telephone Encounter - Ahsan No CMA - 05/25/2022 10:24 AM EDT I apologize Kavitha, but know they did not say. I know Im late documented in this encounter Plan of Treatment Not on file documented as of this encounter Visit Diagnoses Not on filedocumented in this encounter Additional Health Concerns Assessment Noted Time PHQ-9 Depression Total Score: 0 09/19/19 22 11:32 AM EST documented as of this encounter Care Teams Supervisor Payroll Relationship Specialty Start Date End Date Marshal Addison MD [address] [place] [address] PCP - General Internal Medicine 10/29/24 documented as of this encounter
--- OUTSIDE RECORDS SUMMARY | 2025-01-13 16:23 | XMS_ITS | Encounter Summary ---
Author Organization [facility] Address [id number] [address] [place] [address] Care Team Providers Care Wool Sacker Name Role Phone Marshal Addison MD Primary Care Provider [phone] Encounter Details Date Type Department Care Team (Late Contact Info) Description 12/17/2022 Orders Only [facility] [address] [facility] [address] [place] [address] External, Scanning Provider Social History Tobacco Use Types Packs/Day Years Used Date Smoking Tobacco: Every Day Cigarettes 0.5 66 Smokeless Tobacco: Never Alcohol Use Standard Drinks/Week Comments Never 0 (1 standard drink = 0.6 oz pur e alcohol) AUDIT-C Answer Date Recorded Q1: How often do you have a drink containing alc ohol? Never 07/31/2020 Average Number of Drinks Not on file 020 Frequency of Binge Drinking Not on file 07/13 PHQ-2 Answer Date Recorded Total Score 0 11/13/2022 Childcare Answer Date Recorded Childcare Unknown 07/31/2020 Employment Answer Date Recorded Employment Unknown 07/31/2020 Hunger Screening Answer Date Recorded Within the past 12 months we worried whether our food would run out before we got money to buy more. Never True 11/13/2022 Within the past 12 months th e food we bought just didn't last and we didn't have money to get more. Never True 11/13/2022 Purpose - Life Answer Date Recorded Purpose and direction in life Unknown Comments No Sex and Gender Information Value Date Recorded Sex Assigned at Female 07/08/2023 9:47 AM EST Legal Sex Female 12:00 PM EDT Gender Identity Female 07/08/2023 9:47 AM EST Sexual Orientation Straight 07/08/2023 9: 47 AM EST documented as of this encounter Plan of Treatment Not on file documented as of this encounter Procedures Procedure Name Priority Date/Time Associated Diagnosis Comments US THORACENTESIS W GUIDE RT Routine 12/13/2022 documented in this encounter Results * Ultrasound guided thoracentesis right (12/13/2022) Anatomical Region Laterality Modality IR Ultrasound us Scanning Provider External IMG US ORDERABLES Fin al Result documented in this encounter Visit Diagnoses Not on filedocumented in this encounter Additional Health Concerns Assessment Noted Time PHQ-9 Depression Total Score: 0 11/14/19 23 4:41 PM EDT documented as of this encounter Care Teams Wool Sacker Relationship Specialty Start Date End Date Marshal Addison MD [address] [place] [address] PCP - General Internal Medicine 10/29/24 documented as of this encounter
--- OUTSIDE RECORDS SUMMARY | 2025-01-13 16:23 | XMS_ITS | Encounter Summary ---
Author Organization [facility] Address [address] [address] Care Team Providers Care Lump Maker Name Role Phone Rigoberto Hernandez MD Primary Care Provider [phone] Encounter Details Date Type Department Care Team (Late st Contact Info) Description 01/16/2023 Lab Requisition [facility] [address] [place] [id number] Linda Aggarwal MD [address] [place] [id number] Social History Tobacco Use Types Packs/Day Years Used Date Smoking Tobacco: Never Assessed Sex and Gender Information Value Date Recorded Sex Assigned at Not on file Gender Identity Not on file Sexual Orientation Not on file documented as of this encounter Plan of Treatment Not on file documented as of this encounter Procedures Procedure Name Priority Date/Time Associated Diagnosis Comments CBC Routine 01/16/2023 5:40 AM EDT BASIC METABOLIC PANEL Routine 01/16/2023 5:40 AM EDT URINALYSIS Routine 01/15/2023 2:00 PM EDT URINE CULTURE Routine 01/15/2023 2:00 PM EDT documented in this encounter Results * (ABNORMAL) Basic metabolic panel (01/16/2023 5:40 AM EDT) Sodium 138 136 - 145 mmol/L 01/16/2023 9:42 AM EDT [facility] Potassium 4.5 3.5 - 5.1 mmol/L 01/16/2023 9:42 AM EDT [facility] Chloride 106 98 - 107 mmol/L 01/16/2023 9:42 AM EDT [facility] CO2 28 21 - 31 mmol/L 01/16/2023 9:42 AM EDT [facility] BUN 17 7 - 25 mg/dL 01/16/2023 9:42 AM EDT [facility] Creatinine 0.64 0.60 - 1.20 mg/dL 01/16/2023 9:42 AM EDT [facility] Glucose 78 70 - 100 mg/dL 01/16/2023 9:42 AM EDT [facility]) Calcium 8.5(L) 8.6 - 10.3 mg/dL 01/16/2023 9:42 AM EDT [facility]) Anion Gap 9 7 - 20 mmol/L 01/16/2023 9:42 AM EDT [facility]) eGFR 86.0 >60.0 mL/min/1. 73m*2 01/16/2023 9:42 AM EDT [facility]) Comment:[facility] s estimated glomerular filtration rate (eGFR) will [...] any one group of individuals. BUN/Creatinine Ratio 26.6 02/2023 9:42 AM EDT [facility]) Blood Venous blood specimen / Unknown 01/16/2023 5:40 AM EDT 01/16/2023 8:47 AM EDT Linda Aggarwal MD LAB BLOOD ORDERAB LES [facility]) [address] [place] [address] * (ABNORMAL) CBC (01/16/2023 5:40 AM EDT) Auto WBC 7.89 4.00 - 10.60 10*3/uL 01/16/2023 9:19 AM EDT [facility]) RBC 3.93 3.80 - 5.00 10*6/uL 01/16/2023 9:19 AM EDT [facility]) Hemoglobin 11.6(L) 12.0 - 15.0 g/dL 01/16/2023 9:19 AM EDT [facility]) Hematocrit 37.6 36.0 - 48.0 % 01/16/2023 9:19 AM EDT [facility]) MCV 95.7 82.0 - 98.0 fL 01/16/2023 9:19 AM EDT [facility]) MCH 29.5 27.0 - 33.0 pg 01/16/2023 9:19 AM EDT [facility]) MCHC 30.9(L) 32.0 - 35.0 g/dL 01/16/2023 9:19 AM EDT [facility]) RDW 21.6(H) 11.5 - 15.0 % 01/16/2023 9:19 AM EDT [facility]) Platelets 313 150 - 400 10*3/uL 01/16/2023 9:19 AM EDT [facility]) Blood Venous blood specimen / Unknown 01/16/2023 5:40 AM EDT 01/16/2023 8:47 AM EDT Linda Aggarwal MD LAB BLOOD ORDERAB LES [facility]) [address] [place] [address] * (ABNORMAL) Urine culture, routine (01/15/2023 2:00 PM EDT) Urine Culture >100,000 CFU/Ml Enterococcus faecium VRE(AA) 01/18/2023 11:47 AM EDT [facility]) Urine Urine specimen obtained by clean catch procedure / Unknown 01/15/2023 2:00 PM EDT 01/16/2023 8:48 AM EDT Narrative Organism Antibiotic Method Susceptibility Enterococcus faecium VRE Ampicillin >8 ug/ml: Resistant Enterococcus faecium VRE Daptomycin 2 ug/ml: Susceptible Enterococcus faecium VRE Linezolid <=1 ug/ml: Susceptible Enterococcus faecium VRE Vancomycin >16 ug/ml: Resistant Linda Aggarwal MD LAB MICROBIOLOGY - GENERAL ORDERABLES [facility]) [address] [place] [address] * (ABNORMAL) Urinalysis (01/15/2023 2:00 PM EDT) Color, Urine Yellow Yellow 01/16/2023 9:19 AM EDT [facility]) Clarity, Urine Clear Clear 01/16/2023 9:19 AM EDT [facility]) pH, Urine 7.0 5.0 - 8.0 pH 01/16/2023 9:19 AM EDT [facility]) Leukocytes, Urine Negative Negative 01/16/2023 9:19 AM EDT [facility] Nitrite, Urine Negative Negative 01/16/2023 9:19 AM EDT [facility] Protein, Urine Negative Negative mg/dL 01/16/2023 9:19 AM EDT [facility]) Glucose, Urine Negative Negative mg/dL 01/16/2023 9:19 AM T [facility]) Bilirubin, Urine Negative Negative 01/16/2023 9:19 AM T [facility]) Specific [place], Urine 1.013(L) 1.015 - 1.020 01/16/2023 9:19 AM EDT [facility] Ketones, Urine Negative Negative mg/dL 01/16/2023 9:19 AM EDT [facility] Blood, Urine Negative Negative 01/16/2023 9:19 AM EDT [facility] Urine Urine specimen obtained by clean catch procedure / Unknown 01/15/2023 2:00 PM EDT 01/16/2023 8:48 AM EDT Narrative [facility] - 01/16/2023 9:19 AM EDT Microscopics not performed on urines with negative chemical reactions unless requested on original order. 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
--- OUTSIDE RECORDS SUMMARY | 2025-01-13 16:23 | XMS_ITS | Clinical Summary ---
Author Organization [facility] Address [address] [place] [address] Care Team Providers Care Overhead Cleaner Maintainer Name Role Phone Rigoberto Hernandez MD Primary Care Provider [phone] Social History Tobacco Use Types Packs/Day Years Used Date Smoking Tobacco: Never Assessed [place] Safety & Environment Answer Date Rec orded Fear of Current or Ex-Partner Not on file Emotionally Abused Not on file 10/03/2023 Physically Abused Not on file 10/03/2023 Sexually Abused Not on file 10/03/2023 Physically or Sexually Abused Not on file Sex and Gender Information Value Date Recorded Sex Assigned at Not on file Gender Identity Not on file Sexual Orientation Not on file Plan of Treatment Health Maintenance Due Date Last Done Comments Medicare Annual Wellness (AWV) 1936 Depression Screening 1948 Adult Tetanus 1958 Zoster Vaccines (1 of 2) 1986 Fall Risk Screening 2001 Pneumococcal Vaccine: 65+ Ye ars (1 of 1 - PCV) 2001 COVID-19 Vaccine (2023-2 5 season) 2024 Influenza Vaccine (Season Ended) 2025 HIB Vaccines Aged Out No longer eligi ble based on patient's age to complete this topic HPV Vaccines Aged Out No longer eligi ble based on patient's age to complete this topic IPV Vaccines Aged Out No longer eligi ble based on patient's age to complete this topic Meningococcal B Vaccine Aged Out No l onger eligible based on patient's age to complete this topic Meningococcal Vaccine Aged Out No linh wan eligible based on patient's age to complete this topic Rotavirus Vaccines Aged Out No longer eligible based on patient's age to complete this topic 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
--- OUTSIDE RECORDS SUMMARY | 2025-01-13 16:23 | XMS_ITS | Referral Summary ---
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
--- OUTSIDE RECORDS SUMMARY | 2025-01-13 16:23 | XMS_ITS | Encounter Summary ---
[id number] [address] [place] [address] Care Team Providers Care Electric Serviceman Name Role Phone Marshal Addison MD Primary Care Provider [phone] Encounter Details Date Type Department Care Team (Late Contact Info) Description 01/02/2023 Orders Only [facility] [address] [place] [address] External, Scanning Provider Social History Tobacco Use [...] Procedure Name Priority Date/Time Associated Diagnosis Comments XR CHEST 1 VW Routine 12/25/2022 documented in this encounter Results * X-ray chest 1 view (12/25/2022) Anatomical Region Laterality Modality Body, Chest N/A Computed Radiogr aphy us Scanning Provider External IMG DIAGNOSTIC IMAGIN G ORDERABLES Final Result documented in this encounter Visit Diagnoses Not on filedocumented in this encounter Additional Health Concerns Assessment Noted Time PHQ-9 Depression Total Score: 0 11/14/19 23 4:41 PM EDT documented as of this encounter Care Teams Electric Serviceman Relationship Specialty Start Date End Date Marshal Addison MD [address] [place] [address] PCP - General Internal Medicine 10/29/24 documented as of this encounter
--- OUTSIDE RECORDS SUMMARY | 2025-01-13 16:23 | XMS_ITS | Clinical Summary ---
Author Organization [facility] tem Address [id number] [address] [place] [address] Care Team Providers Care Tin Stacker Name Role Phone Marshal Addison MD Primary Care Provider [phone] Allergies No known active allergies Medications calcium citrate (CALCITRATE) 200 mg (950 mg) tablet Take 2 tablets (400 mg total) by mouth in the morning and 2 tablets (400 mg total) at noon and 2 tablets (400 mg total) in the evening. Take with meals. 30 tablet 3 Active metoprolol succinate XL (TOPROL XL) 25 mg 24 hr tablet Take 1 tablet (25 mg total) by mouth in the morning. 30 tablet 3 Active cholecalciferol (VITAMIN D3) 50,000 units capsule Take 1 capsule (50,000 Units total) by mouth once a week. 4 capsule 3 Active cholecalciferol 2,000 units tablet Take 1 tablet (2,000 Units total) by mouth in the morning. 30 tablet 3 Active menthol (BIOFREEZE, MENTHOL,) 4 % gel Apply 1 Application topically every 6 (six) hours as needed. Active warfarin (COUMADIN) 1 mg tablet Take 1 tablet (1 mg total) by mouth in the evening. 5 Active Active Problems Problem Noted Date Diagnosed Date Stage 3a chronic kidney disease 10/30/2024 Incarcerated hernia 10/29/2024 Closed fracture of right hip 07/09/2023 Fall, initial encounter 07/08/2023 Closed intertrochanteric fracture of right femur 07/08/2023 CHF (congestive heart failure) 11/06/2022 Moderate malnutrition 08/17/2022 Cellulitis of left lower leg 08/16/2022 Bilateral edema of lower extremity 08/16/2022 Acute on chronic congestive heart failure, unspecified heart failure type 08/15/2022 Ischemic cardiomyopathy 09/18/2021 Elevated troponin 07/21/2021 Chronic bilateral low back pain with bilateral s ciatica 07/21/2021 Acute cystitis with hematuria 07/21/2021 Coronary artery disease invo lving redding coronary 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 07/19/2021 Nonrheumatic mitral valve regurgitation 07/19/20 Nonrheumatic tricuspid valve regurgitation 07/19 Tobacco abuse 07/19/2021 Chronic systolic congestive heart failure 2020 Myocardial infarction 05/30/2021 Atrial fibrillation with RVR 05/29/2021 Resolved Problems Problem Noted Date Diagnosed Date Resolved Date CKD (chronic kidney disease) 10/30/2024 10/30/2024 Acute respiratory failure with hypoxia 09/19/2021 09/19/2021 Encounters Date Type Department Care Team Description 11/12/2024 11:00 AM EDT Office Visit [facility] [address] [place] [address] Lili Geller APRN-EAR NOSE THROAT PHYSICIAN Status post umbilical hernia repair, follow-up exam (Primary Dx) 11/12/2024 Travel 10/29/2024 10:32 PM EDT Anesthesia Event [facility] - Surgery [address] [place] [address] Farshad Young, Harmony More, CARE ASSISTANT-GAME AND FISH PROTECTOR 10/29/2024 10:30 PM EDT - 10/29/2024 11:53 PM EDT Surgery [facility] - Surgery [address] [place] [address] Celio George MD REPAIR HERNIA UMBILICAL 10/29/2024 7:48 PM EDT - 10/31/2024 2:10 PM EDT Hospital Encounter [facility] - Acute Care [address] [place] [address] Desiree Thorpe MD Shah, Magaly Diaz MD Incarcerated hernia (Primary Dx) Discharge Disposition: Home 10/29/2024 Travel 10/14/2024 Telephone [facility] [address] [place] [address] Yuki Burns from Last 3 Months Immunizations Immunization Administration Dates Next Due Tdap 08/15/2022 Tuberculin Skin Test; Unspecified Formulation ,12/14/2022 Family History Medical History Relation Name Comments Diabetes Father Diabetes Mother Relation Name Status Comments Father Mother Social History Tobacco Use Types Packs/Day Years Used Date Smoking Tobacco: Every Day Cigarettes 0.5 66 Smokeless Tobacco: Never Tobacco Cessation:Ready to Q uit: Not Asked; Counseling Given: Not Answered Alcohol Use Standard Drinks/Week Comments Never 0 (1 standard drink = 0.6 oz pur e alcohol) [facility] Utilities Answer Date Recorded In the past 12 months has [employer], gas, oil, or water company threatened to shut off services in your home? No 10/30/2024 AUDIT-C Answer Date Recorded Q1: How often do you have a drink containing alc ohol? Never 07/31/2020 Average Number of Drinks Not on file 020 Frequency of Binge Drinking Not on file 07/13 PHQ-2 Answer Date Recorded Total Score 0 11/13/2022 PRAPARE - Transportation Answer Date Re corded In the past 12 months, has l ack of transportation kept you from medical appointments or from getting medications? No 10/11 In the past 12 months, has l ack of transportation kept you from meetings, work, or from getting things needed for daily living? No 10/30/2024 Housing Instability Answer Date Recorde d Are you worried or concerned that in the next two months you may not have stable housing that you own, rent or stay in as a part of a household? No 10/30/2024 Childcare Answer Date Recorded Childcare Unknown 07/31/2020 Employment Answer Date Recorded Employment Unknown 07/31/2020 Hunger Screening Answer Date Recorded Within the past 12 months we worried whether our food would run out before we got money to buy more. Never True 11/12/2024 Within the past 12 months th e food we bought just didn't last and we didn't have money to get more. Never True 11/12/2024 Purpose - Life Answer Date Recorded Purpose and direction in life Unknown Comments No Sex and Gender Information Value Date Recorded Sex Assigned at Female 07/08/2023 9:47 AM EST Legal Sex Female 12:00 PM EDT Gender Identity Female 07/08/2023 9:47 AM EST Sexual Orientation Straight 07/08/2023 9: 47 AM EST Last Filed Vital Signs Vital Sign Reading Time Taken Comments Blood Pressure 106/46 11/12/2024 10:52 AM EDT Pulse 104 11/12/2024 10:52 AM EDT Temperature 36.6 C (97.9 F) 10/31/2024 8:30 AM EDT Respiratory Rate 16 10/31/2024 8:30 AM EDT Oxygen Saturation 92% 10/31/2024 8:30 AM EDT Inhaled Oxygen Concentration - - Weight 51.7 kg (114 lb) 11/12/2024 10:52 AM EDT Height 152.4 cm (5') 11/12/2024 10:52 AM EDT Body Mass Index 22.26 11/12/2024 10:52 AM EDT Plan of Treatment Health Maintenance Due Date Last Done Comments Tobacco Counseling 1936 Zoster (Shingles) Vaccine (1 of 2) 1986 Fall Risk Screening 2001 Depression Screening 11/14/2023 11/13/2022 Influenza Vaccine 04/12/2025 Tobacco Screening 11/12/2025 11/12/2024 DTaP,Tdap and Td Vaccines (2 - Td or Tdap) 08/15/2032 08/15/2022 Goals Goal Patient Goal Type Associated Problems Recent Progress Patient-Stated? Author return to [facility] Yes Jennie Foreman LSW Note: Evaluation of progress towards goal: surgery yesterday, feeling much better, less pain Medical Devices Implanted Type Area Residential Real Estate Assistant Device Identifier Shelf Expiration Date Model / Serial / Lot Nail Im 170mm 9mm 125d Shrt Cnn Tfn-Adv Lat Rlf Cut Ti Cocr - [id number] Implanted:Qty : 1 on 07/10/2023 by Rafy Smith MD at [facility] Nail Right: Hip [employer] 02/08/2033 04.037.91 2S / / [id number] Blade Im Nl Au 90mm 10.35mm Tfn-Adv Hlcl Fem Prox Ti Niobium - [id number] Implanted:Qty : 1 on 07/10/2023 by Rafy Smith MD at [facility] Orthopedic Implant Right: Hip [employer] 11/09/2032 04.038.39 0S / / [id number] Screw Bn 34mm 5mm 4.3mm St Lck Strdr Blnt Tip Ti T25 Ft Strl - [id number] Implanted:Qty : 1 on 07/10/2023 by Rafy Smith MD at [facility] Screw Right: Hip [employer] 05/11/2032 04.005.52 4S / / [id number] Procedures Procedure Name Priority Date/Time Associated Diagnosis Comments DNR PHYSICIAN ORDER REPORT (SCANNED INTO EHR) 11/10/2024 10:46 AM EDT PROTIME & INR Add-On 10/31/2024 5:32 AM EDT CBC WITH AUTO DIFFERENTIAL Routine 10/31/2024 5:32 AM EDT MAGNESIUM Routine 10/31/2024 5:32 AM EDT COMPREHENSIVE METABOLIC PANEL Routine 10/31/2024 5:32 AM EDT CBC WITH AUTO DIFFERENTIAL Routine 10/30/2024 5:37 AM EDT MAGNESIUM Routine 10/30/2024 5:37 AM EDT COMPREHENSIVE METABOLIC PANEL Routine 10/30/2024 5:37 AM EDT TYPE AND SCREEN STAT 10/30/2024 2:20 AM EDT CO AN ELECTIVE ENDOTRACHEAL AIRWAY Routine 10/29/2024 10:37 PM EDT REPAIR HERNIA UMBILICAL 10/29/2024 10:32 PM EDT incarcerated umbilical hernia CT ABDOMEN AND PELVIS WO CONT STAT 10/29/2024 9:12 PM EDT B-TYPE NATRIURETIC PEPTIDE Routine 10/29/2024 8:26 PM EDT APTT STAT 10/29/2024 8:26 PM EDT PROTIME & INR STAT 10/29/2024 8:26 PM EDT LACTATE W/ REFLEX STAT 10/29/2024 8:2 6 PM EDT COMPREHENSIVE METABOLIC PANEL STAT 10/29/2024 8:26 PM EDT CBC WITH AUTO DIFFERENTIAL STAT 10/29/2024 8:26 PM EDT POCT NURSING URINE MACROSCOPIC UA Routine 10/29/2024 7:51 PM EDT SARS/FLU A+B/RSV BY NAAT/MOLECULAR (M4RT COLLECTION TUBE) STAT 10/29/2024 7:39 PM EDT from Last 3 Months Results * DNR Physician Order Report (Scanned Into EHR) (11/10/2024 10:46 AM EDT) Narrative 11/10/2024 10:46 AM EDT Ordered by an unspecified provider. us Not In System Ref Prov OUTPATIENT REFERRAL ORDER JASPREET Final Result * (ABNORMAL) CBC auto differential (10/31/2024 5:32 AM EDT) Only the most recent of3 resultswithin the time period is included. White Blood Cells 12.8(H) 4.0 - 11.0 X10E9/L 10/31/2024 6:05 AM [facility] RBC count 4.00 3.80 - 5.20 X10E12/L 10/31/2024 6:05 AM [facility] Hemoglobin 11.9 11.7 - 15.5 g/dL 10/31/2024 6:05 AM [facility] Hematocrit 35.9 35 - 47 % 10/31/2024 6:05 AM [facility] MCV 90 80 - 100 fL 10/31/2024 6:05 AM [facility] MCH 29.7 27 - 34 pg 10/31/2024 6:05 AM [facility] MCHC 33.1 32 - 36 g/dL 10/31/2024 6:05 AM [facility] RDW 16.7(H) 11.5 - 15.0 % 10/31/2024 6:05 AM [facility] Platelets 270 150 - 450 X10E9/L 10/31/2024 6:05 AM [facility] MPV 9.3 7 - 12 fL 10/31/2024 6:05 AM [facility] % neutrophils 81.2 % 10/31/2024 6:05 AM [facility] % lymphocytes 12.0 % 10/31/2024 6:05 AM [facility] % monocytes 5.9 % 10/31/2024 6:05 AM [facility] % eosinophils 0.3 % 10/31/2024 6:05 AM [facility] % Basophils 0.6 % 10/31/2024 6:05 AM [facility] Neutrophils Absolute (A) 10.4(H) 1.5 - 6.6 X10E9/L 10/31/2024 6:05 AM [facility] Lymphocytes Absolute 1.5 1.0 - 3.5 X10E9/L 10/31/2024 6:05 AM [facility] Monocytes Absolute 0.8 0 - 0.9 X10E9/L 10/31/2024 6:05 AM [facility] Eosinophils Absolute 0.0 0.0 - 0.4 X10E9/L 10/31/2024 6:05 AM EDT [facility] Basophils Absolute 0.1 0.0 - 0.2 X10E9/L 10/31/2024 6:05 AM EDT [facility] Blood / Unknown 10/31/2024 5 :32 AM EDT 10/31/2024 5:50 AM EDT Celio George MD LAB BLOOD ORDERABLES Final Result [address] [address] * (ABNORMAL) Protime & INR (10/31/2024 5:32 AM EDT) Only the most recent of2 resultswithin the time period is included. Protime 28.9(H) 9.8 - 13.2 sec 10/31/2024 8:42 AM EDT [facility] Comment:NEW REFERENCE RANGE Inr 2.5(H) 0.9 - 1.2 10/31/2024 8:42 AM EDT [facility] PLASMA 10/31/2024 5:32 AM EDT 10/31/2024 5:50 AM EDT Result [facility] Celio George MD LAB BLOOD ORDERABLES Final Result Performing Organization Address City/[facility]/ZIP Co de Phone Number [address] [address] * Magnesium (10/31/2024 5:32 AM EDT) Only the most recent of2 resultswithin the time period is included. Magnesium 1.8 1.8 - 2.6 mg/dL 10/31/2024 6:07 AM EDT [facility] PLASMA 10/31/2024 5:32 AM EDT 10/31/2024 5:50 AM EDT Celio George MD LAB BLOOD ORDERABLES Final Result NIKA [facility] [address] [place] [address] * (ABNORMAL) Comprehensive metabolic panel (10/31/2024 5:32 AM EDT) Only the most recent of3 resultswithin the time period is included. Sodium 137 134 - 146 mmol/L 10/31/2024 6:02 AM [facility] Potassium, Bld 4.0 3.5 - 5.0 mmol/L 10/31/2024 6:02 AM [facility] Chloride 106 98 - 109 mmol/L 10/31/2024 6:02 AM [facility] CO2 24 22 - 32 mmol/L 10/31/2024 6:02 AM [facility] Anion gap 7 5 - 15 mmol/L 10/31/2024 6:02 AM [facility] BUN 19 5 - 27 mg/dL 10/31/2024 6:07 AM [facility] Creatinine 1.16(H) 0.40 - 1.00 mg/dL 10/31/2024 6:07 AM [facility] Comment:METHOD TRACEABLE TO IDMS STANDARD Glucose 105(H) 65 - 99 mg/dL 10/31/2024 6:02 AM [facility] Calcium 8.4(L) 8.5 - 10.5 mg/dL 10/31/2024 6:02 AM [facility] Total Protein 6.2 6.0 - 8.0 g/dL 10/31/2024 6:07 AM [facility] Albumin 3.2 3.2 - 5.3 g/dL 10/31/2024 6:07 AM [facility] Alkaline Phosphatase 52 39 - 130 U/L 10/31/2024 6:07 AM [facility] AST 17 0 - 41 U/L 10/31/2024 6:07 AM [facility] ALT 11 0 - 31 U/L 10/31/2024 6:07 AM [facility] Total bilirubin 0.5 0.3 - 1.2 mg/dL 10/31/2024 6:07 AM EDT [facility] eGFR (CKD-EPI)non-rac e dependent 45(L) >59 ml/min/1.7 3sq.m 10/31/2024 6:07 AM EDT [facility] Comment: Reported eGFR is based on the CKD-EPI 2020 equation that does not use a race coefficient. PLASMA 10/31/2024 5:32 AM EDT 10/31/2024 5:50 AM EDT Celio George MD LAB BLOOD ORDERABLES Final Result Performing Organization Address [facility] Co de Phone Number [facility] [address] [place] [address] * Type and screen(includes indirect ghada) (10/30/2024 2:20 AM EDT) Blood 10/30/2024 2:20 AM EDT Karin Fair APRN-[facility] BLOOD BANK TEST ORDER JASPREET Edited Result - Final Performing Organization Address City/[facility] Co de Phone Number NIKA * CO AN ELECTIVE ENDOTRACHEAL AIRWAY (10/29/2024 10:37 PM EDT) Harmony Nguyen APRN-CRNA - 10/29/2024 10:37 PM EDT JOHANA Osei 10/29/2024 10:55 PM Airway Patient location during procedure: OR Urgency: Elective Date/Time: 10/29/2024 10:37 PM Airway not difficult IV In Situ: Peripheral General Information and Staff Service Provider: JOHANA Osei Placed by: JOHANA Osei Patient Identified, IV Checked, Risks and Benefits Discussed, Surgical Consent, Monitors and Equipment Checked, Pre-op Evaluation and Timeout Performed Fire Risk Assessment Score: 0 Consent for Emergent Airway (if performed for an anesthetic, see related documentation for consents) Risks and benefits: risks, benefits and alternatives were discussed Indications and Patient Condition Sedation level: Deep Preoxygenated: yes Patient position: Supine MILS maintained throughout Mask difficulty assessment: Vent By Mask Indications for airway management: Anesthesia Spontaneous ventilation: present Complications: No Complicating Factors: No Final Airway Details Final airway type: ETT Endotracheal airway: Cuffed and ETT - Single Lumen Techniques used for successful ETT Placement: Direct Laryngoscopy and With Stylet Cormack-Lehane Classification: Grade I Facilitating devices/methods: Cricoid PressureCricoid Pressure Applied By: Tari Griffin Endotracheal tube insertion site: Oral No Bite Block Placed Post Intubation Trauma? No Visibility: Cords Clear Blade: Raúl Blade size: #3 Placement verified by: chest auscultation, capnography and symmetrical chest wall movement ETT size: 7.0 mm Measured from: Lips Secured at (cm): 21 Number of other approaches attempted: 0 Number of attempts at approach: 1 us Farshad Young DO ANESTHESIA ORDERABLES Final R esult * CT abdomen and pelvis without contrast (10/29/2024 9:12 PM EDT) Anatomical Region Laterality Modality Body, Abdomen, Body Covera N/A Compu luis Tomography 10/29/2024 9:14 PM EDT Narrative 10/29/2024 9:[address] ABDOMEN AND PELVIS WO CONT: 10/29/2024 9:00 PM CLINICAL INFORMATION: abdominal pain at site of hernia COMPARISON: CT abdomen/pelvis 07/08/2023 Procedure: CT images of abdomen and pelvis obtained without the administration of contrast. Lack of IV contrast limits evaluation, especially solid organs. All CT scans at this facility use dose modulation, iterative reconstruction, and/or weight based dosing when appropriate to reduce radiation dose to as low as reasonably achievable. FINDINGS: There is motion artifact decreasing sensitivity of the exam. Lower Chest: Mild atelectasis in the lung bases with appearance of peribronchial thickening. Stable cardiomegaly. Liver and biliary: No acute findings in the liver. Gallbladder is unremarkable. No biliary dilatation. Pancreas: Mild fatty replacement of the pancreatic head. No acute peripancreatic fluid. Spleen: Unremarkable. Adrenals: Left adrenal gland nodule is stable from prior and likely related to adenoma. Kidneys, Ureters, Bladder: No contour deforming renal masses. No collecting system dilatation. There is a nonobstructing 0.5 cm calculus in the right lower pole. Urinary bladder is unremarkable. Bowel: There is a ventral abdominal wall hernia measuring approximately 4.5 x 2.7 x 4.0 cm containing a loop of small bowel. Loops of small bowel along the anterior abdomen, measuring up to 2.2 cm in diameter. No evidence of complete obstruction. Lymph Nodes: No definite enlarged mediastinal or retroperitoneal lymph nodes. Vasculature: Mild focal ectasia of the infrarenal abdominal aorta measuring 2.2 cm, unchanged from prior exam. Severe atherosclerotic calcifications are present. Reproductive Organs: No large pelvic masses. Musculoskeletal: Partial visualization of intramedullary lindsay in the right femur. Scoliosis of the spine. Severe multilevel degenerative disc disease with wedge compression deformities of T11, L1 1, and L2 surgical cement within T11 and L3. IMPRESSION: * Midline ventral abdominal wall hernia containing a loop of small bowel mildly dilated proximal small bowel loops concerning for obstruction and incarceration * Peribronchial thickening in the posterior lung bases, similar prior exam which may represent infectious or chronic inflammatory process. Approved by Resident Julian Ramirez MD on 10/29/2024 9:14 PM ITim MD have personally reviewed the image(s) and agree with and/or edited the report Finalized by Tim Canela MD on 10/29/2024 9:34 PM Procedure Note Tim Canela MD - 10/29/2024 CT ABDOMEN AND PELVIS WO CONT: 10/29/2024 9:00 PM CLINICAL INFORMATION: abdominal pain at site of hernia COMPARISON: CT abdomen/pelvis 07/08/2023 Procedure: CT images of abdomen and pelvis obtained without the administration ofcontrast. Lack of IV contrast limits evaluation, especially solid organs. All CT scans at this facility use dose modulation, iterativereconstruction, and/or weight based dosing when appropriate to reduceradiation dose to as low as reasonably achievable. FINDINGS: There is motion artifact decreasing sensitivity of the exam. Lower Chest: Mild atelectasis in the lung bases with appearance ofperibronchial thickening. Stable cardiomegaly. Liver and biliary: No acute findings in the liver. Gallbladder isunremarkable. No biliary dilatation. Pancreas: Mild fatty replacement of the pancreatic head. No acuteperipancreatic fluid. Spleen: Unremarkable. Adrenals: Left adrenal gland nodule is stable from prior and likelyrelated to adenoma. Kidneys, Ureters, Bladder: No contour deforming renal masses. Nocollecting system dilatation. There is a nonobstructing 0.5 cm calculus inthe right lower pole. Urinary bladder is unremarkable. Bowel: There is a ventral abdominal wall hernia measuring approximately4.5 x 2.7 x 4.0 cm containing a loop of small bowel. Loops of small bowelalong the anterior abdomen, measuring up to 2.2 cm in diameter. Noevidence of complete obstruction. Lymph Nodes: No definite enlarged mediastinal or retroperitoneal lymphnodes. Vasculature: Mild focal ectasia of the infrarenal abdominal aortameasuring 2.2 cm, unchanged from prior exam. Severe atheroscleroticcalcifications are present. Reproductive Organs: No large pelvic masses. Musculoskeletal: Partial visualization of intramedullary lindsay in the rightfemur. Scoliosis of the spine. Severe multilevel degenerative disc diseasewith wedge compression deformities of T11, L1 1, and L2 surgical cementwithin T11 and L3. IMPRESSION: * Midline ventral abdominal wall hernia containing a loop of small bowelmildly dilated proximal small bowel loops concerning for obstruction andincarceration * Peribronchial thickening in the posterior lung bases, similar priorexam which may represent infectious or chronic inflammatory process. Approved by Resident Julian Ramirez MD on 10/29/2024 9:14 PM I, Tim Canela MD have personally reviewed the image(s) and agree withand/or edited the report Finalized by Tim Canela MD on 10/29/2024 9:34 PM Karin Fair APRN-EAR NOSE THROAT PHYSICIAN IMG CT ORDERABLES Fin al Result * Lactate w/ Reflex (10/29/2024 8:26 PM EDT) Lactate w/ Reflex 1.7 0.4 - 2.0 mmol/L 10/29/2024 8:49 PM EDT [facility] Comment: Result did not trigger repeat Lactate, re-order if needed. Blood (PLASMA) 10/29/2024 8: 26 PM EDT 10/29/2024 8:30 PM EDT Karin D Karchner CARE ASSISTANT-EAR NOSE THROAT PHYSICIAN LAB BLOOD ORDERABLES Final Result Performing Organization Address City/[facility]/ZIP Co de Phone Number [address] [address] * APTT (10/29/2024 8:26 PM EDT) aPTT 27 26 - 37 sec 10/29/2024 8:49 PM EDT [facility] Comment:NEW REFERENCE RANGE Blood (PLASMA) 10/29/2024 8: 26 PM EDT 10/29/2024 8:30 PM EDT us Karin Fair CARE ASSISTANT-EAR NOSE THROAT PHYSICIAN LAB BLOOD ORDERABLES Final Result Performing Organization Address [facility]/ZIP Co de Phone Number [address] [address] * (ABNORMAL) B-type natriuretic peptide (10/29/2024 8:26 PM EDT) BNP 629(H) <100.0 pg/mL 10/30/2024 12:16 AM EDT [facility] PLASMA 10/29/2024 8:26 PM EDT 10/29/2024 8:30 PM EDT us Karin Fair CARE ASSISTANT-EAR NOSE THROAT PHYSICIAN LAB BLOOD ORDERABLES Final Result Performing Organization Address City/[facility]/ZIP Co de Phone Number [address] [address] * (ABNORMAL) POCT Nursing Urine Macroscopic UA (10/29/2024 7:51 PM EDT) Specific gravity DEBBIE 1.020 1.003 - 1.035 10/29/2024 8:41 PM EDT [facility] Leukocyte esterase DEBBIE Trace(A) Negative^ Negative 10/29/2024 8:41 PM EDT [facility] Nitrite DEBBIE Negative Negative^ Negative 10/29/2024 8:41 PM EDT [facility] Ph 7.0 5.0 - 8.5 10/29/2024 8:41 PM EDT [facility] Protein DEBBIE Negative Negative^ Negative mg/dL 10/29/2024 8:41 PM EDT [facility] Urine glucose DEBBIE Negative Negative^ Negative mg/dL 10/29/2024 8:41 PM EDT [facility] Ketones DEBBIE Trace(A) Negative^ Negative mg/dL 10/29/2024 8:41 PM EDT [facility] Urobilinogen DEBBIE 0.2 <1.1 eu/dL 10/29/2024 8:41 PM EDT [facility] Bilirubin DEBBIE Negative Negative^ Negative 10/29/2024 8:41 PM EDT [facility] Hemoglobin DEBBIE Negative Negative^ Negative 10/29/2024 8:41 PM EDT [facility] Urine / Unknown 10/29/2024 7 :51 PM EDT 10/29/2024 8:41 PM EDT Desiree Thorpe MD POINT OF CARE TEST ORDERAB LES Final Result [address] [place] [address] * SARS/FLU A+B/RSV by NAAT/Molecular (M4RT Collection Tube) (10/29/2024 7:39 PM EDT) FLU A PCR Negative Negative^Ne gative 10/29/2024 10:48 PM EDT [facility] FLU B PCR Negative Negative^Ne gative 10/29/2024 10:48 PM EDT [facility] RSV by PCR Negative Negative^Ne gative 10/29/2024 10:48 PM EDT [facility] SARS CoV 2 BY PCR Not Detected Not Detected^No t Detected 10/29/2024 10:48 PM EDT [facility] Comment: NOTE The Xpert Xpress SARS-CoV-2/Flu/RSV Plus test is a rapid, multiplexed real-time RT-PCR test intended for the simultaneous qualitative detection and differentiation of SARS-CoV-2, influenza A, influenza B and respiratory syncytial virus (RSV) viral RNA from individuals suspected of respiratory viral infection consistent with COVID-19 by their healthcare provider. This test has not been validated in asymptomatic patients. The Xpert Xpress SARS-CoV-2 test is intended for use by qualified and trained operators who are performing tests using either [employer] DX or Aspects Software systems and is limited to laboratories that meet the CLIA requirements to perform high and moderate complexity tests. The Xpert Xpress SARS-CoV-2/Flu/RSV Plus is only for use under the Food and Drug Administration's Emergency Use Authorization. Results are for the simultaneous detection and differentiation of SARS-CoV-2, influenza A, influenza B and RSV nucleic acids in clinical specimens. SARS-CoV-2, influenza A, influenza B and RSV RNA identified by this test are generally detectable in upper respiratory samples during the acute phase of infection. Positive results are indicative of the presence of the identified virus, but do not rule out bacterial infection or co-infection with other pathogens not detected by this test. Clinical correlation with patient history and other diagnostic information is necessary to determine patient infection status. The agent detected may not be the definite cause of disease. Negative results do not preclude SARS-CoV-2, influenza A, influenza B and RSV infection and should not be used as the sole basis for treatment or other patient management decisions. Negative results must be combined with clinical observations, patient history and epidemiological information. An Invalid result may occur with specimen-associated inhibition unable to be resolved with specimen repeat. Fact Sheet for Healthcare Providers: https://www.fda.gov/media/038325/download Fact Sheet for Patients: https://www.fda.gov/media/958376/download Nasopharyngeal structure / Unknown 10/29/2024 7:39 PM EDT 10/29/2024 9:51 PM EDT us Desiree Thorpe MD MICROBIOLOGY - GENERAL ORD ERABLES Final Result [address], [place] [address] from Last [address] [place] [address] MEDICARE [place]ICAID [place] Advance Directives Documents on File Type Date Recorded Patient Calender Operator Expl anation Advance Directive 10/29/2024 7:51 PM Advan ce Directive 10-29-24 DNR Physician Order 07/19/2023 10:17 AM * Full Code (Latest Code Status on File) Date Activated Date Inactivated Comments 10/29/2024 9:40 PM 10/31/2024 4:42 PM * DNR Comfort Care Arrest (DNR-CCA) Murray Date Activated Date Inactivated Comments 07/08/2023 5:51 PM 07/12/2023 5:41 PM * DNR Comfort Care Arrest (DNR-CCA) Murray Date Activated Date Inactivated Comments 11/07/2022 7:10 AM 11/08/2022 8:15 PM * Full Code Date Activated Date Inactivated Comments 08/15/2022 6:14 PM 08/20/2022 12:34 AM * Full Code Date Activated Date Inactivated Comments 07/22/2021 11:21 AM 07/22/2021 5:22 PM Care Teams Tin Stacker Relationship Specialty Start Date End Date Marshal Addison MD [address] [place] [address] PCP - General Internal Medicine 10/29/24
--- OUTSIDE RECORDS SUMMARY | 2025-01-13 16:23 | XMS_ITS | Encounter Summary ---
Author Organization [employer] Address [id number] [address] [place] [address] Care Team Providers Care Wide Piece Goods Inspector Name Role Phone Marshal Addison MD Primary Care Provider [phone] Encounter Details Date Type Department Care Team (Late Contact Info) Description 06/05/2021 Telephone [facility] [facility] [address] [place] [phone] Hugh Morales MD [address] [facility] [place] [address] Social History Tobacco Use Types Packs/Day Years [...] of Binge Drinking Not on file 07/13 Childcare Answer Date Recorded Childcare Unknown 07/31/2020 [...] Orientation Straight 07/08/2023 9: 47 AM EST COVID-19 Exposure Response Date Recorded In the last month, have you been in contact with someone who was confirmed or suspected to have Coronavirus / COVID-19? No / Unsure 05/29/2021 2:09 PM EDT documented as of this encounter Miscellaneous Notes * Telephone Encounter - Maria Natarajan - 06/05/2021 7:29 AM EDT ----- Message from Hugh Morales MD sent at 06/02/2021 10:11 AM EDT ----- Patient is being discharged today and I signed off. [facility] to [facility] as [facility] consult for severe MR, severe TR. Arrange office visit with the AP P in 1-2 weeks. Refer to [facility] to be seen next week-diagnosissystolic heart failure.Thanks. * Telephone Encounter - Maria Natarajan - 06/05/2021 7:29 AM EDT N/A OR VOICEMAIL * Telephone Encounter - Maria Natarajan - 06/05/2021 7:29 AM EDT N/A OR VOICEMAIL SENT PT LETTER documented in this encounter Plan of Treatment Not on file documented as of this encounter Visit Diagnoses Not on filedocumented in this encounter Care Teams Wide Piece Goods Inspector Relationship Specialty Start Date End Date Marshal Addison MD [address] [facility] [address] PCP - General Internal Medicine 10/29/24 documented as of this encounter
--- OUTSIDE RECORDS SUMMARY | 2025-01-13 16:23 | XMS_ITS | Encounter Summary ---
Author Organization [facility] [employer] [facility] [employer] Address [id number] [address] [place] [address] Care Team Providers Care Mooner Name Role Phone Marshal Addison MD Primary Care Provider [phone] Encounter Details Date Type Department Care Team (Late Contact Info) Description 01/28/2023 Orders Only [facility] [address] [facility] [address] [place] [address] External, Scanning Provider Social History Tobacco Use [...] Procedure Name Priority Date/Time Associated Diagnosis Comments CT LUMBAR SPINE WO CONT Routine 01/25/2023 CT ABDOMEN AND PELVIS WO CONT Routine 01/24/2023 CT BRAIN WO CONT Routine 01/24/2023 documented in this encounter Results * CT lumbar spine without contrast (01/25/2023) Anatomical Region Laterality Modality MSK, Neuro, Spine, L-spine, Spine Covera N/A Computed Tomography us Scanning Provider External IMG CT ORDERABLES Fin al Result * CT abdomen and pelvis without contrast (01/24/2023) Anatomical Region Laterality Modality Body, Abdomen, Body Covera N/A Compu luis Tomography us Scanning Provider External IMG CT ORDERABLES Fin al Result * CT brain without contrast (01/24/2023) Anatomical Region Laterality Modality Neuro, Head, Head and Neck, Neuro Covera N/A Computed Tomography us Scanning Provider External IMG CT ORDERABLES Fin al Result documented in this encounter Visit Diagnoses Not on filedocumented in this encounter Additional Health Concerns Assessment Noted Time PHQ-9 Depression Total Score: 0 11/14/19 23 4:41 PM EDT documented as of this encounter Care Teams Mooner Relationship Specialty Start Date End Date Marshal Addison MD [address] [facility] [address] PCP - General Internal Medicine 10/29/24 documented as of this encounter
--- OUTSIDE RECORDS SUMMARY | 2025-01-13 16:23 | XMS_ITS | Encounter Summary ---
Author Organization [facility] Address [address] [place] [address] Care Team Providers Care Remote Sensing Technologist Name Role Phone Rigoberto Hernandez MD Primary Care Provider [phone] Encounter Details Date Type Department Care Team (Late st Contact Info) Description 12/25/2022 Lab Requisition [facility] [address] [place] [phone] Linda Aggarwal MD [address] [place] [address] Social History Tobacco Use Types Packs/Day Years Used Date Smoking Tobacco: Never Assessed Sex and Gender Information Value Date Recorded Sex Assigned at Not on file Gender Identity Not on file Sexual Orientation Not on file documented as of this encounter Plan of Treatment Not on file documented as of this encounter Procedures Procedure Name Priority Date/Time Associated Diagnosis Comments B-TYPE NATRIURETIC PEPTIDE Routine 12/25/2022 5:33 AM EDT BASIC METABOLIC PANEL Routine 12/25/2022 5:33 AM EDT CBC Routine 12/25/2022 1:00 AM EDT URINALYSIS Routine 12/24/2022 10:20 PM EDT URINE CULTURE Routine 12/24/2022 10:20 PM EDT documented in this encounter Results * (ABNORMAL) B-type natriuretic peptide (12/25/2022 5:33 AM EDT) BNP 1,854(H) 0 - 100 pg/mL 12/25/2022 8:38 AM EDT [facility] ([facility]) Blood Venous blood specimen / Unknown Venipuncture / Unknown 12/25/2022 5:33 AM EDT 12/25/2022 7:31 AM EDT Linda Aggarwal MD LAB BLOOD ORDERAB LES [facility] ([facility]) [address] [place] [address] * (ABNORMAL) Basic metabolic panel (12/25/2022 5:33 AM EDT) Sodium 138 136 - 145 mmol/L 12/25/2022 10:06 AM T [facility] ([facility]) Potassium 5.3(H) 3.5 - 5.1 mmol/L 12/25/2022 10:06 AM [facility] ([facility]) Comment:M-CHEMISTRY SPECIMEN MODERATELY HEMOLYZED RESULTS MAY NOT BE ACCURATE Chloride 106 98 - 107 mmol/L 12/25/2022 10:06 AM T [facility] ([facility]) CO2 22 21 - 31 mmol/L 12/25/2022 10:06 AM [facility] ([facility]) BUN 14 7 - 25 mg/dL 12/25/2022 10:06 AM [facility] ([facility]) Creatinine 0.77 0.60 - 1.20 mg/dL 12/25/2022 10:06 AM [facility] ([facility]) Glucose 48(LL) 70 - 100 mg/dL 12/25/2022 10:06 AM T [facility] ([facility]) Calcium 8.0(L) 8.6 - 10.3 mg/dL 12/25/2022 10:06 AM [facility] ([facility]) Anion Gap 15 7 - 20 mmol/L 12/25/2022 10:06 AM [facility] ([facility]) eGFR 75.1 >60.0 mL/min/1. 73m*2 12/25/2022 10:06 AM [facility] ([facility]) Comment:[facility] s estimated glomerular filtration rate (eGFR) [...] any one group of individuals. BUN/Creatinine Ratio 18.2 12/10 10:06 AM EDT [facility] ([facility]) Blood Venous blood specimen / Unknown Venipuncture / Unknown 12/25/2022 5:33 AM EDT 12/25/2022 7:31 AM EDT Linda Aggarwal MD LAB BLOOD ORDERAB LES [facility]) [address] [place] [address] * (ABNORMAL) CBC (12/25/2022 1:00 AM EDT) Auto WBC 9.86 4.00 - 10.60 10*3/uL 12/25/2022 10:39 AM EDT [facility] ([facility]) RBC 4.85 3.80 - 5.00 10*6/uL 12/25/2022 10:39 AM EDT [facility] ([facility]) Hemoglobin 14.0 12.0 - 15.0 g/dL 12/25/2022 10:39 AM EDT [facility] ([facility]) Hematocrit 45.0 36.0 - 48.0 % 12/25/2022 10:39 AM EDT [facility] ([facility]) MCV 92.8 82.0 - 98.0 fL 12/25/2022 10:39 AM EDT [facility] ([facility]) MCH 28.9 27.0 - 33.0 pg 12/25/2022 10:39 AM EDT [facility] ([facility]) MCHC 31.1(L) 32.0 - 35.0 g/dL 12/25/2022 10:39 AM EDT [facility] ([facility]) RDW 21.7(H) 11.5 - 15.0 % 12/25/2022 10:39 AM EDT [facility] ([facility]) Platelets 327 150 - 400 10*3/uL 12/25/2022 10:39 AM EDT [facility] ([facility]) Blood Venous blood specimen / Unknown Venipuncture / Unknown 12/25/2022 1:00 AM EDT 12/25/2022 10:26 AM EDT Linda Aggarwal MD LAB BLOOD ORDERAB LES Performing Organization Address City/[facility]/ZIP Co de Phone Number [facility] ([facility]) [address] [place], [place] [id number] * Urine culture, routine (12/24/2022 10:20 PM EDT) Urine Culture <10,000 CFU/ML No Significant Growth 12/27/2022 7:09 AM EDT [facility] ([facility]) Urine Urine specimen obtained by clean catch procedure / Unknown 12/24/2022 10:20 PM EDT 12/25/2022 7:39 AM EDT Linda Aggarwal MD LAB MICROBIOLOGY - GENERAL ORDERABLES Performing Organization Address [facility]/ZIP Co de Phone Number [facility] ([facility]) [address] [place] [address] * (ABNORMAL) Urinalysis (12/24/2022 10:20 PM EDT) Color, Urine Yellow Yellow 12/25/2022 8:06 AM EDT [facility] ([facility]) Clarity, Urine Clear Clear 12/25/2022 8:06 AM EDT [facility] ([facility]) pH, Urine 8.0 5.0 - 8.0 pH 12/25/2022 8:06 AM EDT [facility] ([facility]) Leukocytes, Urine Negative Negative 12/25/2022 8:06 AM EDT [facility] ([facility]) Nitrite, Urine Negative Negative 12/25/2022 8:06 AM EDT [facility] ([facility]) Protein, Urine Negative Negative mg/dL 12/25/2022 8:06 AM EDT [facility] ([facility]) Glucose, Urine Negative Negative mg/dL 12/25/2022 8:06 AM EDT [facility] ([facility]) Bilirubin, Urine Negative Negative 12/25/2022 8:06 AM EDT [facility] ([facility]) Specific [place], Urine 1.009(L) 1.015 - 1.020 12/25/2022 8:06 AM EDT [facility] ([facility]) Ketones, Urine Negative Negative mg/dL 12/25/2022 8:06 AM EDT [facility] ([facility]) Blood, Urine Negative Negative 12/25/2022 8:06 AM EDT [facility] ([facility]) Urine Urine specimen obtained by clean catch procedure / Unknown 12/24/2022 10:20 PM EDT 12/25/2022 7:39 AM EDT Narrative [facility] ([facility]) - 12/25/2022 8:06 AM EDT Microscopics not performed on urines with negative chemical reactions unless requested on original order. 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
--- OUTSIDE RECORDS SUMMARY | 2025-01-13 16:23 | XMS_ITS ---
Author Organization [facility] Care Team Providers Care Expanded Function Dental Assistant Name Role Phone Linda Aggarwal Unavailable Unavailable Rigoberto Hernandez Unavailable Unavailable Whitney Darby Unavailable Unavailable Drain, Ayesha Unavailable Unavailable Allergies and adverse reactions No Known Allergies Care Team Name Role Address Phone Organization Dates Rigoberto Mary PCP [address] [place], [address], [place] (Office[place] : : [facility] 12/14/2022 - 03/05/2023 Linda Aggarwal [address] [place] [address], [address], [place]Office[place] : [facility] 12/14/2022 - 03/05/2023 Whitney Darby [address] [place] [address], [address], [place]Office[place] : : [facility] 12/14/2022 - 03/05/2023 Ayesha Ramirez [address] [place] [address], [place], [address], [place]Office[place] : [facility] 12/14/2022 - 03/05/2023 Immunizations Immunization Status Vaccine Details Vaccine Code CodeSystem Date Notes Influenza cancelled Influenza, split virus, trivalent, injectable, contains preservative 141 CVX created date: 12/17/2022 consent date: 12/17/2022 TB 2 Step Mantoux Skin Test completed tuberculin skin test; unspecified formulation Given 0.1 ml Right Forearm intradermally Step 2 of Multi-step with next step required 98 CVX created date: 12/25/2022 consent date: 12/25/2022 administer ed date: 12/25/2022 TB 2 Step Mantoux Skin Test completed tuberculin skin test; unspecified formulation lotNumber: [id number] expiry: 01/17/2025 Mfg: [employer] Given 0.1 ml Right Forearm intradermally Step 1 of Multi-step with next step required 98 CVX created date: 12/25/2022 consent date: 12/25/2022 administer ed date: 12/25/2022 TB 2 Step Mantoux Skin Test completed tuberculin skin test; unspecified formulation lotNumber: [id number] expiry: 01/17/2025 Mfg: sanofi pasteur Given 0.1 ml Right Forearm intradermally Step 1 of Multi-step with next step required 98 CVX created date: 12/15/2022 consent date: 12/14/2022 administer ed date: 12/15/2022 PCV13 cancelled pneumococcal conjugate vaccine, 13 valent 133 CVX created date: 12/18/2022 consent date: 12/17/2022 SARS-CoV-2 Test (Esteban BinaxNOW Card) completed no vaccine administered lotNumber: [id number] expiry: 06/10/2023 Mfg: Esteban BinaxNOW Card Given in both nostrils 998 CVX created date: 12/21/2022 consent date: 12/21/2022 administer ed date: 12/21/2022 SARS-CoV-2 Test (Esteban BinaxNOW Card) completed no vaccine administered lotNumber: [id number] expiry: 06/10/2023 Mfg: Esteban BinaxNOW Card Given in both nostrils 998 CVX created date: 12/17/2022 consent date: 12/17/2022 administer ed date: 12/17/2022 COVID-19 Moderna Booster cancelled SARS-COV-2 (COVID-19) vaccine, mRNA, spike protein, LNP, preservative free, 100 mcg/0.5mL dose or 50 mcg/0.25mL dose 207 CVX created date: 12/18/2022 consent date: 12/18/2022 Covid Declination 12-18-22 Mental Status Section Date Assessment Total Score Description 03/05/2023 BIMS 15 cognitively int act CAM 0 No delirium ind icated PHQ-9 00 12/27/2022 BIMS 09 moderate cognit noe impairment PHQ-9 03 minimal depress ion Problems Problem # Description Date of onset Resolved Date Code CodeSystem Concern Status 1 OTHER RETENTION OF URINE 023 01/25/[address] completed 2 FRACTURE OF SUPERIOR RIM OF RIGHT PUBIS, SUBSEQUENT ENCOUNTER FOR FRACTURE WITH ROUTINE HEALING [address] active 3 RETENTION OF URINE, UNSPECIFIED [address] active 4 DYSPHAGIA, OROPHARYNGEAL PHASE [address] active 5 URINARY TRACT INFECTION, SITE NOT SPECIFIED [address] active 6 AGE-RELATED OSTEOPOROSIS WITH CURRENT PATHOLOGICAL FRACTURE, VERTEBRA(E), SUBSEQUENT ENCOUNTER FOR FRACTURE WITH ROUTINE HEALING [address] active 7 ATHEROSCLEROTIC HEART DISEASE OF [place] CORONARY ARTERY WITHOUT ANGINA PECTORIS [address] active 8 CHRONIC SYSTOLIC (CONGESTIVE) HEART FAILURE [address] active 9 CONSTIPATION [address] active 10 HISTORY OF FALLING [address] active 11 HYPERTENSIVE HEART DISEASE WITH HEART FAILURE [address] active 12 HYPOTENSION, UNSPECIFIED [address] active 13 MODERATE PROTEIN-CALORIE MALNUTRITION [address] active 14 OTHER SPECIFIED DISEASES OF SPINAL CORD [address] active 15 PERIPHERAL VASCULAR DISEASE, UNSPECIFIED [address] active 16 PLEURAL EFFUSION, NOT ELSEWHERE CLASSIFIED [address] active 17 UNSPECIFIED ATRIAL FIBRILLATION [address] active 18 UNSPECIFIED OSTEOARTHRITIS, UNSPECIFIED SITE [address] active 19 WEDGE COMPRESSION FRACTURE OF T11-T12 VERTEBRA, SUBSEQUENT ENCOUNTER FOR FRACTURE WITH ROUTINE HEALING [address] active 20 WEDGE COMPRESSION FRACTURE OF THIRD LUMBAR VERTEBRA, SUBSEQUENT ENCOUNTER FOR FRACTURE WITH ROUTINE HEALING [address] active Reason for Referral No Reasons for Referral Entered Social History Social History Observation Description Start Date End Date Code Code System Current Smoking Status Tobacco smoking consumption unknown 245733599 SNOMED CT Sex Assigned At Female 1935 74131-1 [facility] Gender Identity Vital Signs Code Code System Vitals Name Values and Units Timing Information 8462-4 [facility] Blood Pressure-Diastolic Value=64 Un its=mmHg 03/05/2023 8480-6 [facility] Blood Pressure-Systolic Urcnz=511 Un its=mmHg 03/05/2023 8310-5 [facility] Body Temperature Value=98.7 Units= F 03/05/2023 8867-4 [facility] Heart rate Value=76.0 Units=/min 19488-0 [facility] Pain Level Value=0.0 03/05/2023 9279-1 [facility] Respiratory Rate Value=18.0 Units=/m in 03/04/2023 72272-0 [facility] O2 % BldC Oximetry Value=95.0 Units= % 03/04/2023 00614-3 [facility] Weight Yntyj=897.4 Units=Lbs 2339-0 [facility] Blood Sugar Cdrma=335.0 Units=mg/dL 01/09/2023 8302-2 [facility] Height Value=64.0 Units=Inches 12/14/2022
--- OUTSIDE RECORDS SUMMARY | 2025-01-13 16:23 | XMS_ITS | Encounter Summary ---
Author Organization [facility] Address [address] [address] Care Team Providers Care Machine Hamper Maker Name Role Phone Rigoberto Hernandez MD Primary Care Provider [phone] Encounter Details Date Type Department Care Team (Late st Contact Info) Description 12/27/2022 Lab Requisition [facility] [address] [place] [phone] Linda Aggarwal MD [address] [place] [id number] Social History Tobacco Use Types Packs/Day Years [...] Associated Diagnosis Comments B-TYPE NATRIURETIC PEPTIDE Routine 12/28/2022 5:15 AM EDT BASIC METABOLIC PANEL Routine 12/28/2022 5:15 AM EDT documented in this encounter Results * (ABNORMAL) B-type natriuretic peptide (12/28/2022 5:15 AM EDT) BNP 1,447(H) 0 - 100 pg/mL 12/28/2022 11:47 AM EDT [facility] ([facility]) Blood Venous blood specimen / Unknown Venipuncture / Unknown 12/28/2022 5:15 AM EDT 12/28/2022 8:08 AM EDT Linda Aggarwal MD LAB BLOOD ORDERAB LES [facility] ([facility]) [address] [place] [address] * (ABNORMAL) Basic metabolic panel (12/28/2022 5:15 AM EDT) Sodium 139 136 - 145 mmol/L 12/28/2022 11:51 AM EDT [facility] ([facility]) Potassium 5.3(H) 3.5 - 5.1 mmol/L 12/28/2022 11:51 AM EDT [facility] ([facility]) Chloride 108(H) 98 - 107 mmol/L 12/28/2022 11:51 AM EDT [facility] ([facility]) CO2 13(LL) 21 - 31 mmol/L 12/28/2022 11:51 AM EDT [facility] ([facility]) BUN 20 7 - 25 mg/dL 12/28/2022 11:51 AM EDT [facility] ([facility]) Creatinine 0.86 0.60 - 1.20 mg/dL 12/28/2022 11:51 AM EDT [facility] ([facility]) Glucose 41(LL) 70 - 100 mg/dL 12/28/2022 11:51 AM EDT [facility] ([facility]) Calcium 8.1(L) 8.6 - 10.3 mg/dL 12/28/2022 11:51 AM EDT [facility] ([facility]) Anion Gap 23(H) 7 - 20 mmol/L 12/28/2022 11:51 AM T [facility] ([facility]) eGFR 65.8 >60.0 mL/min/1. 73m*2 12/28/2022 11:51 AM EDT [facility] ([facility]) Comment:[facility] s estimated glomerular filtration rate (eGFR) [...] any one group of individuals. 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
--- OUTSIDE RECORDS SUMMARY | 2025-01-13 16:23 | XMS_ITS | Encounter Summary ---
Author Organization [employer] [facility] [employer] Address [facility] [id number] [address] [place] [address] Care Team Providers Care Dining Chair Seat Cushion Trimmer Name Role Phone Marshal Addison MD Primary Care Provider [phone] Reason for Visit * Reason Onset Date Comments medication remind 07/19/2021 Encounter Details Date Type Department Care Team (Late st Contact Info) Description 07/19/2021 Telephone [facility] [address] [facility] [address] [place] [id number] Shana Bronson MA medication remind Social History Tobacco Use Types Packs/Day Years [...] PHQ-2 Answer Date Recorded Total Score 0 06/19/2021 Childcare Answer Date Recorded Childcare Unknown 07/31/2020 [...] have Coronavirus / COVID-19? No / Unsure 07/21/2021 4:20 AM EST documented as of this encounter Functional Status documented as of this encounter Miscellaneous Notes * Telephone Encounter - Shana Bronson MA - 07/19/2021 2:43 PM EST Called patient to remind them to bring their most current copy of medication list with them to their appt. Patient verbalizes understanding. documented in this encounter Plan of Treatment Not on file documented as of this encounter Visit Diagnoses Not on filedocumented in this encounter Additional Health Concerns Assessment Noted Time PHQ-9 Depression Total Score: 0 06/19/20 21 11:52 AM EST documented as of this encounter Care Teams Dining Chair Seat Cushion Trimmer Relationship Specialty Start Date End Date Marshal Addison MD [address] [place] [address] PCP - General Internal Medicine 10/29/24 documented as of this encounter
--- OUTSIDE RECORDS SUMMARY | 2025-01-13 16:23 | XMS_ITS | Encounter Summary ---
Author Organization [employer] Address [facility] [id number] [address] [place] [address] Care Team Providers Care Street Commissioner Name Role Phone Marshal Addison MD Primary Care Provider [phone] Encounter Details Date Type Department Care Team (Late Contact Info) Description 10/14/2024 Telephone [facility] [address] [facility] [address] [place] [address] Yuki Burns Social History Tobacco Use Types Packs/Day Years [...] encounter Miscellaneous Notes * Telephone Encounter - Yuki ThompsonKaty - 10/14/2024 2:38 PM EST Attempted to reach patient about scheduling an appt for [facility]. Not able to lvm, phone call just ends documented in this encounter Plan of Treatment Not on file documented as of this encounter Visit Diagnoses Not on filedocumented in this encounter Additional Health Concerns Assessment Noted Time PHQ-9 Depression Total Score: 0 11/14/19 23 4:41 PM EDT documented as of this encounter Care Teams Street Commissioner Relationship Specialty Start Date End Date Marshal Addison MD [address] [place] [address] PCP - General Internal Medicine 10/29/24 documented as of this encounter
--- OUTSIDE RECORDS SUMMARY | 2025-01-13 16:23 | XMS_ITS | Patient Health Record ---
Author Organization [facility] Address [address] [place] [address] Care Team Providers Care Sanitation Superintendent Name Role Phone Hawa Garzon CNP Primary Care Provider Doni borden Allergies No Known Allergies Reason For Referral No Information Social History Tobacco Use: Social History Observation Description Date Details (start date - stop date) Never Smoker NA - NA Tobacco Use/Smoking Question Answer Notes Patient is a nonsmoker Problems Problem Type SNOMED Code ICD Code Onset Dates Problem Status W/U Status Risk Notes Problem Malnutrition of moderate degree (Masters: 60% to less than 75% of standard weight) (71599719) Moderate protein-calorie malnutrition (E44.0) Active confirmed Problem 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) 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) Active confirmed Problem Hypertensive heart failure (47057465) 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) Active confirmed Problem Chronic systolic heart failure (088831389) Chronic systolic (congestive) heart failure (I50.22) Active confirmed Problem Chronic cholecystitis (87175170) Chronic cholecystitis (K81.1) Active confirmed Problem Dyslipidemia (926394530) Dyslipidemia (E78.5) Active confirmed Problem Atrial fibrillation (disorder) (20645891) Afib (I48.91) Active confirmed Problem Peripheral vascular disease (912187776) PVD (peripheral vascular disease) (I73.9) Active confirmed Problem Chronic systolic heart failure (317917353) Chronic systolic (congestive) heart failure (I50.22) Active confirmed Problem [id number] Atrial fibrillation with rapid ventricular response (I48.91) Active confirmed Problem 08873870 Congestive heart failure, unspecified HF chronicity, unspecified heart failure type (I50.9) Active confirmed Plan Of Treatment No Information Insurance Providers Payer Name Payer Address Payer Phone Subscriber Number Group Number Insured Name Patient Relationship to Insured Coverage Start Date Coverage End Date [place] [address] [place] [address] [id number] Rebekah Lei Self - patient is the insured 1 Medical (General) History Surgical History Surgery Date(Month/Year)
--- OUTSIDE RECORDS SUMMARY | 2025-01-13 16:25 | XMS_ITS ---
Author Organization [facility] Care Team Providers Care Boat Puller Name Role Phone Linda Aggarwal Unavailable Unavailable Rigoberto Hernandez Unavailable Unavailable Whitney Darby Unavailable Unavailable Drain, Ayesha Unavailable Unavailable Allergies and adverse reactions No Known Allergies Care Team Name Role Address Phone Organization Dates Rigoberto Mary PCP [address] [place], [address], [place]Office[place] : : [facility] 12/14/2022 - 03/05/2023 Linda Aggarwal [address] [place] [address], [address], [place]Office[place] : [facility] 12/14/2022 - 03/05/2023 Whitney Darby [address] [place] [address], [address], [place]Office[place] : : [facility] 12/14/2022 - 03/05/2023 Ayesha Ramirez [address] [place] [address], [place], [address], [place] (Office): : [facility] 12/14/2022 - 03/05/2023 Immunizations Immunization Status Vaccine [...] completed tuberculin skin test; unspecified formulation lotNumber: [id number] expiry: 01/17/2025 Mfg: [employer] Given 0.1 ml Right Forearm intradermally Step 1 of Multi-step with next step required 98 CVX created date: 12/25/2022 consent date: 12/25/2022 administer ed date: 12/25/2022 TB 2 Step Mantoux Skin Test completed tuberculin skin test; unspecified formulation lotNumber: [id number] expiry: 01/17/2025 Mfg: sanofi pasteur Given 0.1 ml Right Forearm intradermally Step 1 of Multi-step with next step required 98 CVX created date: 12/15/2022 consent date: 12/14/2022 administer ed date: 12/15/2022 PCV13 cancelled pneumococcal conjugate vaccine, 13 valent 133 CVX created date: 12/18/2022 consent date: 12/17/2022 SARS-CoV-2 Test (Esteban BinaxNOW Card) completed no vaccine administered lotNumber: [id number] expiry: 06/10/2023 Mfg: Esteban BinaxNOW Card Given in both nostrils 998 CVX created date: 12/21/2022 consent date: 12/21/2022 administer ed date: 12/21/2022 SARS-CoV-2 Test (Esteban BinaxNOW Card) completed no vaccine administered lotNumber: [id number] expiry: 06/10/2023 Mfg: Esteban BinaxNOW Card Given [...] 1 OTHER RETENTION OF URINE 023 01/25/[address] completed 2 FRACTURE OF SUPERIOR RIM OF RIGHT PUBIS, SUBSEQUENT ENCOUNTER FOR FRACTURE WITH ROUTINE HEALING [address] active 3 RETENTION OF URINE, UNSPECIFIED [address] active 4 DYSPHAGIA, OROPHARYNGEAL PHASE [address] active 5 URINARY TRACT INFECTION, SITE NOT SPECIFIED [address] active 6 AGE-RELATED OSTEOPOROSIS WITH CURRENT PATHOLOGICAL FRACTURE, VERTEBRA(E), SUBSEQUENT ENCOUNTER FOR FRACTURE WITH ROUTINE HEALING [address] active 7 ATHEROSCLEROTIC HEART DISEASE OF [place] CORONARY ARTERY WITHOUT ANGINA PECTORIS [address] active 8 CHRONIC SYSTOLIC (CONGESTIVE) HEART FAILURE [address] active 9 CONSTIPATION [address] active 10 HISTORY OF FALLING [address] active 11 HYPERTENSIVE HEART DISEASE WITH HEART FAILURE [address] active 12 HYPOTENSION, UNSPECIFIED [address] active 13 MODERATE PROTEIN-CALORIE MALNUTRITION [address] active 14 OTHER SPECIFIED DISEASES OF SPINAL CORD [address] active 15 PERIPHERAL VASCULAR DISEASE, UNSPECIFIED [address] active 16 PLEURAL EFFUSION, NOT ELSEWHERE CLASSIFIED [address] active 17 UNSPECIFIED ATRIAL FIBRILLATION [address] active 18 UNSPECIFIED OSTEOARTHRITIS, UNSPECIFIED SITE [address] active 19 WEDGE COMPRESSION FRACTURE OF T11-T12 VERTEBRA, SUBSEQUENT ENCOUNTER FOR FRACTURE WITH ROUTINE HEALING [address] active 20 WEDGE COMPRESSION FRACTURE OF THIRD LUMBAR VERTEBRA, SUBSEQUENT ENCOUNTER FOR FRACTURE WITH ROUTINE HEALING [address] active Reason for Referral No Reasons for Referral Entered Social History Social History Observation Description Start Date End Date Code Code System Current Smoking Status Tobacco smoking consumption unknown 440955485 SNOMED CT Sex Assigned At Female 1935 83335-7 [facility] Gender Identity Vital Signs Code Code System Vitals Name Values and Units Timing Information 8462-4 [facility] Blood Pressure-Diastolic Value=64 Un its=mmHg 03/05/2023 8480-6 [facility] Blood Pressure-Systolic Mmjqx=121 Un its=mmHg 03/05/2023 8310-5 [facility] Body Temperature Value=98.7 Units= F 03/05/2023 8867-4 [facility] Heart rate Value=76.0 Units=/min 04694-8 [facility] Pain Level Value=0.0 03/05/2023 9279-1 [facility] Respiratory Rate Value=18.0 Units=/m in 03/04/2023 71967-0 [facility] O2 % BldC Oximetry Value=95.0 Units= % 03/04/2023 16225-4 [facility] Weight Uxlyp=860.4 Units=Lbs 2339-0 [facility] Blood Sugar Miflh=993.0 Units=mg/dL 01/09/2023 8302-2 [facility] Height Value=64.0 Units=Inches 12/14/2022
--- OUTSIDE RECORDS SUMMARY | 2025-01-13 16:25 | XMS_ITS | Encounter Summary ---
Author Organization [facility] Address [facility] [id number] [address] [place] [address] Care Team Providers Care Personal Development Educator Name Role Phone Marshal Addison MD Primary Care Provider [phone] Encounter Details Date Type Department Care Team (Late Contact Info) Description 12/14/2022 Orders Only [facility] [address] [facility] [address] [place] [address] External, Scanning Provider Social History Tobacco Use [...] Diagnosis Comments XR CHEST 1 VW Routine 12/12/2022 documented in this encounter Results * X-ray chest 1 view (12/12/2022) Anatomical Region Laterality Modality Body, Chest N/A Computed Radiogr aphy us Scanning Provider External IMG DIAGNOSTIC IMAGIN G ORDERABLES Final Result documented in this encounter Visit Diagnoses Not on filedocumented in this encounter Additional Health Concerns Assessment Noted Time PHQ-9 Depression Total Score: 0 11/14/19 23 4:41 PM EDT documented as of this encounter Care Teams Personal Development Educator Relationship Specialty Start Date End Date Marshal Addison MD [address] [place] [address] PCP - General Internal Medicine 10/29/24 documented as of this encounter
== END 2024-05-17 09:36 | disposition home or self-care (01) ==
LOC: LAB 09:35
PROVIDERS: PCP Student in an Organized Health Care Education/Training Program; Visit Provider Student in an Organized Health Care Education/Training Program
DX: Z79.01 Long term (current) use of anticoagulants (principal)
CPT/HCPCS: 36415; 85610

== ENCOUNTER 2025-04-14 17:39 | Outpatient (REF) | payer MEDICARE, MEDICAID, SELFPAY ==
[2025-04-14 18:12] LABS: Hematocrit 38.5 % (36.0-48.0); Hemoglobin 12.6 g/dL (12.0-16.0); Immature Granulocytes Abs Auto 0.03 10^3/uL (0.00-0.03); Immature Granulocytes Pct Auto 0.3 % (0.0-0.5); Lymphocytes Absolute Auto 0.9 10^3/uL (1.2-3.8); Mean Corpuscular HGB Conc 32.7 g/dL (29.9-35.2); Mean Corpuscular Hemoglobin 29.4 pg (26.7-34.0); Mean Corpuscular Volume 89.7 fL (81.0-99.0); Platelet Count 286 10^3/uL (150-450); Red Blood Count 4.29 10^6/uL (4.20-5.40); White Blood Count 9.5 10^3/uL (4.0-11.0)
[2025-04-14 18:57] LABS: Alanine Aminotransferase 20 U/L (14-59); Albumin Globulin Ratio 0.9; Albumin Level 2.8 g/dL (3.4-5.0); Alkaline Phosphatase 72 U/L (46-116); Anion Gap 17.3; Aspartate Amino Transferase 25 U/L (15-37); Calcium 9.9 mg/dL (8.5-10.1); Carbon Dioxide 25.8 mmol/L (21.0-32.0); Chloride 101 mmol/L (98-107); Estimated GFR (African America 26 (>=60 mL/min/1.73m^2); Estimated GFR (Non-African Ame 21 (>=60 mL/min/1.73m^2); Globulin 3.2 g/dL; Glucose 87 mg/dL (74-106); Potassium 5.1 mmol/L (3.5-5.1); Sodium 139 mmol/L (136-145); Total Protein 6.0 g/dL (6.4-8.2)
--- OUTSIDE RECORDS SUMMARY | 2025-04-14 19:43 | XMS_ITS | CCD ---
Author Organization [facility] Inform ion Partnership [facility] Care Team Providers Care Chief Business Officer Name Role Phone Duran Foluso Primary Care Provider ZHEN SOLO Referring Unavailable [...] CLEMONS Consulting Unavailable HAMZAH BRISCOE Consulting Unavailable Alamina BRAND ENGINEER-SPECIAL CLASS WELDER, Foluso Primary Care Provider KELLY ADDISON Primary Care Unavailable BOLA HINTON Consulting Unavailable DEWEY HART Admitting Unavailable DEWEY HART Attending Unavailable Kelly Addison MD Primary Care Provider [phone] LILI GELLER Attending Unavailable KELLY ADDISON Referring Unavailable KELLY ADDISON Primary Care Unavailable KELLY ADDISON Referring Unavailable KELLY ADDISON Primary Care Unavailable Medications Current Medications Medication Drug Class(es) [...] tablet (2 sources) Platelet Aggregation Inhibitor, Nonsteroidal Anti-inflammato ry Drug Start: 03-23-2021 aspirin 81 MG chewable tablet Take 1 tablet by mouth 0 03/23/2021 Active calcium citrate 950 mg oral tablet (2 sources) Start: 07-12-2023 calcium citrate (CALCITRATE) 200 mg (950 mg) tablet Take 2 tablets (400 mg total) by mouth in the morning and 2 tablets (400 mg total) at noon and 2 tablets (400 mg total) in the evening. Take with meals. 30 tablet 07/12/2023 Active cholecalciferol 1.25 mg oral capsule (4 sources) Vitamin D Start: 07-24-2023 take 1 capsule by mouth every week cholecalciferol (VITAMIN D3) 50,000 units capsule Take 1 capsule (50,000 Units total) by mouth once a week. 4 capsule 07/24/2023 Active Start: 07-13-2023 take 1 tablet by angel th in the morning cholecalciferol 2,000 units tablet Take 1 tablet (2,000 Units total) by mouth in the morning. 30 tablet 07/13/2023 Active 0.6 ml enoxaparin sodium 100 mg/ml prefilled syringe (2 sources) Low Molecular Weight Heparin Start: 07-12-2023 inject 50 mg by subcutaneous injection every twelve hours enoxaparin (LOVENOX) 60 mg/0.6 mL syringe Inject 0.5 mL (50 mg total) under the skin every 12 (twelve) hours. 10 mL 07/12/2023 Active Start: 12-09-2022 End: 12-12-2022 inject 40 mg by subcutaneous injection once daily 40 mg, SubCUTAneous, DAILY, First dose on 12/09/22 at 0900, Until Discontinued Indication of Use: Prophylaxis-DVT/PE Administer by deep subCUTAneous injection with pt lying down. Alternate injection sites on abdominal wall. Do not rub site after injection. Check with provider prior to any invasive procedure. 4 ml furosemide 10 mg/ml injection (5 sources) Loop Diuretic Start: 12-10-2022 furosemide (LA SIX) injection 40 mg Start: 12-09-2022 End: 12-10-2022 [...] for use in Patients with CrCl<30ml/min&nbsp ; menthol 0.04 mg/mg topical gel (1 source) menthol (BIOFREEZE, MENTHOL,) 4 % gel Apply 1 Application topically every 6 (six) hours as needed. Active 24 hr metoprolol succinate 25 mg extended release oral tablet (4 sources) beta-Adrenergic Felipe Start: 07-13-2023 take 1 tablet by mouth every twenty-four hours in the morning metoprolol succinate XL (TOPROL XL) 25 mg 24 hr tablet Take 1 tablet (25 mg total) by mouth in the morning. 30 tablet 07/13/2023 Active Start: 11-09-2022 take 25 mg by mouth once daily 25 mg, Oral, DAILY, First dose on 12/09/22 at 2200, Until Discontinued Do not crush or chew. midodrine hydrochloride 10 mg oral tablet (3 [...] 4 mg (1 source) Start: 12-09-2022 ondansetron (ZOFRAN-ODT) disintegrating tablet 4 mg Potassium Chloride (1 source) Start: 12-09-2022 potassium chloride (KLOR-CON M) extended release tablet 40 mEq warfarin sodium 1 mg oral tablet (2 sources) Vitamin K Antagonist Start: 10-31-2024 take 1 tablet by mouth in the evening warfarin (COUMADIN) 1 mg tablet Take 1 tablet (1 mg total) by mouth in the evening. 10/31/2024 Active Start: 07-12-2023 warfarin (COUM TAMARA) 2 mg tablet Daily INR Target INR 2-3 30 tablet 07/12/2023 Active Completed/Discontinued Medications Medication Drug Class(es) Dates Sig [...] 1 tablet by mouth 0 05/21/2022 Active polyethylene glycol 3350 91054 mg powder for oral solution (1 source) Osmotic Laxative Start: 12-09-2022 17 g, Oral, D AILY PRN, Starting on Sat12/09/22 at 0805, Until [...] frequent line interruptions/ long duration, Starting on Fonda 12/09/22 at 0805 For piggyback infusion, administer [...] (2 times per day), First dose on Fonda 12/09/22 at 0900, Until Discontinued For Line [...] needed 10 mL, IntraVENous, PRN, Starting on Fonda 12/09/22 at 0805, Until Discontinued, Line Care, After every IV line use Problems Active Problems Problem Classification Problem Date Documented Da te Episodic/Chronic Abdominal hernia (4 sources) Umbilical hernia without obstruction or gangrene; Translations: [Unspecified abdominal hernia with obstruction, without gangrene] Onset: 01-24-2023 10-29-2024 Episodic Acute myocardial infarction (3 sources) Myocardial infarction; Translations: [Acute myocardial infarction, unspecified] Onset: 05-30-2021 07-21-2021 Chronic Cardiac dysrhythmias (6 sources) Atrial fibrillation with rapid ventricular response; Translations: [Unspecified atrial fibrillation] Onset: 05-29-2021 Chronic Chronic kidney disease (2 sources) Chronic kidney disease stage 3A ; Translations: [Stage 3a chronic kidney disease] Onset: 10-30-2024 Resolved: 10-30-2024 10-30-2024 Chronic Congestive heart failure; nonhypertensive (10 sources) Heart failure, unspecified; Translations: [Chronic systolic heart failure] Onset: 05-30-2021 07-08-2023 Chronic Coronary atherosclerosis and other heart disease (6 sources) Coronary arteriosclerosis; Translations: [Atherosclerotic heart disease of [place] coronary artery without angina pectoris] Onset: 07-19-2021 07-08-2023 Chronic Genitourinary symptoms and ill-defined conditions (1 source) Retention of urine, unspecified; Translations: [Retention of urine, unspecified] Onset: 01-24-2023 Episodic Heart valve disorders (6 sources) Non-rheumatic mitral regurgitation ; Translations: [Nonrheumatic mitral (valve) insufficiency] Onset: 07-19-2021 07-19-2021 Chronic Nutritional deficiencies (3 sources) Malnutrition (calorie); Translations: [Moderate protein-calorie malnutrition] Onset: 08-17-2022 11-06-2022 Chronic Other aftercare (1 source) History of repair of umbilical hernia; Translations: [Encounter for follow-up examination after completed treatment for conditions other than malignant neoplasm] 11-11-2024 Episodic Other aftercare (1 source) Encounter for follow-up examination after completed treatment for conditions other than malignant neoplasm; Translations: [Encounter for follow-up examination after completed treatment for conditions other than malignant neoplasm] Onset: 11-12-2024 Episodic Other fractures (1 source) Compression fracture [...] unspecified; Translations: [Constipation, unspecified] Onset: 01-24-2023 Episodic Pleurisy; pneumothorax; pulmonary collapse (3 sources) Pleural effusion; Translations: [Pleural effusion, not elsewhere classified] Onset: 12-09-2022 Episodic Residual codes; unclassified (3 sources) Edema, generalized; Translations: [Generalized edema] Onset: 12-09-2022 Episodic Residual codes; unclassified (1 source) Pain, unspecified; Translations: [Pain, unspecified] Onset: 01-30-2023 Episodic Unclassified (1 source) ill Onset: 10-29-2024 Unclassified (1 source) Post-op Onset: 11-12-2024 Past or Other Problems Problem Classification Problem Date Documented Date Episodic/Chronic E Codes: Fall (3 sources) Fall; Translations: [Unspecified fall, initial encounter] Onset: 07-08-2023 07-09-2023 Episodic Fracture of neck of femur (hip) (6 sources) Closed intertrochanteric fracture of right femur; Translations: [Displaced intertrochanteric fracture of right femur, initial encounter for closed fracture] Onset: 07-08-2023 07-09-2023 Episodic Mood disorders (3 sources) Mood disorders Onset: 11-13-2022 11-13-2022 Other screening for suspected conditions (not mental disorders or infectious disease) (4 sources) Other specified abnormal findings of blood chemistry; Translations: [Raised cardiac enzyme or marker] Onset: 07-21-2021 07-21-2021 Episodic Residual codes; unclassified (3 sources) Tobacco user; Translations: [Tobacco use] Onset: 07-19-2021 07-19-2021 Episodic Residual codes; unclassified (3 sources) Bilateral lower limb edema; Translations: [Localized edema] Onset: 08-16-2022 08-16-2022 Episodic Respiratory failure; insufficiency; arrest (adult) (3 sources) Acute respiratory failure; Translations: [Acute respiratory failure with hypoxia] Onset: 09-19-2021 Resolved: 09-19-2021 09-19-2021 Episodic Skin and subcutaneous tissue infections (3 sources) Cellulitis of lower leg; Translations: [Cellulitis of left lower limb] Onset: 08-16-2022 08-16-2022 Episodic Spondylosis; intervertebral disc disorders; other back problems (3 sources) Chronic low back pain; Translations: [Lumbago with sciatica, left side] Onset: 07-21-2021 07-21-2021 Episodic Urinary tract infections (4 sources) Urinary tract infection, site not specified; Translations: [Acute cystitis] Onset: 07-21-2021 07-21-2021 Episodic Results Test Name Value Interpretation Reference Range Facility CBC AND AUTO DIFFon 11-01-19 25 ABSOLUTE BASOPHIL 0.1 X10E9/L Normal 0.0-0.2 [facility] Comment on above: Performed By: #### C BCA, CMP, PINR, 25788-8, 33016-3 #### [facility] ([id number]) [address] [place] [address] 10180 ABSOLUTE NEUTROPHIL 10.4 X10E9/L High 1.5-6.6 [facility] Comment on above: Performed By: #### C BCA, CMP, PINR, 12710-1, 11673-2 #### [facility] ([id number]) [address] [place] [address] 38203 Basophils/100 WBC (Bld) 0.6 % Normal [facility] Comment on above: Performed By: #### C BCA, CMP, PINR, 09995-1, 82614-5 #### [facility] ([id number]) [address] [place] [address] 29772 Eosinophils (Bld) [#/Vol] 0.0 10*3/uL Normal 0.0-0.4 [facility] Comment on above: Performed By: #### C BCA, CMP, PINR, 63957-3, 76352-4 #### [facility] ([id number]) [address] [place] [address] 97679 Eosinophils/100 WBC (Bld) 0.3 % Normal [facility] Comment on above: Performed By: #### C BCA, CMP, PINR, 86475-6, 34415-3 #### [facility] ([id number]) [address] [place] [address] 50954 Erythrocyte distribution width (RBC) [Ratio] 16.7 % High 11.5-15.0 [facility] Comment on above: Performed By: #### C BCA, CMP, PINR, 98124-6, 79292-7 #### [facility] ([id number]) [address] [place] [address] 34747 Hematocrit (Bld) [Volume fraction] 35.9 % Normal 35-47 [facility] Comment on above: Performed By: #### C BCA, CMP, PINR, 94774-1, 74007-8 #### [facility] ([id number]) [address] [place] [address] 77926 Hemoglobin (Bld) [Mass/Vol] 11.9 g/dL Normal 11.7-15.5 [facility] Comment on above: Performed By: #### C BCA, CMP, PINR, 37798-4, 65810-8 #### [facility] ([id number]) [address] [place] [address] 59366 Lymphocytes (Bld) [#/Vol] 1.5 10*3/uL Normal 1.0-3.5 [facility] Comment on above: Performed By: #### C BCA, CMP, PINR, 39165-9, 87127-0 #### [facility] ([id number]) [address] [place] [address] 21414 Lymphocytes/100 WBC (Bld) 12.0 % Normal [facility] Comment on above: Performed By: #### C BCA, CMP, PINR, 79945-5, 18042-7 #### [facility] ([id number]) [address] [place] [address] 81774 MCH (RBC) [Entitic mass] 29.7 pg Normal 27-34 [facility] Comment on above: Performed By: #### C BCA, CMP, PINR, 33310-2, 54627-4 #### [facility] ([id number]) [address] [place] [address] 69359 MCHC (RBC) [Mass/Vol] 33.1 g/dL Normal 32-36 [facility] Comment on above: Performed By: #### C BCA, CMP, PINR, 68449-9, 67762-1 #### [facility] ([id number]) [address] [place] [address] 94907 MCV (RBC) [Entitic vol] 90 fL Normal 80-100 [facility] Comment on above: Performed By: #### C BCA, CMP, PINR, 56491-1, 43099-3 #### [facility] ([id number]) [address] [place] [address] 78984 Monocytes (Bld) [#/Vol] 0.8 10*3/uL Normal 0-0.9 [facility] Comment on above: Performed By: #### C BCA, CMP, PINR, 27149-6, 00278-4 #### [facility] ([id number]) [address] [place] [address] 80832 Monocytes/100 WBC (Bld) 5.9 % Normal [facility] Comment on above: Performed By: #### C BCA, CMP, PINR, 40407-2, 15516-7 #### [facility] ([id number]) [address] [place] [address] 76825 Neutrophils/100 WBC (Bld) 81.2 % Normal [facility] Comment on above: Performed By: #### C BCA, CMP, PINR, 12305-9, 25082-8 #### [facility] ([id number]) [address] [place] [address] 02345 Platelet mean volume (Bld) [Entitic vol] 9.3 fL Normal 7-12 [facility] Comment on above: Performed By: #### C BCA, CMP, PINR, 93033-6, 44475-8 #### [facility] ([id number]) [address] [place] [address] 76336 Platelets (Bld) [#/Vol] 270 10*3/uL Normal 150-450 [facility] Comment on above: Performed By: #### C BCA, CMP, PINR, 99712-3, 20236-5 #### [facility] ([id number]) [address] [place] [address] 36223 RBC COUNT 4.00 X10E12/L Normal 3.80-5.20 [facility] Comment on above: Performed By: #### C BCA, CMP, PINR, 01968-1, 39484-9 #### [facility] ([id number]) [address] [place] [address] 18585 WBC (Bld) [#/Vol] 12.8 10*3/uL High 4.0-11.0 [place] Comment on above: Performed By: #### C BCA, CMP, PINR, 16911-7, 40261-2 #### [facility] ([id number]) [address] [place] [address] 65724 COMPREHENSIVE METABOLIC PANE Moe 10-31-2024 Albumin [Mass/Vol] 3.2 g/dL Normal 3.2-5.3 [facility] Comment on above: Performed By: #### C BCA, CMP, PINR, 20573-5, 82888-4 #### [facility] ([id number]) [address] [place] [address] 08126 ALP [Catalytic activity/Vol] 52 U/L Normal 39-130 [facility] Comment on above: Performed By: #### C BCA, CMP, PINR, 50289-5, 14590-2 #### [facility] ([id number]) [address] [place] [address] 76756 ALT [Catalytic activity/Vol] 11 U/L Normal 0-31 [facility] Comment on above: Performed By: #### C BCA, CMP, PINR, 32687-7, 18329-7 #### [facility] ([id number]) [address] [place] [address] 74249 Anion gap [Moles/Vol] 7 mmol/L Normal 5-15 [facility] Comment on above: Performed By: #### C BCA, CMP, PINR, 77473-5, 72669-0 #### [facility] ([id number]) [address] [place] [address] 66305 AST [Catalytic activity/Vol] 17 U/L Normal 0-41 [facility] Comment on above: Performed By: #### C BCA, CMP, PINR, 93991-9, 76901-9 #### [facility] ([id number]) [address] [place] [address] 82124 Bilirubin [Mass/Vol] 0.5 mg/dL Normal 0.3-1.2 [facility] Comment on above: Performed By: #### C BCA, CMP, PINR, 03655-0, 57815-4 #### [facility] ([id number]) [address] [place] [address] 40190 Calcium [Mass/Vol] 8.4 mg/dL Low 8.5-10.5 [facility] Comment on above: Performed By: #### C BCA, CMP, PINR, 07125-7, 41854-1 #### [facility] ([id number]) [address] [place] [address] 19525 Chloride [Moles/Vol] 106 mmol/L Normal 98-109 [facility] Comment on above: Performed By: #### C BCA, CMP, PINR, 34884-3, 52714-2 #### [facility] ([id number]) [address] [place] [address] 55912 CO2 [Moles/Vol] 24 mmol/L Normal 22-32 [facility] Comment on above: Performed By: #### C BCA, CMP, PINR, 10001-4, 20669-4 #### [facility] ([id number]) [address] [place] [address] 06817 Creatinine [Mass/Vol] 1.16 mg/dL High 0.40-1.00 [facility] Comment on above: Result Comment: METH OD TRACEABLE TO IDMS STANDARD Performed By: #### C BCA, CMP, PINR, 48830-9, 24538-1 #### [facility] ([id number]) [address] [place] [address] 17565 GFR/1.73 sq M.predicted among non-blacks MDRD (S/P/Bld) [Vol rate/Area] 45 mL/min/{1.73_m2} Low >59 [facility] Comment on above: Result Comment: Reported eGFR is based on the CKD-EPI 2020 equation that does not use a race coefficient. Performed By: #### C BCA, CMP, PINR, 63546-9, 51953-9 #### [facility] ([id number]) [address] [place] [address] 77428 Glucose [Mass/Vol] 105 mg/dL High 65-99 [facility] Comment on above: Performed By: #### C BCA, CMP, PINR, 08723-3, 62769-4 #### [facility] ([id number]) [address] [place] [address] 31526 Potassium [Moles/Vol] 4.0 mmol/L Normal 3.5-5.0 [facility] Comment on above: Performed By: #### C BCA, CMP, PINR, 36407-3, 00693-5 #### [facility] ([id number]) [address] [place] [address] 47331 Protein [Mass/Vol] 6.2 g/dL Normal 6.0-8.0 [facility] Comment on above: Performed By: #### C BCA, CMP, PINR, 20959-8, 07606-1 #### [facility] ([id number]) [address] [place] [address] 72290 Sodium [Moles/Vol] 137 mmol/L Normal 134-146 [facility] Comment on above: Performed By: #### C BCA, CMP, PINR, 03517-8, 37846-1 #### [facility] ([id number]) [address] [place] [address] 14204 Urea nitrogen [Mass/Vol] 19 mg/dL Normal 5-27 [facility] Comment on above: Performed By: #### C BCA, CMP, PINR, 73914-7, 60843-2 #### [facility] ([id number]) [address] [place] [address] 57594 MAGNESIUMon 10-31-2024 Magnesium [Mass/Vol] 1.8 mg/dL Normal 1.8-2.6 [facility] Comment on above: Performed By: #### C BCA, CMP, PINR, 08736-2, 67241-4 #### [facility] ([id number]) [address] [place] [address] 83506 PROTIME AND INRon 10-31-2024 INR Coag (PPP) [Relative time] 2.5 {INR} High 0.9-1.2 [facility] Comment on above: Performed By: #### C BCA, CMP, PINR, 87114-0, 06675-8 #### [facility] ([id number]) [address] [place] [address] 00917 PT Coag (PPP) [Time] 28.9 s High 9.8-13.2 [facility] Comment on above: Result Comment: NEW REFERENCE RANGE Performed By: #### C BCA, CMP, PINR, 46935-7, 19074-2 #### [facility] ([id number]) [address] [place] [address] 74102 CBC AND AUTO DIFFon 10-31-19 ABSOLUTE BASOPHIL 0.1 X10E9/L Normal 0.0-0.2 [facility] Comment on above: Performed By: #### C VICTORIA, CMP, 44620-1 #### [facility] ([id number]) [address] [place] [address] 70206 ABSOLUTE NEUTROPHIL 12.9 X10E9/L High 1.5-6.6 [facility] Comment on above: Performed By: #### Alcon KESSLER, CMP, 58367-6 #### [facility] ([id number]) [address] [place] [address] 66949 Basophils/100 WBC (Bld) 0.5 % Normal [facility] Comment on above: Performed By: #### C BCA, CMP, 49313-1 #### [facility] ([id number]) [address] [place] [address] 12352 Eosinophils (Bld) [#/Vol] 0.0 10*3/uL Normal 0.0-0.4 [facility] Comment on above: Performed By: #### Alcon BCA, CMP, 88722-4 #### [facility] ([id number]) [address] [place] [address] 45410 Eosinophils/100 WBC (Bld) 0.0 % Normal [facility] Comment on above: Performed By: #### Alcon KESSLER [facility], 81295-5 #### [facility] ([id number]) [address] [place] [address] 61847 Erythrocyte distribution width (RBC) [Ratio] 16.4 % High 11.5-15.0 [facility] Comment on above: Performed By: #### Alcon KESSLER [facility], #### [facility] ([id number]) [address] [place] [address] 87014 Hematocrit (Bld) [Volume fraction] 39.7 % Normal 35-47 [facility] Comment on above: Performed By: #### Alcon KESSLER [facility], #### [facility] ([id number]) [address] [place] [address] 15354 Hemoglobin (Bld) [Mass/Vol] 13.3 g/dL Normal 11.7-15.5 [facility] Comment on above: Performed By: #### Alcon KESSLER [facility], #### [facility] ([id number]) [address] [place] [address] 36196 Lymphocytes (Bld) [#/Vol] 0.5 10*3/uL Low 1.0-3.5 [facility] Comment on above: Performed By: #### Alcon KESSLER CMP, #### [facility] ([id number]) [address] [place] [address] 06847 Lymphocytes/100 WBC (Bld) 3.9 % Normal [facility] Comment on above: Performed By: #### Alcon KESSLER CMP, #### [facility] ([id number]) [address] [place] [address] 67845 MCH (RBC) [Entitic mass] 29.9 pg Normal 27-34 [facility] Comment on above: Performed By: #### C ISIDRO KESSLER, #### [facility] ([id number]) [address] [place] [address] 36014 MCHC (RBC) [Mass/Vol] 33.5 g/dL Normal 32-36 [facility] Comment on above: Performed By: #### Alcon KESSLER CMP, #### [facility] ([id number]) [address] [place] [address] 72612 MCV (RBC) [Entitic vol] 89 fL Normal 80-100 [facility] Comment on above: Performed By: #### Alcon KESSLER CMP, #### [facility] ([id number]) [address] [place] [address] 67589 Monocytes (Bld) [#/Vol] 0.4 10*3/uL Normal 0-0.9 [facility] Comment on above: Performed By: #### Alcon KESSLER CMP, #### [facility] ([id number]) [address] [place] [address] 81010 Monocytes/100 WBC (Bld) 2.6 % Normal [facility] Comment on above: Performed By: #### Alcon KESSLER CMP, #### [facility] ([id number]) [address] [place] [address] 62345 Neutrophils/100 WBC (Bld) 93.0 % Normal [facility] Comment on above: Performed By: #### Alcon KESSLER CMP, #### [facility] ([id number]) [address] [place] [address] 65997 Platelet mean volume (Bld) [Entitic vol] 9.4 fL Normal 7-12 [facility] Comment on above: Performed By: #### Alcon KESSLER CMP, 88313-6 #### [facility] ([id number]) [address] [place] [address] 61986 Platelets (Bld) [#/Vol] 280 10*3/uL Normal 150-450 [facility] Comment on above: Performed By: #### C BCA, CMP, 33731-8 #### [facility] ([id number]) [address] [place] [address] 58150 RBC COUNT 4.45 X10E12/L Normal 3.80-5.20 [facility] Comment on above: Performed By: #### C BCA, CMP, 78008-0 #### [facility] ([id number]) [address] [place] [address] 34006 WBC (Bld) [#/Vol] 13.9 10*3/uL High 4.0-11.0 [place] Comment on above: Performed By: #### C BCA, CMP, 62108-7 #### [facility] ([id number]) [address] [place] [address] 86288 COMPREHENSIVE METABOLIC PANE Moe 10-30-2024 Albumin [Mass/Vol] 3.3 g/dL Normal 3.2-5.3 [facility] Comment on above: Performed By: #### C BCA, CMP, PINR, 37832-3, 47256-7 #### [facility] ([id number]) [address] [place] [address] 86659 ALP [Catalytic activity/Vol] 60 U/L Normal 39-130 [facility] Comment on above: Performed By: #### C BCA, CMP, PINR, [id number], 44786-2 #### [facility] ([id number]) [address] [place] [id number] ALT [Catalytic activity/Vol] 11 U/L Normal 0-31 [facility] Comment on above: Performed By: #### C BCA, CMP, PINR, [id number], 18940-5 #### [facility] ([id number]) [address] [place] [address] 24854 Anion gap [Moles/Vol] 9 mmol/L Normal 5-15 [facility] Comment on above: Performed By: #### C BCA, CMP, PINR, 08511-2, 62112-8 #### [facility] ([id number]) [address] [place] [address] 90475 AST [Catalytic activity/Vol] 22 U/L Normal 0-41 [facility] Comment on above: Performed By: #### C BCA, CMP, PINR, 70073-5, 48684-4 #### [facility] ([id number]) [address] [place] [address] 95015 Bilirubin [Mass/Vol] 0.8 mg/dL Normal 0.3-1.2 [facility] Comment on above: Performed By: #### C BCA, CMP, PINR, 08050-2, 50430-2 #### [facility] ([id number]) [address] [place] [address] 20027 Calcium [Mass/Vol] 8.5 mg/dL Normal 8.5-10.5 [facility] Comment on above: Performed By: #### C BCA, CMP, PINR, 11042-8, 33727-3 #### [facility] ([id number]) [address] [place] [address] 60498 Chloride [Moles/Vol] 101 mmol/L Normal 98-109 [facility] Comment on above: Performed By: #### C BCA, CMP, PINR, 98986-8, 35734-0 #### [facility] ([id number]) [address] [place] [address] 34874 CO2 [Moles/Vol] 25 mmol/L Normal 22-32 [facility] Comment on above: Performed By: #### C BCA, CMP, PINR, 33633-1, 24027-9 #### [facility] ([id number]) [address] [place] [address] 65426 Creatinine [Mass/Vol] 1.08 mg/dL High 0.40-1.00 [facility] Comment on above: Result Comment: METH OD TRACEABLE TO IDMS STANDARD Performed By: #### C BCA, CMP, PINR, 41152-6, 43575-8 #### [facility] ([id number]) [address] [place] [address] 69027 GFR/1.73 sq M.predicted among non-blacks MDRD (S/P/Bld) [Vol rate/Area] 49 mL/min/{1.73_m2} Low >59 [facility] Comment on above: Result Comment: Reported eGFR is based on the CKD-EPI 2020 equation that does not use a race coefficient. Performed By: #### C BCA, CMP, PINR, 42159-8, 87136-2 #### [facility] ([id number]) [address] [place] [address] 44174 Glucose [Mass/Vol] 143 mg/dL High 65-99 [facility] Comment on above: Performed By: #### C BCA, CMP, PINR, 44799-8, 94649-2 #### [facility] ([id number]) [address] [place] [address] 58179 Potassium [Moles/Vol] 4.7 mmol/L Normal 3.5-5.0 [facility] Comment on above: Performed By: #### C BCA, CMP, PINR, 91004-2, 51103-5 #### [facility] ([id number]) [address] [place] [address] 54800 Protein [Mass/Vol] 6.6 g/dL Normal 6.0-8.0 [facility] Comment on above: Performed By: #### C BCA, CMP, PINR, 21775-9, 58933-6 #### [facility] ([id number]) [address] [place] [address] 75204 Sodium [Moles/Vol] 135 mmol/L Normal 134-146 [facility] Comment on above: Performed By: #### C BCA, CMP, PINR, 03531-8, 10437-4 #### [facility] ([id number]) [address] [place] [address] 71719 Urea nitrogen [Mass/Vol] 16 mg/dL Normal 5-27 [facility] Comment on above: Performed By: #### C BCA, CMP, PINR, 29478-9, 19865-5 #### [facility] ([id number]) [address] [place] [address] 29817 MAGNESIUMon 10-30-2024 Magnesium [Mass/Vol] 1.8 mg/dL Normal 1.8-2.6 [facility] Comment on above: Performed By: #### C BCA, CMP, PINR, 06560-2, 07238-8 #### [facility] ([id number]) [address] [place] [address] 45219 CBC AND AUTO DIFFon 20-20 25 ABSOLUTE BASOPHIL 0.1 X10E9/L Normal 0.0-0.2 [facility] Comment on above: Performed By: #### C BCA, CMP, PINR, 22380-1, 51047-5 #### [facility] ([id number]) [address] [place] [address] 88333 ABSOLUTE NEUTROPHIL 9.0 X10E9/L High 1.5-6.6 [facility] Comment on above: Performed By: #### C BCA, CMP, PINR, 80989-9, 14384-5 #### [facility] ([id number]) [address] [place] [address] 84316 Basophils/100 WBC (Bld) 0.8 % Normal [facility] Comment on above: Performed By: #### C BCA, CMP, PINR, 82238-3, 47407-0 #### [facility] ([id number]) [address] [place] [address] 92004 Eosinophils (Bld) [#/Vol] 0.2 10*3/uL Normal 0.0-0.4 [facility] Comment on above: Performed By: #### C BCA, CMP, PINR, 02720-8, 26351-3 #### [facility] ([id number]) [address] [place] [address] 21029 Eosinophils/100 WBC (Bld) 1.5 % Normal [facility] Comment on above: Performed By: #### C BCA, CMP, PINR, 03140-2, 60654-8 #### [facility] ([id number]) [address] [place] [address] 56109 Erythrocyte distribution width (RBC) [Ratio] 16.3 % High 11.5-15.0 [facility] Comment on above: Performed By: #### C BCA, CMP, PINR, 16460-9, 42484-1 #### [facility] ([id number]) [address] [place] [address] 69367 Hematocrit (Bld) [Volume fraction] 39.5 % Normal 35-47 [facility] Comment on above: Performed By: #### C BCA, CMP, PINR, 31322-8, 62814-1 #### [facility] ([id number]) [address] [place] [address] 15559 Hemoglobin (Bld) [Mass/Vol] 13.2 g/dL Normal 11.7-15.5 [facility] Comment on above: Performed By: #### C BCA, CMP, PINR, 25480-0, 76566-0 #### [facility] ([id number]) [address] [place] [address] 52806 Lymphocytes (Bld) [#/Vol] 1.1 10*3/uL Normal 1.0-3.5 [facility] Comment on above: Performed By: #### C BCA, CMP, PINR, 81761-4, 97308-3 #### [facility] ([id number]) [address] [place] [address] 51095 Lymphocytes/100 WBC (Bld) 10.3 % Normal [facility] Comment on above: Performed By: #### C BCA, CMP, PINR, 08356-8, 04740-4 #### [facility] ([id number]) [address] [place] [address] 00096 MCH (RBC) [Entitic mass] 29.8 pg Normal 27-34 [facility] Comment on above: Performed By: #### C BCA, CMP, PINR, 28604-2, 96206-5 #### [facility] ([id number]) [address] [place] [address] 93052 MCHC (RBC) [Mass/Vol] 33.4 g/dL Normal 32-36 [facility] Comment on above: Performed By: #### C BCA, CMP, PINR, 94162-7, 41634-0 #### [facility] ([id number]) [address] [place] [address] 19793 MCV (RBC) [Entitic vol] 89 fL Normal 80-100 [facility] Comment on above: Performed By: #### C BCA, CMP, PINR, 92568-6, 61903-8 #### [facility] ([id number]) [address] [place] [address] 27875 Monocytes (Bld) [#/Vol] 0.6 10*3/uL Normal 0-0.9 [facility] Comment on above: Performed By: #### C BCA, CMP, PINR, 28734-6, 26696-5 #### [facility] ([id number]) [address] [place] [address] 12183 Monocytes/100 WBC (Bld) 5.9 % Normal [facility] Comment on above: Performed By: #### C BCA, CMP, PINR, 54305-8, 67524-7 #### [facility] ([id number]) [address] [place] [address] 74347 Neutrophils/100 WBC (Bld) 81.5 % Normal [facility] Comment on above: Performed By: #### C BCA, CMP, PINR, 22324-1, 54705-5 #### [facility] ([id number]) [address] [place] [address] 52365 Platelet mean volume (Bld) [Entitic vol] 9.0 fL Normal 7-12 [facility] Comment on above: Performed By: #### C BCA, CMP, PINR, 15201-7, 90637-6 #### [facility] ([id number]) [address] [place] [address] 86350 Platelets (Bld) [#/Vol] 271 10*3/uL Normal 150-450 [facility] Comment on above: Performed By: #### C BCA, CMP, PINR, 87271-9, 87052-1 #### [facility] ([id number]) [address] [place] [address] 80345 RBC COUNT 4.43 X10E12/L Normal 3.80-5.20 [facility] Comment on above: Performed By: #### C BCA, CMP, PINR, 13362-7, 68296-5 #### [facility] ([id number]) [address] [place] [address] 21593 WBC (Bld) [#/Vol] 11.0 10*3/uL Normal 4.0-11.0 [place] Comment on above: Performed By: #### C BCA, CMP, PINR, 22385-0, 78957-2 #### [facility] ([id number]) [address] [place] [address] [place] [address] COMPREHENSIVE METABOLIC PANE Moe 10-29-2024 Albumin [Mass/Vol] 3.6 g/dL Normal 3.2-5.3 [facility] Comment on above: Performed By: #### C BCA, CMP, PINR, 20229-2, 65476-6 #### [facility] ([id number]) [address] [place] [address] 27657 ALP [Catalytic activity/Vol] 64 U/L Normal 39-130 [facility] Comment on above: Performed By: #### C BCA, CMP, PINR, 04183-5, 06077-5 #### [facility] ([id number]) [address] [place] [address] 22966 ALT [Catalytic activity/Vol] 10 U/L Normal 0-31 [facility] Comment on above: Performed By: #### C BCA, CMP, PINR, 44959-9, 50704-2 #### [facility] ([id number]) [address] [place] [address] 15038 Anion gap [Moles/Vol] 10 mmol/L Normal 5-15 [facility] Comment on above: Performed By: #### C BCA, CMP, PINR, 31096-8, 37642-5 #### [facility] ([id number]) [address] [place] [address] 19207 AST [Catalytic activity/Vol] 20 U/L Normal 0-41 [facility] Comment on above: Performed By: #### C BCA, CMP, PINR, 01160-7, 21853-9 #### [facility] ([id number]) [address] [place] [address] 30802 Bilirubin [Mass/Vol] 0.7 mg/dL Normal 0.3-1.2 [facility] Comment on above: Performed By: #### C BCA, CMP, PINR, 48155-2, 70868-7 #### [facility] ([id number]) [address] [place] [address] 55413 Calcium [Mass/Vol] 9.1 mg/dL Normal 8.5-10.5 [facility] Comment on above: Performed By: #### C BCA, CMP, PINR, 99474-6, 38159-6 #### [facility] ([id number]) [address] [place] [address] 07971 Chloride [Moles/Vol] 102 mmol/L Normal 98-109 [facility] Comment on above: Performed By: #### C BCA, CMP, PINR, 05221-7, 26910-1 #### [facility] ([id number]) [address] [place] [address] 46949 CO2 [Moles/Vol] 23 mmol/L Normal 22-32 [facility] Comment on above: Performed By: #### C BCA, CMP, PINR, 90361-5, 06623-3 #### [facility] ([id number]) [address] [place] [address] 63061 Creatinine [Mass/Vol] 1.06 mg/dL High 0.40-1.00 [facility] Comment on above: Result Comment: METH OD TRACEABLE TO IDMS STANDARD Performed By: #### C BCA, CMP, PINR, 08318-1, 31506-0 #### [facility] ([id number]) [address] [place] [address] 19986 GFR/1.73 sq M.predicted among non-blacks MDRD (S/P/Bld) [Vol rate/Area] 51 mL/min/{1.73_m2} Low >59 [facility] Comment on above: Result Comment: Reported eGFR is based on the CKD-EPI 2020 equation that does not use a race coefficient. Performed By: #### C BCA, CMP, PINR, 79363-1, 81096-9 #### [facility] ([id number]) [address] [place] [address] 76085 Glucose [Mass/Vol] 174 mg/dL High 65-99 [facility] Comment on above: Performed By: #### C BCA, CMP, PINR, 64825-4, 96990-4 #### [facility] ([id number]) [address] [place] [address] 40017 Potassium [Moles/Vol] 4.3 mmol/L Normal 3.5-5.0 [facility] Comment on above: Performed By: #### C BCA, CMP, PINR, 31534-9, 20479-5 #### [facility] ([id number]) [address] [place] [address] 60694 Protein [Mass/Vol] 7.1 g/dL Normal 6.0-8.0 [facility] Comment on above: Performed By: #### C BCA, CMP, PINR, 30897-3, 50536-4 #### [facility] ([id number]) [address] [place] [address] 44289 Sodium [Moles/Vol] 135 mmol/L Normal 134-146 [facility] Comment on above: Performed By: #### C BCA, CMP, PINR, 69656-4, 08250-9 #### [facility] ([id number]) [address] [place] [address] 48439 Urea nitrogen [Mass/Vol] 16 mg/dL Normal 5-27 [facility] Comment on above: Performed By: #### C BCA, CMP, PINR, 25728-5, 60723-1 #### [facility] ([id number]) [address] [place] [address] ABDOMEN AND PELVIS WO CON Ton 10-29-2024 CT ABDOMEN AND PELVIS WO CONT CT ABDOMEN AND PELVIS WO CONT CT ABDOMEN AND PELVIS WO CONT: 10/29/2024 [...] Julian Ramirez MD on 10/29/2024 9:14 PM Tim Carlson MD have personally reviewed the image(s) and agree with and/or edited the report Finalized by Tim Canela MD on 10/29/2024 9:[address] [facility] Lactate (P mariela) [Moles/Vol]o n 10-29-2024 LACTATE W/REFLEX 1.7 mmol/L Normal 0.4-2.0 [facility] Comment on above: Result Comment: Result did not trigger repeat Lactate, re-order if needed. Performed By: #### 3 2133-1 #### [facility] ([id number]) [address] [place] [address] 72627 Natriuretic peptide B [Mass/ Vol]on 10-29-2024 Natriuretic peptide B (Bld) [Mass/Vol] 629 pg/mL High <100.0 [facility] Comment on above: Performed By: #### C BCA, CMP, PINR, 41377-7, 01784-8 #### [facility] ([id number]) [address] [place] [address] 23845 PROTIME AND INRon 10-29-2024 INR Coag (PPP) [Relative time] 1.4 {INR} High 0.9-1.2 [facility] Comment on above: Performed By: #### C BCA, CMP, PINR, 25594-5, 25117-1 #### [facility] ([id number]) [address] [place] [address] 43208 PT Coag (PPP) [Time] 16.8 s High 9.8-13.2 [facility] Comment on above: Result Comment: NEW REFERENCE RANGE Performed By: #### C BCA, CMP, PINR, 64047-4, 93663-6 #### [facility] ([id number]) [address] [place] [address] 23377 SARS/FLU A+B/RSV by NAAT/Mol ecularon 10-29-2024 SARS/FLU A+B/RSV by NAAT/Molecular FLU A PCR Negative (qualifier value) FLU B PCR Negative (qualifier value) RSV by PCR Negative (qualifier value) SARS CoV 2 Not detected (qualifier value) NOTE The Xpert Xpress SARS-CoV-2/Flu/RSV Plus test [...] operators who are performing tests using either [employer] or [employer] systems and is limited to laboratories that [...] specimen repeat. Fact Sheet for Healthcare Providers: https://www.fda.gov/m edia/387344/download Fact Sheet for Patients: https://www.fda.gov/m edia/195575/download Normal [facility] Comment on above: Performed By: #### C OVFLR #### [facility] ([id number]) [address] [place] [address], [place] [address] URN PARVIN Oliveros 03-20- 2025 BILIRUBIN DEBBIE Negative Normal NEG [facility] Comment on above: Performed By: #### N UM #### [facility] ([id number]) [address] [place] [address] [place] [address] BLOOD/HGB DEBBIE Negative Normal NEG [facility] Comment on above: Performed By: #### N UM #### [facility] ([id number]) [address] [place] [address], [place] [address] GLUCOSE DEBBIE Negative Normal NEG [facility] Comment on above: Performed By: #### N UM #### [facility] ([id number]) [address] [place] [address] [place] [address] KETONES DEBBIE Trace Abnormal NEG [facility] Comment on above: Performed By: #### N UM #### [facility] ([id number]) [address] [place] [address] [place] [address] LEUKOCYTE ESTERASE DEBBIE Trace Abnormal NEG [facility] Comment on above: Performed By: #### N UM #### [facility] ([id number]) [address] [place] [address] [place] [address] NITRITE DEBBIE Negative Normal NEG [facility] Comment on above: Performed By: #### N UM #### [facility] ([id number]) [address] [place] [address] [place] [address] PH DEBBIE 7.0 Normal 5.0-8.5 [facility] Comment on above: Performed By: #### N UM #### [facility] ([id number]) [address] [place] [address], [place] [address] PROTEIN DEBBIE Negative Normal NEG [facility] Comment on above: Performed By: #### N UM #### [facility] ([id number]) [address] [place] [address], [place] [address] SPECIFIC GRAVITY DEBBIE 1.020 Normal 1.003-1.035 [facility] Comment on above: Performed By: #### N UM #### [facility] ([id number]) [address] [place] [address] 42749 UROBILINOGEN DEBBIE 0.2 eu/dL Normal <1.1 [facility] Comment on above: Performed By: #### N UM #### [facility] ([id number]) [address] [place] [address] 65767 aPTT Coag (PPP) [Time]on aPTT Coag (Bld) [Time] 27 s Normal 26-37 [facility] Comment on above: Result Comment: NEW REFERENCE RANGE Performed By: #### C BCA, CMP, PINR, 21496-5, 47076-1 #### [facility] ([id number]) [address] [place] [address] 30044 Prothrombin Timeon INR Coag (PPP) [Relative time] 1.5 {INR} Normal [facility] Comment on above: Order Comment: CALL doctor [id number] tel. [phone], Fax results to [employer] Patient is at: [address] [place] [address] CALL doctor [id number] tel. [phone], Fax results to [employer] [facility] Patient [facility] at: [facility] [address] [place] [address] Performed By: #### P T #### [facility] [address] [place] [address] PT Coag (PPP) [Time] 18.2 s Critically high 12.3-14.9 [facility] Comment on above: Order Comment: CALL doctor [id number] tel. [phone], Fax results to [employer] Patient is at: [address] [place] [address] CALL doctor [id number] tel. [phone], Fax results to [facility] Patient is at: [facility] [address] [facility] [place] [address] Performed By: #### P T #### [facility] [address] [place] [address] XR PELVIS (MIN 3 VIEWS)on XR PELVIS [...] Zhen Solo DO 02/12/23 Final result Normal [facility] CT ABDOMEN PELVIS WO CONTRAS Ton 01-25-2023 [...] Abdifatah Ac MD 01/24/23 Final result Normal [facility] CT HEAD WO CONTRASTon 2022 CT [...] Abdifatah Ac MD 01/24/23 Final result Normal [facility] CT LUMBAR SPINE WO CONTRASTo n [...] Thiago Rosenthal MD 01/24/23 Final result Normal [facility] BASIC METABOLIC PANELon 06-0 -2022 Anion gap [Moles/Vol] 9 mmol/L Normal 7-20 [facility] Comment on above: Performed By: #### L AB15 #### [facility] ([facility]) [address] [facility] [place] [address] Calcium [Mass/Vol] 8.5 mg/dL Low 8.6-10.3 [facility] Comment on above: Performed By: #### L AB15 #### [facility] ([facility]) [address] [place] [address] Chloride [Moles/Vol] 106 mmol/L Normal 98-107 [facility] Comment on above: Performed By: #### L AB15 #### [facility] ([facility]) [address] [place] [address] CO2 [Moles/Vol] 28 mmol/L Normal 21-31 [facility] Comment on above: Performed By: #### L AB15 #### [facility] ([facility]) [address] [place] [address] Creatinine [Mass/Vol] 0.64 mg/dL Normal 0.60-1.20 [facility] Comment on above: Performed By: #### L AB15 #### [facility] ([facility]) [address] [place] [address] GLOMERULAR FILTRATION RATE ML/MIN/1.73 SQ M.PREDICTED 86.0 mL/min/1.73m*2 Normal >60.0 [facility] Comment on above: Result Comment: [facility]???s estimated glomerular filtration rate (eGFR) will [...] individuals. Performed By: #### L AB15 #### [facility] ([facility]) [address] [place] [address] Glucose [Mass/Vol] 78 mg/dL Normal 70-100 [facility] Comment on above: Performed By: #### L AB15 #### [facility] ([facility]) [address] [place] [address] Potassium [Moles/Vol] 4.5 mmol/L Normal 3.5-5.1 [facility] Comment on above: Performed By: #### L AB15 #### [facility] ([facility]) [address] [place] [address] Sodium [Moles/Vol] 138 mmol/L Normal 136-145 [facility] Comment on above: Performed By: #### L AB15 #### [facility] ([facility]) [address] [place] [address] Urea nitrogen [Mass/Vol] 17 mg/dL Normal 7-25 [facility] Comment on above: Performed By: #### L AB15 #### [facility] ([facility]) [address] [place] [address] UREA NITROGEN/CREATININE (MASS RATIO) IN SER/PLAS 26.6 Normal [facility] Comment on above: Performed By: #### L AB15 #### [facility] ([facility]) [address] [place] [address] CBCon 01-16-2023 Erythrocyte distribution width (RBC) [Ratio] 21.6 % High 11.5-15.0 [facility] Comment on above: Performed By: #### L [id number] #### [facility] ([facility]) [address] [place] [address] ERYTHROCYTE MEAN CORPUSCULAR HEMOGLOBIN CONCENTRATION (G/DL) BY AUTOMATED 30.9 g/dL Low 32.0-35.0 [facility] Comment on above: Performed By: #### L [id number] #### [facility] ([facility]) [address] [place] [address] Hematocrit (Bld) [Volume fraction] 37.6 % Normal 36.0-48.0 [facility] Comment on above: Performed By: #### L [id number] #### [facility] ([facility]) [address] [place] [address] Hemoglobin (Bld) [Mass/Vol] 11.6 g/dL Low 12.0-15.0 [facility] Comment on above: Performed By: #### L [id number] #### [facility] ([facility]) [address] [place] [address] MCH (RBC) [Entitic mass] 29.5 pg Normal 27.0-33.0 [facility] Comment on above: Performed By: #### L [id number] #### [facility] ([facility]) [address] [place] [address] MCV (RBC) [Entitic vol] 95.7 fL Normal 82.0-98.0 [facility] Comment on above: Performed By: #### L [id number] #### [facility] ([facility]) [address] [place] [address] PLATELETS (10*3/UL) IN BLOOD AUTOMATED COUNT 313 10*3/uL Normal 150-400 [facility] Comment on above: Performed By: #### L [id number] #### [facility] ([facility]) [address] [place] [address] RBC (Bld) [#/Vol] 3.93 10*6/uL Normal 3.80-5.00 [facility] Comment on above: Performed By: #### L [id number] #### [facility] ([facility]) [address] [place] [address] WBC (Bld) [#/Vol] 7.89 10*3/uL Normal 4.00-10.60 [facility] Comment on above: Performed By: #### L [id number] #### [facility] ([facility]) [address] [place] [address] URINALYSISon 01-15-2023 BILIRUBIN, TOTAL PRESENCE IN URINE Negative Normal Negative [facility] Comment on above: Order Comment: Micro scopics not performed on urines with negative chemical reactions unless requested on original order. Performed By: #### L [id number] #### [facility] ([facility]) [address] [place] [address] Clarity (U) Clear Normal Clear [facility] Comment on above: Order Comment: Micro scopics not performed on urines with negative chemical reactions unless requested on original order. Performed By: #### L [id number] #### [facility] ([facility]) [address] [place] [address] Color (U) Yellow Normal Yellow [facility] Comment on above: Order Comment: Micro scopics not performed on urines with negative chemical reactions unless requested on original order. Performed By: #### L [id number] #### [facility] ([facility]) [address] [place] [address] Glucose (U) [Mass/Vol] Negative Normal Negative [facility] Comment on above: Order Comment: Micro scopics not performed on urines with negative chemical reactions unless requested on original order. Performed By: #### L [id number] #### [facility] ([facility]) [address] [place] [address] HEMOGLOBIN PRESENCE IN URINE Negative Normal Negative [facility] Comment on above: Order Comment: Micro scopics not performed on urines with negative chemical reactions unless requested on original order. Performed By: #### L [id number] #### [facility] ([facility]) [address] [place] [address] Ketones Ql (U) Negative Normal Negative [facility] Comment on above: Order Comment: Micro scopics not performed on urines with negative chemical reactions unless requested on original order. Performed By: #### L [id number] #### [facility] ([facility]) [address] [place] [address] LEUKOCYTE ESTERASE PRESENCE IN URINE BY TEST STRIP Negative Normal Negative [facility] Comment on above: Order Comment: Micro scopics not performed on urines with negative chemical reactions unless requested on original order. Performed By: #### L [id number] #### [facility] ([facility]) [address] [place] [address] NITRITE PRESENCE IN URINE Negative Normal Negative [facility] Comment on above: Order Comment: Micro scopics not performed on urines with negative chemical reactions unless requested on original order. Performed By: #### L [id number] #### [facility] ([facility]) [address] [place] [address] pH (U) 7.0 [pH] Normal 5.0-8.0 [facility] Comment on above: Order Comment: Micro scopics not performed on urines with negative chemical reactions unless requested on original order. Performed By: #### L [id number] #### [facility] ([facility]) [address] [place] [address] Protein (U) [Mass/Vol] Negative Normal Negative [facility] Comment on above: Order Comment: Micro scopics not performed on urines with negative chemical reactions unless requested on original order. Performed By: #### L [id number] #### [facility] ([facility]) [address] [place] [address] Specific gravity (U) [Rel density] 1.013 Low 1.015-1.020 [facility] Comment on above: Order Comment: Micro scopics not performed on urines with negative chemical reactions unless requested on original order. Performed By: #### L [id number] #### [facility] ([facility]) [address] [place] [address] URINE CULTURE, ROUTINEon Ampicillin [Susc] >8 Resistant [facility] Comment on above: Performed By: #### L [id number] #### [facility] ([facility]) [address] [place] [address] DAPTOmycin [Susc] 2 ug/ml Susceptible [facility] Comment on above: Performed By: #### L [id number] #### [facility] ([facility]) [address] [place] [address] Linezolid [Susc] <=1 Susceptible [facility] Comment on above: Performed By: #### L [id number] #### [facility] ([facility]) [address] [place] [address] Vancomycin [Susc] >16 Resistant [facility] Comment on above: Performed By: #### L [id number] #### [facility] ([facility]) [address] [place] [address] B-TYPE NATRIURETIC PEPTIDEon 12-28-2022 Natriuretic peptide B (Bld) [Mass/Vol] 1447 pg/mL High 0-100 [facility] Comment on above: Performed By: #### L [id number] #### [facility] ([facility]) [address] [place] [address] BASIC METABOLIC PANELon 05- Anion gap [Moles/Vol] 23 mmol/L High 7-20 [facility] Comment on above: Performed By: #### L [id number] #### [facility] ([facility]) [address] [place] [address] Calcium [Mass/Vol] 8.1 mg/dL Low 8.6-10.3 [facility] Comment on above: Performed By: #### L [id number] #### [facility] ([facility]) [address] [place] [address] Chloride [Moles/Vol] 108 mmol/L High 98-107 [facility] Comment on above: Performed By: #### L [id number] #### [facility] ([facility]) [address] [place] [address] CO2 [Moles/Vol] 13 mmol/L Invalid Interpretation Code [facility] Comment on above: Performed By: #### L [id number] #### [facility] ([facility]) [address] [place] [address] Creatinine [Mass/Vol] 0.86 mg/dL Normal 0.60-1.20 [facility] Comment on above: Performed By: #### L [id number] #### [facility] ([facility]) [address] [place] [address] GLOMERULAR FILTRATION RATE ML/MIN/1.73 SQ M.PREDICTED 65.8 mL/min/1.73m*2 Normal >60.0 [facility] Comment on above: Result Comment: [facility]???s estimated glomerular filtration rate (eGFR) will [...] individuals. Performed By: #### L [id number] #### [facility] ([facility]) [address] [place] [address] Glucose [Mass/Vol] 41 mg/dL Invalid Interpretation Code 70-100 [facility] Comment on above: Performed By: #### L [id number] #### [facility] ([facility]) [address] [place] [address] Potassium [Moles/Vol] 5.3 mmol/L High 3.5-5.1 [facility] Comment on above: Performed By: #### L [id number] #### [facility] ([facility]) [address] [place] [address] Sodium [Moles/Vol] 139 mmol/L Normal 136-145 [facility] Comment on above: Performed By: #### L [id number] #### [facility] ([facility]) [address] [place] [address] Urea nitrogen [Mass/Vol] 20 mg/dL Normal 7-25 [facility] Comment on above: Performed By: #### L [id number] #### [facility] ([facility]) [address] [place] [address] UREA NITROGEN/CREATININE (MASS RATIO) IN SER/PLAS 23.3 Normal [facility] Comment on above: Performed By: #### L [id number] #### [facility] ([facility]) [address] [place] [address] XR CHEST PORTABLEon 12-27-19 XR CHEST PORTABLE [...] Radha Rizo MD 12/25/22 Final result Normal [facility] B-TYPE NATRIURETIC PEPTIDEon 12-25-2022 Natriuretic peptide B (Bld) [Mass/Vol] 1854 pg/mL High 0-100 [facility] Comment on above: Performed By: #### L [id number] #### [facility] ([facility]) [address] [place] [address] BASIC METABOLIC PANELon 12-10 Anion gap [Moles/Vol] 15 mmol/L Normal 7-20 [facility] Comment on above: Performed By: #### L [id number] #### [facility] ([facility]) [address] [place] [address] Calcium [Mass/Vol] 8.0 mg/dL Low 8.6-10.3 [facility] Comment on above: Performed By: #### L [id number] #### [facility] ([facility]) [address] [place] [address] Chloride [Moles/Vol] 106 mmol/L Normal 98-107 [facility] Comment on above: Performed By: #### L [id number] #### [facility] ([facility]) [address] [place] [address] CO2 [Moles/Vol] 22 mmol/L Normal 21-31 [facility] Comment on above: Performed By: #### L [id number] #### [facility] ([facility]) [address] [place] [address] Creatinine [Mass/Vol] 0.77 mg/dL Normal 0.60-1.20 [facility] Comment on above: Performed By: #### L [id number] #### [facility] ([facility]) [address] [place] [address] GLOMERULAR FILTRATION RATE ML/MIN/1.73 SQ M.PREDICTED 75.1 mL/min/1.73m*2 Normal >60.0 [facility] Comment on above: Result Comment: [facility]???s estimated glomerular filtration rate (eGFR) will [...] individuals. Performed By: #### L [id number] #### [facility] ([facility]) [address] [place] [address] Glucose [Mass/Vol] 48 mg/dL Invalid Interpretation Code 70-100 [facility] Comment on above: Performed By: #### L [id number] #### [facility] ([facility]) [address] [place] [address] Potassium [Moles/Vol] 5.3 mmol/L High 3.5-5.1 [facility] Comment on above: Result Comment: M-CH EMISTRY SPECIMEN MODERATELY HEMOLYZED RESULTS MAY NOT BE ACCURATE Performed By: #### L [id number] #### [facility] ([facility]) [address] [place] [address] Sodium [Moles/Vol] 138 mmol/L Normal 136-145 [facility] Comment on above: Performed By: #### L [id number] #### [facility] ([facility]) [address] [place] [address] Urea nitrogen [Mass/Vol] 14 mg/dL Normal 7-25 [facility] Comment on above: Performed By: #### L [id number] #### [facility] ([facility]) [address] [place] [address] UREA NITROGEN/CREATININE (MASS RATIO) IN SER/PLAS 18.2 Normal [facility] Comment on above: Performed By: #### L [id number] #### [facility] ([facility]) [address] [place] [address] Basic Metabolic Profon 12-25 Anion gap [Moles/Vol] 12 mmol/L Normal 9-17 [facility] Comment on above: Performed By: #### U KYE AGUILERA #### [place] [address] Vp Clinical: Paddy Juares MD Calcium [Mass/Vol] 8.4 mg/dL Low 8.6-10.4 [facility] Comment on above: Performed By: #### U MICAO, UAX #### [place] [address] Vp Clinical: Paddy Juares MD Chloride [Moles/Vol] 103 mmol/L Normal 98-107 [facility] Comment on above: Performed By: #### U MICAO, UAX #### [place] [address] Vp Clinical: Paddy Juares MD CO2 [Moles/Vol] 25 mmol/L Normal 20-31 [facility] Comment on above: Performed By: #### U MICAO, UAX #### [place] [address] Vp Clinical: Paddy Juares MD Creatinine [Mass/Vol] 0.72 mg/dL Normal 0.50-0.90 [facility] Comment on above: Performed By: #### U MICAO, UAX #### [place] [address] Vp Clinical: Paddy Juares MD GFR/1.73 sq M.predicted among non-blacks MDRD (S/P/Bld) [Vol rate/Area] mL/min/{1.73_m2} Normal >60 [facility] Comment on above: Result Comment: These [...] affects renal tubular secretion. Performed By: #### Jonh AGUILERA UAX #### [place] [address] Vp Clinical: Paddy Juares MD Glucose [Mass/Vol] 79 mg/dL Normal 70-99 [facility] Comment on above: Performed By: #### U WILLY UAX #### [place] [address] Vp Clinical: Paddy Juares MD Potassium [Moles/Vol] 3.7 mmol/L Normal 3.7-5.3 [facility] Comment on above: Performed By: #### Jonh AGUILERA UAX #### [place] [address] Vp Clinical: Paddy Juares MD Sodium [Moles/Vol] 140 mmol/L Normal 135-144 [facility] Comment on above: Performed By: #### Jonh AGUILERA UAX #### [place] [address] Vp Clinical: Paddy Juares MD Urea nitrogen [Mass/Vol] 13 mg/dL Normal 8-23 [facility] Comment on above: Performed By: #### U WILLY UAX #### [place] [address] Vp Clinical: Paddy Juares MD Brain Natri. Peptideon 12-25 Natriuretic peptide B (Bld) [Mass/Vol] 8736 pg/mL High <300 [facility] Comment on above: Result Comment: An age-independent cutoff point of 300 pg/ml has a 98% negative predictive value excluding acute heart failure. Performed By: #### U WILLY UAX #### [facility] [address] [place] [address] Vp Clinical: Paddy Juares MD CBCon 12-25-2022 Hemoglobin (Bld) [Mass/Vol] 14.0 g/dL Normal 12.0-16.0 [facility] Comment on above: Performed By: #### L [id number] #### [facility] ([facility]) [address] [place] [address] Performed By: #### Jonh AGUILERA UAX #### [facility] [address] [place] [address] Vp Clinical: Paddy Juares MD Erythrocyte distribution width (RBC) [Ratio] 21.7 % High 11.5-15.0 [facility] Comment on above: Performed By: #### L [id number] #### [facility] ([facility]) [address] [place] [address] ERYTHROCYTE MEAN CORPUSCULAR HEMOGLOBIN CONCENTRATION (G/DL) BY AUTOMATED 31.1 g/dL Low 32.0-35.0 [facility] Comment on above: Performed By: #### L [id number] #### [facility] ([facility]) [address] [place] [address] Hematocrit (Bld) [Volume fraction] 45.0 % Normal 36.0-48.0 [facility] Comment on above: Performed By: #### L [id number] #### [facility] ([facility]) [address] [place] [address] MCH (RBC) [Entitic mass] 28.9 pg Normal 27.0-33.0 [facility] Comment on above: Performed By: #### L [id number] #### [facility] ([facility]) [address] [place] [address] MCV (RBC) [Entitic vol] 92.8 fL Normal 82.0-98.0 [facility] Comment on above: Performed By: #### L [id number] #### [facility] ([facility]) [address] [place] [address] PLATELETS (10*3/UL) IN BLOOD AUTOMATED COUNT 327 10*3/uL Normal 150-400 [facility] Comment on above: Performed By: #### L [id number] #### [facility] ([facility]) [address] [place] [address] RBC (Bld) [#/Vol] 4.85 10*6/uL Normal 3.80-5.00 [facility] Comment on above: Performed By: #### L [id number] #### [facility] ([facility]) [address] [place] [address] WBC (Bld) [#/Vol] 9.86 10*3/uL Normal 4.00-10.60 [facility] Comment on above: Performed By: #### L [id number] #### [facility] ([facility]) [address] [place] [address] CBC with Diffon 12-25-2022 Abs. Basophil 0.00 k/uL Normal 0.0-0.2 [facility] Comment on above: Performed By: #### Jonh AGUILERA UAX #### [place] [address] Vp Clinical: Paddy Juares MD Abs.Neutrophil (Seg) 9.63 k/uL High 1.8-7.7 [facility] Comment on above: Performed By: #### U WILLY UAX #### [place] [address] Vp Clinical: Paddy Juares MD Basophils/100 WBC (Bld) 0 % Normal 0-2 [facility] Comment on above: Performed By: #### U WILLY UAX #### [place] [address] Vp Clinical: Paddy Juares MD Eosinophils (Bld) [#/Vol] 0.00 10*3/uL Normal 0.0-0.4 [facility] Comment on above: Performed By: #### U MICAO, UAX #### [place] [address] Vp Clinical: Paddy Juares MD Eosinophils/100 WBC (Bld) 0 % Low 1-4 [facility] Comment on above: Performed By: #### U MICAO, UAX #### [place] [address] Vp Clinical: Paddy Juares MD Lymphocytes (Bld) [#/Vol] 0.32 10*3/uL Low 1.0-4.8 [facility] Comment on above: Performed By: #### U MAILEO, UAX #### [place] [address] Vp Clinical: Paddy Juares MD Lymphocytes/100 WBC (Bld) 3 % Low 24-44 [facility] Comment on above: Performed By: #### U WILLY, UAX #### [place] [address] Vp Clinical: Paddy Juares MD Monocytes (Bld) [#/Vol] 0.75 10*3/uL Normal 0.1-0.8 [facility] Comment on above: Performed By: #### U MAILEO, UAX #### [place] [address] Vp Clinical: Paddy Juares MD Monocytes/100 WBC (Bld) 7 % Normal 1-7 [facility] Comment on above: Performed By: #### U MICAO, UAX #### [place] [address] Vp Clinical: Paddy Juares MD Morphology Juan Manuel (Bld) [Interp] ANISOCYTOSIS PRESENT Normal [facility] Comment on above: Performed By: #### U MAILEO, UAX #### [place] [address] Vp Clinical: Paddy Juares MD Neutrophil (Seg) 90 % High 36-66 [facility] Comment on above: Performed By: #### U WILLY, UAX #### [place] [address] Vp Clinical: Paddy Juares MD Erythrocyte distribution width (RBC) [Ratio] 23.0 % High 12.5-15.4 [facility] Comment on above: Performed By: #### U WILLY, UAX #### [place] [address] Vp Clinical: Paddy Juares MD Hematocrit (Bld) [Volume fraction] 44.7 % Normal 36-46 [facility] Comment on above: Performed By: #### U WILLY, UAX #### [place] [address] Vp Clinical: Paddy Juares MD MCH (RBC) [Entitic mass] 29.1 pg Normal 26-34 [facility] Comment on above: Performed By: #### U MAILEO, UAX #### [place] [address] Vp Clinical: Paddy Juares MD MCHC (RBC) [Mass/Vol] 31.3 g/dL Normal 31-37 [facility] Comment on above: Performed By: #### U MICAO, UAX #### [place] [address] Vp Clinical: Paddy Juares MD MCV (RBC) [Entitic vol] 92.9 fL Normal 80-100 [facility] Comment on above: Performed By: #### U MICAO, UAX #### [place] [address] Vp Clinical: Paddy Juares MD Platelet mean volume (Bld) [Entitic vol] 10.5 fL Normal 8.0-14.0 [facility] Comment on above: Performed By: #### U MAILEO, UAX #### [place] [address] Vp Clinical: Paddy Juares MD Platelets (Bld) [#/Vol] 289 10*3/uL Normal 140-450 [facility] Comment on above: Performed By: #### U MAILEO, UAX #### [place] [address] Vp Clinical: Paddy Juares MD RBC (Bld) [#/Vol] 4.81 10*6/uL Normal 4.0-5.2 [facility] Comment on above: Performed By: #### U MICAO, UAX #### [place] [address] Vp Clinical: Paddy Juares MD WBC (Bld) [#/Vol] 10.7 10*3/uL Normal 3.5-11.0 [facility] Comment on above: Performed By: #### U MICAO, UAX #### [place] [id number] Vp Clinical: Paddy Juares MD Specimen Rejectionon 023 Reason for rejection Unable to perform testing: Specimen quantity not sufficient. Normal [facility] Comment on above: Performed By: #### U MAILEO, UAX #### [address] [address] Vp Clinical: Paddy Juares MD Source of sample .BLOOD Normal [facility] Comment on above: Performed By: #### U MICAO, UAX #### [address] [address] Vp Clinical: Paddy Juares MD Test ordered BMP TROPI BNP Normal [facility] Comment on above: Performed By: #### U MAILEO, UAX #### [address] [address] Vp Clinical: Paddy Juares MD Troponinon 12-25-2022 Troponin, High Sens 51 ng/L High 0-14 [facility] Comment on above: Result Comment: High Sensitivity Troponin values cannot be compared with other Troponin methodologies. Performed By: #### T ROPI #### [address] [address] Vp Clinical: Paddy Juares MD Troponin, High Sens 50 ng/L High 0-14 [facility] Comment on above: Result Comment: High Sensitivity Troponin values cannot be compared with other Troponin methodologies. Performed By: #### U MICAO, UAX #### [address] [address] Vp Clinical: Paddy Juares MD UA w/Reflex Cultureon 2022 Bilirubin, SemiQt,Ur Negative Normal NEG [facility] Comment on above: Performed By: #### U MICAO, UAX #### [address], [place] [id number] Vp Clinical: Paddy Juares MD Blood, Urine Negative Normal NEG [facility] Comment on above: Performed By: #### U MICAO, UAX #### [address] [id number] Vp Clinical: Paddy Juares MD Clarity (U) Clear Normal CLEAR [facility] Comment on above: Performed By: #### U MICAO, UAX #### [address] [id number] Vp Clinical: Paddy Juares MD Color (U) Yellow Normal YEL [facility] Comment on above: Performed By: #### U MICAO, UAX #### [place] [address] Vp Clinical: Paddy Juares MD Glucose Ql (U) Negative Normal NEG [facility] Comment on above: Performed By: #### U MICAO, UAX #### [address] [id number] Vp Clinical: Paddy Juares MD Ketones Ql (U) Negative Normal NEG [facility] Comment on above: Performed By: #### U MICAO, UAX #### [address] [id number] Vp Clinical: Paddy Juares MD Leukocyte esterase Test strip Ql (U) Negative Normal NEG [facility] Comment on above: Performed By: #### U MICAO, UAX #### [address] [id number] Vp Clinical: Paddy Juares MD Nitrite,Ur Positive Abnormal NEG [facility] Comment on above: Performed By: #### U MICAO, UAX #### [place] [address] Vp Clinical: Paddy Juares MD PH,Ur 8.0 Normal 5.0-8.0 [facility] Comment on above: Performed By: #### U MICAO, UAX #### [place] [address] Vp Clinical: Paddy Juares MD Protein Ql (U) Negative Normal NEG [facility] Comment on above: Performed By: #### U MICAO, UAX #### [place] [address] Vp Clinical: Paddy Juares MD Spec. [place],Ur 1.015 Normal 1.005-1.030 [facility] Comment on above: Performed By: #### U MICAO, UAX #### [place] [address] Vp Clinical: Paddy Juares MD Urobilinogen,Ur Normal Normal NORM [facility] Comment on above: Performed By: #### U MICAO, UAX #### [place] [address] Vp Clinical: Paddy Juares MD URINALYSISon 12-25-2022 BILIRUBIN, TOTAL PRESENCE IN URINE Negative Normal Negative [facility] Comment on above: Order Comment: Micro scopics not performed on urines with negative chemical reactions unless requested on original order. Performed By: #### L [id number] #### [facility] ([facility]) [address] [place] [address] Clarity (U) Clear Normal Clear [facility] Comment on above: Order Comment: Micro scopics not performed on urines with negative chemical reactions unless requested on original order. Performed By: #### L [id number] #### [facility] ([facility]) [address] [place] [address] Color (U) Yellow Normal Yellow [facility] Comment on above: Order Comment: Micro scopics not performed on urines with negative chemical reactions unless requested on original order. Performed By: #### L [id number] #### [facility] ([facility]) [address] [place] [address] Glucose (U) [Mass/Vol] Negative Normal Negative [facility] Comment on above: Order Comment: Micro scopics not performed on urines with negative chemical reactions unless requested on original order. Performed By: #### L [id number] #### [facility] ([facility]) [address] [place] [address] HEMOGLOBIN PRESENCE IN URINE Negative Normal Negative [facility] Comment on above: Order Comment: Micro scopics not performed on urines with negative chemical reactions unless requested on original order. Performed By: #### L [id number] #### [facility] ([facility]) [address] [place] [address] Ketones Ql (U) Negative Normal Negative [facility] Comment on above: Order Comment: Micro scopics not performed on urines with negative chemical reactions unless requested on original order. Performed By: #### L [id number] #### [facility] ([facility]) [address] [place] [address] LEUKOCYTE ESTERASE PRESENCE IN URINE BY TEST STRIP Negative Normal Negative [facility] Comment on above: Order Comment: Micro scopics not performed on urines with negative chemical reactions unless requested on original order. Performed By: #### L [id number] #### [facility] ([facility]) [address] [place] [address] NITRITE PRESENCE IN URINE Negative Normal Negative [facility] Comment on above: Order Comment: Micro scopics not performed on urines with negative chemical reactions unless requested on original order. Performed By: #### L [id number] #### [facility] ([facility]) [address] [place] [address] pH (U) 8.0 [pH] Normal 5.0-8.0 [facility] Comment on above: Order Comment: Micro scopics not performed on urines with negative chemical reactions unless requested on original order. Performed By: #### L [id number] #### [facility] ([facility]) [address] [place] [address] Protein (U) [Mass/Vol] Negative Normal Negative [facility] Comment on above: Order Comment: Micro scopics not performed on urines with negative chemical reactions unless requested on original order. Performed By: #### L [id number] #### [facility] ([facility]) [address] [place] [address] Specific gravity (U) [Rel density] 1.009 Low 1.015-1.020 [facility] Comment on above: Order Comment: Micro scopics not performed on urines with negative chemical reactions unless requested on original order. Performed By: #### L [id number] #### [facility] ([facility]) [address] [place] [address] URINE CULTURE, ROUTINEon Bacteria identified Cx Nom (U) <10,000 CFU/ML No Significant Growth Normal [facility] Comment on above: Performed By: #### L [id number] #### [facility] ([facility]) [address] [place] [address] Urinalysis,Microon 3 Bacteria MANY Abnormal NONE [facility] Comment on above: Performed By: #### U WILLY UAX #### [address] [address] Vp Clinical: Paddy Juares MD Epithelial cells LM Ql (Urine sed) 0 TO 2 Normal 0-5 [facility] Comment on above: Performed By: #### U WILLY UAX #### [address] [address] Vp Clinical: Paddy Juares MD Other Observations Utilizing a urinalysis as the only screening method to exclude a potential Abnormal NREQ [facility] Comment on above: Result Comment: urop athogen can be unreliable in many patient populations. Rapid screening tests are less sensitive than culture and if UTI is a clinical possibility, culture should be considered despite a negative urinalysis. Performed By: #### U WILLY, UAX #### [facility] [address] [place], [place] [id number] Vp Clinical: Paddy Juares MD Urine RBC's 0 TO 2 Normal 0-2 [facility] Comment on above: Performed By: #### Jonh AGUILERA UAX #### [address] [id number] Vp Clinical: Paddy Juares MD Urine WBC's 0 TO 2 Normal 0-5 [facility] Comment on above: Performed By: #### Jonh AGUILERA UAX #### [address] [id number] Vp Clinical: Paddy Juares MD BASIC METABOLIC PANELon 05-0 Anion gap [Moles/Vol] 9 mmol/L Normal 7-20 [facility] Comment on above: Performed By: #### L [id number] #### [facility] ([facility]) [address] [place] [address] Calcium [Mass/Vol] 7.5 mg/dL Low 8.6-10.3 [facility] Comment on above: Performed By: #### L [id number] #### [facility] ([facility]) [address] [place] [address] Chloride [Moles/Vol] 101 mmol/L Normal 98-107 [facility] Comment on above: Performed By: #### L [id number] #### [facility] ([facility]) [address] [place] [address] CO2 [Moles/Vol] 36 mmol/L High 21-31 [facility] Comment on above: Performed By: #### L [id number] #### [facility] ([facility]) [address] [place] [address] Creatinine [Mass/Vol] 0.83 mg/dL Normal 0.60-1.20 [facility] Comment on above: Performed By: #### L [id number] #### [facility] ([facility]) [address] [place] [address] GLOMERULAR FILTRATION RATE ML/MIN/1.73 SQ M.PREDICTED 68.6 mL/min/1.73m*2 Normal >60.0 [facility] Comment on above: Result Comment: [facility]???s estimated glomerular filtration rate (eGFR) will [...] individuals. Performed By: #### L [id number] #### [facility] ([facility]) [address] [place] [address] Glucose [Mass/Vol] 136 mg/dL High 70-100 [facility] Comment on above: Performed By: #### L [id number] #### [facility] ([facility]) [address] [place] [address] Potassium [Moles/Vol] 3.3 mmol/L Low 3.5-5.1 [facility] Comment on above: Performed By: #### L [id number] #### [facility] ([facility]) [address] [place] [address] Sodium [Moles/Vol] 143 mmol/L Normal 136-145 [facility] Comment on above: Performed By: #### L [id number] #### [facility] ([facility]) [address] [place] [address] Urea nitrogen [Mass/Vol] 17 mg/dL Normal 7-25 [facility] Comment on above: Performed By: #### L [id number] #### [facility] ([facility]) [address] [place] [address] UREA NITROGEN/CREATININE (MASS RATIO) IN SER/PLAS 20.5 Normal [facility] Comment on above: Performed By: #### L [id number] #### [facility] ([facility]) [address] [place] [address] CBCon 12-17-2022 Erythrocyte distribution width (RBC) [Ratio] 20.5 % High 11.5-15.0 [facility] Comment on above: Performed By: #### L [id number] #### [facility] ([facility]) [address] [place] [address] ERYTHROCYTE MEAN CORPUSCULAR HEMOGLOBIN CONCENTRATION (G/DL) BY AUTOMATED 29.4 g/dL Low 32.0-35.0 [facility] Comment on above: Performed By: #### L [id number] #### [facility] ([facility]) [address] [place] [address] Hematocrit (Bld) [Volume fraction] 43.6 % Normal 36.0-48.0 [facility] Comment on above: Performed By: #### L [id number] #### [facility] ([facility]) [address] [place] [address] Hemoglobin (Bld) [Mass/Vol] 12.8 g/dL Normal 12.0-15.0 [facility] Comment on above: Performed By: #### L [id number] #### [facility] ([facility]) [address] [place] [address] MCH (RBC) [Entitic mass] 28.1 pg Normal 27.0-33.0 [facility] Comment on above: Performed By: #### L [id number] #### [facility] ([facility]) [address] [place] [address] MCV (RBC) [Entitic vol] 95.6 fL Normal 82.0-98.0 [facility] Comment on above: Performed By: #### L [id number] #### [facility] ([facility]) [address] [place] [address] PLATELETS (10*3/UL) IN BLOOD AUTOMATED COUNT 210 10*3/uL Normal 150-400 [facility] Comment on above: Performed By: #### L [id number] #### [facility] ([facility]) [address] [place] [address] RBC (Bld) [#/Vol] 4.56 10*6/uL Normal 3.80-5.00 [facility] Comment on above: Performed By: #### L [id number] #### [facility] ([facility]) [address] [place] [address] WBC (Bld) [#/Vol] 6.10 10*3/uL Normal 4.00-10.60 [facility] Comment on above: Performed By: #### L [id number] #### [facility] ([facility]) [address] [place] [address] DIGOXIN LEVELon 12-17-2022 DIGOXIN (NG/ML) IN SER/PLAS 1.3 ng/mL Normal 0.7-2 [facility] Comment on above: Performed By: #### L [id number] #### [facility] ([facility]) [address] [place] [address] EKG Rhythm Stripon 3 [facility] Lactate Dehydrogenaseon LDH [Catalytic activity/Vol] 418 U/L High 135-214 [facility] Comment on above: Performed By: #### L D #### [facility] [employer] [address] [place] [address] Vp Clinical: Rogelio Franks MD #### TROPI, BMP, PT, TP #### [facility] [address] Vp Clinical: Paddy Juares MD Cholesterol in LDL [Mass/Vol] 418 U/L High 135 - 214 U/L [facility] Interpretation and review of laboratory results Abnormal [facility] EKG Rhythm Stripon 3 [facility] No Panel Informationon 12-13 Successful ultrasoun d guided thoracentesis. [facility] Nilo Muro MD - 12/13/2022 [...] chest with one percent lidocaine. A 5 Tunisian Yueh needle was advanced into the pleural [...] was removed. IMPRESSION: Successful ultrasound guided thoracentesis. [facility] [employer] Work Phone: Radiology Study observation (narrative) [facility] [employer] Work Phone: No Panel InformationOrdered By: Nilo Rwals on 12-13-2022 [facility] Work Phone: Protein, Totalon 12-13-2022 Protein [Mass/Vol] 5.7 g/dL Low 6.4-8.3 [facility] Comment on above: Performed By: #### L D #### [facility] [employer] [facility] [place] [id number] Vp Clinical: Rogelio Franks MD #### TROPI, BMP, PT, TP #### [address] [address] Vp Clinical: Paddy Juares MD Interpretation and review of laboratory results Abnormal [facility] Protein [Mass/Vol] 5.7 g/dL Low 6.4 - 8.3 g/dL [facility] Lactate, Sepsison 12-12-2022 Lactic Acid, Sepsis 2.1 mmol/L High 0.5-1.9 [facility] Comment on above: Performed By: #### Jonh AGUILERA UAX #### [address] [address] Vp Clinical: Paddy Juares MD Interpretation and review of laboratory results Abnormal [facility] Lactic Acid, Sepsis 2.1 mmol/L High 0.5 - 1. 9 mmol/L [facility] Lactic Acid, Sepsis 2.9 mmol/L High 0.5-1.9 [facility] Comment on above: Performed By: #### Jonh AGUILERA UAX #### [address] [address] Vp Clinical: Paddy Juares MD Interpretation and review of laboratory results Abnormal [facility] Lactic Acid, Sepsis 2.9 mmol/L High 0.5 - 1. 9 mmol/L [facility] Microscopic Urinalysison Bacteria, UA MANY Abnormal None [facility] Epithelial Cells UA TOO NUMEROUS TO COUNT [facility] Interpretation and review of laboratory results Abnormal [facility] Other Observations UA Utilizing a urinalysis as the only screening method to exclude a potential uropathogen can be unreliable in many patient populations. Rapid screening tests are less sensitive than culture and if UTI is a clinical possibility, culture should be considered despite a negative urinalysis. Abnormal NOT REQ. [facility] RBC clumps Auto (Urine sed) [#/Area] 0 TO 2 [facility] WBC, UA 0 TO 2 [facility] UA w/Reflex Cultureon 2022 Bilirubin, SemiQt,Ur Negative Normal NEG [facility] Comment on above: Performed By: #### U AX, UMICAO #### [place] [address] Vp Clinical: Paddy Juares MD Blood, Urine Negative Normal NEG [facility] Comment on above: Performed By: #### U AX, UMICAO #### [place] [address] Vp Clinical: Paddy Juares MD Clarity (U) Cloudy Abnormal CLEAR [facility] Comment on above: Performed By: #### U AX, UMICAO #### [place] [address] Vp Clinical: Paddy Juares MD Color (U) Yellow Normal YEL [facility] Comment on above: Performed By: #### U AX, UMICAO #### [place] [address] Vp Clinical: Paddy Juares MD Glucose Ql (U) Negative Normal NEG [facility] Comment on above: Performed By: #### U AX, UMICAO #### [place] [address] Vp Clinical: Paddy Juares MD Ketones Ql (U) Negative Normal NEG [facility] Comment on above: Performed By: #### U AX, UMICAO #### [place] [address] Vp Clinical: Paddy Juares MD Leukocyte esterase Test strip Ql (U) Negative Normal NEG [facility] Comment on above: Performed By: #### U AX, UMICAO #### [place] [address] Vp Clinical: Paddy Juares MD Nitrite,Ur Negative Normal NEG [facility] Comment on above: Performed By: #### U AX, UMICAO #### [place] [address] Vp Clinical: Paddy Juares MD PH,Ur 7.0 Normal 5.0-8.0 [facility] Comment on above: Performed By: #### U AX, UMICAO #### [place] [address] Vp Clinical: Paddy Juares MD Protein Ql (U) Negative Normal NEG [facility] Comment on above: Performed By: #### U AX, UMICAO #### [place] [address] Vp Clinical: Paddy Juares MD Spec. [place],Ur 1.015 Normal 1.005-1.030 [facility] Comment on above: Performed By: #### U AX, UMICAO #### [address] [address] Vp Clinical: Paddy Juares MD Urobilinogen,Ur Normal Normal NORM [facility] Comment on above: Performed By: #### U FRANKY DAWKINS #### [address] [address] Vp Clinical: Paddy Juares MD Urinalysis with Reflex to Cu ltureon 12-12-2022 Bilirubin Urine Negative NEGATIVE [facility] Color, UA Yellow Yellow [facility] Glucose Auto test strip (U) [Mass/Vol] Negative NEGATIVE [facility] Interpretation and review of laboratory results Abnormal [facility] Ketones (U) [Mass/Vol] Negative NEGATIVE [facility] Leukocyte esterase Auto test strip Ql (U) Negative NEGATIVE [facility] Nitrite Auto test strip Ql (U) Negative NEGATIVE [facility] Protein (U) [Mass/Vol] 7.0 mg/dL 5.0 - 8.0 [facility] Protein (U) [Mass/Vol] Negative NEGATIVE [facility] Specific [place], UA 1.015 1.005 - 1.030 [facility] Turbidity UA Cloudy Abnormal Clear [facility] Urine Hgb Negative NEGATIVE [facility] Urobilinogen, Urine Normal Normal [facility] Urinalysis,Microon 3 Bacteria MANY Abnormal NONE [facility] Comment on above: Performed By: #### U FRANKY DAWKINS #### [address] [address] Vp Clinical: Paddy Juares MD Epithelial cells LM Ql (Urine sed) TOO NUMEROUS TO COUNT Normal 0-5 [facility] Comment on above: Performed By: #### U FRANKY DAWKINS #### [address] [address] Vp Clinical: Paddy Juares MD Other Observations Utilizing a urinalysis as the only screening method to exclude a potential Abnormal NREQ [facility] Comment on above: Result Comment: urop athogen can be unreliable in many patient populations. Rapid screening tests are less sensitive than culture and if UTI is a clinical possibility, culture should be considered despite a negative urinalysis. Performed By: #### U AX, UMICAO #### [facility] [address] [place], [place] [id number] Vp Clinical: Paddy Juares MD Urine RBC's 0 TO 2 Normal 0-2 [facility] Comment on above: Performed By: #### U AX, UMICAO #### [place] [address] Vp Clinical: Paddy Juares MD Urine WBC's 0 TO 2 Normal 0-5 [facility] Comment on above: Performed By: #### U AX, UMICAO #### [address] [id number] Vp Clinical: Paddy Juares MD XR CHEST PORTABLEon 12-13-19 [...] Tim Sánchez MD 12/12/22 Final result Normal [facility] Unchanged chest demonstrating cardiomegaly and right [...] chest demonstrating cardiomegaly and right pleural effusion [employer] Phone: Radiology Study observation (narrative) [employer] Phone: XR CHEST PORTABLEOrdered By: Tim Sánchez on 12-12-2022 [employer] Phone: ECHO Complete 2D W Doppler W ColorOrdered By: Tyrese Clemons on 12-11-2022 Left ventricular Ejection fraction 33 [employer] Phone: LVEF MODALITY ECHO [employer] Phone: [employer] Phone: ECHO Complete 2D W Doppler W Coloron 12-11-2022 [facility] Transthoracic Echocardiography Report (TTE) Patient Name MINARCIN Date of Study 12/10/2022 REBEKAH Date of 1935 Gender Female Age 87 year(s) Race Room Number PB324 Height: 64 inch, 162.56 cm Corporate ID [id number] Weight: 116 pounds, 52.6 kg # Patient Acct [id number] BSA: 1.55 m^2 BMI: 19.91 kg/m^2 # MR # [id number] Skin Washer Samy Man [facility] Interpreting Physician Tyrese Clemons Fellow Referring Nurse Practitioner Interpreting Referring Physician Stephen Cardona Type of Study TTE procedure:2D Echocardiogram, M-Mode, Doppler, Color Doppler. Procedure Date Date: 12/10/2022 Start: 03:57 PM Study Location: [facility] Technical Quality: Adequate visualization Indications:Congestiv e [...] / Result, Unknown Provider - 12/11/2022 [facility] Transthoracic Echocardiography Report (TTE) Patient Name TERESA Date of Study 12/10/2022 REBEKAH Date of 1935 Gender Female Age 87 year(s) Race Room Number PB324 Height: 64 inch, 162.56 cm Corporate ID [id number] Weight: 116 pounds, 52.6 kg # Patient Acct [id number] BSA: 1.55 m^2 BMI: 19.91 kg/m^2 # MR # [id number] Skin Washer Samy Man, [facility] Interpreting Physician Tyrese Clemons Fellow Referring Nurse Practitioner Interpreting Referring Physician Stephen Gamboa Fellow Type of Study TTE procedure:2D Echocardiogram, M-Mode, Doppler, Color Doppler. Procedure Date Date: 12/10/2022 Start: 03:57 PM Study Location: [facility] Technical Quality: Adequate visualization Indications:Congestiv e [...] Gradient: 1.96 mmHg Estimated PASP: 35.46 mmHg [employer] Phone: EKG 12 Leadon 12-11-2022 Atrial Rate 75 BPM [employer] Phone: Q-T Interval 418 ms [employer] Phone: QRS Duration 124 ms [employer] Phone: QTc Calculation (Bazett) 466 ms [employer] Phone: R Dwight 2 degrees [employer] Phone: T Dwight -91 degrees [employer] Phone: Ventricular Rate 75 BPM [employer] Phone: Atrial fibrillation Right bundle branch block T wave abnormality, consider inferolateral ischemia Abnormal ECG When compared with ECG of 08-DEC-2022 21:14, Vent. rate has decreased BY 54 BPM Right bundle branch block is now Present [facility] MUSE Result, Unknown Provider - 12/11/2022 Atrial fibrillation Right bundle branch block T wave abnormality, consider inferolateral ischemia Abnormal ECG When compared with ECG of 08-DEC-2022 21:14, Vent. rate has decreased BY 54 BPM Right bundle branch block is now Present [facility] [employer] Work Phone: [employer] Work Phone: EKG Rhythm Stripon 3 [facility] [email or web address] [facility] FLUORO FOR SURGICAL PROCEDUR ESon 12-11-2022 FLUORO FOR SURGICAL PROCEDURES Radiology exam is complete. No Radiologist dictation. Please follow up with ordering provider. Final result Normal [facility] Radiology exam is complete. No Radiologist dictation. Please follow up with ordering provider. [facility] RIS CONSOLIDATED Basic Metabolic Panelon 05-0 Anion gap [Moles/Vol] 8 mmol/L Low 9 - 17 mmol/L [facility] Calcium [Mass/Vol] 8.4 mg/dL Low 8.6 - 10. 4 mg/dL [facility] Chloride [Moles/Vol] 104 mmol/L 98 - 10 7 mmol/L [facility] CO2 [Moles/Vol] 31 mmol/L 20 - 31 mmol/L [facility] Creatinine [Mass/Vol] 0.99 mg/dL High 0.50 - 0.90 mg/dL [facility] GFR/1.73 sq M.predicted MDRD (S/P/Bld) [Vol rate/Area] 56 mL/min/{1.73_m2} Low - PINF [facility] Comment on above: These results are not [...] 121 mg/dL High 70 - 99 mg/dL [facility] Interpretation and review of laboratory results Abnormal [facility] Potassium [Moles/Vol] 3.8 mmol/L 3.7 - 5.3 mmol/L [facility] Sodium [Moles/Vol] 143 mmol/L 135 - 144 mmol/L [facility] Urea nitrogen [Mass/Vol] 24 mg/dL High 8 - 23 mg/dL [facility] Basic Metabolic Profon 12-10 Anion gap [Moles/Vol] 8 mmol/L Low 9-17 [facility] Comment on above: Performed By: #### L D #### [place] [id number] Vp Clinical: Rogelio Franks MD #### TROPI, BMP, PT, TP #### [address] [address] Vp Clinical: Paddy Juares MD Calcium [Mass/Vol] 8.4 mg/dL Low 8.6-10.4 [facility] Comment on above: Performed By: #### L D #### [place] [id number] Vp Clinical: Rogelio Franks MD #### TROPI, BMP, PT, TP #### [address] [address] Vp Clinical: Paddy Juares MD Chloride [Moles/Vol] 104 mmol/L Normal 98-107 [facility] Comment on above: Performed By: #### L D #### [place] [id number] Vp Clinical: Rogelio Franks MD #### TROPI, BMP, PT, TP #### [address] [address] Vp Clinical: Paddy Juares MD CO2 [Moles/Vol] 31 mmol/L Normal 20-31 [facility] Comment on above: Performed By: #### L D #### [address] [id number] Vp Clinical: Rogelio Franks MD #### TROPI, BMP, PT, TP #### [address] [address] Vp Clinical: Paddy Juares MD Creatinine [Mass/Vol] 0.99 mg/dL High 0.50-0.90 [facility] Comment on above: Performed By: #### L D #### [address] [address] Vp Clinical: Rogelio Franks MD #### TROPI, BMP, PT, TP #### [address] [address] Vp Clinical: Paddy Juares MD GFR/1.73 sq M.predicted among non-blacks MDRD (S/P/Bld) [Vol rate/Area] 56 mL/min/{1.73_m2} Low >60 [facility] Comment on above: Result Comment: These [...] secretion. Performed By: #### L D #### [address] [address] Vp Clinical: Rogelio Franks MD #### TROPI, BMP, PT, TP #### [address] [address] Vp Clinical: Paddy Juares MD Glucose [Mass/Vol] 121 mg/dL High 70-99 [facility] Comment on above: Performed By: #### L D #### [address] [address] Vp Clinical: Rogelio Franks MD #### TROPI, BMP, PT, TP #### [place] [id number] Vp Clinical: Paddy Juares MD Potassium [Moles/Vol] 3.8 mmol/L Normal 3.7-5.3 [facility] Comment on above: Performed By: #### L D #### [address] [id number] Vp Clinical: Rogelio Franks MD #### TROPI, BMP, PT, TP #### [place] [address] Vp Clinical: Paddy Juares MD Sodium [Moles/Vol] 143 mmol/L Normal 135-144 [facility] Comment on above: Performed By: #### L D #### [place] [id number] Vp Clinical: Rogelio Franks MD #### TROPI, BMP, PT, TP #### [place] [id number] Vp Clinical: Paddy Juares MD Urea nitrogen [Mass/Vol] 24 mg/dL High 8-23 [facility] Comment on above: Performed By: #### L D #### [address] [id number] Vp Clinical: Rogelio Franks MD #### TROPI, BMP, PT, TP #### [place] [id number] Vp Clinical: Paddy Juares MD EKG 12 Leadon 12-10-2022 Atrial Rate 131 BPM AKI [employer] Work Phone: Q-T Interval 306 ms [facility] Phone: QRS Duration 114 ms [facility] Phone: QTc Calculation (Bazett) 448 ms [employer] Work Phone: R Dwight 21 degrees [employer] Work Phone: T Dwight -66 degrees [facility] [place] Phone: Ventricular Rate 129 BPM [employer] [place] [employer] Phone: Atrial fibrillation with rapid ventricular response ST & T wave abnormality, consider anterior ischemia Abnormal ECG No previous ECGs available [facility] STV MUSE Result, Unknown Provider - 12/10/2022 Atrial fibrillation with rapid ventricular response ST & T wave abnormality, consider anterior ischemia Abnormal ECG No previous ECGs available [facility] Phone: [facility] Phone: EKG Rhythm Stripon 3 Nuubo MRI LUMBAR SPINE WO CONTRAST on 12-10-2022 [...] Thiago Rosenthal MD 12/10/22 Final result Normal [facility] Mild loss of vertebral body height and superior endplate edema versus inflammation at the L3 level that may represent an acute/subacute compression deformity. Remote compression deformity at L1 and L2. Multilevel degenerative change with foraminal narrowing as described above. [facility] RIS CONSOLIDATED EXAMINATION: MRI OF [...] stenosis. There is severe bilateral foraminal narrowing. [facility] RIS CONSOLIDATED Thiago Rosenthal MD - 12/10/2022 [...] change with foraminal narrowing as described above. [facility] Phone: [facility] Phone: Radiology Study observation (narrative) [facility] Phone: MRI THORACIC SPINE WO CONTRA STon [...] Thiago Rosenthal MD 12/10/22 Final result Normal [facility] Remote compression deformity at T4, T6, T7, T8, T10, T11, L1, and L2. Prominent inferior endplate Schmorl's node at T11 with adjacent edema or inflammation. Multilevel degenerative change without significant canal stenosis or foraminal narrowing. Large right-sided pleural effusion and trace left-sided pleural effusion. [facility] RIS CONSOLIDATED EXAMINATION: MRI OF THE THORACIC SPINE [...] no canal stenosis or significant foraminal narrowing. [facility] RIS CONSOLIDATED Thiago Rosenthal MD - 12/10/2022 [...] pleural effusion and trace left-sided pleural effusion. [employer] Work Phone: Radiology Study observation (narrative) [employer] Work Phone: MRI THORACIC SPINE WO CARMENCITAA Duglased By: Thiago Rosenthal on 12-10-2022 [facility] Work Phone: PTon 12-10-2022 INR Coag (PPP) [Relative time] 1.2 {INR} Normal [facility] Comment on above: Result Comment: Therapeutic Range: Moderate Anticoagulant Intensity: INR = 2.0-3.0 High Anticoagulant Intensity: INR = 2.5-3.5 Performed By: #### L D #### [address] [id number] Vp Clinical: Rogelio Franks MD #### TROPI, BMP, PT, TP #### [address] [address] Vp Clinical: Paddy Juares MD PT Coag (PPP) [Time] 12.5 s Normal 9.4-12.6 [facility] Comment on above: Performed By: #### L D #### [facility] [employer] [address] [place], [place] [id number] Vp Clinical: Rogelio Franks MD #### TROPI, BMP, PT, TP #### [address] [address] Vp Clinical: Paddy Juares MD [facility] 12-10-2022 INR Coag (PPP) [Relative time] 1.2 {INR} [facility] Comment on above: Therapeutic Range: Moderate Anticoagulant Intensity: INR = 2.0-3.0 High Anticoagulant Intensity: INR = 2.5-3.5 PT Coag (PPP) [Time] 12.5 s [facility] Troponinon 12-10-2022 Troponin, High Sens 35 ng/L High 0-14 [facility] Comment on above: Result Comment: High Sensitivity Troponin values cannot be compared with other Troponin methodologies. Performed By: #### L D #### [facility] [address] [place] [address] Vp Clinical: Rogelio Franks MD #### TROPI, BMP, PT, TP #### [facility] [address] [place], [place] [id number] Vp Clinical: Paddy Juares MD Interpretation and review of laboratory results Abnormal [facility] Troponin I.cardiac DL <= 0.01 ng/mL [Mass/Vol] 35 ng/L High 0 - 14 ng/L [facility] Comment on above: High Sensitivity Tro ponin values cannot be compared with other Troponin methodologies. [facility] XR CHEST PORTABLEon 12-11-19 XR CHEST PORTABLE [...] Deuce Dubois MD 12/10/22 Final result Normal [facility] Right pleural effusion with associated compressive atelectasis. Bibasilar opacities, also likely atelectatic. Infiltrate a consideration. Cardiomegaly with venous hypertension but no radiographic CHF. [facility] CONSOLIDATED EXAMINATION: ONE XRAY VIEW OF [...] convex-left curvature thoracic spine and some DJD. [facility] CONSOLIDATED Deuce Dubois MD - 12/10/2022 [...] with venous hypertension but no radiographic CHF. [facility] Phone: Radiology Study observation (narrative) [facility] Phone: XR CHEST PORTABLEOrdered By: Deuce Dubois on 12-10-2022 [facility] Phone: CT LUMBAR SPINE WO CONTRASTo n [...] Tim Bishop MD 12/09/22 Final result Normal [facility] 1. Subacute appearin g fractures involving [...] trace ascites, and at least mild anasarca. [facility] RIS CONSOLIDATED EXAMINATION: CT OF [...] intraperitoneal fluid. At least mild subcutaneous edema. [facility] RIS CONSOLIDATED Tim Bishop MD - 12/09/2022 [...] trace ascites, and at least mild anasarca. [facility] Phone: [facility] Phone: XR LUMBAR SPINE (2-3 VIEWS)o n [...] Tim Bishop MD 12/08/22 Final result Normal [facility] CT LUMBAR SPINE WO CONTRASTo n 12-08-2022 Radiology Study observation (narrative) [facility] Phone: XR LUMBAR SPINE (2-3 VIEWS)o n 12-08-2022 1. Age-indeterminate compression fractures of the L1 and L2 superior endplates. Compression deformities at T10 and T11 are favored to be chronic. Consider further seen with MRI or CT. 2. Severe bony demineralization partially limits evaluation for fractures. 3. Moderate lumbar spine degenerative changes associated with moderate levoscoliosis. [facility] RIS CONSOLIDATED EXAMINATION: 3 XRAY VIEWS OF THE [...] disc disease. Mild to severe facet arthropathy. [facility] Tim Garcia MD - 12/08/2022 EXAMINATION: 3 XRAY VIEWS [...] spine degenerative changes associated with moderate levoscoliosis. [facility] Phone: Radiology Study observation (narrative) [facility] Phone: XR LUMBAR SPINE (2-3 VIEWS)O rdered By: Tim Bishop on 12-08-2022 [employer] Work Phone: Vital Signs Date Time Vital Sign Value Performing Clinician Sheryli corey 11-12-2024 10:52-0400 Body height 152.4 cm Lili Geller APRNAmpli[employer] Work Phone: [employer] [facility] 11-12-2024 10:52-0400 Body mass index (BMI) [Ratio] 22.26 kg/m2 iLli Geller APRNBigTwistSPECIAL CLASS WELDER Work Phone: [employer] [facility] 04-03-2025 10:52-0400 Body weight 51.71 kg Lili Geller BRAND ENGINEER-SPECIAL CLASS WELDER Work Phone: [facility] 11-12-2024 10:52-0400 Diastolic blood pressure 46 mm[Hg] Lili Geller BRAND ENGINEER-SPECIAL CLASS WELDER Work Phone: [facility] 11-12-2024 10:52-0400 Heart rate 104 /min Lili Geller BRAND ENGINEER-SPECIAL CLASS WELDER Work Phone: [facility] 11-12-2024 10:52-0400 Systolic blood pressure 106 mm[Hg] Lili Geller BRAND ENGINEER-SPECIAL CLASS WELDER Work Phone: [facility] 12-14-2022 14:46-0400 Body height 162.6 cm Abdifatah Bridges III, MD Work Phone: [facility] 12-14-2022 08:15-0400 Body temperature 97.3 [degF] Abdifatah Bridges III, MD Work Phone: [employer] 12-14-2022 08:15-0400 Diastolic blood pressure 65 mm[Hg] Abdifatah Bridges III, MD Work Phone: [employer] 12-14-2022 08:15-0400 Heart rate 71 /min Abdifatah Bridges III, MD Work Phone: [employer] 12-14-2022 08:15-0400 Respiratory rate 16 /min Abdifatah Bridges III, MD Work Phone: [employer] 12-14-2022 08:15-0400 SaO2% (BldA) [Mass fraction] 98 % Abdifatah Bridges III, MD Work Phone: [employer] 12-14-2022 08:15-0400 Systolic blood pressure 110 mm[Hg] Abdifatah Bridges III, MD Work Phone: [employer] 12-14-2022 06:00-0400 Body mass index (BMI) [Ratio] 20.06 kg/m2 Abdifatah Bridges III, MD Work Phone: [facility] 12-14-2022 06:00-0400 Body weight 53 kg Abdifatah Bridges III, MD Work Phone: [facility] 12-13-2022 11:54-0400 Diastolic blood pressure 64 mm[Hg] Stv 2 [facility] 12-13-2022 11:54-0400 SaO2% (BldA) [Mass fraction] 100 % Stv 2 [facility] 12-13-2022 11:54-0400 Systolic blood pressure 112 mm[Hg] Stv 2 [facility] Encounters Encounter Date Encounter Type Care Provider Facility Start: 01-28-2025 End: 01-28-[address] [facility] Start: 11-12-2024 End: 11-12-2024 Office outpatient visit 10 minutes Lili A Geller BRAND ENGINEER-SPECIAL CLASS WELDER Work Phone: [facility] Comment on above: Status post umbilica l hernia repair, follow-up exam (Primary Dx) Start: 11-12-2024 End: 11-12-2024 ambulatory [facility] Start: 10-29-2024 Encounter for other preprocedural examination DEWEY DIAZ [facility] Start: 10-29-2024 End: 10-31-2024 Evaluation and management of inpatient [facility] Start: 02-12-2024 End: 02-12-2024 Telephone encounter Anabelle Jordan [facility] Comment on above: AWV Start: 01-30-2023 End: 01-30-2023 ambulatory ZHEN SOLO [facility] Start: 01-24-2023 End: 01-25-2023 Emergency department patient visit [facility] Start: 12-25-2022 End: 12-26-2022 Emergency department patient visit [facility] Start: 12-13-2022 End: 12-16-2022 ambulatory [facility] Start: 12-13-2022 End: 12-15-2022 Subsequent hospital visit by physician Eddy Bi-Plane Rm 2 [facility] Comment on above: Arrived Start: 12-11-2022 Telephone encounter Alaina Jordan [facility] Start: 12-08-2022 End: 12-14-2022 Evaluation and management of inpatient ELOY SULLIVAN [facility] Start: 12-08-2022 End: 12-14-2022 Evaluation and [...] Phone: Start: 12-11-2022 Fluoroscopy during operation Deuce Hollis DO Work Phone: Start: 12-11-2022 End: 12-11-2022 Perq vert agmntj cavity crtj uni/bi cannulj lmbr Deuce Hollis DO Work Phone: Start: 12-11-2022 Rhythm [...] Td Vaccines (2 - Td or Tdap) [facility] Start: 08-15-2032 DTaP/Tdap/Td vaccine (2 - Td or Tdap) DTaP/Tdap/Td vaccine (2 - Td or Tdap) [facility] Start: 11-12-2025 Tobacco Screening Tobacco Screening [facility] Start: 04-12-2025 Influenza vaccination Influenza Vacc ine [facility] Start: 07-12-2024 Adult BMI Screening Adult BMI Screen ing [facility] Start: 07-10-2024 Tobacco Screening Tobacco Screening [facility] Start: 04-12-2024 Influenza vaccination Influenza Vacc ine [facility] Start: 11-14-2023 Depression Screening Depression Scre ening [facility] Start: 04-12-2023 Influenza vaccination Influenza Vacc ine [facility] Start: 03-12-2023 Influenza vaccination Flu vacc ine (Season Ended) [facility] Start: 12-10-2022 Annual Wellness Visi t (AWV) Annual Wellness Visit (AWV) [facility] Start: 2001 Fall Risk Screening Fall Risk Screen ing [facility] Start: 1986 Administration of varicella zoster vaccine Zoster (Shingles) Vaccine (1 of 2) [facility] Start: 1986 Shingles vaccine (1 of 2) [place] gles vaccine (1 of 2) [facility] Start: 1948 Depression Screen Depression Screen [facility] Start: 1942 Pneumococcal 65+ yea rs Vaccine (1 - PCV) Pneumococcal 65+ years Vaccine (1 - PCV) [facility] Start: 1936 COVID-19 Vaccine (#1) COVID-19 Vacci ne (#1) [facility] Start: 1936 Medicare Annual Well ness Visit Medicare Annual Wellness Visit [facility] Start: 1936 Tobacco Counseling Tobacco Counselin g [facility] End: 12-13-2022 Culture, Body Fluid Culture, Body Fluid Microbiology Routine One Time for 1 Occurrences starting 12/13/2022 until 12/13/2022 [facility] Phone: Comment on above: One Time for 1 Occur rences starting 12/13/2022 until 12/13/2022 End: 12-13-2022 Cytology, Non-Council Member Cytology, Non-Council Member Lab Routine One Time for 1 Occurrences starting 12/13/2022 until 12/13/2022 [facility] Phone: Comment on above: One Time for 1 Occur rences starting 12/13/2022 until 12/13/2022 End: 12-13-2022 Glucose, Body Fluid Glucose, Body Fluid Lab Routine One Time for 1 Occurrences starting 12/13/2022 until 12/13/2022 [facility] Phone: Comment on above: One Time for 1 Occur rences starting 12/13/2022 until 12/13/2022 End: 12-11-2022 INITIATE PACU OXYGEN THERAPY PROTOCOL Initiate PACU Oxygen Therapy Protocol Respiratory Care Routine Continuous until discontinued starting 12/11/2022 [facility] Phone: Comment on above: Continuous until dis continued starting 12/11/2022 Intermittent pulse oximetry Pulse Oximetry Spot Check Respiratory Care Routine As Needed until discontinued starting 12/09/2022 [facility] Phone: Comment on above: As Needed until disc ontinued starting 12/09/2022 End: 12-13-2022 Lactate Dehydrogenase, Body Fluid Lactate Dehydrogenase, Body Fluid Lab Routine One Time for 1 Occurrences starting 12/13/2022 until 12/13/2022 [facility] Phone: Comment on above: One Time for 1 Occur rences starting 12/13/2022 until 12/13/2022 Nasal Cannula Oxygen Nasal Cannu la Oxygen Respiratory Care Routine Daily until discontinued starting 12/11/2022 [facility] Phone: Comment on above: Daily until disconti nued starting 12/11/2022 Nasal Cannula Oxygen Nasal Cannu la Oxygen Respiratory Care Routine Daily until discontinued starting 12/12/2022 [facility] Phone: Comment on above: Daily until disconti nued starting 12/12/2022 Oxygen therapy [Mini mum Data Set] Initiate Oxygen Therapy Protocol Respiratory Care Routine As Needed until discontinued starting 12/09/2022 [facility] Phone: Comment on above: As Needed until disc ontinued starting 12/09/2022 Oxygen therapy [Mini mum Data Set] Initiate Oxygen Therapy Protocol Respiratory Care Routine As Needed until discontinued starting 12/11/2022 [facility] Phone: Comment on above: As Needed until disc ontinued starting 12/11/2022 End: 12-13-2022 pH, Body Fluid pH, Body Fluid Lab Routine One Time for 1 Occurrences starting 12/13/2022 until 12/13/2022 [facility] Phone: Comment on above: One Time for 1 Occur rences starting 12/13/2022 until 12/13/2022 End: 12-11-2022 , urine POCT , urine POCT Point of Care Testing Routine One Time for 1 Occurrences starting 12/11/2022 until 12/11/2022 [facility] Phone: Comment on above: One Time for 1 Occur rences starting 12/11/2022 until 12/11/2022 End: 12-13-2022 Protein [Mass/volume] in Serum or Plasma Protein, Total Lab Routine One Time for 1 Occurrences starting 12/13/2022 until 12/13/2022 [facility] Phone: Comment on above: One Time for 1 Occur rences starting 12/13/2022 until 12/13/2022 Immunizations Immunization Date Immunization Notes Care Provider Roland crisostomo 12-24-2022 tuberculin skin test ; unspecified formulation Lili Geller BRAND ENGINEER-SPECIAL CLASS WELDER Work Phone: [employer] 12-14-2022 tuberculin skin test ; unspecified formulation Lili Geller BRAND ENGINEER-SPECIAL CLASS WELDER Work Phone: [employer] [facility] 08-15-2022 tetanus toxoid, redu rakel diphtheria toxoid, and acellular pertussis vaccine, adsorbed Alaina Hurley RN [employer] [facility] Payers Date Payer Category Payer Medicaid MEDICAID [facility] [id number] 2023 Medicaid [id number] 2001 Medicare [id number] 2001 Medicare [id number] 1936 Unknown [id number] 1936 Unknown [id number] 1936 Unknown [id number] 1936 Unknown [id number] 1936 Unknown [id number] 1936 Unknown [id number] 1936 Unknown [id number] 1936 Unknown [id number] Social History Date Type Detail Facility Start: 12-09-2022 End: 11-12-2024 Tobacco smoking status NHIS Smokes tobacco daily [facility] [place] Phone: History of tobacco use Cigarette Smoker [facility] [place] Phone: Start: 09-21-2020 End: 12-09-2022 Cigarettes smoked current (pack per day) - Reported 1 [employer] Work Phone: Start: 12-09-2022 End: 11-12-2024 Tobacco use and exposure Smokeless tobacco non-user [facility] Phone: Start: 1935 Sex Assigned At Not on file [facility] Work Phone: Start: 11-13-2022 End: 11-12-2024 Alcohol intake Lifetime non-drinker (finding) [employer] [facility] Start: 07-31-2020 End: 09-21-2020 Alcohol Use Disorder Identification Test - Consumption [AUDIT-C] [employer] [facility] Work Phone: How often to you hav e a drink containing alcohol? Never [employer] [facility] Work Phone: Average Number of Drinks Not on file [employer] Start: 1935 Sex Assigned At Female [employer] [facility] Start: 07-08-2023 Gender identity Identifies as female gender (finding) [employer] [facility] Start: 07-08-2023 Sexual orientation Heterosexual (finding) [employer] [facility] Start: 10-14-2022 End: 11-13-2022 Exposure to SARS-CoV-2 (event) Not sure [facility] Has the electric, ga s, oil, or water company threatened to shut off services in your home in past 12Mo No [employer] [facility] Start: 03-15-2015 Sex Female (finding) [facility] Procedure Code Equipment Code Equipment Origin al Text Equipment Identifier Dates Cement Bne Hi Vi sc Radiopaque Kyphon Hv-R - [id number] Start: 12-11-2022 Nail Im 170mm 9m m 125d Shrt Cnn Tfn-Adv Lat Rlf Cut Ti Cocr - [id number] Start: 07-10-2023 Blade Im Nl Au 9 0mm 10.35mm Tfn-Adv Hlcl Fem Prox Ti Niobium - [id number] Start: 07-10-2023 Screw Bn 34mm 5m m 4.3mm [facility] Strdr Blnt Tip Ti T25 Ft Strl - [id number] Start: 07-10-2023 Goals Date Patient Goal Desired Activity /State Personal health goal Comment on above: Formatting of this n ote might be different from the original. Evaluation of progress towards goal: Pt's goal is to go to SNF at discharge for short term rehab. - ALBERTINA MARCELO 07/11/23 5:08 PM Personal health goal Comment on above: Formatting of this n ote might be different from the original. Evaluation of progress towards goal: surgery yesterday, feeling much better, less pain Clinical Notes 12-11-2022 to 11-12-2024 Lili Geller APRN-SPECIAL CLASS WELDER - 11/12/2024 11:00 AM EDTTelephone Encounter - Anabelletal Zuniga - 02/12/2024 1:57 PM EDTTelephone Encounter - Anabelle Zuniga - 02/12/2024 1:57 PM EDTDischarge Instr - LORA Note Date & Type Note Facility 11-12-2024 History of Present illness Narrative Subjective Rebekah Lei is a 89 y.o. female status post open repair of incarcerated umbilical hernia on 10/29/2024. She has no concerns. Minimal pain. She states she feels great. She is tolerating oral intake. No nausea vomiting. Had bowel movement this morning. Objective Vitals: 11/12/24 1052 BP: 106/46 Pulse: 104 Physical Exam Constitutional: General: She is not in acute distress. Appearance: Normal appearance. She is not ill-appearing. HENT: Head: Normocephalic and atraumatic. Mouth/Throat: Mouth: Mucous membranes are moist. Eyes: Pupils: Pupils are equal, round, and reactive to light. Cardiovascular: Rate and Rhythm: Normal rate and regular rhythm. Pulmonary: Effort: Pulmonary effort is normal. No respiratory distress. Abdominal: General: There is no distension. Palpations: Abdomen is soft. Tenderness: There is no abdominal tenderness. Comments: Umbilical incision clean, dry and intact. No signs of infection. Healing appropriately. Musculoskeletal: General: Normal range of motion. Comments: Wheelchair Skin: General: Skin is warm and dry. Neurological: Mental Status: She is alert and oriented to person, place, and time. Mental status is at baseline. Assessment Rebekah Lei is a 89 y.o.female postoperative open umbilical hernia repair. Plan Activity restrictions for another month. Follow up as needed. Status post umbilical hernia repair, follow-up exam [Z09] TRENA MARINELLI [facility] General Surgery [place] This note was created with the assistance of a speech recognition program. While intending to generate a timely document that accurately reflects the content of the visit, no guarantee can be provided that every grammatical or spelling mistake has been or will be identified or corrected. Thank you for your understanding. TRENA Marinelli 11/12/24 1102 documented in this encounter [facility] 02-12-2024 Miscellaneous Notes Care Coordination Outreach performed to coordinate overdue appointments, testing, and/or follow-up care: Yes Audit/Outreach Date: February 12, 2024 Reason: Medicare Annual Wellness Visit Method: Telephone Outreach Attempt: First Outcome: Left Message Next PCP Appointment: N/A Tests/Referrals Pended: N/A Resources/Education Provided: Additional Comments: Patient appears due for a Medicare Annual Wellness Visit. (Left message) for patient to contact PCP office to schedule an AWV and letter sent. Please schedule with AWV Nurse or Provider. documented in this encounter [facility] 02-12-2024 Telephone encounter Note Care Coordination Outreach performed to coordinate overdue appointments, testing, and/or follow-up care: Yes Audit/Outreach Date: February 12, 2024 Reason: Medicare Annual Wellness Visit Method: Telephone Outreach Attempt: First Outcome: Left Message Next PCP Appointment: N/A Tests/Referrals Pended: N/A Resources/Education Provided: Additional Comments: Patient appears due for a Medicare Annual Wellness Visit. (Left message) for patient to contact PCP office to schedule an AWV and letter sent. Please schedule with AWV Nurse or Provider. [employer] [facility] 12-14-2022 Hospital Discharge instructions Thomas Chang MD - 12/14/2022 12:07 PM EDT Continuity of Care Form Patient Name: Rebekah Lei : 1935 Admit date: 12/08/2022 Discharge date: [...] Emergency Contact Information Primary Emergency Contact: Klarissa Lei Relation: Child Insights Manager needed? No Secondary Emergency Contact: asaddenilsonjay Relation: Child Past Surgical History: Past Surgical History: Procedure Laterality Date KYPHOSIS SURGERY 12/11/2022 SPINE SURGERY N/A 12/11/2022 T10, T11, L3 KYPHOPLASTY WITH KYPHON performed by Deuce Hollis DO at [facility] Immunization History: There is no immunization history on file for this patient. Active Problems: Patient Active Problem List Diagnosis Code Fracture of lumbar spine without cord injury, closed, initial encounter ([facility]) S32.009A Pleural effusion, right J90 Atrial fibrillation with rapid ventricular response ([facility]) I48.91 Anasarca R60.1 Isolation/Infection: Isolation [...] Assisted Dressing Assisted Toileting Assisted Feeding Independent Residential Air Sealing Technician Independent Med Delivery whole Wound Care Documentation [...] 11 Discharging to Facility/ Agency Name: Facility: [facility] Address: [address] [place] [address] Offset Assistant Press Operator/Guest Service Agent signature: PHYSICIAN SECTION Prognosis: Fair Condition at Discharge: Stable Rehab Potential (if transferring to Rehab): Fair Recommended Labs or Other Treatments After Discharge: PT/OT; follow-up with orthopedic surgery and pulmonology as scheduled. Physician Certification: I certify the above information and transfer of Rebekah Lei is necessary for the continuing treatment of the diagnosis listed and that she requires Correction Facility for greater 30 days. Update Admission H&P: No change in H&P PHYSICIAN SIGNATURE: documented in this encounter [facility] Phone: 12-14-2022 Hospital course Narrative Images from the original note were not included. [facility] Office: [phone] Aditya Zapata DO, Teo Espitia DO, Haroon [...] Gillespie DO, Augustus Pak MD, No Walton, SPECIAL CLASS WELDER, Kendra Ramirez CNP, Aviva Barnett, SPECIAL CLASS WELDER, Hamzah Hartman, SPECIAL CLASS WELDER, Yudith Shell, KIRTI, Karissa Nguyen, SPECIAL CLASS WELDER, Julissa Landis, SPECIAL CLASS WELDER, Genet Vega, SPECIAL CLASS WELDER, Keri Dietz, SPECIAL CLASS WELDER, Shirley Helton, SPECIAL CLASS WELDER, Deuce Guthrie PA-C, Anabelle Mccoy, FISHING GEAR MECHANIC, Aparna Bryant, SPECIAL CLASS WELDER, Rebekah Duran, SPECIAL CLASS WELDER [facility] IN-PATIENT SERVICE [facility] Discharge Summary Patient ID: Rebekah Lei : 1935 ACCOUNT: [id number] Patient's PCP: Hawa Garzon Admit Date: 12/08/2022 [...] Condition: fair Hospital Stay: Hospital Course: Rebekah Lei is a 87 y.o. female with a [...] RDW, PLT, MPV, SEDRATE, CRP, INR, DDIMER, UE9LTFZD, LABABSO in the last 72 hours. Invalid input(s): PT Chemistry:No results for input(s): NA, K, CL, CO2, GLUCOSE, BUN, CREATININE, MG, ANIONGAP, LABGLOM, GFRAA, CALCIUM, CAION, PHOS, PSA, PROBNP, TROPHS, CKTOTAL, CKMB, CKMBINDEX, MYOGLOBIN, DIGOXIN, LACTACIDWB in the last 72 hours.No results for input(s): PROT, LABALBU, LABA1C, L2YASFJ, W8SKWIM, FT4, TSH, AST, ALT, LDH, GGT, ALKPHOS, LABGGT, BILITOT, BILIDIR, AMMONIA, AMYLASE, LIPASE, LACTATE, CHOL, HDL, LDLCHOLESTEROL, CHOLHDLRATIO, TRIG, VLDL, JLN73KB, PHENYTOIN, PHENYF, URICACID, POCGLU in the last 72 hours. ABG:No results found for: POCPH, PHART, PH, POCPCO2, TZH9GOG, PCO2, POCPO2, PO2ART, PO2, POCHCO3, MHI7GJW, HCO3, NBEA, PBEA, BEART, BE, THGBART, THB, YWO8JVV, IFPD6XDZ, D0BUWDAG, O2SAT, FIO2 No results found for: SPECIAL [...] of discharge. Discharge [facility]: [facility] Physician Follow [place]: [place] [address] [facility] [address] Schedule an appointment as soon as possible for a visit in 1 week(s) Hospital follow-up; right-sided pleural effusion Deuce Hollis, DO [address] [facility] [address] Schedule an appointment as soon as possible [...] Your Medications These medications were sent to [address] [phone] - F [id number] [place], [place] [id number] midodrine 10 MG tablet Time spent on discharge is 20 mins in patient examination, evaluation, counseling as well as medication reconciliation, prescriptions for required medications, discharge plan and follow up. Electronically signed by Thomas Chang MD 12/14/2022 9:[address] Hawa Garzon for the opportunity to be involved in this patient's care. documented in this encounter [facility] Phone: 12-13-2022 Note PROCEDURE: ULTRASOUNDGUIDED RIGHT THORACENTESIS [...] chest with one percent lidocaine. A 5 Tunisian Yueh needle was advanced into the pleural [...] by: Nilo Rawls MD 12/13/22 Final result [facility] 12-13-2022 History of Present illness Narrative PULMONARY & CRITICAL CARE MEDICINE PROGRESS NOTE Patient: Rebekah Lei Admit date: 12/08/2022 Primary Care Physician: Hawa [...] Out: 1470 [Urine:1470] Date 12/13/22 - 12/13/22 2359 Shift 2166-3795 2576-1074 1294-8944 24 Hour Total INTAKE P.O.(mL/kg/hr) 50(0.1) 50 I.V.(mL/kg) 10(0.2) 10(0.2) Shift Total(mL/kg) 50(0.9) 10(0.2) 60(1.1) OUTPUT Urine(mL/kg/hr) 320(0.8) 1150 1470 Shift Total(mL/kg) 320(6) 1150(21.7) 1470(27.8) Weight (kg) 52.9 52.9 52.9 52.9 LABORATORY RESULTS: BLOOD GASES: No results for input(s): POCPH, POCPCO2, POCPO2, POCHCO3, LIFV8TXP in the last 72 hours. COMPLETE BLOOD [...] It was my pleasure to evaluate Rebekah Lei today. I would like to thank you [...] not included. [facility] Office: [phone] Aditya Zapata DO, Teo Espitia DO, Haroon [...] [place], [place], Aparna Bryant CNP, Rebekah Duran, SPECIAL CLASS WELDER [facility] IN-PATIENT SERVICE [facility] Progress Note 12/13/2022 10:19 AM Name: Rebekah Lei Acct: [id number] Room: [facility] Day: 4 Admit Date: 12/08/2022 8:59 PM [...] RDW, PLT, MPV, SEDRATE, CRP, INR, DDIMER, WH2EQUVE, LABABSO in the last 72 hours. Invalid input(s): PT Chemistry: No results for input(s): NA, K, CL, CO2, GLUCOSE, BUN, CREATININE, MG, ANIONGAP, LABGLOM, GFRAA, CALCIUM, CAION, PHOS, PSA, PROBNP, TROPHS, CKTOTAL, CKMB, CKMBINDEX, MYOGLOBIN, DIGOXIN, LACTACIDWB in the last 72 hours. No results for input(s): PROT, LABALBU, LABA1C, P8WDOPF, D7MCJAX, FT4, TSH, AST, ALT, LDH, GGT, ALKPHOS, LABGGT, BILITOT, BILIDIR, AMMONIA, AMYLASE, LIPASE, LACTATE, CHOL, HDL, LDLCHOLESTEROL, CHOLHDLRATIO, TRIG, VLDL, WYK08TQ, PHENYTOIN, PHENYF, URICACID, POCGLU in the last 72 hours. ABG:No results found for: POCPH, PHART, PH, POCPCO2, KRW5NDL, PCO2, POCPO2, PO2ART, PO2, POCHCO3, BKT4EHX, HCO3, NBEA, PBEA, BEART, BE, THGBART, THB, XPC4VOD, OZVP6LOO, W0YQSFSC, O2SAT, FIO2 No results found for: SPECIAL [...] spine without cord injury, closed, initial encounter ([facility]) 12/09/2022 Yes Pleural effusion, right 12/09/2022 Yes Atrial fibrillation with rapid ventricular response ([facility]) 12/09/2022 Yes Anasarca 12/09/2022 Yes [...] above Medical Decision Making: Veronica Chang MD 12/13/2022 10:19 AM PULMONARY & CRITICAL CARE MEDICINE PROGRESS NOTE Patient: Rebekah Lei Admit date: 12/08/2022 Primary Care Physician: Hawa [...] [P.O.:150; I.V.:1000] Out: 875 [Urine:875] Date 12/12/22 0000 - 12/12/22 2359 Shift 6635-2331 8336-6387 1238-9826 24 Hour Total INTAKE P.O.(mL/kg/hr) 150(0.3) 150 Shift Total(mL/kg) 150(2.8) 150(2.8) OUTPUT Urine(mL/kg/hr) 525(1.2) 525 Shift Total(mL/kg) 525(9.7) 525(9.7) Weight (kg) 53.9 53.9 53.9 53.9 LABORATORY RESULTS: BLOOD GASES: No results for input(s): POCPH, POCPCO2, POCPO2, POCHCO3, MRSM5FNC in the last 72 hours. COMPLETE BLOOD [...] spine without cord injury, closed, initial encounter ([facility]) Pleural effusion, right Atrial fibrillation with rapid [...] It was my pleasure to evaluate Rebekah Lei today. I would like to thank you [...] not included. [facility] Office: [phone] Aditya Zapata DO, Teo Espitia DO, Haroon [...] CNP, Keri Dietz CNP, Shirley Helton CNP, eDuce Guthrie PA-C, Anabelle [place], [place], Aparna Bryant CNP, Rebekah Duran, CORNELIUS [facility] IN-PATIENT SERVICE [facility] Progress Note 12/12/2022 1:25 PM Name: Rebekah Lei Acct: [id number] Room: Replaced by [facility]/[id number] Day: 3 Admit Date: 12/08/2022 8:59 PM [...] No results for input(s): PROT, LABALBU, LABA1C, Q6UBYVJ, R0XOVLY, FT4, TSH, AST, ALT, LDH, GGT, ALKPHOS, LABGGT, BILITOT, BILIDIR, AMMONIA, AMYLASE, LIPASE, LACTATE, CHOL, HDL, LDLCHOLESTEROL, CHOLHDLRATIO, TRIG, VLDL, XCV17EM, PHENYTOIN, PHENYF, URICACID, POCGLU in the last 72 hours. ABG:No results found for: POCPH, PHART, PH, POCPCO2, CSM6EDI, PCO2, POCPO2, PO2ART, PO2, POCHCO3, XGE3ZQP, HCO3, NBEA, PBEA, BEART, BE, THGBART, THB, LXC3YFE, IDMR7QPW, C3LPGYTW, O2SAT, FIO2 No results found for: SPECIAL [...] spine without cord injury, closed, initial encounter ([facility]) 12/09/2022 Yes Pleural effusion, right 12/09/2022 Yes Atrial fibrillation with rapid ventricular response ([facility]) 12/09/2022 Yes Anasarca 12/09/2022 Yes [...] MD 12/12/2022 1:25 PM Physical Therapy Facility/Department: [facility] ICU Physical Therapy Initial Assessment Name: Rebekah Lei : 1935 Date of Service: 12/12/2022 Chief [...] CAD (coronary artery disease), Chronic atrial fibrillation ([facility]), Chronic CHF (congestive heart failure) ([facility]), Compression fracture of body of thoracic vertebra ([facility]), Moderate malnutrition ([facility]), Osteoporosis, and PAD (peripheral artery disease) ([facility]). Past Surgical History: has a [...] reports wall/furniture walking) Transfer Assistance: Independent Active Business Project Analyst: Yes Patient's Business Project Analyst Info: Daughter Mode of Transportation: Car Occupation: [...] 111) AM-PAC Inpatient T-Scale Score : 40.78 (12/12/221112) Mobility Inpatient CMS 0-100% Score: 54.16 (12/12/22 [...] Kristina Franks PT Occupational Therapy Facility/Department: [facility] MED SURG ICU Occupational Therapy Initial Assessment Name: Rebekah Lei : 1935 Date of Service: 12/12/2022 Chief [...] CAD (coronary artery disease), Chronic atrial fibrillation ([facility]), Chronic CHF (congestive heart failure) ([facility]), Compression fracture of body of thoracic vertebra ([facility]), Moderate malnutrition ([facility]), Osteoporosis, and PAD (peripheral artery disease) ([facility]). Past Surgical History: has a [...] reports wall/furniture walking) Transfer Assistance: Independent Active Business Project Analyst: Yes Patient's Business Project Analyst Info: Daughter Mode of Transportation: Car Occupation: [...] Hand Dominance Hand Dominance: Right AM-PAC Score AM-[facility] Inpatient Daily Activity Raw Score: 15 (12/12/22 3357) AM-PAC Inpatient ADL T-Scale Score : 34.69 [...] Time Individual Concurrent Group Co-treatment Time In 831 Time Out 09 Minutes 37 Time Coded Treatment Minutes: 10 Kalani Keene OTR/L Images from the original note were not included. [facility] Office: [phone] Aditya Zapata DO, Teo Espitia DO, Haroon [...] Yudith Shell DNP, Karissa Nguyen CNP, Julissa Landis, SPECIAL CLASS WELDER, Genet Vega, SPECIAL CLASS WELDER, Keri Dietz, SPECIAL CLASS WELDER, Shirley Helton, SPECIAL CLASS WELDER, Deuce Guthrie PA-C, Anabelle Mccoy, FISHING GEAR MECHANIC, Aparna Bryant, CORNELIUS, Rebekah Duran, CORNELIUS [facility] IN-PATIENT SERVICE [facility] Progress Note 12/11/2022 1:46 PM Name: Rebekah Lei Acct: [id number] Room: [facility] Day: 2 Admit Date: 12/08/2022 8:59 PM [...] No results for input(s): PROT, LABALBU, LABA1C, G2AWIAB, C0DPCNX, FT4, TSH, AST, ALT, LDH, GGT, ALKPHOS, LABGGT, BILITOT, BILIDIR, AMMONIA, AMYLASE, LIPASE, LACTATE, CHOL, HDL, LDLCHOLESTEROL, CHOLHDLRATIO, TRIG, VLDL, DMX28CS, PHENYTOIN, PHENYF, URICACID, POCGLU in the last 72 hours. ABG:No results found for: POCPH, PHART, PH, POCPCO2, PEC6LQW, PCO2, POCPO2, PO2ART, PO2, POCHCO3, NIK0YGN, HCO3, NBEA, PBEA, BEART, BE, THGBART, THB, EPR0RWZ, WWCZ8UBF, D3GXYINR, O2SAT, FIO2 No results found for: SPECIAL [...] spine without cord injury, closed, initial encounter ([facility]) 12/09/2022 Yes Pleural effusion, right 12/09/2022 Yes Atrial fibrillation with rapid ventricular response ([facility]) 12/09/2022 Yes Anasarca 12/09/2022 Yes [...] at which time she had an acute AK involving the right coronary artery with subsequent [...] unchanged from a previous study completed at [facility] on September 26, 2021. Electrocardiogram shows atrial fibrillation right bundle branch block pattern. This is unchanged from previous tracings as well. Would resume anticoagulation as soon is it is felt safe to do so from a surgical standpoint. Post discharge she should follow-up with [facility] Progress Note Patient: Rebekah Lei Date of : 1935 87 y.o. female [...] be obtained and operative site marked -Ancef combination machine tool setter to OR -IM and pulmonology cleared; Echo [...] original note were not included. Occupational Therapy [facility] Occupational Therapy Not Seen Note DATE: 12/11/2022 NAME: Rebekah Lei : 1935 Patient not seen this date for Occupational Therapy due to: Surgery/Procedure: Pt pending kyphoplasty this date with orthosx Next Scheduled Treatment: Will check back 12/12/2022 Images from the original note were not included. Physical Therapy Physical Therapy Cancel Note DATE: 12/11/2022 NAME: Rebekah Lie : 1935 Patient not seen this date for Physical Therapy due to: Surgery/Procedure: hypoplasty today at noon Silviculture Professor spoke with Sury on med surg unit, informed her that pt's surgery has been rescheduled for noon on 12/11/2022. Also informed caller that surgeon wants patient to eat today & NPO at midnight. Caller verbalized an understanding. Silviculture Professor spoke with RASHIDA Armijo, for report. Silviculture Professor informed that pt has an active order [...] not included. [facility] Office: [phone] Aditya Zapata DO, Teo Espitia DO, Haroon [...] Gillespie DO, Augustus Pak MD, No Walton, SPECIAL CLASS WELDER, Kendra Ramirez, SPECIAL CLASS WELDER, Aviva Barnett, SPECIAL CLASS WELDER, Hamzah Hartman, SPECIAL CLASS WELDER, Yudith Shlel, KIRTI, Karissa Nguyen, SPECIAL CLASS WELDER, Julissa Landis, SPECIAL CLASS WELDER, Genet Vega, SPECIAL CLASS WELDER, Keri Dietz, SPECIAL CLASS WELDER, Shirley Helton, SPECIAL CLASS WELDER, Deuce Guthrie PA-C, Anabelle Mccoy, FISHING GEAR MECHANIC, Aparna Bryant, SPECIAL CLASS WELDER, Rebekah Duran, [facility] IN-PATIENT SERVICE [facility] Progress Note 12/10/2022 11:07 AM Name: Rebekah Lei Acct: [id number] Room: [address] [place] [address] Day: 1 Admit Date: 12/08/2022 8:59 PM [...] No results for input(s): PROT, LABALBU, LABA1C, L2LGORB, U2OETEJ, FT4, TSH, AST, ALT, LDH, GGT, ALKPHOS, LABGGT, BILITOT, BILIDIR, AMMONIA, AMYLASE, LIPASE, LACTATE, CHOL, HDL, LDLCHOLESTEROL, CHOLHDLRATIO, TRIG, VLDL, MJR29WH, PHENYTOIN, PHENYF, URICACID, POCGLU in the last 72 hours. ABG:No results found for: POCPH, PHART, PH, POCPCO2, QZF9TPK, PCO2, POCPO2, PO2ART, PO2, POCHCO3, JME0XGI, HCO3, NBEA, PBEA, BEART, BE, THGBART, THB, IVS6EAY, LLPS4PYE, Z9BVLIVK, O2SAT, FIO2 No results found for: SPECIAL [...] spine without cord injury, closed, initial encounter ([facility]) 12/09/2022 Yes Pleural effusion, right 12/09/2022 Yes Atrial fibrillation with rapid ventricular response (HCC) 12/09/2022 Yes Anasarca 12/09/2022 Yes Plan: T11 [...] Therapy Cancel Note DATE: 12/10/2022 NAME: Rebekah Lei : 1935 Patient not seen this date for Physical Therapy due to: Awaiting thoracic/lumbar MRI and orthosx POC following MRI results. Will check back in PM as time allows or 12/11 Images from the original note were not included. Occupational Therapy [facility] Occupational Therapy Not Seen Note DATE: 12/10/2022 NAME: Rebekah Lei : 1935 Patient not seen this date for Occupational Therapy due to: Other: Awaiting thoracic/lumbar MRI and orthosx POC following MRI results Next Scheduled Treatment: Will check back PM as able or 12/11/2022 documented in this encounter [facility] Work Phone: 12-13-2022 Note PROCEDURE: ULTRASOUNDGUIDED RIGHT [...] chest with one percent lidocaine. A 5 Tunisian Yueh needle was advanced into the pleural [...] 800 mL clear yellow fluid was removed. [facility]SOL[facility] 12-13-2022 Note PROCEDURE: [...] chest with one percent lidocaine. A 5 Tunisian Yueh needle was advanced into the pleural [...] 800 mL clear yellow fluid was removed. [facility] 12-13-2022 History of Present illness Narrative Pt arrives to room with EMS for rt therapeutic thoracentesis JR Pa and CM RT to bedside Site prepped and draped Access obtained on right 800ml of clear dark yellow fluid removed Tolerated well Return to [facility] with transport documented in this encounter [employer] Phone: 12-11-2022 Miscellaneous Notes Contact Type: General Care Coordination Activity Patient was scheduled for f/u with PCP today. This was cancelled, as patient is currently admitted to [facility] for fall and lumbar compression fracture. documented in this encounter [employer] 12-11-2022 Telephone encounter Note Contact Type: General Care Coordination Activity Patient was scheduled for f/u with PCP today. This was cancelled, as patient is currently admitted to [facility] for fall and lumbar compression fracture. [facility] note Diagnosis Fracture of lumbar spine without cord injury, closed, initial encounter (HCC)- Primary Lumbar compression fracture, sequela Pleural effusion, right Unspecified pleural effusion Atrial fibrillation with rapid ventricular response (HCC) Atrial fibrillation Anasarca Edema documented in this encounter [employer] Phone: evaluation note* Diagnosis Status post umbilical hernia repair, follow-up exam- Primary Follow-up examination, following other surgery documented in this encounter [facility] SystemInstructionsNot on filedocumented in this encounter [facility] SystemInstructionsNot on filedocumented in this encounter [facility] SystemInstructionsNot on filedocumented in this encounter [facility] Advance Directives No Advanced Directives Records FoundDocuments on File Type Date Recorded Patient Installer Inspector Final Expl anation DNR Physician Order 07/19/2023 10:17 AM Date Activated Date Inactivated Comments 07/08/2023 5:51 PM 07/12/2023 5:41 PM Date Activated Date Inactivated Comments 11/07/2022 7:10 AM 11/08/2022 8:15 PM Date Activated Date Inactivated Comments 08/15/2022 6:14 PM 08/20/2022 12:34 AM Date Activated Date Inactivated Comments 07/22/2021 11:21 AM 07/22/2021 5:22 PM Date Activated Date Inactivated Comments 05/30/2021 2:17 PM 06/02/2021 5:36 PM Latest Code Status on File Code Status Date Activated Date Inactivated Comments Full Code 12/09/2022 6:00 AM Latest Code Status on File Code Status Date Activated Date Inactivated Comments Full Code 12/09/2022 6:00 AM 12/14/2022 6:44 PM Latest Code Status on File Code Status Date Activated Date Inactivated Comments DNR Comfort Care Arrest (DNR-CCA) [place] 07/08/2023 5:51 PM 07/12/2023 5:41 PM Code Status History Code Status Date Activated Date Inactivated Comments DNR Comfort Care Arrest (DNR -CCA) [place] 11/07/2022 7:10 AM 11/08/2022 8:15 PM Full Code 08/15/2022 6:14 PM 08/20/2022 12:34 AM Full Code 07/22/2021 11:21 AM 07/22/2021 5:22 PM Full Code 05/30/2021 2:17 PM 06/02/2021 5:36 PM Documents on File Type Date Recorded Patient Installer Inspector Final Expl anation Advance Directive 10/29/2024 7:51 PM Advan ce Directive 10-29-24 DNR Physician Order 07/19/2023 10:17 AM Date Activated Date Inactivated Comments 10/29/2024 9:40 PM 10/31/2024 4:42 PM Date Activated Date Inactivated Comments 07/08/2023 5:51 PM 07/12/2023 5:41 PM Date Activated Date Inactivated Comments 11/07/2022 7:10 AM 11/08/2022 8:15 PM Date Activated Date Inactivated Comments 08/15/2022 6:14 PM 08/20/2022 12:34 AM Date Activated Date Inactivated Comments 07/22/2021 11:21 AM 07/22/2021 5:22 PM Summary Purpose Family History No Family [...] C/o rib pain and pain with movement Reason Onset Date Comments AWV 02/12/2024 Reason Comments Post-op Post op umbilical he rnia repair performed 10/29/24 at [facility] Ordered Prescriptions (unrec ognized section and content) [...] RN)1327 (Held by provider - Provider: Thomas Chnag MD - Reason: Other - Comment: Hypotension)1800 (Automatically Held - Provider: Thomas Chang MD) 0636 (Unheld by provider - Provider: Thomas Chang MD)0821 (Given - Provider: Anrdia Cm RN)1700 (Given - Provider: Andria Cm RN) 0905 (Given - Provider: Moustapha Middleton)1800 (Due) metoprolol succinate (TOPROL XL) extended release tablet 25 mg 25 mg, Oral, DAILY, First dose on 12/09/22 at 2200, Until Discontinued, Do not crush [...] First dose on Sat12/09/22 at 0900, Until Discontinued, For Line Patency: [...] RN - Reason: Other - Comment: duplicate order)2109 (Given - Provider: Jimmy Dewitt RN) 1004 [...] 12/09/22 at 0600, Until Discontinued, Pain Moderate (4-6), Maximum dose of acetaminophen is 4000 mg from all sources in 24 hours. 0201 (Given - Provider: Jimmy Dewitt RN) 0105 (See Alternative - Provider: Jimmy Dewitt RN) HYDROcodone-acetaminophen (NORCO) 5-325 MG per tablet 2 tablet(Linked Group 2) 2 tablet, Oral, EVERY 4 HOURS PRN, Starting on 12/09/22 at 0600, Until Discontinued, Pain Severe (7-10), [...]
Care Teams (unrecognized sec tion and content) Chief Business Officer Relationship Specialty Start Date End Date Hawa Garzon [address] [place] [phone] PCP - General Environmental Technician 12/11/22 Chief Business Officer Relationship Specialty Start Date End Date Hawa Garzon [address] [place] [address] PCP - General Environmental Technician 12/11/22 Chief Business Officer Relationship Specialty Start Date End Date Hawa Garzon APRN-SPECIAL CLASS WELDER [address] [place] [phone] PCP - General Family Medicine 05/30/21 Chief Business Officer Relationship Specialty Start Date End Date Hawa Garzon APRN-CNP [address] [place] [phone] PCP - General Family Medicine 05/30/21 Chief Business Officer Relationship Specialty Start Date End Date Kelly Addison MD [address] [facility] [place] [address] PCP - General Internal Medicine 10/29/24 INFORMATION SOURCE (unrecogn ized section and content) DATE CREATED AUTHOR 01/22/2023 [facility] DATE CREATED AUTHOR AUTHOR'S ORGANIZ ATION 02/12/2023 [facility] DATE CREATED AUTHOR AUTHOR'S ORGANIZ ATION 11/17/2023 [facility] DATE CREATED AUTHOR AUTHOR'S ORGANIZ ATION 10/31/2024 [facility] DATE CREATED AUTHOR AUTHOR'S ORGANCLAIRE ATION 11/15/2024 [facility] DATE CREATED AUTHOR AUTHOR'S ORGANCLAIRE ATION 01/31/2025 [facility] FOR RECORDS PERTAINING TO PATIENTS WHO [...] BE BASED ON THE PRIMARY CLINICAL RECORDS. [employer] provides no warranty or guarantee of the accuracy or completeness of information in this document.
[2025-04-14 20:39] LABS: Blood Urea Nitrogen 85.0 mg/dL (7.0-18.0)
== END 2025-04-14 17:40 | disposition home or self-care (01) ==
LOC: LAB 17:39
PROVIDERS: PCP Student in an Organized Health Care Education/Training Program; Visit Provider Student in an Organized Health Care Education/Training Program
DX: A41.9 Sepsis, unspecified organism (principal); L08.9 Local infection of the skin and subcutaneous tissue, unspecified; N17.9 Acute kidney failure, unspecified; R62.7 Adult failure to thrive
CPT/HCPCS: 36415; 80053; 85025

== ENCOUNTER 2025-04-15 16:02 | Outpatient (REF) | payer MEDICARE, MEDICAID, SELFPAY ==
--- OUTSIDE RECORDS SUMMARY | 2025-04-15 16:13 | XMS_ITS | CCD ---
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, Foluso Primary Care Provider KELLY ADDISON Primary Care Unavailable BOLA HINTON Consulting Unavailable DEWEY HART Admitting Unavailable DEWEY HART Attending Unavailable Kelly Addison MD Primary Care Provider LILI GELLER Attending Unavailable KELLY ADDISON Referring [...] mouth 0 05/21/2022 Active polyethylene glycol 3350 46826 mg powder for oral solution (1 source) [...] frequent line interruptions/ long duration, Starting on Kiron 12/09/22 at 0805 For piggyback infusion, administer [...] (2 times per day), First dose on Kiron 12/09/22 at 0900, Until Discontinued For Line [...] needed 10 mL, IntraVENous, PRN, Starting on Kiron 12/09/22 at 0805, Until Discontinued, Line Care, [...] Coronary arteriosclerosis; Translations: [Atherosclerotic heart disease of [place] coronary artery without angina pectoris] Onset: 07-19-2021 [...] 25 ABSOLUTE BASOPHIL 0.1 X10E9/L Normal 0.0-0.[address] [facility] Comment on above: Performed By: #### C BCA, CMP, PINR, 79854-9, 60466-9 #### [facility] ([id number]) [address] [place] [address] 50809 ABSOLUTE NEUTROPHIL 10.4 X10E9/L High 1.5-6.6 [facility] Comment on above: Performed By: #### C BCA, CMP, PINR, 18218-4, 95844-0 #### [facility] ([id number]) [address] [place] [address] 29897 Basophils/100 WBC (Bld) 0.6 % Normal [facility] Comment on above: Performed By: #### C BCA, CMP, PINR, 86979-8, 36123-8 #### [facility] ([id number]) [address] [place] [address] 91650 Eosinophils (Bld) [#/Vol] 0.0 10*3/uL Normal 0.0-0.4 [facility] Comment on above: Performed By: #### C BCA, CMP, PINR, 32681-5, 58647-4 #### [facility] ([id number]) [address] [place] [address] 18289 Eosinophils/100 WBC (Bld) 0.3 % Normal [facility] Comment on above: Performed By: #### C BCA, CMP, PINR, 19116-8, 60180-2 #### [facility] ([id number]) [address] [place] [address] 67297 Erythrocyte distribution width (RBC) [Ratio] 16.7 % High 11.5-15.0 [facility] Comment on above: Performed By: #### C BCA, CMP, PINR, 16541-2, 14043-8 #### [facility] ([id number]) [address] [place] [address] 39613 Hematocrit (Bld) [Volume fraction] 35.9 % Normal 35-47 [facility] Comment on above: Performed By: #### C BCA, CMP, PINR, 24533-0, 62150-6 #### [facility] ([id number]) [address] [place] [address] 93193 Hemoglobin (Bld) [Mass/Vol] 11.9 g/dL Normal 11.7-15.5 [facility] Comment on above: Performed By: #### C BCA, CMP, PINR, 39808-2, 29741-7 #### [facility] ([id number]) [address] [place] [address] 62576 Lymphocytes (Bld) [#/Vol] 1.5 10*3/uL Normal 1.0-3.5 [facility] Comment on above: Performed By: #### C BCA, CMP, PINR, 77140-5, 95201-4 #### [facility] ([id number]) [address] [place] [address] 92606 Lymphocytes/100 WBC (Bld) 12.0 % Normal [facility] Comment on above: Performed By: #### C BCA, CMP, PINR, 52856-3, 58900-1 #### [facility] ([id number]) [address] [place] [address] 68595 MCH (RBC) [Entitic mass] 29.7 pg Normal 27-34 [facility] Comment on above: Performed By: #### C BCA, CMP, PINR, 58937-2, 11505-4 #### [facility] ([id number]) [address] [place] [address] 17031 MCHC (RBC) [Mass/Vol] 33.1 g/dL Normal 32-36 [facility] Comment on above: Performed By: #### C BCA, CMP, PINR, 22506-6, 64888-8 #### [facility] ([id number]) [address] [place] [address] 35371 MCV (RBC) [Entitic vol] 90 fL Normal 80-100 [facility] Comment on above: Performed By: #### C BCA, CMP, PINR, 24080-0, 71503-3 #### [facility] ([id number]) [address] [place] [address] 41372 Monocytes (Bld) [#/Vol] 0.8 10*3/uL Normal 0-0.9 [facility] Comment on above: Performed By: #### C BCA, CMP, PINR, 71436-8, 73570-8 #### [facility] ([id number]) [address] [place] [address] 18012 Monocytes/100 WBC (Bld) 5.9 % Normal [facility] Comment on above: Performed By: #### C BCA, CMP, PINR, 83497-9, 15364-5 #### [facility] ([id number]) [address] [place] [address] 44240 Neutrophils/100 WBC (Bld) 81.2 % Normal [facility] Comment on above: Performed By: #### C BCA, CMP, PINR, 38673-0, 30518-0 #### [facility] ([id number]) [address] [place] [address] 58593 Platelet mean volume (Bld) [Entitic vol] 9.3 fL Normal 7-12 [facility] Comment on above: Performed By: #### C BCA, CMP, PINR, 41636-8, 18842-2 #### [facility] ([id number]) [address] [place] [address] 66979 Platelets (Bld) [#/Vol] 270 10*3/uL Normal 150-450 [facility] Comment on above: Performed By: #### C BCA, CMP, PINR, 09076-5, 30927-2 #### [facility] ([id number]) [address] [place] [address] 45807 RBC COUNT 4.00 X10E12/L Normal 3.80-5.20 [facility] Comment on above: Performed By: #### C BCA, CMP, PINR, 21587-6, 38399-8 #### [facility] ([id number]) [address] [place] [address] 36752 WBC (Bld) [#/Vol] 12.8 10*3/uL High 4.0-11.0 [facility] Comment on above: Performed By: #### C BCA, CMP, PINR, 76672-1, 75307-9 #### [facility] ([id number]) [address] [place] [address] 92782 COMPREHENSIVE METABOLIC PANE Moe 10-31-2024 Albumin [Mass/Vol] 3.2 g/dL Normal 3.2-5.[address] [facility] Comment on above: Performed By: #### C BCA, CMP, PINR, 89191-3, 46089-2 #### [facility] ([id number]) [address] [place] [address] 01313 ALP [Catalytic activity/Vol] 52 U/L Normal 39-130 [facility] Comment on above: Performed By: #### C BCA, CMP, PINR, 04946-6, 78938-3 #### [facility] ([id number]) [address] [place] [address] 59318 ALT [Catalytic activity/Vol] 11 U/L Normal 0-31 [facility] Comment on above: Performed By: #### C BCA, CMP, PINR, 15603-7, 39218-9 #### [facility] ([id number]) [address] [place] [address] 45385 Anion gap [Moles/Vol] 7 mmol/L Normal 5-15 [facility] Comment on above: Performed By: #### C BCA, CMP, PINR, 84281-7, 28681-6 #### [facility] ([id number]) [address] [place] [address] 36059 AST [Catalytic activity/Vol] 17 U/L Normal 0-41 [facility] Comment on above: Performed By: #### C BCA, CMP, PINR, 00062-5, 03729-5 #### [facility] ([id number]) [address] [place] [address] 90108 Bilirubin [Mass/Vol] 0.5 mg/dL Normal 0.3-1.2 [facility] Comment on above: Performed By: #### C BCA, CMP, PINR, 83540-5, 69290-4 #### [facility] ([id number]) [address] [place] [address] 55669 Calcium [Mass/Vol] 8.4 mg/dL Low 8.5-10.[address] [facility] Comment on above: Performed By: #### C BCA, CMP, PINR, 55314-9, 42770-9 #### [facility] ([id number]) [address] [place] [address] 66773 Chloride [Moles/Vol] 106 mmol/L Normal 98-109 [facility] Comment on above: Performed By: #### C BCA, CMP, PINR, 34911-8, 35602-0 #### [facility] ([id number]) [address] [place] [address] 35061 CO2 [Moles/Vol] 24 mmol/L Normal 22-32 [facility] Comment on above: Performed By: #### C BCA, CMP, PINR, 73263-6, 75660-7 #### [facility] ([id number]) [address] [place] [address] 53611 Creatinine [Mass/Vol] 1.16 mg/dL High 0.40-1.00 [facility] Comment on above: Result Comment: METH OD TRACEABLE TO IDMS STANDARD Performed By: #### C BCA, CMP, PINR, 88061-5, 38352-6 #### [facility] ([id number]) [address] [place] [address] 39748 GFR/1.73 sq M.predicted among non-blacks MDRD (S/P/Bld) [Vol rate/Area] 45 mL/min/{1.73_m2} Low >59 [facility] Comment on above: Result Comment: Reported eGFR is based on the CKD-EPI 2020 equation that does not use a race coefficient. Performed By: #### C BCA, CMP, PINR, 28263-9, 89436-4 #### [facility] ([id number]) [address] [place] [address] 01740 Glucose [Mass/Vol] 105 mg/dL High 65-[address] [facility] Comment on above: Performed By: #### C BCA, CMP, PINR, 85188-3, 64207-7 #### [facility] ([id number]) [address] [place] [address] 95020 Potassium [Moles/Vol] 4.0 mmol/L Normal 3.5-5.0 [facility] Comment on above: Performed By: #### C BCA, CMP, PINR, 63059-9, 30500-0 #### [facility] ([id number]) [address] [place] [address] 94464 Protein [Mass/Vol] 6.2 g/dL Normal 6.0-8.[address] [facility] Comment on above: Performed By: #### C BCA, CMP, PINR, 72965-5, 06403-9 #### [facility] ([id number]) [address] [place] [address] 66339 Sodium [Moles/Vol] 137 mmol/L Normal 134-[address] [facility] Comment on above: Performed By: #### C BCA, CMP, PINR, 63235-4, 64899-8 #### [facility] ([id number]) [address] [place] [address] 57321 Urea nitrogen [Mass/Vol] 19 mg/dL Normal 5-27 [facility] Comment on above: Performed By: #### C BCA, CMP, PINR, 59677-8, 72349-8 #### [facility] ([id number]) [address] [place] [address] 49084 MAGNESIUMon 10-31-2024 Magnesium [Mass/Vol] 1.8 mg/dL Normal 1.8-2.6 [facility] Comment on above: Performed By: #### C BCA, CMP, PINR, 95614-3, 32970-5 #### [facility] ([id number]) [address] [place] [address] 67574 PROTIME AND INRon 10-31-2024 INR Coag (PPP) [Relative time] 2.5 {INR} High 0.9-1.2 [facility] Comment on above: Performed By: #### C BCA, CMP, PINR, 97329-0, 89475-3 #### [facility] ([id number]) [address] [place] [address] 65817 PT Coag (PPP) [Time] 28.9 s High 9.8-13.2 [facility] Comment on above: Result Comment: NEW REFERENCE RANGE Performed By: #### C BCA, CMP, PINR, 13655-9, 62612-5 #### [facility] ([id number]) [address] [place] [address] 52995 CBC AND AUTO DIFFon 10-31-19 ABSOLUTE BASOPHIL 0.1 X10E9/L Normal 0.0-0.[address] [facility] Comment on above: Performed By: #### C VICTORIA, CMP, 93504-6 #### [facility] ([id number]) [address] [place] [address] 02810 ABSOLUTE NEUTROPHIL 12.9 X10E9/L High 1.5-6.6 [facility] Comment on above: Performed By: #### Alcon KESSLER, CMP, 14222-0 #### [facility] ([id number]) [address] [place] [address] 70227 Basophils/100 WBC (Bld) 0.5 % Normal [facility] Comment on above: Performed By: #### C BCA, CMP, 03858-8 #### [facility] ([id number]) [address] [place] [address] 28186 Eosinophils (Bld) [#/Vol] 0.0 10*3/uL Normal 0.0-0.4 [facility] Comment on above: Performed By: #### Alcon BCA, CMP, 11413-3 #### [facility] ([id number]) [address] [place] [address] 97538 Eosinophils/100 WBC (Bld) 0.0 % Normal [facility] Comment on above: Performed By: #### Alcon KESSLER [facility], 56793-8 #### [facility] ([id number]) [address] [place] [address] 51557 Erythrocyte distribution width (RBC) [Ratio] 16.4 % High 11.5-15.0 [facility] Comment on above: Performed By: #### Alcon KESSLER [facility], #### [facility] ([id number]) [address] [place] [address] 21811 Hematocrit (Bld) [Volume fraction] 39.7 % Normal 35-47 [facility] Comment on above: Performed By: #### Alcon KESSLER [facility], #### [facility] ([id number]) [address] [place] [address] 47488 Hemoglobin (Bld) [Mass/Vol] 13.3 g/dL Normal 11.7-15.5 [facility] Comment on above: Performed By: #### Alcon KESSLER [facility], #### [facility] ([id number]) [address] [place] [address] 25137 Lymphocytes (Bld) [#/Vol] 0.5 10*3/uL Low 1.0-3.5 [facility] Comment on above: Performed By: #### Alcon KESSLER CMP, #### [facility] ([id number]) [address] [place] [address] 83370 Lymphocytes/100 WBC (Bld) 3.9 % Normal [facility] Comment on above: Performed By: #### Alcon KESSLER CMP, #### [facility] ([id number]) [address] [place] [address] 55634 MCH (RBC) [Entitic mass] 29.9 pg Normal 27-34 [facility] Comment on above: Performed By: #### C ISIDRO KESSLER, #### [facility] ([id number]) [address] [place] [address] 12345 MCHC (RBC) [Mass/Vol] 33.5 g/dL Normal 32-36 [facility] Comment on above: Performed By: #### Alcon KESSLER CMP, #### [facility] ([id number]) [address] [place] [address] 17979 MCV (RBC) [Entitic vol] 89 fL Normal 80-100 [facility] Comment on above: Performed By: #### Alcon KSESLER CMP, #### [facility] ([id number]) [address] [place] [address] 36967 Monocytes (Bld) [#/Vol] 0.4 10*3/uL Normal 0-0.9 [facility] Comment on above: Performed By: #### Alcon KESSLER CMP, #### [facility] ([id number]) [address] [place] [address] 23683 Monocytes/100 WBC (Bld) 2.6 % Normal [facility] Comment on above: Performed By: #### Alcon KESSLER CMP, #### [facility] ([id number]) [address] [place] [address] 22461 Neutrophils/100 WBC (Bld) 93.0 % Normal [facility] Comment on above: Performed By: #### Alcon KESSLER CMP, #### [facility] ([id number]) [address] [place] [address] 27986 Platelet mean volume (Bld) [Entitic vol] 9.4 fL Normal 7-12 [facility] Comment on above: Performed By: #### Alcon KESSLER CMP, 03594-7 #### [facility] ([id number]) [address] [place] [address] 73899 Platelets (Bld) [#/Vol] 280 10*3/uL Normal 150-450 [facility] Comment on above: Performed By: #### C BCA, CMP, 05413-1 #### [facility] ([id number]) [address] [place] [address] 78709 RBC COUNT 4.45 X10E12/L Normal 3.80-5.20 [facility] Comment on above: Performed By: #### C BCA, CMP, 94907-5 #### [facility] ([id number]) [address] [place] [address] 11457 WBC (Bld) [#/Vol] 13.9 10*3/uL High 4.0-11.0 [facility] Comment on above: Performed By: #### C BCA, CMP, 60960-8 #### [facility] ([id number]) [address] [place] [address] 42281 COMPREHENSIVE METABOLIC PANE Moe 10-30-2024 Albumin [Mass/Vol] 3.3 g/dL Normal 3.2-5.[address] [facility] Comment on above: Performed By: #### C BCA, CMP, PINR, 88919-9, 60346-4 #### [facility] ([id number]) [address] [place] [address] 92954 ALP [Catalytic activity/Vol] 60 U/L Normal 39-130 [facility] Comment on above: Performed By: #### C BCA, CMP, PINR, 47822-9, 43187-7 #### [facility] ([id number]) [address] [place] [address] 15522 ALT [Catalytic activity/Vol] 11 U/L Normal 0-31 [facility] Comment on above: Performed By: #### C BCA, CMP, PINR, 63900-2, 31082-4 #### [facility] ([id number]) [address] [place] [address] 66388 Anion gap [Moles/Vol] 9 mmol/L Normal 5-15 [facility] Comment on above: Performed By: #### C BCA, CMP, PINR, 05748-5, 09224-1 #### [facility] ([id number]) [address] [place] [address] 01208 AST [Catalytic activity/Vol] 22 U/L Normal 0-41 [facility] Comment on above: Performed By: #### C BCA, CMP, PINR, 99140-9, 66576-9 #### [facility] ([id number]) [address] [place] [address] 41172 Bilirubin [Mass/Vol] 0.8 mg/dL Normal 0.3-1.2 [facility] Comment on above: Performed By: #### C BCA, CMP, PINR, 64593-3, 21102-7 #### [facility] ([id number]) [address] [place] [address] 33893 Calcium [Mass/Vol] 8.5 mg/dL Normal 8.5-10.[address] [facility] Comment on above: Performed By: #### C BCA, CMP, PINR, 62594-2, 43924-1 #### [facility] ([id number]) [address] [place] [address] 08390 Chloride [Moles/Vol] 101 mmol/L Normal 98-109 [facility] Comment on above: Performed By: #### C BCA, CMP, PINR, 88361-5, 21097-1 #### [facility] ([id number]) [address] [place] [address] 66984 CO2 [Moles/Vol] 25 mmol/L Normal 22-32 [facility] Comment on above: Performed By: #### C BCA, CMP, PINR, 62075-8, 91567-5 #### [facility] ([id number]) [address] [place] [address] 69903 Creatinine [Mass/Vol] 1.08 mg/dL High 0.40-1.00 [facility] Comment on above: Result Comment: METH OD TRACEABLE TO IDMS STANDARD Performed By: #### C BCA, CMP, PINR, 36555-6, 85336-5 #### [facility] ([id number]) [address] [place] [address] 70911 GFR/1.73 sq M.predicted among non-blacks MDRD (S/P/Bld) [Vol rate/Area] 49 mL/min/{1.73_m2} Low >59 [facility] Comment on above: Result Comment: Reported eGFR is based on the CKD-EPI 2020 equation that does not use a race coefficient. Performed By: #### C BCA, CMP, PINR, 43996-8, 10578-3 #### [facility] ([id number]) [address] [place] [address] 74737 Glucose [Mass/Vol] 143 mg/dL High 65-[address] [facility] Comment on above: Performed By: #### C BCA, CMP, PINR, 97677-5, 94136-0 #### [facility] ([id number]) [address] [place] [address] 49219 Potassium [Moles/Vol] 4.7 mmol/L Normal 3.5-5.0 [facility] Comment on above: Performed By: #### C BCA, CMP, PINR, 57999-3, 33404-0 #### [facility] ([id number]) [address] [place] [address] 75208 Protein [Mass/Vol] 6.6 g/dL Normal 6.0-8.[address] [facility] Comment on above: Performed By: #### C BCA, CMP, PINR, 34060-4, 65423-1 #### [facility] ([id number]) [address] [place] [address] 06743 Sodium [Moles/Vol] 135 mmol/L Normal 134-[address] [facility] Comment on above: Performed By: #### C BCA, CMP, PINR, 02710-2, 51546-5 #### [facility] ([id number]) [address] [place] [address] 73839 Urea nitrogen [Mass/Vol] 16 mg/dL Normal 5-27 [facility] Comment on above: Performed By: #### C BCA, CMP, PINR, 48948-8, 23095-8 #### [facility] ([id number]) [address] [place] [address] 63448 MAGNESIUMon 10-30-2024 Magnesium [Mass/Vol] 1.8 mg/dL Normal 1.8-2.6 [facility] Comment on above: Performed By: #### C BCA, CMP, PINR, 73108-6, 04340-2 #### [facility] ([id number]) [address] [place] [address] 31303 CBC AND AUTO DIFFon 20-20 25 ABSOLUTE BASOPHIL 0.1 X10E9/L Normal 0.0-0.[address] [facility] Comment on above: Performed By: #### C BCA, CMP, PINR, 18989-3, 91466-1 #### [facility] ([id number]) [address] [place] [address] 06283 ABSOLUTE NEUTROPHIL 9.0 X10E9/L High 1.5-6.6 [facility] Comment on above: Performed By: #### C BCA, CMP, PINR, 51109-7, 60872-6 #### [facility] ([id number]) [address] [place] [address] 88997 Basophils/100 WBC (Bld) 0.8 % Normal [facility] Comment on above: Performed By: #### C BCA, CMP, PINR, 79391-4, 35612-8 #### [facility] ([id number]) [address] [place] [address] 57454 Eosinophils (Bld) [#/Vol] 0.2 10*3/uL Normal 0.0-0.4 [facility] Comment on above: Performed By: #### C BCA, CMP, PINR, 67525-3, 13155-4 #### [facility] ([id number]) [address] [place] [address] 90931 Eosinophils/100 WBC (Bld) 1.5 % Normal [facility] Comment on above: Performed By: #### C BCA, CMP, PINR, 21628-4, 58180-4 #### [facility] ([id number]) [address] [place] [address] 61899 Erythrocyte distribution width (RBC) [Ratio] 16.3 % High 11.5-15.0 [facility] Comment on above: Performed By: #### C BCA, CMP, PINR, 61742-2, 98878-3 #### [facility] ([id number]) [address] [place] [address] 45993 Hematocrit (Bld) [Volume fraction] 39.5 % Normal 35-47 [facility] Comment on above: Performed By: #### C BCA, CMP, PINR, 45021-2, 49426-4 #### [facility] ([id number]) [address] [place] [address] 51557 Hemoglobin (Bld) [Mass/Vol] 13.2 g/dL Normal 11.7-15.5 [facility] Comment on above: Performed By: #### C BCA, CMP, PINR, 17594-2, 12034-1 #### [facility] ([id number]) [address] [place] [address] 65022 Lymphocytes (Bld) [#/Vol] 1.1 10*3/uL Normal 1.0-3.5 [facility] Comment on above: Performed By: #### C BCA, CMP, PINR, 10286-0, 90281-5 #### [facility] ([id number]) [address] [place] [address] 39333 Lymphocytes/100 WBC (Bld) 10.3 % Normal [facility] Comment on above: Performed By: #### C BCA, CMP, PINR, 39472-6, 91252-1 #### [facility] ([id number]) [address] [place] [address] 89746 MCH (RBC) [Entitic mass] 29.8 pg Normal 27-34 [facility] Comment on above: Performed By: #### C BCA, CMP, PINR, 93063-3, 88281-5 #### [facility] ([id number]) [address] [place] [address] 15272 MCHC (RBC) [Mass/Vol] 33.4 g/dL Normal 32-36 [facility] Comment on above: Performed By: #### C BCA, CMP, PINR, 63874-5, 51315-3 #### [facility] ([id number]) [address] [place] [address] 16080 MCV (RBC) [Entitic vol] 89 fL Normal 80-100 [facility] Comment on above: Performed By: #### C BCA, CMP, PINR, 98037-0, 44789-7 #### [facility] ([id number]) [address] [place] [address] 09293 Monocytes (Bld) [#/Vol] 0.6 10*3/uL Normal 0-0.9 [facility] Comment on above: Performed By: #### C BCA, CMP, PINR, 06569-6, 86323-5 #### [facility] ([id number]) [address] [place] [address] 30133 Monocytes/100 WBC (Bld) 5.9 % Normal [facility] Comment on above: Performed By: #### C BCA, CMP, PINR, 67576-8, 51556-2 #### [facility] ([id number]) [address] [place] [address] 04304 Neutrophils/100 WBC (Bld) 81.5 % Normal [facility] Comment on above: Performed By: #### C BCA, CMP, PINR, 83117-0, 20966-3 #### [facility] ([id number]) [address] [place] [address] 21679 Platelet mean volume (Bld) [Entitic vol] 9.0 fL Normal 7-12 [facility] Comment on above: Performed By: #### C BCA, CMP, PINR, 89233-1, 82937-2 #### [facility] ([id number]) [address] [place] [address] 58630 Platelets (Bld) [#/Vol] 271 10*3/uL Normal 150-450 [facility] Comment on above: Performed By: #### C BCA, CMP, PINR, 39316-3, 28578-6 #### [facility] ([id number]) [address] [place] [address] 77482 RBC COUNT 4.43 X10E12/L Normal 3.80-5.20 [facility] Comment on above: Performed By: #### C BCA, CMP, PINR, 56449-6, 04274-4 #### [facility] ([id number]) [address] [place] [address] 69793 WBC (Bld) [#/Vol] 11.0 10*3/uL Normal 4.0-11.0 [facility] Comment on above: Performed By: #### C BCA, CMP, PINR, 88440-2, 92917-6 #### [facility] ([id number]) [address] [place] [address] [place] [address] COMPREHENSIVE METABOLIC PANE Moe 10-29-2024 Albumin [Mass/Vol] 3.6 g/dL Normal 3.2-5.[address] [facility] [facility] Comment on above: Performed By: #### C BCA, CMP, PINR, 24902-5, 88890-3 #### [facility] ([id number]) [address] [place] [address] 85103 ALP [Catalytic activity/Vol] 64 U/L Normal 39-130 [facility] Comment on above: Performed By: #### C BCA, CMP, PINR, 92649-7, 82638-2 #### [facility] ([id number]) [address] [place] [address] 60131 ALT [Catalytic activity/Vol] 10 U/L Normal 0-31 [facility] Comment on above: Performed By: #### C BCA, CMP, PINR, 47322-7, 99491-3 #### [facility] ([id number]) [address] [place] [address] 48964 Anion gap [Moles/Vol] 10 mmol/L Normal 5-15 [facility] Comment on above: Performed By: #### C BCA, CMP, PINR, 17387-8, 62306-3 #### [facility] ([id number]) [address] [place] [address] 22972 AST [Catalytic activity/Vol] 20 U/L Normal 0-41 [facility] Comment on above: Performed By: #### C BCA, CMP, PINR, 96959-6, 85854-8 #### [facility] ([id number]) [address] [place] [address] 78437 Bilirubin [Mass/Vol] 0.7 mg/dL Normal 0.3-1.2 [facility] Comment on above: Performed By: #### C BCA, CMP, PINR, 53265-0, 29292-4 #### [facility] ([id number]) [address] [place] [address] 96622 Calcium [Mass/Vol] 9.1 mg/dL Normal 8.5-10.[address] [facility] Comment on above: Performed By: #### C BCA, CMP, PINR, 24252-2, 82602-8 #### [facility] ([id number]) [address] [place] [address] 18070 Chloride [Moles/Vol] 102 mmol/L Normal 98-109 [facility] Comment on above: Performed By: #### C BCA, CMP, PINR, 98492-0, 10549-9 #### [facility] ([id number]) [address] [place] [address] 44555 CO2 [Moles/Vol] 23 mmol/L Normal 22-32 [facility] Comment on above: Performed By: #### C BCA, CMP, PINR, 16911-0, 46154-5 #### [facility] ([id number]) [address] [place] [address] 95516 Creatinine [Mass/Vol] 1.06 mg/dL High 0.40-1.00 [facility] Comment on above: Result Comment: METH OD TRACEABLE TO IDMS STANDARD Performed By: #### C BCA, CMP, PINR, 36110-7, 97316-3 #### [facility] ([id number]) [address] [place] [address] 98424 GFR/1.73 sq M.predicted among non-blacks MDRD (S/P/Bld) [Vol rate/Area] 51 mL/min/{1.73_m2} Low >59 [facility] Comment on above: Result Comment: Reported eGFR is based on the CKD-EPI 2020 equation that does not use a race coefficient. Performed By: #### C BCA, CMP, PINR, 35388-9, 11382-7 #### [facility] ([id number]) [address] [place] [address] 72480 Glucose [Mass/Vol] 174 mg/dL High 65-[address] [facility] Comment on above: Performed By: #### C BCA, CMP, PINR, 07596-8, 78351-2 #### [facility] ([id number]) [address] [place] [address] 70471 Potassium [Moles/Vol] 4.3 mmol/L Normal 3.5-5.0 [facility] Comment on above: Performed By: #### C BCA, CMP, PINR, 86398-5, 58847-1 #### [facility] ([id number]) [address] [place] [address] 61516 Protein [Mass/Vol] 7.1 g/dL Normal 6.0-8.[address] [facility] Comment on above: Performed By: #### C BCA, CMP, PINR, 92588-4, 62908-5 #### [facility] ([id number]) [address] [place] [address] 30975 Sodium [Moles/Vol] 135 mmol/L Normal 134-[address] [facility] Comment on above: Performed By: #### C BCA, CMP, PINR, 36304-8, 46830-7 #### [facility] ([id number]) [address] [place] [address] 18298 Urea nitrogen [Mass/Vol] 16 mg/dL Normal 5-27 [facility] Comment on above: Performed By: #### C BCA, CMP, PINR, 64357-5, 90829-1 #### [facility] ([id number]) [address] [place] [address] ABDOMEN AND PELVIS WO CON Ton [...] Canela MD on 10/29/2024 9:34 PM Normal [facility] Lactate (P mariela) [Moles/Vol]o n 10-29-2024 LACTATE W/REFLEX 1.7 mmol/L Normal 0.4-2.0 [facility] Comment on above: Result Comment: Result did not trigger repeat Lactate, re-order if needed. Performed By: #### 3 2133-1 #### [facility] ([id number]) [address] [place] [address] 23261 Natriuretic peptide B [Mass/ Vol]on 10-29-2024 Natriuretic peptide B (Bld) [Mass/Vol] 629 pg/mL High <100.0 [facility] Comment on above: Performed By: #### C BCA, CMP, PINR, 01979-9, 51976-9 #### [facility] ([id number]) [address] [place] [address] 18050 PROTIME AND INRon 10-29-2024 INR Coag (PPP) [Relative time] 1.4 {INR} High 0.9-1.2 [facility] Comment on above: Performed By: #### C BCA, CMP, PINR, 96328-9, 77860-7 #### [facility] ([id number]) [address] [place] [address] 32399 PT Coag (PPP) [Time] 16.8 s High 9.8-13.2 [facility] Comment on above: Result Comment: NEW REFERENCE RANGE Performed By: #### C BCA, CMP, PINR, 91999-3, 65307-1 #### [facility] ([id number]) [address] [place] [address] 62022 SARS/FLU A+B/RSV by NAAT/Mol ecularon 10-29-2024 SARS/FLU [...] operators who are performing tests using either Thrasos DX or OPPRTUNITY systems and is limited to laboratories that [...] repeat. Fact Sheet for Healthcare Providers: https://www.fda.gov/m edia/295072/download Fact Sheet for Patients: https://www.fda.gov/m edia/683043/download Normal [facility] Comment on above: Performed By: #### C OVFLR #### [facility] ([id number]) [address] [place] [address], [place] [address] URN PARVIN Oliveros 03-20- 2025 BILIRUBIN DEBBIE Negative Normal NEG [facility] Comment on above: Performed By: #### N UM #### [facility] ([id number]) [address] [place] [address] [place] [address] BLOOD/HGB DEBBIE Negative Normal NEG [facility] Comment on above: Performed By: #### N UM #### [facility] ([id number]) [address] [place] [address], [place] [address] GLUCOSE DEBBIE Negative Normal NEG [facility] Comment on above: Performed By: #### N UM #### [facility] ([id number]) [address] [place] [address] [place] [address] KETONES DEBBIE Trace Abnormal NEG [facility] Comment on above: Performed By: #### N UM #### [facility] ([id number]) [address] [place] [address] [place] [address] LEUKOCYTE ESTERASE DEBBIE Trace Abnormal NEG [facility] Comment on above: Performed By: #### N UM #### [facility] ([id number]) [address] [place] [address] [place] [address] NITRITE DEBBIE Negative Normal NEG [facility] Comment on above: Performed By: #### N UM #### [facility] ([id number]) [address] [place] [address] [place] [address] PH DEBBIE 7.0 Normal 5.0-8.5 [facility] Comment on above: Performed By: #### N UM #### [facility] ([id number]) [address] [place] [address], [place] [address] PROTEIN DEBBIE Negative Normal NEG [facility] Comment on above: Performed By: #### N UM #### [facility] ([id number]) [address] [place] [address], [place] [address] SPECIFIC GRAVITY DEBBIE 1.020 Normal 1.003-1.035 [facility] Comment on above: Performed By: #### N UM #### [facility] ([id number]) [address] [place] [address] 25295 UROBILINOGEN DEBBIE 0.2 eu/dL Normal <1.1 [facility] Comment on above: Performed By: #### N UM #### [facility] ([id number]) [address] [place] [address] 37880 aPTT Coag (PPP) [Time]on aPTT Coag (Bld) [Time] 27 s Normal 26-37 [facility] Comment on above: Result Comment: NEW REFERENCE RANGE Performed By: #### C BCA, CMP, PINR, 62556-7, 60378-5 #### [facility] ([id number]) [address] [place] [address] 20922 Prothrombin Timeon INR Coag (PPP) [Relative time] 1.5 {INR} Normal [facility] Comment on above: Order Comment: CALL doctor [id number] tel. [phone], Fax results to [facility] [facility] Patient is at: [address] [place] [address] CALL doctor [id number] tel. [phone], Fax results to [facility] [facility] Patient is at: [facility] [address] [place] [address] Performed By: #### P T #### [facility] [address] [place] [address] PT Coag (PPP) [Time] 18.2 s Critically high 12.3-14.9 [facility] Comment on above: Order Comment: CALL doctor [id number] tel. [phone], Fax results to [facility] Patient is at: [address] [place] [address] CALL doctor [id number] tel. [phone], Fax results to [facility] Ass Patient is at: [facility] [address] [facility] [place] [address] Performed By: #### P T #### [facility] [address] [place] [address] XR PELVIS (MIN 3 VIEWS)on XR PELVIS [...] Zhen Solo DO 02/12/23 Final result Normal [facility] CT ABDOMEN PELVIS WO CONTRAS Ton [...] Abdifatah Ac MD 01/24/23 Final result Normal [facility] CT HEAD WO CONTRASTon 2022 CT [...] Abdifatah Ac MD 01/24/23 Final result Normal [facility] CT LUMBAR SPINE WO CONTRASTo n [...] Thiago Rosenthal MD 01/24/23 Final result Normal [facility] BASIC METABOLIC PANELon 06-0 -2022 Anion gap [Moles/Vol] 9 mmol/L Normal 7-20 [facility] Comment on above: Performed By: #### L [id number] #### [facility] ([facility]) [address] [facility] [place] [address] Calcium [Mass/Vol] 8.5 mg/dL Low 8.6-10.3 [facility] Comment on above: Performed By: #### L [id number] #### [facility] ([facility]) [address] [place] [address] Chloride [Moles/Vol] 106 mmol/L Normal 98-107 [facility] Comment on above: Performed By: #### L [id number] #### [facility] ([facility]) [address] [place] [address] CO2 [Moles/Vol] 28 mmol/L Normal 21-31 [facility] Comment on above: Performed By: #### L [id number] #### [facility] ([facility]) [address] [place] [address] Creatinine [Mass/Vol] 0.64 mg/dL Normal 0.60-1.20 [facility] Comment on above: Performed By: #### L [id number] #### [facility] ([facility]) [address] [place] [address] GLOMERULAR FILTRATION RATE ML/MIN/1.73 SQ M.PREDICTED 86.0 mL/min/1.73m*2 Normal >60.0 [facility] Comment on above: Result Comment: [facility]???s estimated glomerular filtration rate (eGFR) will [...] individuals. Performed By: #### L [id number] #### [facility] ([facility]) [address] [place] [address] Glucose [Mass/Vol] 78 mg/dL Normal 70-100 [facility] Comment on above: Performed By: #### L [id number] #### [facility] ([facility]) [address] [place] [address] Potassium [Moles/Vol] 4.5 mmol/L Normal 3.5-5.1 [facility] Comment on above: Performed By: #### L [id number] #### [facility] ([facility]) [address] [place] [address] Sodium [Moles/Vol] 138 mmol/L Normal 136-145 [facility] Comment on above: Performed By: #### L [id number] #### [facility] ([facility]) [address] [place] [address] Urea nitrogen [Mass/Vol] 17 mg/dL Normal 7-25 [facility] Comment on above: Performed By: #### L [id number] #### [facility] ([facility]) [address] [place] [address] UREA NITROGEN/CREATININE (MASS RATIO) IN SER/PLAS 26.6 Normal [facility] Comment on above: Performed By: #### L [id number] #### [facility] ([facility]) [address] [place] [address] CBCon 01-16-2023 Erythrocyte distribution width (RBC) [Ratio] 21.6 % High 11.5-15.0 [facility] Comment on above: Performed By: #### L [id number] #### [facility] ([facility]) [address] [place] [address] ERYTHROCYTE MEAN CORPUSCULAR HEMOGLOBIN CONCENTRATION (G/DL) BY AUTOMATED 30.9 g/dL Low 32.0-35.0 [facility] Comment on above: Performed By: #### L [id number] #### [facility] ([facility]) [address] [place] [address] Hematocrit (Bld) [Volume fraction] 37.6 % Normal 36.0-48.0 [facility] Comment on above: Performed By: #### L [id number] #### [facility] ([facility]) [address] [place] [address] Hemoglobin (Bld) [Mass/Vol] 11.6 g/dL Low 12.0-15.0 [facility] Comment on above: Performed By: #### L [id number] #### [facility] ([facility]) [address] [place] [address] MCH (RBC) [Entitic mass] 29.5 pg Normal 27.0-33.0 [facility] Comment on above: Performed By: #### L [id number] #### [facility] [address] [place] [address] MCV (RBC) [Entitic vol] 95.7 fL Normal 82.0-98.0 [facility] Comment on above: Performed By: #### L [id number] #### [facility] ([facility]) [address] [place] [address] PLATELETS (10*3/UL) IN BLOOD AUTOMATED COUNT 313 10*3/uL Normal 150-400 [facility] Comment on above: Performed By: #### L [id number] #### [facility] ([facility]) [address] [place] [address] RBC (Bld) [#/Vol] 3.93 10*6/uL Normal 3.80-5.00 [facility] Comment on above: Performed By: #### L [id number] #### [facility] ([facility]) [address] [place] [address] WBC (Bld) [#/Vol] 7.89 10*3/uL Normal 4.00-10.60 [facility] Comment on above: Performed By: #### L [id number] #### [facility] ([facility]) [address] [place] [address] URINALYSISon 01-15-2023 BILIRUBIN, TOTAL PRESENCE IN URINE Negative Normal Negative [facility] Comment on above: Order Comment: Micro scopics not performed on urines with negative chemical reactions unless requested on original order. Performed By: #### L [id number] #### [facility] ([facility]) [address] [place] [address] Clarity (U) Clear Normal Clear [facility] Comment on above: Order Comment: Micro scopics not performed on urines with negative chemical reactions unless requested on original order. Performed By: #### L [id number] #### [facility] ([facility]) [address] [place] [address] Color (U) Yellow Normal Yellow [facility] Comment on above: Order Comment: Micro scopics not performed on urines with negative chemical reactions unless requested on original order. Performed By: #### L [id number] #### [facility] ([facility]) [address] [place] [address] Glucose (U) [Mass/Vol] Negative Normal Negative [facility] Comment on above: Order Comment: Micro scopics not performed on urines with negative chemical reactions unless requested on original order. Performed By: #### L [id number] #### [facility] ([facility]) [address] [place] [address] HEMOGLOBIN PRESENCE IN URINE Negative Normal Negative [facility] Comment on above: Order Comment: Micro scopics not performed on urines with negative chemical reactions unless requested on original order. Performed By: #### L [id number] #### [facility] ([facility]) [address] [place] [address] Ketones Ql (U) Negative Normal Negative [facility] Comment on above: Order Comment: Micro scopics not performed on urines with negative chemical reactions unless requested on original order. Performed By: #### L [id number] #### [facility] ([facility]) [address] [place] [address] LEUKOCYTE ESTERASE PRESENCE IN URINE BY TEST STRIP Negative Normal Negative [facility] Comment on above: Order Comment: Micro scopics not performed on urines with negative chemical reactions unless requested on original order. Performed By: #### L [id number] #### [facility] ([facility]) [address] [place] [address] NITRITE PRESENCE IN URINE Negative Normal Negative [facility] Comment on above: Order Comment: Micro scopics not performed on urines with negative chemical reactions unless requested on original order. Performed By: #### L [id number] #### [facility] ([facility]) [address] [place] [address] pH (U) 7.0 [pH] Normal 5.0-8.0 [facility] Comment on above: Order Comment: Micro scopics not performed on urines with negative chemical reactions unless requested on original order. Performed By: #### L [id number] #### [facility] ([facility]) [address] [place] [address] Protein (U) [Mass/Vol] Negative Normal Negative [facility] Comment on above: Order Comment: Micro scopics not performed on urines with negative chemical reactions unless requested on original order. Performed By: #### L [id number] #### [facility] ([facility]) [address] [place] [address] Specific gravity (U) [Rel density] 1.013 Low 1.015-1.020 [facility] Comment on above: Order Comment: Micro scopics not performed on urines with negative chemical reactions unless requested on original order. Performed By: #### L [id number] #### [facility] ([facility]) [address] [place] [address] URINE CULTURE, ROUTINEon Ampicillin [Susc] >8 Resistant [facility] Comment on above: Performed By: #### L [id number] #### [facility] ([facility]) [address] [place] [address] DAPTOmycin [Susc] 2 ug/ml Susceptible [facility] Comment on above: Performed By: #### L [id number] #### [facility] ([facility]) [address] [place] [address] Linezolid [Susc] <=1 Susceptible [facility] Comment on above: Performed By: #### L [id number] #### [facility] ([facility]) [address] [place] [address] Vancomycin [Susc] >16 Resistant [facility] Comment on above: Performed By: #### L [id number] #### [facility] ([facility]) [address] [place] [address] B-TYPE NATRIURETIC PEPTIDEon 12-28-2022 Natriuretic peptide B (Bld) [Mass/Vol] 1447 pg/mL High 0-100 [facility] Comment on above: Performed By: #### L [id number] #### [facility] ([facility]) [address] [place] [address] BASIC METABOLIC PANELon 05- Anion gap [Moles/Vol] 23 mmol/L High 7-20 [facility] Comment on above: Performed By: #### L [id number] #### [facility] ([facility]) [address] [place] [address] Calcium [Mass/Vol] 8.1 mg/dL Low 8.6-10.3 [facility] Comment on above: Performed By: #### L [id number] #### [facility] ([facility]) [address] [place] [address] Chloride [Moles/Vol] 108 mmol/L High 98-107 [facility] Comment on above: Performed By: #### L [id number] #### [facility] ([facility]) [address] [place] [address] CO2 [Moles/Vol] 13 mmol/L Invalid Interpretation Code [facility] Comment on above: Performed By: #### L [id number] #### [facility] ([facility]) [address] [place] [address] Creatinine [Mass/Vol] 0.86 mg/dL Normal 0.60-1.20 [facility] Comment on above: Performed By: #### L [id number] #### [facility] ([facility]) [address] [place] [address] GLOMERULAR FILTRATION RATE ML/MIN/1.73 SQ M.PREDICTED 65.8 mL/min/1.73m*2 Normal >60.0 [facility] Comment on above: Result Comment: [facility]???s estimated glomerular filtration rate (eGFR) will [...] individuals. Performed By: #### L [id number] #### [facility] ([facility]) [address] [place] [address] Glucose [Mass/Vol] 41 mg/dL Invalid Interpretation Code 70-100 [facility] Comment on above: Performed By: #### L [id number] #### [facility] ([facility]) [address] [place] [address] Potassium [Moles/Vol] 5.3 mmol/L High 3.5-5.1 [facility] Comment on above: Performed By: #### L [id number] #### [facility] ([facility]) [address] [place] [address] Sodium [Moles/Vol] 139 mmol/L Normal 136-145 [facility] Comment on above: Performed By: #### L [id number] #### [facility] ([facility]) [address] [place] [address] Urea nitrogen [Mass/Vol] 20 mg/dL Normal 7-25 [facility] Comment on above: Performed By: #### L [id number] #### [facility] ([facility]) [address] [place] [address] UREA NITROGEN/CREATININE (MASS RATIO) IN SER/PLAS 23.3 Normal [facility] Comment on above: Performed By: #### L [id number] #### [facility] ([facility]) [address] [place] [address] XR CHEST PORTABLEon 12-27-19 XR CHEST PORTABLE [...] Radha Rizo MD 12/25/22 Final result Normal [facility] B-TYPE NATRIURETIC PEPTIDEon 12-25-2022 Natriuretic peptide B (Bld) [Mass/Vol] 1854 pg/mL High 0-100 [facility] Comment on above: Performed By: #### L [id number] #### [facility] ([facility]) [address] [place] [address] BASIC METABOLIC PANELon 12-10 Anion gap [Moles/Vol] 15 mmol/L Normal 7-20 [facility] Comment on above: Performed By: #### L [id number] #### [facility] [address] [place] [address] Calcium [Mass/Vol] 8.0 mg/dL Low 8.6-10.3 [facility] Comment on above: Performed By: #### L [id number] #### [facility] [address] [place] [address] Chloride [Moles/Vol] 106 mmol/L Normal 98-107 [facility] Comment on above: Performed By: #### L [id number] #### [facility] [address] [place] [address] CO2 [Moles/Vol] 22 mmol/L Normal 21-31 [facility] Comment on above: Performed By: #### L [id number] #### [facility] [address] [place] [address] Creatinine [Mass/Vol] 0.77 mg/dL Normal 0.60-1.20 [facility] Comment on above: Performed By: #### L [id number] #### [facility] [address] [place] [address] GLOMERULAR FILTRATION RATE ML/MIN/1.73 SQ M.PREDICTED 75.1 mL/min/1.73m*2 Normal >60.0 [facility] Comment on above: Result Comment: [facility]???s estimated glomerular filtration rate (eGFR) will [...] individuals. Performed By: #### L [id number] #### [facility] ([facility]) [address] [place] [address] Glucose [Mass/Vol] 48 mg/dL Invalid Interpretation Code 70-100 [facility] Comment on above: Performed By: #### L [id number] #### [facility] ([facility]) [address] [place] [address] [address] Potassium [Moles/Vol] 5.3 mmol/L High 3.5-5.1 [facility] Comment on above: Result Comment: M-CH EMISTRY SPECIMEN MODERATELY HEMOLYZED RESULTS MAY NOT BE ACCURATE Performed By: #### L [id number] #### [facility] ([facility]) [address] [place] [address] Sodium [Moles/Vol] 138 mmol/L Normal 136-145 [facility] Comment on above: Performed By: #### L [id number] #### [facility] ([facility]) [address] [place] [address] Urea nitrogen [Mass/Vol] 14 mg/dL Normal 7-25 [facility] Comment on above: Performed By: #### L [id number] #### [facility] ([facility]) [address] [place] [address] UREA NITROGEN/CREATININE (MASS RATIO) IN SER/PLAS 18.2 Normal [facility] Comment on above: Performed By: #### L [id number] #### [facility] ([facility]) [address] [place] [address] Basic Metabolic Profon 12-25 Anion gap [Moles/Vol] 12 mmol/L Normal 9-17 [facility] Comment on above: Performed By: #### U KYE AGUILERA #### [place] [id number] Electrical Hardware Engineer: Paddy Juares MD Calcium [Mass/Vol] 8.4 mg/dL Low 8.6-10.4 [facility] Comment on above: Performed By: #### U MICAO, UAX #### [place] [id number] Electrical Hardware Engineer: Paddy Juares MD Chloride [Moles/Vol] 103 mmol/L Normal 98-107 [facility] Comment on above: Performed By: #### U MICAO, UAX #### [place] [id number] Electrical Hardware Engineer: Paddy Juares MD CO2 [Moles/Vol] 25 mmol/L Normal 20-31 [facility] Comment on above: Performed By: #### U MICAO, UAX #### [place] [id number] Electrical Hardware Engineer: Paddy Juares MD Creatinine [Mass/Vol] 0.72 mg/dL Normal 0.50-0.90 [facility] Comment on above: Performed By: #### U MICAO, UAX #### [place] [id number] Electrical Hardware Engineer: Paddy Juares MD GFR/1.73 sq M.predicted among non-blacks MDRD (S/P/Bld) [Vol rate/Area] mL/min/{1.73_m2} Normal >60 [facility] Comment on above: Result Comment: These [...] Performed By: #### Jonh AGUILERA UAX #### [place] [id number] Electrical Hardware Engineer: Paddy Juares MD Glucose [Mass/Vol] 79 mg/dL Normal 70-99 [facility] Comment on above: Performed By: #### U WILLY UAX #### [place] [id number] Electrical Hardware Engineer: Paddy Juares MD Potassium [Moles/Vol] 3.7 mmol/L Normal 3.7-5.3 [facility] Comment on above: Performed By: #### Jonh AGUILERA UAX #### [place] [id number] Electrical Hardware Engineer: Paddy Juares MD Sodium [Moles/Vol] 140 mmol/L Normal 135-144 [facility] Comment on above: Performed By: #### Jonh AGUILERA UAX #### [place] [id number] Electrical Hardware Engineer: Paddy Juares MD Urea nitrogen [Mass/Vol] 13 mg/dL Normal 8-23 [facility] Comment on above: Performed By: #### U WILLY UAX #### [place] [id number] Electrical Hardware Engineer: Paddy Juares MD Brain Natri. Peptideon 12-25 Natriuretic peptide B (Bld) [Mass/Vol] 8736 pg/mL High <300 [facility] Comment on above: Result Comment: An age-independent cutoff point of 300 pg/ml has a 98% negative predictive value excluding acute heart failure. Performed By: #### U WILLY UAX #### [facility] [address] [place] [address] Electrical Hardware Engineer: Paddy Juares MD CBCon 12-25-2022 Hemoglobin (Bld) [Mass/Vol] 14.0 g/dL Normal 12.0-16.0 [facility] Comment on above: Performed By: #### L [id number] #### [facility] ([facility]) [address] [place] [address] Performed By: #### Jonh AGUILERA UAX #### [facility] [address] [place] [address] Electrical Hardware Engineer: Paddy Juares MD Erythrocyte distribution width (RBC) [Ratio] 21.7 % High 11.5-15.0 [facility] Comment on above: Performed By: #### L [id number] #### [facility] ([facility]) [address] [place] [address] ERYTHROCYTE MEAN CORPUSCULAR HEMOGLOBIN CONCENTRATION (G/DL) BY AUTOMATED 31.1 g/dL Low 32.0-35.0 [facility] Comment on above: Performed By: #### L [id number] #### [facility] ([facility]) [address] [place] [address] Hematocrit (Bld) [Volume fraction] 45.0 % Normal 36.0-48.0 [facility] Comment on above: Performed By: #### L [id number] #### [facility] ([facility]) [address] [place] [address] MCH (RBC) [Entitic mass] 28.9 pg Normal 27.0-33.0 [facility] Comment on above: Performed By: #### L [id number] #### [facility] ([facility]) [address] [place] [address] MCV (RBC) [Entitic vol] 92.8 fL Normal 82.0-98.0 [facility] Comment on above: Performed By: #### L [id number] #### [facility] ([facility]) [address] [place] [address] PLATELETS (10*3/UL) IN BLOOD AUTOMATED COUNT 327 10*3/uL Normal 150-400 [facility] Comment on above: Performed By: #### L [id number] #### [facility] ([facility]) [address] [place] [address] RBC (Bld) [#/Vol] 4.85 10*6/uL Normal 3.80-5.00 [facility] Comment on above: Performed By: #### L [id number] #### [facility] ([facility]) [address] [place] [address] WBC (Bld) [#/Vol] 9.86 10*3/uL Normal 4.00-10.60 [facility] Comment on above: Performed By: #### L [id number] #### [facility] ([facility]) [address] [place] [address] CBC with Diffon 12-25-2022 Abs. Basophil 0.00 k/uL Normal 0.0-0.2 [facility] Comment on above: Performed By: #### Jonh AGUILERA UAX #### [place] [id number] Electrical Hardware Engineer: Paddy Juares MD Abs.Neutrophil (Seg) 9.63 k/uL High 1.8-7.7 [facility] Comment on above: Performed By: #### U WILLY UAX #### [place] [id number] Electrical Hardware Engineer: Paddy Juares MD Basophils/100 WBC (Bld) 0 % Normal 0-2 [facility] Comment on above: Performed By: #### U WILLY UAX #### [place] [id number] Electrical Hardware Engineer: Paddy Juares MD Eosinophils (Bld) [#/Vol] 0.00 10*3/uL Normal 0.0-0.4 [facility] Comment on above: Performed By: #### U MICAO, UAX #### [place] [id number] Electrical Hardware Engineer: Paddy Juares MD Eosinophils/100 WBC (Bld) 0 % Low 1-4 [facility] Comment on above: Performed By: #### U MICAO, UAX #### [place] [id number] Electrical Hardware Engineer: Paddy Juares MD Lymphocytes (Bld) [#/Vol] 0.32 10*3/uL Low 1.0-4.8 [facility] Comment on above: Performed By: #### U MAILEO, UAX #### [place] [id number] Electrical Hardware Engineer: Paddy Juares MD Lymphocytes/100 WBC (Bld) 3 % Low 24-44 [facility] Comment on above: Performed By: #### U WILLY, UAX #### [place] [id number] Electrical Hardware Engineer: Paddy Juares MD Monocytes (Bld) [#/Vol] 0.75 10*3/uL Normal 0.1-0.8 [facility] Comment on above: Performed By: #### U MAILEO, UAX #### [place] [id number] Electrical Hardware Engineer: Paddy Juares MD Monocytes/100 WBC (Bld) 7 % Normal 1-7 [facility] Comment on above: Performed By: #### U MICAO, UAX #### [place] [id number] Electrical Hardware Engineer: Paddy Juares MD Morphology Juan Manuel (Bld) [Interp] ANISOCYTOSIS PRESENT Normal [facility] Comment on above: Performed By: #### U MAILEO, UAX #### [place] [id number] Electrical Hardware Engineer: Paddy Juares MD Neutrophil (Seg) 90 % High 36-66 [facility] Comment on above: Performed By: #### U WILLY, UAX #### [place] [id number] Electrical Hardware Engineer: Paddy Juares MD Erythrocyte distribution width (RBC) [Ratio] 23.0 % High 12.5-15.4 [facility] Comment on above: Performed By: #### U WILLY, UAX #### [place] [id number] Electrical Hardware Engineer: Paddy Juares MD Hematocrit (Bld) [Volume fraction] 44.7 % Normal 36-46 [facility] Comment on above: Performed By: #### U WILLY, UAX #### [place] [id number] Electrical Hardware Engineer: Paddy Juares MD MCH (RBC) [Entitic mass] 29.1 pg Normal 26-34 [facility] Comment on above: Performed By: #### U MAILEO, UAX #### [place] [id number] Electrical Hardware Engineer: Paddy Juares MD MCHC (RBC) [Mass/Vol] 31.3 g/dL Normal 31-37 [facility] Comment on above: Performed By: #### U MICAO, UAX #### [place] [id number] Electrical Hardware Engineer: aPddy Juares MD MCV (RBC) [Entitic vol] 92.9 fL Normal 80-100 [facility] Comment on above: Performed By: #### U MICAO, UAX #### [place] [id number] Electrical Hardware Engineer: Paddy Juares MD Platelet mean volume (Bld) [Entitic vol] 10.5 fL Normal 8.0-14.0 [facility] Comment on above: Performed By: #### U MAILEO, UAX #### [place] [id number] Electrical Hardware Engineer: Paddy Juares MD Platelets (Bld) [#/Vol] 289 10*3/uL Normal 140-450 [facility] Comment on above: Performed By: #### U MAILEO, UAX #### [place] [id number] Electrical Hardware Engineer: Paddy Juares MD RBC (Bld) [#/Vol] 4.81 10*6/uL Normal 4.0-5.2 [facility] Comment on above: Performed By: #### U MICAO, UAX #### [place] [id number] Electrical Hardware Engineer: Paddy Juares MD WBC (Bld) [#/Vol] 10.7 10*3/uL Normal 3.5-11.0 [facility] Comment on above: Performed By: #### U MICAO, UAX #### [place] [id number] Electrical Hardware Engineer: Paddy Juares MD Specimen Rejectionon 023 Reason for rejection Unable to perform testing: Specimen quantity not sufficient. Normal [facility] Comment on above: Performed By: #### U MAILEO, UAX #### [address] [address] Electrical Hardware Engineer: Paddy Juares MD Source of sample .BLOOD Normal [facility] Comment on above: Performed By: #### U MICAO, UAX #### [address] [address] Electrical Hardware Engineer: Paddy Juares MD Test ordered BMP TROPI BNP Normal [facility] Comment on above: Performed By: #### U MAILEO, UAX #### [address] [address] Electrical Hardware Engineer: Paddy Juares MD Troponinon 12-25-2022 Troponin, High Sens 51 ng/L High 0-14 [facility] Comment on above: Result Comment: High Sensitivity Troponin values cannot be compared with other Troponin methodologies. Performed By: #### T ROPI #### [address] [address] Electrical Hardware Engineer: Paddy Juares MD Troponin, High Sens 50 ng/L High 0-14 [facility] Comment on above: Result Comment: High Sensitivity Troponin values cannot be compared with other Troponin methodologies. Performed By: #### U MICAO, UAX #### [address] [address] Electrical Hardware Engineer: Paddy Juares MD UA w/Reflex Cultureon 2022 Bilirubin, SemiQt,Ur Negative Normal NEG [facility] Comment on above: Performed By: #### U MICAO, UAX #### [address], [place] [id number] Electrical Hardware Engineer: Paddy Juares MD Blood, Urine Negative Normal NEG [facility] Comment on above: Performed By: #### U MICAO, UAX #### [address] [id number] Electrical Hardware Engineer: Paddy Juares MD Clarity (U) Clear Normal CLEAR [facility] Comment on above: Performed By: #### U MICAO, UAX #### [address] [phone] Electrical Hardware Engineer: Paddy Juares MD Color (U) Yellow Normal YEL [facility] Comment on above: Performed By: #### U MICAO, UAX #### [place] [id number] Electrical Hardware Engineer: Paddy Juares MD Glucose Ql (U) Negative Normal NEG [facility] Comment on above: Performed By: #### U MICAO, UAX #### [address] [phone] Electrical Hardware Engineer: Paddy Juares MD Ketones Ql (U) Negative Normal NEG [facility] Comment on above: Performed By: #### U MICAO, UAX #### [address] [phone] Electrical Hardware Engineer: Paddy Juares MD Leukocyte esterase Test strip Ql (U) Negative Normal NEG [facility] Comment on above: Performed By: #### U MICAO, UAX #### [address] [id number] Electrical Hardware Engineer: Paddy Juares MD Nitrite,Ur Positive Abnormal NEG [facility] Comment on above: Performed By: #### U MICAO, UAX #### [place] [id number] Electrical Hardware Engineer: Paddy Juares MD PH,Ur 8.0 Normal 5.0-8.0 [facility] Comment on above: Performed By: #### U MICAO, UAX #### [place] [address] Electrical Hardware Engineer: Paddy Juares MD Protein Ql (U) Negative Normal NEG [facility] Comment on above: Performed By: #### U MICAO, UAX #### [place] [id number] Electrical Hardware Engineer: Paddy Juares MD Spec. [place],Ur 1.015 Normal 1.005-1.030 [facility] Comment on above: Performed By: #### U MICAO, UAX #### [place] [id number] Electrical Hardware Engineer: Paddy Juares MD Urobilinogen,Ur Normal Normal NORM [facility] Comment on above: Performed By: #### U MICAO, UAX #### [place] [address] Electrical Hardware Engineer: Paddy Juares MD URINALYSISon 12-25-2022 BILIRUBIN, TOTAL PRESENCE IN URINE Negative Normal Negative [facility] Comment on above: Order Comment: Micro scopics not performed on urines with negative chemical reactions unless requested on original order. Performed By: #### L [id number] #### [facility] ([facility]) [address] [place] [address] Clarity (U) Clear Normal Clear [facility] Comment on above: Order Comment: Micro scopics not performed on urines with negative chemical reactions unless requested on original order. Performed By: #### L [id number] #### [facility] ([facility]) [address] [place] [address] Color (U) Yellow Normal Yellow [facility] Comment on above: Order Comment: Micro scopics not performed on urines with negative chemical reactions unless requested on original order. Performed By: #### L [id number] #### [facility] ([facility]) [address] [place] [address] Glucose (U) [Mass/Vol] Negative Normal Negative [facility] Comment on above: Order Comment: Micro scopics not performed on urines with negative chemical reactions unless requested on original order. Performed By: #### L [id number] #### [facility] ([facility]) [address] [place] [address] HEMOGLOBIN PRESENCE IN URINE Negative Normal Negative [facility] Comment on above: Order Comment: Micro scopics not performed on urines with negative chemical reactions unless requested on original order. Performed By: #### L [id number] #### [facility] ([facility]) [address] [place] [address] Ketones Ql (U) Negative Normal Negative [facility] Comment on above: Order Comment: Micro scopics not performed on urines with negative chemical reactions unless requested on original order. Performed By: #### L [id number] #### [facility] ([facility]) [address] [place] [address] LEUKOCYTE ESTERASE PRESENCE IN URINE BY TEST STRIP Negative Normal Negative [facility] Comment on above: Order Comment: Micro scopics not performed on urines with negative chemical reactions unless requested on original order. Performed By: #### L [id number] #### [facility] ([facility]) [address] [place] [address] NITRITE PRESENCE IN URINE Negative Normal Negative [facility] Comment on above: Order Comment: Micro scopics not performed on urines with negative chemical reactions unless requested on original order. Performed By: #### L [id number] #### [facility] ([facility]) [address] [place] [address] pH (U) 8.0 [pH] Normal 5.0-8.0 [facility] Comment on above: Order Comment: Micro scopics not performed on urines with negative chemical reactions unless requested on original order. Performed By: #### L [id number] #### [facility] ([facility]) [address] [place] [address] Protein (U) [Mass/Vol] Negative Normal Negative [facility] Comment on above: Order Comment: Micro scopics not performed on urines with negative chemical reactions unless requested on original order. Performed By: #### L [id number] #### [facility] ([facility]) [address] [place] [address] Specific gravity (U) [Rel density] 1.009 Low 1.015-1.020 [facility] Comment on above: Order Comment: Micro scopics not performed on urines with negative chemical reactions unless requested on original order. Performed By: #### L [id number] #### [facility] ([facility]) [address] [place] [address] URINE CULTURE, ROUTINEon Bacteria identified Cx Nom (U) <10,000 CFU/ML No Significant Growth Normal [facility] Comment on above: Performed By: #### L [id number] #### [facility] ([facility]) [address] [place] [address] Urinalysis,Microon 3 Bacteria MANY Abnormal NONE [facility] Comment on above: Performed By: #### U WILLY UAX #### [address] [address] Electrical Hardware Engineer: Paddy Juares MD Epithelial cells LM Ql (Urine sed) 0 TO 2 Normal 0-5 [facility] Comment on above: Performed By: #### U WILLY UAX #### [address] [address] Electrical Hardware Engineer: Paddy Juares MD Other Observations Utilizing a urinalysis as the only screening method to exclude a potential Abnormal NREQ [facility] Comment on above: Result Comment: urop athogen can be unreliable in many patient populations. Rapid screening tests are less sensitive than culture and if UTI is a clinical possibility, culture should be considered despite a negative urinalysis. Performed By: #### U WILLY, UAX #### [facility] [address] [place], [place] [id number] Electrical Hardware Engineer: Paddy Juares MD Urine RBC's 0 TO 2 Normal 0-2 [facility] Comment on above: Performed By: #### Jonh AGUILERA UAX #### [address] [phone] Electrical Hardware Engineer: Paddy Juares MD Urine WBC's 0 TO 2 Normal 0-5 [facility] Comment on above: Performed By: #### Jonh AGUILERA UAX #### [address] [phone] Electrical Hardware Engineer: Paddy Juares MD BASIC METABOLIC PANELon 05-0 Anion gap [Moles/Vol] 9 mmol/L Normal 7-20 [facility] Comment on above: Performed By: #### L [id number] #### [facility] ([facility]) [address] [place] [address] Calcium [Mass/Vol] 7.5 mg/dL Low 8.6-10.3 [facility] Comment on above: Performed By: #### L [id number] #### [facility] ([facility]) [address] [place] [address] Chloride [Moles/Vol] 101 mmol/L Normal 98-107 [facility] Comment on above: Performed By: #### L [id number] #### [facility] ([facility]) [address] [place] [address] CO2 [Moles/Vol] 36 mmol/L High 21-31 [facility] Comment on above: Performed By: #### L [id number] #### [facility] ([facility]) [address] [place] [address] Creatinine [Mass/Vol] 0.83 mg/dL Normal 0.60-1.20 [facility] Comment on above: Performed By: #### L [id number] #### [facility] ([facility]) [address] [place] [address] GLOMERULAR FILTRATION RATE ML/MIN/1.73 SQ M.PREDICTED 68.6 mL/min/1.73m*2 Normal >60.0 [facility] Comment on above: Result Comment: The [facility]???s estimated glomerular filtration rate (eGFR) will [...] individuals. Performed By: #### L [id number] #### [facility] ([facility]) [address] [place] [address] Glucose [Mass/Vol] 136 mg/dL High 70-100 [facility] Comment on above: Performed By: #### L [id number] #### [facility] ([facility]) [address] [place] [address] Potassium [Moles/Vol] 3.3 mmol/L Low 3.5-5.1 [facility] Comment on above: Performed By: #### L [id number] #### [facility] ([facility]) [address] [place] [address] Sodium [Moles/Vol] 143 mmol/L Normal 136-145 [facility] Comment on above: Performed By: #### L [id number] #### [facility] [address] [place] [address] Urea nitrogen [Mass/Vol] 17 mg/dL Normal 7-25 [facility] Comment on above: Performed By: #### L [id number] #### [facility] [address] [place] [address] UREA NITROGEN/CREATININE (MASS RATIO) IN SER/PLAS 20.5 Normal [facility] Comment on above: Performed By: #### L [id number] #### [facility] ([facility]) [address] [place] [address] CBCon 12-17-2022 Erythrocyte distribution width (RBC) [Ratio] 20.5 % High 11.5-15.0 [facility] Comment on above: Performed By: #### L [id number] #### [facility] ([facility]) [address] [place] [address] ERYTHROCYTE MEAN CORPUSCULAR HEMOGLOBIN CONCENTRATION (G/DL) BY AUTOMATED 29.4 g/dL Low 32.0-35.0 [facility] Comment on above: Performed By: #### L [id number] #### [facility] ([facility]) [address] [place] [address] Hematocrit (Bld) [Volume fraction] 43.6 % Normal 36.0-48.0 [facility] Comment on above: Performed By: #### L [id number] #### [facility] ([facility]) [address] [place] [address] Hemoglobin (Bld) [Mass/Vol] 12.8 g/dL Normal 12.0-15.0 [facility] Comment on above: Performed By: #### L [id number] #### [facility] [address] [place] [address] MCH (RBC) [Entitic mass] 28.1 pg Normal 27.0-33.0 [facility] Comment on above: Performed By: #### L [id number] #### [facility] [address] [place] [address] MCV (RBC) [Entitic vol] 95.6 fL Normal 82.0-98.0 [facility] Comment on above: Performed By: #### L [id number] #### [facility] ([facility]) [address] [place] [address] PLATELETS (10*3/UL) IN BLOOD AUTOMATED COUNT 210 10*3/uL Normal 150-400 [facility] Comment on above: Performed By: #### L [id number] #### [facility] ([facility]) [address] [place] [address] RBC (Bld) [#/Vol] 4.56 10*6/uL Normal 3.80-5.00 [facility] Comment on above: Performed By: #### L [id number] #### [facility] ([facility]) [address] [place] [address] WBC (Bld) [#/Vol] 6.10 10*3/uL Normal 4.00-10.60 [facility] Comment on above: Performed By: #### L [id number] #### [facility] ([facility]) [address] [place] [address] DIGOXIN LEVELon 12-17-2022 DIGOXIN (NG/ML) IN SER/PLAS 1.3 ng/mL Normal 0.7-2 [facility] Comment on above: Performed By: #### L [id number] #### [facility] ([facility]) [address] [place] [address] EKG Rhythm Stripon 3 [facility] Lactate Dehydrogenaseon LDH [Catalytic activity/Vol] 418 U/L High 135-214 [facility] Comment on above: Performed By: #### L D #### [facility] [address] [place] [address] Electrical Hardware Engineer: Rogelio Franks MD #### TROPI, BMP, PT, TP #### [facility] [address] Electrical Hardware Engineer: Paddy Juares MD Cholesterol in LDL [Mass/Vol] 418 U/L High 135 - 214 U/L [facility] Interpretation and review of laboratory results Abnormal [facility] EKG Rhythm Stripon 3 [facility] No Panel Informationon 12-13 Successful ultrasoun d guided thoracentesis. [facility] Nilo Muro MD - 12/13/2022 PROCEDURE: [...] chest with one percent lidocaine. A 5 Honduran Yueh needle was advanced into the pleural [...] was removed. IMPRESSION: Successful ultrasound guided thoracentesis. [facility] [employer] Work Phone: Radiology Study observation (narrative) [facility] [employer] Work Phone: No Panel InformationOrdered By: Nilo Rawls on 12-13-2022 [facility] Work Phone: Protein, Totalon 12-13-2022 Protein [Mass/Vol] 5.7 g/dL Low 6.4-8.3 [facility] Comment on above: Performed By: #### L D #### [facility] [place] [id number] Electrical Hardware Engineer: Rogelio Franks MD #### TROPI, BMP, PT, TP #### [address] [address] Electrical Hardware Engineer: Paddy Juares MD Interpretation and review of laboratory results Abnormal [facility] Protein [Mass/Vol] 5.7 g/dL Low 6.4 - 8.3 g/dL [facility] Lactate, Sepsison 12-12-2022 Lactic Acid, Sepsis 2.1 mmol/L High 0.5-1.9 [facility] Comment on above: Performed By: #### Jonh AGUILERA UAX #### [address] [address] Electrical Hardware Engineer: Paddy Juares MD Interpretation and review of laboratory results Abnormal [facility] Lactic Acid, Sepsis 2.1 mmol/L High 0.5 - 1. 9 mmol/L [facility] Lactic Acid, Sepsis 2.9 mmol/L High 0.5-1.9 [facility] Comment on above: Performed By: #### Jonh AGUILERA UAX #### [address] [address] Electrical Hardware Engineer: Paddy Juares MD Interpretation and review of laboratory results Abnormal [facility] Lactic Acid, Sepsis 2.9 mmol/L High 0.5 - 1. 9 mmol/L [facility] Microscopic Urinalysison Bacteria, UA MANY Abnormal None [facility] Epithelial Cells UA TOO NUMEROUS TO COUNT [facility] Interpretation and review of laboratory results Abnormal [facility] Other Observations UA Utilizing a urinalysis as the only screening method to exclude a potential uropathogen can be unreliable in many patient populations. Rapid screening tests are less sensitive than culture and if UTI is a clinical possibility, culture should be considered despite a negative urinalysis. Abnormal NOT REQ. [facility] RBC clumps Auto (Urine sed) [#/Area] 0 TO 2 [facility] WBC, UA 0 TO 2 [facility] UA w/Reflex Cultureon 2022 Bilirubin, SemiQt,Ur Negative Normal NEG [facility] Comment on above: Performed By: #### U AX, UMICAO #### [place] [address] Electrical Hardware Engineer: Paddy Juares MD Blood, Urine Negative Normal NEG [facility] Comment on above: Performed By: #### U AX, UMICAO #### [place] [address] Electrical Hardware Engineer: Paddy Juares MD Clarity (U) Cloudy Abnormal CLEAR [facility] Comment on above: Performed By: #### U AX, UMICAO #### [place] [address] Electrical Hardware Engineer: Paddy Juares MD Color (U) Yellow Normal YEL [facility] Comment on above: Performed By: #### U AX, UMICAO #### [place] [address] Electrical Hardware Engineer: Paddy Juares MD Glucose Ql (U) Negative Normal NEG [facility] Comment on above: Performed By: #### U AX, UMICAO #### [place] [address] Electrical Hardware Engineer: Paddy Juares MD Ketones Ql (U) Negative Normal NEG [facility] Comment on above: Performed By: #### U AX, UMICAO #### [place] [address] Electrical Hardware Engineer: Paddy Juares MD Leukocyte esterase Test strip Ql (U) Negative Normal NEG [facility] Comment on above: Performed By: #### U AX, UMICAO #### [place] [address] Electrical Hardware Engineer: Paddy Juares MD Nitrite,Ur Negative Normal NEG [facility] Comment on above: Performed By: #### U AX, UMICAO #### [place] [address] Electrical Hardware Engineer: Paddy Juares MD PH,Ur 7.0 Normal 5.0-8.0 [facility] Comment on above: Performed By: #### U AX, UMICAO #### [place] [address] Electrical Hardware Engineer: Paddy Juares MD Protein Ql (U) Negative Normal NEG [facility] Comment on above: Performed By: #### U AX, UMICAO #### [place] [address] Electrical Hardware Engineer: Paddy Juares MD Spec. [place],Ur 1.015 Normal 1.005-1.030 [facility] Comment on above: Performed By: #### U AX, UMICAO #### [address] [address] Electrical Hardware Engineer: Paddy Juares MD Urobilinogen,Ur Normal Normal NORM [facility] Comment on above: Performed By: #### U FRANKY DAWKINS #### [address] [address] Electrical Hardware Engineer: Paddy Juares MD Urinalysis with Reflex to Cu ltureon 12-12-2022 Bilirubin Urine Negative NEGATIVE [facility] Color, UA Yellow Yellow [facility] Glucose Auto test strip (U) [Mass/Vol] Negative NEGATIVE [facility] Interpretation and review of laboratory results Abnormal [facility] Ketones (U) [Mass/Vol] Negative NEGATIVE [facility] Leukocyte esterase Auto test strip Ql (U) Negative NEGATIVE [facility] Nitrite Auto test strip Ql (U) Negative NEGATIVE [facility] Protein (U) [Mass/Vol] 7.0 mg/dL 5.0 - 8.0 [facility] Protein (U) [Mass/Vol] Negative NEGATIVE [facility] Specific [place], UA 1.015 1.005 - 1.030 [facility] Turbidity UA Cloudy Abnormal Clear [facility] Urine Hgb Negative NEGATIVE [facility] Urobilinogen, Urine Normal Normal [facility] Urinalysis,Microon 3 Bacteria MANY Abnormal NONE [facility] Comment on above: Performed By: #### U FRANKY DAWKINS #### [address] [address] Electrical Hardware Engineer: Paddy Juares MD Epithelial cells LM Ql (Urine sed) TOO NUMEROUS TO COUNT Normal 0-5 [facility] Comment on above: Performed By: #### U FRANKY DAWKINS #### [address] [address] Electrical Hardware Engineer: Paddy Juares MD Other Observations Utilizing a urinalysis as the only screening method to exclude a potential Abnormal NREQ [facility] Comment on above: Result Comment: urop athogen can be unreliable in many patient populations. Rapid screening tests are less sensitive than culture and if UTI is a clinical possibility, culture should be considered despite a negative urinalysis. Performed By: #### U AX, UMICAO #### [facility] [address] [place], [place] [id number] Electrical Hardware Engineer: Paddy Juares MD Urine RBC's 0 TO 2 Normal 0-2 [facility] Comment on above: Performed By: #### U AX, UMICAO #### [place] [address] Electrical Hardware Engineer: Paddy Juares MD Urine WBC's 0 TO 2 Normal 0-5 [facility] Comment on above: Performed By: #### U AX, UMICAO #### [address] [id number] Electrical Hardware Engineer: Paddy Juares MD XR CHEST PORTABLEon [...] Tim Sánchez MD 12/12/22 Final result Normal [facility] Unchanged chest demonstrating cardiomegaly and right [...] chest demonstrating cardiomegaly and right pleural effusion [employer] Phone: Radiology Study observation (narrative) [employer] Phone: XR CHEST PORTABLEOrdered By: Tim Sánchez on 12-12-2022 [employer] Phone: ECHO Complete 2D W Doppler W ColorOrdered By: Tyrese Clemons on 12-11-2022 Left ventricular Ejection fraction 33 [employer] Phone: LVEF MODALITY ECHO [employer] Phone: [employer] Phone: ECHO Complete 2D W Doppler W Coloron 12-11-2022 [facility] Transthoracic Echocardiography Report (TTE) Patient Name MINARCIN Date of Study 12/10/2022 REBEKAH Date of 1935 Gender Female Age 87 year(s) Race Room Number PB324 Height: 64 inch, 162.56 cm Corporate ID [id number] Weight: 116 pounds, 52.6 kg # Patient Acct [id number] BSA: 1.55 m^2 BMI: 19.91 kg/m^2 # MR # [id number] Business Development Executive Samy Man [facility] Interpreting Physician Tyrese Clemons Fellow Referring Nurse Practitioner Interpreting Referring Physician Stephen Cardona Type of Study TTE procedure:2D Echocardiogram, M-Mode, Doppler, Color Doppler. Procedure Date Date: 12/10/2022 Start: 03:57 PM Study Location: [facility] Technical Quality: Adequate visualization Indications:Congestiv e heart [...] Clemons, / Result, Unknown Provider - 12/11/2022 [facility] Transthoracic Echocardiography Report (TTE) Patient Name TERESA Date of Study 12/10/2022 REBEKAH Date of 1935 Gender Female Age 87 year(s) Race Room Number PB324 Height: 64 inch, 162.56 cm Corporate ID [id number] Weight: 116 pounds, 52.6 kg # Patient Acct [id number] BSA: 1.55 m^2 BMI: 19.91 kg/m^2 # MR # [id number] Business Development Executive Samy Man, [facility] Interpreting Physician Tyrese Clemons Fellow Referring Nurse Practitioner Interpreting Referring Physician Stephen Gamboa Fellow Type of Study TTE procedure:2D Echocardiogram, M-Mode, Doppler, Color Doppler. Procedure Date Date: 12/10/2022 Start: 03:57 PM Study Location: [facility] Technical Quality: Adequate visualization Indications:Congestiv e heart [...] Gradient: 1.96 mmHg Estimated PASP: 35.46 mmHg [employer] Phone: EKG 12 Leadon 12-11-2022 Atrial Rate 75 BPM [employer] Phone: Q-T Interval 418 ms [employer] Phone: QRS Duration 124 ms [employer] Phone: QTc Calculation (Bazett) 466 ms [employer] Phone: R [place] 2 degrees [employer] Phone: T [place] -91 degrees [employer] Phone: Ventricular Rate 75 BPM [employer] Phone: Atrial fibrillation Right bundle branch block [...] Right bundle branch block is now Present [facility] [email or web address] Work Phone: [employer] Work Phone: EKG Rhythm Stripon 3 [facility] Common Sensing [facility] FLUORO FOR SURGICAL PROCEDUR ESon 12-11-2022 FLUORO FOR SURGICAL PROCEDURES Radiology exam is complete. No Radiologist dictation. Please follow up with ordering provider. Final result Normal [facility] Radiology exam is complete. No Radiologist dictation. Please follow up with ordering provider. [facility] RIS CONSOLIDATED Basic Metabolic Panelon 05-0 Anion gap [Moles/Vol] 8 mmol/L Low 9 - 17 mmol/L [facility] Calcium [Mass/Vol] 8.4 mg/dL Low 8.6 - 10. 4 mg/dL [facility] Chloride [Moles/Vol] 104 mmol/L 98 - 10 7 mmol/L [facility] CO2 [Moles/Vol] 31 mmol/L 20 - 31 mmol/L [facility] Creatinine [Mass/Vol] 0.99 mg/dL High 0.50 - 0.90 mg/dL [facility] GFR/1.73 sq M.predicted MDRD (S/P/Bld) [Vol rate/Area] 56 mL/min/{1.73_m2} Low - PINF [facility] Comment on above: These results are not [...] 121 mg/dL High 70 - 99 mg/dL [facility] Interpretation and review of laboratory results Abnormal [facility] Potassium [Moles/Vol] 3.8 mmol/L 3.7 - 5.3 mmol/L [facility] Sodium [Moles/Vol] 143 mmol/L 135 - 144 mmol/L [facility] Urea nitrogen [Mass/Vol] 24 mg/dL High 8 - 23 mg/dL [facility] Basic Metabolic Profon 12-10 Anion gap [Moles/Vol] 8 mmol/L Low 9-17 [facility] Comment on above: Performed By: #### L D #### [place] [id number] Electrical Hardware Engineer: Rogelio Franks MD #### TROPI, BMP, PT, TP #### [address] [address] Electrical Hardware Engineer: Paddy Juares MD Calcium [Mass/Vol] 8.4 mg/dL Low 8.6-10.4 [facility] Comment on above: Performed By: #### L D #### [place] [id number] Electrical Hardware Engineer: Rogelio Franks MD #### TROPI, BMP, PT, TP #### [address] [address] Electrical Hardware Engineer: Paddy Juares MD Chloride [Moles/Vol] 104 mmol/L Normal 98-107 [facility] Comment on above: Performed By: #### L D #### [place] [id number] Electrical Hardware Engineer: Rogelio Franks MD #### TROPI, BMP, PT, TP #### [address] [address] Electrical Hardware Engineer: Paddy Juares MD CO2 [Moles/Vol] 31 mmol/L Normal 20-31 [facility] Comment on above: Performed By: #### L D #### [address] [id number] Electrical Hardware Engineer: Rogelio Franks MD #### TROPI, BMP, PT, TP #### [address] [address] Electrical Hardware Engineer: Paddy Juares MD Creatinine [Mass/Vol] 0.99 mg/dL High 0.50-0.90 [facility] Comment on above: Performed By: #### L D #### [address] [address] Electrical Hardware Engineer: Rogelio Franks MD #### TROPI, BMP, PT, TP #### [address] [address] Electrical Hardware Engineer: Paddy Juares MD GFR/1.73 sq M.predicted among non-blacks MDRD (S/P/Bld) [Vol rate/Area] 56 mL/min/{1.73_m2} Low >60 [facility] Comment on above: Result Comment: These [...] secretion. Performed By: #### L D #### [address] [address] Electrical Hardware Engineer: Rogelio Franks MD #### TROPI, BMP, PT, TP #### [address] [address] Electrical Hardware Engineer: Paddy Juares MD Glucose [Mass/Vol] 121 mg/dL High 70-99 [facility] Comment on above: Performed By: #### L D #### [address] [address] Electrical Hardware Engineer: Rogelio Franks MD #### TROPI, BMP, PT, TP #### [place] [id number] Electrical Hardware Engineer: Paddy Juares MD Potassium [Moles/Vol] 3.8 mmol/L Normal 3.7-5.3 [facility] Comment on above: Performed By: #### L D #### [address] [id number] Electrical Hardware Engineer: Rogelio Franks MD #### TROPI, BMP, PT, TP #### [place] [address] Electrical Hardware Engineer: Paddy Juares MD Sodium [Moles/Vol] 143 mmol/L Normal 135-144 [facility] Comment on above: Performed By: #### L D #### [place] [id number] Electrical Hardware Engineer: Rogelio Franks MD #### TROPI, BMP, PT, TP #### [place] [id number] Electrical Hardware Engineer: Paddy Juares MD Urea nitrogen [Mass/Vol] 24 mg/dL High 8-23 [facility] Comment on above: Performed By: #### L D #### [address] [id number] Electrical Hardware Engineer: Rogelio Franks MD #### TROPI, BMP, PT, TP #### [place] [id number] Electrical Hardware Engineer: Paddy Juares MD EKG 12 Leadon 12-10-2022 Atrial Rate 131 BPM AKI [email or web address] Work Phone: Q-T Interval 306 ms [employer] Phone: QRS Duration 114 ms [employer] Phone: QTc Calculation (Bazett) 448 ms [employer] Work Phone: R [place] 21 degrees [employer] Work Phone: T [place] -66 degrees [employer] Phone: Ventricular Rate 129 BPM [employer] Phone: Atrial fibrillation with rapid ventricular response ST & T wave abnormality, consider anterior ischemia Abnormal ECG No previous ECGs available [facility] STV MUSE Result, Unknown Provider - 12/10/2022 Atrial fibrillation with rapid ventricular response ST & T wave abnormality, consider anterior ischemia Abnormal ECG No previous ECGs available [employer] Phone: [employer] Phone: EKG Rhythm Stripon 3 [employer] MRI LUMBAR SPINE WO CONTRAST on 12-10-2022 [...] Thiago Rosenthal MD 12/10/22 Final result Normal [facility] Mild loss of vertebral body height and superior endplate edema versus inflammation at the L3 level that may represent an acute/subacute compression deformity. Remote compression deformity at L1 and L2. Multilevel degenerative change with foraminal narrowing as described above. [facility] RIS CONSOLIDATED EXAMINATION: MRI OF THE [...] stenosis. There is severe bilateral foraminal narrowing. [facility] RIS CONSOLIDATED Thiago Rosenthal MD - [...] change with foraminal narrowing as described above. [employer] Phone: [employer] Phone: Radiology Study observation (narrative) [employer] Phone: MRI THORACIC SPINE WO CONTRA STon [...] and trace left-sided pleural effusion. Interpreted by: Thaigo Rosenthal MD Signed by: Thiago Rosenthal MD 12/10/22 Final result Normal [facility] Remote compression deformity at T4, T6, [...] no canal stenosis or significant foraminal narrowing. [facility] RIS CONSOLIDATED Thiago Rosnethal MD - 12/10/2022 EXAMINATION: MRI OF THE [...] pleural effusion and trace left-sided pleural effusion. [employer] Work Phone: Radiology Study observation (narrative) [employer] Work Phone: MRI THORACIC SPINE WO CARMENCITAA Duglased By: Thiago Rosenthal on 12-10-2022 [facility] Work Phone: PTon 12-10-2022 INR Coag (PPP) [Relative time] 1.2 {INR} Normal [facility] Comment on above: Result Comment: Therapeutic Range: Moderate Anticoagulant Intensity: INR = 2.0-3.0 High Anticoagulant Intensity: INR = 2.5-3.5 Performed By: #### L D #### [address] [id number] Electrical Hardware Engineer: Rogelio Franks MD #### TROPI, BMP, PT, TP #### [address] [address] Electrical Hardware Engineer: Paddy Juares MD PT Coag (PPP) [Time] 12.5 s Normal 9.4-12.6 [facility] Comment on above: Performed By: #### L D #### [facility] [employer] [address] [place], [place] [id number] Electrical Hardware Engineer: Rogelio Franks MD #### TROPI, BMP, PT, TP #### [address] [address] Electrical Hardware Engineer: Paddy Juares MD Protime-INRon 12-10-2022 INR Coag (PPP) [Relative time] 1.2 {INR} [facility] [employer] Comment on above: Therapeutic Range: Moderate Anticoagulant Intensity: INR = 2.0-3.0 High Anticoagulant Intensity: INR = 2.5-3.5 PT Coag (PPP) [Time] 12.5 s [facility] Troponinon 12-10-2022 Troponin, High Sens 35 ng/L High 0-14 [facility] Comment on above: Result Comment: High Sensitivity Troponin values cannot be compared with other Troponin methodologies. Performed By: #### L D #### [facility] [address] [place] [address] Electrical Hardware Engineer: Rogelio Franks MD #### TROPI, BMP, PT, TP #### [facility] [address] [place], [place] [id number] Electrical Hardware Engineer: Paddy Juares MD Interpretation and review of laboratory results Abnormal [facility] Troponin I.cardiac DL <= 0.01 ng/mL [Mass/Vol] 35 ng/L High 0 - 14 ng/L [facility] Comment on above: High Sensitivity Tro ponin values cannot be compared with other Troponin methodologies. [facility] XR CHEST PORTABLEon 12-11-19 XR CHEST PORTABLE [...] Deuce Dubois MD 12/10/22 Final result Normal [facility] Right pleural effusion with associated compressive atelectasis. Bibasilar opacities, also likely atelectatic. Infiltrate a consideration. Cardiomegaly with venous hypertension but no radiographic CHF. [facility] CONSOLIDATED EXAMINATION: ONE XRAY VIEW OF [...] convex-left curvature thoracic spine and some DJD. [facility] CONSOLIDATED Deuce Dubois MD - 12/10/2022 [...] with venous hypertension but no radiographic CHF. [employer] Phone: Radiology Study observation (narrative) [employer] Phone: XR CHEST PORTABLEOrdered By: Deuce Dubois on 12-10-2022 [employer] Phone: CT LUMBAR SPINE WO CONTRASTo n [...] Tim Bishop MD 12/09/22 Final result Normal [facility] 1. Subacute appearin g fractures involving [...] trace ascites, and at least mild anasarca. [facility] RIS CONSOLIDATED EXAMINATION: CT OF THE LUMBAR [...] trace ascites, and at least mild anasarca. [employer] Phone: [employer] Phone: XR LUMBAR SPINE (2-3 VIEWS)o n [...] Tim Bishop MD 12/08/22 Final result Normal [facility] CT LUMBAR SPINE WO CONTRASTo n 12-08-2022 Radiology Study observation (narrative) [employer] Phone: XR LUMBAR SPINE (2-3 VIEWS)o n [...] disc disease. Mild to severe facet arthropathy. [facility] Tim Garcia MD - 12/08/2022 EXAMINATION: 3 [...] spine degenerative changes associated with moderate levoscoliosis. [employer] Phone: Radiology Study observation (narrative) [employer] Phone: XR LUMBAR SPINE (2-3 VIEWS)O rdered By: Tim Bishop on 12-08-2022 [employer] Work Phone: Vital Signs Date Time Vital Sign Value Performing Clinician Sheryli corey 11-12-2024 10:52-0400 Body height 152.4 cm Lili Geller APRNPaperwoven Work Phone: [facility] 11-12-2024 10:52-0400 Body mass index (BMI) [Ratio] 22.26 kg/m2 Lili Geller APRNReaqua SystemsGOLF CLUB HEAD INSPECTOR Work Phone: [facility] 04-03-2025 10:52-0400 Body weight 51.71 kg Lili Geller FIRE ENGINEER-[employer] HEAD INSPECTOR Work Phone: [facility] [employer] 11-12-2024 10:52-0400 Diastolic blood pressure 46 mm[Hg] Lili Geller FIRE ENGINEER-[employer] HEAD INSPECTOR Work Phone: [facility] 11-12-2024 10:52-0400 Heart rate 104 /min Lili Geller FIRE ENGINEER-[employer] HEAD INSPECTOR Work Phone: [facility] [employer] 11-12-2024 10:52-0400 Systolic blood pressure 106 mm[Hg] Lili Geller FIRE ENGINEER-[employer] HEAD INSPECTOR Work Phone: [facility] [employer] 12-14-2022 14:46-0400 Body height 162.6 cm Abdifatah Bridges III, MD Work Phone: [employer] 12-14-2022 08:15-0400 Body temperature 97.3 [degF] Abdifatah Bridges III, MD Work Phone: [employer] 12-14-2022 08:15-0400 Diastolic blood pressure 65 mm[Hg] Abdifatah Bridges III, MD Work Phone: [employer] 12-14-2022 08:15-0400 Heart rate 71 /min Abdifatah Bridges III, MD Work Phone: [employer] 12-14-2022 08:15-0400 Respiratory rate 16 /min Abdifatah Bridges III, MD Work Phone: [employer] 12-14-2022 08:15-0400 SaO2% (BldA) [Mass fraction] 98 % Abdifatah Bridges III, MD Work Phone: [employer] 12-14-2022 08:15-0400 Systolic blood pressure 110 mm[Hg] Abdifatah Bridges III, MD Work Phone: [employer] 12-14-2022 06:00-0400 Body mass index (BMI) [Ratio] 20.06 kg/m2 Abdifatah Bridges III, MD Work Phone: [facility] 12-14-2022 06:00-0400 Body weight 53 kg Abdifatah Bridges III, MD Work Phone: [facility] 12-13-2022 11:54-0400 Diastolic blood pressure 64 mm[Hg] Stv 2 [facility] 12-13-2022 11:54-0400 SaO2% (BldA) [Mass fraction] 100 % Stv 2 [facility] 12-13-2022 11:54-0400 Systolic blood pressure 112 mm[Hg] Stv 2 [facility] Encounters Encounter Date Encounter Type Care Provider Facility Start: 01-28-2025 End: 01-28-2025 ambulatory [facility] Start: 11-12-2024 End: 11-12-2024 Office outpatient visit 10 minutes Lili A Geller FIRE ENGINEER[employer] HEAD INSPECTOR Work Phone: [facility] Comment on above: Status post umbilica l hernia repair, follow-up exam (Primary Dx) Start: 11-12-2024 End: 11-12-2024 ambulatory [facility] Start: 10-29-2024 Encounter for other preprocedural examination DEWEY DIAZ [facility] Start: 10-29-2024 End: 10-31-2024 Evaluation and management of inpatient [facility] Start: 02-12-2024 End: 02-12-2024 Telephone encounter Anabelle [facility] Comment on above: AWV Start: 01-30-2023 End: 01-30-2023 ambulatory ZHEN SOLO [facility] Start: 01-24-2023 End: 01-25-2023 Emergency department patient visit [facility] Start: 12-25-2022 End: 12-26-2022 Emergency department patient visit [facility] Start: 12-13-2022 End: 12-16-2022 ambulatory [facility] Start: 12-13-2022 End: 12-15-2022 Subsequent hospital visit by physician Eddy [employer] Rm 2 [facility] Comment on above: Arrived Start: 12-11-2022 Telephone encounter Alaina Jordan [facility] Start: 12-08-2022 End: 12-14-2022 Evaluation and management of inpatient ELOY SULLIVAN [facility] Start: 12-08-2022 End: 12-14-2022 Evaluation and [...] Vaccines (2 - Td or Tdap) [facility] Start: 08-15-2032 DTaP/Tdap/Td vaccine (2 - Td or Tdap) DTaP/Tdap/Td vaccine (2 - Td or Tdap) [facility] Start: 11-12-2025 Tobacco Screening Tobacco Screening [facility] Start: 04-12-2025 Influenza vaccination Influenza Vacc ine [facility] Start: 07-12-2024 Adult BMI Screening Adult BMI Screen ing [facility] Start: 07-10-2024 Tobacco Screening Tobacco Screening [facility] Start: 04-12-2024 Influenza vaccination Influenza Vacc ine [facility] Start: 11-14-2023 Depression Screening Depression Scre ening [facility] Start: 04-12-2023 Influenza vaccination Influenza Vacc ine [facility] Start: 03-12-2023 Influenza vaccination Flu vacc ine (Season Ended) [facility]: 12-10-2022 Annual Wellness Visi t (AWV) Annual Wellness Visit (AWV) [facility] Start: 2001 Fall Risk Screening Fall Risk Screen ing [facility] Start: 1986 Administration of varicella zoster vaccine Zoster (Shingles) Vaccine (1 of 2) [facility] Start: 1986 Shingles vaccine (1 of 2) [place] gles vaccine (1 of 2) [facility]: 1948 Depression Screen Depression Screen [facility] Start: 1942 Pneumococcal 65+ yea rs Vaccine (1 - PCV) Pneumococcal 65+ years Vaccine (1 - PCV) [facility] Start: 1936 COVID-19 Vaccine (#1) COVID-19 Vacci ne (#1) [facility]: [facility] Medicare Annual Well ness Visit Medicare Annual Wellness Visit [facility] Start: 1936 Tobacco Counseling Tobacco Counselin g [facility] End: 12-13-2022 Culture, Body Fluid Culture, Body Fluid Microbiology Routine One Time for 1 Occurrences starting 12/13/2022 until 12/13/2022 [employer] Phone: Comment on above: One Time for 1 Occur rences starting 12/13/2022 until 12/13/2022 End: 12-13-2022 Cytology, Non-Trailer Park Manager Cytology, Non-Trailer Park Manager Lab Routine One Time for 1 Occurrences starting 12/13/2022 until 12/13/2022 [employer] Phone: Comment on above: One Time for 1 Occur rences starting 12/13/2022 until 12/13/2022 End: 12-13-2022 Glucose, Body Fluid Glucose, Body Fluid Lab Routine One Time for 1 Occurrences starting 12/13/2022 until 12/13/2022 [employer] Phone: Comment on above: One Time for 1 Occur rences starting 12/13/2022 until 12/13/2022 End: 12-11-2022 INITIATE PACU OXYGEN THERAPY PROTOCOL Initiate PACU Oxygen Therapy Protocol Respiratory Care Routine Continuous until discontinued starting 12/11/2022 [employer] Phone: Comment on above: Continuous until dis continued starting 12/11/2022 Intermittent pulse oximetry Pulse Oximetry Spot Check Respiratory Care Routine As Needed until discontinued starting 12/09/2022 [employer] Phone: Comment on above: As Needed until disc ontinued starting 12/09/2022 End: 12-13-2022 Lactate Dehydrogenase, Body Fluid Lactate Dehydrogenase, Body Fluid Lab Routine One Time for 1 Occurrences starting 12/13/2022 until 12/13/2022 [employer] Phone: Comment on above: One Time for 1 Occur rences starting 12/13/2022 until 12/13/2022 Nasal Cannula Oxygen Nasal Cannu la Oxygen Respiratory Care Routine Daily until discontinued starting 12/11/2022 [employer] Phone: Comment on above: Daily until disconti nued starting 12/11/2022 Nasal Cannula Oxygen Nasal Cannu la Oxygen Respiratory Care Routine Daily until discontinued starting 12/12/2022 [employer] Phone: Comment on above: Daily until disconti nued starting 12/12/2022 Oxygen therapy [Mini mum Data Set] Initiate Oxygen Therapy Protocol Respiratory Care Routine As Needed until discontinued starting 12/09/2022 [employer] Phone: Comment on above: As Needed until disc ontinued starting 12/09/2022 Oxygen therapy [Mini mum Data Set] Initiate Oxygen Therapy Protocol Respiratory Care Routine As Needed until discontinued starting 12/11/2022 [employer] Phone: Comment on above: As Needed until disc ontinued starting 12/11/2022 End: 12-13-2022 pH, Body Fluid pH, Body Fluid Lab Routine One Time for 1 Occurrences starting 12/13/2022 until 12/13/2022 [employer] Phone: Comment on above: One Time for 1 Occur rences starting 12/13/2022 until 12/13/2022 End: 12-11-2022 , urine POCT , urine POCT Point of Care Testing Routine One Time for 1 Occurrences starting 12/11/2022 until 12/11/2022 [employer] Phone: Comment on above: One Time for 1 Occur rences starting 12/11/2022 until 12/11/2022 End: 12-13-2022 Protein [Mass/volume] in Serum or Plasma Protein, Total Lab Routine One Time for 1 Occurrences starting 12/13/2022 until 12/13/2022 [employer] Phone: Comment on above: One Time for 1 Occur rences starting 12/13/2022 until 12/13/2022 Immunizations Immunization Date Immunization Notes Care Provider Roland crisostomo 12-24-2022 tuberculin skin test ; unspecified formulation Lili Geller FIRE ENGINEER-GOLF [employer]UB HEAD INSPECTOR Work Phone: [facility] 12-14-2022 tuberculin skin test ; unspecified formulation Lili Geller FIRE ENGINEER-[employer] HEAD INSPECTOR Work Phone: [facility] 08-15-2022 tetanus toxoid, redu rakel diphtheria toxoid, and acellular pertussis vaccine, adsorbed Alaina Hurley RN [facility] Payers Date Payer Category [facility]ayer [facility] [id number] 2023 Medicaid [id number] 2001 Medicare [id number] 2001 Medicare [id number] 1936 Unknown [id number] 1936 Unknown [id number] 1936 Unknown [id number] 1936 Unknown [id number] 1936 Unknown [id number] 1936 Unknown [id number] 1936 Unknown [id number] 1936 Unknown [id number] Social History Date Type Detail Facility Start: 12-09-2022 End: 11-12-2024 Tobacco smoking status NHIS Smokes tobacco daily [facility] Phone: History of tobacco use Cigarette Smoker [facility] Phone: Start: 09-21-2020 End: 12-09-2022 Cigarettes smoked current (pack per day) - Reported 1 [facility] Work Phone: Start: 12-09-2022 End: 11-12-2024 Tobacco use and exposure Smokeless tobacco non-user [employer] Phone: Start: 1935 Sex Assigned At Not on file [employer] Work Phone: Start: 11-13-2022 End: 11-12-2024 Alcohol intake Lifetime non-drinker (finding) [facility] Start: 07-31-2020 End: 09-21-2020 Alcohol Use Disorder Identification Test - Consumption [AUDIT-C] [facility] Work Phone: How often to you hav e a drink containing alcohol? Never [facility] Work Phone: Average Number of Drinks Not on file [employer] Start: 1935 Sex Assigned At Female [facility] Start: 07-08-2023 Gender identity Identifies as female gender (finding) [facility] Start: 07-08-2023 Sexual orientation Heterosexual (finding) [facility] Start: 10-14-2022 End: 11-13-2022 Exposure to SARS-CoV-2 (event) Not sure [facility] [employer] Has the electric, ga s, oil, or water company threatened to shut off services in your home in past 12Mo No [facility] Start: 03-15-2015 Sex [facility] (finding) [facility] Procedure Code Equipment Code Equipment Origin al Text Equipment Identifier Dates Cement Bne Hi Vi sc Radiopaque Kyphon Hv-R - [id number] Start: 12-11-2022 Nail Im 170mm 9m m 125d Shrt Cnn Tfn-Adv Lat Rlf Cut Ti Cocr - [id number] Start: 07-10-2023 Blade Im Nl Au 9 0mm 10.35mm Tfn-Adv Hlcl Fem Prox Ti Niobium - [id number] Start: 07-10-2023 Screw Bn 34mm 5m m 4[address]mm [facility] Strdr Blnt Tip Ti T25 Ft Strl - [id number] Start: 07-10-2023 Goals Date Patient Goal [...] Clinical Notes 12-11-2022 to 11-12-2024 Lili Geller APRN-GOLF [employer]UB HEAD INSPECTOR - 11/12/2024 11:00 AM EDTTelephone Encounter - [...] hernia repair, follow-up exam [Z09] TRENA MARINELLI [facility] General Surgery [place] This note was created with the assistance of a speech recognition program. While intending to generate a timely document that accurately reflects the content of the visit, no guarantee can be provided that every grammatical or spelling mistake has been or will be identified or corrected. Thank you for your understanding. TRENA Marinelli 11/12/24 1102 documented in this encounter [facility] 02-12-2024 Miscellaneous Notes Care Coordination Outreach [...] Nurse or Provider. documented in this encounter [facility] 02-12-2024 Telephone encounter Note Care Coordination [...] Please schedule with AWV Nurse or Provider. [facility] 12-14-2022 Hospital Discharge instructions Thomas Chang MD [...] Primary Emergency Contact: Klarissa Lei Relation: Child Top Frame Fitter needed? No Secondary Emergency Contact: asaddenilsonjay Relation: Child Past Surgical History: Past Surgical History: Procedure Laterality Date KYPHOSIS SURGERY 12/11/2022 SPINE SURGERY N/A 12/11/2022 T10, T11, L3 KYPHOPLASTY WITH KYPHON performed by Deuce Hollis DO at [facility] [place] Immunization History: There is no immunization history on file for this patient. Active Problems: Patient Active Problem List Diagnosis Code Fracture of lumbar spine without cord injury, closed, initial encounter ([facility]) S32.009A Pleural effusion, right J90 Atrial fibrillation with rapid ventricular response ([facility]) I48.91 Anasarca R60.1 Isolation/Infection: Isolation [...] Assisted Dressing Assisted Toileting Assisted Feeding Independent Production Aide Independent Med Delivery whole Wound Care Documentation [...] 11 Discharging to Facility/ Agency Name: Facility: [facility] Address: [address] [place] [address] Ramp Service Employee/Glue Specialty Supervisor signature: PHYSICIAN SECTION Prognosis: Fair Condition at Discharge: Stable Rehab Potential (if transferring to Rehab): Fair Recommended Labs or Other Treatments After Discharge: PT/OT; follow-up with orthopedic surgery and pulmonology as scheduled. Physician Certification: I certify the above information and transfer of Rebekah Lei is necessary for the continuing treatment of the diagnosis listed and that she requires Assisted Facility for greater 30 days. Update Admission H&P: No change in H&P PHYSICIAN SIGNATURE: documented in this encounter [facility] Phone: 12-14-2022 Hospital course Narrative Images from the original note were not included. [facility] Office: [phone] Aditya Zapata DO, Teo Espitia DO, Haroon [...] Gillespie DO, Augustus Pak MD, No Walton, GOLF CLUB HEAD INSPECTOR, Kendra Ramirez CNP, Aviva Barnett, GOLF [employer]UB HEAD INSPECTOR, Hamzah Hartman, GOLF CLUB HEAD INSPECTOR, Yudith Shell, KIRTI, Karissa Nguyen, GOL[employer]UB HEAD INSPECTOR, Julissa Landis, GOLF CLUB HEAD INSPECTOR, Genet Vega, GOLF CLUB HEAD INSPECTOR, Keri Dietz, GOLF CLUB HEAD INSPECTOR, Shirley Helton, GOLF CLUB HEAD INSPECTOR, Deuce Guthrie PA-C, Anabelle [place], SIENE MAKER, Aparna Bryant, GOLF CLUB HEAD INSPECTOR, Rebekah Duran, GOLF CLUB HEAD INSPECTOR [facility] IN-PATIENT SERVICE [facility] Discharge Summary Patient ID: Rebekah Lei : 1935 ACCOUNT: [id number] Patient's PCP: Hawa Garzon Admit Date: 12/08/2022 [...] RDW, PLT, MPV, SEDRATE, CRP, INR, DDIMER, QW0VSAGC, LABABSO in the last 72 hours. Invalid input(s): PT Chemistry:No results for input(s): NA, K, CL, CO2, GLUCOSE, BUN, CREATININE, MG, ANIONGAP, LABGLOM, GFRAA, CALCIUM, CAION, PHOS, PSA, PROBNP, TROPHS, CKTOTAL, CKMB, CKMBINDEX, MYOGLOBIN, DIGOXIN, LACTACIDWB in the last 72 hours.No results for input(s): PROT, LABALBU, LABA1C, B9QCPYN, R6WLNTC, FT4, TSH, AST, ALT, LDH, GGT, ALKPHOS, LABGGT, BILITOT, BILIDIR, AMMONIA, AMYLASE, LIPASE, LACTATE, CHOL, HDL, LDLCHOLESTEROL, CHOLHDLRATIO, TRIG, VLDL, ZNO62OR, PHENYTOIN, PHENYF, URICACID, POCGLU in the last 72 hours. ABG:No results found for: POCPH, PHART, PH, POCPCO2, YFM9QHG, PCO2, POCPO2, PO2ART, PO2, POCHCO3, LLD8MPX, HCO3, NBEA, PBEA, BEART, BE, THGBART, THB, JHH0QAM, RKFD3EWX, F4KWZNDZ, O2SAT, FIO2 No results found for: SPECIAL [...] of discharge. Discharge plan: Disposition: [facility] Physician Follow Up: [place] [address] [facility] [address] Schedule an appointment as soon as possible for a visit in 1 week(s) Hospital follow-up; right-sided pleural effusion Deuce Hollis, DO [address] [facility] [address] Schedule an appointment as soon as possible [...] Your Medications These medications were sent to [address] [phone] - F [id number] [place], [place] [phone] midodrine 10 MG tablet Time spent on discharge is 20 mins in patient examination, evaluation, counseling as well as medication reconciliation, prescriptions for required medications, discharge plan and follow up. Electronically signed by Thomas Chang MD 12/14/2022 9:[address] Hawa Garzon for the opportunity to be involved in this patient's care. documented in this encounter [facility] Phone: 12-13-2022 Note PROCEDURE: ULTRASOUNDGUIDED RIGHT THORACENTESIS [...] chest with one percent lidocaine. A 5 [place]uran Yueh needle was advanced into the pleural [...] by: Nilo Rawls MD 12/13/22 Final result [facility] 12-13-2022 History of Present illness Narrative [...] [Urine:1470] Date 12/13/22 - 12/13/22 2359 Shift 8535-4012 8606-6298 9260-3599 24 Hour Total INTAKE P.O.(mL/kg/hr) 50(0.1) 50 I.V.(mL/kg) 10(0.2) 10(0.2) Shift Total(mL/kg) 50(0.9) 10(0.2) 60(1.1) OUTPUT Urine(mL/kg/hr) 320(0.8) 1150 1470 Shift Total(mL/kg) 320(6) 1150(21.7) 1470(27.8) Weight (kg) 52.9 52.9 52.9 52.9 LABORATORY RESULTS: BLOOD GASES: No results for input(s): POCPH, POCPCO2, POCPO2, POCHCO3, CIQO0IKD in the last 72 hours. COMPLETE BLOOD [...] from the original note were not included. [facility] Office: [phone] Aditya Zapata DO, Teo Espitia DO, Haroon [...] [place], [place], Aparna Bryant CNP, Rebekah Duran, GOLF CLUB HEAD INSPECTOR [facility] IN-PATIENT SERVICE [facility] Progress Note 12/13/2022 10:19 AM Name: Rebekah Lei Acct: [id number] Room[facility] Day: 4 Admit Date: 12/08/2022 8:59 PM [...] RDW, PLT, MPV, SEDRATE, CRP, INR, DDIMER, GK2USZVS, LABABSO in the last 72 hours. Invalid input(s): PT Chemistry: No results for input(s): NA, K, CL, CO2, GLUCOSE, BUN, CREATININE, MG, ANIONGAP, LABGLOM, GFRAA, CALCIUM, CAION, PHOS, PSA, PROBNP, TROPHS, CKTOTAL, CKMB, CKMBINDEX, MYOGLOBIN, DIGOXIN, LACTACIDWB in the last 72 hours. No results for input(s): PROT, LABALBU, LABA1C, W3EPNIV, V6XFQDZ, FT4, TSH, AST, ALT, LDH, GGT, ALKPHOS, LABGGT, BILITOT, BILIDIR, AMMONIA, AMYLASE, LIPASE, LACTATE, CHOL, HDL, LDLCHOLESTEROL, CHOLHDLRATIO, TRIG, VLDL, AVL13WC, PHENYTOIN, PHENYF, URICACID, POCGLU in the last 72 hours. ABG:No results found for: POCPH, PHART, PH, POCPCO2, JYA0NOQ, PCO2, POCPO2, PO2ART, PO2, POCHCO3, IZD7UWT, HCO3, NBEA, PBEA, BEART, BE, THGBART, THB, VUV3JWT, GTTS9VFK, R6JUGWDR, O2SAT, FIO2 No results found for: SPECIAL [...] cord injury, closed, initial encounter ([facility]) 12/09/2022 Yes Pleural effusion, right 12/09/2022 Yes Atrial fibrillation with rapid ventricular response ([facility]) 12/09/2022 Yes Anasarca 12/09/2022 Yes [...] Date 12/12/22 0000 - 12/12/22 2359 Shift 1444-1207 9906-1599 2464-5253 24 Hour Total INTAKE P.O.(mL/kg/hr) 150(0.3) 150 Shift Total(mL/kg) 150(2.8) 150(2.8) OUTPUT Urine(mL/kg/hr) 525(1.2) 525 Shift Total(mL/kg) 525(9.7) 525(9.7) Weight (kg) 53.9 53.9 53.9 53.9 LABORATORY RESULTS: BLOOD GASES: No results for input(s): POCPH, POCPCO2, POCPO2, POCHCO3, KXDJ0YAZ in the last 72 hours. COMPLETE BLOOD [...] cord injury, closed, initial encounter ([facility]) Pleural effusion, right Atrial fibrillation [...] from the original note were not included. [facility] Office: [phone] Aditya Zapata DO, Teo Espitia DO, Haroon [...] Deuce Guthrie PA-C, Anabelle [place], [place], Aparna Bryatn CNP, Rebekah Duran, CORNELIUS [facility] IN-PATIENT SERVICE [facility] Progress Note 12/12/2022 1:25 PM Name: Rebekah Lei Acct: [id number] Room: [facility]/324-01 Day: 3 Admit Date: 12/08/2022 8:59 PM [...] No results for input(s): PROT, LABALBU, LABA1C, Y0CTCXV, B9MJRPA, FT4, TSH, AST, ALT, LDH, GGT, ALKPHOS, LABGGT, BILITOT, BILIDIR, AMMONIA, AMYLASE, LIPASE, LACTATE, CHOL, HDL, LDLCHOLESTEROL, CHOLHDLRATIO, TRIG, VLDL, TWF89KC, PHENYTOIN, PHENYF, URICACID, POCGLU in the last 72 hours. ABG:No results found for: POCPH, PHART, PH, POCPCO2, INN3CIL, PCO2, POCPO2, PO2ART, PO2, POCHCO3, FQG2HZF, HCO3, NBEA, PBEA, BEART, BE, THGBART, THB, DQH1SWR, WUNZ5ZAV, W2QZBCWQ, O2SAT, FIO2 No results found for: SPECIAL [...] cord injury, closed, initial encounter ([facility]) 12/09/2022 Yes Pleural effusion, right 12/09/2022 Yes Atrial fibrillation with rapid ventricular response ([facility]) 12/09/2022 Yes Anasarca 12/09/2022 Yes [...] MD 12/12/2022 1:25 PM Physical Therapy Facility/Department: [facility] ICU Physical Therapy Initial Assessment Name: [...] artery disease), Chronic atrial fibrillation ([facility]), Chronic CHF (congestive heart failure) ([facility]), Compression fracture of body of thoracic vertebra ([facility]), Moderate malnutrition ([facility]), Osteoporosis, and PAD (peripheral artery disease) ([facility]). Past Surgical History: has a [...] reports wall/furniture walking) Transfer Assistance: Independent Active Refrigeration Engineering Teacher: Yes Patient's Refrigeration Engineering Teacher Info: Daughter Mode of Transportation: Car Occupation: [...] Kristina Franks PT Occupational Therapy Facility/Department: [facility] Occupational Therapy Initial Assessment [...] artery disease), Chronic atrial fibrillation ([facility]), Chronic CHF (congestive heart failure) ([facility]), Compression fracture of body of thoracic vertebra ([facility]), Moderate malnutrition ([facility]), Osteoporosis, and PAD (peripheral artery disease) ([facility]). Past Surgical History: has a [...] reports wall/furniture walking) Transfer Assistance: Independent Active Refrigeration Engineering Teacher: Yes Patient's Refrigeration Engineering Teacher Info: Daughter Mode of Transportation: Car Occupation: [...] Hand Dominance Hand Dominance: Right AM-PAC Score [facility] Inpatient Daily Activity Raw Score: 15 (12/12/22 6157) AM-PAC Inpatient ADL T-Scale Score : 34.69 [...] from the original note were not included. [facility] Office: [phone] Aditya Zapata DO, Teo Espitia DO, Haroon [...] Nicolasa Yeh MD, Clara Calles MD, Moustapha Gillesipe DO, Augustus Pak MD, No Walton CNP, Kendra Ramirez CNP, Aviva Barnett CNP, Hamzah Hartman CNP, Yudith Shell DNP, Karissa Nguyen CNP, Julissa Landis, GOLF CLUB HEAD INSPECTOR, Genet Vega, GOLF CLUB HEAD INSPECTOR, Keri Dietz, GOLF CLUB HEAD INSPECTOR, Shirley Helton, GOLF CLUB HEAD INSPECTOR, Deuce Guthrie PA-C, Anabelle Mccoy, SIENE MAKER, Aparna Bryant, CORNELIUS, Rebekah Duran, CORNELIUS [facility] IN-PATIENT SERVICE [facility] Progress Note 12/11/2022 1:46 PM Name: Rebekah Lei Acct: [id number] Room: [facility] Day: 2 Admit Date: 12/08/2022 8:59 [...] No results for input(s): PROT, LABALBU, LABA1C, B3ORBET, J5CZWCA, FT4, TSH, AST, ALT, LDH, GGT, ALKPHOS, LABGGT, BILITOT, BILIDIR, AMMONIA, AMYLASE, LIPASE, LACTATE, CHOL, HDL, LDLCHOLESTEROL, CHOLHDLRATIO, TRIG, VLDL, MUN75ZK, PHENYTOIN, PHENYF, URICACID, POCGLU in the last 72 hours. ABG:No results found for: POCPH, PHART, PH, POCPCO2, VSR0EAR, PCO2, POCPO2, PO2ART, PO2, POCHCO3, UTZ7AVJ, HCO3, NBEA, PBEA, BEART, BE, THGBART, THB, HBC9GAI, WBKF3TWL, A6NMFVFJ, O2SAT, FIO2 No results found for: SPECIAL [...] cord injury, closed, initial encounter ([facility]) 12/09/2022 Yes Pleural effusion, right 12/09/2022 Yes Atrial fibrillation with rapid ventricular response ([facility]) 12/09/2022 Yes Anasarca 12/09/2022 Yes [...] at which time she had an acute NM involving the right coronary artery with subsequent [...] unchanged from a previous study completed at [facility] on September 26, 2021. Electrocardiogram [...] be obtained and operative site marked -Ancef button pusher to OR -IM and pulmonology cleared; Echo [...] original note were not included. Occupational Therapy [facility] Occupational Therapy Not Seen Note DATE: 12/11/2022 NAME: Rebekah Lei : 1935 Patient not seen this date for Occupational Therapy due to: Surgery/Procedure: Pt pending kyphoplasty this date with orthosx Next Scheduled Treatment: Will check back 12/12/2022 Images from the original note were not included. Physical Therapy Physical Therapy Cancel Note DATE: 12/11/2022 NAME: Rebekah Lei : 1935 Patient not seen this date for Physical Therapy due to: Surgery/Procedure: hypoplasty today at noon Senior Sales Compensation Analyst spoke with Sury on med surg unit, informed her that pt's surgery has been rescheduled for noon on 12/11/2022. Also informed caller that surgeon wants patient to eat today & NPO at midnight. Caller verbalized an understanding. Senior Sales Compensation Analyst spoke with RASHIDA Armijo, for report. Senior Sales Compensation Analyst informed that pt has an active order [...] from the original note were not included. [facility] Office: [phone] Aditya Zapata DO, Teo Espitia DO, Haroon [...] Gillespie DO, Augustus Pak MD, No Walton, GOLF CLUB HEAD INSPECTOR, Kendra Ramirez, GOLF CLUB HEAD INSPECTOR, Aviva Barnett, GOLF CLUB HEAD INSPECTOR, Hamzah Hartman, GOLF CLUB HEAD INSPECTOR, Yudith Shell, KIRTI, Karissa Nguyen, GOLF CLUB HEAD INSPECTOR, Julissa Landis, GOLF CLUB HEAD INSPECTOR, Genet Vega, GOLF CLUB HEAD INSPECTOR, Keri Dietz, GOLF CLUB HEAD INSPECTOR, Shirley Helton, GOLF CLUB HEAD INSPECTOR, Deuce Guthrie PA-C, Anabelle Mccoy, SIENE MAKER, Aparna Bryant, GOLF CLUB HEAD INSPECTOR, Rebekah Duran, [facility] IN-PATIENT SERVICE [facility] Progress Note 12/10/2022 11:07 AM Name: Rebekah Lei Acct: [id number] Room: [address] [place] [address] Day: 1 Admit Date: 12/08/2022 8:59 PM [...] No results for input(s): PROT, LABALBU, LABA1C, H8HGCPJ, O2JRHDV, FT4, TSH, AST, ALT, LDH, GGT, ALKPHOS, LABGGT, BILITOT, BILIDIR, AMMONIA, AMYLASE, LIPASE, LACTATE, CHOL, HDL, LDLCHOLESTEROL, CHOLHDLRATIO, TRIG, VLDL, KPY34GX, PHENYTOIN, PHENYF, URICACID, POCGLU in the last 72 hours. ABG:No results found for: POCPH, PHART, PH, POCPCO2, ZLG4DZR, PCO2, POCPO2, PO2ART, PO2, POCHCO3, XVG2CGL, HCO3, NBEA, PBEA, BEART, BE, THGBART, THB, SWO1VKI, CMYR3FEZ, I0LAUSXL, O2SAT, FIO2 No results found for: SPECIAL [...] cord injury, closed, initial encounter ([facility]) 12/09/2022 Yes Pleural effusion, right [...] original note were not included. Occupational Therapy [facility] Occupational Therapy Not Seen Note DATE: 12/10/2022 NAME: Rebekah Lei : 1935 Patient not seen this date for Occupational Therapy due to: Other: Awaiting thoracic/lumbar MRI and orthosx POC following MRI results Next Scheduled Treatment: Will check back PM as able or 12/11/2022 documented in this encounter [facility] [employer] [facility] Work Phone: 12-13-2022 Note PROCEDURE: ULTRASOUNDGUIDED RIGHT [...] chest with one percent lidocaine. A 5 [place] Yueh needle was advanced into the pleural [...] 800 mL clear yellow fluid was removed. [facility] [facility] 12-13-2022 Note PROCEDURE: ULTRASOUNDGUIDED [...] chest with one percent lidocaine. A 5 [place] Yueh needle was advanced into the pleural [...] 800 mL clear yellow fluid was removed. [facility] 12-13-2022 History of Present illness Narrative Pt arrives to room with EMS for rt therapeutic thoracentesis JR Pa and CM RT to bedside Site prepped and draped Access obtained on right 800ml of clear dark yellow fluid removed Tolerated well Return to [facility] with transport documented in this encounter [employer] Phone: 12-11-2022 Miscellaneous Notes Contact Type: General Care Coordination Activity Patient was scheduled for f/u with PCP today. This was cancelled, as patient is currently admitted to [facility] for fall and lumbar compression fracture. documented in this encounter [facility] 12-11-2022 Telephone encounter Note Contact Type: General Care Coordination Activity Patient was scheduled for f/u with PCP today. This was cancelled, as patient is currently admitted to [facility] for fall and lumbar compression fracture. [facility] Diagnosis Fracture of lumbar spine without cord injury, closed, initial encounter (HCC)- Primary Lumbar compression fracture, sequela Pleural effusion, right Unspecified pleural effusion Atrial fibrillation with rapid ventricular response (HCC) Atrial fibrillation Anasarca Edema documented in this encounter [employer] Phone: evaluation note* Diagnosis Status post umbilical hernia repair, follow-up exam- Primary Follow-up examination, following other surgery documented in this encounter [facility] SystemInstructionsNot on filedocumented in this encounter [facility] SystemInstructionsNot on filedocumented in this encounter [facility] SystemInstructionsNot on filedocumented in this encounter [facility] Advance Directives No Advanced Directives Records FoundDocuments on File Type Date Recorded Patient Mobile Patrol Officer Expl anation DNR Physician Order 07/19/2023 10:17 [...] Inactivated Comments DNR Comfort Care Arrest (DNR-CCA) [place] 07/08/2023 5:51 PM 07/12/2023 5:41 PM Code Status History Code Status Date Activated Date Inactivated Comments DNR Comfort Care Arrest (DNR -CCA) [place] 11/07/2022 7:10 AM 11/08/2022 8:15 PM Full Code 08/15/2022 6:14 PM 08/20/2022 12:34 AM Full Code 07/22/2021 11:21 AM 07/22/2021 5:22 PM Full Code 05/30/2021 2:17 PM 06/02/2021 5:36 PM Documents on File Type Date Recorded Patient Mobile Patrol Officer Expl anation Advance Directive 10/29/2024 7:51 PM [...]
Care Teams (unrecognized sec tion and content) Master Cosmetologist Relationship Specialty Start Date End Date Hawa Garzon [address] [place] [id number] PCP - General High School Business Teacher 12/11/22 Master Cosmetologist Relationship Specialty Start Date End Date Hawa Garzon [address] [place] [phone] PCP - General High School Business Teacher 12/11/22 Master Cosmetologist Relationship Specialty Start Date End Date Hawa Garzon APRN-[employer] INSPECTOR [address] [place] [phone] PCP - General Family Medicine 05/30/21 Master Cosmetologist Relationship Specialty Start Date End Date Hawa Garzon APRN-CNP [address] [place] [phone] PCP - General Family Medicine 05/30/21 Master Cosmetologist Relationship Specialty Start Date End Date Kelly Addison MD [id number] [facility] [place] [address] PCP - General Internal Medicine 10/29/24 INFORMATION SOURCE (unrecogn ized section and content) DATE CREATED AUTHOR 01/22/2023 [facility] DATE CREATED AUTHOR AUTHOR'S ORGANIZ ATION 02/12/2023 [facility] DATE CREATED AUTHOR AUTHOR'S ORGANIZ ATION 11/17/2023 [facility] DATE CREATED AUTHOR AUTHOR'S ORGANIZ ATION 10/31/2024 [facility] DATE CREATED AUTHOR AUTHOR'S ORGANCLAIRE ATION 11/15/2024 [facility] DATE CREATED AUTHOR AUTHOR'S ORGANCLAIRE ATION 01/31/2025 [facility] FOR RECORDS PERTAINING TO PATIENTS WHO [...] BE BASED ON THE PRIMARY CLINICAL RECORDS. [employer] provides no warranty or guarantee of the accuracy or completeness of information in this document.
[2025-04-15 16:31] LABS: Anion Gap 14.7; Blood Urea Nitrogen 60.0 mg/dL (7.0-18.0); Calcium 9.5 mg/dL (8.5-10.1); Carbon Dioxide 24.8 mmol/L (21.0-32.0); Chloride 107 mmol/L (98-107); Estimated GFR (African America 39 (>=60 mL/min/1.73m^2); Estimated GFR (Non-African Ame 33 (>=60 mL/min/1.73m^2); Glucose 97 mg/dL (74-106); Potassium 4.5 mmol/L (3.5-5.1); Sodium 142 mmol/L (136-145)
== END 2025-04-15 16:03 | disposition home or self-care (01) ==
LOC: LAB 16:02
PROVIDERS: PCP Student in an Organized Health Care Education/Training Program; Visit Provider Student in an Organized Health Care Education/Training Program
DX: E86.0 Dehydration (principal)
CPT/HCPCS: 36415; 80048